=== PATIENT | female | born 1960 | race Two or more races ===

== ENCOUNTER 2022-08-14 09:48 | Outpatient (OUT) | payer MEDICARE, SELFPAY ==
--- NOTE | 2022-08-14 10:05 | CT_ITS ---
[address] [address] Patient Name: MYRIAM GARCIA MRN: [id number] date: 1960 Sex: F Assigned Patient Location: CT Current Patient Location: CT Accession/Order Number: [id number] Exam Date: 08/14/2022 10:08 Report Date: 08/14/2022 13:10 At the request of: YONY GOODE Procedure: CT lung screening low-dose EXAMINATION: CT lung screening low-dose HISTORY: COPD J44.9 COMPARISON: CT chest 02/28/2022 TECHNIQUE: Axial, Coronal, and Sagittal images were created without the administration of IV contrast material. Dose reduction techniques were achieved by using automated exposure control and/or adjustment of mA and/or kV according to patient size and/or use of iterative reconstruction technique. FINDINGS: LUNGS: Small blebs within the peripheral right lung apex. No acute infiltrates, suspicious nodules, or significant chronic interstitial changes. Clearing of previously seen small opacity within posterior lateral right costophrenic angle. Borderline mild bronchiectasis. PLEURA: No mass, effusion, or pneumothorax. VASCULATURE: No abnormality. LASHONDA: No mass or pathologic adenopathy. MEDIASTINUM: No mass or pathologic adenopathy. CARDIAC: Atherosclerotic coronary artery disease. No pericardial effusion. AORTA: No aneurysm or dissection. CHEST WALL: No mass or axillary adenopathy BONES: No bone lesion or fracture. LIMITED ABDOMEN: No suspicious findings. Limited images of the upper abdomen. OTHER: Negative. IMPRESSION: 1. Lung-RADS Category 1 Negative. No nodules and definitely benign nodules. Continue annual screening with LDCT in 12 months. Electronically authenticated by: KWAME RICARDO Date: 08/14/2022 13:10
== END 2022-08-14 09:49 ==
LOC: CT 09:56
PROVIDERS: PCP Family Medicine; Visit Provider Family Medicine
DX: J44.9 Chronic obstructive pulmonary disease, unspecified (principal)
CPT/HCPCS: 71271

== ENCOUNTER 2022-10-30 09:42 | Outpatient (OUT) | payer MEDICARE, SELFPAY ==
[2022-10-30 11:06] LABS: Basophils Absolute Auto 0.1 10^3/uL (0.0-0.1); Basophils Percent Auto 0.9 % (0.2-2.0); Eosinophils Absolute Auto 0.1 10^3/uL (0.0-0.7); Hematocrit 38.5 % (36.0-48.0); Hemoglobin 13.1 g/dL (12.0-16.0); Immature Granulocytes Abs Auto 0.03 10^3/uL (0.00-0.03); Immature Granulocytes Pct Auto 0.4 % (0.0-0.5); Lymphocytes Absolute Auto 1.3 10^3/uL (1.2-3.8); Lymphocytes Percent Auto 18.5 % (20.5-60.0); Mean Corpuscular Hemoglobin 30.8 pg (26.7-34.0); Mean Corpuscular Volume 90.6 fL (81.0-99.0); Mean Platelet Volume 12.3 fL (9.5-13.5); Monocytes Absolute Auto 0.5 10^3/uL (0.3-0.8); Monocytes Percent Auto 6.7 % (1.7-12.0); Neutrophils Absolute Auto 5.1 10^3/uL (1.4-6.5); Neutrophils Percent Auto 72.5 % (43.0-75.0); Platelet Count 175 10^3/uL (150-450); Red Blood Count 4.25 10^6/uL (4.20-5.40); Red Cell Distribution Width 15.6 % (11.0-15.0)
[2022-10-30 12:08] LABS: Estimated Average Glucose 120 mg/dL; Glycohemoglobin A1C 5.8 % (4.5-6.2)
[2022-10-30 12:51] LABS: Alanine Aminotransferase 20 U/L (14-59); Albumin Globulin Ratio 0.9; Albumin Level 3.7 g/dL (3.4-5.0); Alkaline Phosphatase 148 U/L (46-116); Aspartate Amino Transferase 15 U/L (15-37); BUN Creatinine Ratio 12.6; Bilirubin Total 0.5 mg/dL (0.2-1.0); Carbon Dioxide 25.9 mmol/L (21.0-32.0); Chloride 101 mmol/L (98-107); Chol HDL Ratio 4.6; Cholesterol 228 mg/dL (<=200); Estimated GFR (African America 51 (>=60); Estimated GFR (Non-African Ame 42 (>=60); Free T3 2.18 pg/mL (2.18-3.98); Globulin 4.2 g/dL; Glucose 140 mg/dL (74-106); HDL Cholesterol 50 mg/dL (40-60); Potassium 3.9 mmol/L (3.5-5.1); Sodium 137 mmol/L (136-145); Thyroid Stimulating Hormone 3.055 uIU/mL (0.358-3.740); Total Protein 7.9 g/dL (6.4-8.2); Triglycerides 178 mg/dL (<=150); VLDL CHOLESTEROL 35.6 mg/dL
== END 2022-10-30 09:43 | disposition home or self-care (01) ==
LOC: LAB 09:45
PROVIDERS: PCP Family Medicine; Visit Provider Family Medicine
DX: E03.9 Hypothyroidism, unspecified (principal); R53.82 Chronic fatigue, unspecified
CPT/HCPCS: 36415; 80053; 80061; 82306; 83036; 84436; 84443; 84481; 85025

== ENCOUNTER 2023-03-19 09:49 | Outpatient (OUT) | payer OTHER, SELFPAY ==
[2023-03-19 12:46] LABS: Anion Gap 12.8; BUN Creatinine Ratio 14.5; Calcium 8.9 mg/dL (8.5-10.1); Carbon Dioxide 26.3 mmol/L (21.0-32.0); Chloride 105 mmol/L (98-107); Estimated GFR (African America 36 (>=60); Estimated GFR (Non-African Ame 30 (>=60); Glucose 155 mg/dL (74-106); Potassium 4.1 mmol/L (3.5-5.1); Sodium 140 mmol/L (136-145)
== END 2023-03-19 09:50 | disposition home or self-care (01) ==
PROVIDERS: PCP Family Medicine; Visit Provider Nurse Practitioner
DX: I25.10 Atherosclerotic heart disease of native coronary artery without angina pectoris (principal); I10 Essential (primary) hypertension
CPT/HCPCS: 36415; 80048

== ENCOUNTER 2023-04-16 09:17 | Outpatient (OUT) | payer OTHER, SELFPAY ==
--- OUTSIDE RECORDS SUMMARY | 2023-04-16 09:21 | XMS_ITS | CCD ---
Author Name Unknown Address [address] [facility] [address] [place] [address] Organization [facility] Care Team Providers Care Search Engine Optimization Specialist Name Role Phone PHYSICIAN, DEFAULT Unavailable Unavailable PHYSICIAN, DEFAULT Unavailable Unavailable YONY GOODE Unavailable Unavailable PHYSICIAN, DEFAULT Unavailable Unavailable PHYSICIAN, DEFAULT Unavailable Unavailable YONY GOODE Unavailable Unavailable HOY ., DR BHAKTA Admitting Unavailable HOY ., DR BHAKTA Attending Unavailable HOY ., DR BHAKTA Primary Care Unavailable HOY ., DR BHAKTA Consulting Unavailable ZIEBER, DR ALEX Palma Consulting Unavailable ELTAHAWY, DR SULLIVAN Admitting Unavailable ELTAHAWY, DR SULLIVAN Attending Unavailable HOY ., DR BHAKTA Primary Care Unavailable ELTAHAWY, DR SULLIVAN Consulting Unavailable HOY ., DR BHAKTA Admitting Unavailable HOY ., DR BHAKTA Attending Unavailable HOY ., DR BHAKTA Primary Care Unavailable HOY ., DR BHAKTA Consulting Unavailable HOY ., DR BHAKTA Primary Care Unavailable PAY ., DR HOLLY Admitting Unavailable PAY ., DR HOLLY Attending Unavailable ZIEBSHOSHANA, DR ALEX Palma Consulting Unavailable PAY ., DR HOLLY Consulting Unavailable HOY ., DR BHAKTA Admitting Unavailable HOY ., DR BHAKTA Attending Unavailable HOY ., DR BHAKTA Primary Care Unavailable HOY ., DR BHAKTA Consulting Unavailable [place], DR MICHAEL Turcios Consulting Unavailable HOY ., DR BHAKTA Admitting Unavailable HOY ., DR BHAKTA Attending Unavailable HOY ., DR BHAKTA Primary Care Unavailable HOY ., DR BHAKTA Consulting Unavailable ZIEBER, DR ALEX Palma Consulting Unavailable BRAINSHONA Attending Unavailable BRAIN, SHONA Attending Unavailable BRAIN, SHONA Attending Unavailable Allergies Allergy Classification Reported Allergen(s) Allergy Type Date of Onset Reaction(s) Facility (1 source) acetaminophen / propoxyphene; Translations: [Darvocet] Drug Allergy 2 [facility] Repository (3 sources) Penicillins; Translations: [PENICILLINS] Drug allergy (disorder) 2 [facility] Repository (1 source) Darvocet-N 100 Drug allergy (disorder) 3 [facility] Repository (1 source) PROPOXYPHENE N-ACETAMINOPHEN; Translations: [PROPOXYPHENE N-ACETAMINOPHEN] Propensity to adverse reactions to drug (disorder) 4 [facility] Repository Problems Active Problems Problem Classification Problem Date Documented Date Episodic/Chronic Chronic obstructive pulmonary disease and bronchiectasis (1 source) Chronic obstructive pulmonary disease, unspecified; Translations: [COPD UNSPECIFIED] Onset: 03-19-2022 Chronic Coronary atherosclerosis and other heart disease (2 sources) Atherosclerotic heart disease of [place] coronary artery without angina pectoris; Translations: [Atherosclerotic heart disease of [place] coronary artery without angina pectoris] Onset: 03-20-2022 Chronic Coronary atherosclerosis and other heart disease (1 source) Presence of coronary angioplasty implant and graft; Translations: [PRESENCE COR ANGPLSTY IMPLANT AND GRAFT] Onset: 07-20-2022 Episodic Diabetes mellitus with complications (1 source) Type 2 diabetes mellitus with diabetic neuropathy, unspecified; Translations: [TYPE 2 DM W/DIABETIC NEUROPATHY UNS] Onset: 03-19-2022 Chronic Diabetes mellitus without complication (1 source) Type 2 diabetes mellitus without complications; Translations: [TYPE 2 DM WITHOUT COMPLICATIONS] Onset: 07-20-2022 Chronic Disorders of lipid metabolism (2 sources) Mixed hyperlipidemia; Translations: [Mixed hyperlipidemia] Onset: 03-20-2022 Chronic Essential hypertension (6 sources) Essential (primary) hypertension; Translations: [ESSENTIAL PRIMARY HYPERTENSION] Onset: 03-20-2022 Chronic Heart valve disorders (2 sources) Nonrheumatic mitral (valve) insufficiency; Translations: [Nonrheumatic mitral (valve) insufficiency] Onset: 03-20-2022 Chronic Malaise and fatigue (1 source) Chronic fatigue, unspecified; Translations: [CHRONIC FATIGUE UNSPECIFIED] Onset: 07-02-2022 Chronic Menopausal disorders (1 source) Hormone replacement therapy; Translations: [HORMONE REPLACEMENT THERAPY] Onset: 07-20-2022 Episodic Multiple sclerosis (5 sources) Multiple sclerosis; Translations: [MULTIPLE SCLEROSIS] Onset: 08-19-2021 Chronic Nonspecific chest pain (8 sources) Chest pain, unspecified; Translations: [Other chest pain] Onset: 03-15-2022 Episodic Other aftercare (1 source) 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; Translations: [[facility] CURRENT USE OF ASPIRIN] Onset: 07-20-2022 Episodic Other aftercare (1 source) 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 components assembler (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; Translations: [OTH FORM MAKER PLASTER CURRENT DRUG THERAPY] Onset: 07-20-2022 Episodic Other nutritional; endocrine; and metabolic disorders (1 source) Obesity, unspecified; Translations: [OBESITY UNSPECIFIED] Onset: 07-20-2022 Chronic Other nutritional; endocrine; and metabolic disorders (1 source) Body mass index (BMI) 25.0-25.9, adult; Translations: [BODY MASS INDEX BMI 25.0-25.9 ADULT] Onset: 07-20-2022 Episodic Other upper respiratory infections (1 source) Acute upper respiratory infection, unspecified; Translations: [ACUTE UP RESPIRATORY INFECTION UNS] Onset: 07-20-2022 Episodic Residual codes; unclassified (1 source) Acquired absence of other specified parts of digestive tract; Translations: [ACQ ABSENCE OTH PART DIGESTV TRACT] Onset: 07-20-2022 Episodic Residual codes; unclassified (1 source) Acquired absence of both cervix and uterus; Translations: [ACQUIRED ABSENCE BOTH CERVIX AND UTERUS] Onset: 07-20-2022 Episodic Substance-related disorders (5 sources) Nicotine dependence, cigarettes, uncomplicated; Translations: [NICOTINE DEPEND CIGARETTES UNCOMP] Onset: 02-28-2022 Chronic Thyroid disorders (5 sources) Hypothyroidism, unspecified; Translations: [HYPOTHYROIDISM UNSPECIFIED] Onset: 06-28-2022 Chronic Unclassified (2 sources) COUGH, UNSPECIFIED; Translations: [COUGH, UNSPECIFIED] Onset: 07-20-2022 Past or Other Problems Problem Classification Problem Date Documented Da te Episodic/Chronic Unclassified (1 source) COUGH, UNSPECIFIED; Translations: [COUGH, UNSPECIFIED] Onset: 07-19-2022 Results Test Name Value Interpretation Reference Range Facility 37on 04-12-2023 37 Decrease lisinopril to 10 mg daily from 20 mg because of elevated kidney function Start hydralazine 25 mg three times a day Normal [facility] Office Visiton 04-12-2023 Follow-up visit [id number] Deepthi Garcia 1960 F Date Provider Department Center 04/12/2023 SHONA SULLIVAN Family History Problem Relation Age of Onset Heart failure Mother Diabetes Mother Dementia Mother Other Father Family Status - Relation Status Age at Mother Father Level of Service:53176 [place] OFFICE/OUTPATIENT ESTABLISHED MOD MDM 30 MIN Normal [facility] Documentationon 03-20-2023 Documentation [id number] Deepthi Garcai 1960 F Date Provider Department Center 03/20/2023 SHONA SULLIVAN Family History Problem Relation Age of Onset Heart failure Mother Diabetes Mother Dementia Mother Other Father Family Status - Relation Status Age at Mother Father Normal [facility] 37on 03-14-2023 37 Increase lisinopril to 20 mg daily (you may take 2 tablets daily until this pill bottle is gone- the next bottle of lisinopril should be 20 mg tablets) Have blood drawn next week to check kidney function Take script for b/p cuff to pharmacy- monitor b/p 1-2 times a day and write down on a paper- bring paper to our next visit. Goal b/p is less than 130/80 Normal [facility] Office Visiton 03-14-2023 Follow-up visit [id number] Deepthi Garcia 1960 F Date Provider Department Center 03/14/2023 SHONA SULLIVAN Family History Problem Relation Age of Onset Heart failure Mother Diabetes Mother Dementia Mother Other Father Family Status - Relation Status Age at Mother Father Level of Service:02029 [place] OFFICE/OUTPATIENT ESTABLISHED MOD MDM 30 MIN Normal [facility] Office Visiton 10-31-2022 Follow-up visit [id number] Deepthi Garcia 1960 F Date Provider Department Center 10/31/2022 SHONA SULLIVAN Family History Problem Relation Age of Onset Heart failure Mother Diabetes Mother Dementia Mother Other Father Family Status - Relation Status Age at Mother Father Level of Service:08961 [place] OFFICE/OUTPATIENT ESTABLISHED MOD MDM 30-39 MIN Reason for Visit and Comments: Follow-up [169625] - 6 month follow up Normal [facility] GROUP A STREP CULTUREon 07-10 S. pyogenes Ag Ql (Unsp spec) Culture Observations: NEGATIVE FOR GROUP A STREPTOCOCCUS. Normal [facility] Comment on above: Performed By: #### S STEFANO GRASTCX ####[facility] [id number] [place], [place] [address]Se. Marbella Jeffery STREPT SCREENon 07-19-2022 STREP SCREEN A Negative Normal NEGATIVE [facility] Comment on above: Performed By: #### S STEFANO GRASTCX ####[facility] [id number] [place], [place] [address]Gy. Marbella Jeffery XR CHEST 2 Von 07-19-2022 XR CHEST 2 V EXAMINATION: XR CHEST 2 V HISTORY: COUGH , congestion COMPARISON: XR chest 08/05/2020 FINDINGS: LUNGS: Hyperexpanded lungs. No significant pulmonary parenchymal abnormalities. VASCULATURE: No increased pulmonary vasculature. PLEURA: No pneumothorax, effusion, or pleural thickening. CARDIAC: No cardiomegaly or cardiac silhouette abnormality. MEDIASTINUM: No visible mass or adenopathy. BONES: No fracture or visible bone lesion. OTHER: Negative. IMPRESSION: 1. No acute cardiopulmonary process. Electronically authenticated by: ALEX LEWIS Date: 2022-07-19 10:18 Normal [facility] CBC AUTO DIFFon 06-28-2022 BASO # 0.1 103/ul Normal 0.0-0.[address] [facility] Comment on above: Performed By: #### C BC #### [facility] [address] [address] [address] Marbella Jeffery Basophils/100 WBC (Bld) 0.7 % Normal 0.2-2.0 [facility] Comment on above: Performed By: #### C BC #### [facility] [address] [address] [address] Marbella Jeffery EO # 0.2 103/ul Normal 0.0-0.[address] [facility] Comment on above: Performed By: #### C BC #### [facility] [address] [address] [address] Marbella Jeffery Eosinophils/100 WBC (Bld) 1.8 % Normal 0.9-7.[address] [facility] Comment on above: Performed By: #### C BC #### [facility] [address] [place] [address] Dr. Marbella Jeffery Erythrocyte distribution width (RBC) [Ratio] 13.5 % Normal 11.0-15.[address] [facility] Comment on above: Performed By: #### C BC #### [facility] [address] [place] [address] Dr. Marbella Jeffery Hematocrit (Bld) [Volume fraction] 35.2 % Critically low 36.0-48.[address] [facility] Comment on above: Performed By: #### C BC #### [facility] [address] [place] [address] Dr. Marbella Jeffery Hemoglobin (Bld) [Mass/Vol] 11.8 g/dL Critically low 12.0-16.[address] [facility] Comment on above: Performed By: #### C BC #### [facility] [address] [place] [address] Dr. Marbella Jeffery IG # 0.02 10e3/ul Normal 0.00-0.[address] [facility] Comment on above: Performed By: #### C BC #### [facility] [address] [place] [address] Dr. Marbella Jeffery IG % 0.2 % Normal 0.0-0.[address] [facility] Comment on above: Performed By: #### C BC #### [facility] [address] [place] [address] Dr. Marbella Jeffery LYMPH # 2.2 103/ul Normal 1.2-3.[address] [facility] Comment on above: Performed By: #### C BC #### [facility] [address] [place] [address] Dr. Marbella Jeffery Lymphocytes/100 WBC (Bld) 25.2 % Normal 20.5-60.[address] [facility] Comment on above: Performed By: #### C BC #### [facility] [address] [place] [address] Dr. Marbella Jeffery MANUAL DIFF REQ NO Normal [facility] Comment on above: Performed By: #### C BC #### [facility] [address] [place] [address] Dr. Marbella Jeffery MCH (RBC) [Entitic mass] 30.3 pg Normal 26.7-34.[address] [facility] Comment on above: Performed By: #### C BC #### [facility] [address] [place] [address] Dr. Marbella Jeffery MCHC (RBC) [Mass/Vol] 33.5 g/dL Normal 29.9-35.[address] [facility] Comment on above: Performed By: #### C BC #### [facility] [address] [place] [address] Dr. Marbella Jeffery MCV (RBC) [Entitic vol] 90.3 fL Normal 81.0-99.[address] [facility] Comment on above: Performed By: #### C BC #### [facility] [address] [place] [address] Dr. Marbella Jeffery MONO # 0.8 103/ul Normal 0.3-0.[address] [facility] Comment on above: Performed By: #### C BC #### [facility] [address] [place] [address] Dr. Marbella Jeffery Monocytes/100 WBC (Bld) 9.2 % Normal 1.7-12.[address] [facility] Comment on above: Performed By: #### C BC #### [facility] [address] [place] [address] Dr. Marbella Jeffery NEUT # 5.5 103/ul Normal 1.4-6.[address] [facility] Comment on above: Performed By: #### C BC #### [facility] [address] [place] [address] Dr. Marbella Jeffery Neutrophils/100 WBC (Bld) 62.9 % Normal 43.0-75.[address] [facility] Comment on above: Performed By: #### C BC #### [facility] [address] [place] [address] Dr. Marbella Jeffery Platelet mean volume (Bld) [Entitic vol] 11.2 fL Normal 9.5-13.[address] [facility] Comment on above: Performed By: #### C BC #### [facility] [address] [address] [address] Marbella Jeffery PLT 203 103/ul Normal 150-[address] [facility] Comment on above: Performed By: #### C BC #### [facility] [address] [address] [address] Marbella Jeffery RBC 3.90 106/ul Critically low 4.20-5.40 [facility] Comment on above: Performed By: #### C BC #### [facility] [address] [address] [address] Marbella Jeffery WBC 8.7 103/ul Normal 4.0-11.[address] [facility] Comment on above: Performed By: #### C BC #### [facility] [address] [place] [address] Dr. Marbella Jeffery FREE THYROXINE INDEX T7on FTI 5.09 Critically high 1.30-4.50 [facility] Comment on above: Performed By: #### T SH, LIPID, CMP, T7 #### [facility] [address] [address] [address] Marbella Jeffery T3U 38.0 % Normal 30.0-39.[address] [facility] Comment on above: Performed By: #### T SH, LIPID, CMP, T7 #### [facility] [address] [place] [address] Dr. Marbella Jeffery T4 [Mass/Vol] 13.40 ug/dL Normal 4.80-13.90 [facility] Comment on above: Performed By: #### T SH, LIPID, CMP, T7 #### [facility] [address] [place] [address] Dr. Marbella Jeffery LIPID PROFILEon 06-28-2022 CHOL-HDL RATIO NORM SEE BELOW Normal [facility] Comment on above: Result Comment: 3.3 - 4.4 LOW RISK 4.4 - 7.1 AVERAGE RISK 7.1 - 11.0 MODERATE RISK >11.0 HIGH RISK Performed By: #### T SH, LIPID, CMP, T7 #### [facility] [address] [address] [address] Marbella Jeffery Cholesterol [Mass/Vol] 137 mg/dL Normal <=[address] [facility] Comment on above: Performed By: #### T SH, LIPID, CMP, T7 #### [facility] [address] [address] [address] Marbella Jeffery Cholesterol in HDL [Mass/Vol] 44 mg/dL Normal 40-60 [facility] Comment on above: Performed By: #### T SH, LIPID, CMP, T7 #### [facility] [address] [address] [address] Marbella Jeffery Cholesterol in LDL [Mass/Vol] 67.2 mg/dL Normal [facility] Comment on above: Performed By: #### T SH, LIPID, CMP, T7 #### [facility] [address] [address] [address] Marbella Jeffery Cholesterol.total/Ch olesterol in HDL [Mass ratio] 3.1 {ratio} Normal [facility] Comment on above: Performed By: #### T SH, LIPID, CMP, T7 #### [facility] [address] [address] [address] Marbella Jeffery HDL NORMAL > or = 60 mg/dl - LOW CARDIOVASCULAR RISK <40 mg/dl - HIGH CARDIOVASCULAR RISK Normal [facility] Comment on above: Performed By: #### T SH, LIPID, CMP, T7 #### [facility] [address] [address] [address] Marbella Jeffery LDL CALC NORMAL SEE BELOW Normal [facility] Comment on above: Result Comment: <100 mg/dl OPTIMAL 100 - 129 mg/dl NEAR OR ABOVE OPTIMAL 130 - 159 mg/dl BORDERLINE HIGH 160 - 189 mg/dl HIGH >190 mg/dl VERY HIGH Performed By: #### T SH, LIPID, CMP, T7 #### [facility] [address] [address] [address] Marbella Jeffery Triglyceride [Mass/Vol] 129 mg/dL Normal <=150 [facility] Comment on above: Performed By: #### T SH, LIPID, CMP, T7 #### [facility] [address] [address] [address] Marbella Jeffery VLDL CALC 25.8 mg/dL Normal [facility] Comment on above: Performed By: #### T SH, LIPID, CMP, T7 #### [facility] [address] [address] [address] Marbella Jeffery PROF 14(COMP METB)on 023 Albumin [Mass/Vol] 3.1 g/dL Critically low 3.4-5.0 [facility] Comment on above: Performed By: #### T SH, LIPID, CMP, T7 #### [facility] [address] [address] [address] Marbella Jeffery Albumin/Globulin [Mass ratio] 0.7 {ratio} Normal [facility] Comment on above: Performed By: #### T SH, LIPID, CMP, T7 #### [facility] [address] [address] [address] Marbella Jeffery ALP [Catalytic activity/Vol] 168 U/L Critically high 46-[address] [facility] Comment on above: Performed By: #### T SH, LIPID, CMP, T7 #### [facility] [address] [address] [address] Marbella Jeffery ALT [Catalytic activity/Vol] 14 U/L Normal 14-[address] [facility] Comment on above: Performed By: #### T SH, LIPID, CMP, T7 #### [facility] [address] [address] [address] Marbella Jeffery Anion gap [Moles/Vol] 12.8 mmol/L Normal [facility] Comment on above: Performed By: #### T SH, LIPID, CMP, T7 #### [facility] [address] [address] [address] Marbella Jeffery AST [Catalytic activity/Vol] 13 U/L Critically low 15-[address] [facility] Comment on above: Performed By: #### T SH, LIPID, CMP, T7 #### [facility] [address] [address] [address] Marbella Jeffery Bilirubin [Mass/Vol] 0.4 mg/dL Normal 0.2-1.[address] [facility] Comment on above: Performed By: #### T SH, LIPID, CMP, T7 #### [facility] [address] [address] [address] Marbella Jeffery Calcium [Mass/Vol] 9.0 mg/dL Normal 8.5-10.1 [facility] Comment on above: Performed By: #### T SH, LIPID, CMP, T7 #### [facility] [address] [address] [address] Marbella Jeffery Chloride [Moles/Vol] 105 mmol/L Normal 98-[address] [facility] Comment on above: Performed By: #### T SH, LIPID, CMP, T7 #### [facility] [address] [place] [address] Dr. Marbella Jeffery CO2 [Moles/Vol] 27.9 mmol/L Normal 21.0-32.0 [facility] Comment on above: Performed By: #### T SH, LIPID, CMP, T7 #### [facility] [address] [place] [address] Dr. Marbella Jeffery Creatinine [Mass/Vol] 1.17 mg/dL Critically high 0.55-1.[address] [facility] Comment on above: Performed By: #### T SH, LIPID, CMP, T7 #### [facility] [address] [place] [address] Dr. Marbella Jeffery EGFR-AF [place]IZ[place] 56 mL/min/1.73m2 Critically low >=60 [facility] Comment on above: Performed By: #### T SH, LIPID, CMP, T7 #### [facility] [address] [place] [address] Dr. Marbella Jeffery EGFR-NON AF CITIZEN [place] 47 mL/min/1.73m2 Critically low >=[address] [facility] Comment on above: Performed By: #### T SH, LIPID, CMP, T7 #### [facility] [address] [address] [address] Marbella Jeffery Globulin (S) [Mass/Vol] 4.5 g/dL Normal [facility] Comment on above: Performed By: #### T SH, LIPID, CMP, T7 #### [facility] [address] [address] [address] Marbella Jeffery Glucose [Mass/Vol] 105 mg/dL Normal 74-106 [facility] Comment on above: Performed By: #### T SH, LIPID, CMP, T7 #### [facility] [address] [place] [address] Dr. Marbella Jeffery Potassium [Moles/Vol] 3.7 mmol/L Normal 3.5-5.[address] [facility] Comment on above: Performed By: #### T SH, LIPID, CMP, T7 #### [facility] [address] [address] [address] Marbella Jeffery Protein [Mass/Vol] 7.6 g/dL Normal 6.4-8.2 [facility] Comment on above: Performed By: #### T SH, LIPID, CMP, T7 #### [facility] [address] [place] [address] Dr. Marbella Jeffery Sodium [Moles/Vol] 142 mmol/L Normal 136-145 [facility] Comment on above: Performed By: #### T SH, LIPID, CMP, T7 #### [facility] [address] [place] [address] Dr. Marbella Jeffery Urea nitrogen [Mass/Vol] 14.0 mg/dL Normal 7.0-18.[address] [facility] Comment on above: Performed By: #### T SH, LIPID, CMP, T7 #### [facility] [address] [place] [address] Dr. Marbella Jeffery Urea nitrogen/Creatinine [Mass ratio] 12.0 mg/mg Normal [facility] Comment on above: Performed By: #### T SH, LIPID, CMP, T7 #### [facility] [address] [place] [address] Dr. Marbella Jeffery TSHon 06-28-2022 TSH Qn m[IU]/L Critically low 0.358-3.740 [facility] Comment on above: Result Comment: TEST REPEATED FOR VERIFICATION Performed By: #### T SH, LIPID, CMP, T7 #### [facility] [address] [place], [place] [address] Dr. Marbella Jeffery PROF CHEM 8 (BAS METB)on Anion gap [Moles/Vol] 11.2 mmol/L Normal [facility] Comment on above: Performed By: #### B MP ####[facility] [id number] [address]Dr. Marbella Jeffery Calcium [Mass/Vol] 9.2 mg/dL Normal 8.5-10.1 [facility] Comment on above: Performed By: #### B MP ####[facility] [id number] [address]Dr. Marbella Jeffery Chloride [Moles/Vol] 102 mmol/L Normal 98-[address] [facility] Comment on above: Performed By: #### B MP ####[facility] [id number] [address]Dr. Marbella Jeffery CO2 [Moles/Vol] 29.3 mmol/L Normal 21.0-32.0 [facility] Comment on above: Performed By: #### B MP ####[facility] [address] [address]Dr. Marbella Jeffery Creatinine [Mass/Vol] 1.32 mg/dL Critically high 0.55-1.[address] [facility] Comment on above: Performed By: #### B MP ####[facility] [id number] [address]Dr. Marbella Jeffery EGFR-AF CITIZEN [place] 49 mL/min/1.73m2 Critically low >=60 [facility] Comment on above: Performed By: #### B MP ####[facility] [address] [address]Dr. Marbella Jeffery EGFR-NON AF CITIZEN OF [place] 41 mL/min/1.73m2 Critically low >=[address] [facility] Comment on above: Performed By: #### B MP ####[facility] [id number] [address]Dr. Marbella Jeffery Glucose [Mass/Vol] 127 mg/dL Critically high 74-106 [facility] Comment on above: Performed By: #### B MP ####[facility] [address] [place] [address] [id number]. Nalinijv Jose D Potassium [Moles/Vol] 4.5 mmol/L Normal 3.5-5.[address] [facility] Comment on above: Performed By: #### B MP ####[facility] [address] [place] [id number]. Marbella Jeffery Sodium [Moles/Vol] 138 mmol/L Normal 136-145 [facility] Comment on above: Performed By: #### B MP ####[facility] [address] [id number]. Nalinijv Jose D Urea nitrogen [Mass/Vol] 20.0 mg/dL Critically high 7.0-18.[address] [facility] Comment on above: Performed By: #### B MP ####[facility] [address] [address]Dr. Marbella Jeffery Urea nitrogen/Creatinine [Mass ratio] 15.2 mg/mg Normal [facility] Comment on above: Performed By: #### B MP ####[facility] [address] [id number]. Marbella Jose D NM STRESS/REST MULTIon 03-15 NM STRESS/REST MULTI Patient: DEEPTHI GARCIA Exam Date: 03/15/2022 : 1960 Gender:F Ordering : DR YONY GOODE . Admission #: [id number] Family : Order #: [id number] CLICK HERE TO VIEW EXAM RADIOLOGY REPORT PROCEDURE: RADIONUCLIDE IMAGING STRESS/REST MULTI COMPARISON: NM STRESS/REST MULTI, 05/28/2019. INDICATIONS: Chest pain TECHNIQUE: Exam Description: Stress/Rest two day protocol gated SPECT Rest Imagin.3 mCi Tc-99m Cardiolite IV on 03/15/2022 Stress Imaging 31.6 mCi Tc-99m Cardiolite IV on 03/15/2022 Exercise Protocol: 0.4 mg Lexiscan given IV Heart Rate (bpm): Rest: 59 Max: 79 PMHR: 50 Blood Pressure: Rest: 212/102 Max: 260/108 Symptoms: Rest and peak stress ECG findings were abnormal and the exercise portion of the study was abnormal per attending physician Dr. Dickerson due to EKG changes, inferolateral downsloping, hypertensive with Lexiscan. For more details please see separate cardiac stress test report. FINDINGS: QUALITY OF STUDY: Excellent. PERFUSION DEFECT: None. LOCATION: N/A SIZE: N/A. SEVERITY: N/A. TYPE: N/A. WALL MOTION: Normal. LV SIZE: Normal. 87 mL. TID / TCD: None; 1.0 LVEF: Normal. Calculated EF 65%. SUMMARY: Myocardial perfusion imaging study is NORMAL. CONCLUSION: 1. Normal nuclear medicine myocardial perfusion scan 2. Abnormal exercise portion of study. Please see Dr. Dickerson's report. Dictated by: Alex Lewis M.D. on 03/16/2022 at 07:20 Approved by: Alex Lewis M.D. on 03/16/2022 at 07:[address] [facility] CT LUNG CANCER SCREENINGon 1 05-02-2021 CT LUNG CANCER SCREENING EXAMINATION: CT LUNG CANCER SCREENING HISTORY: Tobacco dependence caused by cigarettes COMPARISON: No relevant comparison available. TECHNIQUE: Axial, Coronal, and Sagittal images were created without the administration of IV contrast material. Dose reduction techniques were achieved by using automated exposure control and/or adjustment of mA and/or kV according to patient size and/or use of iterative reconstruction technique. FINDINGS: LUNGS: Mild emphysematous changes within the apices and mild apical pleural scarring. 9 x 11 x 11 mm patchy opacity within posterior lateral right costophrenic angle. PLEURA: No mass, effusion, or pneumothorax. VASCULATURE: No abnormality. LASHONDA: No mass or pathologic adenopathy. MEDIASTINUM: No mass or pathologic adenopathy. CARDIAC: No enlargement, pericardial thickening, or significant calcification. AORTA: Small aneurysmal outpouching along the posterior left lateral wall of the distal descending aorta, 3.2 cm in diameter (2.8 cm in diameter just above this level). CHEST WALL: No mass or axillary adenopathy BONES: No bone lesion or fracture. LIMITED ABDOMEN: No suspicious findings. Limited images of the upper abdomen. OTHER: Negative. IMPRESSION: 1. Lung-RADS Category 3- Probably benign. Probably benign finding(s)- short term follow up suggested; includes nodules with a low likelihood of becoming a clinically active cancer. Six month LDCT. 2. Focal opacity, likely infiltrate or atelectasis within posterior lateral right costophrenic angle. Follow-up CT chest in 6 months. 3. Tiny aneurysmal dilation of the descending thoracic aorta. This can be reevaluated at time of the six-month follow-up CT chest study. Electronically authenticated by: ALEX LEWIS Date: 2022-03-01 08:03 Normal [facility] MRI BRAIN WO W CONon 022 MRI BRAIN WO W CON EXAMINATION: MRI BRAIN WO W CON HISTORY: Multiple sclerosis , acute dizziness, recurrent visual change COMPARISON: No relevant comparison available. TECHNIQUE: A variety of imaging planes and parameters were utilized for visualization of suspected pathology. Images were performed with 14 ml Dotarem contrast. FINDINGS: Motion artifact limits exam from uncontrolled patient coughing CEREBRUM: No hemorrhage, acute infarct or mass. Extensive white matter signal abnormality with increased T2 and FLAIR signal but no associated restricted diffusion or postcontrast enhancement CEREBELLUM: No edema, hemorrhage, mass, acute infarction, or inappropriate atrophy. BRAINSTEM: No edema, hemorrhage, mass, acute infarction, or inappropriate atrophy. CSF SPACES: Ventricles, cisterns, and sulci are appropriate for age. No hydrocephalus, subarachnoid hemorrhage, or mass. SKULL: No mass or other significant visible lesion. SINUSES: Limited views demonstrate no significant mucosal thickening or fluid. ORBITS: Limited views are unremarkable. OTHER: No abnormal meningeal or parenchymal enhancement. IMPRESSION: Extensive white matter signal abnormality. Findings are consistent with known multiple sclerosis. No areas of restricted diffusion or postcontrast enhancement to suggest acute demyelination Electronically authenticated by: MICHAEL ELIZONDO Date: 2021-08-20 08:33 Normal [facility] CREATININEon 08-19-2021 Creatinine [Mass/Vol] 1.35 mg/dL Critically high 0.55-1.[address] [facility] Comment on above: Performed By: #### C SHILO #### [facility] [address] [address] [address] Marbella Jeffery EGFR-AF CITIZEN [place] 48 mL/min/1.73m2 Critically low >=60 [facility] Comment on above: Performed By: #### C SHILO #### [facility] [address] [address] [address] Marbella Jeffery EGFR-NON AF CITIZEN [place] 40 mL/min/1.73m2 Critically low >=60 [facility] Comment on above: Performed By: #### C SHILO #### [facility] [address] [address] [address] Marbella Jeffery Encounters Encounter Date Encounter Type Care Provider Facility Start: 04-12-2023 End: 04-12-2023 ambulatory [facility] Start: 03-14-2023 End: 03-14-2023 ambulatory [facility] Start: 10-31-2022 End: 10-31-2022 ambulatory [facility] Start: 07-19-2022 End: 07-19-[address] YONY GOODE . Facility:[facility] Start: 06-28-2022 End: 06-29-[address] YONY GOODE . Facility:[facility] Start: 03-28-2022 End: 03-29-[address] LAURIE ROB Facility:[facility] Start: 03-15-2022 End: 03-16-[address] YONY GOODE . Facility:[facility] Start: 02-28-2022 End: 03-01-[address] YONY GOODE . Facility:[facility] Start: 08-19-2021 End: 08-20-[address] YONY GOODE . Facility: Start: 12-27-2017 End: 12-28-2017 Patient encounter DEFAULT PHYSICIAN Facility:[facility] Start: 12-03-2017 End: 12-04-2017 Patient encounter DEFAULT PHYSICIAN Facility:[facility] Payers Date Payer Category Payer Medicare [id number] 2017 Unknown [id number] 1961 Medicaid [id number] 1961 Medicare [id number] 1960 Unknown [id number] 2.16.84 [id number] 1960 Unknown [id number] 2.16.84 [id number] 1960 Unknown [id number] 2.16.84 [id number] 1960 Unknown [id number] 2.16.84 [id number] 1960 Unknown [id number] 2.16.84 [id number] 1960 Unknown [id number] 2.16.84 [id number] Unknown Clinical Notes 10-31-2022 to 04-12-2023 Note Date & Type Note Facility 04-12-2023 Note Decrease lisinopril to 10 mg daily, repeat BMP in 1 week in light she is taking Chlorthalidone, lisinopril and aldactone. Hopefully renal function improves and HTN is controlled. [facility] 04-12-2023 Note [facility] CARDIOLOGY PROGR ESS NOTE HPI: Deepthi Garcia is a 63 y.o. female here for uncontrolled HTN with increased lisinopril and renal function increased. HPI 63 yo female presents to clinic for 1 month f/U and evaluation of HTN. Patient here for 1 mo follow up atypical chest pain, CAD, and hypertension. She was started on isosorbide, and lisinopril was increased at last visit. She states chest pain is less frequent. C/o fatigue and not feeling like myself . Patient states she no longer enjoys the things she used to enjoy. Advised her to see PCP for this for possible medication adjustment. Denies SOB, palpitations, and LE edema. After BMP on 03/19, Maddy Lawson wanted her to go back down on lisinopril due to elevated s.cr and add hydralazine. This change did not happen because we were unable to contact patient. Currently b/p is much improved but unfortunately her renal function elevated with increased lisinopril dose. Will decrease lisinopril back to 10 mg, add hydralazine 25 mg tid and repeat labs in 1 week to assess renal function Review of Systems Constitutional: Positive for malaise/fatigue. Cardiovascular: Positive for chest pain (less frequent). Musculoskeletal: Positive for back pain, joint pain, muscle weakness, myalgias and neck pain. Neurological: Positive for light-headedness. Psychiatric/Behavioral: The patient is nervous/anxious. All other systems reviewed and are negative. Visit Vitals BP 148/78 (BP Location: Left arm, Patient Position: Sitting) Pulse 54 Ht 1.575 m (5' 2 ) Wt 60.8 kg (134 lb) SpO2 100% BMI 24.51 kg/m??? Smoking Status Every Day BSA 1.63 m??? Allergies Allergen Reactions Penicillins Hives Darvocet-N 100 [Propoxyphene N-Acetaminophen] Other Medications: Current Outpatient Medications on File Prior to Visit Medication Sig Dispense Refill aspirin 81 mg EC tablet Take 1 tablet every day by oral route. carvedilol (Coreg) 25 mg tablet Take one tablet BID this replaces metoprolol (Patient taking differently: Take 25 mg by mouth with breakfast and with evening meal. Take one tablet BID this replaces metoprolol) 180 tablet 3 chlorthalidone (Hygroton) 25 mg tablet Take 1 tablet (25 mg) by mouth in the morning. 90 tablet 3 citalopram (CeleXA) 20 mg tablet Take 1 tablet every day by oral route for 30 days. diclofenac (Voltaren) 75 mg EC tablet Take 75 mg by mouth in the morning and at bedtime. Do not crush, chew, or split. ezetimibe (Zetia) 10 mg tablet Take 1 tablet (10 mg) by mouth at bedtime. 90 tablet 3 isosorbide mononitrate ER (Imdur) 30 mg 24 hr tablet Take 1 tablet (30 mg) by mouth in the morning. Do not crush or chew. 90 tablet 3 levothyroxine (Synthroid, Levoxyl) 200 mcg tablet Take 200 mcg by mouth before breakfast. lisinopril 10 mg tablet Take 1 tablet (10 mg) by mouth in the morning. (Patient taking differently: Take 20 mg by mouth in the morning.) 90 tablet 3 meclizine (Antivert) 25 mg tablet Take 1 tablet (25 mg) by mouth if needed in the morning, at noon, and at bedtime for dizziness. 30 tablet 1 simvastatin (Zocor) 20 mg tablet Take 1 tablet (20 mg) by mouth at bedtime. 90 tablet 3 spironolactone (Aldactone) 25 mg tablet Take 1 tablet (25 mg) by mouth in the morning. 90 tablet 3 hydrALAZINE (Apresoline) 25 mg tablet Take 1 tablet (25 mg) by mouth in the morning, at noon, and at bedtime. (Patient not taking: Reported on 04/12/2023) 90 tablet 11 pantoprazole (ProtoNix) 40 mg EC tablet Take 40 mg by mouth in the morning. [DISCONTINUED] cetirizine 10 mg capsule Take 1 capsule every day by oral route. [DISCONTINUED] donepezil (Aricept) 10 mg tablet Take 10 mg by mouth at bedtime. No current facility-administered medications on file prior to visit. Physical Exam: Constitutional: Appearance: Normal appearance. Without apparent distress HENT: Head: Normocephalic and atraumatic. Nose: Nose normal. Mouth/Throat: Mouth: Mucous membranes are moist. Eyes: Extraocular Movements: Extraocular movements intact. Conjunctiva/sclera: Conjunctivae normal. Neck: Vascular: No JVD. Cardiovascular: Rate and Rhythm: Normal rate and regular rhythm. Pulses: Radial pulses are 3 on the right side and 3on the left side. Posterior tibial pulses are 3 on the right side and 3 on the left side. Heart sounds: Normal heart sounds, S1 normal and S2 normal. Pulmonary: Effort: Pulmonary effort is normal. Breath sounds: Normal breath sounds. Abdominal: General: Bowel sounds are normal. Palpations: Abdomen is soft. Musculoskeletal: General: Normal range of motion. Cervical back: Normal range of motion. Right lower leg: No edema. Left lower leg: No edema. Skin: General: Skin is warm and dry. Capillary Refill: Capillary refill takes less than 2 seconds. Neurological: General: No focal deficit present. Mental Status: She is alert and oriented to person, place, and time. Psychiatric: Mood and Affect: Mood normal. (more content not included)... [facility] 04-12-2023 Note Patient here for 1 m o follow up atypical chest pain, CAD, and hypertension. She was started on isosorbide, and lisinopril was increased at last visit. She states chest pain is less frequent. C/o fatigue and not feeling like myself . Patient states she no longer enjoys the things she used to enjoy. Advised her to see PCP for this for possible medication adjustment. Denies SOB, palpitations, and LE edema. After BMP on 03/19, Maddy Lawson wanted her to go back down on lisinopril due to elevated s.cr and add hydralazine. This change did not happen because we were unable to contact patient. Review of Systems Constitutional: Positive for malaise/fatigue. Cardiovascular: Positive for chest pain (less frequent). Musculoskeletal: Positive for back pain, joint pain, muscle weakness, myalgias and neck pain. Neurological: Positive for light-headedness. Psychiatric/Behavioral: The patient is nervous/anxious. All other systems reviewed and are negative. [facility] 04-12-2023 Note Hypertension is much improved- but renal function increased therefore decrease lisinopril to 10 mg daily and add hydralazine 25 mg tid. Repeat labs- BMP in 1 week to check renal function RTC 1 month [facility] 04-12-2023 Note Coronary artery dise ase is stable Continue GDMT continue risk factor modifications- heart healthy diet, regular exercise as tolerated and continue all medications. [facility] 03-20-2023 Note At last visit HTN wa s uncontrolled therefore lisinopril was increased to 20 mg daily. Repeat BMP shows increased renal function with Bun 25 and CR 1.72, K+ normal Typically CR is around 1.2-1.3 Therefore will decrease lisinopril back to 10 mg daily and add hydralazine 25 mg po tid for HTN. Note that pt was not able to afford B/p cuff at this time. Repeat BMP in 1-2 weeks and RTC for B/P evaluation in 1 month please Staff to call and update pt. Shona Lawson NP Division of Cardiology, [facility]- [phone] Pager- [phone] Email- [email or web address] 03-20-2023 Note At last visit HTN wa s uncontrolled therefore lisinopril was increased to 20 mg daily. Repeat BMP shows increased renal function with Bun 25 and CR 1.72, K+ normal Typically CR is around 1.2-1.3 Therefore will decrease lisinopril back to 10 mg daily- or 1/2 tab of 20 mg tablets she has now and sent scipt for 10 mg daily, and add hydralazine 25 mg po tid for HTN. Note that pt was not able to afford B/p cuff at this time. Repeat BMP in 1-2 weeks and RTC for B/P evaluation in 1 month please Staff to call and update pt. Shona Lawson BILINGUAL ACCOUNT MANAGER Division of Cardiology, [facility]- [phone] Pager- [phone] Email- [email or web address] 03-14-2023 Note Will send script for meclizine for S/S of vertigo- pt to f/u with PCP for further evaluation and management [facility] 03-14-2023 Note Will add imdur to me d regime, d/w pt to call office for side effects- headache, hypotension or any concerns and she voiced understanding [facility] 03-14-2023 Note Patient here for 6 m o follow up chest pain, CAD, and hypertension. Says her intermittent chest pain remains unchanged. Denies SOB, LE edema, and palpitations. Had a dizzy spell that lasted 2 days around [place]. Says she feels anxious and jumpy and she isn't sure why. Review of Systems Constitutional: Positive for malaise/fatigue and weight loss (18# since 10/31/2022). Cardiovascular: Positive for chest pain (intermittent, unchanged). Musculoskeletal: Positive for back pain, joint pain, muscle weakness, myalgias and neck pain. Neurological: Positive for light-headedness. Psychiatric/Behavioral: The patient is nervous/anxious. All other systems reviewed and are negative. [facility] 03-14-2023 Note UTP CARDIOLOGY PROGR ESS NOTE HPI: Deepthi Garcia is a 62 y.o. female here for 6 mo follow up chest pain, CAD, and hypertension. Says her intermittent chest pain remains unchanged. Denies SOB, LE edema, and palpitations. Had a dizzy spell that lasted 2 days around [place]. Says she feels anxious and jumpy and she isn't sure why. States chest pain is intermittent, with stress and emotional upset, denied CP with exertion, and states CP is sharp like a needle prick middle of chest and lasts about a couple seconds and resolves. Denied SOB, N/V or sweating with CP. Denied SOB, Orthopnea, palpitations. States she can't look up because she gets dizzy. Admits dizzy spell at [place], states that the room starts spinning and I have fallen down twice. Review of Systems Constitutional: Positive for malaise/fatigue and weight loss (18# since 10/31/2022). Cardiovascular: Positive for chest pain (intermittent, unchanged). Musculoskeletal: Positive for back pain, joint pain, muscle weakness, myalgias and neck pain. Neurological: Positive for light-headedness. Psychiatric/Behavioral: The patient is nervous/anxious. All other systems reviewed and are negative. Visit Vitals BP (!) 210/90 (BP Location: Left arm, Patient Position: Sitting) Pulse 57 Ht 1.575 m (5' 2 ) Wt 61.7 kg (136 lb) SpO2 98% BMI 24.87 kg/m??? Smoking Status Every Day BSA 1.64 m??? Allergies Allergen Reactions Penicillins Hives Darvocet-N 100 [Propoxyphene N-Acetaminophen] Other Medications: Current Outpatient Medications on File Prior to Visit Medication Sig Dispense Refill aspirin 81 mg EC tablet Take 1 tablet every day by oral route. carvedilol (Coreg) 25 mg tablet Take one tablet BID this replaces metoprolol (Patient taking differently: Take 25 mg by mouth with breakfast and with evening meal. Take one tablet BID this replaces metoprolol) 180 tablet 3 chlorthalidone (Hygroton) 25 mg tablet Take 1 tablet (25 mg) by mouth in the morning. 90 tablet 3 citalopram (CeleXA) 20 mg tablet Take 1 tablet every day by oral route for 30 days. diclofenac (Voltaren) 75 mg EC tablet Take 75 mg by mouth in the morning and at bedtime. Do not crush, chew, or split. ezetimibe (Zetia) 10 mg tablet Take 1 tablet (10 mg) by mouth at bedtime. 90 tablet 3 levothyroxine (Synthroid, Levoxyl) 200 mcg tablet Take 200 mcg by mouth before breakfast. simvastatin (Zocor) 20 mg tablet Take 1 tablet (20 mg) by mouth at bedtime. 90 tablet 3 spironolactone (Aldactone) 25 mg tablet Take 1 tablet (25 mg) by mouth in the morning. 90 tablet 3 [DISCONTINUED] lisinopril 10 mg tablet Take 1 tablet (10 mg) by mouth in the morning. 90 tablet 3 cetirizine 10 mg capsule Take 1 capsule every day by oral route. donepezil (Aricept) 10 mg tablet Take 10 mg by mouth at bedtime. pantoprazole (ProtoNix) 40 mg EC tablet Take 40 mg by mouth in the morning. [DISCONTINUED] blood pressure test kit-medium kit 1 kit in the morning. 1 kit 0 No current facility-administered medications on file prior to visit. Physical Exam: Constitutional: Appearance: Normal appearance. Without apparent distress HENT: Head: Normocephalic and atraumatic. Nose: Nose normal. Mouth/Throat: Mouth: Mucous membranes are moist. Eyes: Extraocular Movements: Extraocular movements intact. Conjunctiva/sclera: Conjunctivae normal. Neck: Vascular: No JVD. Cardiovascular: Rate and Rhythm: Normal rate and regular rhythm. Pulses: Dorsalis pedis pulses are 3 on the right side and 3on the left side. Posterior tibial pulses are 3 on the right side and 3 on the left side. Heart sounds: Normal heart sounds, S1 normal and S2 normal. Pulmonary: Effort: Pulmonary effort is normal. Breath sounds: Normal breath sounds. Abdominal: General: Bowel sounds are normal. Palpations: Abdomen is soft. Musculoskeletal: General: Normal range of motion. Cervical back: Normal range of motion. Right lower leg: No edema. Left lower leg: No edema. Skin: General: Skin is warm and dry. Capillary Refill: Capillary refill takes less than 2 seconds. Neurological: General: No focal deficit present. Mental Status: She is alert and oriented to person, place, and time. Psychiatric: Mood and Affect: Mood normal. Behavior: Behavior normal. Thought Content: Thought content normal. Judgment: Judgment normal. Labs: 10/31/22 CBC normal BUN 16, CR 1.27- elevated K+ 3.9 normal A1C 5.8 normal Liver function stable Chol 228, Trig 178, LDL 143, HDL 50 Last lab values have been reviewed CV Testin03/15/22 Lexiscan stress test- normal perfusion scan EKG portion- inferolateral lead changes and HTN response- without any symptoms voiced 09/21/2020 Cardiac cath/PCI Echo 02/28/2019 Normal LV systolic function Mild MR Mild TR with increased pulm pressures- Assessment/Plan: Mitral valve regurgitation No concerning symptoms today Monitor with echocardiogram and F/ (more content not included)... [facility] 03-14-2023 Note Coronary artery dise ase is stable Continue GDMT- ASA, coreg, zetia, simvastatin, and lisinopril continue risk factor modifications- heart healthy diet, regular exercise as tolerated and continue all medications. [facility] 03-14-2023 Note Hypertension is unco ntrolled and pt states she is taking medications daily- reports she took all meds today Increase lisinopril to 20 mg daily and add imdur 30 mg for HTN and chest pain [facility] 03-14-2023 Note Continue zocor and zetia [facility] 03-14-2023 Note No concerning sympto ms today Monitor with echocardiogram and F/u assessment of any concerning symptoms [facility] 10-31-2022 Note Stable Monitor with routine echocardiograms [facility] 10-31-2022 Note Lipid abnormalities are stable- will not change any of her meds at this time in light that I don't feel she is taking meds as prescribed r/t turmoil in her life [facility] 10-31-2022 Note Hypertension is unco ntrolled- staff called pharmacy and they report that she has not filled her medications since June and should be out of her meds at this point. Pt reports that she still has her b/p and heart medications- and admits that she occasionally forgets to take her meds Continue all meds, monitor b/p and call office for concerns. Asked pt to reach out community resources, her jainism, family and friends for assistance. IF any concerning symptoms she is to call office or 911 and she voiced understanding of red flag symptoms. [facility] 10-31-2022 Note Coronary artery dise ase is currently stable Recent normal stress test in emir Continue GDMT- ASA, coreg, simvastatin and zetia continue risk factor modifications- heart healthy diet, regular exercise as tolerated and continue all medications. [facility] 10-31-2022 Note EKG today sinus rhyt hm and essentially unchanged from previous, no acute ST or T wave changes noted Most likely r/t emotional/family stress and uncontrolled b/p. [facility] 10-31-2022 Note [facility] CARDIOLOGY PROGR ESS NOTE HPI: Deepthi Garcia is a 62 y.o. female here for Follow-up (6 month follow up ) Chest Pain This is a recurrent problem. The current episode started more than 1 month ago. The onset quality is sudden. The problem occurs rarely. The problem has been resolved. The pain is present in the substernal region. The pain is at a severity of 3/10. The pain is mild. The quality of the pain is described as dull and heavy. The pain does not radiate. Pertinent negatives include no orthopnea, PND or shortness of breath. The pain is aggravated by emotional upset. She has tried nothing for the symptoms. Risk factors include post-menopausal, sedentary lifestyle and stress. Currently pt reports she has had an extreme amount os stress over the last 1-2 months. States that she has been asked to move out of her son's home and is presently homeless. States that she is taking all her medications as prescribed but she does not remember what her meds are currently. Reports chest pain last month. Denied shortness of breath, orthopnea, vision changes, one sided weakness, difficulty with speech or swallowing. She is tearful during our visit. Review of Systems Constitutional: Negative. Respiratory: Positive for chest tightness. Negative for shortness of breath. Cardiovascular: Positive for chest pain. Negative for orthopnea and PND. Neurological: Negative. All other systems reviewed and are negative. Visit Vitals BP (!) 208/86 (BP Location: Left arm, Patient Position: Sitting, BP Cuff Size: Large adult) Pulse 66 Ht 1.575 m (5' 2 ) Wt 69.9 kg (154 lb 3.2 oz) SpO2 100% BMI 28.20 kg/m??? Smoking Status Every Day BSA 1.75 m??? Allergies Allergen Reactions Penicillins Hives Darvocet-N 100 [Propoxyphene N-Acetaminophen] Other Medications: Current Outpatient Medications on File Prior to Visit Medication Sig Dispense Refill aspirin 81 mg EC tablet Take 1 tablet every day by oral route. blood pressure test kit-medium kit 1 kit in the morning. 1 kit 0 carvedilol (Coreg) 25 mg tablet Take one tablet BID this replaces metoprolol (Patient taking differently: Take 25 mg by mouth with breakfast and with evening meal. Take one tablet BID this replaces metoprolol) 180 tablet 3 cetirizine 10 mg capsule Take 1 capsule every day by oral route. citalopram (CeleXA) 20 mg tablet Take 1 tablet every day by oral route for 30 days. donepezil (Aricept) 10 mg tablet Take 10 mg by mouth at bedtime. levothyroxine (Synthroid, Levoxyl) 200 mcg tablet Take 200 mcg by mouth before breakfast. pantoprazole (ProtoNix) 40 mg EC tablet Take 40 mg by mouth in the morning. [DISCONTINUED] chlorthalidone (Hygroton) 25 mg tablet Take 1 tablet (25 mg) by mouth in the morning. 90 tablet 3 [DISCONTINUED] ezetimibe (Zetia) 10 mg tablet Take 10 mg by mouth at bedtime. [DISCONTINUED] lisinopril 10 mg tablet Take 10 mg by mouth in the morning. [DISCONTINUED] simvastatin (Zocor) 20 mg tablet Take 1 tablet every day by oral route. [DISCONTINUED] spironolactone (Aldactone) 25 mg tablet Take 1 tablet (25 mg) by mouth in the morning. 90 tablet 3 No current facility-administered medications on file prior to visit. Physical Exam: Constitutional: Appearance: Normal appearance. Without apparent distress HENT: Head: Normocephalic and atraumatic. Nose: Nose normal. Mouth/Throat: Mouth: Mucous membranes are moist. Eyes: Extraocular Movements: Extraocular movements intact. Conjunctiva/sclera: Conjunctivae normal. Neck: Vascular: No JVD. Cardiovascular: Rate and Rhythm: Normal rate and regular rhythm. Pulses: Dorsalis pedis pulses are 3 on the right side and 3on the left side. Posterior tibial pulses are 3 on the right side and 3 on the left side. Heart sounds: Normal heart sounds, S1 normal and S2 normal. Pulmonary: Effort: Pulmonary effort is normal. Breath sounds: Normal breath sounds. Abdominal: General: Bowel sounds are normal. Palpations: Abdomen is soft. Musculoskeletal: General: Normal range of motion. Cervical back: Normal range of motion. Right lower leg: No edema. Left lower leg: No edema. Skin: General: Skin is warm and dry. Capillary Refill: Capillary refill takes less than 2 seconds. Neurological: General: No focal deficit present. Mental Status: She is alert and oriented to person, place, and time. Psychiatric: Mood and Affect: Mood normal. Behavior: Behavior normal. Thought Content: Thought content normal. Judgment: Judgment normal. Labs: 10/31/22 CBC normal BUN 16, CR 1.27- elevated K+ 3.9 normal A1C 5.8 normal Liver function stable Chol 228, Trig 178, LDL 143, HDL 50 Last lab values have been reviewed CV Testin03/15/22 Lexiscan stress test- normal perfusion scan EKG portion- inferolateral lead changes and HTN response- without any symptoms voiced 09/21/2020 Cardiac cath/PCI Echo 02/28/2019 Normal LV systolic function Mild M (more content not included)... [facility] Summary Purpose Family History No Family History Records FoundNo Family History Records FoundNo Family History Records Found Advance Directives No Advanced Directives Records FoundNo Advanced Directives Records FoundNo Advanced Directives Records Found Additional Source Comments INFORMATION SOURCE (unrecogn ized section and content) DATE CREATED AUTHOR 01/01/2018 [facility] DATE CREATED AUTHOR AUTHOR'S ORGANIZ ATION 07/22/2022 [facility] DATE CREATED AUTHOR AUTHOR'S ORGANIZ ATION 04/13/2023 [facility] FOR RECORDS PERTAINING TO PATIENTS WHO ARE OR HAVE BEEN ENROLLED IN A CHEMICAL DEPENDENCY/SUBSTANCEABUSE PROGRAM, SOME INFORMATION MAY BE OMITTED. This clinical summary was aggregated from multiple sources. Caution should be exercised in using it in the provision of clinical care. This summary normalizes information from multiple sources, and as a consequence, information in this document may materially change the coding, format and clinical context of patient data. In addition, data may be omitted in some cases. CLINICAL DECISIONS SHOULD BE BASED ON THE PRIMARY CLINICAL RECORDS. [employer] provides no warranty or guarantee of the accuracy or completeness of information in this document.
[2023-04-16 10:25] LABS: Anion Gap 15.6; BUN Creatinine Ratio 17.7; Calcium 9.4 mg/dL (8.5-10.1); Carbon Dioxide 20.3 mmol/L (21.0-32.0); Chloride 107 mmol/L (98-107); Estimated GFR (African America 26 (>=60); Estimated GFR (Non-African Ame 21 (>=60); Glucose 101 mg/dL (74-106); Potassium 5.9 mmol/L (3.5-5.1); Sodium 137 mmol/L (136-145)
== END 2023-04-16 09:18 | disposition home or self-care (01) ==
LOC: LAB 09:19
PROVIDERS: PCP Family Medicine; Visit Provider Nurse Practitioner
DX: I25.10 Atherosclerotic heart disease of native coronary artery without angina pectoris (principal); I10 Essential (primary) hypertension
CPT/HCPCS: 36415; 80048

== ENCOUNTER 2023-04-19 08:59 | Outpatient (OUT) | payer OTHER, SELFPAY ==
--- OUTSIDE RECORDS SUMMARY | 2023-04-19 09:05 | XMS_ITS | CCD ---
Author Name Unknown Address [address] [place] [address] Organization [facility] Care Team Providers Care Diesel Engine Specialist Name Role Phone PHYSICIAN, DEFAULT Unavailable [...] Unavailable HOY ., DR BHAKTA Consulting Unavailable [place], DR MICHAEL Tur[employer] Unavailable HOY ., [...] propoxyphene; Translations: [Darvocet] Drug Allergy 2 [facility] Repository (3 sources) Penicillins; Translations: [PENICILLINS] Drug allergy (disorder) 2 AOF [facility] Repository (1 source) Darvocet-N 100 Drug allergy (disorder) 3 [facility] Repository (1 source) PROPOXYPHENE N-ACETAMINOPHEN; Translations: [PROPOXYPHENE N-ACETAMINOPHEN] Propensity to adverse reactions to drug (disorder) 4 [facility] Repository Problems Active Problems Problem Classification Problem Date Documented Date Episodic/Chronic Chronic obstructive pulmonary disease and bronchiectasis (1 source) Chronic obstructive pulmonary disease, unspecified; Translations: [COPD UNSPECIFIED] Onset: 03-19-2022 Chronic Coronary atherosclerosis and other heart disease (2 sources) Atherosclerotic heart disease of [place] coronary artery without angina pectoris; Translations: [Atherosclerotic heart disease of [place] coronary artery without angina pectoris] Onset: 03-20-2022 [...] Onset: 03-15-2022 Episodic Other aftercare (1 source) long term (current) use of aspirin; Translations: [CORRECTION CURRENT USE OF ASPIRIN] Onset: 07-20-2022 Episodic Other aftercare (1 source) Other predatory animal exterminator (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; Translations: [OTH [facility] ATTENDANT CURRENT DRUG THERAPY] Onset: 07-20-2022 Episodic Other [...] 25 mg three times a day Normal [facility] Office Visiton 04-12-2023 Follow-up visit [id number] Deepthi Garcia 1960 F Date Provider Department Center 04/12/2023 SHONA SULLIVAN Family History Problem Relation Age of Onset Heart failure Mother Diabetes Mother Dementia Mother Other Father Family Status - Relation Status Age at Mother Father Level of Service:52084 ND OFFICE/OUTPATIENT ESTABLISHED MOD MDM 30 MIN Normal [facility] Documentationon 03-20-2023 Documentation [id number] Deepthi Garcia 1960 F Date Provider Department Center 03/20/2023 SHONA SULLIVAN Family History Problem Relation Age of Onset Heart failure Mother Diabetes Mother Dementia Mother Other Father Family Status - Relation Status Age at Mother Father Normal [facility] 37on 03-14-2023 37 Increase lisinopril to 20 [...] Goal b/p is less than 130/80 Normal [facility] Office Visiton 03-14-2023 Follow-up visit [id number] Deepthi Garcia 1960 F Date Provider Department Center 03/14/2023 SHONA SULLIVAN Family History Problem Relation Age of Onset Heart failure Mother Diabetes Mother Dementia Mother Other Father Family Status - Relation Status Age at Mother Father Level of Service:12267 ND OFFICE/OUTPATIENT ESTABLISHED MOD MDM 30 MIN Normal [facility] Office Visiton 10-31-2022 Follow-up visit [id number] Deepthi Garcia 1960 F Date Provider Department Center 10/31/2022 SHONA SULLIVAN Family History Problem Relation Age of Onset Heart failure Mother Diabetes Mother Dementia Mother Other Father Family Status - Relation Status Age at Mother Father Level of Service:26546 ND OFFICE/OUTPATIENT ESTABLISHED MOD MDM 30-39 MIN Reason for Visit and Comments: Follow-up [676151] - 6 month follow up Normal [facility] GROUP A STREP CULTUREon 07-10 S. pyogenes Ag Ql (Unsp spec) Culture Observations: NEGATIVE FOR GROUP A STREPTOCOCCUS. Normal [facility] Comment on above: Performed By: #### S STEFANO GRASTCX ####[facility] [address] [place], [place] [address]Iy. Marbella Jeffery STREPT SCREENon 07-19-2022 STREP SCREEN A Negative Normal NEGATIVE [facility] Comment on above: Performed By: #### S STEFANO GRASTCX ####[facility] [address] [place], [place] [address]Vd. Marbella Jeffery XR CHEST 2 Von 07-19-2022 [...] ALEX LEWIS Date: 2022-07-19 10:18 Normal [facility] CBC AUTO DIFFon 06-28-2022 BASO # 0.1 103/ul Normal 0.0-0.1 [facility] Comment on above: Performed By: #### C BC #### [facility] [address] [address] [address] Marbella Jeffery Basophils/100 WBC (Bld) 0.7 % Normal 0.2-2.0 [facility] Comment on above: Performed By: #### C BC #### [facility] [address] [address] [address] Marbella Jeffery EO # 0.2 103/ul Normal 0.0-0.7 [facility] Comment on above: Performed By: #### C BC #### [facility] [address] [address] [address] Marbella Jeffery Eosinophils/100 WBC (Bld) 1.8 % Normal 0.9-7.0 [facility] Comment on above: Performed By: #### C BC #### [facility] [address] [place] [address] Dr. Marbella Jeffery Erythrocyte distribution width (RBC) [Ratio] 13.5 % Normal 11.0-15.0 [facility] Comment on above: Performed By: #### C BC #### [facility] [address] [place] [address] Dr. Marbella Jeffery Hematocrit (Bld) [Volume fraction] 35.2 % Critically low 36.0-48.0 [facility] Comment on above: Performed By: #### C BC #### [facility] [address] [place] [address] Dr. Marbella Jeffery Hemoglobin (Bld) [Mass/Vol] 11.8 g/dL Critically low 12.0-16.0 [facility] Comment on above: Performed By: #### C BC #### [facility] [address] [place] [address] Dr. Marbella Jeffery IG # 0.02 10e3/ul Normal 0.00-0.03 [facility] Comment on above: Performed By: #### C BC #### [facility] [address] [place] [address] Dr. Marbella Jeffery IG % 0.2 % Normal 0.0-0.5 [facility] Comment on above: Performed By: #### C BC #### [facility] [address] [place] [address] Dr. Marbella Jeffery LYMPH # 2.2 103/ul Normal 1.2-3.8 [facility] Comment on above: Performed By: #### C BC #### [facility] [address] [place] [address] Dr. Marbella Jeffery Lymphocytes/100 WBC (Bld) 25.2 % Normal 20.5-60.0 [facility] Comment on above: Performed By: #### C BC #### [facility] [address] [place] [address] Dr. Marbella Jeffery MANUAL DIFF REQ NO Normal [facility] Comment on above: Performed By: #### C BC #### [facility] [address] [place] [address] Dr. Marbella Jeffery MCH (RBC) [Entitic mass] 30.3 pg Normal 26.7-34.0 [facility] Comment on above: Performed By: #### C BC #### [facility] [address] [place] [address] Dr. Marbella Jeffery MCHC (RBC) [Mass/Vol] 33.5 g/dL Normal 29.9-35.2 [facility] Comment on above: Performed By: #### C BC #### [facility] [address] [place] [address] Dr. Marbella Jeffery MCV (RBC) [Entitic vol] 90.3 fL Normal 81.0-99.0 [facility] Comment on above: Performed By: #### C BC #### [facility] [address] [place] [address] Dr. Marbella Jeffery MONO # 0.8 103/ul Normal 0.3-0.8 [facility] Comment on above: Performed By: #### C BC #### [facility] [address] [place] [address] Dr. Marbella Jeffery Monocytes/100 WBC (Bld) 9.2 % Normal 1.7-12.0 [facility] Comment on above: Performed By: #### C BC #### [facility] [address] [place] [address] Dr. Marbella Jeffery NEUT # 5.5 103/ul Normal 1.4-6.5 [facility] Comment on above: Performed By: #### C BC #### [facility] [address] [place] [address] Dr. Marbella Jeffery Neutrophils/100 WBC (Bld) 62.9 % Normal 43.0-75.0 [facility] Comment on above: Performed By: #### C BC #### [facility] [address] [place] [address] Dr. Mareblla Jeffery Platelet mean volume (Bld) [Entitic vol] 11.2 fL Normal 9.5-13.5 [facility] Comment on above: Performed By: #### C BC #### [facility] [address] [address] [address] Marbella Jeffery PLT 203 103/ul Normal 150-450 [facility] Comment on above: Performed By: #### C BC #### [facility] [address] [address] [address] Marbella Jeffery RBC 3.90 106/ul Critically low 4.20-5.40 [facility] Comment on above: Performed By: #### C BC #### [facility] [address] [address] [address] Marbella Jeffery WBC 8.7 103/ul Normal 4.0-11.0 [facility] Comment on above: Performed By: #### C BC #### [facility] [address] [place] [address] Dr. Marbella Jeffery FREE THYROXINE INDEX T7on FTI 5.09 Critically high 1.30-4.50 [facility] Comment on above: Performed By: #### T SH, LIPID, CMP, T7 #### [facility] [address] [address] [address] Marbella Jeffery T3U 38.0 % Normal 30.0-39.0 [facility] Comment on above: Performed By: #### T SH, LIPID, CMP, T7 #### [facility] [address] [place] [address] Dr. Marbella Jeffery T4 [Mass/Vol] 13.40 ug/dL Normal 4.80-13.90 [facility] Comment on above: Performed By: #### T SH, LIPID, CMP, T7 #### [facility] [address] [place] [address] Dr. Marbella Jeffery LIPID PROFILEon 06-28-2022 CHOL-HDL RATIO NORM SEE BELOW Normal [facility] Comment on above: Result Comment: 3.3 - 4.4 LOW RISK 4.4 - 7.1 AVERAGE RISK 7.1 - 11.0 MODERATE RISK >11.0 HIGH RISK Performed By: #### T SH, LIPID, CMP, T7 #### [facility] [address] [address] [address] Marblela Jeffery Cholesterol [Mass/Vol] 137 mg/dL Normal <=200 [facility] Comment on above: Performed By: #### T SH, LIPID, CMP, T7 #### [facility] [address] [address] [address] Marbella Jeffery Cholesterol in HDL [Mass/Vol] 44 mg/dL Normal 40-60 [facility] Comment on above: Performed By: #### T SH, LIPID, CMP, T7 #### [facility] [address] [address] [address] Marbella Jeffery Cholesterol in LDL [Mass/Vol] 67.2 mg/dL Normal [facility] Comment on above: Performed By: #### T SH, LIPID, CMP, T7 #### [facility] [address] [address] [address] Marbella Jeffery Cholesterol.total/Ch olesterol in HDL [Mass ratio] 3.1 {ratio} Normal [facility] Comment on above: Performed By: #### T SH, LIPID, CMP, T7 #### [facility] [address] [address] [address] Marbella Jeffery HDL NORMAL > or = 60 mg/dl - LOW CARDIOVASCULAR RISK <40 mg/dl - HIGH CARDIOVASCULAR RISK Normal [facility] Comment on above: Performed By: #### T SH, LIPID, CMP, T7 #### [facility] [address] [address] [address] Marbella Jeffery LDL CALC NORMAL SEE BELOW Normal [facility] Comment on above: Result Comment: <100 mg/dl OPTIMAL 100 - 129 mg/dl NEAR OR ABOVE OPTIMAL 130 - 159 mg/dl BORDERLINE HIGH 160 - 189 mg/dl HIGH >190 mg/dl VERY HIGH Performed By: #### T SH, LIPID, CMP, T7 #### [facility] [address] [address] [address] Marbella Jeffery Triglyceride [Mass/Vol] 129 mg/dL Normal <=150 [facility] Comment on above: Performed By: #### T SH, LIPID, CMP, T7 #### [facility] [address] [address] [address] Marbella Jeffery VLDL CALC 25.8 mg/dL Normal [facility] Comment on above: Performed By: #### T SH, LIPID, CMP, T7 #### [facility] [address] [address] [address] Marbella Jeffery PROF 14(COMP METB)on 023 Albumin [Mass/Vol] 3.1 g/dL Critically low 3.4-5.0 [facility] Comment on above: Performed By: #### T SH, LIPID, CMP, T7 #### [facility] [address] [address] [address] Marbella Jeffery Albumin/Globulin [Mass ratio] 0.7 {ratio} Normal [facility] Comment on above: Performed By: #### T SH, LIPID, CMP, T7 #### [facility] [address] [address] [address] Marbella Jeffery ALP [Catalytic activity/Vol] 168 U/L Critically high 46-116 [facility] Comment on above: Performed By: #### T SH, LIPID, CMP, T7 #### [facility] [address] [address] [address] Marbella Jeffery ALT [Catalytic activity/Vol] 14 U/L Normal 14-59 [facility] Comment on above: Performed By: #### T SH, LIPID, CMP, T7 #### [facility] [address] [address] [address] Marbella Jeffery Anion gap [Moles/Vol] 12.8 mmol/L Normal [facility] Comment on above: Performed By: #### T SH, LIPID, CMP, T7 #### [facility] [address] [address] [address] Marbella Jeffery AST [Catalytic activity/Vol] 13 U/L Critically low 15-37 [facility] Comment on above: Performed By: #### T SH, LIPID, CMP, T7 #### [facility] [address] [address] [address] Marbella Jeffery Bilirubin [Mass/Vol] 0.4 mg/dL Normal 0.2-1.0 [facility] Comment on above: Performed By: #### T SH, LIPID, CMP, T7 #### [facility] [address] [address] [address] Marbella Jeffery Calcium [Mass/Vol] 9.0 mg/dL Normal 8.5-10.1 [facility] Comment on above: Performed By: #### T SH, LIPID, CMP, T7 #### [facility] [address] [address] [address] Marbella Jeffery Chloride [Moles/Vol] 105 mmol/L Normal 98-107 [facility] Comment on above: Performed By: #### T SH, LIPID, CMP, T7 #### [facility] [address] [place] [address] Dr. Marbella Jeffery CO2 [Moles/Vol] 27.9 mmol/L Normal 21.0-32.0 [facility] Comment on above: Performed By: #### T SH, LIPID, CMP, T7 #### [facility] [address] [place] [address] Dr. Marbella Jeffery Creatinine [Mass/Vol] 1.17 mg/dL Critically high 0.55-1.02 [facility] Comment on above: Performed By: #### T SH, LIPID, CMP, T7 #### [facility] [address] [place] [address] Dr. Marbella Jeffery EGFR-AF IRISH 56 mL/min/1.73m2 Critically low >=60 [facility] Comment on above: Performed By: #### T SH, LIPID, CMP, T7 #### [facility] [address] [place] [address] Dr. Mareblla Jeffery EGFR-NON AF IRISH 47 mL/min/1.73m2 Critically low >=60 [facility] Comment on above: Performed By: #### T SH, LIPID, CMP, T7 #### [facility] [address] [address] [address] Marbella Jeffery Globulin (S) [Mass/Vol] 4.5 g/dL Normal [facility] Comment on above: Performed By: #### T SH, LIPID, CMP, T7 #### [facility] [address] [address] [address] Marbella Jeffery Glucose [Mass/Vol] 105 mg/dL Normal 74-106 [facility] Comment on above: Performed By: #### T SH, LIPID, CMP, T7 #### [facility] [address] [place] [address] Dr. Marbella Jeffery Potassium [Moles/Vol] 3.7 mmol/L Normal 3.5-5.1 [facility] Comment on above: Performed By: #### T SH, LIPID, CMP, T7 #### [facility] [address] [address] [address] Marbella Jeffery Protein [Mass/Vol] 7.6 g/dL Normal 6.4-8.2 [facility] Comment on above: Performed By: #### T SH, LIPID, CMP, T7 #### [facility] [address] [place] [address] Dr. Marbella Jeffery Sodium [Moles/Vol] 142 mmol/L Normal 136-145 [facility] Comment on above: Performed By: #### T SH, LIPID, CMP, T7 #### [facility] [address] [place] [address] Dr. Marbella Jeffery Urea nitrogen [Mass/Vol] 14.0 mg/dL Normal 7.0-18.0 [facility] Comment on above: Performed By: #### T SH, LIPID, CMP, T7 #### [facility] [address] [place] [address] Dr. Marbella Jeffery Urea nitrogen/Creatinine [Mass ratio] 12.0 mg/mg Normal [facility] Comment on above: Performed By: #### T SH, LIPID, CMP, T7 #### [facility] [address] [place] [address] Dr. Marbella Jeffery TSHon 06-28-2022 TSH Qn m[IU]/L Critically low 0.358-3.740 [facility] Comment on above: Result Comment: TEST REPEATED FOR VERIFICATION Performed By: #### T SH, LIPID, CMP, T7 #### [facility] [address] [place], [place] [address] Dr. Marbella Jeffery PROF CHEM 8 (BAS METB)on Anion gap [Moles/Vol] 11.2 mmol/L Normal [facility] Comment on above: Performed By: #### B MP ####[facility] [address] [address]Dr. Marbella Jeffery Calcium [Mass/Vol] 9.2 mg/dL Normal 8.5-10.1 [facility] Comment on above: Performed By: #### B MP ####[facility] [address] [address]Dr. Marbella Jeffery Chloride [Moles/Vol] 102 mmol/L Normal 98-107 [facility] Comment on above: Performed By: #### B MP ####[facility] [address] [address]Dr. Marbella Jeffery CO2 [Moles/Vol] 29.3 mmol/L Normal 21.0-32.0 [facility] Comment on above: Performed By: #### B MP ####[facility] [address] [place] [address]Dr. Marbella Jeffery Creatinine [Mass/Vol] 1.32 mg/dL Critically high 0.55-1.02 [facility] Comment on above: Performed By: #### B MP ####[facility] [address] [place] [address]Dr. Marbella Jeffery EGFR-AF [place]ISH 49 mL/min/1.73m2 Critically low >=60 [facility] Comment on above: Performed By: #### B MP ####[facility] [address] [address]Dr. Marblela Jeffery EGFR-NON AF [place] 41 mL/min/1.73m2 Critically low >=60 [facility] Comment on above: Performed By: #### B MP ####[facility] [address] [place] [address] [address]Dr. Marbella Jeffery Glucose [Mass/Vol] 127 mg/dL Critically high 74-106 [facility] Comment on above: Performed By: #### B MP ####[facility] [address] [place] [address]Dr. Nalinijv Jose D Potassium [Moles/Vol] 4.5 mmol/L Normal 3.5-5.1 [facility] Comment on above: Performed By: #### B MP ####[facility] [address] [place] [address]Dr. Marbella Jeffery Sodium [Moles/Vol] 138 mmol/L Normal 136-145 [facility] Comment on above: Performed By: #### B MP ####[facility] [address] [place] [address]Dr. Nalinijv Jose D Urea nitrogen [Mass/Vol] 20.0 mg/dL Critically high 7.0-18.0 [facility] Comment on above: Performed By: #### B MP ####[facility] [address] [address]Dr. Marbella Jeffery Urea nitrogen/Creatinine [Mass ratio] 15.2 mg/mg Normal [facility] Comment on above: Performed By: #### B MP ####[facility] [address] [place] [id number]. Marbella Jose D NM STRESS/REST MULTIon 03-15 NM STRESS/REST MULTI Patient: DEEPTHI GARCIA Exam Date: 03/15/2022 : 1960 Gender:F Ordering : DR YONY GOODE . Admission #: [id number] Family : Order #: [id number] CLICK HERE TO VIEW EXAM RADIOLOGY REPORT [...] Lewis M.D. on 03/16/2022 at 07:23 Normal [facility] [address] LUNG CANCER SCREENINGon 1 05-02-2021 [...] ALEX LEWIS Date: 2022-03-01 08:03 Normal [facility] MRI BRAIN WO W CONon 022 MRI [...] MICHAEL ELIZONDO Date: 2021-08-20 08:33 Normal [facility] CREATININEon 08-19-2021 Creatinine [Mass/Vol] 1.35 mg/dL Critically high 0.55-1.02 [facility] Comment on above: Performed By: #### C SHILO #### [facility] [address] [address] [address] Marbella Jeffery EGFR-AF [place] 48 mL/min/1.73m2 Critically low >=60 [facility] Comment on above: Performed By: #### C SHILO #### [facility] [address] [address] [address] Marbella Jeffery EGFR-NON AF [place] 40 mL/min/1.73m2 Critically low >=60 [facility] Comment on above: Performed By: #### C SHILO #### [facility] [address] [address] [address] Marbella Jeffery Encounters Encounter Date Encounter Type Care Provider Facility Start: 04-12-2023 End: 04-12-2023 ambulatory [facility] Start: 03-14-2023 End: 03-14-2023 ambulatory [facility] Start: 10-31-2022 End: 10-31-2022 ambulatory [facility] Start: 07-19-2022 End: 07-19-[address] YONY [...] 12-27-2017 End: 12-28-2017 Patient encounter DEFAULT PHYSICIAN Facility:[facility] Start: 12-03-2017 End: 12-04-2017 Patient encounter DEFAULT PHYSICIAN Facility:[facility] Payers Date Payer Category Payer Medicare [id number] 2017 Unknown [id number] 1961 Medicaid [id number] 1961 Medicare [id number] 1960 Unknown [id number] 2.16.84 [id number] 1960 Unknown [id number] 2.16.84 [id number] 1960 Unknown [id number] 2.16.84 [id number] 1960 Unknown [id number] 2.16.84 [id number] 1960 Unknown [id number] 2.16.84 [id number] 1960 Unknown [id number] 2.16.84 [id number] Unknown Clinical Notes 10-31-2022 to 04-12-2023 Note Date & Type Note Facility 04-12-2023 Note Decrease lisinopril to 10 mg daily, repeat BMP in 1 week in light she is taking Chlorthalidone, lisinopril and aldactone. Hopefully renal function improves and HTN is controlled. [facility] 04-12-2023 Note [facility]TP CARDIOLOGY PROGR ESS NOTE [...] Affect: Mood normal. (more content not included)... [facility] 04-12-2023 Note Patient here for 1 m [...] All other systems reviewed and are negative. [facility] 04-12-2023 Note Hypertension is much improved- but renal function increased therefore decrease lisinopril to 10 mg daily and add hydralazine 25 mg tid. Repeat labs- BMP in 1 week to check renal function RTC 1 month [facility] 04-12-2023 Note Coronary artery dise ase is stable Continue GDMT continue risk factor modifications- heart healthy diet, regular exercise as tolerated and continue all medications. [facility] 03-20-2023 Note At last visit HTN wa [...] pt. Shona Lawson NP Division of Cardiology, [facility]- [phone] Pager- [phone] Email- [email or web address] 03-20-2023 Note At last visit HTN wa [...] to call and update pt. Shona Lawson ADDING MACHINE OPERATOR Division of Cardiology, [facility]- [phone] Pager- [phone] Email- [email or web address] 03-14-2023 Note Will send script for meclizine for S/S of vertigo- pt to f/u with PCP for further evaluation and management [facility] 03-14-2023 Note Will add imdur to me d regime, d/w pt to call office for side effects- headache, hypotension or any concerns and she voiced understanding [facility] 03-14-2023 Note Patient here for 6 m o follow up chest pain, CAD, and hypertension. Says her intermittent chest pain remains unchanged. Denies SOB, LE edema, and palpitations. Had a dizzy spell that lasted 2 days around [place]. Says she feels anxious and jumpy and she isn't sure why. Review of Systems Constitutional: Positive for malaise/fatigue and weight loss (18# since 10/31/2022). Cardiovascular: Positive for chest pain (intermittent, unchanged). Musculoskeletal: Positive for back pain, joint pain, muscle weakness, myalgias and neck pain. Neurological: Positive for light-headedness. Psychiatric/Behavioral: The patient is nervous/anxious. All other systems reviewed and are negative. [facility] 03-14-2023 Note UTP CARDIOLOGY PROGR ESS NOTE [...] echocardiogram and F/ (more content not included)... [facility] 03-14-2023 Note Coronary artery dise ase is stable Continue GDMT- ASA, coreg, zetia, simvastatin, and lisinopril continue risk factor modifications- heart healthy diet, regular exercise as tolerated and continue all medications. [facility] 03-14-2023 Note Hypertension is unco ntrolled and pt states she is taking medications daily- reports she took all meds today Increase lisinopril to 20 mg daily and add imdur 30 mg for HTN and chest pain [facility] 03-14-2023 Note Continue zocor and zetia [facility] 03-14-2023 Note No concerning sympto ms today Monitor with echocardiogram and F/u assessment of any concerning symptoms [facility] 10-31-2022 Note Stable Monitor with routine echocardiograms [facility] 10-31-2022 Note Lipid abnormalities are stable- will not change any of her meds at this time in light that I don't feel she is taking meds as prescribed r/t turmoil in her life [facility] 10-31-2022 Note Hypertension is unco ntrolled- staff [...] pt to reach out community resources, her yazidism, family and friends for assistance. IF any concerning symptoms she is to call office or 911 and she voiced understanding of red flag symptoms. [facility] 10-31-2022 Note Coronary artery dise ase is currently stable Recent normal stress test in emir Continue GDMT- ASA, coreg, simvastatin and zetia continue risk factor modifications- heart healthy diet, regular exercise as tolerated and continue all medications. [facility] 10-31-2022 Note EKG today sinus rhyt hm and essentially unchanged from previous, no acute ST or T wave changes noted Most likely r/t emotional/family stress and uncontrolled b/p. [facility] 10-31-2022 Note UTP CARDIOLOGY PROGR ESS NOTE [...] function Mild M (more content not included)... [facility] Summary Purpose Family History No Family History Records FoundNo Family History Records FoundNo Family History Records Found Advance Directives No Advanced Directives Records FoundNo Advanced Directives Records FoundNo Advanced Directives Records Found Additional Source Comments INFORMATION SOURCE (unrecogn ized section and content) DATE CREATED AUTHOR 01/01/2018 [facility] DATE CREATED AUTHOR AUTHOR'S ORGANIZ ATION 07/22/2022 [facility] DATE CREATED AUTHOR AUTHOR'S ORGANIZ ATION 04/13/2023 [facility] FOR RECORDS PERTAINING TO PATIENTS WHO [...] BE BASED ON THE PRIMARY CLINICAL RECORDS. [employer] provides no warranty or guarantee of the accuracy or completeness of information in this document.
[2023-04-19 09:54] LABS: Anion Gap 11.5; BUN Creatinine Ratio 15.9; Calcium 9.1 mg/dL (8.5-10.1); Carbon Dioxide 24.7 mmol/L (21.0-32.0); Chloride 106 mmol/L (98-107); Estimated GFR (African America 34 (>=60); Estimated GFR (Non-African Ame 28 (>=60); Glucose 109 mg/dL (74-106); Potassium 5.2 mmol/L (3.5-5.1); Sodium 137 mmol/L (136-145)
== END 2023-04-19 09:00 | disposition home or self-care (01) ==
LOC: LAB 09:01
PROVIDERS: PCP Family Medicine; Visit Provider Family Medicine
DX: E87.5 Hyperkalemia (principal)
CPT/HCPCS: 36415; 80048

== ENCOUNTER 2023-05-01 09:34 | Outpatient (OUT) | payer OTHER, SELFPAY ==
--- OUTSIDE RECORDS SUMMARY | 2023-05-01 09:40 | XMS_ITS | CCD ---
Author Name Unknown Address [address] [place] [address] Organization [facility] Care Team Providers Care Client Executive Name Role Phone PHYSICIAN, DEFAULT Unavailable Unavailable [...] Unavailable PAY ., DR HOLLY Attending Unavailable ZIEBER, DR ALEX Palma Consulting Unavailable PAY ., DR HOLLY Consulting Unavailable HOY ., DR BHAKTA Admitting Unavailable HOY ., DR BHAKTA Attending Unavailable HOY ., DR BHAKTA Primary Care Unavailable HOY ., DR BHAKTA Consulting Unavailable POINT, DR MICHAEL Turcios Consulting Unavailable HOY ., [...] propoxyphene; Translations: [Darvocet] Drug Allergy 2 [facility] Repository (3 sources) Penicillins; Translations: [PENICILLINS] Drug allergy (disorder) 2 AOF [facility] Repository (1 source) Darvocet-N 100 Drug allergy (disorder) 3 [facility] Repository (1 source) PROPOXYPHENE N-ACETAMINOPHEN; Translations: [PROPOXYPHENE N-ACETAMINOPHEN] Propensity to adverse reactions to drug (disorder) 4 [facility] Repository Problems Active Problems Problem Classification Problem Date Documented Date Episodic/Chronic Chronic obstructive pulmonary disease and bronchiectasis (1 source) Chronic obstructive pulmonary disease, unspecified; Translations: [COPD UNSPECIFIED] Onset: 03-19-2022 Chronic Coronary atherosclerosis and other heart disease (2 sources) Atherosclerotic heart disease of [place] coronary artery without angina pectoris; Translations: [Atherosclerotic heart disease of [place] coronary artery without angina pectoris] Onset: 03-20-2022 [...] sclerosis; Translations: [MULTIPLE SCLEROSIS] Onset: 08-19-2021 Chronic Other aftercare (1 source) 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; Translations: [PRISON CURRENT USE OF ASPIRIN] Onset: 07-20-2022 Episodic Other aftercare (1 source) Other 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 I peaked at them. Looks like renal function is back to improving. Yea, let's try to stay in the loop about what's going on. Can even call Zahida's office Rosalie to see what they did if she's confused about things. [facility] 36 Please let her know her kidney function has further worsened along with elevated potassium. Please have her hold lisinopril - will try to resume once her kidney function returns to normal. Stop spironolactone. Increase hydralazine to 50mg TID. Follow-up BMP in 1 week. Follow-up phone call in 1 week for her BP readings. Thanks [facility] Telephoneon 04-20-2023 Telephone [phone] Deepthi Pantoja 1960 F Date Provider Department Center 04/20/2023 IVAN TRIVEDI Family History Problem Relation Age of Onset Heart failure Mother Diabetes Mother Dementia Mother Other Father Family Status - Relation Status Age at Mother Father [facility] 37on 04-12-2023 37 Decrease lisinopril to 10 mg daily from 20 mg because of elevated kidney function Start hydralazine 25 mg three times a day [facility] Office Visiton 04-12-2023 Follow-up visit [id number] Gagandeep Pantojaia 1960 F Date Provider Department Center 04/12/2023 SHONA SULLIVAN Family History Problem Relation Age of Onset Heart failure Mother Diabetes Mother Dementia Mother Other Father Family Status - Relation Status Age at Mother Father Level of Service:62836 [place] OFFICE/OUTPATIENT ESTABLISHED MOD MDM [address] [facility] Documentationon 03-20-2023 Documentation [id number] Deepthi Pantoja 1960 Date Provider Department Center 03/20/2023 SHONA SULLIVAN Family History Problem Relation Age of Onset Heart failure Mother Diabetes Mother Dementia Mother Other Father Family Status - Relation Status Age at Mother Father [facility] 37on 03-14-2023 37 Increase lisinopril to [...] Goal b/p is less than 130/80 Normal [facility] Office Visiton 03-14-2023 Follow-up visit [id number] Deepthi Pantoja 1960 F Date Provider Department Center 03/14/2023 WinsomeSHONA PORTILOL LENY [facility] Family History Problem Relation Age of Onset Heart failure Mother Diabetes Mother Dementia Mother Other Father Family Status - Relation Status Age at Mother Father Level of Service:56557 [place] OFFICE/OUTPATIENT ESTABLISHED MOD MDM 30 MIN Normal [facility] Office Visiton 10-31-2022 Follow-up visit [id number] Deepthi Pantoja 1960 F Provider Department Center 10/31/2022 Winsome-BRAINSHONA [facility] Family History Problem Relation Age of Onset Heart failure Mother Diabetes Mother Dementia Mother Other Father Family Status - Relation Status Age at Mother Father Level of Service:61199 [place] OFFICE/OUTPATIENT ESTABLISHED MOD MDM 30-39 MIN Reason for Visit and Comments: Follow-up [533823] - 6 month follow up Normal [facility] GROUP A STREP CULTUREon 07-10 S. pyogenes Ag Ql (Unsp spec) Culture Observations: NEGATIVE FOR GROUP A STREPTOCOCCUS. Normal [facility] Comment on above: Performed By: #### S STEFANO GRASTCX ####[facility] [address] [id number]. Marbella Jeffery STREPT SCREENon 07-19-2022 STREP SCREEN A Negative Normal NEGATIVE [facility] Comment on above: Performed By: #### S SCRN, GRASTCX ####[facility] [address] [place], [place] [address]Ck. Marbella Jeffery XR CHEST 2 Von 07-19-2022 [...] ALEX LEWIS Date: 2022-07-19 10:18 Normal [facility] CBC AUTO DIFFon 06-28-2022 BASO # 0.1 103/ul Normal 0.0-0.1 [facility] Comment on above: Performed By: #### C BC #### [facility] [address] [place] [address] Dr. Marbella Jeffery Basophils/100 WBC (Bld) 0.7 % Normal 0.2-2.0 [facility] Comment on above: Performed By: #### C BC #### [facility] [address] [place] [address] Dr. Marbella Jeffery EO # 0.2 103/ul Normal 0.0-0.7 [facility] Comment on above: Performed By: #### C BC #### [facility] [address] [place] [address] Dr. Marbella Jeffery Eosinophils/100 WBC (Bld) 1.8 % Normal 0.9-7.0 [facility] Comment on above: Performed By: #### C BC #### [facility] [address] [place] [address] Dr. Marbella Jeffery Erythrocyte distribution width (RBC) [Ratio] 13.5 % Normal 11.0-15.0 [facility] Comment on above: Performed By: #### C BC #### [facility] [address] [place] [address] Dr. Marbella Jeffery Hematocrit (Bld) [Volume fraction] 35.2 % Critically low 36.0-48.0 [facility] Comment on above: Performed By: #### C BC #### [facility] [address] [place] [address] Dr. Marbella Jeffery Hemoglobin (Bld) [Mass/Vol] 11.8 g/dL Critically low 12.0-16.0 [facility] Comment on above: Performed By: #### C BC #### [facility] [address] [place] [address] Dr. Marbella Jeffery IG # 0.02 10e3/ul Normal 0.00-0.03 [facility] Comment on above: Performed By: #### C BC #### [facility] [address] [place] [address] Dr. Marbella Jeffery IG % 0.2 % Normal 0.0-0.5 [facility] Comment on above: Performed By: #### C BC #### [facility] [address] [place] [address] Dr. Marbella Jeffery LYMPH # 2.2 103/ul Normal 1.2-3.8 [facility] Comment on above: Performed By: #### C BC #### [facility] [address] [place] [address] Dr. Marbella Jeffery Lymphocytes/100 WBC (Bld) 25.2 % Normal 20.5-60.0 [facility] Comment on above: Performed By: #### C BC #### [facility] [address] [place] [address] Dr. Marbella Jeffery MANUAL DIFF REQ NO Normal [facility] Comment on above: Performed By: #### C BC #### [facility] [address] [place] [address] Dr. Marbella Jeffery MCH (RBC) [Entitic mass] 30.3 pg Normal 26.7-34.0 [facility] Comment on above: Performed By: #### C BC #### [facility] [address] [place] [address] Dr. Marbella Jeffery MCHC (RBC) [Mass/Vol] 33.5 g/dL Normal 29.9-35.2 [facility] Comment on above: Performed By: #### C BC #### [facility] [address] [place] [address] Dr. Marbella Jeffery MCV (RBC) [Entitic vol] 90.3 fL Normal 81.0-99.0 [facility] Comment on above: Performed By: #### C BC #### [facility] [address] [place] [address] Dr. Marbella Jeffery MONO # 0.8 103/ul Normal 0.3-0.8 [facility] Comment on above: Performed By: #### C BC #### [facility] [address] [address] [address] Marbella Jeffery Monocytes/100 WBC (Bld) 9.2 % Normal 1.7-12.0 [facility] Comment on above: Performed By: #### C BC #### [facility] [address] [address] [address] Marbella Jeffery NEUT # 5.5 103/ul Normal 1.4-6.5 [facility] Comment on above: Performed By: #### C BC #### [facility] [address] [address] [address] Marbella Jeffery Neutrophils/100 WBC (Bld) 62.9 % Normal 43.0-75.0 [facility] Comment on above: Performed By: #### C BC #### [facility] [address] [place] [address] Dr. Marbella Jeffery Platelet mean volume (Bld) [Entitic vol] 11.2 fL Normal 9.5-13.5 [facility] Comment on above: Performed By: #### C BC #### [facility] [address] [place] [address] Dr. Marbella Jeffery PLT 203 103/ul Normal 150-450 [facility] Comment on above: Performed By: #### C BC #### [facility] [address] [place] [address] Dr. Marbella Jeffery RBC 3.90 106/ul Critically low 4.20-5.40 [facility] Comment on above: Performed By: #### C BC #### [facility] [address] [place] [address] Dr. Marbella Jeffery WBC 8.7 103/ul Normal 4.0-11.0 [facility] Comment on above: Performed By: #### C BC #### [facility] [address] [place] [address] Dr. Marbella Jeffery FREE THYROXINE INDEX T7on FTI 5.09 Critically high 1.30-4.50 [facility] Comment on above: Performed By: #### T SH, LIPID, CMP, T7 #### [facility] [address] [address] [address] Marbella Jeffery T3U 38.0 % Normal 30.0-39.0 [facility] Comment on above: Performed By: #### T SH, LIPID, CMP, T7 #### [facility] [address] [address] [address] Marbella Jeffery T4 [Mass/Vol] 13.40 ug/dL Normal 4.80-13.90 [facility] Comment on above: Performed By: #### T SH, LIPID, CMP, T7 #### [facility] [address] [address] [address] Marbella Jeffery LIPID PROFILEon 06-28-2022 CHOL-HDL RATIO NORM SEE BELOW Normal [facility] Comment on above: Result Comment: 3.3 - 4.4 LOW RISK 4.4 - 7.1 AVERAGE RISK 7.1 - 11.0 MODERATE RISK >11.0 HIGH RISK Performed By: #### T SH, LIPID, CMP, T7 #### [facility] [address] [address] [address] Marbella Jeffery Cholesterol [Mass/Vol] 137 mg/dL Normal <=200 [facility] Comment on above: Performed By: #### T SH, LIPID, CMP, T7 #### [facility] [address] [address] [address] Marbella Jeffery Cholesterol in HDL [Mass/Vol] 44 mg/dL Normal 40-60 [facility] Comment on above: Performed By: #### T SH, LIPID, CMP, T7 #### [facility] [address] [address] [address] Marbella Jeffery Cholesterol in LDL [Mass/Vol] 67.2 mg/dL Normal [facility] Comment on above: Performed By: #### T SH, LIPID, CMP, T7 #### [facility] [address] [address] [address] Marbella Jeffery Cholesterol.total/Ch olesterol in HDL [Mass ratio] 3.1 {ratio} Normal [facility] Comment on above: Performed By: #### T SH, LIPID, CMP, T7 #### [facility] [address] [address] [address] Marbella Jeffery HDL NORMAL > or = 60 mg/dl - LOW CARDIOVASCULAR RISK <40 mg/dl - HIGH CARDIOVASCULAR RISK Normal [facility] Comment on above: Performed By: #### T SH, LIPID, CMP, T7 #### [facility] [address] [address] [address] Marbella Jeffery LDL CALC NORMAL SEE BELOW Normal [facility] Comment on above: Result Comment: <100 mg/dl OPTIMAL 100 - 129 mg/dl NEAR OR ABOVE OPTIMAL 130 - 159 mg/dl BORDERLINE HIGH 160 - 189 mg/dl HIGH >190 mg/dl VERY HIGH Performed By: #### T SH, LIPID, CMP, T7 #### [facility] [address] [address] [address] Marbella Jeffery Triglyceride [Mass/Vol] 129 mg/dL Normal <=150 [facility] Comment on above: Performed By: #### T SH, LIPID, CMP, T7 #### [facility] [address] [address] [address] Marbella Jeffery VLDL CALC 25.8 mg/dL Normal [facility] Comment on above: Performed By: #### T SH, LIPID, CMP, T7 #### [facility] [address] [address] [address] Marbella Jeffery PROF 14(COMP METB)on 023 Albumin [Mass/Vol] 3.1 g/dL Critically low 3.4-5.0 [facility] Comment on above: Performed By: #### T SH, LIPID, CMP, T7 #### [facility] [address] [address] [address] Marbella Jeffery Albumin/Globulin [Mass ratio] 0.7 {ratio} Normal [facility] Comment on above: Performed By: #### T SH, LIPID, CMP, T7 #### [facility] [address] [address] [address] Marbella Jeffery ALP [Catalytic activity/Vol] 168 U/L Critically high 46-116 [facility] Comment on above: Performed By: #### T SH, LIPID, CMP, T7 #### [facility] [address] [address] [address] Marbella Jeffery ALT [Catalytic activity/Vol] 14 U/L Normal 14-59 [facility] Comment on above: Performed By: #### T SH, LIPID, CMP, T7 #### [facility] [address] [address] [address] Marbella Jeffery Anion gap [Moles/Vol] 12.8 mmol/L Normal [facility] Comment on above: Performed By: #### T SH, LIPID, CMP, T7 #### [facility] [address] [address] [address] Marbella Jeffery AST [Catalytic activity/Vol] 13 U/L Critically low 15-37 [facility] Comment on above: Performed By: #### T SH, LIPID, CMP, T7 #### [facility] [address] [place] [address] Dr. Marbella Jeffery Bilirubin [Mass/Vol] 0.4 mg/dL Normal 0.2-1.0 [facility] Comment on above: Performed By: #### T SH, LIPID, CMP, T7 #### [facility] [address] [place] [address] Dr. Marbella Jeffery Calcium [Mass/Vol] 9.0 mg/dL Normal 8.5-10.1 [facility] Comment on above: Performed By: #### T SH, LIPID, CMP, T7 #### [facility] [address] [address] [address] Marbella Jeffery Chloride [Moles/Vol] 105 mmol/L Normal 98-107 [facility] Comment on above: Performed By: #### T SH, LIPID, CMP, T7 #### [facility] [address] [place] [address] Dr. Marbella Jeffery CO2 [Moles/Vol] 27.9 mmol/L Normal 21.0-32.0 [facility] Comment on above: Performed By: #### T SH, LIPID, CMP, T7 #### [facility] [address] [address] [address] Marbella Jeffery Creatinine [Mass/Vol] 1.17 mg/dL Critically high 0.55-1.02 [facility] Comment on above: Performed By: #### T SH, LIPID, CMP, T7 #### [facility] [address] [address] [address] Marbella Jeffery EGFR-AF COMORAN 56 mL/min/1.73m2 Critically low >=60 [facility] Comment on above: Performed By: #### T SH, LIPID, CMP, T7 #### [facility] [address] [address] [address] Marbella Jeffery EGFR-NON AF COMORAN 47 mL/min/1.73m2 Critically low >=60 [facility] Comment on above: Performed By: #### T SH, LIPID, CMP, T7 #### [facility] [address] [place] [address] Dr. Marbella Jeffery Globulin (S) [Mass/Vol] 4.5 g/dL Normal [facility] Comment on above: Performed By: #### T SH, LIPID, CMP, T7 #### [facility] [address] [address] [address] Marbella Jeffery Glucose [Mass/Vol] 105 mg/dL Normal 74-106 [facility] Comment on above: Performed By: #### T SH, LIPID, CMP, T7 #### [facility] [address] [address] [address] Marbella Jeffery Potassium [Moles/Vol] 3.7 mmol/L Normal 3.5-5.1 [facility] Comment on above: Performed By: #### T SH, LIPID, CMP, T7 #### [facility] [address] [address] [address] Marbella Jeffery Protein [Mass/Vol] 7.6 g/dL Normal 6.4-8.2 [facility] Comment on above: Performed By: #### T SH, LIPID, CMP, T7 #### [facility] [address] [address] [address] Marbella Jeffery Sodium [Moles/Vol] 142 mmol/L Normal 136-145 [facility] Comment on above: Performed By: #### T SH, LIPID, CMP, T7 #### [facility] [address] [address] [address] Marbella Jeffery Urea nitrogen [Mass/Vol] 14.0 mg/dL Normal 7.0-18.0 [facility] Comment on above: Performed By: #### T SH, LIPID, CMP, T7 #### [facility] [address] [address] [address] Marbella Jeffery Urea nitrogen/Creatinine [Mass ratio] 12.0 mg/mg Normal [facility] Comment on above: Performed By: #### T SH, LIPID, CMP, T7 #### [facility] [address] [address] [address] Marbella Jeffery TSHon 06-28-2022 TSH Qn m[IU]/L Critically low 0.358-3.740 [facility] Comment on above: Result Comment: TEST REPEATED FOR VERIFICATION Performed By: #### T SH, LIPID, CMP, T7 #### [facility] [address] [address] [address] Marbella Jeffery PROF CHEM 8 (BAS METB)on Anion gap [Moles/Vol] 11.2 mmol/L Normal [facility] Comment on above: Performed By: #### B MP ####[facility] [address] [address]DrNaomi Jeffery Calcium [Mass/Vol] 9.2 mg/dL Normal 8.5-10.1 [facility] Comment on above: Performed By: #### B MP ####[facility] [address] [address]DrNaomi Jeffery Chloride [Moles/Vol] 102 mmol/L Normal 98-107 [facility] Comment on above: Performed By: #### B MP ####[facility] [address] [address]DrNaomi Jeffery CO2 [Moles/Vol] 29.3 mmol/L Normal 21.0-32.0 [facility] Comment on above: Performed By: #### B MP ####[facility] [address] [address]Dr. Marbella Jeffery Creatinine [Mass/Vol] 1.32 mg/dL Critically high 0.55-1.02 [facility] Comment on above: Performed By: #### B MP ####[facility] [address] [address]Dr. Marbella Jeffery EGFR-AF COMORAN 49 mL/min/1.73m2 Critically low >=60 [facility] Comment on above: Performed By: #### B MP ####[facility] [address] [place], [place] [address]Dr. Marbella Jeffery EGFR-NON AF COMORAN 41 mL/min/1.73m2 Critically low >=60 [facility] Comment on above: Performed By: #### B MP ####[facility] [address] [place], [place] [address]Dr. Marbella Jeffery Glucose [Mass/Vol] 127 mg/dL Critically high 74-106 [facility] Comment on above: Performed By: #### B MP ####[facility] [address] [place], [place] [address]Dr. Marbella Jeffery Potassium [Moles/Vol] 4.5 mmol/L Normal 3.5-5.1 [facility] Comment on above: Performed By: #### B MP ####[facility] [address] [place], [place] [address]Dr. Marbella Jeffery Sodium [Moles/Vol] 138 mmol/L Normal 136-145 [facility] Comment on above: Performed By: #### B MP ####[facility] [address] [place], [place] [address]Dr. Marbella Jeffery Urea nitrogen [Mass/Vol] 20.0 mg/dL Critically high 7.0-18.0 [facility] Comment on above: Performed By: #### B MP ####[facility] [address] [place], [place] [address]Dr. Marbella Jeffery Urea nitrogen/Creatinine [Mass ratio] 15.2 mg/mg Normal [facility] Comment on above: Performed By: #### B ####[facility] [address] [place], [place] [address]Ts. Marbella Jeffery NM STRESS/REST MULTIon 03-15 NM STRESS/REST MULTI Patient: DEEPTHI PANTOJA Exam Date: 03/15/2022 : 1960 Gender:F Ordering : DR YONY GOODE . Admission #: [id number] Family : Order #: [id number] CLICK HERE TO VIEW EXAM RADIOLOGY REPORT [...] M.D. on 03/16/2022 at 07:23 Normal [facility] CT LUNG CANCER SCREENINGon 1 [...] mass, effusion, or pneumothorax. VASCULATURE: No abnormality. LASHODNA: No mass or pathologic adenopathy. MEDIASTINUM: No [...] by: ALEX LEWIS Date: 2022-03-01 08:03 Normal [facility] MRI BRAIN WO W CONon 08-20- 022 MRI BRAIN WO W CON EXAMINATION: [...] by: MICHAEL ELIZONDO Date: 2021-08-20 08:33 Normal [facility] CREATININEon 08-19-2021 Creatinine [Mass/Vol] 1.35 mg/dL Critically high 0.55-1.02 [facility] Comment on above: Performed By: #### C SHILO #### [facility] [address] [place] [address] Dr. Marbella Jeffery EGFR-AF COMORAN 48 mL/min/1.73m2 Critically low >=60 [facility] Comment on above: Performed By: #### C SHILO #### [facility] [address] [place] [address] Dr. Marbella Jeffery EGFR-NON AF COMORAN 40 mL/min/1.73m2 Critically low >=60 [facility] Comment on above: Performed By: #### C SHILO #### [facility] [address] [place] [address] Dr. Marbella Jeffery Encounters Encounter Date Encounter Type Care Provider Facility Start: 04-12-2023 End: 04-12-2023 ambulatory [facility] Start: 03-14-2023 End: 03-14-2023 ambulatory [facility] Start: 10-31-2022 End: 10-31-2022 ambulatory [facility] Start: 07-19-2022 End: 07-19-[address] YONY GOODE . Facility:[facility] Start: 06-28-2022 End: 06-29-[address] YONY GOODE . Facility:[facility] Start: 03-28-2022 End: 03-29-[address] LAURIE ROB Facility:[facility] Start: 03-15-2022 End: 03-16-[address] YONY GOODE . Facility:[facility] Start: 02-28-2022 End: 03-01-[address] YONY GOODE . Facility: Start: 08-19-2021 End: 08-20-[address] YONY GOODE . Facility: Start: 12-27-2017 End: 12-28-2017 Patient encounter DEFAULT PHYSICIAN Facility:[facility] Start: 12-03-2017 End: 12-04-2017 Patient encounter DEFAULT PHYSICIAN Facility:[facility] Payers Date Payer Category Payer Medicare [id number] 2017 Unknown [id number] 1961 Medicaid [id number] 1961 Medicare [id number] 1960 Unknown [id number] 2.16.84 [id number] 1960 Unknown [id number] 2.16.84 [id number] 1960 Unknown [id number] 2.16.84 [id number] 1960 Unknown [id number] 2.16.84 [id number] 1960 Unknown [id number] 2.16.84 [id number] 1960 Unknown [id number] Unknown Clinical Notes 10-31-2022 to 04-12-2023 Note Date & Type Note Facility 04-12-2023 Note Decrease lisinopril to 10 mg daily, repeat BMP in 1 week in light she is taking Chlorthalidone, lisinopril and aldactone. Hopefully renal function improves and HTN is controlled. [facility] 04-12-2023 Note Patient here for 1 m [...] All other systems reviewed and are negative. [facility] 04-12-2023 Note [facility] CARDIOLOGY PROGR ESS NOTE HPI: Deepthi Pantoja is a 63 y.o. female here for [...] Affect: Mood normal. (more content not included)... [facility] 04-12-2023 Note Hypertension is much improved- but renal function increased therefore decrease lisinopril to 10 mg daily and add hydralazine 25 mg tid. Repeat labs- BMP in 1 week to check renal function RTC 1 month [facility] 04-12-2023 Note Coronary artery dise ase is stable Continue GDMT continue risk factor modifications- heart healthy diet, regular exercise as tolerated and continue all medications. [facility] 03-20-2023 Note At last visit [...] to call and update pt. Shona Lawson ADOPTION SPECIALIST Division of Cardiology, [facility] [phone] Pager- [phone] Email- [email or web address] 03-20-2023 Note At last visit HTN wa [...] to call and update pt. Shona Lawson ADOPTION SPECIALIST Division of Cardiology, [facility] [phone] Pager- [phone] Email- [email or web address] 03-14-2023 Note Will send script for meclizine for S/S of vertigo- pt to f/u with PCP for further evaluation and management [facility] 03-14-2023 Note Will add imdur to me d regime, d/w pt to call office for side effects- headache, hypotension or any concerns and she voiced understanding [facility] 03-14-2023 Note Patient here for 6 m [...] All other systems reviewed and are negative. [facility] 03-14-2023 Note [facility]TP CARDIOLOGY PROGR ESS NOTE HPI: Deepthi Pantoja is a 62 y.o. female here for 6 mo follow up chest pain, CAD, and hypertension. Says her intermittent chest pain remains unchanged. Denies SOB, LE edema, and palpitations. Had a dizzy spell that lasted 2 days around [place]. Says she feels anxious and jumpy and [...] she gets dizzy. Admits dizzy spell at [place], states that the room starts spinning and [...] echocardiogram and F/ (more content not included)... [facility] 03-14-2023 Note Coronary artery dise ase is stable Continue GDMT- ASA, coreg, zetia, simvastatin, and lisinopril continue risk factor modifications- heart healthy diet, regular exercise as tolerated and continue all medications. [facility] 03-14-2023 Note Hypertension is unco ntrolled and pt states she is taking medications daily- reports she took all meds today Increase lisinopril to 20 mg daily and add imdur 30 mg for HTN and chest pain [facility] 03-14-2023 Note [facility] No concerning sympto ms today Monitor with echocardiogram and F/u assessment of any concerning symptoms [facility] 10-31-2022 Note Stable Monitor with routine echocardiograms [facility] 10-31-2022 Note Lipid abnormalities are stable- will not change any of her meds at this time in light that I don't feel she is taking meds as prescribed r/t turmoil in her life [facility] 10-31-2022 Note Hypertension is unco ntrolled- staff [...] pt to reach out community resources, her tenriism, family and friends for assistance. IF any concerning symptoms she is to call office or 911 and she voiced understanding of red flag symptoms. [facility] 10-31-2022 Note Coronary artery dise ase is currently stable Recent normal stress test in [place] Continue GDMT- ASA, coreg, simvastatin and zetia continue risk factor modifications- heart healthy diet, regular exercise as tolerated and continue all medications. [facility] 10-31-2022 Note EKG today sinus rhyt hm and essentially unchanged from previous, no acute ST or T wave changes noted Most likely r/t emotional/family stress and uncontrolled b/p. [facility] 10-31-2022 Note [facility] CARDIOLOGY PROGR ESS NOTE HPI: Deepthi Pantoja is a 62 y.o. female here for [...] function Mild M (more content not included)... [facility] Summary Purpose Family History No Family History Records FoundNo Family History Records FoundNo Family History Records Found Advance Directives No Advanced Directives Records FoundNo Advanced Directives Records FoundNo Advanced Directives Records Found Additional Source Comments INFORMATION SOURCE (unrecogn ized section and content) DATE CREATED AUTHOR 01/01/2018 [facility] DATE CREATED AUTHOR AUTHOR'S ORGANIZ ATION 07/22/2022 [facility] DATE CREATED AUTHOR AUTHOR'S ORGANIZ ATION 04/22/2023 [facility] FOR RECORDS PERTAINING TO PATIENTS WHO [...] BE BASED ON THE PRIMARY CLINICAL RECORDS. [facility] [facility]. provides no warranty or guarantee of the accuracy or completeness of information in this document.
[2023-05-01 10:33] LABS: Anion Gap 15.1; BUN Creatinine Ratio 12.2; Calcium 8.9 mg/dL (8.5-10.1); Carbon Dioxide 25.9 mmol/L (21.0-32.0); Chloride 104 mmol/L (98-107); Estimated GFR (African America 31 (>=60); Estimated GFR (Non-African Ame 26 (>=60); Glucose 114 mg/dL (74-106); Sodium 141 mmol/L (136-145)
== END 2023-05-01 09:35 | disposition home or self-care (01) ==
LOC: LAB 09:35
PROVIDERS: PCP Family Medicine; Visit Provider Family Medicine
DX: I25.9 Chronic ischemic heart disease, unspecified (principal)
CPT/HCPCS: 36415; 80048

== ENCOUNTER 2023-05-08 09:54 | Outpatient (OUT) | payer OTHER, SELFPAY ==
--- OUTSIDE RECORDS SUMMARY | 2023-05-08 09:58 | XMS_ITS | CCD ---
Author Name Unknown Address [address] [facility] [address] [place] [address] Organization [facility] Care Team Providers Care Windows System Admin Name Role Phone PHYSICIAN, DEFAULT Unavailable Unavailable [...] Unavailable HOY ., DR BHAKTA Consulting Unavailable SALMON, DR MICHAEL Turcios Consulting Unavailable HOY ., DR BHAKTA Admitting Unavailable HOY ., DR BHAKTA Attending Unavailable HOY ., DR BHAKTA Primary Care Unavailable HOY ., DR BHAKTA Consulting Unavailable ZIEBER, DR ALEX Palma Consulting Unavailable BRAINSHONA Hoang Attending Unavailable BRAIN, SHONA Attending Unavailable BRAIN, SHONA Attending Unavailable Allergies Allergy Classification Reported Allergen(s) Allergy Type Date of Onset Reaction(s) Facility (1 source) acetaminophen / propoxyphene; Translations: [Darvocet] Drug Allergy 2 [facility] (3 sources) Penicillins; Translations: [PENICILLINS] Drug allergy (disorder) 2 [facility]OF [facility] (1 source) Darvocet-N 100 Drug allergy (disorder) 3 [facility] (1 source) PROPOXYPHENE N-ACETAMINOPHEN; Translations: [PROPOXYPHENE N-ACETAMINOPHEN] Propensity to adverse reactions to drug (disorder) 4 [facility] Problems Active Problems Problem Classification Problem Date Documented Date Episodic/Chronic Chronic obstructive pulmonary disease and bronchiectasis (1 source) Chronic obstructive pulmonary disease, unspecified; Translations: [COPD UNSPECIFIED] Onset: 03-19-2022 Chronic Coronary atherosclerosis and other heart disease (2 sources) Atherosclerotic heart disease of [place] coronary artery without angina pectoris; Translations: [Atherosclerotic heart disease of [place] coronary artery without angina pectoris] Onset: 03-20-2022 [...] Onset: 08-19-2021 Chronic Other aftercare (1 source) terminal carman (current) use of aspirin; Translations: [FPC CURRENT USE OF ASPIRIN] Onset: 07-20-2022 Episodic Other aftercare (1 source) Other salvage determiner (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; Translations: [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 [facility] 36 Please let her know her kidney function has further worsened along with elevated potassium. Please have her hold lisinopril - will try to resume once her kidney function returns to normal. Stop spironolactone. Increase hydralazine to 50mg TID. Follow-up BMP in 1 week. Follow-up phone call in 1 week for her BP readings. Thanks [facility] Telephoneon 04-20-2023 Telephone [phone] Deepthi Pantoja 1960 F Date Provider Department Center 04/20/2023 IVAN TRIVEDI Family History Problem Relation Age of Onset Heart failure Mother Diabetes Mother Dementia Mother Other Father Family Status - Relation Status Age at Mother Father [facility] 37on 04-12-2023 37 Decrease lisinopril to 10 mg daily from 20 mg because of elevated kidney function Start hydralazine 25 mg three times a day [facility] Office Visiton 04-12-2023 Follow-up visit [id number] Gagandeep Pantojaia 1960 F Date Provider Department Center 04/12/2023 SHONA SULLIVAN Family History Problem Relation Age of Onset Heart failure Mother Diabetes Mother Dementia Mother Other Father Family Status - Relation Status Age at Mother Father Level of Service:06426 [place] OFFICE/OUTPATIENT ESTABLISHED MOD MDM 30 MIN [facility] Documentationon 03-20-2023 Documentation [id number] Deepthi Pantoja 1960 Date Provider Department Center 03/20/2023 SHONA SULLIVAN Family History Problem Relation Age of Onset Heart failure Mother Diabetes Mother Dementia Mother Other Father Family Status - Relation Status Age at Mother Father [facility] 37on 03-14-2023 37 Increase lisinopril to 20 [...] Goal b/p is less than 130/80 Normal [facility] Office Visiton 03-14-2023 Follow-up visit [id number] Deepthi Pantoja 1960 F Date Provider Department Center 03/14/2023 WinsomeSHONA PORTILLO [facility] Family History Problem Relation Age of Onset Heart failure Mother Diabetes Mother Dementia Mother Other Father Family Status - Relation Status Age at Mother Father Level of Service:09902 [place] OFFICE/OUTPATIENT ESTABLISHED MOD MDM 30 MIN Normal [facility] Office Visiton 10-31-2022 Follow-up visit [id number] Deepthi Pantoja 1960 F Provider Department Center 10/31/2022 Winsome-BRAINSHONA [facility] Family History Problem Relation Age of Onset Heart failure Mother Diabetes Mother Dementia Mother Other Father Family Status - Relation Status Age at Mother Father Level of Service:38832 [place] OFFICE/OUTPATIENT ESTABLISHED MOD MDM 30-39 MIN Reason for Visit and Comments: Follow-up [649768] - 6 month follow up Normal [facility] GROUP A STREP CULTUREon 07-10 S. pyogenes Ag Ql (Unsp spec) Culture Observations: NEGATIVE FOR GROUP A STREPTOCOCCUS. Normal [facility] Comment on above: Performed By: #### S STEFANO GRASTCX ####[facility] [address] [id number]. Marbella Jeffery STREPT SCREENon 07-19-2022 STREP SCREEN A Negative Normal NEGATIVE [facility] Comment on above: Performed By: #### S SCRN, GRASTCX ####[facility] [address] [place], [place] [address]Mb. Marbella Jeffery XR CHEST 2 Von 07-19-2022 [...] ALEX LEWIS Date: 2022-07-19 10:18 Normal [facility] CBC AUTO DIFFon 06-28-2022 BASO # 0.1 103/ul Normal 0.0-0.1 [facility] Comment on above: Performed By: #### C BC #### [facility] [address] [place] [address] Dr. Marbella Jeffery Basophils/100 WBC (Bld) 0.7 % Normal 0.2-2.0 [facility] Comment on above: Performed By: #### C BC #### [facility] [address] [place] [address] Dr. Marbella Jeffery EO # 0.2 103/ul Normal 0.0-0.7 [facility] Comment on above: Performed By: #### C BC #### [facility] [address] [place] [address] Dr. Marbella Jeffery Eosinophils/100 WBC (Bld) 1.8 % Normal 0.9-7.0 [facility] Comment on above: Performed By: #### C BC #### [facility] [address] [place] [address] Dr. Marbella Jeffery Erythrocyte distribution width (RBC) [Ratio] 13.5 % Normal 11.0-15.0 [facility] Comment on above: Performed By: #### C BC #### [facility] [address] [place] [address] Dr. Marbella Jeffery Hematocrit (Bld) [Volume fraction] 35.2 % Critically low 36.0-48.0 [facility] Comment on above: Performed By: #### C BC #### [facility] [address] [place] [address] Dr. Marbella Jeffery Hemoglobin (Bld) [Mass/Vol] 11.8 g/dL Critically low 12.0-16.0 [facility] Comment on above: Performed By: #### C BC #### [facility] [address] [place] [address] Dr. Marbella Jeffery IG # 0.02 10e3/ul Normal 0.00-0.03 [facility] Comment on above: Performed By: #### C BC #### [facility] [address] [place] [address] Dr. Marbella Jeffery IG % 0.2 % Normal 0.0-0.5 [facility] Comment on above: Performed By: #### C BC #### [facility] [address] [place] [address] Dr. Marbella Jeffery LYMPH # 2.2 103/ul Normal 1.2-3.8 [facility] Comment on above: Performed By: #### C BC #### [facility] [address] [place] [address] Dr. Marbella Jeffery Lymphocytes/100 WBC (Bld) 25.2 % Normal 20.5-60.0 [facility] Comment on above: Performed By: #### C BC #### [facility] [address] [place] [address] Dr. Marbella Jeffery MANUAL DIFF REQ NO Normal [facility] Comment on above: Performed By: #### C BC #### [facility] [address] [place] [address] Dr. Marbella Jeffery MCH (RBC) [Entitic mass] 30.3 pg Normal 26.7-34.0 [facility] Comment on above: Performed By: #### C BC #### [facility] [address] [place] [address] Dr. Marbella Jeffery MCHC (RBC) [Mass/Vol] 33.5 g/dL Normal 29.9-35.2 [facility] Comment on above: Performed By: #### C BC #### [facility] [address] [place] [address] Dr. Marbella Jeffery MCV (RBC) [Entitic vol] 90.3 fL Normal 81.0-99.0 [facility] Comment on above: Performed By: #### C BC #### [facility] [address] [place] [address] Dr. Marbella Jeffery MONO # 0.8 103/ul Normal 0.3-0.8 [facility] Comment on above: Performed By: #### C BC #### [facility] [address] [address] [address] Marbella Jeffery Monocytes/100 WBC (Bld) 9.2 % Normal 1.7-12.0 [facility] Comment on above: Performed By: #### C BC #### [facility] [address] [address] [address] Marbella Jeffery NEUT # 5.5 103/ul Normal 1.4-6.5 [facility] Comment on above: Performed By: #### C BC #### [facility] [address] [address] [address] Marbella Jeffery Neutrophils/100 WBC (Bld) 62.9 % Normal 43.0-75.0 [facility] Comment on above: Performed By: #### C BC #### [facility] [address] [place] [address] Dr. Marbella Jeffery Platelet mean volume (Bld) [Entitic vol] 11.2 fL Normal 9.5-13.5 [facility] Comment on above: Performed By: #### C BC #### [facility] [address] [place] [address] Dr. Marbella Jeffery PLT 203 103/ul Normal 150-450 [facility] Comment on above: Performed By: #### C BC #### [facility] [address] [place] [address] Dr. Marbella Jeffery RBC 3.90 106/ul Critically low 4.20-5.40 [facility] Comment on above: Performed By: #### C BC #### [facility] [address] [place] [address] Dr. Marbella Jeffery WBC 8.7 103/ul Normal 4.0-11.0 [facility] Comment on above: Performed By: #### C BC #### [facility] [address] [place] [address] Dr. Marbella Jeffery FREE THYROXINE INDEX T7on FTI 5.09 Critically high 1.30-4.50 [facility] Comment on above: Performed By: #### T SH, LIPID, CMP, T7 #### [facility] [address] [address] [address] Marbella Jeffery T3U 38.0 % Normal 30.0-39.0 [facility] Comment on above: Performed By: #### T SH, LIPID, CMP, T7 #### [facility] [address] [address] [address] Marbella Jeffery T4 [Mass/Vol] 13.40 ug/dL Normal 4.80-13.90 [facility] Comment on above: Performed By: #### T SH, LIPID, CMP, T7 #### [facility] [address] [address] [address] Marbella Jeffery LIPID PROFILEon 06-28-2022 CHOL-HDL RATIO NORM SEE BELOW Normal [facility] Comment on above: Result Comment: 3.3 - 4.4 LOW RISK 4.4 - 7.1 AVERAGE RISK 7.1 - 11.0 MODERATE RISK >11.0 HIGH RISK Performed By: #### T SH, LIPID, CMP, T7 #### [facility] [address] [address] [address] Marbella Jeffery Cholesterol [Mass/Vol] 137 mg/dL Normal <=200 [facility] Comment on above: Performed By: #### T SH, LIPID, CMP, T7 #### [facility] [address] [address] [address] Marbella Jeffery Cholesterol in HDL [Mass/Vol] 44 mg/dL Normal 40-60 [facility] Comment on above: Performed By: #### T SH, LIPID, CMP, T7 #### [facility] [address] [address] [address] Marbella Jeffery Cholesterol in LDL [Mass/Vol] 67.2 mg/dL Normal [facility] Comment on above: Performed By: #### T SH, LIPID, CMP, T7 #### [facility] [address] [address] [address] Marbella Jeffery Cholesterol.total/Ch olesterol in HDL [Mass ratio] 3.1 {ratio} Normal [facility] Comment on above: Performed By: #### T SH, LIPID, CMP, T7 #### [facility] [address] [address] [address] Marbella Jeffery HDL NORMAL > or = 60 mg/dl - LOW CARDIOVASCULAR RISK <40 mg/dl - HIGH CARDIOVASCULAR RISK Normal [facility] Comment on above: Performed By: #### T SH, LIPID, CMP, T7 #### [facility] [address] [address] [address] Marbella Jfefery LDL CALC NORMAL SEE BELOW Normal [facility] Comment on above: Result Comment: <100 mg/dl OPTIMAL 100 - 129 mg/dl NEAR OR ABOVE OPTIMAL 130 - 159 mg/dl BORDERLINE HIGH 160 - 189 mg/dl HIGH >190 mg/dl VERY HIGH Performed By: #### T SH, LIPID, CMP, T7 #### [facility] [address] [address] [address] Marbella Jeffery Triglyceride [Mass/Vol] 129 mg/dL Normal <=150 [facility] Comment on above: Performed By: #### T SH, LIPID, CMP, T7 #### [facility] [address] [address] [address] Marbella Jeffery VLDL CALC 25.8 mg/dL Normal [facility] Comment on above: Performed By: #### T SH, LIPID, CMP, T7 #### [facility] [address] [address] [address] Marbella Jeffery PROF 14(COMP METB)on 023 Albumin [Mass/Vol] 3.1 g/dL Critically low 3.4-5.0 [facility] Comment on above: Performed By: #### T SH, LIPID, CMP, T7 #### [facility] [address] [address] [address] Marbella Jeffery Albumin/Globulin [Mass ratio] 0.7 {ratio} Normal [facility] Comment on above: Performed By: #### T SH, LIPID, CMP, T7 #### [facility] [address] [address] [address] Marbella Jeffery ALP [Catalytic activity/Vol] 168 U/L Critically high 46-116 [facility] Comment on above: Performed By: #### T SH, LIPID, CMP, T7 #### [facility] [address] [address] [address] Marbella Jeffery ALT [Catalytic activity/Vol] 14 U/L Normal 14-59 [facility] Comment on above: Performed By: #### T SH, LIPID, CMP, T7 #### [facility] [address] [address] [address] Marbella Jeffery Anion gap [Moles/Vol] 12.8 mmol/L Normal [facility] Comment on above: Performed By: #### T SH, LIPID, CMP, T7 #### [facility] [address] [address] [address] Marbella Jeffery AST [Catalytic activity/Vol] 13 U/L Critically low 15-37 [facility] Comment on above: Performed By: #### T SH, LIPID, CMP, T7 #### [facility] [address] [place] [address] Dr. Marbella Jeffery Bilirubin [Mass/Vol] 0.4 mg/dL Normal 0.2-1.0 [facility] Comment on above: Performed By: #### T SH, LIPID, CMP, T7 #### [facility] [address] [place] [address] Dr. Marbella Jeffery Calcium [Mass/Vol] 9.0 mg/dL Normal 8.5-10.1 [facility] Comment on above: Performed By: #### T SH, LIPID, CMP, T7 #### [facility] [address] [address] [address] Marbella Jeffery Chloride [Moles/Vol] 105 mmol/L Normal 98-107 [facility] Comment on above: Performed By: #### T SH, LIPID, CMP, T7 #### [facility] [address] [place] [address] Dr. Marbella Jeffery CO2 [Moles/Vol] 27.9 mmol/L Normal 21.0-32.0 [facility] Comment on above: Performed By: #### T SH, LIPID, CMP, T7 #### [facility] [address] [address] [address] Marbella Jeffery Creatinine [Mass/Vol] 1.17 mg/dL Critically high 0.55-1.02 [facility] Comment on above: Performed By: #### T SH, LIPID, CMP, T7 #### [facility] [address] [address] [address] Marbella Jeffery EGFR-AF [facility] 56 mL/min/1.73m2 Critically low >=60 [facility] Comment on above: Performed By: #### T SH, LIPID, CMP, T7 #### [facility] [address] [address] [address] Marbella Jeffery EGFR-NON AF [facility] 47 mL/min/1.73m2 Critically low >=60 [facility] Comment on above: Performed By: #### T SH, LIPID, CMP, T7 #### [facility] [address] [place] [address] Dr. Marbella Jeffery Globulin (S) [Mass/Vol] 4.5 g/dL Normal [facility] Comment on above: Performed By: #### T SH, LIPID, CMP, T7 #### [facility] [address] [address] [address] Marbella Jeffery Glucose [Mass/Vol] 105 mg/dL Normal 74-106 [facility] Comment on above: Performed By: #### T SH, LIPID, CMP, T7 #### [facility] [address] [address] [address] Marbella Jeffery Potassium [Moles/Vol] 3.7 mmol/L Normal 3.5-5.1 [facility] Comment on above: Performed By: #### T SH, LIPID, CMP, T7 #### [facility] [address] [address] [address] Marbella Jeffery Protein [Mass/Vol] 7.6 g/dL Normal 6.4-8.2 [facility] Comment on above: Performed By: #### T SH, LIPID, CMP, T7 #### [facility] [address] [address] [address] Marbella Jeffery Sodium [Moles/Vol] 142 mmol/L Normal 136-145 [facility] Comment on above: Performed By: #### T SH, LIPID, CMP, T7 #### [facility] [address] [address] [address] Marbella Jeffery Urea nitrogen [Mass/Vol] 14.0 mg/dL Normal 7.0-18.0 [facility] Comment on above: Performed By: #### T SH, LIPID, CMP, T7 #### [facility] [address] [address] [address] Marbella Jeffery Urea nitrogen/Creatinine [Mass ratio] 12.0 mg/mg Normal [facility] Comment on above: Performed By: #### T SH, LIPID, CMP, T7 #### [facility] [address] [address] [address] Marbella Jeffery TSHon 06-28-2022 TSH Qn m[IU]/L Critically low 0.358-3.740 [facility] Comment on above: Result Comment: TEST REPEATED FOR VERIFICATION Performed By: #### T SH, LIPID, CMP, T7 #### [facility] [address] [address] [address] Marbella Jeffery PROF CHEM 8 (BAS METB)on Anion gap [Moles/Vol] 11.2 mmol/L Normal [facility] Comment on above: Performed By: #### B MP ####[facility] [address] [address]DrNaomi Jeffery Calcium [Mass/Vol] 9.2 mg/dL Normal 8.5-10.1 [facility] Comment on above: Performed By: #### B MP ####[facility] [address] [address]DrNaomi Jeffery Chloride [Moles/Vol] 102 mmol/L Normal 98-107 [facility] Comment on above: Performed By: #### B MP ####[facility] [address] [place] [address]DrNaomi Jeffery CO2 [Moles/Vol] 29.3 mmol/L Normal 21.0-32.0 [facility] Comment on above: Performed By: #### B MP ####[facility] [address] [address]Dr. Marbella Jeffery Creatinine [Mass/Vol] 1.32 mg/dL Critically high 0.55-1.02 [facility] Comment on above: Performed By: #### B MP ####[facility] [address] [address]Dr. Marbella Jeffery EGFR-AF [facility] 49 mL/min/1.73m2 Critically low >=60 [facility] Comment on above: Performed By: #### B MP ####[facility] [address] [place], [place] [address]Dr. Marbella Jeffery EGFR-NON AF [facility] 41 mL/min/1.73m2 Critically low >=60 [facility] Comment on above: Performed By: #### B MP ####[facility] [address] [place], [place] [address]Dr. Marbella Jeffery Glucose [Mass/Vol] 127 mg/dL Critically high 74-106 [facility] Comment on above: Performed By: #### B MP ####[facility] [address] [place], [place] [address]Dr. Marbella Jeffery Potassium [Moles/Vol] 4.5 mmol/L Normal 3.5-5.1 [facility] Comment on above: Performed By: #### B MP ####[facility] [address] [place], [place] [address]Dr. Marbella Jeffery Sodium [Moles/Vol] 138 mmol/L Normal 136-145 [facility] Comment on above: Performed By: #### B MP ####[facility] [address] [place], [place] [address]Dr. Marbella Jeffery Urea nitrogen [Mass/Vol] 20.0 mg/dL Critically high 7.0-18.0 [facility] Comment on above: Performed By: #### B MP ####[facility] [address] [place], [place] [address]Dr. Marbella Jeffery Urea nitrogen/Creatinine [Mass ratio] 15.2 mg/mg Normal [facility] Comment on above: Performed By: #### B ####[facility] [address] [place], [place] [address]Vc. Marbella Jeffery NM STRESS/REST MULTIon 03-15 NM STRESS/REST MULTI Patient: DEEPTHI PANTOJA Exam Date: 03/15/2022 : 1960 Gender:F Ordering : DR YONY GOODE . Admission #: [id number] Family : Order #: [id number] CLICK HERE TO VIEW EXAM RADIOLOGY REPORT [...] Lewis M.D. on 03/16/2022 at 07:23 Normal [facility] CT LUNG CANCER SCREENINGon 1 05-02-2021 CT [...] by: ALEX LEWIS Date: 2022-03-01 08:03 Normal [facility] MRI BRAIN WO W CONon 08-20- 022 [...] by: MICHAEL ELIZONDO Date: 2021-08-20 08:33 Normal [facility] CREATININEon 08-19-2021 Creatinine [Mass/Vol] 1.35 mg/dL Critically high 0.55-1.02 [facility] Comment on above: Performed By: #### C SHILO #### [facility] [address] [place] [address] Dr. Marbella Jeffery EGFR-AF [facility] 48 mL/min/1.73m2 Critically low >=60 [facility] Comment on above: Performed By: #### C SHILO #### [facility] [address] [place] [address] Dr. Marbella Jeffery EGFR-NON AF [facility] 40 mL/min/1.73m2 Critically low >=60 [facility] Comment on above: Performed By: #### C SHILO #### [facility] [address] [place] [address] Dr. Marbella Jeffery Encounters Encounter Date Encounter Type Care Provider Facility Start: 04-12-2023 End: 04-12-2023 ambulatory [facility] Start: 03-14-2023 End: 03-14-2023 ambulatory [facility] Start: 10-31-2022 End: 10-31-2022 ambulatory [facility] Start: 07-19-2022 End: 07-19-[address] [...] HOSPITAL Payers Date Payer Category Payer Medicare [id number] 2017 Unknown [id number] 1961 Medicaid [id number] 1961 Medicare [id number] 1960 Unknown [id number] 2.16.84 [id number] 1960 Unknown [id number] 2.16.84 [id number] 1960 Unknown [id number] 2.16.84 [id number] 1960 Unknown [id number] 2.16.84 [id number] 1960 Unknown [id number] 2.16.84 [id number] 1960 Unknown [id number] 2.16.84 [id number] Unknown Clinical Notes 10-31-2022 to 04-12-2023 Note Date & Type Note Facility 04-12-2023 Note Decrease lisinopril to 10 mg daily, repeat BMP in 1 week in light she is taking Chlorthalidone, lisinopril and aldactone. Hopefully renal function improves and HTN is controlled. [facility] 04-12-2023 Note Patient here for 1 m [...] All other systems reviewed and are negative. [facility] 04-12-2023 Note [facility]TP CARDIOLOGY PROGR ESS NOTE [...] Affect: Mood normal. (more content not included)... [facility] 04-12-2023 Note Hypertension is much improved- but renal function increased therefore decrease lisinopril to 10 mg daily and add hydralazine 25 mg tid. Repeat labs- BMP in 1 week to check renal function RTC 1 month [facility] 04-12-2023 Note Coronary artery dise ase is stable Continue GDMT continue risk factor modifications- heart healthy diet, regular exercise as tolerated and continue all medications. [facility] 03-20-2023 Note At last visit HTN wa [...] to call and update pt. Shona Lawson [employer] Division of Cardiology, [facility] [phone] Pager- [phone] Email- [email or web address] 03-20-2023 Note At last visit HTN [...] to call and update pt. Shona Lawson [employer] Division of Cardiology, [facility] [phone] Pager- [phone] Email- [email or web address] 03-14-2023 Note Will send script for meclizine for S/S of vertigo- pt to f/u with PCP for further evaluation and management [facility] 03-14-2023 Note Will add imdur to me d regime, d/w pt to call office for side effects- headache, hypotension or any concerns and she voiced understanding [facility] 03-14-2023 Note Patient here for 6 m [...] All other systems reviewed and are negative. [facility] 03-14-2023 Note [facility] CARDIOLOGY PROGR ESS NOTE HPI: Deepthi Pantoja is a 62 y.o. female here for 6 mo follow up chest pain, CAD, and hypertension. Says her intermittent chest pain remains unchanged. Denies SOB, LE edema, and palpitations. Had a dizzy spell that lasted 2 days around [place]. Says she feels anxious and jumpy and [...] she gets dizzy. Admits dizzy spell at [place], states that the room starts spinning and [...] echocardiogram and F/ (more content not included)... [facility] 03-14-2023 Note Coronary artery dise ase is stable Continue GDMT- ASA, coreg, zetia, simvastatin, and lisinopril continue risk factor modifications- heart healthy diet, regular exercise as tolerated and continue all medications. [facility] 03-14-2023 Note Hypertension is unco ntrolled and pt states she is taking medications daily- reports she took all meds today Increase lisinopril to 20 mg daily and add imdur 30 mg for HTN and chest pain [facility] 03-14-2023 Note [facility] No concerning sympto ms today Monitor with echocardiogram and F/u assessment of any concerning symptoms [facility] 10-31-2022 Note Stable Monitor with routine echocardiograms [facility] 10-31-2022 Note Lipid abnormalities are stable- will not change any of her meds at this time in light that I don't feel she is taking meds as prescribed r/t turmoil in her life [facility] 10-31-2022 Note Hypertension is unco ntrolled- staff [...] pt to reach out community resources, her voodoo, family and friends for assistance. IF any concerning symptoms she is to call office or 911 and she voiced understanding of red flag symptoms. [facility] 10-31-2022 Note Coronary artery dise ase is currently stable Recent normal stress test in [place] Continue GDMT- ASA, coreg, simvastatin and zetia continue risk factor modifications- heart healthy diet, regular exercise as tolerated and continue all medications. [facility] 10-31-2022 Note EKG today sinus rhyt hm and essentially unchanged from previous, no acute ST or T wave changes noted Most likely r/t emotional/family stress and uncontrolled b/p. [facility] 10-31-2022 Note [facility]TP CARDIOLOGY PROGR ESS NOTE [...] function Mild M (more content not included)... [facility] Summary Purpose Family History No Family History Records FoundNo Family History Records FoundNo Family History Records Found Advance Directives No Advanced Directives Records FoundNo Advanced Directives Records FoundNo Advanced Directives Records Found Additional Source Comments INFORMATION SOURCE (unrecogn ized section and content) DATE CREATED AUTHOR 01/01/[address] [facility] DATE CREATED AUTHOR AUTHOR'S ORGANIZ ATION 07/22/2022 [facility] DATE CREATED AUTHOR AUTHOR'S ORGANIZ ATION 04/22/2023 [facility] FOR RECORDS PERTAINING TO PATIENTS WHO ARE [...] BE BASED ON THE PRIMARY CLINICAL RECORDS. [facility]. provides no warranty or guarantee of the accuracy or completeness of information in this document.
--- NOTE | 2023-05-08 10:19 | US_ITS ---
[address] [address] Patient Name: MYRIAM GARCIA MRN: [id number] date: 1960 Sex: F Assigned Patient Location: Current Patient Location: Accession/Order Number: [id number] Exam Date: 05/08/2023 10:20 Report Date: 05/08/2023 11:13 At the request of: YONY GOODE Procedure: US renal BI EXAMINATION: US renal BI HISTORY: acute kidney failure N17.9 COMPARISON: No relevant comparison available. TECHNIQUE: Ultrasound examination was performed of the bladder. FINDINGS: Right Kidney: Normal in contour. The cortex is thinned measuring 0.8 cm. No solid cortical mass, hydronephrosis or obstructing nephrolithiasis. Diffuse increase in cortical echotexture. Height: 4.6 cm Length: 9.1 cm Width: 4.3 cm Left Kidney: Normal in contour. The cortex is thinned measuring 0.9 cm. No solid cortical mass, hydronephrosis or obstructing nephrolithiasis. Diffuse increase in cortical echotexture Height: 4.3 cm Length: 8.2 cm Width: 3.7 cm The urinary bladder is normal in appearance. Prevoid volume 297 mL. Post void volume 7 mL Ureteral jets visualized bilaterally US/US renal BI IMPRESSION: Bilateral renal cortical atrophy with increased echotexture suggesting medical renal disease Electronically authenticated by: MICHAEL ELIZONDO Date: 05/08/2023 11:13
[2023-05-08 10:48] LABS: Alanine Aminotransferase 18 U/L (14-59); Albumin Globulin Ratio 0.8; Albumin Level 3.3 g/dL (3.4-5.0); Alkaline Phosphatase 130 U/L (46-116); Anion Gap 12.4; Aspartate Amino Transferase 17 U/L (15-37); BUN Creatinine Ratio 9.2; Bilirubin Total 0.3 mg/dL (0.2-1.0); Calcium 8.7 mg/dL (8.5-10.1); Carbon Dioxide 28.3 mmol/L (21.0-32.0); Chloride 102 mmol/L (98-107); Estimated GFR (African America 36 (>=60); Estimated GFR (Non-African Ame 30 (>=60); Globulin 4.1 g/dL; Glucose 89 mg/dL (74-106); Potassium 4.7 mmol/L (3.5-5.1); Sodium 138 mmol/L (136-145); Total Protein 7.4 g/dL (6.4-8.2)
== END 2023-05-08 09:55 | disposition home or self-care (01) ==
LOC: US 09:54
PROVIDERS: PCP Family Medicine; Visit Provider Family Medicine
DX: N17.9 Acute kidney failure, unspecified (principal)
CPT/HCPCS: 36415; 76775; 80053

== ENCOUNTER 2023-05-18 08:15 | Outpatient (OUT) | payer OTHER, SELFPAY ==
--- OUTSIDE RECORDS SUMMARY | 2023-05-18 08:18 | XMS_ITS | CCD ---
Author Name Unknown Address [address] [place] [address] Organization [facility] [place] Care Team Providers Care Insurance Agents Supervisor Name Role Phone PHYSICIAN, DEFAULT Unavailable Unavailable PHYSICIAN, DEFAULT Unavailable Unavailable YONY TEAGUE Unavailable Unavailable PHYSICIAN, DEFAULT Unavailable Unavailable PHYSICIAN, DEFAULT Unavailable Unavailable LUCIAYYONY Unavailable Unavailable HOY ., DR BHAKTA Admitting [...] ., DR HOLLY Attending Unavailable ZIEBER, DR AELX Pal[employer] Unavailable PAY ., DR HOLLY Consulting Unavailable HOY ., DR BHAKTA Admitting Unavailable HOY ., DR BHAKTA Attending Unavailable HOY ., DR BHAKTA Primary Care Unavailable HOY ., DR BHAKTA Consulting Unavailable TODD, DR MICHAEL Turcios Consulting Unavailable HOY ., DR BHAKTA Admitting Unavailable HOY ., DR BHAKTA Attending Unavailable HOY ., DR BHAKTA Primary Care Unavailable HOY ., DR BHAKTA Consulting Unavailable ZIEBER, DR ALEX Pal[employer] Unavailable BRAIN, SHONA Attending Unavailable BRAIN, SHONA Attending Unavailable BRAIN, SHONA Attending Unavailable BRAIN, SHONA Attending Unavailable Allergies Allergy Classification Reported Allergen(s) Allergy Type Date of Onset Reaction(s) Facility (1 source) acetaminophen / propoxyphene; Translations: [Darvocet] Drug Allergy 2 The [facility] Repository (3 sources) Penicillins; Translations: [PENICILLINS] Drug allergy (disorder) 2 [facility]OF [facility] Repository (1 source) Darvocet-N 100 Drug allergy (disorder) 3 [facility] Repository (1 source) PROPOXYPHENE N-ACETAMINOPHEN; Translations: [PROPOXYPHENE N-ACETAMINOPHEN] Propensity to adverse reactions to drug (disorder) 4 [facility] Repository Problems Active Problems Problem Classification Problem Date Documented Date Episodic/Chronic Acute and unspecified renal failure (2 sources) Acute kidney failure, unspecified; Translations: [Acute kidney failure, unspecified] Onset: 05-11-2023 Episodic Chronic kidney disease (2 sources) Chronic kidney disease, unspecified; Translations: [Chronic kidney disease, unspecified] Onset: 05-11-2023 Chronic Chronic obstructive pulmonary disease and bronchiectasis (1 source) Chronic obstructive pulmonary disease, unspecified; Translations: [COPD UNSPECIFIED] Onset: 03-19-2022 Chronic Coronary atherosclerosis and other heart disease (2 sources) 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; Translations: [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] Onset: 03-20-2022 [...] Onset: 03-15-2022 Episodic Other aftercare (1 source) assisted (current) use of aspirin; 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] Onset: 07-20-2022 Episodic Other aftercare (1 source) 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; Translations: [[facility] CURRENT DRUG THERAPY] Onset: 07-20-2022 Episodic Other [...] Name Value Interpretation Reference Range Facility 37on 05-11-2023 37 Referring you to a kidney doctor to help manage your reduced kidney function and uncontrolled HTN F/U with Dr Teague as scheduled- have labs drawn as he requested Call cardiology for any concerns [facility] Office Visiton 05-11-2023 Follow-up visit [id number] Deepthi Pantoja 1960 F Date Provider Department Center 05/11/2023 SHONA SULLIVAN LENY [facility] Family History Problem Relation Age of Onset Heart failure Mother Diabetes Mother Dementia Mother Other Father Family Status - Relation Status Age at Mother Father Level of Service:47724 [place] OFFICE/OUTPATIENT ESTABLISHED MOD MDM 30 MIN [facility] 36on 04-20-2023 36 Okay... I peaked at them. Looks like renal function is back to improving. Yea, let's try to stay in the loop about what's going on. Can even call Zahida's office Rosalie to see what they did if she's confused about things. [facility] 36 Please let her know her kidney function has further worsened along with elevated potassium. Please have her hold lisinopril - will try to resume once her kidney function returns to normal. Stop spironolactone. Increase hydralazine to 50mg TID. Follow-up BMP in 1 week. Follow-up phone call in 1 week for her BP readings. Thanks [facility] Telephoneon 04-20-2023 Telephone [id number] Deepthi Pantoja 1960 Date Provider Department Center 04/20/2023 IVAN TRIVEDI Family History Problem Relation Age of Onset Heart failure Mother Diabetes Mother Dementia Mother Other Father Family Status - Relation Status Age at Mother Father [facility] 37on 04-12-2023 37 Decrease lisinopril to 10 mg daily from 20 mg because of elevated kidney function Start hydralazine 25 mg three times a day [facility] Office Visiton 04-12-2023 Follow-up visit [id number] Deepthi Pantoja 1960 F Date Provider Department Center 04/12/2023 SHONA SULLIVAN Family History Problem Relation Age of Onset Heart failure Mother Diabetes Mother Dementia Mother Other Father Family Status - Relation Status Age at Mother Father Level of Service:55996 [place] OFFICE/OUTPATIENT ESTABLISHED MOD MDM 30 MIN Normal [facility] Documentationon 03-20-2023 Documentation [id number] Deepthi Pantoja 1960 F Date Provider Department Center 03/20/2023 SHONA SULLIVAN LENY [facility] Family History Problem Relation Age of Onset Heart failure Mother Diabetes Mother Dementia Mother Other Father Family Status - Relation Status Age at Mother Father Normal [facility] 37on 03-14-2023 37 Increase lisinopril to 20 [...] Goal b/p is less than 130/80 Normal [facility] Office Visiton 03-14-2023 Follow-up visit [id number] Deepthi Pantoja 1960 F Date Provider Department Center 03/14/2023 SHONA SULLIVAN Family History Problem Relation Age of Onset Heart failure Mother Diabetes Mother Dementia Mother Other Father Family Status - Relation Status Age at Mother Father Level of Service:07443 [place] OFFICE/OUTPATIENT ESTABLISHED MOD MDM 30 MIN Normal [facility] Office Visiton 10-31-2022 Follow-up visit [id number] Deepthi Pantoja 1960 F Date Provider Department Center 10/31/2022 SHONA SULLIVAN Family History Problem Relation Age of Onset Heart failure Mother Diabetes Mother Dementia Mother Other Father Family Status - Relation Status Age at Mother Father Level of Service:30123 [place] OFFICE/OUTPATIENT ESTABLISHED MOD MDM 30-39 MIN Reason for Visit and Comments: Follow-up [819618] - 6 month follow up Normal [facility] GROUP A STREP CULTUREon 05-3 S. pyogenes Ag Ql (Unsp spec) Culture Observations: NEGATIVE FOR GROUP A STREPTOCOCCUS. Normal [facility] Comment on above: Performed By: #### S SUSAN AGARWALTCX ####[facility] [id number] [place] [id number]. Marbella Jeffery STREPT SCREENon 07-19-2022 STREP SCREEN A Negative Normal NEGATIVE [facility] Comment on above: Performed By: #### S STEFANO GRASTCX ####[facility] [address] [place], [place] [address]Nd. Nalinijv Jeffery XR CHEST 2 Von 07-19-2022 XR [...] ALEX LEWIS Date: 2022-07-19 10:18 Normal [facility] CBC AUTO DIFFon 06-28-2022 BASO # 0.1 103/ul Normal 0.0-0.1 [facility] Comment on above: Performed By: #### C BC #### [facility] [address] [address] [address] Marbella Jeffery Basophils/100 WBC (Bld) 0.7 % Normal 0.2-2.0 [facility] Comment on above: Performed By: #### C BC #### [facility] [address] [address] [address] Marbella Jeffery EO # 0.2 103/ul Normal 0.0-0.7 [facility] Comment on above: Performed By: #### C BC #### [facility] [address] [address] [address] Marbella Jeffery Eosinophils/100 WBC (Bld) 1.8 % Normal 0.9-7.0 [facility] Comment on above: Performed By: #### C BC #### [facility] [address] [place] [address] Dr. Marbella Jeffery Erythrocyte distribution width (RBC) [Ratio] 13.5 % Normal 11.0-15.0 [facility] Comment on above: Performed By: #### C BC #### [facility] [address] [place] [address] Dr. Marbella Jeffery Hematocrit (Bld) [Volume fraction] 35.2 % Critically low 36.0-48.0 [facility] Comment on above: Performed By: #### C BC #### [facility] [address] [place] [address] Dr. Marbella Jeffery Hemoglobin (Bld) [Mass/Vol] 11.8 g/dL Critically low 12.0-16.0 [facility] Comment on above: Performed By: #### C BC #### [facility] [address] [place] [address] Dr. Marbella Jeffery IG # 0.02 10e3/ul Normal 0.00-0.03 [facility] Comment on above: Performed By: #### C BC #### [facility] [address] [place] [address] Dr. Marbella Jeffery IG % 0.2 % Normal 0.0-0.5 [facility] Comment on above: Performed By: #### C BC #### [facility] [address] [place] [address] Dr. Marbella Jeffery LYMPH # 2.2 103/ul Normal 1.2-3.8 [facility] Comment on above: Performed By: #### C BC #### [facility] [address] [place] [address] Dr. Marbella Jeffery Lymphocytes/100 WBC (Bld) 25.2 % Normal 20.5-60.0 [facility] Comment on above: Performed By: #### C BC #### [facility] [address] [place] [address] Dr. Marbella Jeffery MANUAL DIFF REQ NO Normal [facility] Comment on above: Performed By: #### C BC #### [facility] [address] [place] [address] Dr. Marbella Jeffery MCH (RBC) [Entitic mass] 30.3 pg Normal 26.7-34.0 [facility] Comment on above: Performed By: #### C BC #### [facility] [address] [place] [address] Dr. Marbella Jeffery MCHC (RBC) [Mass/Vol] 33.5 g/dL Normal 29.9-35.2 [facility] Comment on above: Performed By: #### C BC #### [facility] [address] [place] [address] Dr. Marbella Jeffery MCV (RBC) [Entitic vol] 90.3 fL Normal 81.0-99.0 [facility] Comment on above: Performed By: #### C BC #### [facility] [address] [place] [address] Dr. Marbella Jeffery MONO # 0.8 103/ul Normal 0.3-0.8 [facility] Comment on above: Performed By: #### C BC #### [facility] [address] [place] [address] Dr. Marbella Jeffery Monocytes/100 WBC (Bld) 9.2 % Normal 1.7-12.0 [facility] Comment on above: Performed By: #### C BC #### [facility] [address] [place] [address] Dr. Marbella Jeffery NEUT # 5.5 103/ul Normal 1.4-6.5 [facility] Comment on above: Performed By: #### C BC #### [facility] [address] [place] [address] Dr. Marbella Jeffery Neutrophils/100 WBC (Bld) 62.9 % Normal 43.0-75.0 [facility] Comment on above: Performed By: #### C BC #### [facility] [address] [place] [address] Dr. Marbella Jeffery Platelet mean volume (Bld) [Entitic vol] 11.2 fL Normal 9.5-13.5 [facility] Comment on above: Performed By: #### C BC #### [facility] [address] [address] [address] Marbella Jeffery PLT 203 103/ul Normal 150-450 [facility] Comment on above: Performed By: #### C BC #### [facility] [address] [address] [address] Marbella Jeffery RBC 3.90 106/ul Critically low 4.20-5.40 [facility] Comment on above: Performed By: #### C BC #### [facility] [address] [address] [address] Marbella Jeffery WBC 8.7 103/ul Normal 4.0-11.0 [facility] Comment on above: Performed By: #### C BC #### [facility] [address] [place] [address] Dr. Marbella Jeffery FREE THYROXINE INDEX T7on FTI 5.09 Critically high 1.30-4.50 [facility] Comment on above: Performed By: #### T SH, LIPID, CMP, T7 #### [facility] [address] [place] [address] Dr. Marbella Jeffery T3U 38.0 % Normal 30.0-39.0 [facility] Comment on above: Performed By: #### T SH, LIPID, CMP, T7 #### [facility] [address] [place] [address] Dr. Marbella Jeffery T4 [Mass/Vol] 13.40 ug/dL Normal 4.80-13.90 [facility] Comment on above: Performed By: #### T SH, LIPID, CMP, T7 #### [facility] [address] [place] [address] Dr. Marbella Jeffery LIPID PROFILEon 06-28-2022 CHOL-HDL RATIO NORM SEE BELOW Normal [facility] Comment on above: Result Comment: 3.3 - 4.4 LOW RISK 4.4 - 7.1 AVERAGE RISK 7.1 - 11.0 MODERATE RISK >11.0 HIGH RISK Performed By: #### T SH, LIPID, CMP, T7 #### [facility] [address] [address] [address] Marbella Jeffery Cholesterol [Mass/Vol] 137 mg/dL Normal <=200 [facility] Comment on above: Performed By: #### T SH, LIPID, CMP, T7 #### [facility] [address] [address] [address] Marbella Jeffery Cholesterol in HDL [Mass/Vol] 44 mg/dL Normal 40-60 [facility] Comment on above: Performed By: #### T SH, LIPID, CMP, T7 #### [facility] [address] [address] [address] Marbella Jeffery Cholesterol in LDL [Mass/Vol] 67.2 mg/dL Normal [facility] Comment on above: Performed By: #### T SH, LIPID, CMP, T7 #### [facility] [address] [address] [address] Marbella Jeffery Cholesterol.total/Ch olesterol in HDL [Mass ratio] 3.1 {ratio} Normal [facility] Comment on above: Performed By: #### T SH, LIPID, CMP, T7 #### [facility] [address] [address] [address] Marbella Jeffery HDL NORMAL > or = 60 mg/dl - LOW CARDIOVASCULAR RISK <40 mg/dl - HIGH CARDIOVASCULAR RISK Normal [facility] Comment on above: Performed By: #### T SH, LIPID, CMP, T7 #### [facility] [address] [address] [address] Marbella Jeffery LDL CALC NORMAL SEE BELOW Normal [facility] Comment on above: Result Comment: <100 mg/dl OPTIMAL 100 - 129 mg/dl NEAR OR ABOVE OPTIMAL 130 - 159 mg/dl BORDERLINE HIGH 160 - 189 mg/dl HIGH >190 mg/dl VERY HIGH Performed By: #### T SH, LIPID, CMP, T7 #### [facility] [address] [address] [address] Marbella Jeffery Triglyceride [Mass/Vol] 129 mg/dL Normal <=150 [facility] Comment on above: Performed By: #### T SH, LIPID, CMP, T7 #### [facility] [address] [address] [address] Marbella Jeffery VLDL CALC 25.8 mg/dL Normal [facility] Comment on above: Performed By: #### T SH, LIPID, CMP, T7 #### [facility] [address] [address] [address] Marbella Jeffery PROF 14(COMP METB)on 023 Albumin [Mass/Vol] 3.1 g/dL Critically low 3.4-5.0 [facility] Comment on above: Performed By: #### T SH, LIPID, CMP, T7 #### [facility] [address] [address] [address] Marbella Jeffery Albumin/Globulin [Mass ratio] 0.7 {ratio} Normal [facility] Comment on above: Performed By: #### T SH, LIPID, CMP, T7 #### [facility] [address] [place] [address] Dr. Marbella Jeffery ALP [Catalytic activity/Vol] 168 U/L Critically high 46-116 [facility] Comment on above: Performed By: #### T SH, LIPID, CMP, T7 #### [facility] [address] [address] [address] Marbella Jeffery ALT [Catalytic activity/Vol] 14 U/L Normal 14-59 [facility] Comment on above: Performed By: #### T SH, LIPID, CMP, T7 #### [facility] [address] [address] [address] Marbella Jeffery Anion gap [Moles/Vol] 12.8 mmol/L Normal [facility] Comment on above: Performed By: #### T SH, LIPID, CMP, T7 #### [facility] [address] [address] [address] Marbella Jeffery AST [Catalytic activity/Vol] 13 U/L Critically low 15-37 [facility] Comment on above: Performed By: #### T SH, LIPID, CMP, T7 #### [facility] [address] [address] [address] Marbella Jeffery Bilirubin [Mass/Vol] 0.4 mg/dL Normal 0.2-1.0 [facility] Comment on above: Performed By: #### T SH, LIPID, CMP, T7 #### [facility] [address] [address] [address] Marbella Jeffery Calcium [Mass/Vol] 9.0 mg/dL Normal 8.5-10.1 [facility] Comment on above: Performed By: #### T SH, LIPID, CMP, T7 #### [facility] [address] [address] [address] Marbella Jeffery Chloride [Moles/Vol] 105 mmol/L Normal 98-107 [facility] Comment on above: Performed By: #### T SH, LIPID, CMP, T7 #### [facility] [address] [address] [address] Marbella Jeffery CO2 [Moles/Vol] 27.9 mmol/L Normal 21.0-32.0 [facility] Comment on above: Performed By: #### T SH, LIPID, CMP, T7 #### [facility] [address] [address] [address] Marbella Jeffery Creatinine [Mass/Vol] 1.17 mg/dL Critically high 0.55-1.02 [facility] Comment on above: Performed By: #### T SH, LIPID, CMP, T7 #### [facility] [address] [place] [address] Dr. Marbella Jeffery EGFR-AF BAHAMIAN 56 mL/min/1.73m2 Critically low >=60 [facility] Comment on above: Performed By: #### T SH, LIPID, CMP, T7 #### [facility] [address] [place] [address] Dr. Marbella Jeffery EGFR-NON AF BAHAMIAN 47 mL/min/1.73m2 Critically low >=60 [facility] Comment on above: Performed By: #### T SH, LIPID, CMP, T7 #### [facility] [address] [place] [address] Dr. Marbella Jeffery Globulin (S) [Mass/Vol] 4.5 g/dL Normal [facility] Comment on above: Performed By: #### T SH, LIPID, CMP, T7 #### [facility] [address] [address] [address] Marbella Jeffery Glucose [Mass/Vol] 105 mg/dL Normal 74-106 [facility] Comment on above: Performed By: #### T SH, LIPID, CMP, T7 #### [facility] [address] [address] [address] Marbella Jeffery Potassium [Moles/Vol] 3.7 mmol/L Normal 3.5-5.1 [facility] Comment on above: Performed By: #### T SH, LIPID, CMP, T7 #### [facility] [address] [address] [address] Marbella Jeffery Protein [Mass/Vol] 7.6 g/dL Normal 6.4-8.2 [facility] Comment on above: Performed By: #### T SH, LIPID, CMP, T7 #### [facility] [address] [address] [address] Marbella Jeffery Sodium [Moles/Vol] 142 mmol/L Normal 136-145 [facility] Comment on above: Performed By: #### T SH, LIPID, CMP, T7 #### [facility] [address] [address] [address] Marbella Jeffery Urea nitrogen [Mass/Vol] 14.0 mg/dL Normal 7.0-18.0 [facility] Comment on above: Performed By: #### T SH, LIPID, CMP, T7 #### [facility] [address] [address] [address] Marbella Jeffery Urea nitrogen/Creatinine [Mass ratio] 12.0 mg/mg Normal [facility] Comment on above: Performed By: #### T SH, LIPID, CMP, T7 #### [facility] [address] [address] [address] Marbella Jeffery TSHon 06-28-2022 TSH Qn m[IU]/L Critically low 0.358-3.740 [facility] Comment on above: Result Comment: TEST REPEATED FOR VERIFICATION Performed By: #### T SH, LIPID, CMP, T7 #### [facility] [address] [address] [address] Marbella Jeffery PROF CHEM 8 (BAS METB)on Anion gap [Moles/Vol] 11.2 mmol/L Normal [facility] Comment on above: Performed By: #### B MP ####[facility] [address] [place] [address]Dr. Marbella Jeffery Calcium [Mass/Vol] 9.2 mg/dL Normal 8.5-10.1 [facility] Comment on above: Performed By: #### B MP ####[facility] [address] [place] [address]Dr. Marbella Jeffery Chloride [Moles/Vol] 102 mmol/L Normal 98-107 [facility] Comment on above: Performed By: #### B MP ####[facility] [address] [place], [place] [address]Dr. Marbella Jeffery CO2 [Moles/Vol] 29.3 mmol/L Normal 21.0-32.0 [facility] Comment on above: Performed By: #### B MP ####[facility] [address] [place], [place] [address]Dr. Marbella Jeffery Creatinine [Mass/Vol] 1.32 mg/dL Critically high 0.55-1.02 [facility] Comment on above: Performed By: #### B MP ####[facility] [address] [place], [place] [address]Dr. Marbella Jeffery EGFR-AF BAHAMIAN 49 mL/min/1.73m2 Critically low >=60 [facility] Comment on above: Performed By: #### B MP ####[facility] [address] [address]Dr. Marbella Jeffery EGFR-NON AF BAHAMIAN 41 mL/min/1.73m2 Critically low >=60 [facility] Comment on above: Performed By: #### B MP ####[facility] [address] [place], [place] [address]Dr. Marbella Jeffery Glucose [Mass/Vol] 127 mg/dL Critically high 74-106 [facility] Comment on above: Performed By: #### B MP ####[facility] [address] [place] [id number]. Marbella Jeffery Potassium [Moles/Vol] 4.5 mmol/L Normal 3.5-5.1 [facility] Comment on above: Performed By: #### B MP ####[facility] [address] [place] [id number]. Marbella Jeffery Sodium [Moles/Vol] 138 mmol/L Normal 136-145 [facility] Comment on above: Performed By: #### B MP ####[facility] [address] [place] [id number]. Marbella Jeffery Urea nitrogen [Mass/Vol] 20.0 mg/dL Critically high 7.0-18.0 [facility] Comment on above: Performed By: #### B MP ####[facility] [address] [place] [id number]. Marbella Jeffery Urea nitrogen/Creatinine [Mass ratio] 15.2 mg/mg Normal [facility] Comment on above: Performed By: #### B MP ####[facility] [address] [place] [id number]. Marbella Jeffery NM STRESS/REST MULTIon 03-15 NM STRESS/REST MULTI Patient: DEEPTHI PANTOJA Exam Date: 03/15/2022 : 1960 Gender:F Ordering : DR YONY TEAGUE . Admission #: [id number] Family : Order #: [id number] CLICK HERE TO VIEW EXAM RADIOLOGY REPORT [...] Lewis M.D. on 03/16/2022 at 07:23 Normal [facility] [address] LUNG CANCER SCREENINGon 1 05-02-2021 [...] ALEX LEWIS Date: 2022-03-01 08:03 Normal [facility] MRI BRAIN WO W CONon 022 MRI [...] MICHAEL ELIZONDO Date: 2021-08-20 08:33 Normal [facility] CREATININEon 08-19-2021 Creatinine [Mass/Vol] 1.35 mg/dL Critically high 0.55-1.02 [facility] Comment on above: Performed By: #### C SHILO #### [facility] [address] [address] [address] Marbella Jeffery EGFR-AF BAHAMIAN 48 mL/min/1.73m2 Critically low >=60 [facility] Comment on above: Performed By: #### C SHILO #### [facility] [address] [address] [address] Marbella Jeffery EGFR-NON AF BAHAMIAN 40 mL/min/1.73m2 Critically low >=60 [facility] Comment on above: Performed By: #### C SHILO #### [facility] [address] [address] [address] Marbella Jeffery Encounters Encounter Date Encounter Type Care Provider Facility Start: 05-11-2023 End: 05-11-2023 ambulatory [facility] [place] Start: 04-12-2023 End: 04-12-2023 ambulatory [facility] [place] Start: 03-14-2023 End: 03-14-2023 ambulatory [facility] [place] Start: 10-31-2022 End: 10-31-2022 ambulatory [facility] [place] Start: 07-19-2022 End: 07-19-[address]ONY TEAGUE . Facility:[facility] Start: 06-28-2022 End: 06-29-[address] YONY TEAGUE . Facility:[facility] Start: 03-28-2022 End: 03-29-[address] LAURIE ROB Facility:[facility] Start: 03-15-2022 End: 03-16-[address] YONY TEAGUE . Facility:[facility] Start: 02-28-2022 End: 03-01-[address] YONY TEAGUE . Facility:[facility] Start: 08-19-2021 End: 08-20-[address] YONY TEAGUE . Facility: Start: 12-27-2017 End: 12-28-2017 Patient encounter DEFAULT PHYSICIAN Facility:[facility] Start: 12-03-2017 End: 12-04-2017 Patient encounter DEFAULT PHYSICIAN Facility:[facility] Payers Date Payer Category Payer Medicare [id number] 2017 Unknown [id number] 1961 Medicaid [id number] 1961 Medicare [id number] 1960 Unknown [id number] 2.16.84 [id number] 1960 Unknown [id number] 2.16.84 [id number] 1960 Unknown [id number] 2.16.84 [id number] 1960 Unknown [id number] 2.16.84 [id number] 1958 Unknown [id number] 2.16.84 [id number] 1960 Unknown [id number] 2.16.84 [id number] Unknown Clinical Notes 10-31-2022 to 05-11-2023 Note Date & Type Note Facility 05-11-2023 Note Pt has stopped takin g simvastatin- asked pt to resume taking simvastatin [facility] 05-11-2023 Note Currently is not nicole ing multiple antihypertensive meds- Dr Teague's office states that asked pt to hold lisinopril and has repeat labs next Sunday. I asked pt to resume taking hydralazine, imdur, aldactone. Referral to nephrology sent [facility] 05-11-2023 Note In light of noted AK I on CKD will refer pt to nephrology for further evaluation and management of renal disease and assistance with HTN managemend [facility] 05-11-2023 Note [facility] CARDIOLOGY PROGR ESS NOTE HPI: Deepthi Pantoja is a 63 y.o. female here for HTN fU Patient here for 1 mo follow up hypertension. She had labs and renal duplex on Sunday. She states chest pain has resolved. She denies SOB, palpitations, and lightheadedness/syncope. Patient brought her medication bottles with her to the office today as I requested. She is not taking her thyroid medicine, or simvastatin. She thinks Dr. Teague stopped spironolactone. She states he also told her to stop lisinopril until she has repeats labs next Sunday. Review of Systems Constitutional: Positive for malaise/fatigue. Musculoskeletal: Positive for back pain, joint pain, muscle weakness, myalgias and neck pain. Neurological: Positive for light-headedness. Psychiatric/Behavioral: The patient is nervous/anxious. All other systems reviewed and are negative. Visit Vitals BP 166/72 (BP Location: Left arm, Patient Position: Sitting) Pulse 53 Ht 1.575 m (5' 2 ) Wt 62.6 kg (138 lb) SpO2 99% BMI 25.24 kg/m??? Smoking Status Every Day BSA 1.65 m??? Allergies Allergen Reactions Penicillins Hives Darvocet-N 100 [Propoxyphene N-Acetaminophen] Other Medications: Current Outpatient Medications on File Prior to Visit Medication Sig Dispense Refill aspirin 81 mg EC tablet Take 1 tablet every day by oral route. carvedilol (Coreg) 25 mg tablet Take one tablet BID this replaces metoprolol (Patient taking differently: Take 25 mg by mouth with breakfast and with evening meal.) 180 tablet 3 chlorthalidone (Hygroton) 25 mg [...] by mouth at bedtime. 90 tablet 3 hydrALAZINE (Apresoline) 25 mg tablet Take 1 tablet (25 mg) by mouth in the morning, at noon, and at bedtime. 90 tablet 11 isosorbide mononitrate ER (Imdur) 30 mg 24 hr tablet Take 1 tablet (30 mg) by mouth in the morning. Do not crush or chew. 90 tablet 3 levothyroxine (Synthroid, Levoxyl) 200 mcg tablet Take 200 mcg by mouth before breakfast. pantoprazole (ProtoNix) 40 mg EC tablet Take 40 mg by mouth in the morning. spironolactone (Aldactone) 25 mg tablet Take 1 tablet (25 mg) by mouth in the morning. 90 tablet 3 meclizine (Antivert) 25 mg tablet Take 1 tablet (25 mg) by mouth if needed in the morning, at noon, and at bedtime for dizziness. (Patient not taking: Reported on 05/11/2023) 30 tablet 1 [DISCONTINUED] lisinopril 10 mg tablet Take 1 tablet (10 mg) by mouth in the morning. (Patient not taking: Reported on 05/11/2023) 90 tablet 3 [DISCONTINUED] simvastatin (Zocor) 20 mg tablet Take 1 tablet (20 mg) by mouth at bedtime. (Patient not taking: Reported on 05/11/2023) 90 tablet 3 No current facility-administered medications [...] Thought content normal. Judgment: Judgment normal. Labs: 05/08/23 NA 138, K+ 4.7- Normal BUN 16, CR 1.73 GFR- 30 reduced renal function Liver function normal Last lab values have been reviewed 03/19/23 Increased CR with increasing lisinopril dose. K+ normal 10/31/22 CBC normal BUN 16, CR 1.27- elevated K+ 3.9 normal A1C 5.8 normal Liver function stable Chol 228, Trig 178, LDL 143, HDL 50 Last lab values have been reviewed [facility] Testin03/15/22 Lexiscan stress test- normal perfusion scan EKG portion- inferolateral lead changes and HTN response- without any symptoms voiced 09/21/2020 Cardiac cath/PCI Echo 02/28/2019 Normal LV systolic function (more content not included)... [facility] 05-11-2023 Note Patient here for 1 m o follow up hypertension. She had labs and renal duplex on Sunday. She states chest pain has resolved. She denies SOB, palpitations, and lightheadedness/syncope. Patient brought her medication bottles with her to the office today as I requested. She is not taking her thyroid medicine, or simvastatin. She thinks Dr. Teague stopped spironolactone. She states he also told her to stop lisinopril until she has repeats labs next Sunday. Review of Systems Constitutional: Positive for malaise/fatigue. Musculoskeletal: Positive for back pain, joint pain, muscle weakness, myalgias and neck pain. Neurological: Positive for light-headedness. Psychiatric/Behavioral: The patient is nervous/anxious. All other systems reviewed and are negative. [facility] 04-12-2023 Note Decrease lisinopril to 10 mg daily, repeat BMP in 1 week in light she is taking Chlorthalidone, lisinopril and aldactone. Hopefully renal function improves and HTN is controlled. [facility] 04-12-2023 Note [facility] CARDIOLOGY PROGR ESS NOTE [...] Affect: Mood normal. (more content not included)... [facility] 04-12-2023 Note Patient here for 1 m [...] All other systems reviewed and are negative. [facility] 04-12-2023 Note Hypertension is much improved- but renal function increased therefore decrease lisinopril to 10 mg daily and add hydralazine 25 mg tid. Repeat labs- BMP in 1 week to check renal function RTC 1 month [facility] 04-12-2023 Note Coronary artery dise ase is stable Continue GDMT continue risk factor modifications- heart healthy diet, regular exercise as tolerated and continue all medications. [facility] 03-20-2023 Note At last visit HTN wa [...] to call and update pt. Shona Lawson PRIMARY SUBSTANCE ABUSE COUNSELOR Division of Cardiology, [facility] Ph- [phone] Pager- [phone] Email- [email or web address] 03-20-2023 Note At last visit HTN wa [...] to call and update pt. Shona Lawson PRIMARY SUBSTANCE ABUSE COUNSELOR Division of Cardiology, [facility]- [phone] Pager- [phone] Email- [email or web address] 03-14-2023 Note Will send script for meclizine for S/S of vertigo- pt to f/u with PCP for further evaluation and management [facility] 03-14-2023 Note Will add imdur to me d regime, d/w pt to call office for side effects- headache, hypotension or any concerns and she voiced understanding [facility] 03-14-2023 Note Patient here for 6 m [...] All other systems reviewed and are negative. [facility] 03-14-2023 Note [facility]TP CARDIOLOGY PROGR ESS NOTE [...] echocardiogram and F/ (more content not included)... [facility] 03-14-2023 Note Coronary artery dise ase is stable Continue GDMT- ASA, coreg, zetia, simvastatin, and lisinopril continue risk factor modifications- heart healthy diet, regular exercise as tolerated and continue all medications. [facility] 03-14-2023 Note Hypertension is unco ntrolled and pt states she is taking medications daily- reports she took all meds today Increase lisinopril to 20 mg daily and add imdur 30 mg for HTN and chest pain [facility] 03-14-2023 Note [facility] Note No concerning sympto ms today Monitor with echocardiogram and F/u assessment of any concerning symptoms [facility] 10-31-2022 Note Stable Monitor with routine echocardiograms [facility] 10-31-2022 Note Lipid abnormalities are stable- will not change any of her meds at this time in light that I don't feel she is taking meds as prescribed r/t turmoil in her life [facility] 10-31-2022 Note Hypertension is unco ntrolled- staff [...] pt to reach out community resources, her advent, family and friends for assistance. IF any concerning symptoms she is to call office or 911 and she voiced understanding of red flag symptoms. [facility] 10-31-2022 Note Coronary artery dise ase is currently stable Recent normal stress test in emir Continue GDMT- ASA, coreg, simvastatin and zetia continue risk factor modifications- heart healthy diet, regular exercise as tolerated and continue all medications. [facility] 10-31-2022 Note EKG today sinus rhyt hm and essentially unchanged from previous, no acute ST or T wave changes noted Most likely r/t emotional/family stress and uncontrolled b/p. [facility] 10-31-2022 Note [facility] CARDIOLOGY PROGR ESS NOTE [...] function Mild M (more content not included)... [facility] Summary Purpose Family History No Family History Records FoundNo Family History Records FoundNo Family History Records Found Advance Directives No Advanced Directives Records FoundNo Advanced Directives Records FoundNo Advanced Directives Records Found Additional Source Comments INFORMATION SOURCE (unrecogn ized section and content) DATE CREATED AUTHOR 01/01/2018 [facility] DATE CREATED AUTHOR AUTHOR'S ORGANIZ ATION 07/22/2022 [facility] DATE CREATED AUTHOR AUTHOR'S ORGANIZ ATION 05/13/2023 [facility] FOR RECORDS PERTAINING [...] BE BASED ON THE PRIMARY CLINICAL RECORDS. [employer] [facility]. provides no warranty or guarantee of the accuracy or completeness of information in this document.
[2023-05-18 08:58] LABS: Anion Gap 13.5; BUN Creatinine Ratio 8.5; Calcium 8.5 mg/dL (8.5-10.1); Carbon Dioxide 26.7 mmol/L (21.0-32.0); Chloride 101 mmol/L (98-107); Estimated GFR (African America 25 (>=60); Estimated GFR (Non-African Ame 21 (>=60); Glucose 109 mg/dL (74-106); Potassium 4.2 mmol/L (3.5-5.1); Sodium 137 mmol/L (136-145)
== END 2023-05-18 08:16 | disposition home or self-care (01) ==
LOC: LAB 08:16
PROVIDERS: PCP Family Medicine; Visit Provider Family Medicine
DX: N28.9 Disorder of kidney and ureter, unspecified (principal)
CPT/HCPCS: 36415; 80048

== ENCOUNTER 2023-05-31 09:14 | Outpatient (OUT) | payer OTHER, SELFPAY ==
--- NOTE | 2023-05-31 09:29 | US_ITS ---
The [address] [address] Patient Name: MYRIAM GARCIA MRN: [id number] date: 1960 Sex: F Assigned Patient Location: [place] Current Patient Location: [place] Accession/Order Number: [id number] Exam Date: 05/31/2023 09:30 Report Date: 05/31/2023 10:07 At the request of: YONY GOODE Procedure: US renal bladder US renal bladder, 05/31/2023 9:30 AM EDT INDICATION: Disorder Of Kidney And Ureter N28.9 COMPARISON: Renal ultrasound dated 05/08/2023 FINDINGS: The kidneys measure 8.5 x 3.4 x 3.6 cm on the right and 7.6 x 3.6 x 2.6 cm on the left side. No hydronephrosis is noted. Normal vascularity of kidneys. There is bilateral cortical hyperechogenicity suggesting of medical renal disease The visualized portion of the urinary bladder is unremarkable. Nonspecific ureteral jet is noted. The post void residual measures 8 mL. US/US renal bladder IMPRESSION: Bilateral cortical hyperechogenicity of kidneys suggesting of medical renal disease in appropriate clinical setting. Electronically authenticated by: DENZEL LOFTON Date: 05/31/2023 10:07
[2023-05-31 13:20] LABS: Anion Gap 15.9; BUN Creatinine Ratio 13.3; Calcium 8.8 mg/dL (8.5-10.1); Carbon Dioxide 24.9 mmol/L (21.0-32.0); Chloride 101 mmol/L (98-107); Estimated GFR (African America 33 (>=60); Estimated GFR (Non-African Ame 27 (>=60); Glucose 95 mg/dL (74-106); Potassium 4.8 mmol/L (3.5-5.1); Sodium 137 mmol/L (136-145)
== END 2023-05-31 09:15 | disposition home or self-care (01) ==
LOC: US 09:15
PROVIDERS: PCP Family Medicine; Visit Provider Family Medicine
DX: N28.9 Disorder of kidney and ureter, unspecified (principal)
CPT/HCPCS: 36415; 76770; 80048

== ENCOUNTER 2023-09-25 10:14 | Outpatient (OUT) | payer OTHER, SELFPAY ==
[2023-09-25 11:07] LABS: Hematocrit 38.8 % (36.0-48.0); Hemoglobin 13.1 g/dL (12.0-16.0); Mean Corpuscular HGB Conc 33.8 g/dL (29.9-35.2); Mean Corpuscular Hemoglobin 30.8 pg (26.7-34.0); Mean Corpuscular Volume 91.1 fL (81.0-99.0); Mean Platelet Volume 11.9 fL (9.5-13.5); Platelet Count 215 10^3/uL (150-450); Red Blood Count 4.26 10^6/uL (4.20-5.40); Red Cell Distribution Width 13.7 % (11.0-15.0); White Blood Count 7.7 10^3/uL (4.0-11.0)
[2023-09-25 11:14] LABS: Bilirubin Urine NEGATIVE (NEGATIVE); Blood Urine NEGATIVE (NEGATIVE); Clarity Urine CLEAR (CLEAR); Color Urine LT. YELLOW (YELLOW); Glucose Urine UA NEGATIVE (NEGATIVE); Ketones Urine NEGATIVE (NEGATIVE); Leukocyte Esterase Urine NEGATIVE (NEGATIVE); Nitrite Urine NEGATIVE (NEGATIVE); Protein Urine 30 mg/dL (NEG/TRACE); Specific Gravity Urine 1.025 (1.005-1.025)
[2023-09-25 11:28] LABS: Creatinine Urine Random 138.59 mg/dL (20.00-300.00); Protein Creatinine Ratio Urine 0.39; Total Protein Urine Random 54.6 mg/dL (<=11.9)
[2023-09-25 11:32] LABS: Albumin Level 3.6 g/dL (3.4-5.0); Anion Gap 14.3; BUN Creatinine Ratio 12.5; Calcium 9.2 mg/dL (8.5-10.1); Carbon Dioxide 27.2 mmol/L (21.0-32.0); Chloride 101 mmol/L (98-107); Estimated GFR (African America 37 (>=60); Estimated GFR (Non-African Ame 31 (>=60); Glucose 125 mg/dL (74-106); Magnesium 1.6 mg/dL (1.8-2.4); Phosphorus 3.9 mg/dL (2.6-4.7); Potassium 4.5 mmol/L (3.5-5.1); Sodium 138 mmol/L (136-145); Uric Acid 6.5 mg/dL (2.6-6.0)
[2023-09-25 11:48] LABS: WBC Urine 0-2 #/HPF (NONE SEEN)
[2023-09-25 11:49] LABS: Bacteria Urine TRACE #/HPF (NONE SEEN); Cast Seen? NONE SEEN #/LPF (NONE SEEN); Crystals Seen? None Seen #/HPF (None Seen); Mucus Urine TRACE (NONE SEEN); RBC Urine 0-2 #/HPF (0-2); Squamous Epithelial Cell Urine FEW #/LPF (NONE/RARE); Transitional Epi Cells Urine RARE #/LPF (NONE SEEN); Urine Culture Indicated NO
[2023-09-26 12:19] LABS: PTH, Intact 98 pg/mL (15-65)
[2023-09-26 13:08] LABS: Antinuclear Antibodies, IFA Positive (.)
[2023-09-26 15:12] LABS: Albumin 3.8 g/dL (2.9-4.4); Alpha-1-Globulin 0.3 g/dL (0.0-0.4); Free Kappa Lt Chains,S 54.2 mg/L (3.3-19.4); Free Lambda Lt Chains,S 54.3 mg/L (5.7-26.3); Gamma Globulin 1.4 g/dL (0.4-1.8); Immunoglobulin A, Qn, Serum 332 mg/dL (87-352); Immunoglobulin G, Qn, Serum 1291 mg/dL (586-1602); Immunoglobulin M, Qn, Serum 206 mg/dL (26-217); Protein, Total 7.6 g/dL (6.0-8.5)
[2023-09-26 22:11] LABS: Anti-MPO Antibodies <0.2 units (0.0-0.9); Anti-PR3 Antibodies <0.2 units (0.0-0.9); Cytoplasmic (C-ANCA) <1:20 titer (Neg:<1:20); Perinuclear (P-ANCA) <1:20 titer (Neg:<1:20)
[2023-09-27 14:11] LABS: Immunofixation, Urine Comment: (.)
== END 2023-09-25 10:15 | disposition home or self-care (01) ==
LOC: LAB 10:16
PROVIDERS: PCP Family Medicine; Visit Provider Internal Medicine
DX: I12.9 Hypertensive chronic kidney disease with stage 1 through stage 4 chronic kidney disease, or unspecified chronic kidney disease (principal); N18.30 Chronic kidney disease, stage 3 unspecified; I25.10 Atherosclerotic heart disease of native coronary artery without angina pectoris; N25.81 Secondary hyperparathyroidism of renal origin; E78.5 Hyperlipidemia, unspecified
CPT/HCPCS: 36415; 80069; 81001; 82306; 82570; 82784; 83516; 83521; 83735; 83970; 84155; 84156; 84165; 84166; 84550; 85027; 86037; 86038; 86335

== ENCOUNTER 2023-10-18 07:59 | Outpatient (RCR) | payer OTHER, SELFPAY ==
[2023-10-18 11:51] LABS: Erythrocyte Sedimentation Rate 95 mm/hr (<=30)
[2023-10-18 12:51] LABS: C Reactive Protein 0.71 mg/dL (<=0.50)
[2023-10-19 04:08] LABS: Rheumatoid Factor (RF) 10.3 IU/mL (<14.0)
[2023-10-19 13:08] LABS: Anti-CCP Ab, IgG/IgA 5 units (0-19)
[2023-10-19 15:12] LABS: Albumin 3.9 g/dL (2.9-4.4); Alpha-1-Globulin 0.2 g/dL (0.0-0.4); Free Kappa Lt Chains,S 59.3 mg/L (3.3-19.4); Free Lambda Lt Chains,S 58.1 mg/L (5.7-26.3); Gamma Globulin 1.4 g/dL (0.4-1.8); Immunofixation Result, Serum Comment: (.); Immunoglobulin A, Qn, Serum 340 mg/dL (87-352); Immunoglobulin G, Qn, Serum 1318 mg/dL (586-1602); Immunoglobulin M, Qn, Serum 191 mg/dL (26-217); Kappa/Lambda Ratio,S 1.02 (0.26-1.65); Protein, Total 7.7 g/dL (6.0-8.5)
[2023-10-29 15:08] LABS: HLA B 27 Disease Association Negative (.)
== END 2023-11-10 23:59 | disposition home or self-care (01) ==
LOC: HEMC 07:59
PROVIDERS: PCP Family Medicine; Visit Provider Internal Medicine Hematology & Oncology
DX: E79.0 Hyperuricemia without signs of inflammatory arthritis and tophaceous disease (principal); D47.2 Monoclonal gammopathy; E11.22 Type 2 diabetes mellitus with diabetic chronic kidney disease; I12.9 Hypertensive chronic kidney disease with stage 1 through stage 4 chronic kidney disease, or unspecified chronic kidney disease; N18.30 Chronic kidney disease, stage 3 unspecified; M54.50 Low back pain, unspecified; G62.9 Polyneuropathy, unspecified
CPT/HCPCS: 36415; 81374; 82784; 83521; 84155; 84165; 85652; 86140; 86200; 86431; G0463

== ENCOUNTER 2023-11-09 13:44 | Outpatient (OUT) | payer OTHER, SELFPAY ==
--- NOTE | 2023-11-09 13:48 | XR_ITS ---
[address] [address] Patient Name: MYRIAM GARCIA MRN: [id number] date: 1960 Sex: F Assigned Patient Location: [facility] Current Patient Location: [facility] Accession/Order Number: [id number] Exam Date: 11/09/2023 14:10 Report Date: 11/13/2023 08:10 At the request of: KAILASH NUNEZ Procedure: XR bone survey EXAMINATION: XR bone survey HISTORY: Monoclonal Gammopathy D47.2 COMPARISON: No relevant comparison available. TECHNIQUE: Two lateral projections of the skull. A lateral projection of the C-spine, T-spine and L-spine. Single view of the chest and pelvis. Single view of each humerus, forearm, femur, and tibia-fibula. FINDINGS: SKULL: No well-defined lytic lesion, periosteal reaction/thickening, fracture, or dislocation. C-SPINE: No lytic lesion, periosteal reaction/thickening, fracture, or dislocation. T-SPINE: No lytic lesion, periosteal reaction/thickening, fracture, or dislocation. L-SPINE: No lytic lesion, periosteal reaction/thickening, fracture, or dislocation. L5-S1 disc spacer. CHEST: No expansile lesion, lytic lesion, or fracture. PELVIS: No lytic lesion, periosteal reaction/thickening, fracture, or dislocation. R HUMERUS: No lytic lesion, periosteal reaction/thickening, fracture, or dislocation. R FOREARM: No lytic lesion, periosteal reaction/thickening, fracture, or dislocation. L HUMERUS: No lytic lesion, periosteal reaction/thickening, fracture, or dislocation. L FOREARM: No lytic lesion, periosteal reaction/thickening, fracture, or dislocation. R FEMUR: No lytic lesion, periosteal reaction/thickening, fracture, or dislocation. R TIB/FIB: No lytic lesion, periosteal reaction/thickening, fracture, or dislocation. L FEMUR: No lytic lesion, periosteal reaction/thickening, fracture, or dislocation. L TIB/FIB: No lytic lesion, periosteal reaction/thickening, fracture, or dislocation. SOFT TISSUES: No swelling, nodules, visible mass, or radiopaque foreign body. XR/XR bone survey IMPRESSION: 1. A few small lucencies within the calvarium, but no classic punched-out lesion. 2. No suspicious lesions within the remainder of the visualized skeletal structures. Electronically authenticated by: KWAME RICARDO Date: 11/13/2023 08:10
--- OUTSIDE RECORDS SUMMARY | 2023-11-09 13:56 | XMS_ITS | CCD ---
Author Organization [facility] Care Team Providers Care Senior Cyber Security Analyst Name Role Phone PHYSICIAN, DEFAULT Unavailable Unavailable PHYSICIAN, DEFAULT Unavailable Unavailable YONY TEAGUE Unavailable Unavailable PHYSICIAN, DEFAULT Unavailable Unavailable PHYSICIAN, DEFAULT Unavailable Unavailable YONY TEAGUE Unavailable Unavailable HOY ., DR BHAKTA Admitting [...] Unavailable HOY ., DR BHAKTA Consulting Unavailable [place], DR MICHAEL Turcios Consult[employer] Unavailable HOY ., [...] Allergy Type Date of Onset Reaction(s) Facility Acetaminophen (1 source) Acetaminophen Drug Allergy 4 [facility] Opioid Agonists (1 source) Propoxyphene Drug Allergy 4 [facility] Penicillins (antibiotic) (1 source) Penicillins Drug Allergy 4 [facility] (1 source) acetaminophen / propoxyphene; Translations: [Darvocet] Drug Allergy 2 [facility] (4 sources) Penicillins; Translations: [PENICILLINS] Drug allergy (disorder) 2 AOF, Hives [facility] (1 source) Darvocet-N 100 Drug allergy (disorder) 3 [facility] (1 source) PROPOXYPHENE N-ACETAMINOPHEN; Translations: [PROPOXYPHENE N-ACETAMINOPHEN] Propensity to adverse reactions to drug (disorder) 4 [facility] (1 source) Acetaminophen Drug Allergy 4 [facility] (1 source) Propoxyphene Drug Allergy 4 [facility] Medications Current Medications Medication Drug Class(es) Dates Sig (Normalized) Sig (Original) aspirin 81 mg delayed release oral tablet (2 sources) Platelet Aggregation Inhibitor, Nonsteroidal Anti-inflammatory Drug Start: 08-30-2023 take 81 mg by mouth once daily Aspirin Active 81 MG PO Daily August 30, 2023 12:00am carvedilol 25 mg oral tablet (2 sources) alpha-Adrenergic Carla, beta-Adrenergic Carla Start: 08-30-2023 take 25 mg by mouth twice daily Carvedilol Active 25 MG PO Twice daily August 30, 2023 12:00am chlorthalidone 25 mg oral tablet (2 sources) Thiazide-like Diuretic Start: 08-30-2023 take 25 mg by mouth once daily Chlorthalidone Active 25 MG PO Daily August 30, 2023 12:00am citalopram 20 mg oral tablet (2 sources) Serotonin Reuptake Inhibitor Start: 08-30-2023 take 20 mg by mouth once daily Citalopram Active 20 MG PO Daily August 30, 2023 12:00am ergocalciferol 1.25 mg oral capsule (1 source) Provitamin D2 Compound Start: 10-04-2023 take 1250 ug by mouth every week Ergocalciferol (Vitamin D2) Active 1250 MCG PO every week October 04, 2023 12:00am ezetimibe 10 mg oral tablet (2 sources) Dietary Cholesterol Absorption Inhibitor Start: 08-30-2023 take 10 mg by mouth once daily Ezetimibe Active 10 MG PO Daily August 30, 2023 12:00am 24 hr isosorbide mononitrate 30 mg extended release oral tablet (2 sources) Nitrate Vasodilator Start: 08-30-2023 take 30 mg by mouth once daily Isosorbide Mononitrate Active 30 MG PO Daily August 30, 2023 12:00am levothyroxine sodium 0.175 mg oral tablet (2 sources) l-Thyroxine Start: 08-30-2023 take 175 ug by mouth once daily Levothyroxine Active 175 MCG PO Daily August 30, 2023 12:00am magnesium oxide 400 mg oral tablet (1 source) Start: 10-04-2023 take 400 mg by mouth once daily Magnesium Oxide Active 400 MG PO Daily 90 October 04, 2023 12:00am simvastatin 40 mg oral tablet (2 sources) HMG-CoA Reductase Inhibitor Start: 08-30-2023 take 40 mg by mouth once daily Simvastatin Active 40 MG PO Daily August 30, 2023 12:00am spironolactone 25 mg oral tablet (2 sources) Aldosterone Antagonist Start: 08-30-2023 take 25 mg by mouth once daily Spironolactone Active 25 MG PO Daily August 30, 2023 12:00am Completed/Discontinued Medications Medication Drug Class(es) Dates Sig (Normalized) Sig (Original) diclofenac sodium 75 mg delayed release oral tablet (2 sources) Nonsteroidal Anti-inflammatory Drug Start: 08-30-2023 End: 10-04-2023 take 75 mg by mouth twice daily Diclofenac Sodium Discontinued 75 MG PO Twice daily August 30, 2023 12:00am October 04, 2023 11:12am lisinopril 20 mg oral tablet (2 sources) Angiotensin Converting Enzyme Inhibitor Start: 08-30-2023 End: 08-30-2023 take 20 mg by mouth once daily Lisinopril Discontinued 20 MG PO Daily August 30, 2023 12:00am August 30, 2023 3:59pm Problems Active Problems Problem Classification Problem Date Documented Date Episodic/Chronic Acute and unspecified renal failure (2 sources) Acute kidney failure, unspecified; Translations: [Acute kidney failure, unspecified] Onset: Episodic Chronic kidney disease (7 sources) Chronic kidney disease, unspecified; Translations: [Chronic kidney disease stage 3] Onset: 4 Chronic Chronic obstructive pulmonary disease and bronchiectasis (1 source) Chronic obstructive pulmonary disease, unspecified; Translations: [COPD UNSPECIFIED] Onset: 3 Chronic Coronary atherosclerosis and other heart disease (7 sources) 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; Translations: [Coronary arteriosclerosis] Onset: 3 Chronic Coronary atherosclerosis and other heart disease (1 source) Presence of coronary angioplasty implant and graft; Translations: [PRESENCE COR ANGPLSTY IMPLANT AND GRAFT] Onset: 3 Episodic Diabetes mellitus with complications (1 source) Type 2 diabetes mellitus with diabetic neuropathy, unspecified; Translations: [TYPE 2 DM W/DIABETIC NEUROPATHY UNS] Onset: 3 Chronic Diabetes mellitus without complication (1 source) Type 2 diabetes mellitus without complications; Translations: [TYPE 2 DM WITHOUT COMPLICATIONS] Onset: 3 Chronic Disorders of lipid metabolism (7 sources) Mixed hyperlipidemia; Translations: [Hyperlipidemia] Onset: 3 Chronic Essential hypertension (6 sources) Essential (primary) hypertension; Translations: [ESSENTIAL PRIMARY HYPERTENSION] Onset: 3 Chronic Heart valve disorders (2 sources) Nonrheumatic mitral (valve) insufficiency; Translations: [Nonrheumatic mitral (valve) insufficiency] Onset: 3 Chronic Hypertension with complications and secondary hypertension (5 sources) Chronic kidney disease due to hypertension; Translations: [Hypertensive chronic kidney disease with stage 1 through stage 4 chronic kidney disease, or unspecified chronic kidney disease] 08-30-2023 Chronic Malaise and fatigue (1 source) Chronic fatigue, unspecified; Translations: [CHRONIC FATIGUE UNSPECIFIED] Onset: 3 Chronic Menopausal disorders (1 source) Hormone replacement therapy; Translations: [HORMONE REPLACEMENT THERAPY] Onset: 3 Episodic Multiple sclerosis (5 sources) Multiple sclerosis; Translations: [MULTIPLE SCLEROSIS] Onset: 2 Chronic Neoplasms of unspecified nature or uncertain behavior (2 sources) Monoclonal gammopathy of uncertain significance; Translations: [Monoclonal 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 Nonspecific chest pain (8 sources) Chest pain, unspecified; Translations: [Other chest pain] Onset: 3 Episodic Other aftercare (1 source) retirement (current) use of aspirin; Translations: [FPC CURRENT USE OF ASPIRIN] Onset: 3 Episodic Other aftercare (1 source) 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; Translations: [OTH ANTHROPOMETRIST CURRENT DRUG THERAPY] Onset: 3 Episodic Other diseases of kidney and ureters (2 sources) Secondary hyperparathyroidism; Translations: [Secondary hyperparathyroidism of renal origin] 08-30-2023 Chronic Other diseases of kidney and ureters (3 sources) Secondary hyperparathyroidism of renal origin; Translations: [Secondary hyperparathyroidism (of renal origin)] 08-30-2023 Chronic Other nutritional; endocrine; and metabolic disorders (1 source) Obesity, unspecified; Translations: [OBESITY UNSPECIFIED] Onset: 3 Chronic Other nutritional; endocrine; and metabolic disorders (1 source) Hypomagnesemia; Translations: [Hypomagnesemia] 10-04-2023 Chronic Other nutritional; endocrine; and metabolic disorders (1 source) Hypomagnesemia; Translations: [Disorders of magnesium metabolism] 10-04-2023 Chronic Other nutritional; endocrine; and metabolic disorders (1 source) Body mass index (BMI) 25.0-25.9, adult; Translations: [BODY MASS INDEX BMI 25.0-25.9 ADULT] Onset: 3 Episodic Other nutritional; endocrine; and metabolic disorders (1 source) Hyperuricemia; Translations: [Hyperuricemia without signs of inflammatory arthritis and tophaceous disease] 10-04-2023 Episodic Other nutritional; endocrine; and metabolic disorders (1 source) Hyperuricemia without signs of inflammatory arthritis and tophaceous disease; Translations: [Other abnormal blood chemistry] 10-04-2023 Episodic Other upper respiratory infections (1 source) Acute upper respiratory infection, unspecified; Translations: [ACUTE UP RESPIRATORY INFECTION UNS] Onset: 3 Episodic Residual codes; unclassified (1 source) Acquired absence of other specified parts of digestive tract; Translations: [ACQ ABSENCE OTH PART DIGESTV TRACT] Onset: 3 Episodic Residual codes; unclassified (1 source) Acquired absence of both cervix and uterus; Translations: [ACQUIRED ABSENCE BOTH CERVIX AND UTERUS] Onset: 3 Episodic Substance-related disorders (5 sources) Nicotine dependence, cigarettes, uncomplicated; Translations: [NICOTINE DEPEND CIGARETTES UNCOMP] Onset: 2 Chronic Thyroid disorders (5 sources) Hypothyroidism, unspecified; Translations: [HYPOTHYROIDISM UNSPECIFIED] Onset: 3 Chronic Unclassified (2 sources) COUGH, UNSPECIFIED; Translations: [COUGH, UNSPECIFIED] Onset: 3 Past or Other Problems Problem Classification Problem Date Documented Da te Episodic/Chronic Unclassified (1 source) COUGH, UNSPECIFIED; Translations: [COUGH, UNSPECIFIED] Onset: 07-19-2022 Results Test Name Value Interpretation Reference Range Facility Albumin [Mass/volume] in Ser um or Plasmaon 09-25-2023 Albumin [Mass/Vol] 3.8 g/dL 2.9-4.[address] [facility] Centriole Ab IF (S) [Titer]o n 09-25-2023 Anti-Nuclear Ab Centriole Pattern TNP . [facility] Centromere Ab IF (S) [Titer] on 09-25-2023 Anti-Nuclear Ab Centromere Pattern TNP . [facility] Erythrocyte distribution wid th Auto (RBC) [Ratio]on 09-25-2023 Erythrocyte distribution width (RBC) [Ratio] 13.7 % 11.0-15.0 [facility] Estimated glomerular filtrat ion rate (GFR) non- Americanon 09-25-2023 GFR/1.73 sq M.predicted among non-blacks MDRD (S/P/Bld) [Vol rate/Area] 31 mL/min/{1.73_m2} Low >=60 [facility] Hematocrit Auto (Bld) [Volum e fraction]on 09-25-2023 Hematocrit (Bld) [Volume fraction] 38.8 % 36.0-48.0 [facility] Hemoglobin [Mass/volume] in Bloodon 09-25-2023 Hemoglobin (Bld) [Mass/Vol] 13.1 g/dL 12.0-16.0 [facility] Homogenous nuclear Ab patter n (S) [Titer]on 09-25-2023 Anti-Nuclear Ab Homogeneous Pattern TNP . [facility] IgA [Mass/volume] in Serum o r Plasmaon 09-25-2023 IgA [Mass/Vol] 332 mg/dL 87-352 [facility] IgG [Mass/volume] in Serum o r Plasmaon 09-25-2023 IgG [Mass/Vol] 1291 mg/dL 586-1602 [facility] IgM [Mass/volume] in Serum o r Plasmaon 09-25-2023 IgM [Mass/Vol] 206 mg/dL 26-217 [facility] Immunofixation for Urineon 0 09-25-2023 Interpretation Immunofixation (U) [Interp] Comment: . [facility] Comment on above: Presence of monoclon al protein is unclear at this time. Suggestrepeat in 3 to 6 months if clinically indicated.Performed at: [facility] [address] [id number] Director: Lex Munguia PhD, Phone: [phone] Immunoglobulin light chains. kappa.free [Mass/volume] in Serumon 09-25-2023 Immunoglobulin light chains.kappa.free (S) [Mass/Vol] 54.2 mg/L Abnormal 3.3-19.4 [facility] Immunoglobulin light chains. kappa.free/Immunoglobulin light chains.lambda.free [Rayray 09-25-2023 Immunoglobulin light chains.kappa.free/Immuno globulin light chains.lambda.free (S) [Mass ratio] 1.00 0.26-1.65 [facility] Comment on above: Performed at: [facility] [address] [id number] Director: Lex Munguia PhD, Phone: [phone] Immunoglobulin light chains. lambda.free [Mass/volume] in Serum or Plasmaon 09-25-2023 Immunoglobulin light chains.lambda.free [Mass/Vol] 54.3 mg/L Abnormal 5.7-26.3 [facility] Laboratory - Chemistry and C hemistry - challengeon 09-25-2023 Albumin [Mass/Vol] 3.6 g/dL 3.4-5.[address] [facility] Calcium [Mass/Vol] 9.2 mg/dL 8.5-10.[address] [facility] Chloride [Moles/Vol] 101 mmol/L 98-107 [facility] CO2 [Moles/Vol] 27.2 mmol/L 21.0-32.0 [facility] Creatinine [Mass/Vol] 1.68 mg/dL High 0.55-1.02 [facility] GFR/1.73 sq M.predicted MDRD (S/P/Bld) [Vol rate/Area] 37 mL/min/{1.73_m2} Low >=60 [facility] Glucose [Mass/Vol] 125 mg/dL High 74-[address] [facility] Magnesium [Mass/Vol] 1.6 mg/dL Low 1.8-2.4 [facility] Potassium [Moles/Vol] 4.5 mmol/L 3.5-5.1 [facility] Protein [Mass/Vol] 0.3 g/dL Abnormal Not Observed [facility] Sodium [Moles/Vol] 138 mmol/L 136-[address] [facility] Urate [Mass/Vol] 6.5 mg/dL High 2.6-6.0 [facility] Urea nitrogen [Mass/Vol] 21.0 mg/dL High 7.0-18.0 [facility] Urea nitrogen/Creatinine [Mass ratio] 12.5 mg/mg [facility] Bilirubin Ql (U) Negative NEGATIVE [facility] Glucose (U) [Mass/Vol] Negative NEGATIVE [facility] Ketones Ql (U) Negative NEGATIVE [facility] pH (U) 6.0 [pH] 5.0-9.0 [facility] Specific gravity (U) [Rel density] 1.025 1.005-1.025 [facility] Urobilinogen Qn (U) 1.0 {Samira'U}/dL 0.2-1.0 [facility] Laboratory - Specimen inform ationon 09-25-2023 Appearance (U) CLEAR CLEAR [facility] Color (U) LT. YELLOW YELLOW [facility] Laboratory - Urinalysison Leukocyte esterase Test strip Ql (U) Negative NEGATIVE [facility] Mucus Ql (Urine sed) TRACE Abnormal NONE SEEN [facility] Nitrite Ql (U) Negative NEGATIVE [facility] Protein (U) [Mass/Vol] 54.6 mg/dL High <=11.9 [facility] Protein Ql (U) 30 mg/dL Abnormal NEG/TRACE [facility] Leukocytes [#/volume] correc renato for nucleated erythrocytes in Blood by Automated counon 09-25-2023 WBC corrected for nucl RBC Auto (Bld) [#/Vol] 7.7 10 3/uL 4.0-11.0 [facility] MCH Auto (RBC) [Entitic mass ]on 09-25-2023 MCH (RBC) [Entitic mass] 30.8 pg 26.7-34.0 [facility] MCHC Auto (RBC) [Mass/Vol]on 09-25-2023 MCHC (RBC) [Mass/Vol] 33.8 g/dL 29.9-35.2 [facility] MCV Auto (RBC) [Entitic vol] on 09-25-2023 MCV (RBC) [Entitic vol] 91.1 fL 81.0-99.0 F [facility] Midbody Ab IF (S) [Titer]on 09-25-2023 Anti-Nuclear Ab Midbody Pattern TNP . [facility] Mitotic spindle apparatus Ab IF [Titer]on 09-25-2023 DE Spindle Apparatus Pattern TNP . [facility] Myeloperoxidase Ab [Units/vo lume] in Serum by Immunoassayon 09-25-2023 Myeloperoxidase Ab IA Qn (S) <0.2 units 0.0-0.9 [facility] No Panel Informationon 09-24 25-Hydroxy Vitamin D Total 21.8 ng/mL [facility] Comment on above: <20 ng/mL Vit D defi cient20-<30 ng/mL Vit D [id number] ng/mL Vit D sufficient>100 ng/mL Potential Toxicity Anti-Nuclear Antibody Comment 2 Comment . [facility] Comment on above: Pattern Potential Di sease Association Homogeneous Systemic Lupus Erythematosus, Drug Induced Systemic Lupus Erythematosus, Chronic Autoimmune hepatitis, Juvenile Idiopathic Arthritis Speckled Sjogren Syndrome, Systemic Lupus Erythematosus, Subacute Cutaneous Lupus, Lupus, Congenital Heart Block, Mixed Connective Tissue Disease, Scleroderma-diffuse, Scleroderma-Autoimmune Myositis Overlap Syndrome, Systemic Lupus Tnhinhzuisfmd-Albmrndoqtv-Upqfmzdwmc Myositis Overlap Syndrome, Systemic Autoimmune Rheumatic Disease, Undifferentiated Connective Tissue Disease Nucleolar Systemic Sclerosis, Scleroderma-Autoimmune Myositis Overlap Syndrome, Sjogren Syndrome, Raynaud phenomenon, Pulmonary Arterial Hypertension, Systemic Autoimmune Rheumatic Disease, Cancer Centromere Scleroderma-CREST, Limited Cutaneous SSc, Raynaud's Phenomenon, Primary Biliary Cholangitis Nuclear Dot Primary Biliary Cholangitis Nuclear Primary Biliary Cholangitis, AutoimmuneMembrane Hepatitis/Liver disease, Systemic Autoimmune Rheumatic Disease, Autoimmune Cytopenias, Linear Scleroderma, Antiphospholipid Syndrome Performed at: - [facility] [id number] [place], [place] [id number] Director: Lex Munguia PhD, Phone: [phone] Glenn Kam vitomartir Association Homogeneous Systemic Lupus Erythematosus, Drug Induced Systemic Lupus Erythematosus, Chronic Autoimmune hepatitis, Juvenile Idiopathic Arthritis Speckled Sjogren Syndrome, Systemic Lupus Erythematosus, Subacute Cutaneous Lupus, Lupus, Congenital Heart Block, Mixed Connective Tissue Disease, Scleroderma-diffuse, Scleroderma-Autoimmune Myositis Overlap Syndrome, Systemic Lupus Stgcndvbudqqh-Oorrnqrkrru-Vxwiuwfudj Myositis Overlap Syndrome, Systemic Autoimmune Rheumatic Disease, Undifferentiated Connective Tissue Disease Nucleolar Systemic Sclerosis, Scleroderma-Autoimmune Myositis Overlap Syndrome, Sjogren Syndrome, Raynaud phenomenon, Pulmonary Arterial Hypertension, Systemic Autoimmune Rheumatic Disease, Cancer Centromere Scleroderma-CREST, Limited Cutaneous SSc, Raynaud's Phenomenon, Primary Biliary Cholangitis Nuclear Dot Primary Biliary Cholangitis Nuclear Primary Biliary Cholangitis, AutoimmuneMembrane Hepatitis/Liver disease, Systemic Autoimmune Rheumatic Disease, Autoimmune Cytopenias, Linear Scleroderma, Antiphospholipid Syndrome Performed at: [facility] [address] [id number] Director: Lex Munguia PhD, Phone: [phone] Atypical p-ANCA <1:20 titer Neg:<1:20 [facility] Comment on above: The atypical pANCA p attern has been observed in asignificant percentage of patients with ulcerative colitis,primary sclerosing cholangitis and autoimmune hepatitis.Performed at: [facility] [address] [id number] Director: Sam Tolbert MD, Phone: [phone] at: [facility] [address] [id number] Director: Lex Munguia PhD, Phone: [phone] Parathyroid Hormone (Intact) 98 pg/mL Abnormal 15-65 [facility] Comment on above: Performed at: [facility] [address] [id number] Director: Lex Munguia PhD, Phone: [phone] Perinuclear ANCA (p-ANCA) Antibody <1:20 titer Neg:<1:20 [facility] Comment on above: The presence of posi tive fluorescence exhibiting P-ANCA orC-ANCA patterns alone is not specific for the diagnosis ofWegener's Granulomatosis (WG) or microscopic polyangiitis.Decisions about treatment should not be based solely onANCA IFA results. The International ANCA Group Consensusrecommends follow up testing of positive sera with both VA-3 and MPO-ANCA enzyme immunoassays. As many as 5% serumsamples are positive only by EIA. Ref. AM J Clin [id number];111:507-513. Phosphorus Level 3.9 mg/dL 2.6-4.7 [facility] Protein Electrophoresis Note Comment . [facility] Comment on above: Protein electrophore sis scan will follow via computer,mail, or microphone operator delivery. Urine Bacteria TRACE #/HPF Abnormal NONE SEEN [facility] Urine Culture Reflexed NO [facility] Urine Occult Blood Negative NEGATIVE [facility] Urine Other Casts NONE SEEN #/LPF NONE SEEN [facility] Urine Other Crystals None Seen #/HPF None Seen [facility] Urine Random Creatinine 138.59 mg/dL 20.0 0-300.0 0 [facility] Urine RBC 0-2 #/HPF 0-2 [facility] Urine Squamous Epithelial Cells FEW #/LPF Abnormal NONE/RARE [facility] Urine Transitional Epithelial Cells RARE #/LPF Abnormal NONE SEEN [facility] Urine WBC 0-2 #/HPF Abnormal NONE SEEN [facility] Nuclear Ab (S) [Titer]on Anti-Nuclear Antibody Screen Positive Abnormal . [facility] Comment on above: Negative <1:80 Borde rline 1:80 Positive >1:80 Negative <1:80 Borde rline 1:80 Positive >1:80 Nuclear dots nuclear Ab maggi colette IF (S) [Titer]on 09-25-2023 Anti-Nuclear Ab Nuclear Dot Pattern TNP . [facility] Nuclear membrane pores nucle ar Ab pattern IF (S) [Titer]on 09-25-2023 DE Nuclear Membrane Pattern TNP . [facility] Nucleolar nuclear Ab pattern (S) [Titer]on 09-25-2023 Anti-Nuclear Ab Nucleolar Pattern 1:160 Abnormal . [facility] Comment on above: ICAP nomenclature: A C-8,9,10 ICAP nomenclature: A C-8,9,10 PCNA extractable nuclear Ab IF (S) [Titer]on 09-25-2023 Anti-Nuclear Ab PCNA Pattern TNP . [facility] Platelet mean volume Auto (B ld) [Entitic vol]on 09-25-2023 Platelet mean volume (Bld) [Entitic vol] 11.9 fL 9.5-13.5 [facility] Platelets Auto (Bld) [#/Vol] on 09-25-2023 Platelets (Bld) [#/Vol] 215 10 3/uL 150-450 [facility] Protein [Mass/volume] in Ser um or Plasmaon 09-25-2023 Protein [Mass/Vol] 7.6 g/dL 6.0-8.5 [facility] Proteinase 3 Ab [Units/volum e] in Serum by Immunoassayon 09-25-2023 Proteinase 3 Ab IA Qn (S) <0.2 units 0.0-0.9 [facility] RBC Auto (Bld) [#/Vol]on RBC (Bld) [#/Vol] 4.26 10 6/uL 4.20-5.40 [facility] Serum classic neutrophil cyt oplasmic antibody titer by immunofluorescenceon 09-25-2023 Neutrophil cytoplasmic Ab.classic IF (S) [Titer] <1:20 titer Neg:<1:20 [facility] Serum globulin measurement ( mass/volume)on 09-25-2023 Globulin (S) [Mass/Vol] 3.8 g/dL 2.2-3.9 F [facility] Serum or plasma albumin/glob ulin mass ratioon 09-25-2023 Albumin/Globulin [Mass ratio] 1.1 {ratio} 0.7-1.7 [facility] Serum or plasma alpha 1 glob ulin measurement by electrophoresis (mass/volume)on 09-25-2023 Alpha 1 globulin Elph [Mass/Vol] 0.3 g/dL 0.0-0.4 [facility] Serum or plasma alpha 2 glob ulin measurement by electrophoresis (mass/volume)on 09-25-2023 Alpha 2 globulin Elph [Mass/Vol] 1.0 g/dL 0.4-1.0 [facility] Serum or plasma anion gap de terminationon 09-25-2023 Anion gap [Moles/Vol] 14.3 mmol/L [facility] Serum or plasma beta globuli n measurement by electrophoresis (mass/volume)on 09-25-2023 Beta globulin Elph [Mass/Vol] 1.2 g/dL 0.7-1.3 [facility] Serum or plasma gamma globul in measurement by electrophoresis (mass/volume)on 09-25-2023 Gamma globulin Elph [Mass/Vol] 1.4 g/dL 0.4-1.8 [facility] Serum or plasma immunoelectr ophoresis interpretationon 09-25-2023 Interpretation IEP [Interp] Comment Abnormal . [facility] Comment on above: Immunofixation shows IgG monoclonal protein with lambdalight chain specificity. Speckled nuclear Ab pattern (S) [Titer]on 09-25-2023 Anti-Nuclear Ab Speckled Pattern 1:320 Abnormal . [facility] Comment on above: ICAP nomenclature: A C-2,4,5,29 ICAP nomenclature: A C-2,4,5,29 Urine protein/creatinine rat ioon 09-25-2023 Protein/Creatinine (U) [Ratio] 0.39 [facility] 37on 05-11-2023 37 Referring you to a kidney doctor to help manage your reduced kidney function and uncontrolled HTN F/U with Dr Teague as scheduled- have labs drawn as he requested Call cardiology for any concerns Normal [facility] Office Visiton 05-11-2023 Follow-up visit [id number] Gagandeep Pantoja 1960 F Date Provider Department Center 05/11/2023 SHONA SULLIVAN Family History Problem Relation Age of Onset Heart failure Mother Diabetes Mother Dementia Mother Other Father Family Status - Relation Status Age at Mother Father Level of Service:00087 [place] OFFICE/[place]PATIENT ESTABLISHED MOD MDM 30 MIN [facility] 36on 04-20-2023 36 Okay... I peaked at them. Looks like renal function is back to improving. Yea, let's try to stay in the loop about what's going on. Can even call Zahida's office Sunday to see what they did if she's confused about things. Normal [facility] 36 Please let her know her kidney function has further worsened along with elevated potassium. Please have her hold lisinopril - will try to resume once her kidney function returns to normal. Stop spironolactone. Increase hydralazine to 50mg TID. Follow-up BMP in 1 week. Follow-up phone call in 1 week for her BP readings. Thanks Normal [facility] Telephoneon 04-20-2023 Telephone [id number] [facility] 1960 F Date Provider Department Center 04/20/2023 IVAN TRIVEDI Family History Problem Relation Age of Onset Heart failure Mother Diabetes Mother Dementia Mother Other Father Family Status - Relation Status Age at Mother Father Normal [facility] 37on 04-12-2023 37 Decrease lisinopril to 10 mg daily from 20 mg because of elevated kidney function Start hydralazine 25 mg three times a day Normal [facility] Office Visiton 04-12-2023 Follow-up visit [id number] [facility] 1960 Provider Department Center 04/12/2023 SHONA SULLIVAN Family History Problem Relation Age of Onset Heart failure Mother Diabetes Mother Dementia Mother Other Father Family Status - Relation Status Age at Mother Father Level of Service:85382 [place] OFFICE/OUTPATIENT ESTABLISHED MOD MDM 30 MIN [facility] Documentationon 03-20-2023 Documentation [id number] [facility] 1960 F Provider Department Center 03/20/2023 SHONA SULLIVAN Family History Problem Relation Age of Onset Heart failure Mother Diabetes Mother Dementia Mother Other Father Family Status - Relation Status Age at Mother Father Normal [facility] 37on 03-14-2023 37 Increase lisinopril to [...] Goal b/p is less than 130/80 Normal [facility] Office Visiton 03-14-2023 Follow-up visit [id number] [facility] 1960 F Date Provider Department Center 03/14/2023 SHONA SULLIVAN Family History Problem Relation Age of Onset Heart failure Mother Diabetes Mother Dementia Mother Other Father Family Status - Relation Status Age at Mother Father Level of Service:24423 [place] OFFICE/OUTPATIENT ESTABLISHED MOD MDM 30 MIN Normal [facility] Office Visiton 10-31-2022 Follow-up visit [id number] Gagandeep Pantoja ia 1960 F Date Provider Department Center 10/31/2022 SHONA SULLIVAN CARD [facility] Family History Problem Relation Age of Onset Heart failure Mother Diabetes Mother Dementia Mother Other Father Family Status - Relation Status Age at Mother Father Level of Service:18048 [place] OFFICE/OUTPATIENT ESTABLISHED MOD MDM 30-39 MIN Reason for Visit and Comments: Follow-up [714376] - 6 month follow up Normal [facility] GROUP A STREP CULTUREon 07-10 S. pyogenes Ag Ql (Unsp spec) Culture Observations: NEGATIVE FOR GROUP A STREPTOCOCCUS. Normal [facility] Comment on above: Performed By: #### S SCRFredi GRASTCX ####[facility] [id number] [place] [address]Dr. jv [facility] STREPT SCREENon 07-19-2022 STREP SCREEN A Negative Normal NEGATIVE [facility] Comment on above: Performed By: #### S SCRN GRASTCX ####[facility] [id number] [place] [id number]. Marbella [facility] XR CHEST 2 Von 07-19-2022 XR CHEST 2 V EXAMINATION: XR CHES T 2 V HISTORY: COUGH , congestion COMPARISON: [...] by: ALEX LEWIS Date: 2022-07-19 10:18 Normal [facility] CBC AUTO DIFFon 06-28-2022 BASO # 0.1 103/ul Normal 0.0-0.1 [facility] Comment on above: Performed By: #### C BC #### [facility] [address] [place] [address] Dr. Marbella Jeffery Basophils/100 WBC (Bld) 0.7 % Normal 0.2-2.0 [facility] Comment on above: Performed By: #### C BC #### [facility] [address] [place] [address] Dr. Marbella Jeffery EO # 0.2 103/ul Normal 0.0-0.7 [facility] Comment on above: Performed By: #### C BC #### [facility] [address] [place] [address] Dr. Marbella Jeffery Eosinophils/100 WBC (Bld) 1.8 % Normal 0.9-7.0 [facility] Comment on above: Performed By: #### C BC #### [facility] [address] [place] [address] Dr. Marbella Jeffery Erythrocyte distribution width (RBC) [Ratio] 13.5 % Normal 11.0-15.0 [facility] Comment on above: Performed By: #### C BC #### [facility] [address] [place] [address] Dr. Marbella Jeffery Hematocrit (Bld) [Volume fraction] 35.2 % Critically low 36.0-48.0 [facility] Comment on above: Performed By: #### C BC #### [facility] [address] [place] [address] Dr. Marbella Jeffery Hemoglobin (Bld) [Mass/Vol] 11.8 g/dL Critically low 12.0-16.0 [facility] Comment on above: Performed By: #### C BC #### [facility] [address] [place] [address] Dr. Marbella Jeffery IG # 0.02 10e3/ul Normal 0.00-0.03 [facility] Comment on above: Performed By: #### C BC #### [facility] [address] [place] [address] Dr. Marbella Jeffery IG % 0.2 % Normal 0.0-0.5 [facility] Comment on above: Performed By: #### C BC #### [facility] [address] [address] [address] Marbella Jeffery LYMPH # 2.2 103/ul Normal 1.2-3.8 [facility] Comment on above: Performed By: #### C BC #### [facility] [address] [place] [address] Dr. Marbella Jeffery Lymphocytes/100 WBC (Bld) 25.2 % Normal 20.5-60.0 [facility] Comment on above: Performed By: #### C BC #### [facility] [address] [place] [address] Dr. Marbella Jeffery MANUAL DIFF REQ NO Normal [facility] Comment on above: Performed By: #### C BC #### [facility] [address] [place] [address] Dr. Marbella Jeffery MCH (RBC) [Entitic mass] 30.3 pg Normal 26.7-34.0 [facility] Comment on above: Performed By: #### C BC #### [facility] [address] [place] [address] Dr. Marbella Jeffery MCHC (RBC) [Mass/Vol] 33.5 g/dL Normal 29.9-35.2 [facility] Comment on above: Performed By: #### C BC #### [facility] [address] [place] [address] Dr. Mabrella Jeffery MCV (RBC) [Entitic vol] 90.3 fL Normal 81.0-99.0 [facility] Comment on above: Performed By: #### C BC #### [facility] [address] [place] [address] Dr. Marbella Jeffery MONO # 0.8 103/ul Normal 0.3-0.8 [facility] Comment on above: Performed By: #### C BC #### [facility] [address] [place] [address] Dr. Marbella Jeffery Monocytes/100 WBC (Bld) 9.2 % Normal 1.7-12.0 [facility] Comment on above: Performed By: #### C BC #### [facility] [address] [address] [address] Marbella Jeffery NEUT # 5.5 103/ul Normal 1.4-6.5 [facility] Comment on above: Performed By: #### C BC #### [facility] [address] [address] [address] Marbella Jeffery Neutrophils/100 WBC (Bld) 62.9 % Normal 43.0-75.0 [facility] Comment on above: Performed By: #### C BC #### [facility] [address] [address] [address] Marbella Jeffery Platelet mean volume (Bld) [Entitic vol] 11.2 fL Normal 9.5-13.5 [facility] Comment on above: Performed By: #### C BC #### [facility] [address] [place] [address] Dr. Marbella Jeffery PLT 203 103/ul Normal 150-450 [facility] Comment on above: Performed By: #### C BC #### [facility] [address] [place] [address] Dr. Marbella Jeffery RBC 3.90 106/ul Critically low 4.20-5.40 [facility] Comment on above: Performed By: #### C BC #### [facility] [address] [address] [address] Marbella Jeffery WBC 8.7 103/ul Normal 4.0-11.0 [facility] Comment on above: Performed By: #### C BC #### [facility] [address] [place] [address] Dr. Marbella Jeffery FREE THYROXINE INDEX T7on FTI 5.09 Critically high 1.30-4.50 [facility] Comment on above: Performed By: #### T SH, LIPID, CMP, T7 #### [facility] [address] [place] [address] Dr. Marbella Jeffery T3U 38.0 % Normal 30.0-39.0 [facility] Comment on above: Performed By: #### T SH, LIPID, CMP, T7 #### [facility] [address] [address] [address] Marbella Jeffery T4 [Mass/Vol] 13.40 ug/dL Normal 4.80-13.90 [facility] Comment on above: Performed By: #### T SH, LIPID, CMP, T7 #### [facility] [address] [address] [address] Marbella Jeffery LIPID PROFILEon 06-28-2022 CHOL-HDL RATIO NORM SEE BELOW Normal [facility] Comment on above: Result Comment: 3.3 - 4.4 LOW RISK 4.4 - 7.1 AVERAGE RISK 7.1 - 11.0 MODERATE RISK >11.0 HIGH RISK Performed By: #### T SH, LIPID, CMP, T7 #### [facility] [address] [place] [address] Dr. Marbella Jeffery Cholesterol [Mass/Vol] 137 mg/dL Normal <=200 Th [facility] Comment on above: Performed By: #### T SH, LIPID, CMP, T7 #### [facility] [address] [address] [address] Marbella Jeffery Cholesterol in HDL [Mass/Vol] 44 mg/dL Normal 40-60 [facility] Comment on above: Performed By: #### T SH, LIPID, CMP, T7 #### [facility] [address] [address] [address] Marbella Jeffery Cholesterol in LDL [Mass/Vol] 67.2 mg/dL Normal [facility] Comment on above: Performed By: #### T SH, LIPID, CMP, T7 #### [facility] [address] [address] [address] Marbella Jeffery Cholesterol.total/Choles terol in HDL [Mass ratio] 3.1 {ratio} Normal [facility] Comment on above: Performed By: #### T SH, LIPID, CMP, T7 #### [facility] [address] [address] [address] Marbella Jeffery HDL NORMAL > or = 60 mg/dl - LO W CARDIOVASCULAR RISK <40 mg/dl - HIGH CARDIOVASCULAR RISK Normal [facility] Comment on above: Performed By: #### T SH, LIPID, CMP, T7 #### [facility] [address] [address] [address] Marbella Jeffery LDL CALC NORMAL SEE BELOW Normal [facility] Comment on above: Result Comment: <100 mg/dl OPTIMAL 100 - 129 mg/dl NEAR OR ABOVE OPTIMAL 130 - 159 mg/dl BORDERLINE HIGH 160 - 189 mg/dl HIGH >190 mg/dl VERY HIGH Performed By: #### T SH, LIPID, CMP, T7 #### [facility] [address] [address] [address] Marbella Jeffery Triglyceride [Mass/Vol] 129 mg/dL Normal <=150 [facility] Comment on above: Performed By: #### T SH, LIPID, CMP, T7 #### [facility] [address] [address] [address] Marbella Jeffery VLDL CALC 25.8 mg/dL Normal [facility] Comment on above: Performed By: #### T SH, LIPID, CMP, T7 #### [facility] [address] [place] [address] Dr. Marbella Jeffery PROF 14(COMP METB)on 023 Albumin [Mass/Vol] 3.1 g/dL Critically low 3.4-5.0 Th [facility] Comment on above: Performed By: #### T SH, LIPID, CMP, T7 #### [facility] [address] [place] [address] Dr. Marbella Jeffery Albumin/Globulin [Mass ratio] 0.7 {ratio} Normal [facility] Comment on above: Performed By: #### T SH, LIPID, CMP, T7 #### [facility] [address] [place] [address] Dr. Marbella Jeffery ALP [Catalytic activity/Vol] 168 U/L Critically high 46-116 [facility] Comment on above: Performed By: #### T SH, LIPID, CMP, T7 #### [facility] [address] [place] [address] Dr. Marbella Jeffery ALT [Catalytic activity/Vol] 14 U/L Normal 14-59 [facility] Comment on above: Performed By: #### T SH, LIPID, CMP, T7 #### [facility] [address] [address] [address] Marbella Jeffery Anion gap [Moles/Vol] 12.8 mmol/L Normal Th e [facility] Comment on above: Performed By: #### T SH, LIPID, CMP, T7 #### [facility] [address] [address] [address] Marbella Jeffery AST [Catalytic activity/Vol] 13 U/L Critically low 15-37 [facility] Comment on above: Performed By: #### T SH, LIPID, CMP, T7 #### [facility] [address] [address] [address] Marbella Jeffery Bilirubin [Mass/Vol] 0.4 mg/dL Normal 0.2-1.0 [facility] Comment on above: Performed By: #### T SH, LIPID, CMP, T7 #### [facility] [address] [address] [address] Marbella Jeffery Calcium [Mass/Vol] 9.0 mg/dL Normal 8.5-10.1 [facility] Comment on above: Performed By: #### T SH, LIPID, CMP, T7 #### [facility] [address] [address] [address] Marbella Jeffery Chloride [Moles/Vol] 105 mmol/L Normal 98-107 [facility] Comment on above: Performed By: #### T SH, LIPID, CMP, T7 #### [facility] [address] [address] [address] Marbella Jeffery CO2 [Moles/Vol] 27.9 mmol/L Normal 21.0-32.0 [facility] Comment on above: Performed By: #### T SH, LIPID, CMP, T7 #### [facility] [address] [address] [address] Marbella Jeffery Creatinine [Mass/Vol] 1.17 mg/dL Critically high 0.55-1.02 [facility] Comment on above: Performed By: #### T SH, LIPID, CMP, T7 #### [facility] [address] [address] [address] Marbella Jeffery EGFR-AF [facility] 56 mL/min/1.73m2 Critically low >=60 [facility] Comment on above: Performed By: #### T SH, LIPID, CMP, T7 #### [facility] [address] [place] [address] Dr. Marbella Jeffery EGFR-NON AF [facility] 47 mL/min/1.73m2 Critically low >=60 [facility] Comment on above: Performed By: #### T SH, LIPID, CMP, T7 #### [facility] [address] [place] [address] Dr. Marbella Jeffery Globulin (S) [Mass/Vol] 4.5 g/dL Normal T [facility] Comment on above: Performed By: #### T SH, LIPID, CMP, T7 #### [facility] [address] [place] [address] Dr. Marbella Jeffery Glucose [Mass/Vol] 105 mg/dL Normal 74-106 [facility] Comment on above: Performed By: #### T SH, LIPID, CMP, T7 #### [facility] [address] [place] [address] Dr. Marbella Jeffery Potassium [Moles/Vol] 3.7 mmol/L Normal 3.5-5.1 [facility] Comment on above: Performed By: #### T SH, LIPID, CMP, T7 #### [facility] [address] [place] [address] Dr. Marbella Jeffery Protein [Mass/Vol] 7.6 g/dL Normal 6.4-8.2 [facility] Comment on above: Performed By: #### T SH, LIPID, CMP, T7 #### [facility] [address] [place] [address] Dr. Marbella Jeffery Sodium [Moles/Vol] 142 mmol/L Normal 136-145 [facility] Comment on above: Performed By: #### T SH, LIPID, CMP, T7 #### [facility] [address] [place] [address] Dr. Marbella Jeffery Urea nitrogen [Mass/Vol] 14.0 mg/dL Normal 7.0-18.0 [facility] Comment on above: Performed By: #### T SH, LIPID, CMP, T7 #### [facility] [address] [address] [address] Marbella Jeffery Urea nitrogen/Creatinine [Mass ratio] 12.0 mg/mg Normal [facility] Comment on above: Performed By: #### T SH, LIPID, CMP, T7 #### [facility] [address] [address] [address] Marbella Jeffery TSHon 06-28-2022 TSH Qn m[IU]/L Critically low 0.358-3.740 [facility] Comment on above: Result Comment: TEST REPEATED FOR VERIFICATION Performed By: #### T SH, LIPID, CMP, T7 #### [facility] [address] [address] [address] Marbella Jeffery PROF CHEM 8 (BAS METB)on Anion gap [Moles/Vol] 11.2 mmol/L Normal [facility] Comment on above: Performed By: #### B MP ####[facility] [address] [place] [address]DrNaomi Jeffery Calcium [Mass/Vol] 9.2 mg/dL Normal 8.5-10.1 [facility] Comment on above: Performed By: #### B MP ####[facility] [address] [place] [address]DrNaomi Jeffery Chloride [Moles/Vol] 102 mmol/L Normal 98-107 [facility] Comment on above: Performed By: #### B MP ####[facility] [address] [place] [address]DrNaomi Jeffery CO2 [Moles/Vol] 29.3 mmol/L Normal 21.0-32.0 [facility] Comment on above: Performed By: #### B MP ####[facility] [address] [place] [address]DrNaomi Jeffery Creatinine [Mass/Vol] 1.32 mg/dL Critically high 0.55-1.02 [facility] Comment on above: Performed By: #### B MP ####[facility] [address] [place] [address]DrNaomi Tyson Jose D EGFR-AF [facility] 49 mL/min/1.73m2 Critically low >=60 [facility] Comment on above: Performed By: #### B MP ####[facility] [address] [place] [address]Dr. Marbella Jeffery EGFR-NON AF [facility] 41 mL/min/1.73m2 Critically low >=60 [facility] Comment on above: Performed By: #### B MP ####[facility] [address] [place] [address]Dr. Marbella Jeffery Glucose [Mass/Vol] 127 mg/dL Critically high 74-106 [facility] Comment on above: Performed By: #### B MP ####[facility] [address] [place], [place] [address]Dr. Marbella Jeffery Potassium [Moles/Vol] 4.5 mmol/L Normal 3.5-5.1 [facility] Comment on above: Performed By: #### B MP ####[facility] [address] [place], [place] [address]Dr. Marbella Jeffery Sodium [Moles/Vol] 138 mmol/L Normal 136-145 [facility] Comment on above: Performed By: #### B MP ####[facility] [address] [place], [place] [address]Dr. Marbella Jeffery Urea nitrogen [Mass/Vol] 20.0 mg/dL Critically high 7.0-18 .0 [facility] Comment on above: Performed By: #### B MP ####[facility] [address] [place] [address]Dr. Marbella Jeffery Urea nitrogen/Creatinine [Mass ratio] 15.2 mg/mg Normal [facility] Comment on above: Performed By: #### B MP ####[facility] [address] [place], [place] [address]Dr. Marbella Jeffery NM STRESS/REST MULTIon 03-15 NM STRESS/REST MULTI Patient: DEEPTHI PANTOJA Exam Date: 03/15/2022 : 1960 Gender:F Ordering : DR YONY TEAGUE . Admission #: [id number] Family : Order #: [id number] CLICK HERE TO VIEW EXAM RADIOLOGY REPORT [...] Lewis M.D. on 03/16/2022 at 07:[address] [facility] [address] LUNG CANCER SCREENINGon 1 05-02-2021 [...] by: ALEX LEWIS Date: 2022-03-01 08:03 Normal [facility] MRI BRAIN WO W CONon 022 MRI BRAIN WO W CON EXAMINATION: MRI BRA IN WO W CON HISTORY: Multiple sclerosis , [...] MICHAEL ELIZONDO Date: 2021-08-20 08:33 Normal [facility] CREATININEon 08-19-2021 Creatinine [Mass/Vol] 1.35 mg/dL Critically high 0.55-1.02 [facility] Comment on above: Performed By: #### C SHILO #### [facility] [address] [address] [address] Marbella Jeffery EGFR-AF [facility] 48 mL/min/1.73m2 Critically low >=60 [facility] Comment on above: Performed By: #### C SHILO #### [facility] [address] [address] [address] Marbella Jeffery EGFR-NON AF [facility] 40 mL/min/1.73m2 Critically low >=60 [facility] Comment on above: Performed By: #### C SHILO #### [facility] [address] [address] [address] Marbella Jeffery Vital Signs Date Time Vital Sign Value Performing Clinician Faci lity 10-04-2023 10:43-0400 Body height 157.48 cm [facility] 10-04-2023 10:43-0400 Body mass index (BMI) [Ratio] 26.5 kg/m2 [facility] 10-04-2023 10:43-0400 Body temperature 97.5 [degF] [facility] 10-04-2023 10:43-0400 Body weight 65.82 kg [facility] 10-04-2023 10:43-0400 Diastolic blood pressure 80 mm[Hg] [facility] 10-04-2023 10:43-0400 Heart rate 60 /min [facility] 10-04-2023 10:43-0400 Respiratory rate 16 /min [facility] 10-04-2023 10:43-0400 SaO2% (BldA) [Mass fraction] 97 % [facility] 10-04-2023 10:43-0400 Systolic blood pressure 140 mm[Hg] [facility] 08-30-2023 15:45-0400 Body height 157.48 cm [facility] 08-30-2023 15:45-0400 Body mass index (BMI) [Ratio] 26.2 kg/m2 [facility] 08-30-2023 15:45-0400 Body temperature 97.4 [degF] [facility] 08-30-2023 15:45-0400 Body weight 64.86 kg [facility] 08-30-2023 15:45-0400 Diastolic blood pressure 90 mm[Hg] [facility] 08-30-2023 15:45-0400 Heart rate 73 /min [facility] 08-30-2023 15:45-0400 Respiratory rate 16 /min [facility] 08-30-2023 15:45-0400 SaO2% (BldA) [Mass fraction] 97 % [facility] 08-30-2023 15:45-0400 Systolic blood pressure 204 mm[Hg] [facility] [facility] Encounters Encounter Date Encounter Type Care Provider Facility Start: 10-04-2023 End: 10-04-2023 ambulatory [facility] Work Phone: Start: 10-04-2023 End: 10-04-2023 Patient encounter procedure [facility] Physician [facility] Work Phone: Start: 09-25-2023 Non-patient / [facility]-visit [facility] Work Phone: Start: 08-30-2023 End: 08-30-2023 ambulatory [facility] Work Phone: Start: 08-30-2023 End: 08-30-2023 Patient encounter procedure [facility] Physician [facility] Work Phone: Start: 05-11-2023 End: 05-11-2023 ambulatory [facility] Start: 04-12-2023 End: 04-12-2023 ambulatory [facility] Start: 03-14-2023 End: 03-14-2023 ambulatory [facility] Start: 10-31-2022 End: 10-31-2022 ambulatory SHONA BRAIN [facility] Start: 07-19-2022 End: 07-19-[address] [...] 12-27-2017 End: 12-28-2017 Patient encounter DEFAULT PHYSICIAN Facility:[facility] Start: 12-03-2017 End: 12-04-2017 Patient encounter DEFAULT PHYSICIAN Facility:[facility] Plan of Treatment Date Care Activity Detail Author Immunofixation for Urine F[facility] Renal function 1999 panel - Serum or Plasma [facility] enter Renal function 1999 panel - Serum or Plasma [facility] enter [facility] Payers Date Payer Category Payer Medicare [id number] 2017 Unknown [id number] 1961 Medicaid [id number] 1961 Medicare [id number] 1960 Unknown [id number] 2.16.84 [id number] 1960 Unknown [id number] 2.16.84 [id number] 1960 Unknown [id number] 2.16.84 [id number] 1960 Unknown [id number] 2.16.84 [id number] 1960 Unknown [id number] 2.16.84 [id number] 1960 Unknown [id number] 2.16.84 [id number] Medicare Medicare [id number] Unknown Social History Date Type Detail Facility Start: 08-30-2023 Tobacco smoking stat us NHIS Smoker (finding) [facility] Start: 1960 Sex Assigned At Female F [facility] Clinical Notes 10-31-2022 to 05-11-2023 Note Date & Type Note Facility 05-11-2023 Note Pt has stopped takin g simvastatin- asked pt to resume taking simvastatin [facility] 05-11-2023 Note Currently is not nicole ing multiple antihypertensive meds- Dr Teague's office states that asked pt to hold lisinopril and has repeat labs next Sunday. I asked pt to resume taking hydralazine, imdur, aldactone. Referral to nephrology sent [facility] 05-11-2023 Note In light of noted AK I on CKD will refer pt to nephrology for further evaluation and management of renal disease and assistance with HTN managemend [facility] 05-11-2023 Note UTP CARDIOLOGY PROGR ESS NOTE [...] LV systolic function (more content not included)... [facility] 05-11-2023 Note Patient here for 1 m [...] All other systems reviewed and are negative. [facility] 04-12-2023 Note Decrease lisinopril to 10 mg daily, repeat BMP in 1 week in light she is taking Chlorthalidone, lisinopril and aldactone. Hopefully renal function improves and HTN is controlled. [facility] 04-12-2023 Note UTP CARDIOLOGY PROGR ESS [...] Affect: Mood normal. (more content not included)... [facility] 04-12-2023 Note Patient here for 1 [...] All other systems reviewed and are negative. [facility] 04-12-2023 Note Hypertension is much improved- but renal function increased therefore decrease lisinopril to 10 mg daily and add hydralazine 25 mg tid. Repeat labs- BMP in 1 week to check renal function RTC 1 month [facility] 04-12-2023 Note Coronary artery dise ase is stable Continue GDMT continue risk factor modifications- heart healthy diet, regular exercise as tolerated and continue all medications. [facility] 03-20-2023 Note At last visit HTN [...] to call and update pt. Shona Lawson [employer] Division of Cardiology, [facility]- [phone] Pager- [phone] Email- [email or web address] 03-20-2023 Note At last visit HTN [...] to call and update pt. Shona Lawson [employer] Division of Cardiology, [facility]- [phone] Pager- [phone] Email- [email or web address] 03-14-2023 Note Will send script for meclizine for S/S of vertigo- pt to f/u with PCP for further evaluation and management [facility] 03-14-2023 Note Will add imdur to me d regime, d/w pt to call office for side effects- headache, hypotension or any concerns and she voiced understanding [facility] 03-14-2023 Note Patient here for 6 m o follow up chest pain, CAD, and hypertension. Says her intermittent chest pain remains unchanged. Denies SOB, LE edema, and palpitations. Had a dizzy spell that lasted 2 days around [place]. Says she feels anxious and jumpy and she isn't sure why. Review of Systems Constitutional: Positive for malaise/fatigue and weight loss (18# since 10/31/2022). Cardiovascular: Positive for chest pain (intermittent, unchanged). Musculoskeletal: Positive for back pain, joint pain, muscle weakness, myalgias and neck pain. Neurological: Positive for light-headedness. Psychiatric/Behavioral: The patient is nervous/anxious. All other systems reviewed and are negative. [facility] 03-14-2023 Note UTP CARDIOLOGY PROGR ESS [...] echocardiogram and F/ (more content not included)... [facility] 03-14-2023 Note Coronary artery dise ase is stable Continue GDMT- ASA, coreg, zetia, simvastatin, and lisinopril continue risk factor modifications- heart healthy diet, regular exercise as tolerated and continue all medications. [facility] 03-14-2023 Note Hypertension is unco ntrolled and pt states she is taking medications daily- reports she took all meds today Increase lisinopril to 20 mg daily and add imdur 30 mg for HTN and chest pain [facility] 03-14-2023 Note [facility] Note No concerning sympto ms today Monitor with echocardiogram and F/u assessment of any concerning symptoms [facility] 10-31-2022 Note Stable Monitor with routine echocardiograms [facility] 10-31-2022 Note Lipid abnormalities are stable- will not change any of her meds at this time in light that I don't feel she is taking meds as prescribed r/t turmoil in her life [facility] 10-31-2022 Note Hypertension is unco ntrolled- [...] pt to reach out community resources, her anabaptist, family and friends for assistance. IF any concerning symptoms she is to call office or 911 and she voiced understanding of red flag symptoms. [facility] 10-31-2022 Note Coronary artery dise ase is currently stable Recent normal stress test in emir Continue GDMT- ASA, coreg, simvastatin and zetia continue risk factor modifications- heart healthy diet, regular exercise as tolerated and continue all medications. [facility] 10-31-2022 Note EKG today sinus rhyt hm and essentially unchanged from previous, no acute ST or T wave changes noted Most likely r/t emotional/family stress and uncontrolled b/p. [facility] 10-31-2022 Note UTP CARDIOLOGY PROGR ESS [...] function Mild M (more content not included)... [facility] Evaluation note Diagnosis Onset Date CAD (coronary artery disease) acute CKD (chronic kidney disease) stage 3, GFR 30-59 ml/min acute Hyperlipidemia acute [id number] acute Secondary hyperparathyroidism acute [facility] Work Phone: Evaluation note* Diagnosis Onset Date Resolution Status CAD (coronary artery disease) acute CKD (chronic kidney disease) stage 3, GFR 30-59 ml/min acute Hyperlipidemia acute [id number] acute Secondary hyperparathyroidism acute CAD (coronary artery disease) acute CKD (chronic kidney disease) stage 3, GFR 30-59 ml/min acute Hyperlipidemia acute [id number] acute Hyperuricemia acute Hypomagnesemia acute MGUS (monoclonal gammopathy of unknown significance) acute Secondary hyperparathyroidism acute [facility] Work Phone: Summary Purpose Family History No Family History Records FoundNo Family History Records FoundNo Family History Records Found Advance Directives Advance Directive Response Recorded Date/ Time Advance Directives No July 04, 024 9:29am Chief Complaint and Reason for Visit Chief Complaint RENAL CKD / RENAL FA ILURE Reason for Visit CAD (coronary artery disease) CKD (chronic kidney disease) stage 3, GFR 30-59 ml/min Hyperlipidemia [id number] Secondary hyperparathyroidism Chief Complaint RENAL CKD / RENAL FA ILURE 6 week follow up Reason for Visit CAD (coronary artery disease) CKD (chronic kidney disease) stage 3, GFR 30-59 ml/min Hyperlipidemia [id number] Secondary hyperparathyroidism CAD (coronary artery disease) CKD (chronic kidney disease) stage 3, GFR 30-59 ml/min Hyperlipidemia [id number] Hyperuricemia Hypomagnesemia MGUS (monoclonal gammopathy of unknown significance) Secondary hyperparathyroidism Additional Source Comments INFORMATION SOURCE (unrecogn ized section and content) DATE CREATED AUTHOR 01/01/2018 [facility] DATE CREATED AUTHOR AUTHOR'S ORGANIZ ATION 07/22/2022 [facility] DATE CREATED AUTHOR AUTHOR'S ORGANIZ ATION 05/13/2023 [facility] Care Teams (unrecognized sec tion and content) Team Status: Active Member Role Status Dates Yony Teague MD Primary Care Provider Active Team Status: Inactive Member Role Status Dates Kerwin Andrade MD Attending Provider Active Start : August 30, 2023 End: August 30, 2023 Yony Teague MD Primary Care Provider Active Start: August 30, 2023 End: August 30, 2023 Team Status: Active Member Role Status Dates Yony Teague MD Primary Care Provider Active Start: September 25, 2023 Kerwin Andrade MD Attending Provider Active Start : September 25, 2023 Team Status: Inactive Member Role Status Dates Yony Teague MD Primary Care Provider Active Start: October 04, 2023 End: October 04, 2023 Kerwin Andrade MD Attending Provider Active Start : October 04, 2023 End: October 04, 2023 Goals (unrecognized section and content) Goals may be documented in a n alternate sectionGoals may be documented in an alternate section FOR RECORDS PERTAINING TO PATIENTS WHO ARE [...] BE BASED ON THE PRIMARY CLINICAL RECORDS. [facility]. provides no warranty or guarantee of the accuracy or completeness of information in this document.
== END 2023-11-09 13:45 | disposition home or self-care (01) ==
LOC: RAD 13:45
PROVIDERS: PCP Family Medicine; Visit Provider Internal Medicine Hematology & Oncology
DX: E79.0 Hyperuricemia without signs of inflammatory arthritis and tophaceous disease (principal); D47.2 Monoclonal gammopathy
CPT/HCPCS: 77075

== ENCOUNTER 2023-11-13 07:16 | Outpatient (RCR) | payer OTHER, SELFPAY | END 2023-12-10 23:59 | disposition home or self-care (01) | LOC: HEMC 07:16 | PROVIDERS: PCP Family Medicine; Visit Provider Internal Medicine Hematology & Oncology | DX: E79.0 Hyperuricemia without signs of inflammatory arthritis and tophaceous disease (principal); D47.2 Monoclonal gammopathy; F17.210 Nicotine dependence, cigarettes, uncomplicated; I12.9 Hypertensive chronic kidney disease with stage 1 through stage 4 chronic kidney disease, or unspecified chronic kidney disease; N18.30 Chronic kidney disease, stage 3 unspecified; M54.50 Low back pain, unspecified | CPT/HCPCS: G0463 ==

== ENCOUNTER 2023-12-13 09:05 | Outpatient (OUT) | payer OTHER, SELFPAY ==
--- NOTE | 2023-12-13 09:08 | CA_ITS ---
Patient Name: MYRIAM GARCIA MR#: [id number] : 1960 Exam Date: 12/13/2023 Ordering Doctor: DR LAURIE ROB M.D. ECHOCARDIOGRAM REPORT PROCEDURE: CA ECHO DOPPLER COMPLETE INDICATIONS: Mitral valve regurgitation COMPARISON: None. DESCRIPTION: COMPLETE ECHOCARDIOGRAM Real-time transthoracic echocardiography with 2D, M-mode, spectral and color flow Doppler performed. QUALITY: Technical quality was good. LEFT VENTRICLE: Normal chamber size. Moderate concentric left ventricular hypertrophy. Global left ventricular systolic function is normal. LV EF: Visual estimation of left ventricular ejection fraction is 65-70% DIASTOLIC: Grade I diastolic dysfunction. ATRIAL SEPTUM: LEFT ATRIUM: Normal chamber size. RIGHT ATRIUM: Normal chamber size. RIGHT VENTRICLE: Normal chamber size. Normal right ventricular systolic function. TRICUSPID VALVE: Normal mobility and thickness. No stenosis with trivial regurgitation. No evidence of pulmonary hypertension. RVSP 31 mmHg MITRAL VALVE: Normal mobility and thickness. No evidence of mitral valve stenosis. There is no mitral annular calcification. Trivial mitral regurgitation. AORTIC VALVE: Normal trileaflet appearance. No visible sclerosis. Normal leaflet mobility. No evidence of aortic valve stenosis. No aortic regurgitation. AORTIC ROOT: Normal diameter and appearance. PULMONIC VALVE: Normal thickness and mobility. No stenosis. Trivial regurgitation. PERICARDIUM: No evidence of pericardial effusion. IVC: Collapses with inspirations. Normal size. PLEURA: CONCLUSION: 1. Moderate concentric left ventricular hypertrophy with normal systolic function. LVEF is estimated at 65 to 70%. 2. Normal right ventricular size and systolic function. 3. Mild diastolic dysfunction. 4. Normal left atrial size. 5. No significant valvular dysfunction. 6. Normal right-sided pressures. Adult Echocardiography Procedure Report Left Ventricle LVEDD (3.7 - 5.6 cm): 3.76 cm LVESD (2.2 - 4.0 cm): 2.48 cm LVIVS thickness (0.6 - 1.2 cm): 1.49 cm LVPW thickness (0.5 - 1.0 cm): 1.23 cm e': 0.04 m/s E - e': 12.89 LVOT Max Gradient: 2.18 mm[Hg] LVOT Area (cm2): 0.74 m/s Peak Velocity (LVOT): 0.74 m/s Mean Velocity (LVOT): 0.50 m/s LVOT Diameter 1.64 cm Left Ventricular Ejection Fraction: 65-70 % Left Atrium LA Volume Index (2D A2C): 33.40 ml/m2 Left Atrium Systolic Dimension: 3.67 cm Mitral Valve MV E to A Ratio: 0.70, 0.63 Mitral Valve A-Wave Peak Velocity: 0.72 m/s Mitral Valve E-Wave Peak Velocity: 0.47 m/s Right Ventricle RV Internal Diastolic Dimension: 2.54 cm Aorta AO Root Diam: 2.58 cm Ascending Ao Diam: 2.75 cm Aortic Valve AoV Area (Peak Ajay): 1.21 cm2, 1.21 cm2 AoV Area (VTI): 1.33 cm2, 1.33 cm2 Peak Velocity(Antegrade Flow): 1.28 m/s Peak Gradient(Antegrade Flow): 6.56 mm[Hg] Mean Velocity(Antegrade Flow): 0.82 m/s Mean Gradient(Antegrade Flow): 3.13 mm[Hg] Velocity Time Integral: 28.56 cm Tricuspid Valve Peak Velocity (Regurgitant Flow): 2.53 m/s, 2.08 m/s, 2.67 m/s Pulmonic Valve Mean Gradient: 1.97 mm[Hg], 2.31 mm[Hg] Mean Velocity: 0.65 m/s, 0.71 m/s Peak Velocity: 0.98 m/s Peak Gradient: 3.50 mm[Hg], 4.20 mm[Hg] Right Atrium Right Atrium Systolic Pressure: 23.51 ml, 23.51 ml Dictated by: Graeme Storey M.D. on 12/13/2023 at 17:55 Approved by: Graeme Storey M.D. on 12/13/2023 at 18:01
--- OUTSIDE RECORDS SUMMARY | 2023-12-13 09:27 | XMS_ITS | CCD ---
Author Organization [facility] CliniSyri Care Team Providers Care Dissolver Operator Name Role Phone PHYSICIAN, DEFAULT Unavailable Unavailable [...] Unavailable HOY ., DR BHAKTA Consulting Unavailable CALVIN, DR MICHAEL Turcios Consulting Unavailable HOY ., DR BHAKTA Admitting Unavailable HOY ., DR BHAKTA Attending Unavailable HOY ., DR BHAKTA Primary Care Unavailable HOY ., DR BHAKTA Consulting Unavailable ZIEBER, DR ALEX Palma Consulting Unavailable BRAINSOHNA Hoang Attending Unavailable BRAINSHONA Attending Unavailable BRAINSHONA Hoang Attending Unavailable ELTAHAWY, LAURIE Attending Unavailable Allergies Allergy Classification Reported Allergen(s) Allergy Type Date of Onset Reaction(s) Facility Acetaminophen (1 source) Acetaminophen Drug Allergy 4 [facility] Opioid Agonists (1 source) Propoxyphene Drug Allergy 4 [facility] Penicillins (antibiotic) (1 source) Penicillins Drug Allergy 4 Hives [facility] (1 source) acetaminophen / propoxyphene; Translations: [Darvocet] Drug Allergy 2 [facility] Repository (4 sources) Penicillins; Translations: [PENICILLINS] Drug allergy (disorder) 2 [facility], Hives [facility] Rep[facility] (1 source) Darvocet-N 100 Drug allergy (disorder) 3 [facility] Repository (1 source) Acetaminophen Drug Allergy 4 [facility] (1 source) Propoxyphene Drug Allergy 4 [facility] (1 source) PROPOXYPHENE N-ACETAMINOPHEN; Translations: [PROPOXYPHENE N-ACETAMINOPHEN] Propensity to adverse reactions to drug (disorder) 4 [facility] Repository Medications Current Medications Medication Drug Class(es) Dates [...] Classification Problem Date Documented Date Episodic/Chronic Chronic kidney disease (7 sources) Chronic kidney disease stage 3; Translations: [Stage 3 chronic kidney disease] Onset: 08-30-2023 Chronic Chronic obstructive pulmonary disease and bronchiectasis (1 source) Chronic obstructive pulmonary disease, unspecified; Translations: [COPD UNSPECIFIED] Onset: 3 Chronic Coronary atherosclerosis and other heart disease (7 sources) Coronary arteriosclerosis; Translations: [Atherosclerotic heart disease of crow coronary artery without angina pectoris] Onset: 3 08-30-2023 Chronic Coronary atherosclerosis and other heart disease [...] Chronic Disorders of lipid metabolism (7 sources) Hyperlipidemia; Translations: [Hyperlipidemia, unspecified] Onset: 3 08-30-2023 Chronic Essential hypertension (6 sources) Essential (primary) [...] uncertain significance; Translations: [Monoclonal 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 Other aftercare (1 source) 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; 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] Onset: 3 Episodic Other aftercare (1 source) Other prison (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; Translations: [OTH HALF-WAY CURRENT DRUG THERAPY] Onset: 3 Episodic Other [...] Classification Problem Date Documented Da te Episodic/Chronic Acute and unspecified renal failure (2 sources) Acute kidney failure, unspecified; Translations: [Acute kidney failure, unspecified] Onset: 05-11-2023 Episodic Nonspecific chest pain (6 sources) Chest pain, unspecified; Translations: [Other chest pain] Onset: 03-15-2022 Episodic Unclassified (1 source) COUGH, UNSPECIFIED; Translations: [COUGH, UNSPECIFIED] Onset: 07-19-2022 Results Test Name Value Interpretation Reference Range Facility Office Visiton 12-03-2023 Follow-up visit [id number] Gagandeep Pantoja 1960 F Date Provider Department Center 12/03/2023 Don-LAURIE ROB [facility] Family History Problem Relation Age of Onset Heart failure Mother Diabetes Mother Dementia Mother Other Father Family Status - Relation Status Age at Mother Father Level of Service:77655 MT OFFICE/OUTPATIENT ESTABLISHED MOD MDM 30 MIN Normal [facility] Albumin [Mass/volume] in Ser um or Plasmaon 09-25-2023 Albumin [Mass/Vol] 3.8 g/dL 2.9-4.4 [facility] Centriole Ab IF (S) [Titer]o n 09-25-2023 Anti-Nuclear Ab Centriole Pattern TN . [facility] Centromere Ab IF (S) [Titer] on 09-25-2023 Anti-Nuclear Ab Centromere Pattern TN . [facility] Erythrocyte distribution wid th Auto (RBC) [Ratio]on 09-25-2023 Erythrocyte distribution width (RBC) [Ratio] 13.7 % 11.0-15.0 [facility] Estimated glomerular filtrat ion rate (GFR) non- Americanon 09-25-2023 GFR/1.73 sq M.predicted among non-blacks MDRD (S/P/Bld) [Vol rate/Area] 31 mL/min/{1.73_m2} Low >=60 [facility] Hematocrit Auto (Bld) [Volum e fraction]on 09-25-2023 Hematocrit (Bld) [Volume fraction] 38.8 % 36.0-48.0 [facility] Hemoglobin [Mass/volume] in Bloodon 09-25-2023 Hemoglobin (Bld) [Mass/Vol] 13.1 g/dL 12.0-16.0 [facility] Homogenous nuclear Ab patter n (S) [Titer]on 09-25-2023 Anti-Nuclear Ab Homogeneous Pattern TNP . [facility] IgA [Mass/volume] in Serum o r Plasmaon 09-25-2023 IgA [Mass/Vol] 332 mg/dL 87-352 [facility] IgG [Mass/volume] in Serum o r Plasmaon 09-25-2023 IgG [Mass/Vol] 1291 mg/dL [phone] [facility] IgM [Mass/volume] in Serum o r Plasmaon 09-25-2023 IgM [Mass/Vol] 206 mg/dL 26-217 [facility] Immunofixation for Urineon 0 09-25-2023 Interpretation Immunofixation (U) [Interp] Comment: . [facility] Comment on above: Presence of monoclon al protein is unclear at this time. Suggestrepeat in 3 to 6 months if clinically indicated.Performed at: [facility] [address] [id number] Director: Lex Munguia PhD, Phone: [phone] Immunoglobulin light chains. kappa.free [Mass/volume] in Serumon 09-25-2023 Immunoglobulin light chains.kappa.free (S) [Mass/Vol] 54.2 mg/L Abnormal 3.3-19.4 [facility] Immunoglobulin light chains. kappa.free/Immunoglobulin light chains.lambda.free [Rayray 09-25-2023 Immunoglobulin light chains.kappa.free/Immuno globulin light chains.lambda.free (S) [Mass ratio] 1.00 0.26-1.65 [facility] Comment on above: Performed at: [facility] [address] [id number] Director: Lex Munguia PhD, Phone: [phone] Immunoglobulin light chains. lambda.free [Mass/volume] in Serum or Plasmaon 09-25-2023 Immunoglobulin light chains.lambda.free [Mass/Vol] 54.3 mg/L Abnormal 5.7-26.3 [facility] Laboratory - Chemistry and C hemistry - challengeon 09-25-2023 Albumin [Mass/Vol] 3.6 g/dL 3.4-5.0 [facility] Calcium [Mass/Vol] 9.2 mg/dL 8.5-10.1 [facility] Chloride [Moles/Vol] 101 mmol/L 98-107 [facility] CO2 [Moles/Vol] 27.2 mmol/L 21.0-32.0 [facility] Creatinine [Mass/Vol] 1.68 mg/dL High 0.55-1.02 [facility] GFR/1.73 sq M.predicted MDRD (S/P/Bld) [Vol rate/Area] 37 mL/min/{1.73_m2} Low >=60 [facility] Glucose [Mass/Vol] 125 mg/dL High 74-106 [facility] Magnesium [Mass/Vol] 1.6 mg/dL Low 1.8-2.4 [facility] Potassium [Moles/Vol] 4.5 mmol/L 3.5-5.1 [facility] Protein [Mass/Vol] 0.3 g/dL Abnormal Not Observed [facility] Sodium [Moles/Vol] 138 mmol/L 136-145 [facility] Urate [Mass/Vol] 6.5 mg/dL High 2.6-6.0 [facility] Urea nitrogen [Mass/Vol] 21.0 mg/dL High 7.0-18.0 [facility] Urea nitrogen/Creatinine [Mass ratio] 12.5 mg/mg [facility] Bilirubin Ql (U) Negative NEGATIVE [facility] Glucose (U) [Mass/Vol] Negative NEGATIVE [facility] Ketones Ql (U) Negative NEGATIVE [facility] pH (U) 6.0 [pH] 5.0-9.0 [facility] Specific gravity (U) [Rel density] 1.025 1.005-1.025 [facility] Urobilinogen Qn (U) 1.0 {Samira'U}/dL 0.2-1.0 [facility] Laboratory - Specimen inform ationon 09-25-2023 Appearance (U) CLEAR CLEAR [facility] Color (U) LT. YELLOW YELLOW [facility] Laboratory - Urinalysison Leukocyte esterase Test strip Ql (U) Negative NEGATIVE [facility] Mucus Ql (Urine sed) TRACE Abnormal NONE SEEN [facility] Nitrite Ql (U) Negative NEGATIVE [facility] Protein (U) [Mass/Vol] 54.6 mg/dL High <=11.9 Fi [facility] Protein Ql (U) 30 mg/dL Abnormal NEG/TRACE [facility] Leukocytes [#/volume] correc renato for nucleated erythrocytes in Blood by Automated counon 09-25-2023 WBC corrected for nucl RBC Auto (Bld) [#/Vol] 7.7 10 3/uL 4.0-11.0 [facility] MCH Auto (RBC) [Entitic mass ]on 09-25-2023 MCH (RBC) [Entitic mass] 30.8 pg 26.7-34.0 [facility] MCHC Auto (RBC) [Mass/Vol]on 09-25-2023 MCHC (RBC) [Mass/Vol] 33.8 g/dL 29.9-35.2 [facility] MCV Auto (RBC) [Entitic vol] on 09-25-2023 MCV (RBC) [Entitic vol] 91.1 fL 81.0-99.0 F [facility] Midbody Ab IF (S) [Titer]on 09-25-2023 Anti-Nuclear Ab Midbody Pattern TNP . [facility] Mitotic spindle apparatus Ab IF [Titer]on 09-25-2023 DE Spindle Apparatus Pattern TNP . [facility] Myeloperoxidase Ab [Units/vo lume] in Serum by Immunoassayon 09-25-2023 Myeloperoxidase Ab IA Qn (S) <0.2 units 0.0-0.9 [facility] No Panel Informationon 09-24 25-Hydroxy Vitamin D Total 21.8 ng/mL [facility] Comment on above: <20 ng/mL Vit D defi cient20-<30 ng/mL Vit D [id number] ng/mL Vit D sufficient>100 ng/mL Potential Toxicity Anti-Nuclear Antibody Comment 2 Comment . [facility] Comment on above: Pattern Potential Di vitoe Association Homogeneous Systemic Lupus Erythematosus, Drug Induced Systemic Lupus Erythematosus, Chronic Autoimmune hepatitis, Juvenile Idiopathic Arthritis Speckled Sjogren Syndrome, Systemic Lupus Erythematosus, Subacute Cutaneous Lupus, Lupus, Congenital Heart Block, Mixed Connective Tissue Disease, Scleroderma-diffuse, Scleroderma-Autoimmune Myositis Overlap Syndrome, Systemic Lupus Pudcoonnpxrvy-Izwrmmojctv-Xwcmzdjxqt Myositis Overlap Syndrome, Systemic Autoimmune Rheumatic Disease, [...] Linear Scleroderma, Antiphospholipid Syndrome Performed at: - [facility] [id number] Director: Lex Munguia PhD, Phone: [phone] Pattern Potential Di sease Association Homogeneous Systemic Lupus Erythematosus, Drug Induced Systemic Lupus Erythematosus, Chronic Autoimmune hepatitis, Juvenile Idiopathic Arthritis Speckled Sjogren Syndrome, Systemic Lupus Erythematosus, Subacute Cutaneous Lupus, Lupus, Congenital Heart Block, Mixed Connective Tissue Disease, Scleroderma-diffuse, Scleroderma-Autoimmune Myositis Overlap Syndrome, Systemic Lupus Dffleolbhjrol-Jhphrtwxhph-Ffitpqdkix Myositis Overlap Syndrome, Systemic Autoimmune Rheumatic Disease, [...] Cytopenias, Linear Scleroderma, Antiphospholipid Syndrome Performed at: [facility] [address] [id number] Director: Lex Munguia PhD, Phone: [phone] Atypical p-ANCA <1:20 titer Neg:<1:20 [facility] Comment on above: The atypical pANCA p attern has been observed in asignificant percentage of patients with ulcerative colitis,primary sclerosing cholangitis and autoimmune hepatitis.Performed at: [email or web address] [id number] Director: Sam Tolbert MD, Phone: [phone] at: [facility] [address] [id number] Director: Lex Munguia PhD, Phone: [phone] Parathyroid Hormone (Intact) 98 pg/mL Abnormal 15-65 [facility] Comment on above: Performed at: [employer] [facility] [address] [id number] Director: Lex Munguia PhD, Phone: [phone] Perinuclear ANCA (p-ANCA) Antibody <1:20 titer Neg:<1:20 [facility] Comment on above: The presence of posi tive fluorescence exhibiting P-ANCA orC-ANCA patterns alone is not specific for the diagnosis ofWegener's Granulomatosis (WG) or microscopic polyangiitis.Decisions about treatment should not be based solely onANCA IFA results. The International ANCA Group Consensusrecommends follow up testing of positive sera with both MT-3 and MPO-ANCA enzyme immunoassays. As many as 5% serumsamples are positive only by EIA. Ref. AM J Clin [id number];111:507-513. Phosphorus Level 3.9 mg/dL 2.6-4.7 [facility] Protein Electrophoresis Note Comment . [facility] Comment on above: Protein electrophore sis scan will follow via computer,mail, or advice line rn delivery. Urine Bacteria TRACE #/HPF Abnormal NONE SEEN [facility] Urine Culture Reflexed NO [facility] Urine Occult Blood Negative NEGATIVE [facility] Urine Other Casts NONE SEEN #/LPF NONE SEEN [facility] Urine Other Crystals None Seen #/HPF None Seen [facility] Urine Random Creatinine 138.59 mg/dL 20.0 0-300.0 0 [facility] Urine RBC 0-2 #/HPF 0-2 [facility] Urine Squamous Epithelial Cells FEW #/LPF Abnormal NONE/RARE [facility] Urine Transitional Epithelial Cells RARE #/LPF Abnormal NONE SEEN [facility] Urine WBC 0-2 #/HPF Abnormal NONE SEEN [facility] Nuclear Ab (S) [Titer]on Anti-Nuclear Antibody Screen Positive Abnormal . [facility] Comment on above: Negative <1:80 Borde rline 1:80 Positive >1:80 Negative <1:80 Borde rline 1:80 Positive >1:80 Nuclear dots nuclear Ab maggi colette IF (S) [Titer]on 09-25-2023 Anti-Nuclear Ab Nuclear Dot Pattern TNP . [facility] Nuclear membrane pores nucle ar Ab pattern IF (S) [Titer]on 09-25-2023 DE Nuclear Membrane Pattern TNP . [facility] Nucleolar nuclear Ab pattern (S) [Titer]on 09-25-2023 Anti-Nuclear Ab Nucleolar Pattern 1:160 Abnormal . [facility] Comment on above: ICAP nomenclature: A C-8,9,10 ICAP nomenclature: A C-8,9,10 PCNA extractable nuclear Ab IF (S) [Titer]on 09-25-2023 Anti-Nuclear Ab PCNA Pattern TNP . [facility] Platelet mean volume Auto (B ld) [Entitic vol]on 09-25-2023 Platelet mean volume (Bld) [Entitic vol] 11.9 fL 9.5-13.5 [facility] Platelets Auto (Bld) [#/Vol] on 09-25-2023 Platelets (Bld) [#/Vol] 215 10 3/uL 150-450 [facility] Protein [Mass/volume] in Ser um or Plasmaon 09-25-2023 Protein [Mass/Vol] 7.6 g/dL 6.0-8.5 [facility] Proteinase 3 Ab [Units/volum e] in Serum by Immunoassayon 09-25-2023 Proteinase 3 Ab IA Qn (S) <0.2 units 0.0-0.9 [facility] RBC Auto (Bld) [#/Vol]on RBC (Bld) [#/Vol] 4.26 10 6/uL 4.20-5.40 [facility] Serum classic neutrophil cyt oplasmic antibody titer by immunofluorescenceon 09-25-2023 Neutrophil cytoplasmic Ab.classic IF (S) [Titer] <1:20 titer Neg:<1:20 [facility] Serum globulin measurement ( mass/volume)on 09-25-2023 Globulin (S) [Mass/Vol] 3.8 g/dL 2.2-3.9 F [facility] Serum or plasma albumin/glob ulin mass ratioon 09-25-2023 Albumin/Globulin [Mass ratio] 1.1 {ratio} 0.7-1.7 [facility] Serum or plasma alpha 1 glob ulin measurement by electrophoresis (mass/volume)on 09-25-2023 Alpha 1 globulin Elph [Mass/Vol] 0.3 g/dL 0.0-0.4 [facility] Serum or plasma alpha 2 glob ulin measurement by electrophoresis (mass/volume)on 09-25-2023 Alpha 2 globulin Elph [Mass/Vol] 1.0 g/dL 0.4-1.0 [facility] Serum or plasma anion gap de terminationon 09-25-2023 Anion gap [Moles/Vol] 14.3 mmol/L [facility] Serum or plasma beta globuli n measurement by electrophoresis (mass/volume)on 09-25-2023 Beta globulin Elph [Mass/Vol] 1.2 g/dL 0.7-1.3 [facility] Serum or plasma gamma globul in measurement by electrophoresis (mass/volume)on 09-25-2023 Gamma globulin Elph [Mass/Vol] 1.4 g/dL 0.4-1.8 [facility] Serum or plasma immunoelectr ophoresis interpretationon 09-25-2023 Interpretation IEP [Interp] Comment Abnormal . [facility] Comment on above: Immunofixation shows IgG monoclonal protein with lambdalight chain specificity. Speckled nuclear Ab pattern (S) [Titer]on 09-25-2023 Anti-Nuclear Ab Speckled Pattern 1:320 Abnormal . [facility] Comment on above: ICAP nomenclature: A C-2,4,5,29 ICAP nomenclature: A C-2,4,5,29 Urine protein/creatinine rat ioon 09-25-2023 Protein/Creatinine (U) [Ratio] 0.39 [facility] 37on 05-11-2023 37 Referring you to a kidney doctor to help manage your reduced kidney function and uncontrolled HTN F/U with Dr Teague as scheduled- have labs drawn as he requested Call cardiology for any concerns Normal [facility] Office Visiton 05-11-2023 Follow-up visit [id number] Gagandeep Pantoja 1960 F Date Provider Department Center 05/11/2023 Winsome-SHONA DE LA PAZ Family History Problem Relation Age of Onset Heart failure Mother Diabetes Mother Dementia Mother Other Father Family Status - Relation Status Age at Mother Father Level of Service:26274 MT OFFICE/OUTPATIENT ESTABLISHED MOD MDM 30 MIN Normal [facility] 36on 04-20-2023 36 Okay... I peaked at them. Looks like renal function is back to improving. Yea, let's try to stay in the loop about what's going on. Can even call Zahida's office Sunday to see what they did if she's confused about things. Normal [facility] 36 Please let her know her kidney function has further worsened along with elevated potassium. Please have her hold lisinopril - will try to resume once her kidney function returns to normal. Stop spironolactone. Increase hydralazine to 50mg TID. Follow-up BMP in 1 week. Follow-up phone call in 1 week for her BP readings. Thanks [facility] Telephoneon 04-20-2023 Telephone [id number] Pantoja,Oral ia 1960 F Date Provider Department Center 04/20/2023 IVAN TRIVEDI Family History Problem Relation Age of Onset Heart failure Mother Diabetes Mother Dementia Mother Other Father Family Status - Relation Status Age at Mother Father [facility] 37on 04-12-2023 37 Decrease lisinopril to 10 mg daily from 20 mg because of elevated kidney function Start hydralazine 25 mg three times a day [facility] Office Visiton 04-12-2023 Follow-up visit [id number] Pantoja,Oral ia 1960 Provider Department Center 04/12/2023 SHONA SULLIVAN Family History Problem Relation Age of Onset Heart failure Mother Diabetes Mother Dementia Mother Other Father Family Status - Relation Status Age at Mother Father Level of Service:29078 MT OFFICE/OUTPATIENT ESTABLISHED MOD MDM 30 MIN [facility] Documentationon 03-20-2023 Documentation [id number] Pantoja,Oral ia 1960 F Provider Department Center 03/20/2023 SHONA SULLIVAN Family History Problem Relation Age of Onset Heart failure Mother Diabetes Mother Dementia Mother Other Father Family Status - Relation Status Age at Mother Father [facility] 37on 03-14-2023 37 Increase lisinopril to [...] Goal b/p is less than 130/80 Normal [facility] Office Visiton 03-14-2023 Follow-up visit [id number] Gagandeep Pantoja 1960 F Date Provider Department Center 03/14/2023 SHONA SULLIVAN [facility] Family History Problem Relation Age of Onset Heart failure Mother Diabetes Mother Dementia Mother Other Father Family Status - Relation Status Age at Mother Father Level of Service:15448 MT OFFICE/OUTPATIENT ESTABLISHED MOD MDM 30 MIN Normal [facility] GROUP A STREP CULTUREon 07-10 S. pyogenes Ag Ql (Unsp spec) Culture Observations: NEGATIVE FOR GROUP A STREPTOCOCCUS. Normal [facility] Comment on above: Performed By: #### S STEFANO GRASTCX ####[facility] [id number] [address]Dr. Marbella Jeffery STREPT SCREENon 07-19-2022 STREP SCREEN A Negative Normal NEGATIVE [facility] Comment on above: Performed By: #### S STEFANO GRASTCX ####[facility] [id number] [address]Dr. Marbella Jeffery XR CHEST 2 Von 07-19-2022 [...] by: ALEX LEWIS Date: 2022-07-19 10:18 Normal [facility] CBC AUTO DIFFon 06-28-2022 BASO # 0.1 103/ul Normal 0.0-0.1 [facility] Comment on above: Performed By: #### C BC #### [facility] [address] [address] [address] Marbella Jeffery Basophils/100 WBC (Bld) 0.7 % Normal 0.2-2.0 [facility] Comment on above: Performed By: #### C BC #### [facility] [address] [address] [address] Marbella Jeffery EO # 0.2 103/ul Normal 0.0-0.7 [facility] Comment on above: Performed By: #### C BC #### [facility] [address] [address] [address] Marbella Jeffery Eosinophils/100 WBC (Bld) 1.8 % Normal 0.9-7.0 [facility] Comment on above: Performed By: #### C BC #### [facility] [address] [place] [address] Dr. Marbella Jeffery Erythrocyte distribution width (RBC) [Ratio] 13.5 % Normal 11.0-15.0 [facility] Comment on above: Performed By: #### C BC #### [facility] [address] [place] [address] Dr. Marbella Jeffery Hematocrit (Bld) [Volume fraction] 35.2 % Critically low 36.0-48.0 [facility] Comment on above: Performed By: #### C BC #### [facility] [address] [place] [address] Dr. Marbella Jeffery Hemoglobin (Bld) [Mass/Vol] 11.8 g/dL Critically low 12.0-16.0 [facility] Comment on above: Performed By: #### C BC #### [facility] [address] [place] [address] Dr. Marbella Jeffery IG # 0.02 10e3/ul Normal 0.00-0.03 [facility] Comment on above: Performed By: #### C BC #### [facility] [address] [address] [address] Marbella Jeffery IG % 0.2 % Normal 0.0-0.5 [facility] Comment on above: Performed By: #### C BC #### [facility] [address] [place] [address] Dr. Marbella Jeffery LYMPH # 2.2 103/ul Normal 1.2-3.8 [facility] Comment on above: Performed By: #### C BC #### [facility] [address] [place] [address] Dr. Marbella Jeffery Lymphocytes/100 WBC (Bld) 25.2 % Normal 20.5-60.0 [facility] Comment on above: Performed By: #### C BC #### [facility] [address] [place] [address] Dr. Marbella Jeffery MANUAL DIFF REQ NO Normal [facility] Comment on above: Performed By: #### C BC #### [facility] [address] [place] [address] Dr. Marbella Jeffery MCH (RBC) [Entitic mass] 30.3 pg Normal 26.7-34.0 [facility] Comment on above: Performed By: #### C BC #### [facility] [address] [place] [address] Dr. Marbella Jeffery MCHC (RBC) [Mass/Vol] 33.5 g/dL Normal 29.9-35.2 [facility] Comment on above: Performed By: #### C BC #### [facility] [address] [place] [address] Dr. Marbella Jeffery MCV (RBC) [Entitic vol] 90.3 fL Normal 81.0-99.0 [facility] Comment on above: Performed By: #### C BC #### [facility] [address] [place] [address] Dr. Marbella Jeffery MONO # 0.8 103/ul Normal 0.3-0.8 [facility] Comment on above: Performed By: #### C BC #### [facility] [address] [place] [address] Dr. Marbella Jeffery Monocytes/100 WBC (Bld) 9.2 % Normal 1.7-12.0 [facility] Comment on above: Performed By: #### C BC #### [facility] [address] [place] [address] Dr. Marbella Jeffery NEUT # 5.5 103/ul Normal 1.4-6.5 [facility] Comment on above: Performed By: #### C BC #### [facility] [address] [address] [address] Marbella Jeffery Neutrophils/100 WBC (Bld) 62.9 % Normal 43.0-75.0 [facility] Comment on above: Performed By: #### C BC #### [facility] [address] [place] [address] Dr. Marbella Jeffery Platelet mean volume (Bld) [Entitic vol] 11.2 fL Normal 9.5-13.5 [facility] Comment on above: Performed By: #### C BC #### [facility] [address] [place] [address] Dr. Marbella Jeffery PLT 203 103/ul Normal 150-450 [facility] Comment on above: Performed By: #### C BC #### [facility] [address] [place] [address] Dr. Marbella Jeffery RBC 3.90 106/ul Critically low 4.20-5.40 [facility] Comment on above: Performed By: #### C BC #### [facility] [facility] [address] [place] [address] Dr. Marbella Jeffery WBC 8.7 103/ul Normal 4.0-11.0 [facility] Comment on above: Performed By: #### C BC #### [facility] [address] [place] [address] Dr. Marbella Jeffery FREE THYROXINE INDEX T7on FTI 5.09 Critically high 1.30-4.50 [facility] Comment on above: Performed By: #### T SH, LIPID, CMP, T7 #### [facility] [address] [place] [address] Dr. Marbella Jeffery T3U 38.0 % Normal 30.0-39.0 [facility] Comment on above: Performed By: #### T SH, LIPID, CMP, T7 #### [facility] [address] [address] [address] Marbella Jeffery T4 [Mass/Vol] 13.40 ug/dL Normal 4.80-13.90 [facility] Comment on above: Performed By: #### T SH, LIPID, CMP, T7 #### [facility] [address] [address] [address] Marbella Jeffery LIPID PROFILEon 06-28-2022 CHOL-HDL RATIO NORM SEE BELOW Normal [facility] Comment on above: Result Comment: 3.3 - 4.4 LOW RISK 4.4 - 7.1 AVERAGE RISK 7.1 - 11.0 MODERATE RISK >11.0 HIGH RISK Performed By: #### T SH, LIPID, CMP, T7 #### [facility] [address] [place] [address] Dr. Marbella Jeffery Cholesterol [Mass/Vol] 137 mg/dL Normal <=200 [facility] Comment on above: Performed By: #### T SH, LIPID, CMP, T7 #### [facility] [address] [address] [address] Marbella Jeffery Cholesterol in HDL [Mass/Vol] 44 mg/dL Normal 40-60 [facility] Comment on above: Performed By: #### T SH, LIPID, CMP, T7 #### [facility] [address] [address] [address] Marbella Jeffery Cholesterol in LDL [Mass/Vol] 67.2 mg/dL Normal [facility] Comment on above: Performed By: #### T SH, LIPID, CMP, T7 #### [facility] [address] [address] [address] Marbella Jeffery Cholesterol.total/Choles terol in HDL [Mass ratio] 3.1 {ratio} Normal [facility] Comment on above: Performed By: #### T SH, LIPID, CMP, T7 #### [facility] [address] [place] [address] Dr. Marbella Jeffery HDL NORMAL > or = 60 mg/dl - LO W CARDIOVASCULAR RISK <40 mg/dl - HIGH CARDIOVASCULAR RISK Normal [facility] Comment on above: Performed By: #### T SH, LIPID, CMP, T7 #### [facility] [address] [address] [address] Marbella Jeffery LDL CALC NORMAL SEE BELOW Normal [facility] Comment on above: Result Comment: <100 mg/dl OPTIMAL 100 - 129 mg/dl NEAR OR ABOVE OPTIMAL 130 - 159 mg/dl BORDERLINE HIGH 160 - 189 mg/dl HIGH >190 mg/dl VERY HIGH Performed By: #### T SH, LIPID, CMP, T7 #### [facility] [address] [address] [address] Marbella Jeffery Triglyceride [Mass/Vol] 129 mg/dL Normal <=150 [facility] Comment on above: Performed By: #### T SH, LIPID, CMP, T7 #### [facility] [address] [address] [address] Marbella Jeffery VLDL CALC 25.8 mg/dL Normal [facility] Comment on above: Performed By: #### T SH, LIPID, CMP, T7 #### [facility] [address] [address] [address] Marbella Jeffery PROF 14(COMP METB)on 023 Albumin [Mass/Vol] 3.1 g/dL Critically low 3.4-5.0 [facility] Comment on above: Performed By: #### T SH, LIPID, CMP, T7 #### [facility] [address] [place] [address] Dr. Marbella Jeffery Albumin/Globulin [Mass ratio] 0.7 {ratio} Normal [facility] Comment on above: Performed By: #### T SH, LIPID, CMP, T7 #### [facility] [address] [address] [address] Marbella Jeffery ALP [Catalytic activity/Vol] 168 U/L Critically high 46-116 [facility] Comment on above: Performed By: #### T SH, LIPID, CMP, T7 #### [facility] [address] [address] [address] Marbella Jeffery ALT [Catalytic activity/Vol] 14 U/L Normal 14-59 [facility] Comment on above: Performed By: #### T SH, LIPID, CMP, T7 #### [facility] [address] [address] [address] Marbella Jeffery Anion gap [Moles/Vol] 12.8 mmol/L Normal [facility] Comment on above: Performed By: #### T SH, LIPID, CMP, T7 #### [facility] [address] [place] [address] Dr. Marbella Jeffery AST [Catalytic activity/Vol] 13 U/L Critically low 15-37 [facility] Comment on above: Performed By: #### T SH, LIPID, CMP, T7 #### [facility] [address] [address] [address] Marbella Jeffery Bilirubin [Mass/Vol] 0.4 mg/dL Normal 0.2-1.0 [facility] Comment on above: Performed By: #### T SH, LIPID, CMP, T7 #### [facility] [address] [place] [address] Dr. Marbella Jeffery Calcium [Mass/Vol] 9.0 mg/dL Normal 8.5-10.1 [facility] Comment on above: Performed By: #### T SH, LIPID, CMP, T7 #### [facility] [address] [place] [address] Dr. Marbella Jeffery Chloride [Moles/Vol] 105 mmol/L Normal 98-107 [facility] Comment on above: Performed By: #### T SH, LIPID, CMP, T7 #### [facility] [address] [place] [address] Dr. Marbella Jeffery CO2 [Moles/Vol] 27.9 mmol/L Normal 21.0-32.0 [facility] Comment on above: Performed By: #### T SH, LIPID, CMP, T7 #### [facility] [address] [place] [address] Dr. Marbella Jeffery Creatinine [Mass/Vol] 1.17 mg/dL Critically high 0.55-1.02 [facility] Comment on above: Performed By: #### T SH, LIPID, CMP, T7 #### [facility] [address] [place] [address] Dr. Marbella Jeffery EGFR-AF LEBANESE 56 mL/min/1.73m2 Critically low >=60 [facility] Comment on above: Performed By: #### T SH, LIPID, CMP, T7 #### [facility] [address] [address] [address] Marbella Jeffery EGFR-NON AF LEBANESE 47 mL/min/1.73m2 Critically low >=60 [facility] Comment on above: Performed By: #### T SH, LIPID, CMP, T7 #### [facility] [address] [address] [address] Marbella Jeffery Globulin (S) [Mass/Vol] 4.5 g/dL Normal T [facility] Comment on above: Performed By: #### T SH, LIPID, CMP, T7 #### [facility] [address] [place] [address] Dr. Marbella Jeffery Glucose [Mass/Vol] 105 mg/dL Normal 74-106 [facility] Comment on above: Performed By: #### T SH, LIPID, CMP, T7 #### [facility] [address] [address] [address] Marbella Jeffery Potassium [Moles/Vol] 3.7 mmol/L Normal 3.5-5.1 [facility] Comment on above: Performed By: #### T SH, LIPID, CMP, T7 #### [facility] [address] [place] [address] Dr. Marbella Jeffery Protein [Mass/Vol] 7.6 g/dL Normal 6.4-8.2 [facility] Comment on above: Performed By: #### T SH, LIPID, CMP, T7 #### [facility] [address] [address] [address] Marbella Jeffery Sodium [Moles/Vol] 142 mmol/L Normal 136-145 [facility] Comment on above: Performed By: #### T SH, LIPID, CMP, T7 #### [facility] [address] [place] [address] Dr. Marbella Jeffery Urea nitrogen [Mass/Vol] 14.0 mg/dL Normal 7.0-18.0 [facility] Comment on above: Performed By: #### T SH, LIPID, CMP, T7 #### [facility] [address] [address] [address] Marbella Jeffery Urea nitrogen/Creatinine [Mass ratio] 12.0 mg/mg Normal [facility] Comment on above: Performed By: #### T SH, LIPID, CMP, T7 #### [facility] [address] [address] [address] Marbella Jeffery TSHon 06-28-2022 TSH Qn m[IU]/L Critically low 0.358-3.740 [facility] Comment on above: Result Comment: TEST REPEATED FOR VERIFICATION Performed By: #### T SH, LIPID, CMP, T7 #### [facility] [address] [address] [address] Marbella Jeffery PROF CHEM 8 (BAS METB)on Anion gap [Moles/Vol] 11.2 mmol/L Normal [facility] Comment on above: Performed By: #### B MP ####[facility] [address] [address]Dr. Marbella Jeffery Calcium [Mass/Vol] 9.2 mg/dL Normal 8.5-10.1 [facility] Comment on above: Performed By: #### B MP ####[facility] [address] [address]Dr. Marbella Jeffery Chloride [Moles/Vol] 102 mmol/L Normal 98-107 [facility] Comment on above: Performed By: #### B MP ####[facility] [address] [address]DrNaomi Jeffery CO2 [Moles/Vol] 29.3 mmol/L Normal 21.0-32.0 [facility] Comment on above: Performed By: #### B MP ####[facility] [address] [address]DrNaomi Jeffery Creatinine [Mass/Vol] 1.32 mg/dL Critically high 0.55-1.02 [facility] Comment on above: Performed By: #### B MP ####[facility] [address] [address] Marbella Jose D EGFR-AF LEBANESE 49 mL/min/1.73m2 Critically low >=60 [facility] Comment on above: Performed By: #### B MP ####[facility] [address] [address] Marbella Jose D EGFR-NON AF LEBANESE 41 mL/min/1.73m2 Critically low >=60 [facility] Comment on above: Performed By: #### B MP ####[facility] [address] [address]. Marbella Jeffery Glucose [Mass/Vol] 127 mg/dL Critically high 74-106 [facility] Comment on above: Performed By: #### B MP ####[facility] [address] [address]Dr. Marbella Jeffery Potassium [Moles/Vol] 4.5 mmol/L Normal 3.5-5.1 [facility] Comment on above: Performed By: #### B MP ####[facility] [address] [address]Dr. Marbella Jeffery Sodium [Moles/Vol] 138 mmol/L Normal 136-145 [facility] Comment on above: Performed By: #### B MP ####[facility] [address] [address]Dr. Marbella Jeffery Urea nitrogen [Mass/Vol] 20.0 mg/dL Critically high 7.0-18 .0 [facility] Comment on above: Performed By: #### B MP ####[facility] [address] [address]Dr. Marbella Jeffery Urea nitrogen/Creatinine [Mass ratio] 15.2 mg/mg Normal [facility] Comment on above: Performed By: #### B MP ####[facility] [address] [address]Dr. Marbella Jeffery NM STRESS/REST MULTIon 03-15 NM STRESS/REST MULTI Patient: DEEPTHI PANTOJA Exam Date: 03/15/2022 : 1960 Gender:F Ordering : DR YONY TEAGUE . Admission #: [id number] Family : Order #: [id number] CLICK HERE TO VIEW EXAM RADIOLOGY REPORT [...] Lewis M.D. on 03/16/2022 at 07:23 Normal [facility] CT LUNG CANCER SCREENINGon 1 05-02-2021 [...] by: ALEX LEWIS Date: 2022-03-01 08:03 Normal [facility] MRI BRAIN WO W CONon 08-20- [...] MICHAEL ELIZONDO Date: 2021-08-20 08:33 Normal [facility] CREATININEon 08-19-2021 Creatinine [Mass/Vol] 1.35 mg/dL Critically high 0.55-1.02 [facility] Comment on above: Performed By: #### C SHILO #### [facility] [address] [address] [address] Marbella Jeffery EGFR-AF LEBANESE 48 mL/min/1.73m2 Critically low >=60 [facility] Comment on above: Performed By: #### C SHILO #### [facility] [address] [address] [address] Marbella Jeffery EGFR-NON AF LEBANESE 40 mL/min/1.73m2 Critically low >=60 [facility] Comment on above: Performed By: #### C SHILO #### [facility] [address] [address] [address] Marbella Jeffery Vital Signs Date Time Vital Sign Value Performing Clinician Faci lity 10-04-2023 10:43-0400 Body height 157.48 cm [facility] 10-04-2023 10:43-0400 Body mass index (BMI) [Ratio] 26.5 kg/m2 [facility] 10-04-2023 10:43-0400 Body temperature 97.5 [degF] [facility] 10-04-2023 10:43-0400 Body weight 65.82 kg [facility] 10-04-2023 10:43-0400 Diastolic blood pressure 80 mm[Hg] [facility] 10-04-2023 10:43-0400 Heart rate 60 /min [facility] 10-04-2023 10:43-0400 Respiratory rate 16 /min [facility] 10-04-2023 10:43-0400 SaO2% (BldA) [Mass fraction] 97 % [facility] 10-04-2023 10:43-0400 Systolic blood pressure 140 mm[Hg] [facility] 08-30-2023 15:45-0400 Body height 157.48 cm [facility] 08-30-2023 15:45-0400 Body mass index (BMI) [Ratio] 26.2 kg/m2 [facility] 08-30-2023 15:45-0400 Body temperature 97.4 [degF] [facility] 08-30-2023 15:45-0400 Body weight 64.86 kg [facility] 08-30-2023 15:45-0400 Diastolic blood pressure 90 mm[Hg] [facility] 08-30-2023 15:45-0400 Heart rate 73 /min [facility] 08-30-2023 15:45-0400 Respiratory rate 16 /min [facility] 08-30-2023 15:45-0400 SaO2% (BldA) [Mass fraction] 97 % [facility] 08-30-2023 15:45-0400 Systolic blood pressure 204 mm[Hg] [facility] Encounters Encounter Date Encounter Type Care Provider Facility Start: 12-03-2023 End: 12-03-2023 ambulatory [facility] Start: 10-04-2023 End: 10-04-2023 ambulatory [facility] Work Phone: Start: 10-04-2023 End: 10-04-2023 Patient encounter procedure [facility] Work Phone: Start: 09-25-2023 Non-patient / Non-visit [facility] Work Phone: Start: 08-30-2023 End: 08-30-2023 ambulatory [facility] Work Phone: Start: 08-30-2023 End: 08-30-2023 Patient encounter procedure [facility] Work Phone: Start: 05-11-2023 End: 05-11-2023 ambulatory [facility] Start: 04-12-2023 End: 04-12-2023 ambulatory [facility] Start: 03-14-2023 End: 03-14-2023 ambulatory SHONAMICHA MILLERS [facility] Start: 07-19-2022 End: 07-19-2022 ambulatory [...] 12-27-2017 End: 12-28-2017 Patient encounter DEFAULT PHYSICIAN Facility:[facility] Start: 12-03-2017 End: 12-04-2017 Patient encounter DEFAULT PHYSICIAN Facility:[facility] Plan of Treatment Date Care Activity Detail Author Immunofixation for Urine [facility] Renal function 1999 panel - Serum or [facility] Ren[facility] function 1999 panel - Serum or [facility] Payers Date Payer Category Payer Medicare [id number] 2017 Unknown [id number] 1961 Medicaid [id number] 1961 Medicare [id number] 1960 Unknown [id number] 2.16.84 [id number] 1960 Unknown [id number] 1960 Unknown [id number] 2.16.84 [id number] 1960 Unknown [id number] 2.16.84 [id number] 1960 Unknown [id number] 2.16.84 [id number] 1960 Unknown [id number] 2.16.84 [id number] Medicare Medicare [id number] Unknown Social History Date Type Detail Facility Start: 08-30-2023 [facility] Start: 1960 Sex Assigned At Female F [facility] Clinical Notes 03-14-2023 to 12-03-2023 Note Date & Type Note Facility 12-03-2023 Note [facility] Note Chief Complaint: Patient here for 6 mo follow up hypertension and hyperlipidemia. She is not taking spironolactone, hydralazine, or Zetia and isn't sure why. Denies chest pain, SOB, and LE edema. She saw nephrology in August, and will see them again in Jan 2024. HPI: Deepthi Pantoja is a 63 y.o. female woman with a known history of coronary artery disease, prior stent placement, hypertension, dyslipidemia and hypothyroidism. She had complained of sharp, pinpoint chest discomfort over the left lower chest that comes on with rest and exertion. It last for a few seconds and resolves. No specific relationship to activity. No associated worsening shortness of breath. She has intermittent palpitations once every 2 or 3 weeks. She denies significant lightheadedness or dizziness and she has no syncope. No orthopnea, no paroxysmal external dyspnea, no significant lower extremity edema. She states her blood pressure has been elevated recently as high as 180-190 systolic. UPDATE 12/03/2023 Cardiology ROS: Review of Systems Constitutional: Positive for malaise/fatigue. Musculoskeletal: Positive for back pain, joint pain, muscle weakness, myalgias and neck pain. Neurological: Positive for light-headedness. All other systems reviewed and are negative. Past Medical History She has a past medical history of Coronary artery disease, Diabetes mellitus (CMS/HCC), Heart valve disease, Hyperlipidemia, Hypertension, and Multiple sclerosis (CMS/HCC). Surgical History She has a past surgical history that includes Appendectomy; Coronary stent placement; Cardiac catheterization; Back surgery; section, classic; Hysterectomy; Knee surgery; and Cholecystectomy. Social History She reports that she has been smoking cigarettes. She has been smoking an average of .5 packs per day. She has never used smokeless tobacco. She reports that she does not currently use alcohol. No history on file for drug use. Family History Family History Problem Relation Name Age of Onset Heart failure Mother Diabetes Mother Dementia Mother Other (lung cancer) Father Allergies Penicillins and Darvocet-n 100 [propoxyphene n-acetaminophen] Medications Current Outpatient Medications: aspirin 81 mg EC tablet, Take 1 tablet every day by oral route., Disp: , Rfl: carvedilol (Coreg) 25 mg tablet, Take one tablet BID this replaces metoprolol (Patient taking differently: Take 25 mg by mouth with breakfast and with evening meal.), Disp: 180 tablet, Rfl: 3 chlorthalidone (Hygroton) 25 mg tablet, Take 1 tablet (25 mg) by mouth in the morning., Disp: 90 tablet, Rfl: 3 citalopram (CeleXA) 20 mg tablet, Take 1 tablet every day by oral route for 30 days., Disp: , Rfl: diclofenac (Voltaren) 75 mg EC tablet, Take 75 mg by mouth in the morning and at bedtime. Do not crush, chew, or split., Disp: , Rfl: ezetimibe (Zetia) 10 mg tablet, Take 1 tablet (10 mg) by mouth at bedtime., Disp: 90 tablet, Rfl: 3 hydrALAZINE (Apresoline) 25 mg tablet, Take 1 tablet (25 mg) by mouth in the morning, at noon, and at bedtime., Disp: 90 tablet, Rfl: 11 isosorbide mononitrate ER (Imdur) 30 mg 24 hr tablet, Take 1 tablet (30 mg) by mouth in the morning. Do not crush or chew., Disp: 90 tablet, Rfl: 3 levothyroxine (Synthroid, Levoxyl) 200 mcg tablet, Take 200 mcg by mouth before breakfast., Disp: , Rfl: pantoprazole (ProtoNix) 40 mg EC tablet, Take 40 mg by mouth in the morning., Disp: , Rfl: simvastatin (Zocor) 20 mg tablet, Take 1 tablet (20 mg) by mouth at bedtime., Disp: 90 tablet, Rfl: 3 spironolactone (Aldactone) 25 mg tablet, Take 1 tablet (25 mg) by mouth in the morning., Disp: 90 tablet, Rfl: 3 Last Recorded Vitals BP 162/72 (BP Location: Right arm, Patient Position: Sitting) Pulse 62 Ht 1.575 m (5' 2 ) Wt 67.6 kg (149 lb) SpO2 98% BMI 27.25 kg/m??? Physical Examination: GENERAL: alert and oriented x3, well developed, in no acute distress. HEAD: atraumatic, normocephalic. EYES: JACINTO, EOMI. NECK: trachea midline, no JVD present, no carotid bruits present. CARDIAC: S1, S2 present. RRR. No murmur, rubs, or gallops. RESPIRATORY: CTAB, no increased effort of breathing, no rales, rhonchi, or wheezing. ABDOMEN: soft, nontender, nondistended. EXTREMITIES: no lower extremity edema, peripheral pulses are 2+ bilaterally. No rash/skin discoloration present. NEURO: strength/sensation equal and symmetric in bilateral upper and lower extremities. PSYCH: appropriate mood, affect, and judgement. Investigations: Echocardiogram 02/2019: Normal left and right ventricular systolic function. Mild mitral regurgitation. Mild tricuspid regurgitation with mildly increased pulmonary pressures. Stress test 05/28/2019 Lexiscan stress test: Indication: Chest pain, history of systolic congestive heart failure Per the reports, there are downsloping in leads II, III, and aVF. After (more content not included)... [facility] 05-11-2023 Note Pt has stopped takin g simvastatin- asked pt to resume taking simvastatin [facility] 05-11-2023 Note Currently is not nicole ing multiple antihypertensive meds- Dr Teague's office states that asked pt to hold lisinopril and has repeat labs next Sunday. I asked pt to resume taking hydralazine, imdur, aldactone. Referral to nephrology sent [facility] 05-11-2023 Note In light of noted AK I on CKD will refer pt to nephrology for further evaluation and management of renal disease and assistance with HTN managemend [facility] 05-11-2023 Note [facility] CARDIOLOGY PROGR ESS NOTE [...] LV systolic function (more content not included)... [facility] 05-11-2023 Note Patient here for 1 m [...] All other systems reviewed and are negative. [facility] 04-12-2023 Note Decrease lisinopril to 10 mg daily, repeat BMP in 1 week in light she is taking Chlorthalidone, lisinopril and aldactone. Hopefully renal function improves and HTN is controlled. [facility] 04-12-2023 Note [facility]TP CARDIOLOGY PROGR [...] LE edema. After BMP on 03/19, Maddy De La Paz wanted her to go back down on [...] Affect: Mood normal. (more content not included)... [facility] 04-12-2023 Note Patient here for [...] LE edema. After BMP on 03/19, Maddy De La Paz wanted her to go back down on [...] All other systems reviewed and are negative. [facility] 04-12-2023 Note Hypertension is much improved- but renal function increased therefore decrease lisinopril to 10 mg daily and add hydralazine 25 mg tid. Repeat labs- BMP in 1 week to check renal function RTC 1 month [facility] 04-12-2023 Note Coronary artery dise ase is stable Continue GDMT continue risk factor modifications- heart healthy diet, regular exercise as tolerated and continue all medications. [facility] 03-20-2023 Note At last visit [...] Staff to call and update pt. Shona De La Paz NP Division of Cardiology, [facility] [phone] Pager- [phone] Email- [email or web address] 03-20-2023 Note At last visit [...] Staff to call and update pt. Shona De La Paz NP Division of Cardiology, [facility] [phone] Pager- [phone] Email- [email or web address] 03-14-2023 Note Will send script for meclizine for S/S of vertigo- pt to f/u with PCP for further evaluation and management [facility] 03-14-2023 Note Will add imdur to me d regime, d/w pt to call office for side effects- headache, hypotension or any concerns and she voiced understanding [facility] 03-14-2023 Note Patient here for 6 m o follow up chest pain, CAD, and hypertension. Says her intermittent chest pain remains unchanged. Denies SOB, LE edema, and palpitations. Had a dizzy spell that lasted 2 days around [place]. Says she feels anxious and jumpy and she isn't sure why. Review of Systems Constitutional: Positive for malaise/fatigue and weight loss (18# since 10/31/2022). Cardiovascular: Positive for chest pain (intermittent, unchanged). Musculoskeletal: Positive for back pain, joint pain, muscle weakness, myalgias and neck pain. Neurological: Positive for light-headedness. Psychiatric/Behavioral: The patient is nervous/anxious. All other systems reviewed and are negative. [facility] 03-14-2023 Note [facility] CARDIOLOGY PROGR ESS NOTE HPI: Deepthi Pantoja is a 62 y.o. female here for 6 mo follow up chest pain, CAD, and hypertension. Says her intermittent chest pain remains unchanged. Denies SOB, LE edema, and palpitations. Had a dizzy spell that lasted 2 days around [place]. Says she feels anxious and jumpy and [...] she gets dizzy. Admits dizzy spell at [place], states that the room starts spinning and [...] echocardiogram and F/ (more content not included)... [facility] 03-14-2023 Note Coronary artery dise ase is stable Continue GDMT- ASA, coreg, zetia, simvastatin, and lisinopril continue risk factor modifications- heart healthy diet, regular exercise as tolerated and continue all medications. [facility] 03-14-2023 Note Hypertension is unco ntrolled and pt states she is taking medications daily- reports she took all meds today Increase lisinopril to 20 mg daily and add imdur 30 mg for HTN and chest pain [facility] 03-14-2023 Note Continue zocor and zetia [facility] 03-14-2023 Note No concerning sympto ms today Monitor with echocardiogram and F/u assessment of any concerning symptoms [facility] Evaluation note Diagnosis Onset Date CAD (coronary artery disease) acute CKD (chronic kidney disease) stage 3, GFR 30-59 ml/min acute Hyperlipidemia acute [id number] acute Secondary hyperparathyroidism acute [facility] Work Phone: Evaluation note* Diagnosis Onset Date Resolution Status CAD (coronary artery disease) acute CKD (chronic kidney disease) stage 3, GFR 30-59 ml/min acute Hyperlipidemia acute [id number] acute Secondary hyperparathyroidism acute CAD (coronary artery disease) acute CKD (chronic kidney disease) stage 3, GFR 30-59 ml/min acute Hyperlipidemia acute [id number] acute Hyperuricemia acute Hypomagnesemia acute MGUS (monoclonal gammopathy of unknown significance) acute Secondary hyperparathyroidism acute [facility] Work Phone: Summary Purpose Family History No Family History Records FoundNo Family History Records FoundNo Family History Records Found Advance Directives No Advanced Directives Records Found Advance Directive Response Recorded Date/ Time Advance Directives No July 04 9:29am Chief Complaint and Reason for Visit Chief Complaint RENAL CKD / RENAL FA ILURE Reason for Visit CAD (coronary artery disease) CKD (chronic kidney disease) stage 3, GFR 30-59 ml/min Hyperlipidemia [id number] Secondary hyperparathyroidism Chief Complaint RENAL CKD / RENAL FA ILURE 6 week follow up Reason for Visit CAD (coronary artery disease) CKD (chronic kidney disease) stage 3, GFR 30-59 ml/min Hyperlipidemia [id number] Secondary hyperparathyroidism CAD (coronary artery disease) CKD (chronic kidney disease) stage 3, GFR 30-59 ml/min Hyperlipidemia [id number] Hyperuricemia Hypomagnesemia MGUS (monoclonal gammopathy of unknown significance) Secondary hyperparathyroidism Additional Source Comments INFORMATION SOURCE (unrecogn ized section and content) DATE CREATED AUTHOR 01/01/2018 [facility] DATE CREATED AUTHOR AUTHOR'S ORGANIZ ATION 07/22/2022 [facility] DATE CREATED AUTHOR AUTHOR'S ORGANIZ ATION 12/04/2023 [facility] Care Teams (unrecognized sec tion [...] BE BASED ON THE PRIMARY CLINICAL RECORDS. [facility] [employer] [facility]. provides no warranty or guarantee of the accuracy or completeness of information in this document.
== END 2023-12-13 09:06 | disposition home or self-care (01) ==
LOC: CARD 09:06
PROVIDERS: PCP Family Medicine; Visit Provider Internal Medicine Interventional Cardiology
DX: I34.0 Nonrheumatic mitral (valve) insufficiency (principal)
CPT/HCPCS: 93306; 93356

== ENCOUNTER 2024-02-04 09:42 | Outpatient (OUT) | payer OTHER, SELFPAY ==
[2024-02-04 10:47] LABS: Hematocrit 35.7 % (36.0-48.0); Hemoglobin 12.1 g/dL (12.0-16.0); Mean Corpuscular HGB Conc 33.9 g/dL (29.9-35.2); Mean Corpuscular Hemoglobin 31.1 pg (26.7-34.0); Mean Corpuscular Volume 91.8 fL (81.0-99.0); Mean Platelet Volume 11.8 fL (9.5-13.5); Platelet Count 202 10^3/uL (150-450); Red Blood Count 3.89 10^6/uL (4.20-5.40); Red Cell Distribution Width 12.8 % (11.0-15.0); White Blood Count 7.4 10^3/uL (4.0-11.0)
[2024-02-04 10:54] LABS: Bilirubin Urine NEGATIVE (NEGATIVE); Blood Urine NEGATIVE (NEGATIVE); Clarity Urine CLEAR (CLEAR); Color Urine LT. YELLOW (YELLOW); Glucose Urine UA NEGATIVE (NEGATIVE); Ketones Urine NEGATIVE (NEGATIVE); Leukocyte Esterase Urine NEGATIVE (NEGATIVE); Nitrite Urine NEGATIVE (NEGATIVE); Protein Urine TRACE mg/dL (NEG/TRACE); Specific Gravity Urine 1.025 (1.005-1.025); Urobilinogen Urine 0.2 EU/dL (0.2-1.0)
[2024-02-04 10:58] LABS: Creatinine Urine Random 137.32 mg/dL (20.00-300.00); Protein Creatinine Ratio Urine 0.27; Total Protein Urine Random 36.9 mg/dL (<=11.9)
[2024-02-04 11:20] LABS: Anion Gap 17.1; BUN Creatinine Ratio 14.3; Calcium 9.3 mg/dL (8.5-10.1); Chloride 104 mmol/L (98-107); Estimated GFR (African America 35 (>=60 mL/min/1.73m^2); Estimated GFR (Non-African Ame 29 (>=60 mL/min/1.73m^2); Glucose 202 mg/dL (74-106); Magnesium 1.7 mg/dL (1.8-2.4); Phosphorus 3.8 mg/dL (2.6-4.7); Potassium 4.1 mmol/L (3.5-5.1); Sodium 140 mmol/L (136-145); Uric Acid 6.9 mg/dL (2.6-6.0)
[2024-02-04 12:55] LABS: Bacteria Urine TRACE #/HPF (NONE SEEN); Mucus Urine NONE SEEN (NONE SEEN); RBC Urine 0-2 #/HPF (0-2); Squamous Epithelial Cell Urine RARE #/LPF (NONE/RARE); WBC Urine 0-2 #/HPF (NONE SEEN)
[2024-02-04 12:56] LABS: Cast Seen? NONE SEEN #/LPF (NONE SEEN); Crystals Seen? None Seen #/HPF (None Seen)
[2024-02-05 12:10] LABS: PTH, Intact 59 pg/mL (15-65)
== END 2024-02-04 09:43 | disposition home or self-care (01) ==
LOC: LAB 09:44
PROVIDERS: PCP Family Medicine; Visit Provider Internal Medicine
DX: D47.2 Monoclonal gammopathy (principal); E83.42 Hypomagnesemia; E79.0 Hyperuricemia without signs of inflammatory arthritis and tophaceous disease; E78.5 Hyperlipidemia, unspecified; N25.81 Secondary hyperparathyroidism of renal origin; I25.10 Atherosclerotic heart disease of native coronary artery without angina pectoris
CPT/HCPCS: 36415; 80069; 81001; 82306; 82570; 83735; 83970; 84156; 84550; 85027

== ENCOUNTER 2024-03-20 10:09 | Outpatient (OUT) | payer OTHER, SELFPAY ==
[2024-03-20 10:50] LABS: Basophils Absolute Auto 0.1 10^3/uL (0.0-0.1); Basophils Percent Auto 0.7 % (0.2-2.0); Eosinophils Absolute Auto 0.1 10^3/uL (0.0-0.7); Eosinophils Percent Auto 1.3 % (0.9-7.0); Hematocrit 37.8 % (36.0-48.0); Hemoglobin 12.3 g/dL (12.0-16.0); Immature Granulocytes Abs Auto 0.02 10^3/uL (0.00-0.03); Immature Granulocytes Pct Auto 0.2 % (0.0-0.5); Lymphocytes Absolute Auto 1.7 10^3/uL (1.2-3.8); Lymphocytes Percent Auto 20.4 % (20.5-60.0); Mean Corpuscular HGB Conc 32.5 g/dL (29.9-35.2); Mean Corpuscular Hemoglobin 29.8 pg (26.7-34.0); Mean Corpuscular Volume 91.5 fL (81.0-99.0); Mean Platelet Volume 11.3 fL (9.5-13.5); Monocytes Absolute Auto 0.5 10^3/uL (0.3-0.8); Monocytes Percent Auto 6.3 % (1.7-12.0); Neutrophils Percent Auto 71.1 % (43.0-75.0); Platelet Count 234 10^3/uL (150-450); Red Blood Count 4.13 10^6/uL (4.20-5.40); Red Cell Distribution Width 13.1 % (11.0-15.0); White Blood Count 8.4 10^3/uL (4.0-11.0)
[2024-03-20 11:23] LABS: Alanine Aminotransferase 13 U/L (14-59); Albumin Globulin Ratio 0.7; Albumin Level 3.2 g/dL (3.4-5.0); Alkaline Phosphatase 148 U/L (46-116); Anion Gap 12.8; Aspartate Amino Transferase 13 U/L (15-37); BUN Creatinine Ratio 7.9; Bilirubin Total 0.3 mg/dL (0.2-1.0); Calcium 8.9 mg/dL (8.5-10.1); Carbon Dioxide 28.8 mmol/L (21.0-32.0); Chloride 105 mmol/L (98-107); Estimated GFR (African America 42 (>=60 mL/min/1.73m^2); Estimated GFR (Non-African Ame 34 (>=60 mL/min/1.73m^2); Globulin 4.3 g/dL; Glucose 136 mg/dL (74-106); Potassium 3.6 mmol/L (3.5-5.1); Sodium 143 mmol/L (136-145); Total Protein 7.5 g/dL (6.4-8.2)
[2024-03-24 16:11] LABS: Albumin 3.5 g/dL (2.9-4.4); Alpha-1-Globulin 0.3 g/dL (0.0-0.4); Alpha-2-Globulin 0.9 g/dL (0.4-1.0); Free Kappa Lt Chains,S 61.6 mg/L (3.3-19.4); Free Lambda Lt Chains,S 52.5 mg/L (5.7-26.3); Gamma Globulin 1.2 g/dL (0.4-1.8); Immunoglobulin A, Qn, Serum 346 mg/dL (87-352); Immunoglobulin G, Qn, Serum 1231 mg/dL (586-1602); Immunoglobulin M, Qn, Serum 142 mg/dL (26-217); Kappa/Lambda Ratio,S 1.17 (0.26-1.65)
== END 2024-03-20 10:10 | disposition home or self-care (01) ==
LOC: LAB 10:14
PROVIDERS: PCP Family Medicine; Visit Provider Internal Medicine Hematology & Oncology
DX: E79.0 Hyperuricemia without signs of inflammatory arthritis and tophaceous disease (principal); D47.2 Monoclonal gammopathy
CPT/HCPCS: 36415; 80053; 82784; 83521; 84155; 84165; 85025

== ENCOUNTER 2024-03-25 07:41 | Outpatient (RCR) | payer MEDICARE, SELFPAY | END 2024-03-26 08:50 | disposition home or self-care (01) | LOC: HEMC 07:41 | PROVIDERS: PCP Family Medicine; Visit Provider Internal Medicine Hematology & Oncology | DX: D47.2 Monoclonal gammopathy (principal); E79.0 Hyperuricemia without signs of inflammatory arthritis and tophaceous disease; N18.30 Chronic kidney disease, stage 3 unspecified; F17.210 Nicotine dependence, cigarettes, uncomplicated; Z95.5 Presence of coronary angioplasty implant and graft; Z90.49 Acquired absence of other specified parts of digestive tract; Z98.51 Tubal ligation status; I12.9 Hypertensive chronic kidney disease with stage 1 through stage 4 chronic kidney disease, or unspecified chronic kidney disease; E11.22 Type 2 diabetes mellitus with diabetic chronic kidney disease | CPT/HCPCS: G0463 ==

== ENCOUNTER 2024-06-27 08:10 | Outpatient (OUT) | payer MEDICARE, SELFPAY ==
--- OUTSIDE RECORDS SUMMARY | 2024-06-27 08:18 | XMS_ITS | CCD ---
Author Organization [facility] CliniSyut Care Team Providers Care Registered Physical Therapist Name Role Phone PHYSICIAN, DEFAULT Unavailable Unavailable [...] Unavailable HOY ., DR BHAKTA Consulting Unavailable COTULLA, DR MICHAEL Turcios Consulting Unavailable HOY ., DR BHAKTA Admitting Unavailable HOY ., DR BHAKTA Attending Unavailable HOY ., DR BHAKTA Primary Care Unavailable HOY ., DR BHAKTA Consulting Unavailable ZIEBER, DR ALEX Palma Consulting Unavailable BRAINSHONA Hoang Attending Unavailable BRAINSHONA Attending Unavailable BRAINSHONA Hoang Attending Unavailable ELTAHAWY, LAURIE Attending Unavailable Allergies Allergy Classification Reported Allergen(s) Allergy Type Date of Onset Reaction(s) Facility Acetaminophen (1 source) Acetaminophen Drug Allergy 4 [facility] Opioid Agonists (1 source) Propoxyphene Drug Allergy 4 [facility] Penicillins (antibiotic) (1 source) Penicillins Drug Allergy 4 Hives [facility] (1 source) acetaminophen / propoxyphene; Translations: [Darvocet] Drug Allergy [address] [facility] Repository (4 sources) Penicillins; Translations: [PENICILLINS] Drug allergy (disorder) 2 [facility], Hives [facility] (1 source) Darvocet-N 100 Drug allergy (disorder) 3 [facility] Repository (1 source) Acetaminophen Drug Allergy 4 [facility] (1 source) Propoxyphene Drug Allergy 4 [facility] (1 source) PROPOXYPHENE N-ACETAMINOPHEN; Translations: [PROPOXYPHENE N-ACETAMINOPHEN] Propensity to adverse reactions to drug (disorder) 4 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 Albumin [Mass/volume] in Ser um or Plasmaon 09-25-2023 Albumin [Mass/Vol] 3.8 g/dL 2.9-4.4 [facility] Centriole Ab IF (S) [Titer]o n 09-25-2023 Anti-Nuclear Ab Centriole Pattern [place] . [facility] Centromere Ab IF (S) [Titer] on 09-25-2023 Anti-Nuclear Ab Centromere Pattern [place] . [facility] Erythrocyte distribution wid th Auto (RBC) [Ratio]on 09-25-2023 Erythrocyte distribution width (RBC) [Ratio] 13.7 % 11.0-15.0 [facility] Estimated glomerular filtrat ion rate (GFR) non- Americanon 09-25-2023 GFR/1.73 sq M.predicted among non-blacks MDRD (S/P/Bld) [Vol rate/Area] 31 mL/min/{1.73_m2} Low >=60 [facility] Hematocrit Auto (Bld) [Volum e fraction]on 09-25-2023 Hematocrit (Bld) [Volume fraction] 38.8 % 36.0-48.0 [facility] Hemoglobin [Mass/volume] in Bloodon 09-25-2023 Hemoglobin (Bld) [Mass/Vol] 13.1 g/dL 12.0-16.0 [facility] Homogenous nuclear Ab patter n (S) [Titer]on 09-25-2023 Anti-Nuclear Ab Homogeneous Pattern TNP . [facility] IgA [Mass/volume] in Serum o r Plasmaon 09-25-2023 IgA [Mass/Vol] 332 mg/dL 87-352 [facility] IgG [Mass/volume] in Serum o r Plasmaon 09-25-2023 IgG [Mass/Vol] 1291 mg/dL 586-1602 [facility] IgM [Mass/volume] in Serum o r Plasmaon 09-25-2023 IgM [Mass/Vol] 206 mg/dL 26-217 [facility] Immunofixation for Urineon 0 09-25-2023 Interpretation Immunofixation (U) [Interp] Comment: . [facility] Comment on above: Presence of monoclon al protein is unclear at this time. Suggestrepeat in 3 to 6 months if clinically indicated.Performed at: [facility] [address] [id number] Director: Lex Munguia PhD, Phone: [phone] Immunoglobulin light chains. kappa.free [Mass/volume] in Serumon 09-25-2023 Immunoglobulin light chains.kappa.free (S) [Mass/Vol] 54.2 mg/L Abnormal 3.3-19.4 [facility] Immunoglobulin light chains. kappa.free/Immunoglobulin light chains.lambda.free [Rayray 09-25-2023 Immunoglobulin light chains.kappa.free/Immuno globulin light chains.lambda.free (S) [Mass ratio] 1.00 0.26-1.65 [facility] Comment on above: Performed at: [facility] [address] [id number] Director: Lex Munguia PhD, Phone: [phone] Immunoglobulin light chains. lambda.free [Mass/volume] in Serum or Plasmaon 09-25-2023 Immunoglobulin light chains.lambda.free [Mass/Vol] 54.3 mg/L Abnormal 5.7-26.3 [facility] Laboratory - Chemistry and C hemistry - challengeon 09-25-2023 Albumin [Mass/Vol] 3.6 g/dL 3.4-5.0 [facility] Calcium [Mass/Vol] 9.2 mg/dL 8.5-10.1 [facility] Chloride [Moles/Vol] 101 mmol/L 98-107 [facility] CO2 [Moles/Vol] 27.2 mmol/L 21.0-32.0 [facility] Creatinine [Mass/Vol] 1.68 mg/dL High 0.55-1.02 [facility] GFR/1.73 sq M.predicted MDRD (S/P/Bld) [Vol rate/Area] 37 mL/min/{1.73_m2} Low >=60 [facility] Glucose [Mass/Vol] 125 mg/dL High 74-106 [facility] Magnesium [Mass/Vol] 1.6 mg/dL Low 1.8-2.4 [facility] Potassium [Moles/Vol] 4.5 mmol/L 3.5-5.1 [facility] Protein [Mass/Vol] 0.3 g/dL Abnormal Not Observed [facility] Sodium [Moles/Vol] 138 mmol/L 136-145 [facility] Urate [Mass/Vol] 6.5 mg/dL High 2.6-6.0 [facility] Urea nitrogen [Mass/Vol] 21.0 mg/dL High 7.0-18.0 [facility] Urea nitrogen/Creatinine [Mass ratio] 12.5 mg/mg [facility] Bilirubin Ql (U) Negative NEGATIVE [facility] Glucose (U) [Mass/Vol] Negative NEGATIVE [facility] Ketones Ql (U) Negative NEGATIVE [facility] pH (U) 6.0 [pH] 5.0-9.0 [facility] Specific gravity (U) [Rel density] 1.025 1.005-1.025 [facility] Urobilinogen Qn (U) 1.0 {Samira'U}/dL 0.2-1.0 [facility] Laboratory - Specimen inform ationon 09-25-2023 Appearance (U) CLEAR CLEAR [facility] Color (U) LT. YELLOW YELLOW [facility] Laboratory - Urinalysison Leukocyte esterase Test strip Ql (U) Negative NEGATIVE [facility] Mucus Ql (Urine sed) TRACE Abnormal NONE SEEN [facility] Nitrite Ql (U) Negative NEGATIVE [facility] Protein (U) [Mass/Vol] 54.6 mg/dL High <=11.9 Fi [facility] Protein Ql (U) 30 mg/dL Abnormal NEG/TRACE [facility] Leukocytes [#/volume] correc renato for nucleated erythrocytes in Blood by Automated counon 09-25-2023 WBC corrected for nucl RBC Auto (Bld) [#/Vol] 7.7 10 3/uL 4.0-11.0 [facility] MCH Auto (RBC) [Entitic mass ]on 09-25-2023 MCH (RBC) [Entitic mass] 30.8 pg 26.7-34.0 [facility] MCHC Auto (RBC) [Mass/Vol]on 09-25-2023 MCHC (RBC) [Mass/Vol] 33.8 g/dL 29.9-35.2 [facility] MCV Auto (RBC) [Entitic vol] on 09-25-2023 MCV (RBC) [Entitic vol] 91.1 fL 81.0-99.0 [facility] Midbody Ab IF (S) [Titer]on 09-25-2023 Anti-Nuclear Ab Midbody Pattern TNP . [facility] Mitotic spindle apparatus Ab IF [Titer]on 09-25-2023 DE Spindle Apparatus Pattern TNP . [facility] Myeloperoxidase Ab [Units/vo lume] in Serum by Immunoassayon 09-25-2023 Myeloperoxidase Ab IA Qn (S) <0.2 units 0.0-0.9 [facility] No Panel Informationon 09-24 25-Hydroxy Vitamin D Total 21.8 ng/mL [facility] Comment on above: <20 ng/mL Vit D defi cient20-<30 ng/mL Vit D [id number] ng/mL Vit D sufficient>100 ng/mL Potential Toxicity Anti-Nuclear Antibody Comment 2 Comment . [facility] Comment on above: Pattern Potential Di vitoe Association Homogeneous Systemic Lupus Erythematosus, Drug Induced Systemic Lupus Erythematosus, Chronic Autoimmune hepatitis, Juvenile Idiopathic Arthritis Speckled Sjogren Syndrome, Systemic Lupus Erythematosus, Subacute Cutaneous Lupus, Lupus, Congenital Heart Block, Mixed Connective Tissue Disease, Scleroderma-diffuse, Scleroderma-Autoimmune Myositis Overlap Syndrome, Systemic Lupus Ftwxraxnynzxc-Dpcpoowhoox-Fzdckcfnop Myositis Overlap Syndrome, Systemic Autoimmune Rheumatic Disease, [...] Linear Scleroderma, Antiphospholipid Syndrome Performed at: - [facility] [id number] Director: Lex Munguia PhD, Phone: [phone] Pattern Potential Di sease Association Homogeneous Systemic Lupus Erythematosus, Drug Induced Systemic Lupus Erythematosus, Chronic Autoimmune hepatitis, Juvenile Idiopathic Arthritis Speckled Sjogren Syndrome, Systemic Lupus Erythematosus, Subacute Cutaneous Lupus, Lupus, Congenital Heart Block, Mixed Connective Tissue Disease, Scleroderma-diffuse, Scleroderma-Autoimmune Myositis Overlap Syndrome, Systemic Lupus Ecbthbuwgypdx-Egjvvyqonow-Dkfffikxyo Myositis Overlap Syndrome, Systemic Autoimmune Rheumatic Disease, [...] Cytopenias, Linear Scleroderma, Antiphospholipid Syndrome Performed at: [facility] [address] [id number] Director: Lex Munguia PhD, Phone: [phone] Atypical p-ANCA <1:20 titer Neg:<1:20 [facility] Comment on above: The atypical pANCA p attern has been observed in asignificant percentage of patients with ulcerative colitis,primary sclerosing cholangitis and autoimmune hepatitis.Performed at: [facility] [id number] Director: Sam Tolbert MD, Phone: [phone] at: [facility] [address] [id number] Director: Lex Munguia PhD, Phone: [phone] Parathyroid Hormone (Intact) 98 pg/mL Abnormal 15-65 [facility] Comment on above: Performed at: [facility] [address] [id number] Director: Lex Munguia PhD, Phone: [phone] Perinuclear ANCA (p-ANCA) Antibody <1:20 titer Neg:<1:20 [facility] Comment on above: The presence of posi tive fluorescence exhibiting P-ANCA orC-ANCA patterns alone is not specific for the diagnosis ofWegener's Granulomatosis (WG) or microscopic polyangiitis.Decisions about treatment should not be based solely onANCA IFA results. The International ANCA Group Consensusrecommends follow up testing of positive sera with both IN-3 and MPO-ANCA enzyme immunoassays. As many as 5% serumsamples are positive only by EIA. Ref. AM J Clin [id number];111:507-513. Phosphorus Level 3.9 mg/dL 2.6-4.7 [facility] Protein Electrophoresis Note Comment . [facility] Comment on above: Protein electrophore sis scan will follow via computer,mail, or credit charge authorizer delivery. Urine Bacteria TRACE #/HPF Abnormal NONE SEEN [facility] Urine Culture Reflexed NO [facility] Urine Occult Blood Negative NEGATIVE [facility] Urine Other Casts NONE SEEN #/LPF NONE SEEN [facility] Urine Other Crystals None Seen #/HPF None Seen [facility] Urine Random Creatinine 138.59 mg/dL 20.0 0-300.0 0 [facility] Urine RBC 0-2 #/HPF 0-2 [facility] Urine Squamous Epithelial Cells FEW #/LPF Abnormal NONE/RARE [facility] Urine Transitional Epithelial Cells RARE #/LPF Abnormal NONE SEEN [facility] Urine WBC 0-2 #/HPF Abnormal NONE SEEN [facility] Nuclear Ab (S) [Titer]on Anti-Nuclear Antibody Screen Positive Abnormal . [facility] Comment on above: Negative <1:80 Borde rline 1:80 Positive >1:80 Negative <1:80 Borde rline 1:80 Positive >1:80 Nuclear dots nuclear Ab maggi colette IF (S) [Titer]on 09-25-2023 Anti-Nuclear Ab Nuclear Dot Pattern TNP . [facility] Nuclear membrane pores nucle ar Ab pattern IF (S) [Titer]on 09-25-2023 DE Nuclear Membrane Pattern TNP . [facility] Nucleolar nuclear Ab pattern (S) [Titer]on 09-25-2023 Anti-Nuclear Ab Nucleolar Pattern 1:160 Abnormal . [facility] Comment on above: ICAP nomenclature: A C-8,9,10 ICAP nomenclature: A C-8,9,10 PCNA extractable nuclear Ab IF (S) [Titer]on 09-25-2023 Anti-Nuclear Ab PCNA Pattern TNP . [facility] Platelet mean volume Auto (B ld) [Entitic vol]on 09-25-2023 Platelet mean volume (Bld) [Entitic vol] 11.9 fL 9.5-13.5 [facility] Platelets Auto (Bld) [#/Vol] on 09-25-2023 Platelets (Bld) [#/Vol] 215 10 3/uL 150-450 [facility] Protein [Mass/volume] in Ser um or Plasmaon 09-25-2023 Protein [Mass/Vol] 7.6 g/dL 6.0-8.5 [facility] Proteinase 3 Ab [Units/volum e] in Serum by Immunoassayon 09-25-2023 Proteinase 3 Ab IA Qn (S) <0.2 units 0.0-0.9 [facility] RBC Auto (Bld) [#/Vol]on RBC (Bld) [#/Vol] 4.26 10 6/uL 4.20-5.40 [facility] Serum classic neutrophil cyt oplasmic antibody titer by immunofluorescenceon 09-25-2023 Neutrophil cytoplasmic Ab.classic IF (S) [Titer] <1:20 titer Neg:<1:20 [facility] Serum globulin measurement ( mass/volume)on 09-25-2023 Globulin (S) [Mass/Vol] 3.8 g/dL 2.2-3.9 [facility] Serum or plasma albumin/glob ulin mass ratioon 09-25-2023 Albumin/Globulin [Mass ratio] 1.1 {ratio} 0.7-1.7 [facility] Serum or plasma alpha 1 glob ulin measurement by electrophoresis (mass/volume)on 09-25-2023 Alpha 1 globulin Elph [Mass/Vol] 0.3 g/dL 0.0-0.4 [facility] Serum or plasma alpha 2 glob ulin measurement by electrophoresis (mass/volume)on 09-25-2023 Alpha 2 globulin Elph [Mass/Vol] 1.0 g/dL 0.4-1.0 [facility] Serum or plasma anion gap de terminationon 09-25-2023 Anion gap [Moles/Vol] 14.3 mmol/L [facility] Serum or plasma beta globuli n measurement by electrophoresis (mass/volume)on 09-25-2023 Beta globulin Elph [Mass/Vol] 1.2 g/dL 0.7-1.3 [facility] Serum or plasma gamma globul in measurement by electrophoresis (mass/volume)on 09-25-2023 Gamma globulin Elph [Mass/Vol] 1.4 g/dL 0.4-1.8 [facility] Serum or plasma immunoelectr ophoresis interpretationon 09-25-2023 Interpretation IEP [Interp] Comment Abnormal . [facility] Comment on above: Immunofixation shows IgG monoclonal protein with lambdalight chain specificity. Speckled nuclear Ab pattern (S) [Titer]on 09-25-2023 Anti-Nuclear Ab Speckled Pattern 1:320 Abnormal . [facility] Comment on above: ICAP nomenclature: A C-2,4,5,29 ICAP nomenclature: A C-2,4,5,29 Urine protein/creatinine rat ioon 09-25-2023 Protein/Creatinine (U) [Ratio] 0.39 [facility] 37on 05-11-2023 37 Referring you to a kidney doctor to help manage your reduced kidney function and uncontrolled HTN F/U with Dr Teague as scheduled- have labs drawn as he requested Call cardiology for any concerns Normal [facility] Office Visiton 05-11-2023 Follow-up visit [id number] Gagandeep Pantoja 1960 F Date Provider Department Center 05/11/2023 Winsome-SHONA DE LA PAZ Family History Problem Relation Age of Onset Heart failure Mother Diabetes Mother Dementia Mother Other Father Family Status - Relation Status Age at Mother Father Level of Service:15699 IN OFFICE/OUTPATIENT ESTABLISHED MOD MDM [address] [facility] 36on 04-20-2023 36 Okay... I peaked at them. Looks like renal function is back to improving. Yea, let's try to stay in the loop about what's going on. Can even call Zahida's office Sunday to see what they did if she's confused about things. Normal [facility] 36 Please let her know her kidney function has further worsened along with elevated potassium. Please have her hold lisinopril - will try to resume once her kidney function returns to normal. Stop spironolactone. Increase hydralazine to 50mg TID. Follow-up BMP in 1 week. Follow-up phone call in 1 week for her BP readings. Thanks [facility] Telephoneon 04-20-2023 Telephone [id number] Pantoja,Oral ia 1960 F Date Provider Department Center 04/20/2023 IVAN TRIVEDI Family History Problem Relation Age of Onset Heart failure Mother Diabetes Mother Dementia Mother Other Father Family Status - Relation Status Age at Mother Father [facility] 37on 04-12-2023 37 Decrease lisinopril to 10 mg daily from 20 mg because of elevated kidney function Start hydralazine 25 mg three times a day [facility] Office Visiton 04-12-2023 Follow-up visit [id number] Pantoja,Oral ia 1960 Provider Department Center 04/12/2023 SHONA SULLIVAN Family History Problem Relation Age of Onset Heart failure Mother Diabetes Mother Dementia Mother Other Father Family Status - Relation Status Age at Mother Father Level of Service:77984 IN OFFICE/OUTPATIENT ESTABLISHED MOD MDM 30 MIN [facility] Documentationon 03-20-2023 Documentation [id number] Pantoja,Oral ia 1960 F Provider Department Center 03/20/2023 SHONA SULLIVAN Family History Problem Relation Age of Onset Heart failure Mother Diabetes Mother Dementia Mother Other Father Family Status - Relation Status Age at Mother Father [facility] 37on 03-14-2023 37 Increase lisinopril to [...] Goal b/p is less than 130/[address] [facility] Office Visiton 03-14-2023 Follow-up visit [id number] Gagandeep Pantoja 1960 F Date Provider Department Center 03/14/2023 SHONA SULLIVAN [facility] Family History Problem Relation Age of Onset Heart failure Mother Diabetes Mother Dementia Mother Other Father Family Status - Relation Status Age at Mother Father Level of Service:06639 IN OFFICE/OUTPATIENT ESTABLISHED MOD MDM [address] [facility] GROUP A STREP CULTUREon 07-10 S. pyogenes Ag Ql (Unsp spec) Culture Observations: NEGATIVE FOR GROUP A STREPTOCOCCUS. Normal [facility] Comment on above: Performed By: #### S STEFANO GRASTCX ####[facility] [id number] [address]Dr. Marbella Jeffery STREPT SCREENon 07-19-2022 STREP SCREEN A Negative Normal NEGATIVE [facility] Comment on above: Performed By: #### S STEFANO GRASTCX ####[facility] [id number] [address]Dr. Marbella Jeffery XR CHEST 2 Von 07-19-2022 [...] by: ALEX LEWIS Date: 2022-07-19 10:18 Normal [facility] CBC AUTO DIFFon 06-28-2022 BASO # 0.1 103/ul Normal 0.0-0.1 [facility] Comment on above: Performed By: #### C BC #### [facility] [address] [address] [address] Marbella Jeffery Basophils/100 WBC (Bld) 0.7 % Normal 0.2-2.0 [facility] [place] Comment on above: Performed By: #### C BC #### [facility] [address] [address] [address] Marbella Jeffery EO # 0.2 103/ul Normal 0.0-0.7 [facility] Comment on above: Performed By: #### C BC #### [facility] [address] [address] [address] Marbella Jeffery Eosinophils/100 WBC (Bld) 1.8 % Normal 0.9-7.0 [facility] Comment on above: Performed By: #### C BC #### [facility] [address] [place] [address] Dr. Marbella Jeffery Erythrocyte distribution width (RBC) [Ratio] 13.5 % Normal 11.0-15.0 [facility] Comment on above: Performed By: #### C BC #### [facility] [address] [place] [address] Dr. Marbella Jeffery Hematocrit (Bld) [Volume fraction] 35.2 % Critically low 36.0-48.0 [facility] Comment on above: Performed By: #### C BC #### [facility] [address] [place] [address] Dr. Marbella Jeffery Hemoglobin (Bld) [Mass/Vol] 11.8 g/dL Critically low 12.0-16.0 [facility] Comment on above: Performed By: #### C BC #### [facility] [address] [place] [address] Dr. Marbella Jeffery IG # 0.02 10e3/ul Normal 0.00-0.03 [facility] Comment on above: Performed By: #### C BC #### [facility] [address] [address] [address] Marbella Jeffery IG % 0.2 % Normal 0.0-0.5 [facility] Comment on above: Performed By: #### C BC #### [facility] [address] [place] [address] Dr. Marbella Jeffery LYMPH # 2.2 103/ul Normal 1.2-3.8 [facility] Comment on above: Performed By: #### C BC #### [facility] [address] [place] [address] Dr. Marbella Jeffery Lymphocytes/100 WBC (Bld) 25.2 % Normal 20.5-60.0 [facility] Comment on above: Performed By: #### C BC #### [facility] [address] [place] [address] Dr. Marbella Jeffery MANUAL DIFF REQ NO Normal [facility] Comment on above: Performed By: #### C BC #### [facility] [address] [place] [address] Dr. Marbella Jeffery MCH (RBC) [Entitic mass] 30.3 pg Normal 26.7-34.0 [facility] Comment on above: Performed By: #### C BC #### [facility] [address] [place] [address] Dr. Marbella Jeffery MCHC (RBC) [Mass/Vol] 33.5 g/dL Normal 29.9-35.2 [facility] Comment on above: Performed By: #### C BC #### [facility] [address] [place] [address] Dr. Marbella Jeffery MCV (RBC) [Entitic vol] 90.3 fL Normal 81.0-99.0 [facility] [place] Comment on above: Performed By: #### C BC #### [facility] [address] [place] [address] Dr. Marbella Jeffery MONO # 0.8 103/ul Normal 0.3-0.8 [facility] Comment on above: Performed By: #### C BC #### [facility] [address] [place] [address] Dr. Marbella Jeffery Monocytes/100 WBC (Bld) 9.2 % Normal 1.7-12.0 [facility] [place] Comment on above: Performed By: #### C BC #### [facility] [address] [place] [address] Dr. Marbella Jeffery NEUT # 5.5 103/ul Normal 1.4-6.5 [facility] Comment on above: Performed By: #### C BC #### [facility] [address] [address] [address] Marbella Jeffery Neutrophils/100 WBC (Bld) 62.9 % Normal 43.0-75.0 [facility] Comment on above: Performed By: #### C BC #### [facility] [address] [place] [address] Dr. Marbella Jeffery Platelet mean volume (Bld) [Entitic vol] 11.2 fL Normal 9.5-13.5 [facility] Comment on above: Performed By: #### C BC #### [facility] [address] [place] [address] Dr. Marbella Jeffery PLT 203 103/ul Normal 150-450 [facility] Comment on above: Performed By: #### C BC #### [facility] [address] [place] [address] Dr. Marbella Jeffery RBC 3.90 106/ul Critically low 4.20-5.40 [facility] Comment on above: Performed By: #### C BC #### [facility] [address] [place] [address] Dr. Marbella Jeffery WBC 8.7 103/ul Normal 4.0-11.0 [facility] Comment on above: Performed By: #### C BC #### [facility] [address] [place] [address] Dr. Marbella Jeffery FREE THYROXINE INDEX T7on FTI 5.09 Critically high 1.30-4.50 [facility] Comment on above: Performed By: #### T SH, LIPID, CMP, T7 #### [facility] [address] [place] [address] Dr. Marbella Jeffery T3U 38.0 % Normal 30.0-39.0 [facility] Comment on above: Performed By: #### T SH, LIPID, CMP, T7 #### [facility] [address] [address] [address] Marbella Jeffery T4 [Mass/Vol] 13.40 ug/dL Normal 4.80-13.90 [facility] Comment on above: Performed By: #### T SH, LIPID, CMP, T7 #### [facility] [address] [address] [address] Marbella Jeffery LIPID PROFILEon 06-28-2022 CHOL-HDL RATIO NORM SEE BELOW Normal [facility] Comment on above: Result Comment: 3.3 - 4.4 LOW RISK 4.4 - 7.1 AVERAGE RISK 7.1 - 11.0 MODERATE RISK >11.0 HIGH RISK Performed By: #### T SH, LIPID, CMP, T7 #### [facility] [address] [place] [address] Dr. Marbella Jeffery Cholesterol [Mass/Vol] 137 mg/dL Normal <=200 Th [facility] Comment on above: Performed By: #### T SH, LIPID, CMP, T7 #### [facility] [address] [address] [address] Marbella Jeffery Cholesterol in HDL [Mass/Vol] 44 mg/dL Normal 40-60 [facility] Comment on above: Performed By: #### T SH, LIPID, CMP, T7 #### [facility] [address] [address] [address] Marbella Jeffery Cholesterol in LDL [Mass/Vol] 67.2 mg/dL Normal [facility] Comment on above: Performed By: #### T SH, LIPID, CMP, T7 #### [facility] [address] [address] [address] Marbella Jeffery Cholesterol.total/Choles terol in HDL [Mass ratio] 3.1 {ratio} Normal [facility] Comment on above: Performed By: #### T SH, LIPID, CMP, T7 #### [facility] [address] [place] [address] Dr. Marbella Jeffery HDL NORMAL > or = 60 mg/dl - LO W CARDIOVASCULAR RISK <40 mg/dl - HIGH CARDIOVASCULAR RISK Normal [facility] Comment on above: Performed By: #### T SH, LIPID, CMP, T7 #### [facility] [address] [address] [address] Marbella Jeffery LDL CALC NORMAL SEE BELOW Normal [facility] Comment on above: Result Comment: <100 mg/dl OPTIMAL 100 - 129 mg/dl NEAR OR ABOVE OPTIMAL 130 - 159 mg/dl BORDERLINE HIGH 160 - 189 mg/dl HIGH >190 mg/dl VERY HIGH Performed By: #### T SH, LIPID, CMP, T7 #### [facility] [address] [address] [address] Marbella Jeffery Triglyceride [Mass/Vol] 129 mg/dL Normal <=150 [facility] [place] Comment on above: Performed By: #### T SH, LIPID, CMP, T7 #### [facility] [address] [address] [address] Marbella Jeffery VLDL CALC 25.8 mg/dL Normal [facility] Comment on above: Performed By: #### T SH, LIPID, CMP, T7 #### [facility] [address] [address] [address] Marbella Jeffery PROF 14(COMP METB)on 023 Albumin [Mass/Vol] 3.1 g/dL Critically low 3.4-5.0 Th [facility] Comment on above: Performed By: #### T SH, LIPID, CMP, T7 #### [facility] [address] [place] [address] Dr. Marbella Jeffery Albumin/Globulin [Mass ratio] 0.7 {ratio} Normal [facility] Comment on above: Performed By: #### T SH, LIPID, CMP, T7 #### [facility] [address] [address] [address] Marbella Jeffery ALP [Catalytic activity/Vol] 168 U/L Critically high 46-116 [facility] Comment on above: Performed By: #### T SH, LIPID, CMP, T7 #### [facility] [address] [address] [address] Marbella Jeffery ALT [Catalytic activity/Vol] 14 U/L Normal 14-59 [facility] Comment on above: Performed By: #### T SH, LIPID, CMP, T7 #### [facility] [address] [address] [address] Marbella Jeffery Anion gap [Moles/Vol] 12.8 mmol/L Normal Th e [facility] Comment on above: Performed By: #### T SH, LIPID, CMP, T7 #### [facility] [address] [place] [address] Dr. Marbella Jeffery AST [Catalytic activity/Vol] 13 U/L Critically low 15-37 [facility] Comment on above: Performed By: #### T SH, LIPID, CMP, T7 #### [facility] [address] [address] [address] Marbella Jeffery Bilirubin [Mass/Vol] 0.4 mg/dL Normal 0.2-1.0 [facility] Comment on above: Performed By: #### T SH, LIPID, CMP, T7 #### [facility] [address] [place] [address] Dr. Marbella Jeffery Calcium [Mass/Vol] 9.0 mg/dL Normal 8.5-10.1 [facility] Comment on above: Performed By: #### T SH, LIPID, CMP, T7 #### [facility] [address] [place] [address] Dr. Marbella Jeffery Chloride [Moles/Vol] 105 mmol/L Normal 98-107 [facility] Comment on above: Performed By: #### T SH, LIPID, CMP, T7 #### [facility] [address] [place] [address] Dr. Marbella Jeffery CO2 [Moles/Vol] 27.9 mmol/L Normal 21.0-32.0 [facility] Comment on above: Performed By: #### T SH, LIPID, CMP, T7 #### [facility] [address] [place] [address] Dr. Marbella Jeffery Creatinine [Mass/Vol] 1.17 mg/dL Critically high 0.55-1.02 [facility] Comment on above: Performed By: #### T SH, LIPID, CMP, T7 #### [facility] [address] [place] [address] Dr. Marbella Jeffery EGFR-AF KUWAITI 56 mL/min/1.73m2 Critically low >=60 [facility] Comment on above: Performed By: #### T SH, LIPID, CMP, T7 #### [facility] [address] [address] [address] Marbella Jeffery EGFR-NON AF [place]I 47 mL/min/1.73m2 Critically low >=60 [facility] Comment on above: Performed By: #### T SH, LIPID, CMP, T7 #### [facility] [address] [address] [address] Marbella Jeffery Globulin (S) [Mass/Vol] 4.5 g/dL Normal T [facility] Comment on above: Performed By: #### T SH, LIPID, CMP, T7 #### [facility] [address] [place] [address] Dr. Marbella Jeffery Glucose [Mass/Vol] 105 mg/dL Normal 74-[address] [facility] Comment on above: Performed By: #### T SH, LIPID, CMP, T7 #### [facility] [address] [address] [address] Marbella Jeffery Potassium [Moles/Vol] 3.7 mmol/L Normal 3.5-5.1 [facility] Comment on above: Performed By: #### T SH, LIPID, CMP, T7 #### [facility] [address] [place] [address] Dr. Marbella Jeffery Protein [Mass/Vol] 7.6 g/dL Normal 6.4-8.[address] [facility] Comment on above: Performed By: #### T SH, LIPID, CMP, T7 #### [facility] [address] [address] [address] Marbella Jeffery Sodium [Moles/Vol] 142 mmol/L Normal 136-[address] [facility] Comment on above: Performed By: #### T SH, LIPID, CMP, T7 #### [facility] [address] [place] [address] Dr. Marbella Jeffery Urea nitrogen [Mass/Vol] 14.0 mg/dL Normal 7.0-18.0 [facility] Comment on above: Performed By: #### T SH, LIPID, CMP, T7 #### [facility] [address] [address] [address] Marbella Jeffery Urea nitrogen/Creatinine [Mass ratio] 12.0 mg/mg Normal [facility] Comment on above: Performed By: #### T SH, LIPID, CMP, T7 #### [facility] [address] [address] [address] Marbella Jeffery TSHon 06-28-2022 TSH Qn m[IU]/L Critically low 0.358-3.740 [facility] Comment on above: Result Comment: TEST REPEATED FOR VERIFICATION Performed By: #### T SH, LIPID, CMP, T7 #### [facility] [address] [address] [address] Marbella Jeffery PROF CHEM 8 (BAS METB)on Anion gap [Moles/Vol] 11.2 mmol/L Normal [facility] Comment on above: Performed By: #### B MP ####[facility] [address] [address]Dr. Marbella Jeffery Calcium [Mass/Vol] 9.2 mg/dL Normal 8.5-10.1 [facility] Comment on above: Performed By: #### B MP ####[facility] [address] [address]Dr. Marbella Jeffery Chloride [Moles/Vol] 102 mmol/L Normal 98-107 [facility] Comment on above: Performed By: #### B MP ####[facility] [address] [address]DrNaomi Jeffery CO2 [Moles/Vol] 29.3 mmol/L Normal 21.0-32.0 [facility] Comment on above: Performed By: #### B MP ####[facility] [address] [address]DrNaomi Jeffery Creatinine [Mass/Vol] 1.32 mg/dL Critically high 0.55-1.02 [facility] Comment on above: Performed By: #### B MP ####[facility] [address] [address] Marbella Jose D EGFR-AF [place]I 49 mL/min/1.73m2 Critically low >=60 [facility] Comment on above: Performed By: #### B MP ####[facility] [address] [address]. Marbella Jose D EGFR-NON AF [place]I 41 mL/min/1.73m2 Critically low >=60 [facility] Comment on above: Performed By: #### B MP ####[facility] [address] [address]. Marbella Jeffery Glucose [Mass/Vol] 127 mg/dL Critically high 74-106 [facility] [place] Comment on above: Performed By: #### B MP ####[facility] [address] [address]Dr. Marbella Jeffery Potassium [Moles/Vol] 4.5 mmol/L Normal 3.5-5.1 [facility] Comment on above: Performed By: #### B MP ####[facility] [address] [address]Dr. Marbella Jeffery Sodium [Moles/Vol] 138 mmol/L Normal 136-145 [facility] Comment on above: Performed By: #### B MP ####[facility] [address] [address]Dr. Marbella Jeffery Urea nitrogen [Mass/Vol] 20.0 mg/dL Critically high 7.0-18 .0 [facility] Comment on above: Performed By: #### B MP ####[facility] [address] [address]Dr. Marbella Jeffery Urea nitrogen/Creatinine [Mass ratio] 15.2 mg/mg Normal [facility] Comment on above: Performed By: #### B MP ####[facility] [address] [address]Dr. Marbella Jeffery NM STRESS/REST MULTIon 03-15 NM STRESS/REST MULTI Patient: DEEPTHI PANTOJA Exam Date: 03/15/2022 : 1960 Gender:F Ordering : DR YONY TEAGUE . Admission #: [id number] Family : Order #: [id number] CLICK HERE TO VIEW EXAM RADIOLOGY REPORT [...] Lewis M.D. on 03/16/2022 at 07:23 Normal [facility] CT LUNG CANCER SCREENINGon 1 [...] by: ALEX LEWIS Date: 2022-03-01 08:03 Normal [facility] MRI BRAIN WO W CONon [...] MICHAEL ELIZONDO Date: 2021-08-20 08:33 Normal [facility] CREATININEon 08-19-2021 Creatinine [Mass/Vol] 1.35 mg/dL Critically high 0.55-1.02 [facility] Comment on above: Performed By: #### C SHILO #### [facility] [address] [address] [address] Marbella Jeffery EGFR-AF [place]I 48 mL/min/1.73m2 Critically low >=60 [facility] Comment on above: Performed By: #### C SHILO #### [facility] [address] [address] [address] Marbella Jeffery EGFR-NON AF [place] 40 mL/min/1.73m2 Critically low >=60 [facility] Comment on above: Performed By: #### C SIHLO #### [facility] [address] [address] [address] Marbella Jeffery Vital Signs Date Time Vital Sign Value Performing Clinician Faci lity 10-04-2023 10:43-0400 Body height 157.48 cm [facility] 10-04-2023 10:43-0400 Body mass index (BMI) [Ratio] 26.5 kg/m2 [facility] 10-04-2023 10:43-0400 Body temperature 97.5 [degF] [facility] 10-04-2023 10:43-0400 Body weight 65.82 kg [facility] 10-04-2023 10:43-0400 Diastolic blood pressure 80 mm[Hg] [facility] 10-04-2023 10:43-0400 Heart rate 60 /min [facility] 10-04-2023 10:43-0400 Respiratory rate 16 /min [facility] 10-04-2023 10:43-0400 SaO2% (BldA) [Mass fraction] 97 % [facility] 10-04-2023 10:43-0400 Systolic blood pressure 140 mm[Hg] [facility] 08-30-2023 15:45-0400 Body height 157.48 cm [facility] 08-30-2023 15:45-0400 Body mass index (BMI) [Ratio] 26.2 kg/m2 [facility] 08-30-2023 15:45-0400 Body temperature 97.4 [degF] [facility] 08-30-2023 15:45-0400 Body weight 64.86 kg [facility] 08-30-2023 15:45-0400 Diastolic blood pressure 90 mm[Hg] [facility] 08-30-2023 15:45-0400 Heart rate 73 /min [facility] 08-30-2023 15:45-0400 Respiratory rate 16 /min [facility] 08-30-2023 15:45-0400 SaO2% (BldA) [Mass fraction] 97 % [facility] 08-30-2023 15:45-0400 Systolic blood pressure 204 mm[Hg] [facility] Encounters Encounter Date Encounter Type Care Provider Facility Start: 12-03-2023 End: 12-03-2023 ambulatory [facility] Start: 10-04-2023 End: 10-04-2023 ambulatory [facility] Work Phone: Start: 10-04-2023 End: 10-04-2023 Patient encounter procedure [facility] Dm Work Phone: Start: 09-25-2023 Non-patient / [facility]visit [facility] Work Phone: Start: 08-30-2023 End: 08-30-2023 ambulatory [facility] Work Phone: Start: 08-30-2023 End: 08-30-2023 Patient encounter procedure [facility] Dm Work Phone: Start: 05-11-2023 End: 05-11-[address] [facility] Start: 04-12-2023 End: 04-12-[address] [facility] Start: 03-14-2023 End: 03-14-[address] [facility] Start: 07-19-2022 End: 07-19-[address] [...] 12-27-2017 End: 12-28-2017 Patient encounter DEFAULT PHYSICIAN Facility:[facility] Start: 12-03-2017 End: 12-04-2017 Patient encounter DEFAULT PHYSICIAN Facility:[facility] Plan of Treatment Date Care Activity Detail Author Immunofixation for Urine Fir [facility] Renal function 1999 panel - Serum or Plasma [facility] enter Renal function 1999 panel - Serum or Plasma [facility] enter [facility] Payers Date Payer Category Payer Medicare [id number] 2017 Unknown [id number] 1961 Medicaid [id number] 1961 Medicare [id number] 1960 Unknown [id number] 2.16.84 [id number] 1960 Unknown [id number] 1960 Unknown [id number] 2.16.84 [id number] 1960 Unknown [id number] 2.16.84 [id number] 1960 Unknown [id number] 2.16.84 [id number] 1960 Unknown [id number] 2.16.84 [id number] Medicare Medicare [id number] Unknown Social History Date Type Detail Facility Start: [facility]-30-2023 [facility] Start: 1960 Sex Assigned At Female F [facility] Clinical Notes 03-14-2023 to 12-03-2023 Note Date & Type Note Facility 12-03-2023 Note [facility] Note Chief Complaint: Patient [...] and aVF. After (more content not included)... [facility] 05-11-2023 Note Pt has stopped takin g simvastatin- asked pt to resume taking simvastatin [facility] 05-11-2023 Note Currently is not nicole ing multiple antihypertensive meds- Dr Teague's office states that asked pt to hold lisinopril and has repeat labs next Sunday. I asked pt to resume taking hydralazine, imdur, aldactone. Referral to nephrology sent [facility] 05-11-2023 Note In light of noted AK I on CKD will refer pt to nephrology for further evaluation and management of renal disease and assistance with HTN managemend [facility] 05-11-2023 Note [facility]TP CARDIOLOGY PROGR ESS [...] LV systolic function (more content not included)... [facility] 05-11-2023 Note Patient here for 1 [...] All other systems reviewed and are negative. [facility] 04-12-2023 Note Decrease lisinopril to 10 mg daily, repeat BMP in 1 week in light she is taking Chlorthalidone, lisinopril and aldactone. Hopefully renal function improves and HTN is controlled. [facility] 04-12-2023 Note [facility]TP CARDIOLOGY PROGR ESS [...] Affect: Mood normal. (more content not included)... [facility] 04-12-2023 Note Patient here for 1 [...] All other systems reviewed and are negative. [facility] 04-12-2023 Note Hypertension is much improved- but renal function increased therefore decrease lisinopril to 10 mg daily and add hydralazine 25 mg tid. Repeat labs- BMP in 1 week to check renal function RTC [address] [facility] 04-12-2023 Note Coronary artery dise ase is stable Continue GDMT continue risk factor modifications- heart healthy diet, regular exercise as tolerated and continue all medications. [facility] 03-20-2023 Note At last visit HTN [...] De La Paz NP Division of Cardiology, [facility] [phone] Pager- [phone] Email- [email or web address] 03-20-2023 Note At last visit HTN [...] De La Paz NP Division of Cardiology, [facility] [phone] Pager- [phone] Email- [email or web address] 03-14-2023 Note Will send script for meclizine for S/S of vertigo- pt to f/u with PCP for further evaluation and management [facility] 03-14-2023 Note Will add imdur to me d regime, d/w pt to call office for side effects- headache, hypotension or any concerns and she voiced understanding [facility] 03-14-2023 Note Patient here for 6 [...] All other systems reviewed and are negative. [facility] 03-14-2023 Note UTP CARDIOLOGY PROGR ESS [...] echocardiogram and F/ (more content not included)... [facility] 03-14-2023 Note Coronary artery dise ase is stable Continue GDMT- ASA, coreg, zetia, simvastatin, and lisinopril continue risk factor modifications- heart healthy diet, regular exercise as tolerated and continue all medications. [facility] 03-14-2023 Note Hypertension is unco ntrolled and pt states she is taking medications daily- reports she took all meds today Increase lisinopril to 20 mg daily and add imdur 30 mg for HTN and chest pain [facility] 03-14-2023 Note Continue zocor and zetia [facility] 03-14-2023 Note No concerning sympto ms today Monitor with echocardiogram and F/u assessment of any concerning symptoms [facility] Evaluation note Diagnosis Onset Date CAD (coronary artery disease) acute CKD (chronic kidney disease) stage 3, GFR 30-59 ml/min acute Hyperlipidemia acute [id number] acute Secondary hyperparathyroidism acute [facility] Work Phone: Evaluation note* Diagnosis Onset Date Resolution Status CAD (coronary artery disease) acute CKD (chronic kidney disease) stage 3, GFR 30-59 ml/min acute Hyperlipidemia acute [id number] acute Secondary hyperparathyroidism acute CAD (coronary artery disease) acute CKD (chronic kidney disease) stage 3, GFR 30-59 ml/min acute Hyperlipidemia acute [id number] acute Hyperuricemia acute Hypomagnesemia acute MGUS (monoclonal gammopathy of unknown significance) acute Secondary hyperparathyroidism acute [facility] Work Phone: Summary Purpose Family History No [...] disease) stage 3, GFR 30-59 ml/min Hyperlipidemia [id number] Secondary hyperparathyroidism Chief Complaint RENAL CKD / RENAL FA ILURE 6 week follow up Reason for Visit CAD (coronary artery disease) CKD (chronic kidney disease) stage 3, GFR 30-59 ml/min Hyperlipidemia [id number] Secondary hyperparathyroidism CAD (coronary artery disease) CKD (chronic kidney disease) stage 3, GFR 30-59 ml/min Hyperlipidemia [id number] Hyperuricemia Hypomagnesemia MGUS (monoclonal gammopathy of unknown significance) Secondary hyperparathyroidism Additional Source Comments INFORMATION SOURCE (unrecogn ized section and content) DATE CREATED AUTHOR 01/01/2018 [facility] DATE CREATED AUTHOR AUTHOR'S ORGANIZ ATION 07/22/2022 [facility] DATE CREATED AUTHOR AUTHOR'S ORGANIZ ATION 12/04/2023 [facility] Care Teams (unrecognized sec tion [...] BE BASED ON THE PRIMARY CLINICAL RECORDS. [facility] [facility]. provides no warranty or guarantee of the accuracy or completeness of information in this document.
[2024-06-27 08:40] LABS: Basophils Percent Auto 0.2 % (0.2-2.0); Eosinophils Absolute Auto 0.2 10^3/uL (0.0-0.7); Eosinophils Percent Auto 1.2 % (0.9-7.0); Hematocrit 35.8 % (36.0-48.0); Hemoglobin 11.8 g/dL (12.0-16.0); Immature Granulocytes Abs Auto 0.05 10^3/uL (0.00-0.03); Immature Granulocytes Pct Auto 0.4 % (0.0-0.5); Lymphocytes Percent Auto 16.1 % (20.5-60.0); Mean Corpuscular Hemoglobin 29.3 pg (26.7-34.0); Mean Corpuscular Volume 88.8 fL (81.0-99.0); Monocytes Absolute Auto 1.2 10^3/uL (0.3-0.8); Monocytes Percent Auto 9.3 % (1.7-12.0); Neutrophils Absolute Auto 9.2 10^3/uL (1.4-6.5); Neutrophils Percent Auto 72.8 % (43.0-75.0); Platelet Count 191 10^3/uL (150-450); Red Blood Count 4.03 10^6/uL (4.20-5.40); Red Cell Distribution Width 12.8 % (11.0-15.0); White Blood Count 12.7 10^3/uL (4.0-11.0)
[2024-06-27 09:37] LABS: Estimated Average Glucose 126 mg/dL
[2024-06-27 09:58] LABS: Alanine Aminotransferase 12 U/L (14-59); Albumin Globulin Ratio 0.7; Albumin Level 2.7 g/dL (3.4-5.0); Alkaline Phosphatase 126 U/L (46-116); Anion Gap 12.2; Aspartate Amino Transferase 10 U/L (15-37); BUN Creatinine Ratio 13.3; Bilirubin Total 0.6 mg/dL (0.2-1.0); Calcium 8.5 mg/dL (8.5-10.1); Carbon Dioxide 27.3 mmol/L (21.0-32.0); Chloride 104 mmol/L (98-107); Chol HDL Ratio 2.1; Cholesterol 122 mg/dL (<=200); Estimated GFR (African America 24 (>=60 mL/min/1.73m^2); Estimated GFR (Non-African Ame 20 (>=60 mL/min/1.73m^2); Free T3 1.64 pg/mL (2.18-3.98); Glucose 164 mg/dL (74-106); HDL Cholesterol 57 mg/dL (40-60); LDL Cholesterol Calculated 48.8 mg/dL; Potassium 4.5 mmol/L (3.5-5.1); Sodium 139 mmol/L (136-145); Thyroid Stimulating Hormone 0.008 uIU/mL (0.358-3.740); Total Protein 6.7 g/dL (6.4-8.2); Triglycerides 81 mg/dL (<=150); VLDL CHOLESTEROL 16.2 mg/dL
== END 2024-06-27 08:11 | disposition home or self-care (01) ==
PROVIDERS: PCP Family Medicine; Visit Provider Family Medicine
DX: D64.9 Anemia, unspecified (principal); J44.9 Chronic obstructive pulmonary disease, unspecified; J20.9 Acute bronchitis, unspecified; E78.5 Hyperlipidemia, unspecified; E11.9 Type 2 diabetes mellitus without complications; E03.9 Hypothyroidism, unspecified
CPT/HCPCS: 36415; 80053; 80061; 83036; 83540; 84436; 84443; 84481; 85025

== ENCOUNTER 2024-07-04 08:59 | Outpatient (OUT) | payer MEDICARE, SELFPAY ==
--- NOTE | 2024-07-04 09:01 | US_ITS ---
[place] [id number] Patient Name: MYRIAM GARCIA MRN: [id number] date: 1960 Sex: F Assigned Patient Location: [place] Current Patient Location: [place] Accession/Order Number: [id number] Exam Date: 07/04/2024 10:27 Report Date: 07/04/2024 10:28 At the request of: YONY GOODE MD Procedure: US renal BI BILATERAL RENAL AND BLADDER ULTRASOUND CLINICAL HISTORY: Acute Kidney Failure COMPARISON: None FINDINGS: Estimation of renal size is approximately 8.3 cm on the right and 7.8 cm on the left. No contour deforming mass, shadowing stone or hydronephrosis. The urinary bladder is partially distended with a volume of 26 ml. No shadowing stone or focal lesion. US/US renal BI IMPRESSION: No acute findings. Impression dictated by: Olu Lam Jr., DNaomiONaomi 07/04/2024 10:28 AM Dictation Location: [place] [address] Electronically authenticated by: [id number] Date: 07/04/2024 10:28
== END 2024-07-04 09:00 | disposition home or self-care (01) ==
LOC: US 08:59
PROVIDERS: PCP Family Medicine; Visit Provider Family Medicine
DX: N17.9 Acute kidney failure, unspecified (principal)
CPT/HCPCS: 76775

== ENCOUNTER 2024-09-03 10:36 | Outpatient (RCR) | payer MEDICARE, MEDICAID, SELFPAY ==
[2024-08-19 12:46] LABS: Basophils Absolute Auto 0.1 10^3/uL (0.0-0.1); Basophils Percent Auto 0.6 % (0.2-2.0); Eosinophils Absolute Auto 0.2 10^3/uL (0.0-0.7); Eosinophils Percent Auto 2.6 % (0.9-7.0); Hematocrit 35.3 % (36.0-48.0); Hemoglobin 11.9 g/dL (12.0-16.0); Immature Granulocytes Abs Auto 0.04 10^3/uL (0.00-0.03); Immature Granulocytes Pct Auto 0.4 % (0.0-0.5); Lymphocytes Percent Auto 21.4 % (20.5-60.0); Mean Corpuscular HGB Conc 33.7 g/dL (29.9-35.2); Mean Corpuscular Hemoglobin 29.2 pg (26.7-34.0); Mean Corpuscular Volume 86.7 fL (81.0-99.0); Monocytes Absolute Auto 0.7 10^3/uL (0.3-0.8); Monocytes Percent Auto 7.8 % (1.7-12.0); Neutrophils Absolute Auto 6.2 10^3/uL (1.4-6.5); Neutrophils Percent Auto 67.2 % (43.0-75.0); Platelet Count 226 10^3/uL (150-450); Red Blood Count 4.07 10^6/uL (4.20-5.40); White Blood Count 9.3 10^3/uL (4.0-11.0)
[2024-08-19 13:41] LABS: Percent Iron Saturation 24.2 %
[2024-08-19 13:43] LABS: Alanine Aminotransferase 12 U/L (14-59); Albumin Globulin Ratio 0.7; Alkaline Phosphatase 171 U/L (46-116); Aspartate Amino Transferase 10 U/L (15-37); BUN Creatinine Ratio 13.4; Bilirubin Total 0.4 mg/dL (0.2-1.0); C Reactive Protein 1.89 mg/dL (<=0.50); Calcium 9.6 mg/dL (8.5-10.1); Carbon Dioxide 28.9 mmol/L (21.0-32.0); Chloride 103 mmol/L (98-107); Estimated GFR (African America 40 (>=60 mL/min/1.73m^2); Estimated GFR (Non-African Ame 33 (>=60 mL/min/1.73m^2); Globulin 4.4 g/dL; Glucose 71 mg/dL (74-106); Potassium 3.9 mmol/L (3.5-5.1); Sodium 139 mmol/L (136-145); Total Protein 7.4 g/dL (6.4-8.2)
[2024-08-19 14:23] LABS: Erythrocyte Sedimentation Rate 71 mm/hr (<=30)
[2024-08-21 15:08] LABS: Albumin 3.3 g/dL (2.9-4.4); Alpha-1-Globulin 0.3 g/dL (0.0-0.4); Free Kappa Lt Chains,S 53.4 mg/L (3.3-19.4); Free Lambda Lt Chains,S 56.4 mg/L (5.7-26.3); Gamma Globulin 1.1 g/dL (0.4-1.8); Immunoglobulin A, Qn, Serum 318 mg/dL (87-352); Immunoglobulin G, Qn, Serum 1169 mg/dL (586-1602); Immunoglobulin M, Qn, Serum 151 mg/dL (26-217); Kappa/Lambda Ratio,S 0.95 (0.26-1.65); Protein, Total 6.9 g/dL (6.0-8.5)
[2024-08-24 07:07] LABS: Immunoglobulin E, Total 87 IU/mL (6-495)
[2024-08-27 13:53] VITALS: BP 174/68; PULSE 55; TEMP 36.4; O2SAT 95
[2024-08-27] MEDS: FERUMOXYTOL 510 MG in 0.9 % SODIUM CHLORIDE 100 ML 234 MG IV (14:06)
[2024-09-03 13:20] VITALS: BP 184/65; PULSE 62; TEMP 36.6; O2SAT 96
[2024-09-03] MEDS: FERUMOXYTOL 510 MG in 0.9 % SODIUM CHLORIDE 100 ML 234 MG IV (13:32)
== END 2024-09-08 23:59 | disposition home or self-care (01) ==
LOC: HEMC 10:36
PROVIDERS: PCP Family Medicine; Visit Provider Internal Medicine Hematology & Oncology
DX: E79.0 Hyperuricemia without signs of inflammatory arthritis and tophaceous disease (principal); D47.2 Monoclonal gammopathy; D50.9 Iron deficiency anemia, unspecified; K90.9 Intestinal malabsorption, unspecified; G35 Multiple sclerosis; E11.22 Type 2 diabetes mellitus with diabetic chronic kidney disease; I12.9 Hypertensive chronic kidney disease with stage 1 through stage 4 chronic kidney disease, or unspecified chronic kidney disease; N18.30 Chronic kidney disease, stage 3 unspecified; I25.10 Atherosclerotic heart disease of native coronary artery without angina pectoris; F17.210 Nicotine dependence, cigarettes, uncomplicated; M54.50 Low back pain, unspecified; E11.40 Type 2 diabetes mellitus with diabetic neuropathy, unspecified
CPT/HCPCS: 36415; 80053; 82728; 82784; 82785; 83521; 83540; 83550; 84155; 84165; 85025; 85652; 86140; 86334; 96365; G0463; Q0138

== ENCOUNTER 2024-09-11 11:17 | Outpatient (OUT) | payer MEDICARE, MEDICAID, SELFPAY ==
--- OUTSIDE RECORDS SUMMARY | 2024-08-19 07:30 | XMS_ITS ---
Author Organization The [facility] in [place] Address [address] [place] [address] Care Team Providers Care Go Go Dancer Name Role Phone Zaire Teague Primary Care Provider Romi Armijo Unavailable [phone] REASON FOR VISIT MD Encounters Encounter Location Date Provider Diagnosis [facility] [address] [place] [address] 08/19/2024 Romi Armijo Plan Of Treatment Next Appt Details Provider Name:Romi Armijo , 11/18/2024 11:30:00 AM, [address] [place], [address], Progress Notes * Deepthi PANTOJADOB:1960 (64 yo F)Acc No.[id number]:08/19/2024 UNLOCKED PROGRESS NOTE Progress Notes Patient: Mich IBANEZ Deepthi Provider: Rivka Armijo M.D. :1960 A ge:64 Y S ex:Female Date:08/19/2024 Address:[address] [place] [address], [place] Pcp:Zaire Teague Subjective: * Chief Complaints: * 1 . MD. * Medical History: Objective: * Vitals: Assessment: Plan: * Treatment: * * Electronic signature of Dinh Armijo MD, [id number] on 09/11/2024 at 11:06 AM EDT Sign off status: Pending Visit Status: Tam SPARROW (Voice) * Provider: Rivka Armijo M.D. Date: 0 08/19/2024 Generated for Roosevelt hatch/Hao/Jaime on: 0 09/11/2024 11:06 AM EDT
--- OUTSIDE RECORDS SUMMARY | 2024-08-27 10:00 | XMS_ITS ---
Author Organization The [facility] in [place] Address [address] [place] [address] Care Team Providers Care Hydro Plant Operator Name Role Phone Zaire Teague Primary Care Provider [phone] Romi Armijo Unavailable [phone] REASON FOR VISIT CL1 Encounters Encounter Location Date Provider Diagnosis [facility] On[facility] [address] [place] [address] 08/27/2024 Romi Armijo Plan Of Treatment Next Appt Details Provider Name:Romi Armijo , 11/18/2024 11:30:00 AM, [address] [place] [address], [address], Progress Notes * Deepthi PANTOJADOB:1960 (64 yo F)Acc No.[id number]:08/27/2024 UNLOCKED PROGRESS NOTE Progress Note Patient: Mich IBANEZDeepthi Provider: Rivka Armijo M.D. :1960 A ge:64 Y S ex:Female Date:08/27/2024 Address:[address] [place] [address], [place] Pcp:Zaire Teague Subjective: * Chief Complaints: * 1 . CL1. * Medical History: Objective: * Vitals: Assessment: Plan: * Treatment: * * Electronic signature of Dinh Armijo MD, [id number] on 09/11/2024 at 11:07 AM EDT Sign off status: Pending Visit Status: P EN (Pending) * Provider: Rivka Armijo M.D. Date: 0 08/27/2024 Generated for Roosevelt hatch/Hao/Jaime on: 0 09/11/2024 11:07 AM EDT
--- OUTSIDE RECORDS SUMMARY | 2024-09-03 10:00 | XMS_ITS ---
Author Organization The [facility] in [place] Address [address] [place] [address] Care Team Providers Care Turret Lathe Operator Name Role Phone Zaire Teague Primary Care Provider [phone] Romi Armijo Unavailable [phone] REASON FOR VISIT CL1 Encounters Encounter Location Date Provider Diagnosis [facility] [address] [place] [address] 09/03/2024 Romi Armijo Plan Of Treatment Next Appt Details Provider Name:Romi Armijo , 11/18/2024 11:30:00 AM, [address] [place] [address], [address], Progress Notes * Deepthi PANTOJADOB:1960 (64 yo F)Acc No.[id number]:09/03/2024 UNLOCKED PROGRESS NOTE Progress Note Patient: Mich IBANEZDeepthi Provider: Rivka Armijo M.D. :1960 A ge:64 Y S ex:Female Date:09/03/2024 Address:[address] [place] [address], [place] Pcp:Zaire Teague Subjective: * Chief Complaints: * 1 . CL1. * Medical History: Objective: * Vitals: Assessment: Plan: * Treatment: * * Electronic signature of Dinh Armijo MD, [id number] on 09/11/2024 at 11:07 AM EDT Sign off status: Pending Visit Status: P EN (Pending) * Provider: iRvka Armijo M.D. Date: 0 09/03/2024 Generated for Roosevelt hatch/Hao/Jaime on: 0 09/11/2024 11:07 AM EDT
--- OUTSIDE RECORDS SUMMARY | 2024-09-11 11:21 | XMS_ITS | Patient Health Record ---
Author Organization [facility] in [place] Address [address] [place] [address] Care Team Providers Care Trim Technician Name Role Phone Zahida Zaire Primary Care Provider Kailash Armijo Unavailable [phone] YONY TEAGUE Unavailable [phone] Allergies Allergen (clinical drug ingredient) Drug/Non Drug Allergy documented on EMR Reaction Allergy Type Onset Date Status rosuvastatin Crestor muscle aches Drug Allergy A ctive Penicillin hives Drug Allergy Active Results Component Value Reference Range Notes DE by IFA Reviewed date:09/27/2023 08:11:32 PM Interpretation: Performing Lab: Notes/Report: [facility] , Antinuclear Antibodies, IFA Positive . Negative <1:80 Borderline 1:80 Positive >1:80 Homogeneous Pattern TNP . Nucleolar Pattern 1:160 . ICAP nomen clature: AC-8,9,10 Speckled Pattern 1:320 . ICAP nomenc lature: AC-2,4,5,29 Centromere Pattern TNP . Spindle Apparatus Pattern TNP . Nuclear Membrane Pattern TNP . Midbody Pattern TNP . Nuclear Dot Pattern TNP . PCNA Pattern TNP . Centriole Pattern TNP . Note: Comment . Pattern Potential Disease Association Homogeneous Systemic Lupus Erythematosus, Drug Induced Systemic Lupus Erythematosus, Chronic Autoimmune hepatitis, Juvenile Idiopathic Arthritis Speckled Sjogren Syndrome, Systemic Lupus Erythematosus, Subacute Cutaneous Lupus, Lupus, Congenital Heart Block, Mixed Connective Tissue Disease, Scleroderma-diffuse, Scleroderma-Autoimmune Myositis Overlap Syndrome, Systemic Lupus Erythematosus-Scleroder ma-Autoimmune Myositis Overlap Syndrome, Systemic Autoimmune Rheumatic Disease, Undifferentiated Connective Tissue Disease Nucleolar Systemic Sclerosis, Scleroderma-Autoimmune Myositis Overlap Syndrome, Sjogren Syndrome, Raynaud phenomenon, Pulmonary Arterial Hypertension, Systemic Autoimmune Rheumatic Disease, Cancer Centromere Scleroderma-CREST, Limited Cutaneous SSc, Raynaud's Phenomenon, Primary Biliary Cholangitis Nuclear Dot Primary Biliary Cholangitis Nuclear Primary Biliary Cholangitis, Autoimmune Membrane Hepatitis/Liver disease, Systemic Autoimmune Rheumatic Disease, Autoimmune Cytopenias, Linear Scleroderma, Antiphospholipid Syndrome Performed at: [address] [id number] Proposal Consultant: Lex Munguia PhD, Phone: [phone] Performing Lab: see note [facility] VITAMIN D 25 [place] Reviewed date:09/25/2023 08:35:25 PM Interpretation: Performing Lab: Notes/Report: [facility] , Vitamin D 21.8 <20 ng/mL Vit D deficient 20-<30 ng/mL Vit D insufficient 30-100 ng/mL Vit D sufficient >100 ng/mL Potential Toxicity Performing Lab: see note [facility] CBC no Diff (Hemogram) Reviewed date:09/25/2023 08:35:25 PM Interpretation: Performing Lab: Notes/Report: [facility] , White Blood Count 7.7 4.0-11.0 10 3/uL Red Blood Count 4.26 4.20-5.40 10 6/uL Hemoglobin 13.1 12.0-16.0 g/dL Hematocrit 38.8 36.0-48.0 % Mean Corpuscular Volume 91.1 81.0-99.0 fL Mean Corpuscular Hemoglobin 30.8 26.7-34.0 pg Mean Corpuscular HGB Conc 33.8 29.9-35.2 g/dL Red Cell Distribution Width 13.7 11.0-15.0 % Platelet Count 215 150-450 10 3/uL Mean Platelet Volume 11.9 9.5-13.5 fL Performing Lab: see note [facility] PTH, Intact Reviewed date:09/26/2023 06:58:20 PM Interpretation: Performing Lab: Notes/Report: [facility] , PTH, Intact 98 15-65 pg/mL Performed at: [address] [id number] Proposal Consultant: Lex Munguia PhD, Phone: [phone] Performing Lab: see note [facility] LB ANCA Profile Reviewed date:09/27/2023 08:11:32 PM Interpretation: Performing Lab: Notes/Report: [facility] , Anti-MPO Antibodies <0.2 0.0-0.9 units Anti-PR3 Antibodies <0.2 0.0-0.9 units Cytoplasmic (C-ANCA) <1:20 Neg:<1:20 titer Perinuclear (P-ANCA) <1:20 Neg:<1:20 titer The presence of positive fluorescence exhibiting P-ANCA or C-ANCA patterns alone is not specific for the diagnosis of Marnie's Granulomatosis (WG) or microscopic polyangiitis. Decisions about treatment should not be based solely on ANCA IFA results. The International ANCA Group Consensus recommends follow up testing of positive sera with both TX- 3 and MPO-ANCA enzyme immunoassays. As many as 5% serum samples are positive only by EIA. Ref. AM J Clin Pathol 1999;111:507-513. Atypical pANCA <1:20 Neg:<1:20 titer The atypical pANCA pattern has been observed in a significant percentage of patients with ulcerative colitis, primary sclerosing cholangitis and autoimmune hepatitis. Performed at: [address] [id number] Proposal Consultant: Sam Tolbert MD, Phone: [phone] Performed at: [address] [id number] Proposal Consultant: Lex Munguia PhD, Phone: [phone] Performing Lab: see note [facility] LB CRP Reviewed date:02/04/2024 02:16:43 PM Interpretation: Performing Lab: Notes/Report: [facility] , C Reactive Protein 0.71 <=0.50 mg/dL Performing Lab: see note [facility] LB Anti-CCP Ab, IgG/IgA Reviewed date:02/04/2024 02:16:43 PM Interpretation: Performing Lab: Notes/Report: [facility] , Anti-CCP Ab, IgG/IgA 5 0-19 units Negative <20 Weak positive 20 - 39 Moderate positive 40 - 59 Strong positive >59 Performed at: [address] [id number] Proposal Consultant: Lex Munguia PhD, Phone: [phone] Performing Lab: see note [facility] LB HLA B 27 Disease Association Reviewed date:02/04/2024 02:16:43 PM Interpretation: Performing Lab: Notes/Report: [facility] , HLA B 27 Disease Association Negative . HLA-B*27 Negative B27 allele interpretation for all loci based on IMGT/HLA database version 3.51.0 This test was developed and its performance characteristics determined by [employer]. It has not been cleared or approved by the Food and Drug Administration. HLA Lab CLIA ID Number [id number] This test was performed using Polymerase Chain Reaction (PCR) and Sequence Specific Oligonucleotide Probes (SSOP) technique. Sequence Based Typing (SBT) may be used as a supplemental method when necessary. If you have questions, please call [facility] customer service at or email at [email or web address]. Performed at: [address] [id number] Proposal Consultant: Leighann Mendez PhD, Phone: [phone] Performing Lab: see note - [facility] LB CA echo doppler complete Reviewed date:12/13/2023 08:35:32 PM Interpretation: Performing Lab: Notes/Report: Source Facility: [place] [address] Cardiology Report Signed Patient: DEEPTHI PANTOJA MR#: [id number] : 1960 Acct:[id number] Age/Sex: 63 / F ADM Date: 12/13/23 Loc: CARD Attending Dr: Prema Rob M.D. Ordering Physician: Prema Rob M.D. Date of Service: 12/13/23 Procedure(s): CA echo doppler complete Accession Number(s): [id number] cc: Prema Rob M.D.; Yony Teague M.D. Patient Name: DEEPTHI PANTOJA MR#: [id number] : 1960 Exam Date: 12/13/2023 Ordering Doctor: DR PREMA ROB M.D. ECHOCARDIOGRAM REPORT PROCEDURE: CA ECHO DOPPLER COMPLETE INDICATIONS: Mitral valve regurgitation COMPARISON: None. DESCRIPTION: COMPLETE ECHOCARDIOGRAM Real-time transthoracic echocardiography with 2D, M-mode, spectral and color flow Doppler performed. QUALITY: Technical quality was good. LEFT VENTRICLE: Normal chamber size. Moderate concentric left ventricular hypertrophy. Global left ventricular systolic function is normal. LV EF: Visual estimation of left ventricular ejection fraction is 65-70% DIASTOLIC: Grade I diastolic dysfunction. ATRIAL SEPTUM: LEFT ATRIUM: Normal chamber size. RIGHT ATRIUM: Normal chamber size. RIGHT VENTRICLE: Normal chamber size. Normal right ventricular systolic function. TRICUSPID VALVE: Normal mobility and thickness. No stenosis with trivial regurgitation. No evidence of pulmonary hypertension. RVSP 31 mmHg MITRAL VALVE: Normal mobility and thickness. No evidence of mitral valve stenosis. There is no mitral annular calcification. Trivial mitral regurgitation. AORTIC VALVE: Normal trileaflet appearance. No visible sclerosis. Normal leaflet mobility. No evidence of aortic valve stenosis. No aortic regurgitation. AORTIC ROOT: Normal diameter and appearance. PULMONIC VALVE: Normal thickness and mobility. No stenosis. Trivial regurgitation. PERICARDIUM: No evidence of pericardial effusion. IVC: Collapses with inspirations. Normal size. PLEURA: CONCLUSION: 1. Moderate concentric left ventricular hypertrophy with normal systolic function. LVEF is estimated at 65 to 70%. 2. Normal right ventricular size and systolic function. 3. Mild diastolic dysfunction. 4. Normal left atrial size. 5. No significant valvular dysfunction. 6. Normal right-sided pressures. Adult Echocardiography Procedure Report Left Ventricle LVEDD (3.7 - 5.6 cm): 3.76 cm LVESD (2.2 - 4.0 cm): 2.48 cm LVIVS thickness (0.6 - 1.2 cm): 1.49 cm LVPW thickness (0.5 - 1.0 cm): 1.23 cm e': 0.04 m/s E - e': 12.89 LVOT Max Gradient: 2.18 mm[Hg] LVOT Area (cm2): 0.74 m/s Peak Velocity (LVOT): 0.74 m/s Mean Velocity (LVOT): 0.50 m/s LVOT Diameter 1.64 cm Left Ventricular Ejection Fraction: 65-70 % Left Atrium LA Volume Index (2D A2C): 33.40 ml/m2 Left Atrium Systolic Dimension: 3.67 cm Mitral Valve MV E to A Ratio: 0.70, 0.63 Mitral Valve A-Wave Peak Velocity: 0.72 m/s Mitral Valve E-Wave Peak Velocity: 0.47 m/s Right Ventricle RV Internal Diastolic Dimension: 2.54 cm Aorta AO Root Diam: 2.58 cm Ascending Ao Diam: 2.75 cm Aortic Valve AoV Area (Peak Ajay): 1.21 cm2, 1.21 cm2 AoV Area (VTI): 1.33 cm2, 1.33 cm2 Peak Velocity(Antegrade Flow): 1.28 m/s Peak Gradient(Antegrade Flow): 6.56 mm[Hg] Mean Velocity(Antegrade Flow): 0.82 m/s Mean Gradient(Antegrade Flow): 3.13 mm[Hg] Velocity Time Integral: 28.56 cm Tricuspid Valve Peak Velocity (Regurgitant Flow): 2.53 m/s, 2.08 m/s, 2.67 m/s Pulmonic Valve Mean Gradient: 1.97 mm[Hg], 2.31 mm[Hg] Mean Velocity: 0.65 m/s, 0.71 m/s Peak Velocity: 0.98 m/s Peak Gradient: 3.50 mm[Hg], 4.20 mm[Hg] Right Atrium Right Atrium Systolic Pressure: 23.51 ml, 23.51 ml Dictated by: Luis Mancilla M.D. on 12/13/2023 at 17:55 Approved by: Luis Mancilla M.D. on 12/13/2023 at 18:01 Dictated By: LUIS MANCILLA Signed By: 12/13/231802 DD/ 01 TD/TT: Junior Recruiter: [place] [address] Cardiology Report Signed Patient: LORETTA PANTOJA MR#: [id number] : 1960 Acct:[id number] Age/Sex: 63 / F ADM Date: 12/13/23 Loc: CARD Attending Dr: Prema Rob M.D. Ordering Physician: Prema Rob M.D. Date of Service: 12/13/23 Procedure(s): CA ech o doppler complete Accession Number(s): [id number] cc: Prema Rob; Yony Teague M.D. Patient Name: DEEPTHI PANTOJA MR#: [id number] : 1960 Exam Date: 12/13/2023 Ordering Doctor: DR PREMA ROB M.D. ECHOCARDIOGRAM REPORT PROCEDURE: CA ECHO DOPPLER COMPLETE INDICATIONS: Mitral valve regurgitation COMPARISON: None. DESCRIPTION: COMPLET E ECHOCARDIOGRAM Real-time transthoracic echocardiography wit h 2D, M-mode, spectral and color flow Doppler performed. QUALITY: Technical quality was good. LEFT VENTRICLE: Norm al chamber size. Moderate concentric left ventricular hypertrophy. Global left ventricular systolic function is normal. LV EF: Visual estimation of left ventricular ejection fraction is 65-70% DIASTOLIC: Grade I diastolic dysfunction. ATRIAL SEPTUM: LEFT ATRIUM: Normal chamber size. RIGHT ATRIUM: Normal chamber size. RIGHT VENTRICLE: Nor mal chamber size. Normal right ventricular systolic function. TRICUSPID VALVE: [place] mal mobility and thickness. No stenosis with trivial regurgitation. No evidence of pulmonary hypertension. RVSP 31 mmHg MITRAL VALVE: Normal mobility and thickness. No evidence of mitral valve stenosis. There is n o mitral annular calcification. Trivial mitral regurgitation. AORTIC VALVE: Normal trileaflet appearance. No visible sclerosis. Normal leaflet mobility. No evidence of aortic valve stenosis. No aortic regurgitation. AORTIC ROOT: Normal diameter and appearance. PULMONIC VALVE: Norm al thickness and mobility. No stenosis. Trivial regurgitation. PERICARDIUM: No evidence of pericardial effusion. IVC: Collapses with inspirations. Normal size. PLEURA: CONCLUSION: 1. Moderate concentr ic left ventricular hypertrophy with normal systolic function. LVEF is estimated at 65 to 70%. 2. Normal right ventricular size and systolic function. 3. Mild diastolic dysfunction. 4. Normal left atria l size. 5. No significant valvular dysfunction. 6. Normal right-side d pressures. Adult Echocardiograp hy Procedure Report Left Ventricle LVEDD (3.7 - 5.6 cm) : 3.76 cm LVESD (2.2 - 4.0 cm) : 2.48 cm LVIVS thickness (0.6 - 1.2 cm): 1.49 cm LVPW thickness (0.5 - 1.0 cm): 1.23 cm e': 0.04 m/s E - e': 12.89 LVOT Max Gradient: 2 .18 mm[Hg] LVOT Area (cm2): 0.7 4 m/s Peak Velocity (LVOT) : 0.74 m/s Mean Velocity (LVOT) : 0.50 m/s LVOT Diameter 1.64 cm Left Ventricular Ejection Fraction: 65-70 % Left Atrium LA Volume Index (2D A2C): 33.40 ml/m2 Left Atrium Systolic Dimension: 3.67 cm Mitral Valve MV E to A Ratio: 0.7 0, 0.63 Mitral Valve A-Wave Peak Velocity: 0.72 m/s Mitral Valve E-Wave Peak Velocity: 0.47 m/s Right Ventricle RV Internal Diastoli c Dimension: 2.54 cm Aorta AO Root Diam: 2.58 cm Ascending Ao Diam: 2 .75 cm Aortic Valve AoV Area (Peak Ajay): 1.21 cm2, 1.21 cm2 AoV Area (VTI): 1.33 cm2, 1.33 cm2 Peak Velocity(Antegr aubrey Flow): 1.28 m/s Peak Gradient(Antegr aubrey Flow): 6.56 mm[Hg] Mean Velocity(Antegr aubrey Flow): 0.82 m/s Mean Gradient(Antegr aubrey Flow): 3.13 mm[Hg] Velocity Time Integr al: 28.56 cm Tricuspid Valve Peak Velocity (Regurgitant Flow): 2.53 m/s, 2.08 m/s, 2.67 m/s Pulmonic Valve Mean Gradient: 1.97 mm[Hg], 2.31 mm[Hg] Mean Velocity: 0.65 m/s, 0.71 m/s Peak Velocity: 0.98 m/s Peak Gradient: 3.50 mm[Hg], 4.20 mm[Hg] Right Atrium Right Atrium Systoli c Pressure: 23.51 ml, 23.51 ml Dictated by: Luis Mancilla M.D. on 12/13/2023 at 17:55 Approved by: Luis Mancilla M.D. on 12/13/2023 at 18:01 Dictated By: LUIS MANCILLA Signed By: 12/13/231802 DD/ 01 TD/TT: Junior Recruiter: EDITH RITCHIE W or MICROSCOPIC Reviewed date:02/04/2024 02:16:42 PM Interpretation: Performing Lab: Notes/Report: [facility] , Color Urine LT. YELLOW YELLOW Clarity Urine CLEAR CLEAR Specific [place] Urine 1.025 1.005-1.025 pH Urine 6.0 5.0-9.0 Protein Urine TRACE NEG/TRACE mg/dL Glucose Urine UA NEGATIVE NEGATIVE mg/dL Bilirubin Urine NEGATIVE NEGATIVE Ketones Urine NEGATIVE NEGATIVE mg/dL Blood Urine NEGATIVE NEGATIVE Nitrite Urine NEGATIVE NEGATIVE Urobilinogen Urine 0.2 0.2-1.0 EU/dL Leukocyte Esterase Urine NEGATIVE NEGATIVE WBC Urine 0-2 NONE SEEN #/HPF RBC Urine 0-2 0-2 #/HPF Bacteria Urine TRACE NONE SEEN #/HPF Mucus Urine NONE SEEN NONE SEEN Squamous Epithelial Cell Urine RARE NONE/RARE #/LPF Crystals Seen? None Seen None Seen #/HPF Cast Seen? NONE SEEN NONE SEEN #/LPF Performing Lab: see note ML - [facility] LB URIC ACID SERUM Reviewed date:02/04/2024 02:16:42 PM Interpretation: Performing Lab: Notes/Report: [facility] , Uric Acid 6.9 2.6-6.0 mg/dL Performing Lab: see note - [facility] LB URINE T PROTEIN CREAT RATIO Reviewed date:02/04/2024 02:16:42 PM Interpretation: Performing Lab: Notes/Report: [facility] , Total Protein Urine Random 36.9 <=11.9 mg/dL Creatinine Urine Random 137.32 20.00-30 0.00 mg/dL Protein Creatinine Ratio Urine 0.27 Performing Lab: see note ML - [facility] LB VITAMIN D 25 [place] Reviewed date:02/04/2024 02:16:42 PM Interpretation: Performing Lab: Notes/Report: [facility] , Vitamin D 41.1 <20 ng/mL Vit D deficient 20-<30 ng/mL Vit D insufficient 30-100 ng/mL Vit D sufficient >100 ng/mL Potential Toxicity Performing Lab: see note - [facility] LB CBC AUTO DIFF Reviewed date:06/28/2024 11:53:33 AM Interpretation: Performing Lab: Notes/Report: [facility] , White Blood Count 8.4 4.0-11.0 10 3/uL Red Blood Count 4.13 4.20-5.40 10 6/uL Hemoglobin 12.3 12.0-16.0 g/dL Hematocrit 37.8 36.0-48.0 % Mean Corpuscular Volume 91.5 81.0-99.0 fL Mean Corpuscular Hemoglobin 29.8 26.7-34.0 pg Mean Corpuscular HGB Conc 32.5 29.9-35.2 g/dL Red Cell Distribution Width 13.1 11.0-15.0 % Platelet Count 234 150-450 10 3/uL Mean Platelet Volume 11.3 9.5-13.5 fL Neutrophils Percent Auto 71.1 43.0-75.0 % Lymphocytes Percent Auto 20.4 20.5-60.0 % Monocytes Percent Auto 6.3 1.7-12.0 % Eosinophils Percent Auto 1.3 0.9-7.0 % Basophils Percent Auto 0.7 0.2-2.0 % Immature Granulocytes Pct Auto 0.2 0.0-0.5 % Neutrophils Absolute Auto 6.0 1.4-6.5 10 3/uL Lymphocytes Absolute Auto 1.7 1.2-3.8 10 3/uL Monocytes Absolute Auto 0.5 0.3-0.8 10 3/uL Eosinophils Absolute Auto 0.1 0.0-0.7 10 3/uL Basophils Absolute Auto 0.1 0.0-0.1 10 3/uL Immature Granulocytes Abs Auto 0.02 0.00-0.03 10 3/uL Performing Lab: see note ML - [facility] LB SINGH, PE and FLC, Serum Reviewed date:06/28/2024 11:53:33 AM Interpretation: Performing Lab: Notes/Report: [facility] , Immunoglobulin G, Qn, Serum 0956 137-3576 mg/dL Immunoglobulin A, Qn, Serum 346 87-352 mg/dL Immunoglobulin M, Qn, Serum 142 26-217 mg/dL Protein, Total 7.0 6.0-8.5 g/dL Albumin 3.5 2.9-4.4 g/dL Igasd-3-Wimjrvcj 0.3 0.0-0.4 g/dL Kwtpr-6-Xwxswzgr 0.9 0.4-1.0 g/dL Beta Globulin 1.1 0.7-1.3 g/dL Gamma Globulin 1.2 0.4-1.8 g/dL M-Chuck Comment: Not Observed g/dL Due to the small quantity of monoclonal protein, unable to quantitate the M-spike. Globulin, Total 3.5 2.2-3.9 g/dL A/G Ratio 1.1 0.7-1.7 Immunofixation Result, Serum Comment . Immunofixation shows IgG monoclonal protein with lambda light chain specificity. Please note: Comment . Protein electrophoresis scan will follow via computer, mail, or aromatherapist delivery. Free Scribner Lt Chains,S 61.6 3.3-19.4 mg/L Free Lambda Lt Chains,S 52.5 5.7-26.3 mg/L Scribner/Lambda Ratio,S 1.17 0.26-1.65 Performed at: [address] [id number] Proposal Consultant: Lex Munguia PhD, Phone: [phone] Performing Lab: see note [facility] LB FREE T3 Reviewed date:06/28/2024 11:53:33 AM Interpretation: Performing Lab: Notes/Report: [facility] , Free T3 1.64 2.18-3.98 pg/mL Performing Lab: see note ML - [facility] LB GLYCOHEMOGLOBIN A1C Reviewed date:06/28/2024 11:53:33 AM Interpretation: Performing Lab: Notes/Report: [facility] , Glycohemoglobin A1C 6.0 4.5-6.2 % ADA RECOMMENDED LIMIT 4.0 - 6.0 ADA THERAPEUTIC TARGET < 7.0 ACTION SUGGESTED > 7.0 Estimated Average Glucose 126 Performing Lab: see note ML - [facility] LB IRON Reviewed date:06/28/2024 11:53:33 AM Interpretation: Performing Lab: Notes/Report: [facility] , Iron 19.0 50.0-170.0 ug/dL Performing Lab: see note - [facility] LB LIPID PROFILE Reviewed date:06/28/2024 11:53:33 AM Interpretation: Performing Lab: Notes/Report: [facility] , Triglycerides 81 <=150 mg/dL Cholesterol 122 <=200 mg/dL HDL Cholesterol 57 40-60 mg/dL > or =60 mg/dl - LOW CARDIOVASCULAR RISK <40 mg/dl - HIGH CARDIOVASCULAR RISK LDL Cholesterol Calculated 48.8 <100 mg/dl OPTIMAL 100-129 mg/dl NEAR OR ABOVE OPTIMAL 130-159 mg/dl BORDERLINE HIGH 160-189 mg/dl HIGH >190 mg/dl VERY HIGH VLDL CHOLESTEROL 16.2 Chol HDL Ratio 2.1 3.3 - 4.4 LOW RISK 4.4 - 7.1 AVERAGE RISK 7.1 - 11.0 MODERATE RISK >11.0 HIGH RISK Performing Lab: see note ML - [facility] LB T4 Reviewed date:06/28/2024 11:53:33 AM Interpretation: Performing Lab: Notes/Report: [facility] , T4 Thyroxine 7.90 4.80-13.90 ug/dL Performing Lab: see note ML - [facility] LB TSH Reviewed date:06/28/2024 11:53:33 AM Interpretation: Performing Lab: Notes/Report: [facility] , Thyroid Stimulating Hormone 0.008 0.358-3.740 uIU/mL Performing Lab: see note ML - [facility] LB FERRITIN (Not yet reviewed b y provider) Interpretation: Performing Lab: Notes/Report: [facility] , Ferritin 99.0 8.0-252.0 ng/mL Performing Lab: see note ML - [facility] LB IRON AND TIBC (Not yet revie wed by provider) Interpretation: Performing Lab: Notes/Report: [facility] , Iron 70.0 50.0-170.0 ug/dL Total Iron Binding Capacity 289.0 250.0-450.0 ug/dL Percent Iron Saturation 24.2 Performing Lab: see note ML - [facility] LB SINGH, PE and FLC, Serum (Not yet reviewed by provider) Interpretation: Performing Lab: Notes/Report: [facility] , Immunoglobulin G, Qn, Serum 4258 211-1441 mg/dL Immunoglobulin A, Qn, Serum 318 87-352 mg/dL Immunoglobulin M, Qn, Serum 151 26-217 mg/dL Protein, Total 6.9 6.0-8.5 g/dL Albumin 3.3 2.9-4.4 g/dL Bdtyd-2-Clutzwaf 0.3 0.0-0.4 g/dL Qvupa-5-Bqlqqsss 1.0 0.4-1.0 g/dL Beta Globulin 1.2 0.7-1.3 g/dL Gamma Globulin 1.1 0.4-1.8 g/dL M-Chuck 0.3 Not Observed g/dL Globulin, Total 3.6 2.2-3.9 g/dL A/G Ratio 1.0 0.7-1.7 Immunofixation Result, Serum Comment . Immunofixation shows IgG monoclonal protein with lambda light chain specificity. Please note: Comment . Protein electrophoresis scan will follow via computer, mail, or aromatherapist delivery. Free Scribner Lt Chains,S 53.4 3.3-19.4 mg/L Free Lambda Lt Chains,S 56.4 5.7-26.3 mg/L Scribner/Lambda Ratio,S 0.95 0.26-1.65 Performed at: - [facility] [id number] Proposal Consultant: Lex Munguia PhD, Phone: [phone] Performing Lab: see note - [facility] LB Erythrocyte Sedimentation Ra te (Not yet reviewed by provider) Interpretation: Performing Lab: Notes/Report: [facility] , Erythrocyte Sedimentation Rate 71 <=30 mm/hr Performing Lab: see note ML - [facility] LB PROF 14(COMP METB) (Not yet reviewed by provider) Interpretation: Performing Lab: Notes/Report: [facility] , Sodium 139 136-145 mmol/L Potassium 3.9 3.5-5.1 mmol/L Chloride 103 98-107 mmol/L Carbon Dioxide 28.9 21.0-32.0 mmol/L Anion Gap 11.0 Glucose 71 74-106 mg/dL Blood Urea Nitrogen 21.0 7.0-18.0 mg/dL Creatinine 1.57 0.55-1.02 mg/dL Estimated GFR ( Sun 40 >=60 mL/min/1.73m 2 Estimated GFR (Non- Raquel 33 >=60 mL/min/1.73m 2 BUN Creatinine Ratio 13.4 Calcium 9.6 8.5-10.1 mg/dL Bilirubin Total 0.4 0.2-1.0 mg/dL Aspartate Amino Transferase 10 15-37 U/L Alanine Aminotransferase 12 14-59 U/L Alkaline Phosphatase 171 46-116 U/L Total Protein 7.4 6.4-8.2 g/dL Albumin Level 3.0 3.4-5.0 g/dL Globulin 4.4 Albumin Globulin Ratio 0.7 Performing Lab: see note ML - [facility] LB CRP (Not yet reviewed by pro vider) Interpretation: Performing Lab: Notes/Report: [facility] , C Reactive Protein 1.89 <=0.50 mg/dL Performing Lab: see note ML - [facility] LB CBC AUTO DIFF (Not yet revie wed by provider) Interpretation: Performing Lab: Notes/Report: [facility] , White Blood Count 9.3 4.0-11.0 10 3/uL Red Blood Count 4.07 4.20-5.40 10 6/uL Hemoglobin 11.9 12.0-16.0 g/dL Hematocrit 35.3 36.0-48.0 % Mean Corpuscular Volume 86.7 81.0-99.0 fL Mean Corpuscular Hemoglobin 29.2 26.7-34.0 pg Mean Corpuscular HGB Conc 33.7 29.9-35.2 g/dL Red Cell Distribution Width 14.0 11.0-15.0 % Platelet Count 226 150-450 10 3/uL Mean Platelet Volume 11.0 9.5-13.5 fL Neutrophils Percent Auto 67.2 43.0-75.0 % Lymphocytes Percent Auto 21.4 20.5-60.0 % Monocytes Percent Auto 7.8 1.7-12.0 % Eosinophils Percent Auto 2.6 0.9-7.0 % Basophils Percent Auto 0.6 0.2-2.0 % Immature Granulocytes Pct Auto 0.4 0.0-0.5 % Neutrophils Absolute Auto 6.2 1.4-6.5 10 3/uL Lymphocytes Absolute Auto 2.0 1.2-3.8 10 3/uL Monocytes Absolute Auto 0.7 0.3-0.8 10 3/uL Eosinophils Absolute Auto 0.2 0.0-0.7 10 3/uL Basophils Absolute Auto 0.1 0.0-0.1 10 3/uL Immature Granulocytes Abs Auto 0.04 0.00-0.03 10 3/uL Performing Lab: see note ML - [facility] US renal BI Reviewed date:07/04/2024 12:23:49 PM Interpretation: Performing Lab: Notes/Report: Source Facility: [facility]-[address] [place] [address] [place] [address] Ultrasound Report Signed Patient: DEEPTHI PANTOJA MR#: [id number] : 1960 Acct:[id number] Age/Sex: 64 / F ADM Date: 07/04/24 Loc: US Attending Dr: Yony Teague M.D. Ordering Physician: Yony Teague M.D. Date of Service: 07/04/24 Procedure(s): US renal BI Accession Number(s): [id number] cc: Yony Teague M.D. [address] [address] Patient Name: DEEPTHI PANTOJA MRN: [id number] date: 1960 Sex: F Assigned Patient Location: US Current Patient Location: US Accession/Order Number: [id number] Exam Date: 07/04/2024 10:27 Report Date: 07/04/2024 10:28 At the request of: YONY TEAGUE MD Procedure: US renal BI BILATERAL RENAL AND BLADDER ULTRASOUND CLINICAL HISTORY: Acute Kidney Failure COMPARISON: None FINDINGS: Estimation of renal size is approximately 8.3 cm on the right and 7.8 cm on the left. No contour deforming mass, shadowing stone or hydronephrosis. The urinary bladder is partially distended with a volume of 26 ml. No shadowing stone or focal lesion. US/US renal BI IMPRESSION: No acute findings. Impression dictated by: Olu Lam Jr., D.O. 07/04/2024 10:28 AM Dictation Location: [place] [address] Electronically authenticated by: [id number] Y Date: 07/04/2024 10:28 Dictated By: Olu Lam M.D. Signed By: 07/04/24 1030 DD/ 1028 TD/TT: Junior Recruiter: [place] [address] Ultrasound Report Signed Patient: LORETTA PANTOJA MR#: [id number] : 1960 Acct:[id number] Age/Sex: 64 / F ADM Date: 07/04/24 Loc: US Attending Dr: Sydni Teague M.D. Ordering Physician: Yony Teague M.D. Date of Service: 07/04/24 Procedure(s): US miracle al BI Accession Number(s): [id number] cc: Yony Teague M.D. [address] [address] Patient Name: DEEPTHI PANTOJA MRN: [id number] date: 1960 Sex: F Assigned Patient Location: Current Patient Location: US Accession/Order Numb er: [id number] Exam Date: 07/04/2024 10:27 Report Date: 07/04/2024 10:28 At the request of: YONY TEAGUE MD Procedure: US renal BI BILATERAL RENAL AND BLADDER ULTRASOUND CLINICAL HISTORY: Ac maykel Kidney Failure COMPARISON: None FINDINGS: Estimation of renal size is approximately 8.3 cm on the right and 7.8 cm on the left. No contour deforming mass, shadowing stone or hydronephrosis. The urinary bladder is partially distended with a volume of 26 ml. No shadowing stone or focal lesion. US/US renal BI IMPRESSION: No acute findings. Impression dictated by: Olu Lam Jr., D.ONaomi 07/04/2024 10:28 AM Dictation Location: [place] [address] Electronically authenticated by: [id number] Y Date: 07/04/2024 10:28 Dictated By: Olu Lam M.D. Signed By: 07/04/24 1030 DD/ 1028 TD/TT: Junior Recruiter: PROF Frederick(COMP METB) Reviewed date:06/28/2024 11:53:33 AM Interpretation: Performing Lab: Notes/Report: [facility] , Sodium 139 136-145 mmol/L Potassium 4.5 3.5-5.1 mmol/L Chloride 104 98-107 mmol/L Carbon Dioxide 27.3 21.0-32.0 mmol/L Anion Gap 12.2 Glucose 164 74-106 mg/dL Blood Urea Nitrogen 32.0 7.0-18.0 mg/dL Creatinine 2.41 0.55-1.02 mg/dL Estimated GFR ( Sun 24 >=60 mL/min/1.73m 2 Estimated GFR (Non- Raquel 20 >=60 mL/min/1.73m 2 BUN Creatinine Ratio 13.3 Calcium 8.5 8.5-10.1 mg/dL Bilirubin Total 0.6 0.2-1.0 mg/dL Aspartate Amino Transferase 10 15-37 U/L Alanine Aminotransferase 12 14-59 U/L Alkaline Phosphatase 126 46-116 U/L Total Protein 6.7 6.4-8.2 g/dL Albumin Level 2.7 3.4-5.0 g/dL Globulin 4.0 Albumin Globulin Ratio 0.7 Performing Lab: see note ML - [facility] LB CBC AUTO DIFF Reviewed date:06/28/2024 11:53:33 AM Interpretation: Performing Lab: Notes/Report: [facility] , White Blood Count 12.7 4.0-11.0 10 3/uL Red Blood Count 4.03 4.20-5.40 10 6/uL Hemoglobin 11.8 12.0-16.0 g/dL Hematocrit 35.8 36.0-48.0 % Mean Corpuscular Volume 88.8 81.0-99.0 fL Mean Corpuscular Hemoglobin 29.3 26.7-34.0 pg Mean Corpuscular HGB Conc 33.0 29.9-35.2 g/dL Red Cell Distribution Width 12.8 11.0-15.0 % Platelet Count 191 150-450 10 3/uL Mean Platelet Volume 11.0 9.5-13.5 fL Neutrophils Percent Auto 72.8 43.0-75.0 % Lymphocytes Percent Auto 16.1 20.5-60.0 % Monocytes Percent Auto 9.3 1.7-12.0 % Eosinophils Percent Auto 1.2 0.9-7.0 % Basophils Percent Auto 0.2 0.2-2.0 % Immature Granulocytes Pct Auto 0.4 0.0-0.5 % Neutrophils Absolute Auto 9.2 1.4-6.5 10 3/uL Lymphocytes Absolute Auto 2.0 1.2-3.8 10 3/uL Monocytes Absolute Auto 1.2 0.3-0.8 10 3/uL Eosinophils Absolute Auto 0.2 0.0-0.7 10 3/uL Basophils Absolute Auto 0.0 0.0-0.1 10 3/uL Immature Granulocytes Abs Auto 0.05 0.00-0.03 10 3/uL Performing Lab: see note ML - [facility] LB PROF 14(COMP METB) Reviewed date:06/28/2024 11:53:34 AM Interpretation: Performing Lab: Notes/Report: [facility] , Sodium 143 136-145 mmol/L Potassium 3.6 3.5-5.1 mmol/L Chloride 105 98-107 mmol/L Carbon Dioxide 28.8 21.0-32.0 mmol/L Anion Gap 12.8 Glucose 136 74-106 mg/dL Blood Urea Nitrogen 12.0 7.0-18.0 mg/dL Creatinine 1.52 0.55-1.02 mg/dL Estimated GFR ( Sun 42 >=60 mL/min/1.73m 2 Estimated GFR (Non- Raquel 34 >=60 mL/min/1.73m 2 BUN Creatinine Ratio 7.9 Calcium 8.9 8.5-10.1 mg/dL Bilirubin Total 0.3 0.2-1.0 mg/dL Aspartate Amino Transferase 13 15-37 U/L Alanine Aminotransferase 13 14-59 U/L Alkaline Phosphatase 148 46-116 U/L Total Protein 7.5 6.4-8.2 g/dL Albumin Level 3.2 3.4-5.0 g/dL Globulin 4.3 Albumin Globulin Ratio 0.7 Performing Lab: see note ML - [facility] LB PTH, Intact Reviewed date:02/05/2024 02:37:20 PM Interpretation: Performing Lab: Notes/Report: [facility] , PTH, Intact 59 15-65 pg/mL Performed at: - [facility] [place] [address] Proposal Consultant: Lex Munguia PhD, Phone: [phone] Performing Lab: see note - [facility] LB CBC no Diff (Hemogram) Reviewed date:02/04/2024 02:16:42 PM Interpretation: Performing Lab: Notes/Report: [facility] , White Blood Count 7.4 4.0-11.0 10 3/uL Red Blood Count 3.89 4.20-5.40 10 6/uL Hemoglobin 12.1 12.0-16.0 g/dL Hematocrit 35.7 36.0-48.0 % Mean Corpuscular Volume 91.8 81.0-99.0 fL Mean Corpuscular Hemoglobin 31.1 26.7-34.0 pg Mean Corpuscular HGB Conc 33.9 29.9-35.2 g/dL Red Cell Distribution Width 12.8 11.0-15.0 % Platelet Count 202 150-450 10 3/uL Mean Platelet Volume 11.8 9.5-13.5 fL Performing Lab: see note ML - [facility] LB RENAL FUNCTION PANEL Reviewed date:02/04/2024 02:16:42 PM Interpretation: Performing Lab: Notes/Report: [facility] , Sodium 140 136-145 mmol/L Potassium 4.1 3.5-5.1 mmol/L Chloride 104 98-107 mmol/L Carbon Dioxide 23.0 21.0-32.0 mmol/L Anion Gap 17.1 Glucose 202 74-106 mg/dL Blood Urea Nitrogen 25.0 7.0-18.0 mg/dL Creatinine 1.75 0.55-1.02 mg/dL Estimated GFR ( Sun 35 >=60 mL/min/1.73m 2 Estimated GFR (Non- Raquel 29 >=60 mL/min/1.73m 2 BUN Creatinine Ratio 14.3 Calcium 9.3 8.5-10.1 mg/dL Phosphorus 3.8 2.6-4.7 mg/dL Albumin Level 3.0 3.4-5.0 g/dL Performing Lab: see note ML - [facility] LB MAGNESIUM Reviewed date:02/04/2024 02:16:42 PM Interpretation: Performing Lab: Notes/Report: [facility] , Magnesium 1.7 1.8-2.4 mg/dL Performing Lab: see note - [facility] LB XR bone survey Reviewed date:02/04/2024 02:16:42 PM Interpretation: Performing Lab: Notes/Report: Source Facility: [facility]-[address] [place] [address] [place] [address] XRay Report Signed Patient: DEEPTHI PANTOJA MR#: [id number] : 1960 Acct:[id number] Age/Sex: 63 / F ADM Date: 11/09/23 Loc: RAD Attending Dr: Kailash Armijo M.D. Ordering Physician: Kailash Armijo M.D. Date of Service: 11/09/23 Procedure(s): XR bone survey Accession Number(s): [id number] cc: Kailash Armijo M.D.; Yony Teague M.D. [place] [address] Patient Name: DEEPTHI PANTOJA MRN: [id number] date: 1960 Sex: F Assigned Patient Location: [facility] Current Patient Location: [facility] Accession/Order Number: [id number] Exam Date: 11/09/2023 14:10 Report Date: 11/13/2023 08:10 At the request of: KAILASH ARMIJO Procedure: XR bone survey EXAMINATION: XR bone survey HISTORY: Monoclonal Gammopathy D47.2 COMPARISON: No relevant comparison available. TECHNIQUE: Two lateral projections of the skull. A lateral projection of the C-spine, T-spine and L-spine. Single view of the chest and pelvis. Single view of each humerus, forearm, femur, and tibia-fibula. FINDINGS: SKULL: No well-defined lytic lesion, periosteal reaction/thickening, fracture, or dislocation. C-SPINE: No lytic lesion, periosteal reaction/thickening, fracture, or dislocation. T-SPINE: No lytic lesion, periosteal reaction/thickening, fracture, or dislocation. L-SPINE: No lytic lesion, periosteal reaction/thickening, fracture, or dislocation. L5-S1 disc spacer. CHEST: No expansile lesion, lytic lesion, or fracture. PELVIS: No lytic lesion, periosteal reaction/thickening, fracture, or dislocation. R HUMERUS: No lytic lesion, periosteal reaction/thickening, fracture, or dislocation. R FOREARM: No lytic lesion, periosteal reaction/thickening, fracture, or dislocation. L HUMERUS: No lytic lesion, periosteal reaction/thickening, fracture, or dislocation. L FOREARM: No lytic lesion, periosteal reaction/thickening, fracture, or dislocation. R FEMUR: No lytic lesion, periosteal reaction/thickening, fracture, or dislocation. R TIB/FIB: No lytic lesion, periosteal reaction/thickening, fracture, or dislocation. L FEMUR: No lytic lesion, periosteal reaction/thickening, fracture, or dislocation. L TIB/FIB: No lytic lesion, periosteal reaction/thickening, fracture, or dislocation. SOFT TISSUES: No swelling, nodules, visible mass, or radiopaque foreign body. XR/XR bone survey IMPRESSION: 1. A few small lucencies within the calvarium, but no classic punched-out lesion. 2. No suspicious lesions within the remainder of the visualized skeletal structures. Electronically authenticated by: ALEX LEWIS Date: 11/13/2023 08:10 Dictated By: Alex Lewis M.D. Signed By: 11/13/23812 DD/ 9 TD/TT: Junior Recruiter: [place] [address] XRay Report Signed Patient: LORETTA PANTOJA MR#: [id number] : 1960 Acct:[id number] Age/Sex: 63 / F ADM Date: 11/09/23 Loc: RAD Attending Dr: Catarino Armijo M.D. Ordering Physician: Kailash Armijo M.D. Date of Service: 11/09/23 Procedure(s): XR bon e survey Accession Number(s): [id number] cc: Kailash Armijo M.D.; Yony Teague M.D. [place] [address] Patient Name: DEEPTHI PANTOJA MRN: [id number] date: 1960 Sex: F Assigned Patient Location: [facility] Current Patient Location: [facility] Accession/Order Numb er: [id number] Exam Date: 11/09/2023 14:10 Report Date: 11/13/2023 08:10 At the request of: KAILASH ARMIJO Procedure: XR bone survey EXAMINATION: XR bone survey HISTORY: Monoclonal Gammopathy D47.2 COMPARISON: No relev ant comparison available. TECHNIQUE: Two later al projections of the skull. A lateral projection of the C-spine, T-spine and L-spine. Single view of the chest and pelvis. Single view of each humerus, forearm, femur, and tibia-fibula. FINDINGS: SKULL: No well-defin ed lytic lesion, periosteal reaction/thickening, fracture, or dislocation. C-SPINE: No lytic lesion, periosteal reaction/thickening, fracture, or dislocation. T-SPINE: No lytic lesion, periosteal reaction/thickening, fracture, or dislocation. L-SPINE: No lytic lesion, periosteal reaction/thickening, fracture, or dislocation. L5-S1 d isc spacer. CHEST: No expansile lesion, lytic lesion, or fracture. PELVIS: No lytic lesion, periosteal reaction/thickening, fracture, or dislocation. R HUMERUS: No lytic lesion, periosteal reaction/thickening, fracture, or dislocation. R FOREARM: No lytic lesion, periosteal reaction/thickening, fracture, or dislocation. L HUMERUS: No lytic lesion, periosteal reaction/thickening, fracture, or dislocation. L FOREARM: No lytic lesion, periosteal reaction/thickening, fracture, or dislocation. R FEMUR: No lytic lesion, periosteal reaction/thickening, fracture, or dislocation. R TIB/FIB: No lytic lesion, periosteal reaction/thickening, fracture, or dislocation. L FEMUR: No lytic lesion, periosteal reaction/thickening, fracture, or dislocation. L TIB/FIB: No lytic lesion, periosteal reaction/thickening, fracture, or dislocation. SOFT TISSUES: No swelling, nodules, visible mass, or radiopaque foreign body. XR/XR bone survey IMPRESSION: 1. A few small lucencies within the calvarium, but no classic punched-out lesion. 2. No suspicious lesions within the remainder of the visualized skeletal structures. Electronically authenticated by: ALEX LEWIS Date: 11/13/2023 08:10 Dictated By: Alex Lewis M.D. Signed By: 11/13/2313 DD/ TD/TT: Junior Recruiter: KETURAH WINTERS and [facility], Serum Reviewed date:02/04/2024 02:16:43 PM Interpretation: Performing Lab: Notes/Report: [facility] , Immunoglobulin G, Qn, Serum 5496 981-6287 mg/dL Immunoglobulin A, Qn, Serum 340 87-352 mg/dL Immunoglobulin M, Qn, Serum 191 26-217 mg/dL Protein, Total 7.7 6.0-8.5 g/dL Albumin 3.9 2.9-4.4 g/dL Wqhiq-6-Iaxybqvn 0.2 0.0-0.4 g/dL Siego-5-Zvrflygg 1.0 0.4-1.0 g/dL Beta Globulin 1.1 0.7-1.3 g/dL Gamma Globulin 1.4 0.4-1.8 g/dL M-Chuck Comment: Not Observed g/dL SPE shows an asymmetrical gamma. Globulin, Total 3.8 2.2-3.9 g/dL A/G Ratio 1.1 0.7-1.7 Immunofixation Result, Serum Comment: . Presence of monoclonal protein is unclear at this time. Suggest repeat in 3 to 6 months if clinically indicated. Please note: Comment . Protein electrophoresis scan will follow via computer, mail, or aromatherapist delivery. Free Scribner Lt Chains,S 59.3 3.3-19.4 mg/L Free Lambda Lt Chains,S 58.1 5.7-26.3 mg/L Scribner/Lambda Ratio,S 1.02 0.26-1.65 Performed at: [address] [id number] Proposal Consultant: Lex Munguia PhD, Phone: [phone] Performing Lab: see note - [facility] LB Erythrocyte Sedimentation Ra te Reviewed date:02/04/2024 02:16:43 PM Interpretation: Performing Lab: Notes/Report: [facility] , Erythrocyte Sedimentation Rate 95 <=30 mm/hr Performing Lab: see note - [facility] LB RHEUMATOID FACTOR Reviewed date:02/04/2024 02:16:43 PM Interpretation: Performing Lab: Notes/Report: [facility] , Rheumatoid Factor (RF) 10.3 <14.0 IU/mL Performed at: [address] [id number] Proposal Consultant: Lex Munguia PhD, Phone: [phone] Performing Lab: see note - [facility] LB SINGH, PE and FLC, Serum Reviewed date:09/26/2023 06:58:20 PM Interpretation: Performing Lab: Notes/Report: [facility] , Immunoglobulin G, Qn, Serum 5552 763-6866 mg/dL Immunoglobulin A, Qn, Serum 332 87-352 mg/dL Immunoglobulin M, Qn, Serum 206 26-217 mg/dL Protein, Total 7.6 6.0-8.5 g/dL Albumin 3.8 2.9-4.4 g/dL Twklw-8-Ozhcsbcw 0.3 0.0-0.4 g/dL Koxta-3-Kcgrytdb 1.0 0.4-1.0 g/dL Beta Globulin 1.2 0.7-1.3 g/dL Gamma Globulin 1.4 0.4-1.8 g/dL M-Chuck 0.3 Not Observed g/dL Globulin, Total 3.8 2.2-3.9 g/dL A/G Ratio 1.1 0.7-1.7 Immunofixation Result, Serum Comment . Immunofixation shows IgG monoclonal protein with lambda light chain specificity. Please note: Comment . Protein electrophoresis scan will follow via computer, mail, or aromatherapist delivery. Free Scribner Lt Chains,S 54.2 3.3-19.4 mg/L Free Lambda Lt Chains,S 54.3 5.7-26.3 mg/L Scribner/Lambda Ratio,S 1.00 0.26-1.65 Performed at: [employer] [facility] [id number] Proposal Consultant: Lex Munguia PhD, Phone: [phone] Performing Lab: see note LC - [facility] LB Immunofixation, Urine Reviewed date:09/27/2023 08:11:32 PM Interpretation: Performing Lab: Notes/Report: [facility] , Immunofixation, Urine Comment: . Presence of monoclonal protein is unclear at this time. Suggest repeat in 3 to 6 months if clinically indicated. Performed at: [facility] [id number] Proposal Consultant: Lex Munguia PhD, Phone: [phone] Performing Lab: see note LC - [facility] LB URINE T PROTEIN CREAT RATIO Reviewed date:09/25/2023 08:35:25 PM Interpretation: Performing Lab: Notes/Report: [facility] , Total Protein Urine Random 54.6 <=11.9 mg/dL Creatinine Urine Random 138.59 20.00-30 0.00 mg/dL Protein Creatinine Ratio Urine 0.39 Performing Lab: see note ML - [facility] LB URIC ACID SERUM Reviewed date:09/25/2023 08:35:25 PM Interpretation: Performing Lab: Notes/Report: [facility] , Uric Acid 6.5 2.6-6.0 mg/dL Performing Lab: see note ML - [facility] LB UA RANDOM W or MICROSCOPIC Reviewed date:09/25/2023 08:35:25 PM Interpretation: Performing Lab: Notes/Report: [facility] , Color Urine LT. YELLOW YELLOW Clarity Urine CLEAR CLEAR Specific [place] Urine 1.025 1.005-1.025 pH Urine 6.0 5.0-9.0 Protein Urine 30 NEG/TRACE mg/dL Glucose Urine UA NEGATIVE NEGATIVE mg/dL Bilirubin Urine NEGATIVE NEGATIVE Ketones Urine NEGATIVE NEGATIVE mg/dL Blood Urine NEGATIVE NEGATIVE Nitrite Urine NEGATIVE NEGATIVE Urobilinogen Urine 1.0 0.2-1.0 EU/dL Leukocyte Esterase Urine NEGATIVE NEGATIVE WBC Urine 0-2 NONE SEEN #/HPF RBC Urine 0-2 0-2 #/HPF Bacteria Urine TRACE NONE SEEN #/HPF Mucus Urine TRACE NONE SEEN Squamous Epithelial Cell Urine FEW NONE/RARE #/LPF Transitional Epi Cells Urine RARE NONE SEEN #/LPF Crystals Seen? None Seen None Seen #/HPF Cast Seen? NONE SEEN NONE SEEN #/LPF Urine Culture Indicated NO Performing Lab: see note ML - [facility] RENAL FUNCTION PANEL Reviewed date:09/25/2023 08:35:25 PM Interpretation: Performing Lab: Notes/Report: [facility] , Sodium 138 136-145 mmol/L Potassium 4.5 3.5-5.1 mmol/L Chloride 101 98-107 mmol/L Carbon Dioxide 27.2 21.0-32.0 mmol/L Anion Gap 14.3 Glucose 125 74-106 mg/dL Blood Urea Nitrogen 21.0 7.0-18.0 mg/dL Creatinine 1.68 0.55-1.02 mg/dL Estimated GFR ( Sun 37 >=60 Estimated GFR (Non- Raquel 31 >=60 BUN Creatinine Ratio 12.5 Calcium 9.2 8.5-10.1 mg/dL Phosphorus 3.9 2.6-4.7 mg/dL Albumin Level 3.6 3.4-5.0 g/dL Performing Lab: see note ML - [facility] LB MAGNESIUM Reviewed date:09/25/2023 08:35:25 PM Interpretation: Performing Lab: Notes/Report: [facility] , Magnesium 1.6 1.8-2.4 mg/dL Performing Lab: see note - [facility] LB IMMUNOGLOBULIN E, TOTAL (Not yet reviewed by provider) Interpretation: Performing Lab: Notes/Report: [facility] , Immunoglobulin E, Total 87 6-495 IU/mL Performed at: [facility] [id number] Proposal Consultant: Sam Tolbert MD, Phone: [phone] Performing Lab: see note LC - [facility] LB Reason For Referral No Information Medications Medication SIG (Take, Route, Frequency, Duration) Notes Start Date End Date Status Synthroid 175 MCG 1 tablet in the morning on an empty stomach Orally Once a day for 30 days Active Benzonatate 200 MG 1 capsule Orally Three times a day for 7 days 08/14/2024 Active levoFLOXacin 750 MG 1 tablet Orally Once a day for 10 day(s) 08/14/2024 Active Aspirin 81 81 MG 1 tablet Orally Once a day Active Vitamin D (Ergocalciferol) 1.25 MG (31511 UT) 1 capsule Orally once weekly Active Pantoprazole Sodium 40 mg TAKE 1 TABLET BY MOUTH ONCE DAILY for 90 Active Lisinopril 20 MG 1 tablet Orally Once a day for 30 days 08/14/2024 Active Coreg 25 MG 1 tablet with food Orally Twice a day for 30 days Active Citalopram Hydrobromide 40 MG 1 tablet Orally Once a day for 30 days 07/14/2022 Active Trelegy Ellipta 200 mcg 200 mcg/62.5 mcg/ 25 mcg 1 puff Inhalation Once a day for 30 days 1 inhaler/ box 08/14/2024 Active predniSONE 20 MG 2 tablets Orally Once a day for 5 days 06/20/2024 Active Immunizations Vaccine Route Administration Date Status Comme nts Flu, (71441) -historic- Whole Unknown 02/11/2015 Administered Flu, Flucelvax (7077-7293) (82039) 6 mos and older, single-dose syringe IM Intramuscular 02/15/2023 Administered Flu, Flucelvax (04585) 2 yrs+, single-dose syringe (7435-5007) Unknown 01/13/2020 Administered Flu, Flucelvax (94227) 2 yrs+, single-dose syringe (5517-1381) Unknown 12/29/2020 Administered SARS-COV-2 (COVID 19 Moderna - Booster 0.25mL) Unknown 05/22/2020 Administered SARS-COV-2 (COVID 19 Moderna - Booster 0.25mL) Unknown 06/19/2020 Administered SARS-COV-2 (COVID 19 Moderna - Booster 0.25mL) Unknown 03/07/2021 Administered Social History Tobacco Use: Social History Observation Description Date Details (start date - stop date) Former Smoker 03/12/1974 - 07/14/2022 Tobacco Use/Smoking Question Answer Notes Patient is a former smoker When did you start smoking? 03/12/1974 When did you stop smoking? 07/14/2022 How long has it been since you last smoked? < 1 month Alcohol Screen (Audit-C) Question Answer Notes Did you have a drink containing alcohol in the p ast year? No Points 0 Interpretation Negative AUDIT-C (Standard) Question Answer Notes Did you have a drink containing alcohol in the p ast year? No Points 0 Interpretation Negative Problems Problem Type SNOMED Code ICD Code Onset Dates Problem Status W/U Status Risk Notes Problem 57349531 Atherosclerotic heart disease of [place] coronary artery without angina pectoris (I25.10) Active confirmed Problem Chronic ischemic heart disease (638437230) Chronic ischemic heart disease, unspecified (I25.9) Active confirmed Problem Acute frontal sinusitis (77594487) Acute recurrent frontal sinusitis (J01.11) Active confirmed Problem Lumbosacral spondylosis without myelopathy (88953150) Other spondylosis, lumbar region (M47.896) Active confirmed Problem Fibromyalgia (452292118) Fibromyalgia (M79.7) Active confirmed Problem 74136487 Acute kidney failure, unspecified (N17.9) Active confirmed Problem Acute cystitis (97595085) Acute cystitis with hematuria (N30.01) Active confirmed Problem Chest pain (05415607) Chest pain (R07.9) Active confirmed Problem Hyperlipidemia (09979675) Hyperlipidemia (E78.5) Active confirmed Problem Chronic obstructive pulmonary disease (42282653) Chronic obstructive pulmonary disease (J44.9) Active confirmed Problem Hypertension (77089435) Hypertension (I10) Active confirmed Problem Osteoarthritis (304447561) Osteoarthritis (M19.90) Active confirmed Problem Angina pectoris (898240178) Angina pectoris (I20.9) Active confirmed Problem Cigarette smoker (60647447) Cigarette smoker (F17.210) Active confirmed Problem Asthma (997858093) Asthma (J45.909) Active confirmed Problem Mitral valve disorder (93741706) Moderate mitral regurgitation (I34.0) Active confirmed Problem Hypothyroidism (39264713) Hypothyroidism (E03.9) Active confirmed Problem Neck pain (04336908) Neck pain (M54.2) Active confirmed Problem Osteopenia (998004413) Osteopenia (M85.80) Active confirmed Problem Insomnia (486815094) Insomnia (G47.00) Active confirmed Problem Eczema (82566291) Eczema (L30.9) Active confirm ed Problem 62703117 Chronic fatigue (R53.82) Active confirmed Problem Lumbar radiculopathy (793247517) Lumbar radiculopathy (M54.16) Active confirmed Problem Acute sinusitis (25720234) Acute sinusitis (J01.90) Active confirmed Problem Displacement of lumbar intervertebral disc without myelopathy (73494834) Lumbar herniated disc (M51.26) Active confirmed Problem Well adult (127060671) Well adult (Z00.00) Active confirmed Problem 266927269 Acquired hypothyroidism (E03.9) Active confirmed Problem Irritable bowel syndrome (35347289) Irritable bowel syndrome (K58.9) Active confirmed Problem Degenerative disc disease (87911954) DDD (degenerative disc disease), lumbar (M51.36) Active confirmed Problem Multiple sclerosis (32865053) Multiple sclerosis (G35) Active confirmed Problem Impingement syndrome of shoulder region (463875807) Shoulder impingement (M75.40) Active confirmed Problem Acute systolic heart failure (018786757) Acute systolic heart failure (I50.21) Active confirmed Problem Overweight (495790657) Over weight (E66.3) Active confirmed Problem Seasonal allergic rhinitis (832284584) Allergic rhinitis, seasonal (J30.2) Active confirmed Problem Thoracic outlet syndrome (480942758) Thoracic outlet syndrome (G54.0) Active confirmed Problem Left lower quadrant pain (261486780) Abdominal pain, LLQ (R10.32) Active confirmed Problem Diverticular disease of colon (759616102) Colon, diverticulosis (K57.30) Active confirmed Problem Fibrocystic breast changes (26793852) Fibrocystic breast disease (N60.19) Active confirmed Problem Trigger finger of right hand (4109104791107247 1) Trigger finger of right hand (M65.30) Active confirmed Problem Recurrent major depression (15450041) Depression, major, recurrent, in remission (F33.40) Active confirmed Problem Diabetic peripheral neuropathy associated with type 2 diabetes mellitus (8059674535816) Type 2 diabetes, controlled, 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) Active confirmed Problem Raynaud's disease (499323465) Raynaud's disease (I73.00) Active confirmed Problem Peripheral vertigo (66619189) Vertigo, peripheral (H81.399) Active confirmed Problem Bruising (784784387) Bruising (T14.8XXA) Active confirmed Problem Cough (finding) (38650835) Other cough (R05.8) Active confirmed Vital Signs Temperature 97.8 degrees Fahrenheit 06/20/2024 Oximetry 98 % 06/20/2024 Blood pressure diastolic 100 mm Hg 08/14/2024 Height 62 in 08/14/2024 Blood pressure systolic 234 mm Hg 08/14/2024 Weight 146.4 lbs 08/14/2024 BMI 26.77 kg/m2 08/14/2024 Encounters Encounter Location Date Provider Diagnosis [address] [address] 06/28/2024 Zaire Myersy Acute kidney failure , unspecified N17.[address] [address] 07/04/2024 Zaire Hoy [address] [address] 07/07/2024 Zaire Hoy [address] [address] 08/15/2024 Zaire Hoy Acute bronchitis, unspecified organism J20.[address] [address] 09/14/2023 YONY MYERSY Hypertension I10 [facility] [address] [place] [address] 12/11/2023 Zaire Teague Encounter for Medica re annual wellness exam Z00.[address] [address] 02/13/2024 Zaire Hoy Acute non-recurrent sinusitis, unspecified location J01.90 and Nasal congestion R09.[address] [address] 08/14/2024 Zaire Hoy Acute bronchitis, unspecified organism J20.9 [facility] [address] [facility] [place] [address] 07/07/2024 Zaire Hoy Hypertension I10 [facility] [address] [facility] [place] [address] 06/20/2024 Zaire Hoy Chronic obstructive pulmonary disease J44.9 and Acute bronchitis, unspecified organism J20.9 [facility] [address] [place] [address] 10/18/2023 Kailash [facility] [address] [place] [address] 11/[facility] [address] [place] [address] 03/[facility] [address] [place] [address] 08/27/20[facility] [address] [place] [address] 09/03/20[facility] [address] [place] [address] 08/19/2024 Kailash [facility] Assessments Encounter Date Diagnosis (ICD Code) Assessment Notes Treatment Notes Treatment Clinical Notes Section Notes 09/14/2023 Hypertension (ICD-10 - I10) 06/28/2024 Acute kidney failure, unspecified (ICD-10 - N17.9) 08/15/2024 Acute bronchitis, unspecified organism (ICD-10 - J20.9) 07/07/2024 Hypertension (ICD-10 - I10) 08/14/2024 Acute bronchitis, unspecified organism (ICD-10 - J20.9) Rest and drink more liquids, especially water. You may use a humidifier or vaporizer to help keep the drainage moist. Qvtu-cnt-sotcpvc Nasal Saline may help the stuffy and runny nose. Use Ibuprofen and or Tylenol as needed for fever, chills, body aches or pain. Children 5 years old should not be given blxt-kzx-hcgdquh cough and cold medications such as guaifenesin and dextromethorphan. If you're over age 5, you may try nvhh-dmr-jwcgrnm cold medications such as guaifenesin and dextromethorphan, or multi-symptom cold reliever such as Dayquil to help reduce the symptoms. Antibiotics have been prescribed. You should take these until completed and follow the directions. Antibiotics can sometimes cause upset stomach, and in rare cases, serious allergic reactions or serious gastrointestinal problems. If you start having severe abdominal pain, severe vomiting, or bloody diarrhea, you should be reevaluated by your physician or urgent care immediately. Follow up with your Primary Care Provider or return to clinic if symptoms do not improve within 3-5 days. If you develop severe symptoms such as shortness of breath, repeated vomiting, coughing up blood, or chest pain you should go to the emergency room or call 911 12/11/2023 Encounter for Medicare annual wellness exam (ICD-10 - Z00.00) 02/13/2024 Acute non-recurrent sinusitis, unspecified location (ICD-10 - J01.90) Rest and drink more liquids, especially water. You may use a humidifier or vaporizer to help keep the drainage moist. Mszs-not-gkiviyu Nasal Saline may help the stuffy and runny nose. Use Ibuprofen and or Tylenol as needed for fever, chills, body aches or pain. Children 5 years old should not be given kfxu-bdl-xoryotg cough and cold medications such as guaifenesin and dextromethorphan. If you're over age 5, you may try ntgk-gcu-ecmaefx cold medications such as guaifenesin and dextromethorphan, or multi-symptom cold reliever such as Dayquil to help reduce the symptoms. Antibiotics have been prescribed. You should take these until completed and follow the directions. Antibiotics can sometimes cause upset stomach, and in rare cases, serious allergic reactions or serious gastrointestinal problems. If you start having severe abdominal pain, severe vomiting, or bloody diarrhea, you should be reevaluated by your physician or urgent care immediately. Follow up with your Primary Care Provider or return to clinic if symptoms do not improve within 3-5 days 06/20/2024 Chronic obstructive pulmonary disease (ICD-10 - J44.9) 06/20/2024 Acute bronchitis, unspecified organism (ICD-10 - J20.9) Rest and drink more liquids, especially water. You may use a humidifier or vaporizer to help keep the drainage moist. Ymjk-atk-prbhdmn Nasal Saline may help the stuffy and runny nose. Use Ibuprofen and or Tylenol as needed for fever, chills, body aches or pain. Children 5 years old should not be given facb-dml-wqcmnqm cough and cold medications such as guaifenesin and dextromethorphan. If you're over age 5, you may try gsof-yvp-aovxsjy cold medications such as guaifenesin and dextromethorphan, or multi-symptom cold reliever such as Dayquil to help reduce the symptoms. Antibiotics have been prescribed. You should take these until completed and follow the directions. Antibiotics can sometimes cause upset stomach, and in rare cases, serious allergic reactions or serious gastrointestinal problems. If you start having severe abdominal pain, severe vomiting, or bloody diarrhea, you should be reevaluated by your physician or urgent care immediately. Follow up with your Primary Care Provider or return to clinic if symptoms do not improve within 3-5 days. If you develop severe symptoms such as shortness of breath, repeated vomiting, coughing up blood, or chest pain you should go to the emergency room or call 911 02/13/2024 Nasal congestion (ICD-10 - R09.81) Plan Of Treatment Pending Test Test Name Order Date Exercise Stress Nuclear Test 08/03/2022 HEMOGLOBIN A1C (GLYCO) 06/20/2024 IRON, TOTAL 06/20/2024 LIPID PANEL (CHOL/TRIG/HDL/LDL) 06/21/19 25 US Renal 05/01/2023 COMPREHENSIVE METABOLIC PROFILE WITH GFR 05/01/2023 CT Chest Low Dose for Screening* 023 STOOL OCCULT BLOOD 06/20/2024 CBC AUTO DIFF 08/19/2024 CRP 08/19/2024 FERRITIN 08/19/2024 GLYCOHEMOGLOBIN A1C 06/27/2022 IMMUNOGLOBULIN E, TOTAL 08/19/2024 IRON AND TIBC 08/19/2024 PROF 14(COMP METB) 08/19/2024 PROF CHEM 8 (BAS METB) 05/08/2023 PROF CHEM 8 (BAS METB) 05/19/2023 PROF CHEM 8 (BAS METB) 04/23/2023 VITAMIN D 25 OH 06/27/2022 US KIDNEYS 06/28/2024 US KIDNEYS BLADDER 05/19/2023 THYROID PANEL (T4/TSH/FREE T3) 3 THYROID PANEL (T4/TSH/FREE T3) 5 Erythrocyte Sedimentation Rate 5 SINGH, PE and FLC, Serum 08/19/2024 CMP (COMP MET ZHAO) w/eGFR CKD-EPI 2024 CBC WITH DIFF 06/20/2024 Next Appt Details Provider Name:Kailash Armijo , 11/18/2024 11:30:00 AM, [address] [place], [address], Insurance Providers Payer Name Payer Address Payer Phone Subscriber Number Group Number Insured Name Patient Relationship to Insured Coverage Start Date Coverage End Date [employer] [address] [address] [place], [place] [id number] Deepthi Pantoja Self - patient is the insured 5 Medical (General) History Medical History History ICD Code Over weight E66.3 Acute sinusitis J01.90 Other cough R05.8 Osteoarthritis M19.90 Chest pain R07.9 Acute systolic heart failure I50.21 Vertigo, peripheral H81.399 Acute recurrent frontal sinusitis J01.11 Abdominal pain, LLQ R10.32 Acute cystitis with hematuria N30.01 Osteopenia M85.80 Well adult Z00.00 Moderate mitral regurgitation I34.0 Colon, diverticulosis K57.30 DDD (degenerative disc disease), lumbar M51.36 Other spondylosis, lumbar region M47.896 Lumbar radiculopathy M54.16 Hyperlipidemia E78.5 Type 2 diabetes, controlled, with periph eral neuropathy E11.40 Chronic ischemic heart disease, unspecif ied I25.9 Angina pectoris I20.9 Multiple sclerosis G35 Trigger finger of right hand M65.30 Hypertension I10 Raynaud's disease I73.00 Eczema L30.9 Hypothyroidism E03.9 Allergic rhinitis, seasonal J30.2 Lumbar herniated disc M51.26 Thoracic outlet syndrome G54.0 Depression, major, recurrent, in remissi on F33.40 Fibromyalgia M79.7 Fibrocystic breast disease N60.19 Chronic obstructive pulmonary disease J4 4.9 Asthma J45.909 Neck pain M54.2 Bruising T14.8XXA Cigarette smoker F17.210 Irritable bowel syndrome K58.9 Surgical History Surgery Date(Month/Year) outlet procedure appendix gallbladder back surgeyr left knee surgery full hysterectomy Hospitalization History Reason Date(Month/Year) see above
--- OUTSIDE RECORDS SUMMARY | 2024-09-11 11:21 | XMS_ITS | Clinical Summary ---
Author Organization [facility] Address [address] [place] [address] Care Team Providers Care Ticket Taker Ferryboat Name Role Phone Jonatan Teague MD Primary Care Provider [phone] Allergies Active Allergy Reactions Criticality Noted Date Comments Propoxyphene N-Acetaminophen Other 014 Penicillins Hives Medium 02/27/2014 Medications levothyroxine (Synthroid, Levoxyl) 200 mcg tablet Take 175 mcg by mouth before breakfast. Active citalopram (CeleXA) 20 mg tablet Take 40 mg by mouth in the morning. Active aspirin 81 mg EC tablet Take 1 tablet every day by oral route. Active pantoprazole (ProtoNix) 40 mg EC tablet Take 40 mg by mouth in the morning. 02/19/20 Active carvedilol (Coreg) 25 mg tabletIndications:Es sential hypertension Take one tablet BID this replaces metoprolol 180 tablet 3 03/20/19 Active Additional Information Patient taking differently: 25 mg oral 2 times daily with meals, (No instructions reported), Reported on 05/11/2023 chlorthalidone (Hygroton) 25 mg tabletIndications:Es sential hypertension Take 1 tablet (25 mg) by mouth in the morning. 90 tablet 3 11/01/19 Active ezetimibe (Zetia) 10 mg tabletIndications:Co ronary arteriosclerosis in [place] artery,Mixed hyperlipidemia Take 1 tablet (10 mg) by mouth at bedtime. 90 tablet 3 11/01/19 Active Additional Information Patient not taking.Reported on 12/03/2023 spironolactone (Aldactone) 25 mg tabletIndications:Es sential hypertension Take 1 tablet (25 mg) by mouth in the morning. 90 tablet 3 11/01/19 Active diclofenac (Voltaren) 75 mg EC tablet Take 75 mg by mouth in the morning and at bedtime. Do not crush, chew, or split. Active isosorbide mononitrate ER (Imdur) 30 mg 24 hr tabletIndications:Co ronary arteriosclerosis in [place] artery,Atypical chest pain Take 1 tablet (30 mg) by mouth in the morning. Do not crush or chew. 90 tablet 3 03/14/19 24 Active hydrALAZINE (Apresoline) 25 mg tabletIndications:Es sential hypertension Take 1 tablet (25 mg) by mouth in the morning, at noon, and at bedtime. 90 tablet 11 03/20/19 24 Active Additional Information Patient not taking.Reported on 12/03/2023 simvastatin (Zocor) 20 mg tabletIndications:Co ronary arteriosclerosis in [place] artery,Mixed hyperlipidemia Take 1 tablet (20 mg) by mouth at bedtime. 90 tablet 3 05/11/19 24 Active ergocalciferol (Vitamin D-2) 1.25 MG (09322 Units) capsule Take 1 capsule by mouth 1 (one) time per week. Active Active Problems Problem Noted Date Diagnosed Date CKD (chronic kidney disease) stage 3, GFR 30-59 ml/min 12/03/2023 Hyperuricemia 12/03/2023 Hypomagnesemia 12/03/2023 MGUS (monoclonal gammopathy of unknown significa nce) 12/03/2023 Secondary hyperparathyroidism 12/03/2023 Acute kidney injury superimposed on CKD 04/12/19 Assessment & Plan (05/11/2023 10:42 AM EST): In light of noted BENNIE on CKD will refer pt to nephrology for further evaluation and management of renal disease and assistance with HTN managemend Assessment & Plan (04/12/2023 12:08 PM EST): Decrease lisinopril to 10 mg daily, repeat BMP in 1 week in light she is taking Chlorthalidone, lisinopril and aldactone. Hopefully renal function improves and HTN is controlled. Impingement syndrome of shoulder region 03/14/19 24 03/14/2023 Mitral valve regurgitation 03/20/2022 Assessment & Plan (03/14/2023 4:23 PM EST): No concerning symptoms today Monitor with echocardiogram and F/u assessment of any concerning symptoms Assessment & Plan (10/31/2022 12:07 PM EDT): Stable Monitor with routine echocardiograms Essential hypertension 06/20/2013 Assessment & Plan (05/11/2023 10:43 AM EST): Currently is not taking multiple antihypertensive meds- Dr Teague's office states that asked pt to hold lisinopril and has repeat labs next Sunday. I asked pt to resume taking hydralazine, imdur, aldactone. Referral to nephrology sent Assessment & Plan (04/12/2023 12:07 PM EST): Hypertension is much improved- but renal function increased therefore decrease lisinopril to 10 mg daily and add hydralazine 25 mg tid. Repeat labs- BMP in 1 week to check renal function RTC 1 month Assessment & Plan (03/20/2023 1:05 PM EST): At last visit HTN was uncontrolled therefore lisinopril was increased to 20 [...] please Staff to call and update pt. Delfina Lawson NP Division of Cardiology, [facility] Ph- [phone] Pager- [phone] Email- [email or web address] Assessment & Plan (03/14/2023 4:24 PM EST): Hypertension is uncontrolled and pt states she is taking medications daily- reports she took all meds today Increase lisinopril to 20 mg daily and add imdur 30 mg for HTN and chest pain Assessment & Plan (10/31/2022 12:06 PM EDT): Hypertension is uncontrolled- staff called pharmacy and they report that [...] pt to reach out community resources, her evangelical, family and friends for assistance. IF any concerning symptoms she is to call office or 911 and she voiced understanding of red flag symptoms. Vertigo 12/23/2012 Assessment & Plan (03/14/2023 4:26 PM EST): Will send script for meclizine for S/S of vertigo- pt to f/u with PCP for further evaluation and management Palpitations 12/20/2012 Acquired hypothyroidism 09/11/2012 Abnormal liver function tests 02/05/2012 Multiple sclerosis 01/01/2012 Coronary arteriosclerosis in [place] artery 10/22 Assessment & Plan (04/12/2023 12:07 PM EST): Coronary artery disease is stable Continue GDMT continue risk factor modifications- heart healthy diet, regular exercise as tolerated and continue all medications. Assessment & Plan (03/14/2023 4:24 PM EST): Coronary artery disease is stable Continue GDMT- ASA, coreg, zetia, simvastatin, and lisinopril continue risk factor modifications- heart healthy diet, regular exercise as tolerated and continue all medications. Assessment & Plan (10/31/2022 12:03 PM EDT): Coronary artery disease is currently stable Recent normal stress test in emir Continue GDMT- ASA, coreg, simvastatin and zetia continue risk factor modifications- heart healthy diet, regular exercise as tolerated and continue all medications. Atypical chest pain 10/18/2011 Assessment & Plan (03/14/2023 4:25 PM EST): Will add imdur to med regime, d/w pt to call office for side effects- headache, hypotension or any concerns and she voiced understanding Assessment & Plan (10/31/2022 12:02 PM EDT): EKG today sinus rhythm and essentially unchanged from previous, no acute ST or T wave changes noted Most likely r/t emotional/family stress and uncontrolled b/p. Hyperlipidemia 10/18/2011 Assessment & Plan (05/11/2023 10:44 AM EST): Pt has stopped taking simvastatin- asked pt to resume taking simvastatin Assessment & Plan (03/14/2023 8:34 AM EST): Continue zocor and zetia Assessment & Plan (10/31/2022 12:07 PM EDT): Lipid abnormalities are stable- will not change any of her meds at this time in light that I don't feel she is taking meds as prescribed r/t turmoil in her life Type 1 diabetes mellitus 10/18/2011 Immunizations Immunization Administration Dates Next Due Influenza, Unspecified 01/23/2017 Influenza, injectable, MDCK, preservative free, quadrivalent 12/29/2020,01/13/2020 Influenza, seasonal, injecta ble, preservative free, 6 moonths & older 02/11/2015 Moderna SARS-CoV-2 Vaccination 03/07/2021,2020,05/22/2020 Family History Medical History Relation Name Comments lung cancer Father Dementia Mother Diabetes Mother Heart failure Mother Relation Name Status Comments Father Mother Social History Tobacco Use Types Packs/Day Years Used Date Smoking Tobacco: Every Day Cigarettes Smokeless Tobacco: Never Tobacco Cessation:Ready to Q uit: Not Asked; Counseling Given: Not Answered Alcohol Use Standard Drinks/Week Comments Not Currently 0 (1 standard drink = 0.6 oz pur e alcohol) [place] Safety & Environment Answer Date Rec orded Fear of Current or Ex-Partner Not on file Emotionally Abused Not on file 05/03/2023 Physically Abused Not on file 05/03/2023 Sexually Abused Not on file 05/03/2023 Physically or Sexually Abused Not on file Comments Unknown Sex and Gender Information Value Date Recorded Sex Assigned at Not on file Legal Sex Female 9:14 PM EDT Gender Identity Not on file Sexual Orientation Not on file Last Filed Vital Signs Vital Sign Reading Time Taken Comments Blood Pressure 162/72 12/03/2023 10:19 AM EDT Pulse 62 12/03/2023 10:19 AM EDT Temperature - - Respiratory Rate - - Oxygen Saturation 98% 12/03/2023 10:19 AM EDT Inhaled Oxygen Concentration - - Weight 67.6 kg (149 lb) 12/03/2023 10:19 AM EDT Height 157.5 cm (5' 2 ) 12/03/2023 10:19 AM EDT Body Mass Index 27.25 12/03/2023 10:19 AM EDT Plan of Treatment Health Maintenance Due Date Last Done Comments CT Colonography 1958 Colonoscopy 1958 Colorectal Cancer Screening 1958 Diabetes: Hemoglobin A1C 1958 FIT-DNA 1958 FIT 1958 FOBT 1960 Medicare Annual Wellness (AWV) 1958 Sigmoidoscopy 1958 Diabetes: Retinopathy Screening 1968 Depression Screening 1970 Diabetes: Urine Protein Screening 1977 Pneumococcal Vaccine: 50+ Years (1 of 2 - PCV) 1977 Adult Tetanus 1980 Mammogram 1998 Zoster Vaccines (1 of 2) 2008 Fall Risk Screening 2023 COVID-19 Vaccine ( season) 2023 03/07/2021, 03/07/2021, 06/19/2020, Additional history exists Influenza Vaccine (#1) 2024 , 01/13/2020, 01/23/2017, Additional history exists HIB Vaccines Aged Out No longer eligi ble based on patient's age to complete this topic HPV Vaccines Aged Out No longer eligi ble based on patient's age to complete this topic IPV Vaccines Aged Out No longer eligi ble based on patient's age to complete this topic Meningococcal B Vaccine Aged Out No l onger eligible based on patient's age to complete this topic Meningococcal Vaccine Aged Out No ruben robert eligible based on patient's age to complete this topic Rotavirus Vaccines Aged Out No longer eligible based on patient's age to complete this topic Insurance [employer] MEDICARE Care Teams Ticket Taker [employer]erryboat Relationship Specialty Start Date End Date Jonatan Teague MD [address] [facility] [address] [address] PCP - General 03/20/22
--- OUTSIDE RECORDS SUMMARY | 2024-09-11 11:21 | XMS_ITS | Clinical Summary ---
Author Organization [employer] Address [id number] [address] [place] [address] Care Team Providers Care Vegetable Cutter Name Role Phone Jonatan Teague MD Primary Care Provider [phone] Allergies Active Allergy Reactions Criticality Noted Date Comments Penicillin G Hives 06/04/2018 Medications citalopram (CeleXA) 20 mg tablet Take 20 mg by mouth daily. Active lisinopril (PRINIVIL,ZESTRI L) 10 mg tablet Take 10 mg by mouth daily. Active levothyroxine (SYNTHROID, LEVOTHROID) 100 MCG tablet Take 100 mcg by mouth daily. Active aspirin 81 mg Take 81 mg by mouth daily. Active simvastatin (ZOCOR) 20 mg tablet Take 20 mg by mouth nightly. Active carvedilol (COREG) 12.5 mg tablet Take 12.5 mg by mouth 2 (two) times a day with meals. Active albuterol (PROAIR HFA) 90 mcg/actuation inhaler Inhale 1 puff as needed. Active Active Problems No known active problems Family History Medical History Relation Name Comments Cancer Father Stroke Father Diabetes Mother Heart disease Mother Hypertension Mother Relation Name Status Comments Father Mother Social History Tobacco Use Types Packs/Day Years Used Date Smoking Tobacco: Every Day Cigarettes Smokeless Tobacco: Never Alcohol Use Standard Drinks/Week Comments No 0 (1 standard drink = 0.6 oz pur e alcohol) AUDIT-C Answer Date Recorded Frequency of Alcohol Consumption Never 06/04/2018 Average Number of Drinks Not on file 019 Frequency of Binge Drinking Not on file 05/11 Childcare Answer Date Recorded Childcare Unknown 08/21/2018 Employment Answer Date Recorded Employment Unknown 08/21/2018 Purpose - Life Answer Date Recorded Purpose and direction in life Unknown Comments No Sex and Gender Information Value Date Recorded Sex Assigned at Not on file Legal Sex Female 11:32 AM EDT Gender Identity Not on file Sexual Orientation Not on file Last Filed Vital Signs Vital Sign Reading Time Taken Comments Blood Pressure 97/46 02/20/2019 3:14 AM EST Pulse 58 02/20/2019 3:29 AM EST Temperature 36.3 C (97.4 F) 02/19/2019 10:30 PM EST Respiratory Rate 16 02/20/2019 3:29 AM EST Oxygen Saturation 96% 02/20/2019 3:29 AM EST Inhaled Oxygen Concentration - - Weight 68 kg (150 lb) 02/19/2019 10:30 PM EST Height 157.5 cm (5' 2 ) 02/19/2019 10:30 PM EST Body Mass Index 27.44 02/19/2019 10:30 PM EST Plan of Treatment Health Maintenance Due Date Last Done Comments Depression Screening 1970 Tobacco Screening 1970 Adult BMI Screening 1976 DTaP,Tdap and Td Vaccines (1 - Tdap) 1977 Zoster (Shingles) Vaccine (1 of 2) 2008 Fall Risk Screening 2023 Influenza Vaccine 11/10/2024 Medical Devices Implanted Type Area Directory Carrier Device Identifier Shelf Expiration Date Model / Serial / Lot Lens Iol Ultrasert 20.5d - [id number] - [id number] Implanted:Qty: 1 on 06/06/2018 by Gaby Munoz MD at [facility] Lens Right: Eye [employer] 09/08/2020 [id number] 20.5 / [id number] / N/A Lens Iol Ultrasert 20.5d - [id number] 20.5 - [id number] Implanted:Qty: 1 on 06/20/2018 by Gaby Munoz MD at [facility] Lens Left: Eye [employer] 01/09/2021 [id number] 20.5 / [id number] 20.5 / [id number] Insurance MEDICARE Care Teams Vegetable Cutter Relationship Specialty Start Date End Date Jonatan Teague MD PCP - General Family Medicine 06/04/18
--- OUTSIDE RECORDS SUMMARY | 2024-09-11 11:22 | XMS_ITS | Clinical Summary ---
Author Organization [facility] Address [address] [place] [address] Care Team Providers Care Business Account Leader Name Role Phone Unavailable Primary Care Provider Unavailabl e Social History Tobacco Use Types Packs/Day Years Used Date Smoking Tobacco: Never Assessed Comments Unknown Sex and Gender Information Value Date Recorded Sex Assigned at Not on file Legal Sex Female 7:08 PM EDT Gender Identity Not on file Sexual Orientation Not on file Plan of Treatment Not on file Insurance MEDICARE
--- OUTSIDE RECORDS SUMMARY | 2024-09-11 11:46 | XMS_ITS | CCD ---
Author Organization [facility] Care Team Providers Care Nursing Unit Clerk Name Role Phone PHYSICIAN, DEFAULT Unavailable Unavailable [...] ., DR HOLLY Attending Unavailable ZIEBER, DR LAEX Palma Consulting Unavailable PAY ., DR HOLLY Consulting Unavailable HOY ., DR BHAKTA Admitting Unavailable HOY ., DR BHAKTA Attending Unavailable HOY ., DR BHAKTA Primary Care Unavailable HOY ., DR BHAKTA Consulting Unavailable WASHINGTON, DR MICHAEL Turcios Consulting Unavailable HOY ., DR BHAKTA Admitting Unavailable HOY ., DR BHAKTA Attending Unavailable HOY ., DR BHAKTA Primary Care Unavailable HOY ., DR BHAKTA Consulting Unavailable ZIEBER, DR ALEX Palma Consulting Unavailable BRAINSHONA Hoang Attending Unavailable BRAINSHONA Hoang Attending Unavailable BRAINSHONA Hoang Attending Unavailable ELTAJM, FRANSISCOAB Attending Unavailable Yony Teague MD Primary Care Provider [phone] Kerwin Andrade MD Attending Provider Allergies Allergy Classification Reported Allergen(s) Allergy Type Date of Onset Reaction(s) Facility Acetaminophen (1 source) Acetaminophen Drug Allergy 4 [facility] Opioid Agonists (1 source) Propoxyphene Drug Allergy 4 [facility] Penicillins (antibiotic) (1 source) Penicillins Drug Allergy 4 [facility] (1 source) acetaminophen / propoxyphene; Translations: [Darvocet] Drug Allergy 2 [facility] Repository (5 sources) Penicillins; Translations: [PENICILLINS] Drug allergy (disorder) 2 [facility], Hives [facility] Repository (1 source) Darvocet-N 100 Drug allergy (disorder) 3 [facility] Repository (2 sources) Acetaminophen Drug Allergy 4 [facility] (2 sources) Propoxyphene Drug Allergy 4 [facility] (1 source) PROPOXYPHENE N-ACETAMINOPHEN; Translations: [PROPOXYPHENE N-ACETAMINOPHEN] Propensity to adverse reactions to drug (disorder) 4 [facility] Repository Medications Current Medications Medication Drug Class(es) Dates Sig (Normalized) Sig (Original) aspirin 81 mg delayed release oral tablet (3 sources) Platelet Aggregation Inhibitor, Nonsteroidal Anti-inflammatory Drug Start: 08-30-2023 take 1 tablet by mouth once daily Aspirin 81 mg tablet,delayed release (DR/EC) Active 81 MG PO Daily August 30, 2023 12:00am Complies with drug therapy carvedilol 25 mg oral tablet (3 sources) alpha-Adrenergic Carla, beta-Adrenergic Carla Start: 08-30-2023 take 1 tablet by mouth twice daily Carvedilol 25 mg tablet Active 25 MG PO Twice daily August 30, 2023 12:00am Complies with drug therapy chlorthalidone 25 mg oral tablet (3 sources) Thiazide-like Diuretic Start: 08-30-2023 take 1 tablet by mouth once daily Chlorthalidone 25 mg tablet Active 25 MG PO Daily August 30, 2023 12:00am Complies with drug therapy citalopram 40 mg oral tablet (4 sources) Serotonin Reuptake Inhibitor Start: 02-14-2024 Citalopram 40 mg tablet Active 40 MG PO February 14, 2024 1:00am Complies with drug therapy Start: 08-30-2023 End: 02-14-2024 take 1 tablet by mouth once daily Citalopram 20 mg tablet Discontinued 20 MG PO Daily August 30, 2023 12:00am February 14, 2024 1:05pm ergocalciferol 1.25 mg oral capsule (3 sources) Provitamin D2 Compound Start: 02-12-2024 take 1 capsule by mouth every week Ergocalciferol (Vitamin D2) 1,250 mcg (50,000 unit) capsule Active 0 .ROUTE .COMPLEX February 12, 2024 3:39pm TAKE 1 CAPSULE BY MOUTH EVERY WEEK Complies with drug therapy Start: 10-04-2023 End: 02-12-2024 take 1 capsule by mouth every week Ergocalciferol (Vitamin D2) 1,250 mcg (50,000 unit) capsule Discontinued 1250 MCG PO every week October 04, 2023 12:00am February 12, 2024 3:39pm ezetimibe 10 mg oral tablet (3 sources) Dietary Cholesterol Absorption Inhibitor Start: 08-30-2023 take 1 tablet by mouth once daily Ezetimibe 10 mg tablet Active 10 MG PO Daily August 30, 2023 12:00am Complies with drug therapy 24 hr isosorbide mononitrate 30 mg extended release oral tablet (3 sources) Nitrate Vasodilator Start: 08-30-2023 take 1 tablet by mouth once daily, then take 1 tablet by mouth every twenty-four hours Isosorbide Mononitrate 30 mg tablet extended release 24 hr Active 30 MG PO Daily August 30, 2023 12:00am Complies with drug therapy levothyroxine sodium 0.175 mg oral tablet (3 sources) l-Thyroxine Start: 08-30-2023 take 1 tablet by mouth once daily Levothyroxine 175 mcg tablet Active 175 MCG PO Daily August 30, 2023 12:00am Complies with drug therapy pantoprazole 40 mg delayed release oral tablet (2 sources) Proton Pump Inhibitor Start: 09-11-2024 take 1 tablet by mouth once Pantoprazole 40 mg tablet,delayed release (DR/EC) Active 40 MG PO Once September 11, 2024 10:31am Complies with drug therapy Start: 02-14-2024 End: 09-11-2024 Pantoprazole 40 mg tablet,de layed release (DR/EC) Discontinued MG PO February 14, 2024 1:00am September 11, 2024 10:32am simvastatin 20 mg oral tablet (4 sources) HMG-CoA Reductase Inhibitor Start: 02-14-2024 take 1 tablet by mouth once daily Simvastatin 20 mg tablet Active 20 MG PO Daily February 14, 2024 1:00am Complies with drug therapy Start: 08-30-2023 End: 02-14-2024 take 1 tablet by mouth once daily Simvastatin 40 mg tablet Discontinued 40 MG PO Daily August 30, 2023 12:00am February 14, 2024 1:06pm spironolactone 25 mg oral tablet (3 sources) Aldosterone Antagonist Start: 08-30-2023 take 1 tablet by mouth once daily Spironolactone 25 mg tablet Active 25 MG PO Daily August 30, 2023 12:00am Complies with drug therapy Completed/Discontinued Medications Medication Drug Class(es) Dates Sig (Normalized) Sig (Original) cefdinir 300 mg oral capsule (1 source) Cephalosporin Antibacterial Start: 02-14-2024 End: 09-11-2024 take 2 capsules by mouth once daily Cefdinir 300 mg capsule Discontinued 600 MG PO Daily February 14, 2024 1:00am September 11, 2024 10:30am diclofenac sodium 75 mg delayed release oral tablet (3 sources) Nonsteroidal Anti-inflammatory Drug Start: 08-30-2023 End: 10-04-2023 take 1 tablet by mouth twice daily Diclofenac Sodium 75 mg tablet,delayed release (DR/EC) Discontinued 75 MG PO Twice daily August 30, 2023 12:00am October 04, 2023 11:12am lisinopril 20 mg oral tablet (3 sources) Angiotensin Converting Enzyme Inhibitor Start: 08-30-2023 End: 08-30-2023 take 1 tablet by mouth once daily Lisinopril 20 mg tablet Discontinued 20 MG PO Daily August 30, 2023 12:00am August 30, 2023 3:59pm magnesium oxide 400 mg oral tablet (3 sources) Start: 10-04-2023 End: 09-11-2024 take 1 tablet by mouth once daily Magnesium Oxide 400 mg (241.3 mg magnesium) tablet Discontinued 400 MG PO Daily 90 February 14, 2024 1:00am September 11, 2024 10:31am Problems Active Problems Problem Classification Problem Date Documented Date Episodic/Chronic Chronic kidney disease (9 sources) Chronic kidney disease stage 3; Translations: [Stage 3 chronic kidney disease] Onset: 4 08-30-2023 Chronic Chronic obstructive pulmonary disease and bronchiectasis (1 source) Chronic obstructive pulmonary disease, unspecified; Translations: [COPD UNSPECIFIED] Onset: 3 Chronic Coronary atherosclerosis and other heart disease (9 sources) Coronary arteriosclerosis; Translations: [Atherosclerotic heart disease of [place] coronary artery without angina pectoris] Onset: 3 [...] Onset: 3 Chronic Disorders of lipid metabolism (9 sources) Hyperlipidemia; Translations: [Hyperlipidemia, unspecified] Onset: 3 08-30-2023 Chronic Essential hypertension (6 sources) Essential (primary) hypertension; Translations: [ESSENTIAL PRIMARY HYPERTENSION] Onset: 3 Chronic Heart valve disorders (2 sources) Nonrheumatic mitral (valve) insufficiency; Translations: [Nonrheumatic mitral (valve) insufficiency] Onset: 3 Chronic Hypertension with complications and secondary hypertension (7 sources) Chronic kidney disease due to hypertension; [...] Neoplasms of unspecified nature or uncertain behavior (4 sources) Monoclonal gammopathy of uncertain significance; Translations: [Monoclonal 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 Other aftercare (1 source) jail (current) use of aspirin; Translations: [RETIREMENT CURRENT USE OF ASPIRIN] Onset: 3 Episodic Other aftercare (1 source) Other exterminator termite (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; Translations: [OTH RETIREMENT CURRENT DRUG THERAPY] Onset: 3 Episodic Other diseases of kidney and ureters (4 sources) Secondary hyperparathyroidism; Translations: [Secondary hyperparathyroidism of renal origin] 08-30-2023 Chronic Other diseases of kidney and ureters (3 sources) Secondary hyperparathyroidism of renal origin; Translations: [Secondary hyperparathyroidism (of renal origin)] 08-30-2023 Chronic Other nutritional; endocrine; and metabolic disorders (1 source) Obesity, unspecified; Translations: [OBESITY UNSPECIFIED] Onset: 3 Chronic Other nutritional; endocrine; and metabolic disorders (3 sources) Hypomagnesemia; Translations: [Hypomagnesemia] 10-04-2023 Chronic Other nutritional; endocrine; and metabolic disorders (1 source) Hypomagnesemia; Translations: [Disorders of magnesium metabolism] 10-04-2023 Chronic Other nutritional; endocrine; and metabolic disorders (1 source) Body mass index (BMI) 25.0-25.9, adult; Translations: [BODY MASS INDEX BMI 25.0-25.9 ADULT] Onset: 3 Episodic Other nutritional; endocrine; and metabolic disorders (3 sources) Hyperuricemia; Translations: [Hyperuricemia without signs of inflammatory [...] Range Facility Office Visiton 12-03-2023 Follow-up visit [id number] Gagandeep Pantoja 1960 F Date Provider Department Center 12/03/2023 LAURIE ALAN CARD [facility] Family History Problem Relation Age of Onset Heart failure Mother Diabetes Mother Dementia Mother Other Father Family Status - Relation Status Age at Mother Father Level of Service:08873 HI OFFICE/OUTPATIENT ESTABLISHED MOD MDM 30 MIN Normal [facility] Albumin [Mass/volume] in Ser um or Plasmaon 09-25-2023 Albumin [Mass/Vol] 3.8 g/dL 2.9-4.4 [facility] Centriole Ab IF (S) [Titer]o n 09-25-2023 Anti-Nuclear Ab Centriole Pattern TNP . [facility] Centromere Ab IF (S) [Titer] on 09-25-2023 Anti-Nuclear Ab Centromere Pattern TNP . [facility] Erythrocyte distribution wid th Auto (RBC) [Ratio]on 09-25-2023 Erythrocyte distribution width (RBC) [Ratio] 13.7 % 11.0-15.0 [facility] Estimated glomerular filtrat ion rate (GFR) non- Americanon 09-25-2023 GFR/1.73 sq M.predicted among non-blacks MDRD (S/P/Bld) [Vol rate/Area] 31 mL/min/{1.73_m2} Low >=60 [facility] Hematocrit Auto (Bld) [Volum e fraction]on 09-25-2023 Hematocrit (Bld) [Volume fraction] 38.8 % 36.0-48.0 [facility] Hemoglobin [Mass/volume] in Bloodon 09-25-2023 Hemoglobin (Bld) [Mass/Vol] 13.1 g/dL 12.0-16.0 [facility] Homogenous nuclear Ab patter n (S) [Titer]on 09-25-2023 Anti-Nuclear Ab Homogeneous Pattern TNP . [facility] IgA [Mass/volume] in Serum o r Plasmaon 09-25-2023 IgA [Mass/Vol] 332 mg/dL 87-352 [facility] IgG [Mass/volume] in Serum o r Plasmaon 09-25-2023 IgG [Mass/Vol] 1291 mg/dL 586-1602 [facility] IgM [Mass/volume] in Serum o r Plasmaon 09-25-2023 IgM [Mass/Vol] 206 mg/dL 26-217 [facility] Immunofixation for Urineon 0 09-25-2023 Interpretation Immunofixation (U) [Interp] Comment: . [facility] Comment on above: Presence of monoclon al protein is unclear at this time. Suggestrepeat in 3 to 6 months if clinically indicated.Performed at: [facility] [address] [id number] Director: eLx Munguia PhD, Phone: [phone] Immunoglobulin light chains. kappa.free [Mass/volume] in Serumon 09-25-2023 Immunoglobulin light chains.kappa.free (S) [Mass/Vol] 54.2 mg/L Abnormal 3.3-19.4 [facility] Immunoglobulin light chains. kappa.free/Immunoglobulin light chains.lambda.free [Rayray 09-25-2023 Immunoglobulin light chains.kappa.free/Immuno globulin light chains.lambda.free (S) [Mass ratio] 1.00 0.26-1.65 [facility] Comment on above: Performed at: [facility] [id number] [place], [place] [id number] Director: Lex Munguia PhD, Phone: [phone] Immunoglobulin light chains. lambda.free [Mass/volume] in Serum or Plasmaon 09-25-2023 Immunoglobulin light chains.lambda.free [Mass/Vol] 54.3 mg/L Abnormal 5.7-26.3 [facility] Laboratory - Chemistry and C hemistry - challengeon 09-25-2023 Albumin [Mass/Vol] 3.6 g/dL 3.4-5.0 [facility] Calcium [Mass/Vol] 9.2 mg/dL 8.5-10.1 [facility] Chloride [Moles/Vol] 101 mmol/L 98-107 [facility] CO2 [Moles/Vol] 27.2 mmol/L 21.0-32.0 [facility] Creatinine [Mass/Vol] 1.68 mg/dL High 0.55-1.02 [facility] GFR/1.73 sq M.predicted MDRD (S/P/Bld) [Vol rate/Area] 37 mL/min/{1.73_m2} Low >=60 [facility] Glucose [Mass/Vol] 125 mg/dL High 74-106 [facility] Magnesium [Mass/Vol] 1.6 mg/dL Low 1.8-2.4 [facility] Potassium [Moles/Vol] 4.5 mmol/L 3.5-5.1 [facility] Protein [Mass/Vol] 0.3 g/dL Abnormal Not Observed [facility] Sodium [Moles/Vol] 138 mmol/L 136-145 [facility] Urate [Mass/Vol] 6.5 mg/dL High 2.6-6.0 [facility] Urea nitrogen [Mass/Vol] 21.0 mg/dL High 7.0-18.0 [facility] Urea nitrogen/Creatinine [Mass ratio] 12.5 mg/mg [facility] Bilirubin Ql (U) Negative NEGATIVE [facility] Glucose (U) [Mass/Vol] Negative NEGATIVE Fi [facility] Ketones Ql (U) Negative NEGATIVE [facility] pH (U) 6.0 [pH] 5.0-9.0 [facility] Specific gravity (U) [Rel density] 1.025 1.005-1.025 [facility] Urobilinogen Qn (U) 1.0 {Samira'U}/dL 0.2-1.0 [facility] Laboratory - Specimen inform ationon 09-25-2023 Appearance (U) CLEAR CLEAR [facility] Color (U) LT. YELLOW YELLOW [facility] Laboratory - Urinalysison Leukocyte esterase Test strip Ql (U) Negative NEGATIVE [facility] Mucus Ql (Urine sed) TRACE Abnormal NONE SEEN [facility] Nitrite Ql (U) Negative NEGATIVE [facility] Protein (U) [Mass/Vol] 54.6 mg/dL High <=11.9 Fi [facility] Protein Ql (U) 30 mg/dL Abnormal NEG/TRACE [facility] Leukocytes [#/volume] correc renato for nucleated erythrocytes in Blood by Automated counon 09-25-2023 WBC corrected for nucl RBC Auto (Bld) [#/Vol] 7.7 10 3/uL 4.0-11.0 [facility] MCH Auto (RBC) [Entitic mass ]on 09-25-2023 MCH (RBC) [Entitic mass] 30.8 pg 26.7-34.0 [facility] MCHC Auto (RBC) [Mass/Vol]on 09-25-2023 MCHC (RBC) [Mass/Vol] 33.8 g/dL 29.9-35.2 Fir [facility] MCV Auto (RBC) [Entitic vol] on 09-25-2023 MCV (RBC) [Entitic vol] 91.1 fL 81.0-99.0 F [facility] Midbody Ab IF (S) [Titer]on 09-25-2023 Anti-Nuclear Ab Midbody Pattern TNP . [facility] Mitotic spindle apparatus Ab IF [Titer]on 09-25-2023 DE Spindle Apparatus Pattern TNP . [facility] Myeloperoxidase Ab [Units/vo lume] in Serum by Immunoassayon 09-25-2023 Myeloperoxidase Ab IA Qn (S) <0.2 units 0.0-0.9 [facility] No Panel Informationon 09-24 25-Hydroxy Vitamin D Total 21.8 ng/mL [facility] Comment on above: <20 ng/mL Vit D defi cient20-<30 ng/mL Vit D dcpkfkmcaefy64-253 ng/mL Vit D sufficient>100 ng/mL Potential Toxicity Anti-Nuclear Antibody Comment 2 Comment . [facility] Comment on above: Pattern Potential Di sease Association Homogeneous Systemic Lupus Erythematosus, Drug Induced Systemic Lupus Erythematosus, Chronic Autoimmune hepatitis, Juvenile Idiopathic Arthritis Speckled Sjogren Syndrome, Systemic Lupus Erythematosus, Subacute Cutaneous Lupus, Lupus, Congenital Heart Block, Mixed Connective Tissue Disease, Scleroderma-diffuse, Scleroderma-Autoimmune Myositis Overlap Syndrome, Systemic Lupus Bmpbcogfguqla-Zuwqhmzrjgq-Zjbchzpjeh Myositis Overlap Syndrome, Systemic Autoimmune Rheumatic Disease, [...] Cytopenias, Linear Scleroderma, Antiphospholipid Syndrome Performed at: [address] [id number] Director: Lex Munguia PhD, Phone: [phone] Pattern Potential Di sease Association Homogeneous Systemic Lupus Erythematosus, Drug Induced Systemic Lupus Erythematosus, Chronic Autoimmune hepatitis, Juvenile Idiopathic Arthritis Speckled Sjogren Syndrome, Systemic Lupus Erythematosus, Subacute Cutaneous Lupus, Lupus, Congenital Heart Block, Mixed Connective Tissue Disease, Scleroderma-diffuse, Scleroderma-Autoimmune Myositis Overlap Syndrome, Systemic Lupus Ruxmsudjmizue-Vhvfjjykkfv-Laixdannxx Myositis Overlap Syndrome, Systemic Autoimmune Rheumatic Disease, [...] Cytopenias, Linear Scleroderma, Antiphospholipid Syndrome Performed at: [facility] [address] [id number] Director: Lex Munguia PhD, Phone: [phone] Atypical p-ANCA <1:20 titer Neg:<1:20 [facility] Comment on above: The atypical pANCA p attern has been observed in asignificant percentage of patients with ulcerative colitis,primary sclerosing cholangitis and autoimmune hepatitis.Performed at: [facility] [id number] Director: Sam Tolbert MD, Phone: [phone] at: [facility] [id number] Director: Lex Munguia PhD, Phone: [phone] Parathyroid Hormone (Intact) 98 pg/mL Abnormal 15-65 [facility] Comment on above: Performed at: [facility] [id number] [place], [place] [id number] Director: Lex Munguia PhD, Phone: [phone] Perinuclear ANCA (p-ANCA) Antibody <1:20 titer Neg:<1:20 [facility] Comment on above: The presence of posi tive fluorescence exhibiting P-ANCA orC-ANCA patterns alone is not specific for the diagnosis ofWegener's Granulomatosis (WG) or microscopic polyangiitis.Decisions about treatment should not be based solely onANCA IFA results. The International ANCA Group Consensusrecommends follow up testing of positive sera with both HI-3 and MPO-ANCA enzyme immunoassays. As many as 5% serumsamples are positive only by EIA. Ref. AM J Clin [id number];111:507-513. Phosphorus Level 3.9 mg/dL 2.6-4.7 [facility] Protein Electrophoresis Note Comment . [facility] Comment on above: Protein electrophore sis scan will follow via computer,mail, or telesales professional delivery. Urine Bacteria TRACE #/HPF Abnormal NONE SEEN [facility] Urine Culture Reflexed NO [facility] Urine Occult Blood Negative NEGATIVE [facility] Urine Other Casts NONE SEEN #/LPF NONE SEEN [facility] Urine Other Crystals None Seen #/HPF None Seen [facility] Urine Random Creatinine 138.59 mg/dL 20.0 0-300.0 0 [facility] Urine RBC 0-2 #/HPF 0-2 [facility] Urine Squamous Epithelial Cells FEW #/LPF Abnormal NONE/RARE [facility] Urine Transitional Epithelial Cells RARE #/LPF Abnormal NONE SEEN [facility] Urine WBC 0-2 #/HPF Abnormal NONE SEEN [facility] Nuclear Ab (S) [Titer]on Anti-Nuclear Antibody Screen Positive Abnormal . [facility] Comment on above: Negative <1:80 Borde rline 1:80 Positive >1:80 Negative <1:80 Borde rline 1:80 Positive >1:80 Nuclear dots nuclear Ab maggi colette IF (S) [Titer]on 09-25-2023 Anti-Nuclear Ab Nuclear Dot Pattern TNP . [facility] Nuclear membrane pores nucle ar Ab pattern IF (S) [Titer]on 09-25-2023 DE Nuclear Membrane Pattern TNP . [facility] Nucleolar nuclear Ab pattern (S) [Titer]on 09-25-2023 Anti-Nuclear Ab Nucleolar Pattern 1:160 Abnormal . [facility] Comment on above: ICAP nomenclature: A C-8,9,10 ICAP nomenclature: A C-8,9,10 PCNA extractable nuclear Ab IF (S) [Titer]on 09-25-2023 Anti-Nuclear Ab PCNA Pattern TNP . [facility] Platelet mean volume Auto (B ld) [Entitic vol]on 09-25-2023 Platelet mean volume (Bld) [Entitic vol] 11.9 fL 9.5-13.5 [facility] Platelets Auto (Bld) [#/Vol] on 09-25-2023 Platelets (Bld) [#/Vol] 215 10 3/uL 150-450 [facility] Protein [Mass/volume] in Ser um or Plasmaon 09-25-2023 Protein [Mass/Vol] 7.6 g/dL 6.0-8.5 [facility] Proteinase 3 Ab [Units/volum e] in Serum by Immunoassayon 09-25-2023 Proteinase 3 Ab IA Qn (S) <0.2 units 0.0-0.9 [facility] RBC Auto (Bld) [#/Vol]on RBC (Bld) [#/Vol] 4.26 10 6/uL 4.20-5.40 [facility] Serum classic neutrophil cyt oplasmic antibody titer by immunofluorescenceon 09-25-2023 Neutrophil cytoplasmic Ab.classic IF (S) [Titer] <1:20 titer Neg:<1:20 [facility] Serum globulin measurement ( mass/volume)on 09-25-2023 Globulin (S) [Mass/Vol] 3.8 g/dL 2.2-3.9 [facility] Serum or plasma albumin/glob ulin mass ratioon 09-25-2023 Albumin/Globulin [Mass ratio] 1.1 {ratio} 0.7-1.7 [facility] Serum or plasma alpha 1 glob ulin measurement by electrophoresis (mass/volume)on 09-25-2023 Alpha 1 globulin Elph [Mass/Vol] 0.3 g/dL 0.0-0.4 [facility] Serum or plasma alpha 2 glob ulin measurement by electrophoresis (mass/volume)on 09-25-2023 Alpha 2 globulin Elph [Mass/Vol] 1.0 g/dL 0.4-1.0 [facility] Serum or plasma anion gap de terminationon 09-25-2023 Anion gap [Moles/Vol] 14.3 mmol/L [facility] Serum or plasma beta globuli n measurement by electrophoresis (mass/volume)on 09-25-2023 Beta globulin Elph [Mass/Vol] 1.2 g/dL 0.7-1.3 [facility] Serum or plasma gamma globul in measurement by electrophoresis (mass/volume)on 09-25-2023 Gamma globulin Elph [Mass/Vol] 1.4 g/dL 0.4-1.8 [facility] Serum or plasma immunoelectr ophoresis interpretationon 09-25-2023 Interpretation IEP [Interp] Comment Abnormal . [facility] Comment on above: Immunofixation shows IgG monoclonal protein with lambdalight chain specificity. Speckled nuclear Ab pattern (S) [Titer]on 09-25-2023 Anti-Nuclear Ab Speckled Pattern 1:320 Abnormal . [facility] Comment on above: ICAP nomenclature: A C-2,4,5,29 ICAP nomenclature: A C-2,4,5,29 Urine protein/creatinine rat ioon 09-25-2023 Protein/Creatinine (U) [Ratio] 0.39 [facility] 37on 05-11-2023 37 Referring you to a kidney doctor to help manage your reduced kidney function and uncontrolled HTN F/U with Dr Teague as scheduled- have labs drawn as he requested Call cardiology for any concerns Normal [facility] Office Visiton 05-11-2023 Follow-up visit [id number] Gagandeep Pantoja 1960 F Date Provider Department Center 05/11/2023 SHONA SULLIVAN CARD [facility] Family History Problem Relation Age of Onset Heart failure Mother Diabetes Mother Dementia Mother Other Father Family Status - Relation Status Age at Mother Father Level of Service:[id number] HI OFFICE/OUTPATIENT ESTABLISHED MOD MDM 30 MIN [facility] 36on 04-20-2023 36 Okay... I peaked at them. Looks like renal function is back to improving. Yea, let's try to stay in the loop about what's going on. Can even call Zahida's office Sunday to see what they did if she's confused about things. Normal [facility] 36 Please let her know her kidney function has further worsened along with elevated potassium. Please have her hold lisinopril - will try to resume once her kidney function returns to normal. Stop spironolactone. Increase hydralazine to 50mg TID. Follow-up BMP in 1 week. Follow-up phone call in 1 week for her BP readings. Thanks [facility] Telephoneon 04-20-2023 Telephone [id number] [facility] 1960 F Date Provider Department Center 04/20/2023 IVAN TRIVEDI Family History Problem Relation Age of Onset Heart failure Mother Diabetes Mother Dementia Mother Other Father Family Status - Relation Status Age at Mother Father [facility] 37on 04-12-2023 37 Decrease lisinopril to 10 mg daily from 20 mg because of elevated kidney function Start hydralazine 25 mg three times a day [facility] Office Visiton 04-12-2023 Follow-up visit [id number] [facility] 1960 F Date Provider Department Center 04/12/2023 SHONA SULLIVAN Family History Problem Relation Age of Onset Heart failure Mother Diabetes Mother Dementia Mother Other Father Family Status - Relation Status Age at Mother Father Level of Service:24726 HI OFFICE/OUTPATIENT ESTABLISHED MOD MDM 30 MIN [facility] Documentationon 03-20-2023 Documentation [id number] [employer] [facility] 1960 F Date Provider Department Center 03/20/2023 SHONA SULLIVAN Family History Problem Relation Age of Onset Heart failure Mother Diabetes Mother Dementia Mother Other Father Family Status - Relation Status Age at Mother Father Normal [facility] 37on 03-14-2023 35 Increase lisinopril [...] Goal b/p is less than 130/80 Normal [facility] Office Visiton 03-14-2023 Follow-up visit [id number] Gagandeep Pantoja ia 1960 F Date Provider Department Center 03/14/2023 Winsome-SHONA DE LA PAZ [facility] Family History Problem Relation Age of Onset Heart failure Mother Diabetes Mother Dementia Mother Other Father Family Status - Relation Status Age at Mother Father Level of Service:92854 HI OFFICE/OUTPATIENT ESTABLISHED MOD MDM 30 MIN Normal [facility] GROUP A STREP CULTUREon 07-10 S. pyogenes Ag Ql (Unsp spec) Culture Observations: NEGATIVE FOR GROUP A STREPTOCOCCUS. Normal [facility] Comment on above: Performed By: #### S SCRN, GRASTCX ####[facility] [address] [place], [place] [address]Nb. Marbella Jeffery STREPT SCREENon 07-19-2022 STREP SCREEN A Negative Normal NEGATIVE [place] Comment on above: Performed By: #### S SCRN, GRASTCX ####[facility] [address] [place], [place] [address]Go. Marbella Jeffery XR CHEST 2 Von 07-19-2022 [...] by: ALEX LEWIS Date: 2022-07-19 10:18 Normal [facility] CBC AUTO DIFFon 06-28-2022 BASO # 0.1 103/ul Normal 0.0-0.1 [facility] Comment on above: Performed By: #### C BC #### [facility] [address] [address] [address] Marbella Jeffery Basophils/100 WBC (Bld) 0.7 % Normal 0.2-2.0 [facility] Comment on above: Performed By: #### C BC #### [facility] [address] [address] [address] Marbella Jeffery EO # 0.2 103/ul Normal 0.0-0.7 [facility] Comment on above: Performed By: #### C BC #### [facility] [address] [place] [address] Dr. Marbella Jeffery Eosinophils/100 WBC (Bld) 1.8 % Normal 0.9-7.0 [facility] Comment on above: Performed By: #### C BC #### [facility] [address] [place] [address] Dr. Marbella Jeffery Erythrocyte distribution width (RBC) [Ratio] 13.5 % Normal 11.0-15.0 [facility] Comment on above: Performed By: #### C BC #### [facility] [address] [place] [address] Dr. Marbella Jeffery Hematocrit (Bld) [Volume fraction] 35.2 % Critically low 36.0-48.0 [facility] Comment on above: Performed By: #### C BC #### [facility] [address] [place] [address] Dr. Marbella Jeffery Hemoglobin (Bld) [Mass/Vol] 11.8 g/dL Critically low 12.0-16.0 [facility] Comment on above: Performed By: #### C BC #### [facility] [address] [place] [address] Dr. Marbella Jeffery IG # 0.02 10e3/ul Normal 0.00-0.03 [facility] Comment on above: Performed By: #### C BC #### [facility] [address] [place] [address] Dr. Marbella Jeffery IG % 0.2 % Normal 0.0-0.5 [facility] Comment on above: Performed By: #### C BC #### [facility] [address] [place] [address] Dr. Marbella Jeffery LYMPH # 2.2 103/ul Normal 1.2-3.8 [facility] Comment on above: Performed By: #### C BC #### [facility] [address] [place] [address] Dr. Marbella Jeffery Lymphocytes/100 WBC (Bld) 25.2 % Normal 20.5-60.0 [facility] Comment on above: Performed By: #### C BC #### [facility] [address] [place] [address] Dr. Marbella Jeffery MANUAL DIFF REQ NO Normal [facility] Comment on above: Performed By: #### C BC #### [facility] [address] [place] [address] Dr. Marbella Jeffery MCH (RBC) [Entitic mass] 30.3 pg Normal 26.7-34.0 [facility] Comment on above: Performed By: #### C BC #### [facility] [address] [place] [address] Dr. Marbella Jeffery MCHC (RBC) [Mass/Vol] 33.5 g/dL Normal 29.9-35.2 [facility] Comment on above: Performed By: #### C BC #### [facility] [address] [place] [address] Dr. Marbella Jeffery MCV (RBC) [Entitic vol] 90.3 fL Normal 81.0-99.0 [facility] Comment on above: Performed By: #### C BC #### [facility] [address] [place] [address] Dr. Marbella Jeffery MONO # 0.8 103/ul Normal 0.3-0.8 [facility] Comment on above: Performed By: #### C BC #### [facility] [address] [place] [address] Dr. Marbella Jeffery Monocytes/100 WBC (Bld) 9.2 % Normal 1.7-12.0 [facility] Comment on above: Performed By: #### C BC #### [facility] [address] [place] [address] Dr. Marbella Jeffery NEUT # 5.5 103/ul Normal 1.4-6.5 [facility] Comment on above: Performed By: #### C BC #### [facility] [address] [place] [address] Dr. Marbella Jeffery Neutrophils/100 WBC (Bld) 62.9 % Normal 43.0-75.0 [facility] Comment on above: Performed By: #### C BC #### [facility] [address] [place] [address] Dr. Marbella Jeffery Platelet mean volume (Bld) [Entitic vol] 11.2 fL Normal 9.5-13.5 [facility] Comment on above: Performed By: #### C BC #### [facility] [address] [place] [address] Dr. Marbella Jeffery PLT 203 103/ul Normal 150-450 [facility] Comment on above: Performed By: #### C BC #### [facility] [address] [place] [address] Dr. Marbella Jeffery RBC 3.90 106/ul Critically low 4.20-5.40 [facility] Comment on above: Performed By: #### C BC #### [facility] [address] [place] [address] Dr. Marbella Jeffery WBC 8.7 103/ul Normal 4.0-11.0 [facility] Comment on above: Performed By: #### C BC #### [facility] [address] [place] [address] Dr. Marbella Jeffery FREE THYROXINE INDEX T7on FTI 5.09 Critically high 1.30-4.50 [facility] Comment on above: Performed By: #### T SH, LIPID, CMP, T7 #### [facility] [address] [place] [address] Dr. Marbella Jeffery T3U 38.0 % Normal 30.0-39.0 [facility] Comment on above: Performed By: #### T SH, LIPID, CMP, T7 #### [facility] [address] [address] [address] Marbella Jeffery T4 [Mass/Vol] 13.40 ug/dL Normal 4.80-13.90 [place] Comment on above: Performed By: #### T SH, LIPID, CMP, T7 #### [facility] [address] [address] [address] Marbella Jeffery LIPID PROFILEon 06-28-2022 CHOL-HDL RATIO NORM SEE BELOW Normal [facility] Comment on above: Result Comment: 3.3 - 4.4 LOW RISK 4.4 - 7.1 AVERAGE RISK 7.1 - 11.0 MODERATE RISK >11.0 HIGH RISK Performed By: #### T SH, LIPID, CMP, T7 #### [facility] [address] [address] [address] Marbella Jeffery Cholesterol [Mass/Vol] 137 mg/dL Normal <=200 Th [facility] Comment on above: Performed By: #### T SH, LIPID, CMP, T7 #### [facility] [address] [address] [address] Marbella Jeffery Cholesterol in HDL [Mass/Vol] 44 mg/dL Normal 40-60 [facility] Comment on above: Performed By: #### T SH, LIPID, CMP, T7 #### [facility] [address] [address] [address] Marbella Jeffery Cholesterol in LDL [Mass/Vol] 67.2 mg/dL Normal [facility] Comment on above: Performed By: #### T SH, LIPID, CMP, T7 #### [facility] [address] [address] [address] Marbella Jeffery Cholesterol.total/Choles terol in HDL [Mass ratio] 3.1 {ratio} Normal [facility] Comment on above: Performed By: #### T SH, LIPID, CMP, T7 #### [facility] [address] [address] [address] Marbella Jeffery HDL NORMAL > or = 60 mg/dl - LO W CARDIOVASCULAR RISK <40 mg/dl - HIGH CARDIOVASCULAR RISK Normal [facility] Comment on above: Performed By: #### T SH, LIPID, CMP, T7 #### [facility] [address] [address] [address] Marbella Jeffery LDL CALC NORMAL SEE BELOW Normal [facility] Comment on above: Result Comment: <100 mg/dl OPTIMAL 100 - 129 mg/dl NEAR OR ABOVE OPTIMAL 130 - 159 mg/dl BORDERLINE HIGH 160 - 189 mg/dl HIGH >190 mg/dl VERY HIGH Performed By: #### T SH, LIPID, CMP, T7 #### [facility] [address] [address] [address] Marbella Jeffery Triglyceride [Mass/Vol] 129 mg/dL Normal <=150 T [facility] Comment on above: Performed By: #### T SH, LIPID, CMP, T7 #### [facility] [address] [address] [address] Marbella Jeffery VLDL CALC 25.8 mg/dL Normal [facility] Comment on above: Performed By: #### T SH, LIPID, CMP, T7 #### [facility] [address] [place] [address] Dr. Marbella Jeffery PROF 14(COMP METB)on 023 Albumin [Mass/Vol] 3.1 g/dL Critically low 3.4-5.0 Th [facility] Comment on above: Performed By: #### T SH, LIPID, CMP, T7 #### [facility] [address] [address] [address] Marbella Jeffery Albumin/Globulin [Mass ratio] 0.7 {ratio} Normal [facility] Comment on above: Performed By: #### T SH, LIPID, CMP, T7 #### [facility] [address] [address] [address] Marbella Jefefry ALP [Catalytic activity/Vol] 168 U/L Critically high 46-116 [facility] Comment on above: Performed By: #### T SH, LIPID, CMP, T7 #### [facility] [address] [address] [address] Marbella Jeffery ALT [Catalytic activity/Vol] 14 U/L Normal 14-59 [facility] Comment on above: Performed By: #### T SH, LIPID, CMP, T7 #### [facility] [address] [address] [address] Marbella Jeffery Anion gap [Moles/Vol] 12.8 mmol/L Normal Th e [facility] Comment on above: Performed By: #### T SH, LIPID, CMP, T7 #### [facility] [address] [address] [address] Marbella Jeffery AST [Catalytic activity/Vol] 13 U/L Critically low 15-37 [facility] Comment on above: Performed By: #### T SH, LIPID, CMP, T7 #### [facility] [address] [address] [address] Marbella Jeffery Bilirubin [Mass/Vol] 0.4 mg/dL Normal 0.2-1.0 [facility] Comment on above: Performed By: #### T SH, LIPID, CMP, T7 #### [facility] [address] [place] [address] Dr. Marbella Jeffery Calcium [Mass/Vol] 9.0 mg/dL Normal 8.5-10.1 [facility] Comment on above: Performed By: #### T SH, LIPID, CMP, T7 #### [facility] [address] [place] [address] Dr. Marbella Jeffery Chloride [Moles/Vol] 105 mmol/L Normal 98-107 [facility] Comment on above: Performed By: #### T SH, LIPID, CMP, T7 #### [facility] [address] [place] [address] Dr. Marbella Jeffery CO2 [Moles/Vol] 27.9 mmol/L Normal 21.0-32.0 [facility] Comment on above: Performed By: #### T SH, LIPID, CMP, T7 #### [facility] [address] [place] [address] Dr. Marbella Jeffery Creatinine [Mass/Vol] 1.17 mg/dL Critically high 0.55-1.02 [facility] Comment on above: Performed By: #### T SH, LIPID, CMP, T7 #### [facility] [address] [place] [address] Dr. Marbella Jeffery EGFR-AF LITHUANIAN 56 mL/min/1.73m2 Critically low >=60 [facility] Comment on above: Performed By: #### T SH, LIPID, CMP, T7 #### [facility] [address] [place] [address] Dr. Marbella Jeffery EGFR-NON AF LITHUANIAN 47 mL/min/1.73m2 Critically low >=60 [facility] Comment on above: Performed By: #### T SH, LIPID, CMP, T7 #### [facility] [address] [place] [address] Dr. Marbella Jeffery Globulin (S) [Mass/Vol] 4.5 g/dL Normal [facility] Comment on above: Performed By: #### T SH, LIPID, CMP, T7 #### [facility] [address] [place] [address] Dr. Marbella Jeffery Glucose [Mass/Vol] 105 mg/dL Normal 74-106 [facility] Comment on above: Performed By: #### T SH, LIPID, CMP, T7 #### [facility] [address] [place] [address] Dr. Marbella Jeffery Potassium [Moles/Vol] 3.7 mmol/L Normal 3.5-5.1 [facility] Comment on above: Performed By: #### T SH, LIPID, CMP, T7 #### [facility] [address] [place] [address] Dr. Marbella Jeffery Protein [Mass/Vol] 7.6 g/dL Normal 6.4-8.2 [facility] Comment on above: Performed By: #### T SH, LIPID, CMP, T7 #### [facility] [address] [place] [address] Dr. Marbella Jeffery Sodium [Moles/Vol] 142 mmol/L Normal 136-145 [facility] Comment on above: Performed By: #### T SH, LIPID, CMP, T7 #### [facility] [address] [place] [address] Dr. Marbella Jeffery Urea nitrogen [Mass/Vol] 14.0 mg/dL Normal 7.0-18.0 [facility] Comment on above: Performed By: #### T SH, LIPID, CMP, T7 #### [facility] [address] [place], [place] [address] Dr. Marbella Jeffery Urea nitrogen/Creatinine [Mass ratio] 12.0 mg/mg Normal [facility] Comment on above: Performed By: #### T CARITO, LIPID, CMP, T7 #### [facility] [address] [address] [address] Marbella Jeffery TSHon 06-28-2022 TSH Qn m[IU]/L Critically low 0.358-3.740 [facility] Comment on above: Result Comment: TEST REPEATED FOR VERIFICATION Performed By: #### T CARITO, LIPID, CMP, T7 #### [facility] [address] [address] [address] Marbella Jeffery PROF CHEM 8 (BAS METB)on Anion gap [Moles/Vol] 11.2 mmol/L Normal [facility] Comment on above: Performed By: #### B MP ####[facility] [address] [id number] Jeffery Calcium [Mass/Vol] 9.2 mg/dL Normal 8.5-10.1 [facility] Comment on above: Performed By: #### B MP ####[facility] [address] [id number] Jeffery Chloride [Moles/Vol] 102 mmol/L Normal 98-107 [facility] Comment on above: Performed By: #### B MP ####[facility] [address] [place], [place] [address]BxNaomi Jeffery CO2 [Moles/Vol] 29.3 mmol/L Normal 21.0-32.0 [facility] Comment on above: Performed By: #### B MP ####[facility] [address] [place], [place] [address]XhNaomi Jeffery Creatinine [Mass/Vol] 1.32 mg/dL Critically high 0.55-1.02 [facility] Comment on above: Performed By: #### B MP ####[facility] [address] [id number]. Nalinijv Jose D EGFR-AF LITHUANIAN 49 mL/min/1.73m2 Critically low >=60 [facility] Comment on above: Performed By: #### B MP ####[facility] [address] [id number]. Nalinijv Jose D EGFR-NON AF LITHUANIAN 41 mL/min/1.73m2 Critically low >=60 [facility] Comment on above: Performed By: #### B MP ####[facility] [address] [id number][address] Marbella Jeffery Glucose [Mass/Vol] 127 mg/dL Critically high 74-106 [facility] Comment on above: Performed By: #### B MP ####[facility] [address] [address]Dr. Marbella Jeffery Potassium [Moles/Vol] 4.5 mmol/L Normal 3.5-5.1 [facility] Comment on above: Performed By: #### B MP ####[facility] [address] [id number]. Marbella Jeffery Sodium [Moles/Vol] 138 mmol/L Normal 136-145 [facility] Comment on above: Performed By: #### B MP ####[facility] [address] [id number]. Marbella Jeffery Urea nitrogen [Mass/Vol] 20.0 mg/dL Critically high 7.0-18 .0 [facility] Comment on above: Performed By: #### B MP ####[facility] [address] [id number]. Marbella Jeffery Urea nitrogen/Creatinine [Mass ratio] 15.2 mg/mg Normal [facility] Comment on above: Performed By: #### B MP ####[facility] [address] [id number]. Marbella Jeffery NM STRESS/REST MULTIon 01-04 -2023 NM STRESS/REST MULTI Patient: DEEPTHI PANTOJA Exam Date: 03/15/2022 : 1960 Gender:F Ordering : DR YONY TEAGUE . Admission #: [id number] Family : Order #: [id number] CLICK HERE TO VIEW EXAM RADIOLOGY REPORT [...] Lewis M.D. on 03/16/2022 at 07:23 Normal [facility] CT LUNG CANCER SCREENINGon 1 05-02-2021 [...] by: ALEX LEWIS Date: 2022-03-01 08:03 Normal [facility] MRI BRAIN WO W CONon 022 [...] by: MICHAEL ELIZONDO Date: 2021-08-20 08:33 Normal [facility] CREATININEon 08-19-2021 Creatinine [Mass/Vol] 1.35 mg/dL Critically high 0.55-1.02 [facility] Comment on above: Performed By: #### C SHILO #### [facility] [address] [place] [address] Dr. Marbella Jeffery EGFR-AF LITHUANIAN 48 mL/min/1.73m2 Critically low >=60 [facility] Comment on above: Performed By: #### C SHILO #### [facility] [address] [place] [address] Dr. Marbella Jeffery EGFR-NON AF LITHUANIAN 40 mL/min/1.73m2 Critically low >=60 [facility] Comment on above: Performed By: #### C SHILO #### [facility] [address] [place] [address] Dr. Marbella Jeffery Vital Signs Date Time Vital Sign Value Performing Clinician Faci lity 09-11-2024 10:35-0400 Diastolic blood pressure 75 mm[Hg] Yony Teague MD Work Phone: [facility] 09-11-2024 10:35-0400 Systolic blood pressure 183 mm[Hg] Yony Teague MD Work Phone: [facility] 09-11-2024 10:28-0400 Body height 157.48 cm Yony Teague MD Work Phone: [facility] 09-11-2024 10:[id number] Body mass index (BMI) [Ratio] 26.6 kg/m2 Yony Teague MD Work Phone: [facility] 09-11-2024 10:[id number] Body temperature 96.7 [degF] Yony Teague MD Work Phone: [facility] 09-11-2024 10:[id number] Body weight 66.22 kg Yony Teague MD Work Phone: [facility] 09-11-2024 10:28-0400 Heart rate 61 /min Yony Teague MD Work Phone: [facility] 09-11-2024 10:28-0400 Respiratory rate 18 /min Yony Teague MD Work Phone: [facility] 09-11-2024 10:28-0400 SaO2% (BldA) [Mass fraction] 98 % Yony Teague MD Work Phone: [facility] 10-04-2023 10:43-0400 Body height 157.48 cm [facility] 10-04-2023 10:43-0400 Body mass index (BMI) [Ratio] 26.5 kg/m2 [facility] 10-04-2023 10:43-0400 Body temperature 97.5 [degF] [facility] 10-04-2023 10:43-0400 Body weight 65.82 kg [facility] 10-04-2023 10:43-0400 Diastolic blood pressure 80 mm[Hg] [facility] 10-04-2023 10:43-0400 Heart rate 60 /min [facility] 10-04-2023 10:43-0400 Respiratory rate 16 /min [facility] 10-04-2023 10:43-0400 SaO2% (BldA) [Mass fraction] 97 % [facility] 10-04-2023 10:43-0400 Systolic blood pressure 140 mm[Hg] [facility] 08-30-2023 15:45-0400 Body height 157.48 cm [facility] 08-30-2023 15:45-0400 Body mass index (BMI) [Ratio] 26.2 kg/m2 [facility] 08-30-2023 15:45-0400 Body temperature 97.4 [degF] [facility] 08-30-2023 15:45-0400 Body weight 64.86 kg [facility] 08-30-2023 15:45-0400 Diastolic blood pressure 90 mm[Hg] [facility] 08-30-2023 15:45-0400 Heart rate 73 /min [facility] 08-30-2023 15:45-0400 Respiratory rate 16 /min [facility] 08-30-2023 15:45-0400 SaO2% (BldA) [Mass fraction] 97 % [facility] 08-30-2023 15:45-0400 Systolic blood pressure 204 mm[Hg] [facility] Encounters Encounter Date Encounter Type Care Provider Facility Start: 09-11-2024 End: 09-11-2024 ambulatory Yony Teague MD Work Phone: [facility] Work Phone: Start: 09-11-2024 End: 09-11-2024 Patient encounter procedure Kerwin Andrade MD [facility] Work Phone: Start: 12-03-2023 End: 12-03-2023 ambulatory [facility] Start: 10-04-2023 End: 10-04-2023 ambulatory [facility] Work Phone: Start: 10-04-2023 End: 10-04-2023 Patient encounter procedure [facility] Work Phone: Start: 09-25-2023 Non-patient / Non-visit [facility] Work Phone: Start: 08-30-2023 End: 08-30-2023 ambulatory [facility] Work Phone: Start: 08-30-2023 End: 08-30-2023 Patient encounter procedure [facility] Work Phone: Start: 05-11-2023 End: 05-11-2023 ambulatory [facility] Start: 04-12-2023 End: 04-12-2023 ambulatory [facility] Start: 03-14-2023 End: 03-14-2023 ambulatory SHONA BRAIN [facility] Start: 07-19-2022 [...] 12-27-2017 End: 12-28-2017 Patient encounter DEFAULT PHYSICIAN Facility:[facility] Start: 12-03-2017 End: 12-04-2017 Patient encounter DEFAULT PHYSICIAN Facility:[facility] Plan of Treatment Date Care Activity Detail Author Immunofixation for Urine [facility] Renal function 1999 panel - Serum or Plasma [facility] enter Renal function 1999 panel - Serum or Plasma [facility] enter Renal function 1999 panel - Serum or Plasma [facility] enter [facility] Payers Date Payer Category Payer Medicare [id number] 2017 Unknown [id number] 1961 Medicaid [id number] 1961 Medicare [id number] 1960 Unknown [id number] 2.16.84 [id number] 1960 Unknown [id number] 2.16.84 [id number] 1960 Unknown [id number] 2.16.84 [id number] 1960 Unknown [id number] 2.16.84 [id number] 1960 Unknown [id number] 2.16.84 [id number] 1960 Unknown [id number] 2.16.84 [id number] Medicare Medicare [id number] Unknown Social History Date Type Detail Facility Start: 08-30-2023 Tobacco smoking stat [facility] Smoker (finding) [facility] Start: 1960 Sex Assigned At Female F [facility] Start: 09-11-2024 Tobacco smoking stat [facility] Smokes tobacco daily (finding) [facility] Sex Female (finding) [facility] Clinical Notes 03-14-2023 to 12-03-2023 Note Date & Type Note Facility 12-03-2023 Note [facility] Note Chief Complaint: Patient [...] and aVF. After (more content not included)... [facility] 05-11-2023 Note Pt has stopped takin g simvastatin- asked pt to resume taking simvastatin [facility] 05-11-2023 Note Currently is not nicole ing multiple antihypertensive meds- Dr Teague's office states that asked pt to hold lisinopril and has repeat labs next Sunday. I asked pt to resume taking hydralazine, imdur, aldactone. Referral to nephrology sent [facility] 05-11-2023 Note In light of noted AK I on CKD will refer pt to nephrology for further evaluation and management of renal disease and assistance with HTN managemend [facility] 05-11-2023 Note [facility]TP CARDIOLOGY PROGR [...] LV systolic function (more content not included)... [facility] 05-11-2023 Note Patient here for [...] All other systems reviewed and are negative. [facility] 04-12-2023 Note Decrease lisinopril to 10 mg daily, repeat BMP in 1 week in light she is taking Chlorthalidone, lisinopril and aldactone. Hopefully renal function improves and HTN is controlled. [facility] 04-12-2023 Note [facility]TP CARDIOLOGY PROGR [...] Affect: Mood normal. (more content not included)... [facility] 04-12-2023 Note Patient here for [...] All other systems reviewed and are negative. [facility] 04-12-2023 Note Hypertension is much improved- but renal function increased therefore decrease lisinopril to 10 mg daily and add hydralazine 25 mg tid. Repeat labs- BMP in 1 week to check renal function RTC 1 month [facility] 04-12-2023 Note Coronary artery dise ase is stable Continue GDMT continue risk factor modifications- heart healthy diet, regular exercise as tolerated and continue all medications. [facility] 03-20-2023 Note At last visit [...] De La Paz NP Division of Cardiology, [facility]- [phone] Pager- [phone] Email- [email or web address] 03-20-2023 Note At last visit [...] De La Paz NP Division of Cardiology, [facility]- [phone] Pager- [phone] Email- [email or web address] 03-14-2023 Note Will send script for meclizine for S/S of vertigo- pt to f/u with PCP for further evaluation and management [facility] 03-14-2023 Note Will add imdur to me d regime, d/w pt to call office for side effects- headache, hypotension or any concerns and she voiced understanding [facility] 03-14-2023 Note Patient here for [...] All other systems reviewed and are negative. [facility] 03-14-2023 Note [facility]TP CARDIOLOGY PROGR ESS NOTE HPI: Deepthi Pantoja is a 62 y.o. female here for 6 mo follow up chest pain, CAD, and hypertension. Says her intermittent chest pain remains unchanged. Denies SOB, LE edema, and palpitations. Had a dizzy spell that lasted 2 days around [place]. Says she feels anxious and jumpy and [...] she gets dizzy. Admits dizzy spell at [place], states that the room starts spinning and [...] echocardiogram and F/ (more content not included)... [facility] 03-14-2023 Note Coronary artery dise ase is stable Continue GDMT- ASA, coreg, zetia, simvastatin, and lisinopril continue risk factor modifications- heart healthy diet, regular exercise as tolerated and continue all medications. [facility] 03-14-2023 Note Hypertension is unco ntrolled and pt states she is taking medications daily- reports she took all meds today Increase lisinopril to 20 mg daily and add imdur 30 mg for HTN and chest pain [facility] 03-14-2023 Note [facility] No concerning sympto ms today Monitor with echocardiogram and F/u assessment of any concerning symptoms [facility] Evaluation note Diagnosis Onset Date CAD (coronary artery disease) acute CKD (chronic kidney disease) stage 3, GFR 30-59 ml/min acute Hyperlipidemia acute [id number] acute Secondary hyperparathyroidism acute [facility] Work Phone: Evaluation note* Diagnosis Onset Date Resolution Status CAD (coronary artery disease) acute CKD (chronic kidney disease) stage 3, GFR 30-59 ml/min acute Hyperlipidemia acute [id number] acute Secondary hyperparathyroidism acute CAD (coronary artery disease) acute CKD (chronic kidney disease) stage 3, GFR 30-59 ml/min acute Hyperlipidemia acute [id number] acute Hyperuricemia acute Hypomagnesemia acute MGUS (monoclonal gammopathy of unknown significance) acute Secondary hyperparathyroidism acute [facility] Work Phone: Evaluation note* Diagnosis Onset Date Resolution Status Admit Date CAD (coronary artery disease) acute September 11, 2024 10:24am CKD (chronic kidney disease) stage 3, GFR 30-59 ml/min acute September 11, 25 10:24am Hyperlipidemia acute September 11, 2024 10:24am Hypertensive chronic kidney disease with stage 1 through stage 4 chronic ki acute September 11, 2024 10:24am Hyperuricemia acute September 11, 2 025 10:24am Hypomagnesemia acute September 11, 2024 10:24am MGUS (monoclonal gammopathy of unknown significance) acute September 11, 2024 10:24am Secondary hyperparathyroidism acute September 11, 2024 10:24am [facility] Work Phone: Reason for referral (narrative)No reason for referral [facility]: Summary Purpose Family History No Family History Records FoundNo Family History Records FoundNo Family History Records Found Advance Directives Advance Directive Response Recorded Date/ Time Advance Directives No July 04 024 9:29am Chief Complaint and Reason for Visit Chief Complaint RENAL CKD / RENAL FA ILURE Reason for Visit CAD (coronary artery disease) CKD (chronic kidney disease) stage 3, GFR 30-59 ml/min Hyperlipidemia [id number] Secondary hyperparathyroidism Chief Complaint RENAL CKD / RENAL FA ILURE 6 week follow up Reason for Visit CAD (coronary artery disease) CKD (chronic kidney disease) stage 3, GFR 30-59 ml/min Hyperlipidemia [id number] Secondary hyperparathyroidism CAD (coronary artery disease) CKD (chronic kidney disease) stage 3, GFR 30-59 ml/min Hyperlipidemia [id number] Hyperuricemia Hypomagnesemia MGUS (monoclonal gammopathy of unknown significance) Secondary hyperparathyroidism Chief Complaint Admit Date RENAL 6 MONTH F/U September 11, 2024 10:24 am Reason for Visit Admit Date CAD (coronary artery disease) September 11, 2024 10:24am CKD (chronic kidney disease) stage 3, GF R 30-59 ml/min September 11, 2024 10:24am Hyperlipidemia September 11, 2024 10:24 am Hypertensive chronic kidney disease with stage 1 through stage 4 chronic ki September 11, 2024 10:24am Hyperuricemia September 11, 2024 10:24 am Hypomagnesemia September 11, 2024 10:24 am MGUS (monoclonal gammopathy of unknown s ignificance) September 11, 2024 10:24am Secondary hyperparathyroidism September 11, 2024 10:24am Additional Source Comments INFORMATION SOURCE (unrecogn ized section and content) DATE CREATED AUTHOR 01/01/2018 [facility] DATE CREATED AUTHOR AUTHOR'S ORGANIZ ATION 07/22/2022 [facility] DATE CREATED AUTHOR AUTHOR'S ORGANIZ ATION 12/04/2023 [facility] Care Teams (unrecognized sec tion and content) [...] October 04, 2023 End: October 04, 2023 Team Status: Inactive Member Role Status Dates Yony Teague MD Primary Care Provider Active Start: September 11, 2024 End: September 11, 2024 Kerwin Andrade MD Attending Provider Active Start : September 11, 2024 End: September 11, 2024 Goals (unrecognized section and content) Goals may be documented in a n alternate sectionGoals may be documented in an alternate sectionGoals may be documented in an [...] BE BASED ON THE PRIMARY CLINICAL RECORDS. [employer] provides no warranty or guarantee of the accuracy or completeness of information in this document.
[2024-09-11 12:10] LABS: Protein Creatinine Ratio Urine 0.56; Total Protein Urine Random 59.4 mg/dL (<=11.9)
[2024-09-11 12:16] LABS: Albumin Level 3.1 g/dL (3.4-5.0); Anion Gap 15.0; Blood Urea Nitrogen 22.0 mg/dL (7.0-18.0); Calcium 9.1 mg/dL (8.5-10.1); Carbon Dioxide 24.9 mmol/L (21.0-32.0); Chloride 105 mmol/L (98-107); Estimated GFR (African America 41 (>=60 mL/min/1.73m^2); Estimated GFR (Non-African Ame 33 (>=60 mL/min/1.73m^2); Glucose 98 mg/dL (74-106); Magnesium 1.8 mg/dL (1.8-2.4); Potassium 3.9 mmol/L (3.5-5.1); Sodium 141 mmol/L (136-145); Uric Acid 7.2 mg/dL (2.6-6.0)
[2024-09-11 12:19] LABS: Glucose Urine UA NEGATIVE (NEGATIVE)
[2024-09-11 12:40] LABS: Hematocrit 36.9 % (36.0-48.0); Hemoglobin 12.8 g/dL (12.0-16.0); Mean Corpuscular HGB Conc 34.7 g/dL (29.9-35.2); Mean Corpuscular Hemoglobin 30.5 pg (26.7-34.0); Mean Corpuscular Volume 87.9 fL (81.0-99.0); Platelet Count 192 10^3/uL (150-450); Red Blood Count 4.20 10^6/uL (4.20-5.40); White Blood Count 7.8 10^3/uL (4.0-11.0)
[2024-09-11 12:40] LABS: Cast Seen? SEEN #/LPF (NONE SEEN); Crystals Seen? None Seen #/HPF (None Seen)
== END 2024-09-11 11:18 | disposition home or self-care (01) ==
LOC: LAB 11:20
PROVIDERS: PCP Family Medicine; Visit Provider Internal Medicine
DX: D47.2 Monoclonal gammopathy (principal); E83.42 Hypomagnesemia; E79.0 Hyperuricemia without signs of inflammatory arthritis and tophaceous disease; E78.5 Hyperlipidemia, unspecified; N25.81 Secondary hyperparathyroidism of renal origin; I25.10 Atherosclerotic heart disease of native coronary artery without angina pectoris
CPT/HCPCS: 36415; 80069; 81001; 82306; 82570; 83735; 83970; 84156; 84550; 85027

== ENCOUNTER 2024-09-27 11:37 | Outpatient (OUT) | payer MEDICARE, SELFPAY ==
--- OUTSIDE RECORDS SUMMARY | 2024-09-27 11:42 | XMS_ITS | CCD ---
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 Name Role Phone PHYSICIAN, DEFAULT Unavailable Unavailable PHYSICIAN, DEFAULT Unavailable Unavailable YOYN TEAGUE Unavailable Unavailable PHYSICIAN, DEFAULT Unavailable Unavailable [...] Unavailable HOY ., DR BHAKTA Consulting Unavailable STRABANE, DR MICHAEL Turcios Consulting Unavailable HOY ., DR BHAKTA Admitting Unavailable HOY ., DR BHAKTA Attending Unavailable HOY ., DR BHAKTA Primary Care Unavailable HOY ., DR BHAKTA Consulting Unavailable ZIEBER, DR ALEX Palma Consulting Unavailable BRAINSHONA Hoang Attending Unavailable BRAINSHONA Hoang Attending Unavailable BRAINSHONA Hoang Attending Unavailable ELTAJM, FRANSISCOAB Attending Unavailable Yony Teague MD Primary Care Provider [phone] Kerwin Andrade MD Attending Provider Allergies Allergy Classification Reported Allergen(s) Allergy Type Date of Onset Reaction(s) Facility Acetaminophen (1 source) Acetaminophen Drug Allergy 4 [facility] Opioid Agonists (1 source) Propoxyphene Drug Allergy 4 [facility] Penicillins (antibiotic) (1 source) Penicillins Drug Allergy 4 [facility] (1 source) acetaminophen / propoxyphene; Translations: [Darvocet] Drug Allergy 2 [facility] Repository (5 sources) Penicillins; Translations: [PENICILLINS] Drug allergy (disorder) 2 AOF, Hives [facility] Repository (1 source) Darvocet-N 100 Drug allergy (disorder) 3 [facility] Repository (2 sources) Acetaminophen Drug Allergy 4 [facility] (2 sources) Propoxyphene Drug Allergy 4 [facility] (1 source) PROPOXYPHENE N-ACETAMINOPHEN; Translations: [PROPOXYPHENE N-ACETAMINOPHEN] Propensity to adverse reactions to drug (disorder) 4 [facility] Repository Medications Current Medications Medication Drug Class(es) [...] Coronary arteriosclerosis; Translations: [Atherosclerotic heart disease of [place] coronary artery without angina pectoris] Onset: 3 [...] 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 Other aftercare (1 source) halfway (current) use of aspirin; Translations: [RISK CONTROL OFFICER CURRENT USE OF ASPIRIN] Onset: 3 Episodic Other aftercare (1 source) Other moth exterminator (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; Translations: [OTH SKILLED NURSING CURRENT DRUG THERAPY] Onset: 3 Episodic Other [...] Range Facility Office Visiton 12-03-2023 Follow-up visit [id number] Gagandeep Pantoja 1960 F Date Provider Department Center 12/03/2023 LAURIE ALAN CARD [facility] Family History Problem Relation Age of Onset Heart failure Mother Diabetes Mother Dementia Mother Other Father Family Status - Relation Status Age at Mother Father Level of Service:16397 NM OFFICE/OUTPATIENT ESTABLISHED MOD MDM 30 MIN Normal [facility] Albumin [Mass/volume] in Ser um or Plasmaon 09-25-2023 Albumin [Mass/Vol] 3.8 g/dL 2.9-4.4 [facility] Centriole Ab IF (S) [Titer]o n 09-25-2023 Anti-Nuclear Ab Centriole Pattern TNP . [facility] Centromere Ab IF (S) [Titer] on 09-25-2023 Anti-Nuclear Ab Centromere Pattern TNP . [facility] Erythrocyte distribution wid th Auto (RBC) [Ratio]on 09-25-2023 Erythrocyte distribution width (RBC) [Ratio] 13.7 % 11.0-15.[address] [facility] Estimated glomerular filtrat ion rate (GFR) non- Americanon 09-25-2023 GFR/1.73 sq M.predicted among non-blacks MDRD (S/P/Bld) [Vol rate/Area] 31 mL/min/{1.73_m2} Low >=[address] [facility] Hematocrit Auto (Bld) [Volum e fraction]on 09-25-2023 Hematocrit (Bld) [Volume fraction] 38.8 % 36.0-48.[address] [facility] Hemoglobin [Mass/volume] in Bloodon 09-25-2023 Hemoglobin (Bld) [Mass/Vol] 13.1 g/dL 12.0-16.[address] [facility] Homogenous nuclear Ab patter n (S) [Titer]on 09-25-2023 Anti-Nuclear Ab Homogeneous Pattern TNP . [facility] IgA [Mass/volume] in Serum o r Plasmaon 09-25-2023 IgA [Mass/Vol] 332 mg/dL 87-[address] [facility] IgG [Mass/volume] in Serum o r Plasmaon 09-25-2023 IgG [Mass/Vol] 1291 mg/dL 586-[address] [facility] IgM [Mass/volume] in Serum o r Plasmaon 09-25-2023 IgM [Mass/Vol] 206 mg/dL 26-[address] [facility] Immunofixation for Urineon 0 09-25-2023 Interpretation Immunofixation (U) [Interp] Comment: . [facility] Comment on above: Presence of monoclon al protein is unclear at this time. Suggestrepeat in 3 to 6 months if clinically indicated.Performed at: [facility] [address] [id number] Director: Lex Munguia PhD, Phone: [phone] Immunoglobulin light chains. kappa.free [Mass/volume] in Serumon 09-25-2023 Immunoglobulin light chains.kappa.free (S) [Mass/Vol] 54.2 mg/L Abnormal 3.3-19.[address] [facility] Immunoglobulin light chains. kappa.free/Immunoglobulin light chains.lambda.free [Rayray 09-25-2023 Immunoglobulin light chains.kappa.free/Immuno globulin light chains.lambda.free (S) [Mass ratio] 1.00 0.26-1.[address] [facility] Comment on above: Performed at: [facility] [id number] [place], [place] [id number] Director: Lex Munguia PhD, Phone: [phone] Immunoglobulin light chains. lambda.free [Mass/volume] in Serum or Plasmaon 09-25-2023 Immunoglobulin light chains.lambda.free [Mass/Vol] 54.3 mg/L Abnormal 5.7-26.[address] [facility] Laboratory - Chemistry and C hemistry - challengeon 09-25-2023 Albumin [Mass/Vol] 3.6 g/dL 3.4-5.0 [facility] Calcium [Mass/Vol] 9.2 mg/dL 8.5-10.1 [facility] Chloride [Moles/Vol] 101 mmol/L 98-107 [facility] CO2 [Moles/Vol] 27.2 mmol/L 21.0-32.0 [facility] Creatinine [Mass/Vol] 1.68 mg/dL High 0.55-1.02 [facility] GFR/1.73 sq M.predicted MDRD (S/P/Bld) [Vol rate/Area] 37 mL/min/{1.73_m2} Low >=[address] [facility] Glucose [Mass/Vol] 125 mg/dL High 74-106 [facility] Magnesium [Mass/Vol] 1.6 mg/dL Low 1.8-2.4 [facility] Potassium [Moles/Vol] 4.5 mmol/L 3.5-5.1 [facility] Protein [Mass/Vol] 0.3 g/dL Abnormal Not Observed [facility] Sodium [Moles/Vol] 138 mmol/L 136-145 [facility] Urate [Mass/Vol] 6.5 mg/dL High 2.6-6.0 [facility] Urea nitrogen [Mass/Vol] 21.0 mg/dL High 7.0-18.[address] [facility] Urea nitrogen/Creatinine [Mass ratio] 12.5 mg/mg [facility] Bilirubin Ql (U) Negative NEGATIVE [facility] Glucose (U) [Mass/Vol] Negative NEGATIVE [facility] Ketones Ql (U) Negative NEGATIVE [facility] pH (U) 6.0 [pH] 5.0-9.[address] [facility] Specific gravity (U) [Rel density] 1.025 1.005-1.[address] [facility] Urobilinogen Qn (U) 1.0 {Samira'U}/dL 0.2-1.[address] [facility] Laboratory - Specimen inform ationon 09-25-2023 Appearance (U) CLEAR CLEAR [facility] Color (U) LT. YELLOW YELLOW [facility] Laboratory - Urinalysison Leukocyte esterase Test strip Ql (U) Negative NEGATIVE [facility] Mucus Ql (Urine sed) TRACE Abnormal NONE SEEN [facility] Nitrite Ql (U) Negative NEGATIVE [facility] Protein (U) [Mass/Vol] 54.6 mg/dL High <=11.9 [facility] Protein Ql (U) 30 mg/dL Abnormal NEG/TRACE [facility] Leukocytes [#/volume] correc renato for nucleated erythrocytes in Blood by Automated counon 09-25-2023 WBC corrected for nucl RBC Auto (Bld) [#/Vol] 7.7 10 3/uL 4.0-11.[address] [facility] MCH Auto (RBC) [Entitic mass ]on 09-25-2023 MCH (RBC) [Entitic mass] 30.8 pg 26.7-34.[address] [facility] MCHC Auto (RBC) [Mass/Vol]on 09-25-2023 MCHC (RBC) [Mass/Vol] 33.8 g/dL 29.9-35.2 [facility] MCV Auto (RBC) [Entitic vol] on 09-25-2023 MCV (RBC) [Entitic vol] 91.1 fL 81.0-99.0 [facility] Midbody Ab IF (S) [Titer]on 09-25-2023 Anti-Nuclear Ab Midbody Pattern TNP . [facility] Mitotic spindle apparatus Ab IF [Titer]on 09-25-2023 DE Spindle Apparatus Pattern TNP . [facility] Myeloperoxidase Ab [Units/vo lume] in Serum by Immunoassayon 09-25-2023 Myeloperoxidase Ab IA Qn (S) <0.2 units 0.0-0.[address] [facility] No Panel Informationon 09-24 25-Hydroxy Vitamin D Total 21.8 ng/mL [facility] Comment on above: <20 ng/mL Vit D defi cient20-<30 ng/mL Vit D [id number] ng/mL Vit D sufficient>100 ng/mL Potential Toxicity Anti-Nuclear Antibody Comment [address] [facility] Comment on above: Pattern Potential Di sease Association Homogeneous Systemic Lupus Erythematosus, Drug Induced Systemic Lupus Erythematosus, Chronic Autoimmune hepatitis, Juvenile Idiopathic Arthritis Speckled Sjogren Syndrome, Systemic Lupus Erythematosus, Subacute Cutaneous Lupus, Lupus, Congenital Heart Block, Mixed Connective Tissue Disease, Scleroderma-diffuse, Scleroderma-Autoimmune Myositis Overlap Syndrome, Systemic Lupus Bhjozoqxvvvfx-Jtyoasfsvmt-Gldhllwlgg Myositis Overlap Syndrome, Systemic Autoimmune Rheumatic Disease, [...] Cytopenias, Linear Scleroderma, Antiphospholipid Syndrome Performed at: [address] [id number] Director: Lex Munguia PhD, Phone: [phone] Pattern Potential Di sease Association Homogeneous Systemic Lupus Erythematosus, Drug Induced Systemic Lupus Erythematosus, Chronic Autoimmune hepatitis, Juvenile Idiopathic Arthritis Speckled Sjogren Syndrome, Systemic Lupus Erythematosus, Subacute Cutaneous Lupus, Lupus, Congenital Heart Block, Mixed Connective Tissue Disease, Scleroderma-diffuse, Scleroderma-Autoimmune Myositis Overlap Syndrome, Systemic Lupus Uiwygbbtsamlj-Cosxegltdrq-Sosaepovlz Myositis Overlap Syndrome, Systemic Autoimmune Rheumatic Disease, [...] Cytopenias, Linear Scleroderma, Antiphospholipid Syndrome Performed at: [facility] [address] [id number] Director: Lex Munguia PhD, Phone: [phone] Atypical p-ANCA <1:20 titer Neg:<1:20 [facility] Comment on above: The atypical pANCA p attern has been observed in asignificant percentage of patients with ulcerative colitis,primary sclerosing cholangitis and autoimmune hepatitis.Performed at: [facility] [id number] Director: Sam Tolbert MD, Phone: [phone] at: [facility] [id number] Director: Lex Munguia PhD, Phone: [phone] Parathyroid Hormone (Intact) 98 pg/mL Abnormal 15-[address] [facility] Comment on above: Performed at: [facility] [id number] [place], [place] [id number] Director: Lex Munguia PhD, Phone: [phone] Perinuclear ANCA (p-ANCA) Antibody <1:20 titer Neg:<1:[address] [facility] Comment on above: The presence of posi tive fluorescence exhibiting P-ANCA orC-ANCA patterns alone is not specific for the diagnosis ofWegener's Granulomatosis (WG) or microscopic polyangiitis.Decisions about treatment should not be based solely onANCA IFA results. The International ANCA Group Consensusrecommends follow up testing of positive sera with both NM-3 and MPO-ANCA enzyme immunoassays. As many as 5% serumsamples are positive only by EIA. Ref. AM J Clin [id number];111:507-513. Phosphorus Level 3.9 mg/dL 2.6-4.7 [facility] Protein Electrophoresis Note Comment . [facility] Comment on above: Protein electrophore sis scan will follow via computer,mail, or qa manager delivery. Urine Bacteria TRACE #/HPF Abnormal NONE SEEN [facility] Urine Culture Reflexed NO [facility] Urine Occult Blood Negative NEGATIVE [facility] Urine Other Casts NONE SEEN #/LPF NONE SEEN [facility] Urine Other Crystals None Seen #/HPF None Seen [facility] Urine Random Creatinine 138.59 mg/dL 20.0 0-300.[address] [facility] Urine RBC 0-2 #/HPF 0-[address] [facility] Urine Squamous Epithelial Cells FEW #/LPF Abnormal NONE/RARE [facility] Urine Transitional Epithelial Cells RARE #/LPF Abnormal NONE SEEN [facility] Urine WBC 0-2 #/HPF Abnormal NONE SEEN [facility] Nuclear Ab (S) [Titer]on Anti-Nuclear Antibody Screen Positive Abnormal . [facility] Comment on above: Negative <1:80 Borde rline 1:80 Positive >1:80 Negative <1:80 Borde rline 1:80 Positive >1:80 Nuclear dots nuclear Ab maggi colette IF (S) [Titer]on 09-25-2023 Anti-Nuclear Ab Nuclear Dot Pattern TNP . [facility] Nuclear membrane pores nucle ar Ab pattern IF (S) [Titer]on 09-25-2023 DE Nuclear Membrane Pattern TNP . [facility] Nucleolar nuclear Ab pattern (S) [Titer]on 09-25-2023 Anti-Nuclear Ab Nucleolar Pattern 1:160 Abnormal . [facility] Comment on above: ICAP nomenclature: A C-8,9,10 ICAP nomenclature: A C-8,9,10 PCNA extractable nuclear Ab IF (S) [Titer]on 09-25-2023 Anti-Nuclear Ab PCNA Pattern TNP . [facility] Platelet mean volume Auto (B ld) [Entitic vol]on 09-25-2023 Platelet mean volume (Bld) [Entitic vol] 11.9 fL 9.5-13.[address] [facility] Platelets Auto (Bld) [#/Vol] on 09-25-2023 Platelets (Bld) [#/Vol] 215 10 3/uL 150-[address] [facility] Protein [Mass/volume] in Ser um or Plasmaon 09-25-2023 Protein [Mass/Vol] 7.6 g/dL 6.0-8.5 [facility] Proteinase 3 Ab [Units/volum e] in Serum by Immunoassayon 09-25-2023 Proteinase 3 Ab IA Qn (S) <0.2 units 0.0-0.[address] [facility] RBC Auto (Bld) [#/Vol]on RBC (Bld) [#/Vol] 4.26 10 6/uL 4.20-5.40 [facility] Serum classic neutrophil cyt oplasmic antibody titer by immunofluorescenceon 09-25-2023 Neutrophil cytoplasmic Ab.classic IF (S) [Titer] <1:20 titer Neg:<1:[address] [facility] Serum globulin measurement ( mass/volume)on 09-25-2023 Globulin (S) [Mass/Vol] 3.8 g/dL 2.2-3.9 [facility] Serum or plasma albumin/glob ulin mass ratioon 09-25-2023 Albumin/Globulin [Mass ratio] 1.1 {ratio} 0.7-1.[address] [facility] Serum or plasma alpha 1 glob ulin measurement by electrophoresis (mass/volume)on 09-25-2023 Alpha 1 globulin Elph [Mass/Vol] 0.3 g/dL 0.0-0.[address] [facility] Serum or plasma alpha 2 glob ulin measurement by electrophoresis (mass/volume)on 09-25-2023 Alpha 2 globulin Elph [Mass/Vol] 1.0 g/dL 0.4-1.[address] [facility] Serum or plasma anion gap de terminationon 09-25-2023 Anion gap [Moles/Vol] 14.3 mmol/L [facility] Serum or plasma beta globuli n measurement by electrophoresis (mass/volume)on 09-25-2023 Beta globulin Elph [Mass/Vol] 1.2 g/dL 0.7-1.[address] [facility] Serum or plasma gamma globul in measurement by electrophoresis (mass/volume)on 09-25-2023 Gamma globulin Elph [Mass/Vol] 1.4 g/dL 0.4-1.[address] [facility] Serum or plasma immunoelectr ophoresis interpretationon 09-25-2023 Interpretation IEP [Interp] Comment Abnormal . [facility] Comment on above: Immunofixation shows IgG monoclonal protein with lambdalight chain specificity. Speckled nuclear Ab pattern (S) [Titer]on 09-25-2023 Anti-Nuclear Ab Speckled Pattern 1:320 Abnormal . [facility] Comment on above: ICAP nomenclature: A C-2,4,5,29 ICAP nomenclature: A C-2,4,5,29 Urine protein/creatinine rat ioon 09-25-2023 Protein/Creatinine (U) [Ratio] 0.[address] [facility] 37on 05-11-2023 37 Referring you to a kidney doctor to help manage your reduced kidney function and uncontrolled HTN F/U with Dr Teague as scheduled- have labs drawn as he requested Call cardiology for any concerns Normal [facility] Office Visiton 05-11-2023 Follow-up visit [id number] Gagandeep Pantoja 1960 F Date Provider Department Center 05/11/2023 SHONA SULLIVAN CARD [facility] Family History Problem Relation Age of Onset Heart failure Mother Diabetes Mother Dementia Mother Other Father Family Status - Relation Status Age at Mother Father Level of Service:08269 NM OFFICE/OUTPATIENT ESTABLISHED MOD MDM 30 MIN [facility] 36on 04-20-2023 36 Okay... I peaked at them. Looks like renal function is back to improving. Yea, let's try to stay in the loop about what's going on. Can even call Zahida's office Sunday to see what they did if she's confused about things. Normal [facility] 36 Please let her know her kidney function has further worsened along with elevated potassium. Please have her hold lisinopril - will try to resume once her kidney function returns to normal. Stop spironolactone. Increase hydralazine to 50mg TID. Follow-up BMP in 1 week. Follow-up phone call in 1 week for her BP readings. Thanks [facility] Telephoneon 04-20-2023 Telephone [id number] [facility] 1960 F Date Provider Department Center 04/20/2023 IVAN TRIVEDI Family History Problem Relation Age of Onset Heart failure Mother Diabetes Mother Dementia Mother Other Father Family Status - Relation Status Age at Mother Father [facility] 37on 04-12-2023 37 Decrease lisinopril to 10 mg daily from 20 mg because of elevated kidney function Start hydralazine 25 mg three times a day [facility] Office Visiton 04-12-2023 Follow-up visit [id number] [facility] 1960 F Date Provider Department Center 04/12/2023 SHONA SULLIVAN Family History Problem Relation Age of Onset Heart failure Mother Diabetes Mother Dementia Mother Other Father Family Status - Relation Status Age at Mother Father Level of Service:79236 NM OFFICE/OUTPATIENT ESTABLISHED MOD MDM 30 MIN [facility] Documentationon 03-20-2023 Documentation [id number] [facility] 1960 F Date Provider Department Center 03/20/2023 SHONA SULLIVAN Family History Problem Relation Age of Onset Heart failure Mother Diabetes Mother Dementia Mother Other Father Family Status - Relation Status Age at Mother Father Normal [facility] 37on 03-14-2023 37 Increase lisinopril to 20 [...] is less than 130/80 Normal [facility] Office Visiton 03-14-2023 Follow-up visit [id number] Gagandeep Pantoja ia 1960 F Date Provider Department Center 03/14/2023 Winsome-SHONA DE LA PAZ CARD [facility] Family History Problem Relation Age of Onset Heart failure Mother Diabetes Mother Dementia Mother Other Father Family Status - Relation Status Age at Mother Father Level of Service:81881 NM OFFICE/OUTPATIENT ESTABLISHED MOD MDM 30 MIN Normal [facility] GROUP A STREP CULTUREon 07-10 S. pyogenes Ag Ql (Unsp spec) Culture Observations: NEGATIVE FOR GROUP A STREPTOCOCCUS. Normal [facility] Comment on above: Performed By: #### S SCRN, GRASTCX ####[facility] [id number] [place], [place] [address]Pb. Marbella Jeffery STREPT SCREENon 07-19-2022 STREP SCREEN A Negative Normal NEGATIVE [facility] Comment on above: Performed By: #### S SCRN, GRASTCX ####[facility] [id number] [place], [place] [address]Nm. Marbella Jeffery XR CHEST 2 Von 07-19-2022 [...] by: ALEX LEWIS Date: 2022-07-19 10:18 Normal [facility] CBC AUTO DIFFon 06-28-2022 BASO # 0.1 103/ul Normal 0.0-0.1 [facility] Comment on above: Performed By: #### C BC #### [facility] [address] [address] [address] Marbella Jeffery Basophils/100 WBC (Bld) 0.7 % Normal 0.2-2.0 [facility] Comment on above: Performed By: #### C BC #### [facility] [address] [address] [address] Marbella Jeffery EO # 0.2 103/ul Normal 0.0-0.7 [facility] Comment on above: Performed By: #### C BC #### [facility] [address] [place] [address] Dr. Marbella Jeffery Eosinophils/100 WBC (Bld) 1.8 % Normal 0.9-7.0 [facility] Comment on above: Performed By: #### C BC #### [facility] [address] [place] [address] Dr. Marbella Jeffery Erythrocyte distribution width (RBC) [Ratio] 13.5 % Normal 11.0-15.0 [facility] Comment on above: Performed By: #### C BC #### [facility] [address] [place] [address] Dr. Marbella Jeffery Hematocrit (Bld) [Volume fraction] 35.2 % Critically low 36.0-48.0 [facility] Comment on above: Performed By: #### C BC #### [facility] [address] [place] [address] Dr. Marbella Jeffery Hemoglobin (Bld) [Mass/Vol] 11.8 g/dL Critically low 12.0-16.0 [facility] Comment on above: Performed By: #### C BC #### [facility] [address] [place] [address] Dr. Marbella Jeffery IG # 0.02 10e3/ul Normal 0.00-0.03 [facility] Comment on above: Performed By: #### C BC #### [facility] [address] [place] [address] Dr. Marbella Jeffery IG % 0.2 % Normal 0.0-0.5 [facility] Comment on above: Performed By: #### C BC #### [facility] [address] [place] [address] Dr. Marbella Jeffery LYMPH # 2.2 103/ul Normal 1.2-3.8 [facility] Comment on above: Performed By: #### C BC #### [facility] [address] [place] [address] Dr. Marbella Jeffery Lymphocytes/100 WBC (Bld) 25.2 % Normal 20.5-60.0 [facility] Comment on above: Performed By: #### C BC #### [facility] [address] [place] [address] Dr. Marbella Jeffery MANUAL DIFF REQ NO Normal [facility] Comment on above: Performed By: #### C BC #### [facility] [address] [place] [address] Dr. Marbella Jeffery MCH (RBC) [Entitic mass] 30.3 pg Normal 26.7-34.0 [facility] Comment on above: Performed By: #### C BC #### [facility] [address] [place] [address] Dr. Marbella Jeffery MCHC (RBC) [Mass/Vol] 33.5 g/dL Normal 29.9-35.2 [facility] Comment on above: Performed By: #### C BC #### [facility] [address] [place] [address] Dr. Marbella Jeffery MCV (RBC) [Entitic vol] 90.3 fL Normal 81.0-99.0 [facility] Comment on above: Performed By: #### C BC #### [facility] [address] [place] [address] Dr. Marbella Jeffery MONO # 0.8 103/ul Normal 0.3-0.8 [facility] Comment on above: Performed By: #### C BC #### [facility] [address] [place] [address] Dr. Marbella Jeffery Monocytes/100 WBC (Bld) 9.2 % Normal 1.7-12.0 [facility] Comment on above: Performed By: #### C BC #### [facility] [address] [place] [address] Dr. Marbella Jeffery NEUT # 5.5 103/ul Normal 1.4-6.5 [facility] Comment on above: Performed By: #### C BC #### [facility] [address] [place] [address] Dr. Marbella Jeffery Neutrophils/100 WBC (Bld) 62.9 % Normal 43.0-75.0 [facility] Comment on above: Performed By: #### C BC #### [facility] [address] [place] [address] Dr. Marbella Jeffery Platelet mean volume (Bld) [Entitic vol] 11.2 fL Normal 9.5-13.5 [facility] Comment on above: Performed By: #### C BC #### [facility] [address] [place] [address] Dr. Marbella Jeffery PLT 203 103/ul Normal 150-450 [facility] Comment on above: Performed By: #### C BC #### [facility] [address] [place] [address] Dr. Marbella Jeffery RBC 3.90 106/ul Critically low 4.20-5.40 [facility] Comment on above: Performed By: #### C BC #### [facility] [address] [place] [address] Dr. Marbella Jeffery WBC 8.7 103/ul Normal 4.0-11.0 [facility] Comment on above: Performed By: #### C BC #### [facility] [address] [place] [address] Dr. Marbella Jeffery FREE THYROXINE INDEX T7on FTI 5.09 Critically high 1.30-4.50 [facility] Comment on above: Performed By: #### T SH, LIPID, CMP, T7 #### [facility] [address] [place] [address] Dr. Marbella Jeffery T3U 38.0 % Normal 30.0-39.0 [facility] Comment on above: Performed By: #### T SH, LIPID, CMP, T7 #### [facility] [address] [address] [address] Marbella Jeffery T4 [Mass/Vol] 13.40 ug/dL Normal 4.80-13.90 [facility] Comment on above: Performed By: #### T SH, LIPID, CMP, T7 #### [facility] [address] [address] [address] Marbella Jeffery LIPID PROFILEon 06-28-2022 CHOL-HDL RATIO NORM SEE BELOW Normal [facility] Comment on above: Result Comment: 3.3 - 4.4 LOW RISK 4.4 - 7.1 AVERAGE RISK 7.1 - 11.0 MODERATE RISK >11.0 HIGH RISK Performed By: #### T SH, LIPID, CMP, T7 #### [facility] [address] [address] [address] Marbella Jeffery Cholesterol [Mass/Vol] 137 mg/dL Normal <=200 [facility] Comment on above: Performed By: #### T SH, LIPID, CMP, T7 #### [facility] [address] [address] [address] Marbella Jeffery Cholesterol in HDL [Mass/Vol] 44 mg/dL Normal 40-60 [facility] Comment on above: Performed By: #### T SH, LIPID, CMP, T7 #### [facility] [address] [address] [address] Marbella Jeffery Cholesterol in LDL [Mass/Vol] 67.2 mg/dL Normal [facility] Comment on above: Performed By: #### T SH, LIPID, CMP, T7 #### [facility] [address] [address] [address] Marbella Jeffery Cholesterol.total/Choles terol in HDL [Mass ratio] 3.1 {ratio} Normal [facility] Comment on above: Performed By: #### T SH, LIPID, CMP, T7 #### [facility] [address] [address] [address] Marbella Jeffery HDL NORMAL > or = 60 mg/dl - LO W CARDIOVASCULAR RISK <40 mg/dl - HIGH CARDIOVASCULAR RISK Normal [facility] Comment on above: Performed By: #### T SH, LIPID, CMP, T7 #### [facility] [address] [address] [address] Marbella Jeffery LDL CALC NORMAL SEE BELOW Normal [facility] Comment on above: Result Comment: <100 mg/dl OPTIMAL 100 - 129 mg/dl NEAR OR ABOVE OPTIMAL 130 - 159 mg/dl BORDERLINE HIGH 160 - 189 mg/dl HIGH >190 mg/dl VERY HIGH Performed By: #### T SH, LIPID, CMP, T7 #### [facility] [address] [address] [address] Marbella Jeffery Triglyceride [Mass/Vol] 129 mg/dL Normal <=150 T [facility] Comment on above: Performed By: #### T SH, LIPID, CMP, T7 #### [facility] [address] [address] [address] Marbella Jeffery VLDL CALC 25.8 mg/dL Normal [facility] Comment on above: Performed By: #### T SH, LIPID, CMP, T7 #### [facility] [address] [place] [address] Dr. Marbella Jeffery PROF 14(COMP METB)on 023 Albumin [Mass/Vol] 3.1 g/dL Critically low 3.4-5.0 [facility] Comment on above: Performed By: #### T SH, LIPID, CMP, T7 #### [facility] [address] [address] [address] Marbella Jeffery Albumin/Globulin [Mass ratio] 0.7 {ratio} Normal [facility] Comment on above: Performed By: #### T SH, LIPID, CMP, T7 #### [facility] [address] [address] [address] Marbella Jeffery ALP [Catalytic activity/Vol] 168 U/L Critically high 46-116 [facility] Comment on above: Performed By: #### T SH, LIPID, CMP, T7 #### [facility] [address] [address] [address] Marbella Jeffery ALT [Catalytic activity/Vol] 14 U/L Normal 14-59 [facility] Comment on above: Performed By: #### T SH, LIPID, CMP, T7 #### [facility] [address] [address] [address] Marbella Jeffery Anion gap [Moles/Vol] 12.8 mmol/L Normal Th e [facility] Comment on above: Performed By: #### T SH, LIPID, CMP, T7 #### [facility] [address] [address] [address] Marbella Jeffery AST [Catalytic activity/Vol] 13 U/L Critically low 15-37 [facility] Comment on above: Performed By: #### T SH, LIPID, CMP, T7 #### [facility] [address] [address] [address] Marbella Jeffery Bilirubin [Mass/Vol] 0.4 mg/dL Normal 0.2-1.0 [facility] Comment on above: Performed By: #### T SH, LIPID, CMP, T7 #### [facility] [address] [place] [address] Dr. Marbella Jeffery Calcium [Mass/Vol] 9.0 mg/dL Normal 8.5-10.1 [facility] Comment on above: Performed By: #### T SH, LIPID, CMP, T7 #### [facility] [address] [place] [address] Dr. Marbella Jeffery Chloride [Moles/Vol] 105 mmol/L Normal 98-107 [facility] Comment on above: Performed By: #### T SH, LIPID, CMP, T7 #### [facility] [address] [place] [address] Dr. Marbella Jeffery CO2 [Moles/Vol] 27.9 mmol/L Normal 21.0-32.[address] [facility] Comment on above: Performed By: #### T SH, LIPID, CMP, T7 #### [facility] [address] [place] [address] Dr. Marbella Jeffery Creatinine [Mass/Vol] 1.17 mg/dL Critically high 0.55-1.02 [facility] Comment on above: Performed By: #### T SH, LIPID, CMP, T7 #### [facility] [address] [place] [address] Dr. Marbella Jeffery EGFR-AF ALGERIAN 56 mL/min/1.73m2 Critically low >=60 [facility] Comment on above: Performed By: #### T SH, LIPID, CMP, T7 #### [facility] [address] [place] [address] Dr. Marbella Jeffery EGFR-NON AF ALGERIAN 47 mL/min/1.73m2 Critically low >=60 [facility] Comment on above: Performed By: #### T SH, LIPID, CMP, T7 #### [facility] [address] [place] [address] Dr. Marbella Jeffery Globulin (S) [Mass/Vol] 4.5 g/dL Normal [facility] Comment on above: Performed By: #### T SH, LIPID, CMP, T7 #### [facility] [address] [place] [address] Dr. Marbella Jeffery Glucose [Mass/Vol] 105 mg/dL Normal 74-106 [facility] Comment on above: Performed By: #### T SH, LIPID, CMP, T7 #### [facility] [address] [place] [address] Dr. Marbella Jeffery Potassium [Moles/Vol] 3.7 mmol/L Normal 3.5-5.1 [facility] Comment on above: Performed By: #### T SH, LIPID, CMP, T7 #### [facility] [address] [place] [address] Dr. Marbella Jeffery Protein [Mass/Vol] 7.6 g/dL Normal 6.4-8.2 [facility] Comment on above: Performed By: #### T SH, LIPID, CMP, T7 #### [facility] [address] [place] [address] Dr. Marbella Jeffery Sodium [Moles/Vol] 142 mmol/L Normal 136-145 [facility] Comment on above: Performed By: #### T SH, LIPID, CMP, T7 #### [facility] [address] [place] [address] Dr. Marbella Jeffery Urea nitrogen [Mass/Vol] 14.0 mg/dL Normal 7.0-18.0 [facility] Comment on above: Performed By: #### T SH, LIPID, CMP, T7 #### [facility] [address] [place], [place] [address] Dr. Marbella Jeffery Urea nitrogen/Creatinine [Mass ratio] 12.0 mg/mg Normal [facility] Comment on above: Performed By: #### T CARITO, LIPID, CMP, T7 #### [facility] [address] [address] [address] Marbella Jeffery TSHon 06-28-2022 TSH Qn m[IU]/L Critically low 0.358-3.740 [facility] Comment on above: Result Comment: TEST REPEATED FOR VERIFICATION Performed By: #### T CARITO, LIPID, CMP, T7 #### [facility] [address] [address] [address] Marbella Jeffery PROF CHEM 8 (BAS METB)on Anion gap [Moles/Vol] 11.2 mmol/L Normal [facility] Comment on above: Performed By: #### B MP ####[facility] [address] [address]DrNaomi Jeffery Calcium [Mass/Vol] 9.2 mg/dL Normal 8.5-10.1 [facility] Comment on above: Performed By: #### B MP ####[facility] [address] [address]DrNaomi Jeffery Chloride [Moles/Vol] 102 mmol/L Normal 98-107 [facility] Comment on above: Performed By: #### B MP ####[facility] [address] [place], [place] [address]EmNaomi Jeffery CO2 [Moles/Vol] 29.3 mmol/L Normal 21.0-32.[address] [facility] Comment on above: Performed By: #### B MP ####[facility] [address] [place], [place] [address]QkNaomi Jeffery Creatinine [Mass/Vol] 1.32 mg/dL Critically high 0.55-1.02 [facility] Comment on above: Performed By: #### B MP ####[facility] [address] [address]Dr. Nalinijv Jose D EGFR-AF ALGERIAN 49 mL/min/1.73m2 Critically low >=60 [facility] Comment on above: Performed By: #### B MP ####[facility] [address] [address]Dr. Nalinijv Jose D EGFR-NON AF ALGERIAN 41 mL/min/1.73m2 Critically low >=60 [facility] Comment on above: Performed By: #### B MP ####[facility] [address] [address]Dr. Marbella Jeffery Glucose [Mass/Vol] 127 mg/dL Critically high 74-106 [facility] Comment on above: Performed By: #### B MP ####[facility] [address] [address]Dr. Marbella Jeffery Potassium [Moles/Vol] 4.5 mmol/L Normal 3.5-5.1 [facility] Comment on above: Performed By: #### B MP ####[facility] [address] [address]Dr. Marbella Jeffery Sodium [Moles/Vol] 138 mmol/L Normal 136-145 [facility] Comment on above: Performed By: #### B MP ####[facility] [address] [address]Dr. Marbella Jeffery Urea nitrogen [Mass/Vol] 20.0 mg/dL Critically high 7.0-18 .0 [facility] Comment on above: Performed By: #### B MP ####[facility] [address] [address]Dr. Marbella Jeffery Urea nitrogen/Creatinine [Mass ratio] 15.2 mg/mg Normal [facility] Comment on above: Performed By: #### B MP ####[facility] [address] [address]Dr. Marbella Jeffery NM STRESS/REST MULTIon 01-04 -2023 NM STRESS/REST MULTI Patient: DEEPTHI PANTOJA Exam Date: 03/15/2022 : 1960 Gender:F Ordering : DR YONY TEAGUE . Admission #: [id number] Family : Order #: [id number] CLICK HERE TO VIEW EXAM RADIOLOGY REPORT [...] Lewis M.D. on 03/16/2022 at 07:23 Normal [facility] CT LUNG CANCER SCREENINGon 1 05-02-2021 CT [...] by: ALEX LEWIS Date: 2022-03-01 08:03 Normal [facility] MRI BRAIN WO W CONon 022 MRI [...] by: MICHAEL ELIZONDO Date: 2021-08-20 08:33 Normal [facility] CREATININEon 08-19-2021 Creatinine [Mass/Vol] 1.35 mg/dL Critically high 0.55-1.02 [facility] Comment on above: Performed By: #### C SHILO #### [facility] [address] [place] [address] Dr. Marbella Jeffery EGFR-AF ALGERIAN 48 mL/min/1.73m2 Critically low >=60 [facility] Comment on above: Performed By: #### C SHILO #### [facility] [address] [place] [address] Dr. Marbella Jeffery EGFR-NON AF ALGERIAN 40 mL/min/1.73m2 Critically low >=60 [facility] Comment on above: Performed By: #### C SHILO #### [facility] [address] [place] [address] Dr. Marbella Jeffery Vital Signs Date Time Vital Sign Value Performing Clinician Faci lity 09-11-2024 10:35-0400 Diastolic blood pressure 75 mm[Hg] Yony Teague MD Work Phone: [facility] 09-11-2024 10:35-0400 Systolic blood pressure 183 mm[Hg] Yony Teague MD Work Phone: [facility] 09-11-2024 10:28-0400 Body height 157.48 cm Yony Teague MD Work Phone: [facility] 09-11-2024 10:[id number] Body mass index (BMI) [Ratio] 26.6 kg/m2 Yony Teague MD Work Phone: [facility] 09-11-2024 10:28040 Body temperature 96.7 [degF] Yony Teague MD Work Phone: [facility] 09-11-2024 10:28040 Body weight 66.22 kg Yony Teague MD Work Phone: [facility] 09-11-2024 10:28-0400 Heart rate 61 /min Yony Teague MD Work Phone: [facility] 09-11-2024 10:28-0400 Respiratory rate 18 /min Yony Teague MD Work Phone: [facility] 09-11-2024 10:28-0400 SaO2% (BldA) [Mass fraction] 98 % Yony Teague MD Work Phone: [facility] 10-04-2023 10:43-0400 Body height 157.48 cm [facility] 10-04-2023 10:43-0400 Body mass index (BMI) [Ratio] 26.5 kg/m2 [facility] 10-04-2023 10:43-0400 Body temperature 97.5 [degF] [facility] 10-04-2023 10:43-0400 Body weight 65.82 kg [facility] 10-04-2023 10:43-0400 Diastolic blood pressure 80 mm[Hg] [facility] 10-04-2023 10:43-0400 Heart rate 60 /min [facility] 10-04-2023 10:43-0400 Respiratory rate 16 /min [facility] 10-04-2023 10:43-0400 SaO2% (BldA) [Mass fraction] 97 % [facility] 10-04-2023 10:43-0400 Systolic blood pressure 140 mm[Hg] [facility] 08-30-2023 15:45-0400 Body height 157.48 cm [facility] 08-30-2023 15:45-0400 Body mass index (BMI) [Ratio] 26.2 kg/m2 [facility] 08-30-2023 15:45-0400 Body temperature 97.4 [degF] [facility] 08-30-2023 15:45-0400 Body weight 64.86 kg [facility] 08-30-2023 15:45-0400 Diastolic blood pressure 90 mm[Hg] [facility] 08-30-2023 15:45-0400 Heart rate 73 /min [facility] 08-30-2023 15:45-0400 Respiratory rate 16 /min [facility] 08-30-2023 15:45-0400 SaO2% (BldA) [Mass fraction] 97 % [facility] 08-30-2023 15:45-0400 Systolic blood pressure 204 mm[Hg] [facility] Encounters Encounter Date Encounter Type Care Provider Facility Start: 09-11-2024 End: 09-11-2024 ambulatory Yony Teague MD Work Phone: [facility] Work Phone: Start: 09-11-2024 End: 09-11-2024 Patient encounter procedure Kerwin Andrade MD -[facility] Work Phone: Start: 12-03-2023 End: 12-03-2023 ambulatory [facility] Start: 10-04-2023 End: 10-04-2023 ambulatory [facility] Work Phone: Start: 10-04-2023 End: 10-04-2023 Patient encounter procedure [facility] Work Phone: Start: 09-25-2023 Non-patient / Non-visit [facility] Work Phone: Start: 08-30-2023 End: 08-30-2023 ambulatory [facility] Work Phone: Start: 08-30-2023 End: 08-30-2023 Patient encounter procedure [facility] Work Phone: Start: 05-11-2023 End: 05-11-2023 ambulatory [facility] Start: 04-12-2023 End: 04-12-2023 ambulatory [facility] Start: 03-14-2023 End: 03-14-2023 ambulatory SHONA BRAIN [facility] Start: 07-19-2022 End: 07-19-[address] YONY TEAGUE . Facility:[facility] Start: 06-28-2022 End: 06-29-[address] YONY TEAGUE . Facility:[facility] Start: 03-28-2022 End: 03-29-[address] LAURIE ROB Facility:[facility] Start: 03-15-2022 End: 03-16-[address] YONY TAEGUE . Facility:[facility] Start: 02-28-2022 End: 03-01-[address] YONY TEAGUE . Facility:[facility] Start: 08-19-2021 End: 08-20-[address] YONY TEAGUE . Facility: Start: 12-27-2017 End: 12-28-2017 Patient encounter DEFAULT PHYSICIAN Facility:[facility] Start: 12-03-2017 End: 12-04-2017 Patient encounter DEFAULT PHYSICIAN Facility:[facility] Plan of Treatment Date Care Activity Detail Author Immunofixation for Urine [facility] Renal function 1999 panel - Serum or Plasma [facility] enter Renal function 1999 panel - Serum or Plasma [facility] enter Renal function 1999 panel - Serum or Plasma [facility] enter [facility] Payers Date Payer Category Payer Medicare [id number] 2017 Unknown [id number] 1961 Medicaid [id number] 1961 Medicare [id number] 1960 Unknown [id number] 2.16.84 [id number] 1960 Unknown [id number] 2.16.84 [id number] 1960 Unknown [id number] 2.16.84 [id number] 1960 Unknown [id number] 2.16.84 [id number] 1960 Unknown [id number] 2.16.84 [id number] 1960 Unknown [id number] 2.16.84 [id number] Medicare Medicare [id number] Unknown Social History Date Type Detail Facility Start: 08-30-2023 Tobacco smoking stat [facility] Smoker (finding) [facility] Start: 1960 Sex Assigned At Female [facility] Start: 09-11-2024 Tobacco smoking stat [facility] Smokes tobacco daily (finding) [facility] Sex Female (finding) [facility] Clinical Notes 03-14-2023 to 12-03-2023 [...] After (more content not included)... [facility] 05-11-2023 Note Pt has stopped takin g simvastatin- asked pt to resume taking simvastatin [facility] 05-11-2023 Note Currently is not nicole ing multiple antihypertensive meds- Dr Teague's office states that asked pt to hold lisinopril and has repeat labs next Sunday. I asked pt to resume taking hydralazine, imdur, aldactone. Referral to nephrology sent [facility] 05-11-2023 Note In light of noted AK I on CKD will refer pt to nephrology for further evaluation and management of renal disease and assistance with HTN managemend [facility] 05-11-2023 Note [facility] CARDIOLOGY PROGR ESS NOTE [...] function (more content not included)... [facility] 05-11-2023 Note Patient here for 1 m [...] systems reviewed and are negative. [facility] 04-12-2023 Note Decrease lisinopril to 10 mg daily, repeat BMP in 1 week in light she is taking Chlorthalidone, lisinopril and aldactone. Hopefully renal function improves and HTN is controlled. [facility] 04-12-2023 Note [facility]TP CARDIOLOGY PROGR ESS NOTE [...] normal. (more content not included)... [facility] 04-12-2023 Note Patient here for 1 m [...] systems reviewed and are negative. [facility] 04-12-2023 Note Hypertension is much improved- but renal function increased therefore decrease lisinopril to 10 mg daily and add hydralazine 25 mg tid. Repeat labs- BMP in 1 week to check renal function RTC 1 month [facility] 04-12-2023 Note Coronary artery dise ase is stable Continue GDMT continue risk factor modifications- heart healthy diet, regular exercise as tolerated and continue all medications. [facility] 03-20-2023 Note At last visit HTN wa [...] De La Paz NP Division of Cardiology, [facility]- [phone] Pager- [phone] Email- [email or web address] 03-20-2023 Note At last [...] De La Paz NP Division of Cardiology, [facility]- [phone] Pager- [phone] Email- [email or web address] 03-14-2023 Note Will send script for meclizine for S/S of vertigo- pt to f/u with PCP for further evaluation and management [facility] 03-14-2023 Note Will add imdur to me d regime, d/w pt to call office for side effects- headache, hypotension or any concerns and she voiced understanding [facility] 03-14-2023 Note Patient here for 6 m [...] systems reviewed and are negative. [facility] 03-14-2023 Note UTP CARDIOLOGY PROGR ESS NOTE HPI: Deepthi Pantoja is a 62 y.o. female here for 6 mo follow up chest pain, CAD, and hypertension. Says her intermittent chest pain remains unchanged. Denies SOB, LE edema, and palpitations. Had a dizzy spell that lasted 2 days around [place]. Says she feels anxious and jumpy and [...] she gets dizzy. Admits dizzy spell at [place], states that the room starts spinning and [...] F/ (more content not included)... [facility] 03-14-2023 Note Coronary artery dise ase is stable Continue GDMT- ASA, coreg, zetia, simvastatin, and lisinopril continue risk factor modifications- heart healthy diet, regular exercise as tolerated and continue all medications. [facility] 03-14-2023 Note Hypertension is unco ntrolled and pt states she is taking medications daily- reports she took all meds today Increase lisinopril to 20 mg daily and add imdur 30 mg for HTN and chest pain [facility] 03-14-2023 Note [facility] No concerning sympto ms today Monitor with echocardiogram and F/u assessment of any concerning symptoms [facility] Evaluation note Diagnosis Onset Date CAD (coronary artery disease) acute CKD (chronic kidney disease) stage 3, GFR 30-59 ml/min acute Hyperlipidemia acute [id number] acute Secondary hyperparathyroidism acute [facility] Work Phone: Evaluation note* Diagnosis Onset Date Resolution Status CAD (coronary artery disease) acute CKD (chronic kidney disease) stage 3, GFR 30-59 ml/min acute Hyperlipidemia acute [id number] acute Secondary hyperparathyroidism acute CAD (coronary artery disease) acute CKD (chronic kidney disease) stage 3, GFR 30-59 ml/min acute Hyperlipidemia acute [id number] acute Hyperuricemia acute Hypomagnesemia acute MGUS (monoclonal gammopathy of unknown significance) acute Secondary hyperparathyroidism acute [facility] Work Phone: Evaluation note* Diagnosis Onset Date [...] Secondary hyperparathyroidism acute September 11, 2024 10:24am [facility] Work Phone: Reason for referral (narrative)No reason for referral information availableLake[facility] Work Phone: Summary Purpose Family History No [...] disease) stage 3, GFR 30-59 ml/min Hyperlipidemia [id number] Secondary hyperparathyroidism Chief Complaint RENAL CKD / RENAL FA ILURE 6 week follow up Reason for Visit CAD (coronary artery disease) CKD (chronic kidney disease) stage 3, GFR 30-59 ml/min Hyperlipidemia [id number] Secondary hyperparathyroidism CAD (coronary artery disease) CKD (chronic kidney disease) stage 3, GFR 30-59 ml/min Hyperlipidemia [id number] Hyperuricemia Hypomagnesemia MGUS (monoclonal gammopathy of unknown [...] and content) DATE CREATED AUTHOR 01/01/2018 [facility] DATE CREATED AUTHOR AUTHOR'S ORGANIZ ATION 07/22/2022 [facility] DATE CREATED AUTHOR AUTHOR'S ORGANIZ ATION 12/04/2023 [facility] Care Teams (unrecognized sec tion and content) [...] BE BASED ON THE PRIMARY CLINICAL RECORDS. [employer] provides no warranty or guarantee of the accuracy or completeness of information in this document.
[2024-09-27 11:59] LABS: Hematocrit 38.7 % (36.0-48.0); Hemoglobin 13.3 g/dL (12.0-16.0); Immature Granulocytes Abs Auto 0.02 10^3/uL (0.00-0.03); Immature Granulocytes Pct Auto 0.2 % (0.0-0.5); Lymphocytes Absolute Auto 2.1 10^3/uL (1.2-3.8); Mean Corpuscular HGB Conc 34.4 g/dL (29.9-35.2); Mean Corpuscular Hemoglobin 30.9 pg (26.7-34.0); Mean Corpuscular Volume 89.8 fL (81.0-99.0); Platelet Count 208 10^3/uL (150-450); Red Blood Count 4.31 10^6/uL (4.20-5.40); White Blood Count 10.7 10^3/uL (4.0-11.0)
[2024-09-27 12:28] LABS: Iron 79.0 ug/dL (50.0-170.0); Percent Iron Saturation 32.9 %; Total Iron Binding Capacity 240.0 ug/dL (250.0-450.0)
== END 2024-09-27 11:38 | disposition home or self-care (01) ==
PROVIDERS: PCP Family Medicine; Visit Provider Internal Medicine Hematology & Oncology
DX: E79.0 Hyperuricemia without signs of inflammatory arthritis and tophaceous disease (principal); D47.2 Monoclonal gammopathy; D50.9 Iron deficiency anemia, unspecified; K90.9 Intestinal malabsorption, unspecified
CPT/HCPCS: 36415; 83540; 83550; 85025

== ENCOUNTER 2024-11-18 10:50 | Outpatient (RCR) | payer MEDICARE, SELFPAY ==
[2024-11-11 10:52] LABS: Hematocrit 38.6 % (36.0-48.0); Hemoglobin 13.3 g/dL (12.0-16.0); Immature Granulocytes Abs Auto 0.02 10^3/uL (0.00-0.03); Immature Granulocytes Pct Auto 0.2 % (0.0-0.5); Lymphocytes Absolute Auto 1.8 10^3/uL (1.2-3.8); Mean Corpuscular HGB Conc 34.5 g/dL (29.9-35.2); Mean Corpuscular Hemoglobin 31.0 pg (26.7-34.0); Mean Corpuscular Volume 90.0 fL (81.0-99.0); Platelet Count 163 10^3/uL (150-450); Red Blood Count 4.29 10^6/uL (4.20-5.40); White Blood Count 8.4 10^3/uL (4.0-11.0)
[2024-11-11 11:23] LABS: Anion Gap 14.8; Blood Urea Nitrogen 16.0 mg/dL (7.0-18.0); Calcium 8.9 mg/dL (8.5-10.1); Carbon Dioxide 25.1 mmol/L (21.0-32.0); Chloride 104 mmol/L (98-107); Estimated GFR (African America 41 (>=60 mL/min/1.73m^2); Estimated GFR (Non-African Ame 34 (>=60 mL/min/1.73m^2); Glucose 119 mg/dL (74-106); Potassium 3.9 mmol/L (3.5-5.1); Sodium 140 mmol/L (136-145)
[2024-11-11 11:40] LABS: Iron 91.0 ug/dL (50.0-170.0); Percent Iron Saturation 34.3 %; Total Iron Binding Capacity 265.0 ug/dL (250.0-450.0)
[2024-11-11 11:54] LABS: Ferritin 511.0 ng/mL (8.0-252.0)
[2024-11-12 09:08] LABS: Vitamin B12 347 pg/mL (232-1245)
[2024-11-13 11:09] LABS: Albumin 3.4 g/dL (2.9-4.4); Alpha-1-Globulin 0.3 g/dL (0.0-0.4); Alpha-2-Globulin 0.9 g/dL (0.4-1.0); Free Kappa Lt Chains,S 49.1 mg/L (3.3-19.4); Free Lambda Lt Chains,S 48.7 mg/L (5.7-26.3); Gamma Globulin 1.2 g/dL (0.4-1.8); Immunoglobulin A, Qn, Serum 338 mg/dL (87-352); Kappa/Lambda Ratio,S 1.01 (0.26-1.65)
== END 2024-12-09 23:59 | disposition home or self-care (01) ==
LOC: HEMC 10:50
PROVIDERS: PCP Family Medicine; Visit Provider Internal Medicine Hematology & Oncology
DX: E79.0 Hyperuricemia without signs of inflammatory arthritis and tophaceous disease (principal); D47.2 Monoclonal gammopathy; D50.9 Iron deficiency anemia, unspecified; K90.9 Intestinal malabsorption, unspecified; I25.10 Atherosclerotic heart disease of native coronary artery without angina pectoris; N18.30 Chronic kidney disease, stage 3 unspecified; E11.22 Type 2 diabetes mellitus with diabetic chronic kidney disease; I12.9 Hypertensive chronic kidney disease with stage 1 through stage 4 chronic kidney disease, or unspecified chronic kidney disease; Z95.5 Presence of coronary angioplasty implant and graft; Z90.710 Acquired absence of both cervix and uterus; Z90.49 Acquired absence of other specified parts of digestive tract; M54.50 Low back pain, unspecified; E11.40 Type 2 diabetes mellitus with diabetic neuropathy, unspecified; G35 Multiple sclerosis
CPT/HCPCS: 36415; 80048; 82607; 82728; 82784; 83521; 83540; 83550; 84155; 84165; 85025; 85652; 86140; 86334; G0463

== ENCOUNTER 2024-11-19 09:30 | Outpatient (OUT) | payer MEDICARE, SELFPAY ==
--- OUTSIDE RECORDS SUMMARY | 2024-08-19 07:30 | XMS_ITS ---
Author Organization The [facility] in [place] Address [address] [place] [address] Care Team Providers Care Tool Setter Apprentice Name Role Phone Zaire Teague Primary Care Provider Romi Armijo Unavailable [phone] REASON FOR VISIT MD Encounters Encounter Location Date Provider Diagnosis [facility] On[facility] [address] [place] [address] 08/19/2024 Romi Armijo Plan Of Treatment Next Appt Details Provider Name:Romi Armijo , 02/17/2025 10:30:00 AM, [address] [place], [address], Progress Notes * Deepthi PANTOJADOB:1960 (64 yo F)Acc No.[id number]:08/19/2024 UNLOCKED PROGRESS NOTE Progress Notes Patient: Mich IBANEZ Deepthi Provider: Rivka Armijo M.D. :1960 A ge:64 Y S ex:Female Date:08/19/2024 Address:[address] [place] [address], [place] Pcp:Zaire Teague Subjective: * Chief Complaints: * 1 . MD. * Medical History: Objective: * Vitals: Assessment: Plan: * Treatment: * * Electronic signature of Dinh Armijo MD, [id number] on 11/19/2024 at 09:34 AM EDT Sign off status: Pending Visit Status: Tam SPARROW (Voice) * Provider: Rivka Armijo M.D. Date: 0 08/19/2024 Generated for Roosevelt hatch/Hao/Jaime on: 0 11/19/2024 09:34 AM EDT
--- OUTSIDE RECORDS SUMMARY | 2024-08-27 10:00 | XMS_ITS ---
Author Organization The [facility] in [place] Address [address] [place] [address] Care Team Providers Care Supervisor Paste Plant Name Role Phone Zaire Teague Primary Care Provider Romi Armijo Unavailable [phone] REASON FOR VISIT CL1 Encounters Encounter Location Date Provider Diagnosis [facility] On[facility] [address] [place] [address] 08/27/2024 Romi Armijo Plan Of Treatment Next Appt Details Provider Name:Romi Armijo , 02/17/2025 10:30:00 AM, [address] [place], [address], Progress Notes * Deepthi PANTOJADOB:1960 (64 yo F)Acc No.[id number]:08/27/2024 UNLOCKED PROGRESS NOTE Progress Note Patient: Mich IBANEZDeepthi Provider: Rivka Armijo M.D. :1960 A ge:64 Y S ex:Female Date:08/27/2024 Address:[address] [place] [address], [place] Pcp:Zaire Teague Subjective: * Chief Complaints: * 1 . CL1. * Medical History: Objective: * Vitals: Assessment: Plan: * Treatment: * * Electronic signature of Dinh Armijo MD, [id number] on 11/19/2024 at 09:34 AM EDT Sign off status: Pending Visit Status: P EN (Pending) * Provider: Rivka Armijo M.D. Date: 0 08/27/2024 Generated for Roosevelt hatch/Hao/Jaime on: 0 11/19/2024 09:34 AM EDT
--- OUTSIDE RECORDS SUMMARY | 2024-09-03 10:00 | XMS_ITS ---
Author Organization The [facility] in [place] Address [address] [place] [address] Care Team Providers Care Supervisor Home Economics Name Role Phone Zaire Teague Primary Care Provider Romi Armijo Unavailable [phone] REASON FOR VISIT CL1 Encounters Encounter Location Date Provider Diagnosis [facility] On[facility] [address] [place] [address] 09/03/2024 Romi Armijo Plan Of Treatment Next Appt Details Provider Name:Romi Armijo , 02/17/2025 10:30:00 AM, [address] [place], [address], Progress Notes * Deepthi PANTOJADOB:1960 (64 yo F)Acc No.[id number]:09/03/2024 UNLOCKED PROGRESS NOTE Progress Note Patient: Mich IBANEZDeepthi Provider: Rivka Armijo M.D. :1960 A ge:64 Y S ex:Female Date:09/03/2024 Address:[address] [place] [address], [place] Pcp:Zaire Teague Subjective: * Chief Complaints: * 1 . CL1. * Medical History: Objective: * Vitals: Assessment: Plan: * Treatment: * * Electronic signature of Dinh Armijo MD, [id number] on 11/19/2024 at 09:35 AM EDT Sign off status: Pending Visit Status: P EN (Pending) * Provider: Rivka Armijo M.D. Date: 0 09/03/2024 Generated for Roosevelt hatch/Hao/Jaime on: 0 11/19/2024 09:35 AM EDT
--- OUTSIDE RECORDS SUMMARY | 2024-11-13 10:20 | XMS_ITS | Encounter Summary ---
Author Organization [facility] Address [address] [place] [address] Care Team Providers Care Journal Clerk Name Role Phone Jonatan Teague MD Primary Care Provider [phone] Reason for Visit * Reason Comments Coronary Artery Disease Denies chest maricarmen n but says she gets a poke every once in awhile. Hyperlipidemia Lipid panel drawn in June 2024. Hasn't been taking simvastatin and she doesn't know why. Hypertension Renal US in June 29, and routine labs drawn [address] Teague started her on lisinopril a few months ago. Valve Disorder Had echo in Dec 2023 after last apt. Feels palpitations sometimes, doesn't last long . Shortness of Breath With exerion Encounter Details Date Type Department Care Team (Late st Contact Info) Description 11/13/2024 10:20 AM EDT Office Visit [facility] [address] [place] [address] Sophia Domingo, ASSEMBLER [employer] [address] [place] [address] Uncontrolled hypertension (Primary Dx); Coronary arteriosclerosis in sioux artery; Mixed hyperlipidemia; Essential hypertension; Stage 3b chronic kidney disease (CMS/HCC) Social History Tobacco Use Types Packs/Day Years Used Date Smoking Tobacco: Every Day Cigarettes Smokeless Tobacco: Never Alcohol Use Standard Drinks/Week Comments Not Currently [...] Information Value Date Recorded Sex Assigned at Female 11/12/2024 11:20 AM EDT Legal Sex Female 9:14 PM EDT Gender Identity Female 11/12/2024 11:20 AM EDT Sexual Orientation Heterosexual or Straight 05/2024 11:20 AM EDT documented as of this encounter Last Filed Vital Signs Vital Sign Reading Time Taken Comments Blood Pressure 170/82 11/13/2024 11:03 AM EDT Pulse 55 11/13/2024 10:35 AM EDT Temperature - - Respiratory Rate - - Oxygen Saturation 98% 11/13/2024 10:35 AM EDT Inhaled Oxygen Concentration - - Weight 67.1 kg (148 lb) 11/13/2024 10:35 AM EDT Height 157.5 cm (5' 2 ) 11/13/2024 10:35 AM EDT Body Mass Index 27.07 11/13/2024 10:35 AM EDT documented in this encounter Progress Notes * Sophia Domingo, ERIK - 11/13/2024 10:20 AM EDT Images from the original note were not included. Cardiovascular Medicine [facility] SUBJECTIVE Chief Complaint Patient presents with Coronary Artery Disease Denies chest pain but says she gets a poke every once in awhile. Hyperlipidemia Lipid panel drawn in June 2024. Hasn't been taking simvastatin and she doesn't know why. Hypertension Renal US in June 2024, and routine labs drawn [address] Teague started her on lisinopril a few months ago. Valve Disorder Had echo in Dec 2023 after last apt. Feels palpitations sometimes, doesn't last long . Shortness of Breath With exerion Deepthi Pantoja is a 64 y.o. female here for follow-up. PMHx: coronary artery disease, prior stent placement, hypertension, dyslipidemia and hypothyroidism HPI 11/13/2024 She denies any changes since last seen. Her BP is high today, she is unsure if she took her meds this AM. She also doesn't know why she is not taking simvastatin, zetia, hydralazine, chlorthalidone, aldactone, imdur. Her MUKHERJEE is stable, unchanged. She notes she gets an occasional poke on the left side of her chest - can occur if she is doing house work, or eating too fast. Lasts seconds then resolves, no accompanied sx. Denies orthopnea, PND, LE edema, palpitations, synocpe. Problem List[1] Medical History[2] Family History[3] Social History[4] Allergies[5] OBJECTIVE Visit Vitals BP 170/82 (BP Location: Left arm, Patient Position: Sitting) Pulse 55 Ht 1.575 m (5' 2 ) Wt 67.1 kg (148 lb) SpO2 98% BMI 27.07 kg/m?? Smoking Status Every Day BSA 1.71 m?? Medications: Current Medications[6] Physical Exam Vitals reviewed. Constitutional: Appearance: Normal appearance. She is normal weight. HENT: Head: Normocephalic and atraumatic. Right Ear: External ear normal. Left Ear: External ear normal. Eyes: Extraocular Movements: Extraocular movements intact. Conjunctiva/sclera: Conjunctivae normal. Pupils: Pupils are equal, round, and reactive to light. Neck: Vascular: No carotid bruit. Cardiovascular: Rate and Rhythm: Normal rate and regular rhythm. Pulses: Normal pulses. Heart sounds: Normal heart sounds. Pulmonary: Effort: Pulmonary effort is normal. Breath sounds: Normal breath sounds. Abdominal: General: Bowel sounds are normal. Palpations: Abdomen is soft. Musculoskeletal: Cervical back: Neck supple. Right lower leg: No edema. Left lower leg: No edema. Skin: General: Skin is warm and dry. Neurological: General: No focal deficit present. Mental Status: She is alert and oriented to person, place, and time. Psychiatric: Mood and Affect: Mood normal. Behavior: Behavior normal. Thought Content: Thought content normal. Judgment: Judgment normal. Labs: No results found for: EXTCMP , BMPR1A , CBCDIF , BNP , LASAP , RED No visits with results within 6 Month(s) from this visit. Latest known visit with results is: No results found for any previous visit. 11/11/2024 Hgb 13.3, plt 163, WBC 8.4 ESR 36 Cr 1.53, BUN 16, K 3.9, Na 140, eGFR 34 VitB12 347 06/27/2024 Hgb 11.8, plt 191, WBC 12.7 Cr 2.41, BUN 32, K 4.5, Na 139, eGFR 20, AST 10, ALT 12 Chol 122, trig 81, LDL 48, HDL 57 TSH 0.008, Free T3 1.64 Testing/Procedures: ECHO 12/13/2023 Lexiscan stress test 03/2022: Abnormal Lexiscan stress test based on inferolateral leads changes as well as hypertension. No reproducible symptoms. Normal nuclear medicine myocardial perfusion scan. Ejection fraction 65%. No transient ischemic dilation. Stress test 05/28/2019 Lexiscan stress test: Indication: Chest pain, history of systolic congestive heart failure Per the reports, there are downsloping in leads II, III, and aVF. After 5 minutes, orientation wastrending towards baseline . No mention of the amplitude of the changes is made. The patient had nochest pain or other symptoms. Normal nuclear medicine myocardial perfusion scan. Echocardiogram 02/2019: Normal left and right ventricular systolic function. Mild mitral regurgitation. Mild tricuspid regurgitation with mildly increased pulmonary pressures. Service Date: 08/27/2013 Cardiovascular Laboratory Report FINAL IMPRESSION: 50% left anterior descending coronary artery stenosis. PROCEDURE: Coronary arteriography. METHOD: Written informed consent was obtained. A normal left Luis test was confirmed. Modified Seldinger technique was used to place a slender sheath into the left radial artery. A 6 JR 4 was introduced for right coronary arteriography. A 6 JL 4 and JL 3.5, were used unsuccessfully to cannulate the left main. An AL 1 was introduced into this vessel and angiography performed. The sheath was withdrawn. Adequate hemostasis was achieved. There were no complications. PRESSURE DATA: Aorta 137/60. ANGIOGRAPHY/CORONARY ARTERIOGRAPHY: Left main coronary artery: This segment had no significant abnormalities. Left anterior descending coronary artery: This vessel had 50% stenosis just distal to the first septal lead pressman, and another mid vessel 50% stenosis. These stenoses were similar to those detected on prior catheterization. Circumflex coronary artery: There was plaque disease but no significant stenosis. Right coronary artery: This vessel was dominant. A previously placed stent was widely patent with no restenosis. COMMENT: Deepthi Demarco is a 53-year-old female who presented with recurrent chest pain. A previous evaluation had detected moderate left anterior descending coronary artery stenosis with an FFR of 0.89. Progression was suspected, and angiography recommended. Given findings on the current procedure, she will be managed medically. Electronically Signed by: Ruslan Ballard M.D. 08/29/2013 10:44 A Cardiac cath 2011 ASSESSMENT/PLAN: Diagnoses and all orders for this visit: Uncontrolled hypertension - Blood pressure monitor Coronary arteriosclerosis in sioux artery - ezetimibe (Zetia) 10 mg tablet; Take 1 tablet (10 mg) by mouth at bedtime. - simvastatin (Zocor) 20 mg tablet; Take 1 tablet (20 mg) by mouth at bedtime. - Blood pressure monitor Mixed hyperlipidemia - ezetimibe (Zetia) 10 mg tablet; Take 1 tablet (10 mg) by mouth at bedtime. - simvastatin (Zocor) 20 mg tablet; Take 1 tablet (20 mg) by mouth at bedtime. Essential hypertension - hydrALAZINE (Apresoline) 25 mg tablet; Take 1 tablet (25 mg) by mouth three times daily. Stage 3b chronic kidney disease (CMS/HCC) - Blood pressure monitor #CAD -Hx PCI with NEO 2011 to the RCA -Cath 2013: stable dz with LAD 50% stenosed -Continue ASA, BB. Resuming simvastatin and zetia #HTN -BP elevated today but she is unsure if she took her AM medications -Will have her resume hydralazine. Continue coreg, lisinopril. -Advised she also check her BP at home, 2 hours after medications. #HLD -Controlled lipids per 06/2024 labs. She thinks she was taking simvastatin/zetia during this time. Will resume these today as she thinks she ran out of refills and didn't call to get additional refills. #Valvular heart disease -Hx MR/TR -TTE 12/2023 showed no significant valve changes -Continue to monitor Follow up in about 3 months (around 02/12/2025). Sophia Domingo CNP [facility] Cardiovascular Medicine [1] Patient Active Problem List Diagnosis Atypical chest pain Acquired hypothyroidism Abnormal liver function tests Coronary arteriosclerosis in sioux artery Multiple sclerosis (CMS/HCC) Mitral valve regurgitation Essential hypertension Hyperlipidemia Vertigo Palpitations Type 1 diabetes mellitus (CMS/HCC) Impingement syndrome of shoulder region Acute kidney injury superimposed on CKD CKD (chronic kidney disease) stage 3, GFR 30-59 ml/min (CMS/HCC) Hyperuricemia Hypomagnesemia MGUS (monoclonal gammopathy of unknown significance) Secondary hyperparathyroidism [2] Past Medical History: Diagnosis Date Chronic kidney disease Coronary artery disease Diabetes mellitus (CMS/HCC) Heart valve disease Hyperlipidemia Hypertension Multiple sclerosis (CMS/HCC) [3] Family History Problem Relation Name Age of Onset Heart failure Mother Diabetes Mother Dementia Mother Other (lung cancer) Father [4] Social History Tobacco Use Smoking status: Every Day Current packs/day: 0.50 Types: Cigarettes Smokeless tobacco: Never Substance Use Topics Alcohol use: Not Currently [5] Allergies Allergen Reactions Penicillins Hives Darvocet-N 100 [Propoxyphene N-Acetaminophen] Other [6] Current Outpatient Medications: aspirin 81 mg EC tablet, Take 1 tablet every day by oral route., Disp: , Rfl: carvedilol (Coreg) 25 mg tablet, Take one tablet BID this replaces metoprolol, Disp: 180 tablet, Rfl: 3 citalopram (CeleXA) 20 mg tablet, Take 40 mg by mouth in the morning., Disp: , Rfl: ergocalciferol (Vitamin D-2) 1.25 MG (48950 Units) capsule, Take 1 capsule by mouth 1 (one) time per week., Disp: , Rfl: levothyroxine (Synthroid, Levoxyl) 200 mcg tablet, Take 175 mcg by mouth before breakfast., Disp: ,Rfl: lisinopril 20 mg tablet, Take 20 mg by mouth in the morning., Disp: , Rfl: pantoprazole (ProtoNix) 40 mg EC tablet, Take 40 mg by mouth in the morning., Disp: , Rfl: Trelegy Ellipta 200-62.5-25 mcg blister with device, , Disp: , Rfl: chlorthalidone (Hygroton) 25 mg tablet, Take 1 tablet (25 mg) by mouth in the morning. (Patient nottaking: Reported on 11/13/2024), Disp: 90 tablet, Rfl: 3 diclofenac (Voltaren) 75 mg EC tablet, Take 75 mg by mouth in the morning and at bedtime. Do not crush, chew, or split. (Patient not taking: Reported on 11/13/2024), Disp: , Rfl: ezetimibe (Zetia) 10 mg tablet, Take 1 tablet (10 mg) by mouth at bedtime., Disp: 90 tablet, Rfl: 3 hydrALAZINE (Apresoline) 25 mg tablet, Take 1 tablet (25 mg) by mouth three times daily., Disp: 270tablet, Rfl: 3 isosorbide mononitrate ER (Imdur) 30 mg 24 hr tablet, Take 1 tablet (30 mg) by mouth in the morning. Do not crush or chew. (Patient not taking: Reported on 11/13/2024), Disp: 90 tablet, Rfl: 3 simvastatin (Zocor) 20 mg tablet, Take 1 tablet (20 mg) by mouth at bedtime., Disp: 90 tablet, Rfl:3 spironolactone (Aldactone) 25 mg tablet, Take 1 tablet (25 mg) by mouth in the morning. (Patient not taking: Reported on 11/13/2024), Disp: 90 tablet, Rfl: 3 documented in this encounter Plan of Treatment Upcoming Encounters Date Type Department Care Team (Late st Contact Info) Description 02/17/2025 10:20 AM EST Office Visit [facility] [address] [place] [address] Sophia Domingo CNP [address] [place] [address] documented as of this encounter Visit Diagnoses Diagnosis Uncontrolled hypertension- Primary Coronary arteriosclerosis in sioux artery Mixed hyperlipidemia Essential hypertension Unspecified essential hypertension Stage 3b chronic kidney disease (CMS/HCC) documented in this encounter Care Teams Journal Clerk Relationship Specialty Start Date End Date Jonatan Teague MD [address] [facility] [address] [address] PCP - General 03/20/22 documented as of this encounter
--- OUTSIDE RECORDS SUMMARY | 2024-11-18 07:30 | XMS_ITS ---
Author Organization [facility] in [place] Address [address] [place] [address] Care Team Providers Care Acute Care Certified Nursing Assistant Name Role Phone Zaire Teague Primary Care Provider [phone] Romi Armijo Unavailable [phone] REASON FOR VISIT MD Encounters Encounter Location Date Provider Diagnosis [facility] [address] [place] [phone] 11/18/2024 Romi Armijo Plan Of Treatment Next Appt Details Provider Name:Romi Armijo , 02/17/2025 10:30:00 AM, [address] [place], [address], Progress Notes * Deepthi PANTOJADOB:1960 (64 yo F)Acc No.[id number]:11/18/2024 UNLOCKED PROGRESS NOTE Progress Notes Patient: Mich IBANEZ Deepthi Provider: Rivka Armijo M.D. :1960 A ge:64 Y S ex:Female Date:11/18/2024 Address:[address] [place] [address], [place], [place] Pcp:Zaire Teague Subjective: * Chief Complaints: * 1 . MD. * Medical History: Objective: * Vitals: Assessment: Plan: * Treatment: * * Electronic signature of Dinh Armijo MD, [id number] on 11/19/2024 at 09:35 AM EDT Sign off status: Pending Visit Status: Maurice ANTON (Voice) * Provider: Rivka Armijo M.D. Date: 0 11/18/2024 Generated for Roosevelt hatch/Hao/Jaime on: 0 11/19/2024 09:35 AM EDT
--- OUTSIDE RECORDS SUMMARY | 2024-11-18 07:42 | XMS_ITS ---
Author Organization The [facility] in [place] Address [address] [place] [address] Care Team Providers Care Health Advocate Name Role Phone Zaire Teague Primary Care Provider REASON FOR VISIT TSH Encounters Encounter Location Date Provider Diagnosis [facility] [address] [place] [address] 11/18/2024 Zaire Teague Hypothyroidism E03.9 Assessments Encounter Date Diagnosis (ICD Code) Assessment Notes Treatment Notes Treatment Clinical Notes Section Notes 11/18/2024 Hypothyroidism (ICD-10 - E03.9) Plan Of Treatment Pending Test Test Name Order Date THYROID PANEL (T4/TSH/FREE T3) Next Appt Details Provider Name:Romi Armijo , 02/17/2025 10:30:00 AM, [address] [place], [address], Progress Notes * Deepthi PANTOJADOB:1960 (64 yo F)Acc No.[id number]:11/18/2024 Patient: Mich IBANEZDeepthi :1960 A ge:64 Y S ex:Female Address:[address] [place] [address], [place] [address] Subjective: * Chief Complaints: * T SH * Medical History: * Surgical History: * Hospitalization/Major Diagno stic Procedure: * Medications: Objective: * Vitals: * Physical Examination: Assessment: * Assessment: 1. H ypothyroidism - E03.9 (Primary) Plan: * Treatment: * Procedure Codes: * true * Date: Generated for Roosevelt hatch/Hao/Jaime on: 0 11/19/2024 09:34 AM EDT
--- OUTSIDE RECORDS SUMMARY | 2024-11-19 09:34 | XMS_ITS | Clinical Summary ---
Author Organization [facility] Address [address] [place] [address] Care Team Providers Care Planned Giving Officer Name Role Phone Jonatan Teague MD Primary Care Provider [phone] Allergies Active Allergy Reactions Criticality Noted Date [...] mg by mouth in the morning. 02/19/20 22 Active carvedilol (Coreg) 25 mg tabletIndications:E ssential hypertension Take one tablet BID this replaces metoprolol 180 tablet 3 03/20/19 23 Active chlorthalidone (Hygroton) 25 mg tabletIndications:E ssential hypertension Take 1 tablet (25 mg) by mouth in the morning. 90 tablet 3 11/01/19 23 Active Additional Information Patient not taking.Reported on 11/13/2024 spironolactone (Aldactone) 25 mg tabletIndications:E ssential hypertension Take 1 tablet (25 mg) by mouth in the morning. 90 tablet 3 11/01/19 23 Active Additional Information Patient not taking.Reported on 11/13/2024 diclofenac (Voltaren) 75 mg EC tablet Take 75 mg by mouth in the morning and at bedtime. Do not crush, chew, or split. Active isosorbide mononitrate ER (Imdur) 30 mg 24 hr tabletIndications:C oronary arteriosclerosis in [place] artery,Atypical chest pain Take 1 tablet (30 mg) by mouth in the morning. Do not crush or chew. 90 tablet 3 03/14/19 24 Active Additional Information Patient not taking.Reported on 11/13/2024 ergocalciferol (Vitamin D-2) 1.25 MG (67420 Units) capsule Take 1 capsule by mouth 1 (one) time per week. Active lisinopril 20 mg tablet Take 20 mg by mouth in the morning. 11/13/19 25 Active Trelegy Ellipta 200-62.5-25 mcg blister with device 11/13/19 25 Active ezetimibe (Zetia) 10 mg tabletIndications:C oronary arteriosclerosis in [place] artery,Mixed hyperlipidemia Take 1 tablet (10 mg) by mouth at bedtime. 90 tablet 3 11/14/19 25 Active simvastatin (Zocor) 20 mg tabletIndications:C oronary arteriosclerosis in [place] artery,Mixed hyperlipidemia Take 1 tablet (20 mg) by mouth at bedtime. 90 tablet 3 11/14/19 25 Active hydrALAZINE (Apresoline) 25 mg tabletIndications:E ssential hypertension Take 1 tablet (25 mg) by mouth three times daily. 270 tablet 3 11/14/19 25 026 Active ezetimibe (Zetia) 10 mg tabletIndications:C oronary arteriosclerosis in [place] artery,Mixed hyperlipidemia Take 1 tablet (10 mg) by mouth at bedtime. 90 tablet 3 11/01/19 23 025 Discontin ued(Reord er) hydrALAZINE (Apresoline) 25 mg tabletIndications:E ssential hypertension Take 1 tablet (25 mg) by mouth in the morning, at noon, and at bedtime. 90 tablet 11 03/20/19 24 025 Discontin ued(Reord er) simvastatin (Zocor) 20 mg tabletIndications:C oronary arteriosclerosis in [place] artery,Mixed hyperlipidemia Take 1 tablet (20 mg) by mouth at bedtime. 90 tablet 3 05/11/19 24 025 Discontin ued(Reord er) Active Problems Problem Noted Date Diagnosed Date [...] to call and update pt. Delfina Lawson MANAGER BUSINESS [employer]ESS Division of Cardiology, [facility]- [phone] Pager- [phone] Email- [email or web address] Assessment & Plan (03/14/2023 4:24 PM EST): [...] 02/05/2012 Multiple sclerosis 01/01/2012 Coronary arteriosclerosis in [place] artery 10/22 Assessment & Plan (04/12/2023 12:07 [...] her life Type 1 diabetes mellitus 10/18/2011 Encounters Date Type Department Care Team Description 11/13/2024 10:20 AM EDT Office Visit [facility] [address] [place] [address] Sophia Domingo CNP Uncontrolled hypertension (Primary Dx); Coronary arteriosclerosis in [place] artery; Mixed hyperlipidemia; Essential hypertension; Stage 3b chronic kidney disease (CMS/HCC) from Last 3 Months Immunizations Immunization Administration Dates Next Due Influenza, [...] Heterosexual or Straight 05/2024 11:20 AM EDT Last Filed Vital Signs Vital Sign Reading [...] Mass Index 27.07 11/13/2024 10:35 AM EDT Plan of Treatment Upcoming Encounters Date Type Department Care Team (Late st Contact Info) Description 02/17/2025 10:20 AM EST Office Visit [facility] [address] [place] [address] Sophia Domingo, [employer] MA[employer]GER [address] [place] [address] Health Maintenance Due Date Last Done Comments [...] Risk Screening 2023 COVID-19 Vaccine ( season) 2024 03/07/2021, 03/07/2021, 06/19/2020, Additional history exists Influenza [...] patient's age to complete this topic Insurance [employer] MEDICARE Care Teams Planned Giving Officer Relationship Specialty Start Date End Date Jonatan Teague MD [address] [facility] [place] [address] PCP - General 03/20/22
--- OUTSIDE RECORDS SUMMARY | 2024-11-19 09:34 | XMS_ITS | Patient Health Record ---
Author Organization [facility] in [place] Address [address] [place] [address] Care Team Providers Care Industrial Hygiene Manager Name Role Phone Zaire Goode Primary Care Provider [phone] Romi Armijo Unavailable [phone] Allergies Allergen (clinical drug ingredient) Drug/Non Drug Allergy documented on EMR Reaction Allergy Type Onset Date Status rosuvastatin Crestor muscle aches Drug Allergy A ctive Penicillin hives Drug Allergy Active Results Component Value Reference Range Notes PTH, Intact Reviewed date:02/05/2024 02:37:20 PM Interpretation: Performing Lab: Notes/Report: [facility] , PTH, Intact 59 15-65 pg/mL Performed at: [facility] [address] [id number] [place]: Lex Munguia PhD, Phone: [phone] Performing Lab: see note - [facility] LB CBC AUTO DIFF Reviewed date:06/28/2024 11:53:33 AM Interpretation: Performing Lab: Notes/Report: [facility] , White Blood Count 8.4 4.0-11.0 10 [...] Performing Lab: see note ML - [facility] LB CBC AUTO DIFF Reviewed date:09/11/2024 08:51:08 PM Interpretation: Performing Lab: Notes/Report: [facility] , White Blood Count 9.3 4.0-11.0 10 [...] 3/uL Performing Lab: see note ML - [facility] LB MAGNESIUM Reviewed date:09/11/2024 08:51:08 PM Interpretation: Performing Lab: Notes/Report: [facility] , Magnesium 1.8 1.8-2.4 mg/dL Performing Lab: see note ML - [facility] RENAL FUNCTION PANEL Reviewed date:09/11/2024 08:51:08 PM Interpretation: Performing Lab: Notes/Report: [facility] , Sodium 141 136-145 mmol/L Potassium 3.9 3.5-5.1 mmol/L Chloride 105 98-107 mmol/L Carbon Dioxide 24.9 21.0-32.0 mmol/L Anion Gap 15.0 Glucose 98 74-106 mg/dL Blood Urea Nitrogen 22.0 7.0-18.0 mg/dL Creatinine 1.55 0.55-1.02 mg/dL Estimated GFR ( Sun 41 >=60 mL/min/1.73m 2 Estimated GFR (Non- Raquel 33 >=60 mL/min/1.73m 2 BUN Creatinine Ratio 14.2 Calcium 9.1 8.5-10.1 mg/dL Phosphorus 4.1 2.6-4.7 mg/dL Albumin Level 3.1 3.4-5.0 g/dL Performing Lab: see note ML - [facility] LB URIC ACID SERUM Reviewed date:09/11/2024 08:51:08 PM Interpretation: Performing Lab: Notes/Report: [facility] , Uric Acid 7.2 2.6-6.0 mg/dL Performing Lab: see note ML - [facility] CBC AUTO DIFF (Not yet revie wed by provider) Interpretation: Performing Lab: Notes/Report: [facility] , White Blood Count 8.4 4.0-11.0 10 3/uL Red Blood Count 4.29 4.20-5.40 10 6/uL Hemoglobin 13.3 12.0-16.0 g/dL Hematocrit 38.6 36.0-48.0 % Mean Corpuscular Volume 90.0 81.0-99.0 fL Mean Corpuscular Hemoglobin 31.0 26.7-34.0 pg Mean Corpuscular HGB Conc 34.5 29.9-35.2 g/dL Red Cell Distribution Width 13.1 11.0-15.0 % Platelet Count 163 150-450 10 3/uL Mean Platelet Volume 11.6 9.5-13.5 fL Neutrophils Percent Auto 69.3 43.0-75.0 % Lymphocytes Percent Auto 21.4 20.5-60.0 % Monocytes Percent Auto 6.5 1.7-12.0 % Eosinophils Percent Auto 1.9 0.9-7.0 % Basophils Percent Auto 0.7 0.2-2.0 % Immature Granulocytes Pct Auto 0.2 0.0-0.5 % Neutrophils Absolute Auto 5.8 1.4-6.5 10 3/uL Lymphocytes Absolute Auto 1.8 1.2-3.8 10 3/uL Monocytes Absolute Auto 0.6 0.3-0.8 10 3/uL Eosinophils Absolute Auto 0.2 0.0-0.7 10 3/uL Basophils Absolute Auto 0.1 0.0-0.1 10 3/uL Immature Granulocytes Abs Auto 0.02 0.00-0.03 10 3/uL Performing Lab: see note ML - [facility] LB CRP (Not yet reviewed by pro vider) Interpretation: Performing Lab: Notes/Report: [facility] , C Reactive Protein 1.44 <=0.50 mg/dL Performing Lab: see note ML - [facility] LB FERRITIN (Not yet reviewed b y provider) Interpretation: Performing Lab: Notes/Report: [facility] , Ferritin 511.0 8.0-252.0 ng/mL Performing Lab: see note - [facility] LB IRON AND TIBC (Not yet revie wed by provider) Interpretation: Performing Lab: Notes/Report: [facility] , Iron 91.0 50.0-170.0 ug/dL Total Iron Binding Capacity 265.0 250.0-450.0 ug/dL Percent Iron Saturation 34.3 Performing Lab: see note ML - [facility] LB PROF CHEM 8 (BAS METB) (Not yet reviewed by provider) Interpretation: Performing Lab: Notes/Report: [facility] , Sodium 140 136-145 mmol/L Potassium 3.9 3.5-5.1 mmol/L Chloride 104 98-107 mmol/L Carbon Dioxide 25.1 21.0-32.0 mmol/L Anion Gap 14.8 Glucose 119 74-106 mg/dL Blood Urea Nitrogen 16.0 7.0-18.0 mg/dL Creatinine 1.53 0.55-1.02 mg/dL Estimated GFR ( Sun 41 >=60 mL/min/1.73m 2 Estimated GFR (Non- Raquel 34 >=60 mL/min/1.73m 2 BUN Creatinine Ratio 10.5 Calcium 8.9 8.5-10.1 mg/dL Performing Lab: see note ML - [facility] LB Erythrocyte Sedimentation Ra te (Not yet reviewed by provider) Interpretation: Performing Lab: Notes/Report: [facility] , Erythrocyte Sedimentation Rate 36 <=30 mm/hr Performing Lab: see note ML - [facility] LB SINGH, PE and FLC, Serum (Not yet reviewed by provider) Interpretation: Performing Lab: Notes/Report: [facility] , Immunoglobulin G, Qn, Serum 3384 325-1828 mg/dL Immunoglobulin A, Qn, Serum 338 87-352 mg/dL Immunoglobulin M, Qn, Serum 150 26-217 mg/dL Protein, Total 6.9 6.0-8.5 g/dL Albumin 3.4 2.9-4.4 g/dL Odejq-9-Qnbxtzhe 0.3 0.0-0.4 g/dL Mgkua-2-Fepdxgbj 0.9 0.4-1.0 g/dL Beta Globulin 1.1 0.7-1.3 g/dL Gamma Globulin 1.2 0.4-1.8 g/dL M-Chuck Comment: Not Observed g/dL Monoclonal IgG lambda #1 = 0.3 g/dl Monoclonal IgG lambda #2 = 0.2 g/dl Globulin, Total 3.5 2.2-3.9 g/dL A/G Ratio 1.0 0.7-1.7 Immunofixation Result, Serum Comment . Immunofixation shows a biclonal IgG protein with lambda specificity. Please note: Comment . Protein electrophoresis scan will follow via computer, mail, or coiled tubing operator delivery. Free Tull Lt Chains,S 49.1 3.3-19.4 mg/L Free Lambda Lt Chains,S 48.7 5.7-26.3 mg/L Tull/Lambda Ratio,S 1.01 0.26-1.65 Performed at: [address] [id number] [place]: Lex Munguia PhD, Phone: [phone] Performing Lab: see note [facility] LB Vitamin B12 (Not yet reviewe d by provider) Interpretation: Performing Lab: Notes/Report: [facility] Vitamin B12 662 477-1464 pg/mL Performed at: [address] [id number] [place]: Lex Munguia PhD, Phone: [phone] Performing Lab: see note [facility] LB IRON AND TIBC (Not yet revie wed by provider) Interpretation: Performing Lab: Notes/Report: [facility] , Iron 79.0 50.0-170.0 ug/dL Total Iron Binding Capacity 240.0 250.0-450.0 ug/dL Percent Iron Saturation 32.9 Performing Lab: see note [facility] LB CBC AUTO DIFF (Not yet revie wed by provider) Interpretation: Performing Lab: Notes/Report: [facility] , White Blood Count 10.7 4.0-11.0 10 3/uL Red Blood Count 4.31 4.20-5.40 10 6/uL Hemoglobin 13.3 12.0-16.0 g/dL Hematocrit 38.7 36.0-48.0 % Mean Corpuscular Volume 89.8 81.0-99.0 fL Mean Corpuscular Hemoglobin 30.9 26.7-34.0 pg Mean Corpuscular HGB Conc 34.4 29.9-35.2 g/dL Red Cell Distribution Width 13.9 11.0-15.0 % Platelet Count 208 150-450 10 3/uL Mean Platelet Volume 11.3 9.5-13.5 fL Neutrophils Percent Auto 72.3 43.0-75.0 % Lymphocytes Percent Auto 19.2 20.5-60.0 % Monocytes Percent Auto 6.2 1.7-12.0 % Eosinophils Percent Auto 1.4 0.9-7.0 % Basophils Percent Auto 0.7 0.2-2.0 % Immature Granulocytes Pct Auto 0.2 0.0-0.5 % Neutrophils Absolute Auto 7.8 1.4-6.5 10 3/uL Lymphocytes Absolute Auto 2.1 1.2-3.8 10 3/uL Monocytes Absolute Auto 0.7 0.3-0.8 10 3/uL Eosinophils Absolute Auto 0.2 0.0-0.7 10 3/uL Basophils Absolute Auto 0.1 0.0-0.1 10 3/uL Immature Granulocytes Abs Auto 0.02 0.00-0.03 10 3/uL Performing Lab: see note - [facility] LB PTH, Intact Reviewed date:09/14/2024 01:41:33 PM Interpretation: Performing Lab: Notes/Report: [facility] , PTH, Intact 66 15-65 pg/mL Performed at: [facility] [address] [id number] [place]: Lex Munguia PhD, Phone: [phone] Performing Lab: see note - [facility] LB CBC no Diff (Hemogram) Reviewed date:09/11/2024 08:51:08 PM Interpretation: Performing Lab: Notes/Report: [facility] , White Blood Count 7.8 4.0-11.0 10 3/uL Red Blood Count 4.20 4.20-5.40 10 6/uL Hemoglobin 12.8 12.0-16.0 g/dL Hematocrit 36.9 36.0-48.0 % Mean Corpuscular Volume 87.9 81.0-99.0 fL Mean Corpuscular Hemoglobin 30.5 26.7-34.0 pg Mean Corpuscular HGB Conc 34.7 29.9-35.2 g/dL Red Cell Distribution Width 14.5 11.0-15.0 % Platelet Count 192 150-450 10 3/uL Mean Platelet Volume 11.8 9.5-13.5 fL Performing Lab: see note [facility] LB VITAMIN D 25 [place] Reviewed date:09/11/2024 08:51:08 PM Interpretation: Performing Lab: Notes/Report: [facility] , Vitamin D 45.6 <20 ng/mL Vit D deficient 20-<30 ng/mL Vit D insufficient 30-100 ng/mL Vit D sufficient >100 ng/mL Potential Toxicity Performing Lab: see note - [facility] LB URINE T PROTEIN CREAT RATIO Reviewed date:09/11/2024 08:51:08 PM Interpretation: Performing Lab: Notes/Report: [facility] , Total Protein Urine Random 59.4 <=11.9 mg/dL Creatinine Urine Random 105.42 20.00-30 0.00 mg/dL Protein Creatinine Ratio Urine 0.56 Performing Lab: see note [facility] LB UA RANDOM W or MICROSCOPIC Reviewed date:09/11/2024 08:51:08 PM Interpretation: Performing Lab: Notes/Report: [facility] , Color Urine LT. YELLOW YELLOW Clarity Urine CLEAR CLEAR Specific [place] Urine 1.020 1.005-1.025 pH Urine 6.0 5.0-9.0 Protein Urine [...] TRACE NONE SEEN Squamous Epithelial Cell Urine RARE NONE/RARE #/LPF Crystals Seen? None Seen None Seen #/HPF Cast Seen? SEEN NONE SEEN #/LPF Hyaline Casts Urine RARE Performing Lab: see note - [facility] LB SINGH, PE and FLC, Serum Reviewed date:09/11/2024 08:51:08 PM Interpretation: Performing Lab: Notes/Report: [facility] , Immunoglobulin G, Qn, Serum 7064 044-2442 mg/dL Immunoglobulin A, Qn, Serum 318 87-352 mg/dL Immunoglobulin M, Qn, Serum 151 26-217 mg/dL Protein, Total 6.9 6.0-8.5 g/dL Albumin 3.3 2.9-4.4 g/dL Qzbdc-0-Hcckljcc 0.3 0.0-0.4 g/dL Icvoh-7-Jsbjohbp 1.0 0.4-1.0 g/dL Beta Globulin 1.2 0.7-1.3 g/dL Gamma Globulin 1.1 0.4-1.8 g/dL M-Chuck 0.3 Not Observed g/dL Globulin, Total 3.6 2.2-3.9 g/dL A/G Ratio 1.0 0.7-1.7 Immunofixation Result, Serum Comment . Immunofixation shows IgG monoclonal protein with lambda light chain specificity. Please note: Comment . Protein electrophoresis scan will follow via computer, mail, or coiled tubing operator delivery. Free Tull Lt Chains,S 53.4 3.3-19.4 mg/L Free Lambda Lt Chains,S 56.4 5.7-26.3 mg/L Tull/Lambda Ratio,S 0.95 0.26-1.65 Performed at: - [facility] [id number] [place]: Lex Munguia PhD, Phone: [phone] Performing Lab: see note - [facility] LB Erythrocyte Sedimentation Ra te Reviewed date:09/11/2024 08:51:08 PM Interpretation: Performing Lab: Notes/Report: [facility] , Erythrocyte Sedimentation Rate 71 <=30 mm/hr Performing Lab: see note - [facility] LB PROF 14(COMP METB) Reviewed date:09/11/2024 08:51:08 PM Interpretation: Performing Lab: Notes/Report: [facility] , Sodium 139 136-145 mmol/L Potassium [...] Globulin Ratio 0.7 Performing Lab: see note - [facility] IRON AND TIBC Reviewed date:09/11/2024 08:51:08 PM Interpretation: Performing Lab: Notes/Report: [facility] , Iron 70.0 50.0-170.0 ug/dL Total Iron Binding Capacity 289.0 250.0-450.0 ug/dL Percent Iron Saturation 24.2 Performing Lab: see note - [facility] IMMUNOGLOBULIN E, TOTAL Reviewed date:09/11/2024 08:51:08 PM Interpretation: Performing Lab: Notes/Report: [facility] , Immunoglobulin E, Total 87 6-495 IU/mL Performed at: - [facility] [address] [id number] [place]: Sam Tolbert MD, Phone: [phone] Performing Lab: see note - [facility] LB FERRITIN Reviewed date:09/11/2024 08:51:08 PM Interpretation: Performing Lab: Notes/Report: [facility] , Ferritin 99.0 8.0-252.0 ng/mL Performing Lab: see note - [facility] LB CRP Reviewed date:09/11/2024 08:51:08 PM Interpretation: Performing Lab: Notes/Report: [facility] , C Reactive Protein 1.89 <=0.50 mg/dL Performing Lab: see note - [facility] US renal BI Reviewed date:07/04/2024 12:23:49 PM Interpretation: Performing Lab: Notes/Report: Source Facility: [facility]-[address] [place] [address] [place] [address] Ultrasound Report Signed Patient: DEEPTHI PANTOJA MR#: [id number] : 1960 Acct:[id number] Age/Sex: 64 / F ADM Date: 07/04/24 Loc: US Attending Dr: Yony Goode M.D. Ordering Physician: Yony Goode M.D. Date of Service: 07/04/24 Procedure(s): US renal BI Accession Number(s): [id number] cc: Yony Goode M.D. [address] [id number] Patient Name: DEEPTHI PANTOJA MRN: [id number] date: 1960 Sex: F Assigned Patient Location: US Current Patient Location: US Accession/Order Number: [id number] Exam Date: 07/04/2024 10:27 Report Date: 07/04/2024 10:28 At the request of: YONY GOODE MD Procedure: US renal BI BILATERAL RENAL [...] IMPRESSION: No acute findings. Impression dictated by: Stephenie Steve Jr.ONaomi 07/04/2024 10:28 AM Dictation Location: [place] [address] Electronically authenticated by: [id number] Y Date: 07/04/2024 10:28 Dictated By: Olu Lam M.D. Signed By: 07/04/24 1030 DD/ 1028 TD/TT: Gullet Slitter: [place] [address] Ultrasound Report Signed Patient: LORETTA PANTOJA MR#: [id number] : 1960 Acct:[id number] Age/Sex: 64 / F ADM Date: 07/04/24 Loc: US Attending Dr: Sydni Goode M.D. Ordering Physician: Yony Goode M.D. Date of Service: 07/04/24 Procedure(s): US miracle al BI Accession Number(s): [id number] cc: Yony Goode M.D. [address] [address] Patient Name: DEEPTHI PANTOJA MRN: [id number] date: 1960 Sex: F Assigned Patient Location: US Current Patient Location: US Accession/Order Numb er: [id number] Exam Date: 07/04/2024 10:27 Report Date: 07/04/2024 10:28 At the request of: YONY GOODE MD Procedure: US renal BI BILATERAL RENAL [...] Jr., D.O. 07/04/2024 10:28 AM Dictation Location: [place] [address] Electronically authenticated by: [id number] Y Date: 07/04/2024 10:28 Dictated By: Olu Lam M.D. Signed By: 07/04/24 1030 DD/ 1028 TD/TT: Gullet Slitter: TSH Reviewed date:06/28/2024 11:53:33 AM Interpretation: Performing Lab: Notes/Report: [facility] , Thyroid Stimulating Hormone 0.008 0.358-3.740 uIU/mL Performing Lab: see note ML - [facility] LB T4 Reviewed date:06/28/2024 11:53:33 AM Interpretation: Performing Lab: Notes/Report: [facility] , T4 Thyroxine 7.90 4.80-13.90 ug/dL Performing Lab: see note - [facility] LB PROF 14(COMP METB) Reviewed date:06/28/2024 11:53:33 AM Interpretation: Performing Lab: Notes/Report: [facility] , Sodium 139 136-145 mmol/L Potassium [...] 0.7 Performing Lab: see note ML - [facility] LIPID PROFILE Reviewed date:06/28/2024 11:53:33 AM Interpretation: Performing Lab: Notes/Report: [facility] , Triglycerides 81 <=150 mg/dL Cholesterol [...] RISK Performing Lab: see note ML - [facility] LB IRON Reviewed date:06/28/2024 11:53:33 AM Interpretation: Performing Lab: Notes/Report: [facility] , Iron 19.0 50.0-170.0 ug/dL Performing Lab: see note - [facility] GLYCOHEMOGLOBIN A1C Reviewed date:06/28/2024 11:53:33 AM Interpretation: Performing Lab: Notes/Report: [facility] , Glycohemoglobin A1C 6.0 4.5-6.2 % ADA RECOMMENDED LIMIT 4.0 - 6.0 ADA THERAPEUTIC TARGET < 7.0 ACTION SUGGESTED > 7.0 Estimated Average Glucose 126 Performing Lab: see note ML - [facility] LB FREE T3 Reviewed date:06/28/2024 11:53:33 AM Interpretation: Performing Lab: Notes/Report: [facility] , Free T3 1.64 2.18-3.98 pg/mL Performing Lab: see note ML - [facility] LB CBC AUTO DIFF Reviewed date:06/28/2024 11:53:33 AM Interpretation: Performing Lab: Notes/Report: [facility] , White Blood Count 12.7 4.0-11.0 [...] 3/uL Performing Lab: see note ML - [facility] LB SINGH, PE and FLC, Serum Reviewed date:06/28/2024 11:53:33 AM Interpretation: Performing Lab: Notes/Report: [facility] , Immunoglobulin G, Qn, Serum 9951 522-0155 mg/dL Immunoglobulin A, Qn, Serum 346 87-352 mg/dL Immunoglobulin M, Qn, Serum 142 26-217 mg/dL Protein, Total 7.0 6.0-8.5 g/dL Albumin 3.5 2.9-4.4 g/dL Exeph-5-Luqokwdy 0.3 0.0-0.4 g/dL Dgvrb-5-Lvbwxkwe 0.9 0.4-1.0 g/dL Beta Globulin 1.1 0.7-1.3 [...] scan will follow via computer, mail, or coiled tubing operator delivery. Free Tull Lt Chains,S 61.6 3.3-19.4 mg/L Free Lambda Lt Chains,S 52.5 5.7-26.3 mg/L Tull/Lambda Ratio,S 1.17 0.26-1.65 Performed at: [address] [id number] [place]: Lex Munguia PhD, Phone: [phone] Performing Lab: see note [facility] LB PROF 14(COMP METB) Reviewed date:06/28/2024 11:53:34 AM Interpretation: Performing Lab: Notes/Report: [facility] , Sodium 143 136-145 mmol/L Potassium [...] 0.7 Performing Lab: see note ML - [facility] LB CBC no Diff (Hemogram) Reviewed date:02/04/2024 02:16:42 PM Interpretation: Performing Lab: Notes/Report: [facility] , White Blood Count 7.4 4.0-11.0 [...] 11.8 9.5-13.5 fL Performing Lab: see note [facility] VITAMIN D 25 [place] Reviewed date:02/04/2024 02:16:42 PM Interpretation: Performing Lab: Notes/Report: [facility] , Vitamin D 41.1 <20 ng/mL Vit D deficient 20-<30 ng/mL Vit D insufficient 30-100 ng/mL Vit D sufficient >100 ng/mL Potential Toxicity Performing Lab: see note - [facility] LB URINE T PROTEIN CREAT RATIO Reviewed date:02/04/2024 02:16:42 PM Interpretation: Performing Lab: Notes/Report: [facility] , Total Protein Urine Random 36.9 <=11.9 mg/dL Creatinine Urine Random 137.32 20.00-30 0.00 mg/dL Protein Creatinine Ratio Urine 0.27 Performing Lab: see note ML - [facility] LB URIC ACID SERUM Reviewed date:02/04/2024 02:16:42 PM Interpretation: Performing Lab: Notes/Report: [facility] , Uric Acid 6.9 2.6-6.0 mg/dL Performing Lab: see note ML - [facility] UA RANDOM W or MICROSCOPIC Reviewed date:02/04/2024 02:16:42 PM Interpretation: Performing Lab: Notes/Report: [facility] , Color Urine LT. YELLOW YELLOW Clarity Urine CLEAR CLEAR Specific [place] Urine 1.025 1.005-1.025 pH Urine 6.0 5.0-9.0 [...] #/LPF Performing Lab: see note ML - [facility] LB RENAL FUNCTION PANEL Reviewed date:02/04/2024 02:16:42 PM Interpretation: Performing Lab: Notes/Report: [facility] , Sodium 140 136-145 mmol/L Potassium [...] g/dL Performing Lab: see note ML - [facility] LB MAGNESIUM Reviewed date:02/04/2024 02:16:42 PM Interpretation: Performing Lab: Notes/Report: [facility] , Magnesium 1.7 1.8-2.4 mg/dL Performing Lab: see note ML - [facility] LB CA echo doppler complete Reviewed date:12/13/2023 08:35:32 PM Interpretation: Performing Lab: Notes/Report: Source Facility: [place] [address] Cardiology Report Signed Patient: DEEPTHI PANTOJA MR#: [id number] : 1960 Acct:[id number] Age/Sex: 63 / F ADM Date: 12/13/23 Loc: CARD Attending Dr: Prema Rob M.D. Ordering Physician: Prema Rob M.D. Date of Service: 12/13/23 Procedure(s): CA echo doppler complete Accession Number(s): [id number] cc: Prema Rob M.D.; Yony Goode M.D. Patient Name: DEEPHTI PANTOJA MR#: [id number] : 1960 Exam Date: 12/13/2023 Ordering Doctor: [...] 23.51 ml, 23.51 ml Dictated by: Luis Storey M.D. on 12/13/2023 at 17:55 Approved by: Luis Storey M.D. on 12/13/2023 at 18:01 Dictated By: LUIS STOREY Signed By: 12/13/231802 DD/ 01 TD/TT: Gullet Slitter: [place] [address] Cardiology Report Signed Patient: LORTETA PANTOJA MR#: [id number] : 1960 Acct:[id number] Age/Sex: 63 / F ADM Date: 12/13/23 Loc: CARD Attending Dr: Prema Rob M.D. Ordering Physician: Prema Rob M.D. Date of Service: 12/13/23 Procedure(s): CA ech o doppler complete Accession Number(s): [id number] cc: Prema Rob; Yony Goode M.D. Patient Name: DEEPTHI PANTOJA MR#: [id number] : 1960 Exam Date: 12/13/2023 Ordering Doctor: [...] 23.51 ml, 23.51 ml Dictated by: Luis Storey M.D. on 12/13/2023 at 17:55 Approved by: Luis Storey M.D. on 12/13/2023 at 18:01 Dictated By: LUIS STOREY Signed By: 12/13/231802 DD/ 01 TD/TT: [place] Slitter: Reason For Referral No Information Medications Medication [...] 1 tablet Orally Once a day Active Citalopram Hydrobromide 40 mg TAKE 1 TABLET BY MOUTH ONCE DAILY for 30 Active Vitamin D (Ergocalciferol) 1.25 MG (71038 UT) 1 capsule Orally once weekly Active Pantoprazole Sodium 40 mg TAKE 1 TABLET BY MOUTH ONCE DAILY for 90 Active Lisinopril 20 MG 1 tablet Orally Once a day for 30 days 08/14/2024 Active Coreg 25 MG 1 tablet with food Orally Twice a day for 30 days Active Trelegy Ellipta 200 mcg 200 mcg/62.5 mcg/ 25 mcg 1 puff Inhalation Once a day for 30 days 1 inhaler/ box 08/14/2024 Active predniSONE 20 MG 2 tablets Orally Once a day for 5 days 06/20/2024 Active Immunizations Vaccine Route Administration Date Status Iban cox Flu, (24465) -historic- Whole Unknown 02/11/2015 Administered Flu, Flucelvax (6578-4422) (24546) 6 mos and older, single-dose syringe IM Intramuscular 02/15/2023 Administered Flu, Flucelvax (42499) 2 yrs+, single-dose syringe (4396-8695) Unknown 01/13/2020 Administered Flu, Flucelvax (04429) 2 yrs+, single-dose syringe (2424-5710) Unknown 12/29/2020 Administered SARS-COV-2 (COVID 19 Moderna [...] Problem Status W/U Status Risk Notes Problem 62921528 Atherosclerotic heart disease of [place] coronary artery without angina pectoris (I25.10) Active confirmed Problem Chronic ischemic heart disease (363446025) Chronic ischemic heart disease, unspecified (I25.9) Active confirmed Problem Acute frontal sinusitis (12717059) Acute recurrent frontal sinusitis (J01.11) Active confirmed Problem Lumbosacral spondylosis without myelopathy (67973294) Other spondylosis, lumbar region (M47.896) Active confirmed Problem Fibromyalgia (791977520) Fibromyalgia (M79.7) Active confirmed Problem 41007534 Acute kidney failure, unspecified (N17.9) Active confirmed Problem Acute cystitis (78473800) Acute cystitis with hematuria (N30.01) Active confirmed Problem Chest pain (18622799) Chest pain (R07.9) Active confirmed Problem Hyperlipidemia (48057477) Hyperlipidemia (E78.5) Active confirmed Problem Chronic obstructive pulmonary disease (43156456) Chronic obstructive pulmonary disease (J44.9) Active confirmed Problem Hypertension (90559975) Hypertension (I10) Active confirmed Problem Osteoarthritis (425238432) Osteoarthritis (M19.90) Active confirmed Problem Angina pectoris (546362546) Angina pectoris (I20.9) Active confirmed Problem Cigarette smoker (22366888) Cigarette smoker (F17.210) Active confirmed Problem Asthma (108767296) Asthma (J45.909) Active confirmed Problem Mitral valve disorder (12533993) Moderate mitral regurgitation (I34.0) Active confirmed Problem Hypothyroidism (16362596) Hypothyroidism (E03.9) Active confirmed Problem Neck pain (99894915) Neck pain (M54.2) Active confirmed Problem Osteopenia (819398228) Osteopenia (M85.80) Active confirmed Problem Insomnia (321298301) Insomnia (G47.00) Active confirmed Problem Eczema (54059982) Eczema (L30.9) Active confirm ed Problem 46843540 Chronic fatigue (R53.82) Active confirmed Problem Lumbar radiculopathy (372753778) Lumbar radiculopathy (M54.16) Active confirmed Problem Acute sinusitis (04283061) Acute sinusitis (J01.90) Active confirmed Problem Displacement of lumbar intervertebral disc without myelopathy (53990587) Lumbar herniated disc (M51.26) Active confirmed Problem Well adult (909305187) Well adult (Z00.00) Active confirmed Problem 040402547 Acquired hypothyroidism (E03.9) Active confirmed Problem Irritable bowel syndrome (32792060) Irritable bowel syndrome (K58.9) Active confirmed Problem Degenerative disc disease (95785526) DDD (degenerative disc disease), lumbar (M51.36) Active confirmed Problem Multiple sclerosis (04317696) Multiple sclerosis (G35) Active confirmed Problem Impingement syndrome of shoulder region (582029897) Shoulder impingement (M75.40) Active confirmed Problem Acute systolic heart failure (328184398) Acute systolic heart failure (I50.21) Active confirmed Problem Overweight (874347768) Over weight (E66.3) Active confirmed Problem Seasonal allergic rhinitis (781967046) Allergic rhinitis, seasonal (J30.2) Active confirmed Problem Thoracic outlet syndrome (752013271) Thoracic outlet syndrome (G54.0) Active confirmed Problem Left lower quadrant pain (974921019) Abdominal pain, LLQ (R10.32) Active confirmed Problem Diverticular disease of colon (122636415) Colon, diverticulosis (K57.30) Active confirmed Problem Fibrocystic breast changes (19275455) Fibrocystic breast disease (N60.19) Active confirmed Problem Trigger finger of right hand (8999337248946244 1) Trigger finger of right hand (M65.30) Active confirmed Problem Recurrent major depression (44327265) Depression, major, recurrent, in remission (F33.40) Active confirmed Problem Diabetic peripheral neuropathy associated with type 2 diabetes mellitus (5108004007103) Type 2 diabetes, controlled, 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) Active confirmed Problem Raynaud's disease (225298161) Raynaud's disease (I73.00) Active confirmed Problem Peripheral vertigo (54733544) Vertigo, peripheral (H81.399) Active confirmed Problem Bruising (217862765) Bruising (T14.8XXA) Active confirmed Problem Cough (finding) (58968594) Other cough (R05.8) Active confirmed Vital Signs Temperature 97.8 degrees Fahrenheit 06/20/2024 Oximetry 98 % 06/20/2024 Blood pressure diastolic 100 mm Hg 08/14/2024 Height 62 in 08/14/2024 Blood pressure systolic 234 mm Hg 08/14/2024 Weight 146.4 lbs 08/14/2024 BMI 26.77 kg/m2 08/14/2024 Encounters Encounter Location Date Provider Diagnosis [facility] [address] [place] [address] 06/28/2024 Zaire Goode Acute kidney failure , unspecified N17.9 [facility] [address] [place] [address] 07/04/2024 Zaire Herediay [facility] [address] [place] [facility] [place] [address] 07/07/2024 Zaire Hoy [facility] [address] [place] [facility] [place] [address] 08/15/2024 Zaire Hoy Acute bronchitis, unspecified organism J20.9 [facility] [address] [place] [facility] [place] [address] 11/18/2024 Zaire Hoy Hypothyroidism E03.9 [facility] [address] [place] [address] 12/11/2023 Zaire Herediay Encounter for Medica re annual wellness exam Z00.00 [facility] [address] [place] [facility] [place] [address] 02/13/2024 Zaire Hoy Acute non-recurrent sinusitis, unspecified location J01.90 and Nasal congestion R09.81 [facility] [address] [place] [facility] [place] [address] 08/14/2024 Zaire Hoy Acute bronchitis, unspecified organism J20.9 [facility] [address] [place] [place] [address] 07/07/2024 Zaire Hoy Hypertension I10 [facility] [address] [place] [place] [address] 06/20/2024 Zaire Hoy Chronic obstructive pulmonary disease J44.9 and Acute bronchitis, unspecified organism J20.9 [facility] [address] [place] [address] 11/18/2024 Romi Aleksander [facility] [address] [place] [address] 03/25/2024 Romi Aleksander [facility] [address] [place] [address] 08/27/2024 Romi Aleksander [facility] [address] [place] [address] 09/03/2024 Romi Aleksander [facility] [address] [place] [address] 08/19/2024 Romi Armijo Assessments Encounter Date Diagnosis (ICD Code) Assessment Notes Treatment Notes Treatment Clinical Notes Section Notes 06/28/2024 Acute kidney failure, unspecified (ICD-10 - N17.9) 08/15/2024 Acute bronchitis, unspecified organism (ICD-10 - J20.9) 11/18/2024 Hypothyroidism (ICD-10 - E03.9) 07/07/2024 Hypertension (ICD-10 - I10) 08/14/2024 Acute bronchitis, unspecified organism (ICD-10 - J20.9) Rest and drink more liquids, especially water. You may use a humidifier or vaporizer to help keep the drainage moist. Rchc-vza-jugxezf Nasal Saline may help the stuffy and runny nose. Use Ibuprofen and or Tylenol as needed for fever, chills, body aches or pain. Children 5 years old should not be given jzah-ges-ddswlni cough and cold medications such as guaifenesin and dextromethorphan. If you're over age 5, you may try vchz-dzg-rpxjfgi cold medications such as guaifenesin and dextromethorphan, [...] vaporizer to help keep the drainage moist. Rbsz-ooe-pufcqjz Nasal Saline may help the stuffy and runny nose. Use Ibuprofen and or Tylenol as needed for fever, chills, body aches or pain. Children 5 years old should not be given kznr-cxg-urgqjja cough and cold medications such as guaifenesin and dextromethorphan. If you're over age 5, you may try rjsh-btf-yigzume cold medications such as guaifenesin and dextromethorphan, [...] vaporizer to help keep the drainage moist. Itvu-afc-bhpdqvm Nasal Saline may help the stuffy and runny nose. Use Ibuprofen and or Tylenol as needed for fever, chills, body aches or pain. Children 5 years old should not be given rxef-bff-mimrkkd cough and cold medications such as guaifenesin and dextromethorphan. If you're over age 5, you may try eeqg-wam-yudxrsz cold medications such as guaifenesin and dextromethorphan, [...] IRON, TOTAL 06/20/2024 LIPID PANEL (CHOL/TRIG/HDL/LDL) 06/21/19 US Renal 05/01/2023 COMPREHENSIVE METABOLIC PROFILE WITH GFR 05/01/2023 CT Chest Low Dose for Screening* 023 STOOL OCCULT BLOOD 06/20/2024 CBC AUTO DIFF 09/27/2024 CBC AUTO DIFF 11/11/2024 CRP 11/11/2024 FERRITIN 11/11/2024 GLYCOHEMOGLOBIN A1C 06/27/2022 IRON AND TIBC 11/11/2024 IRON AND TIBC 09/27/2024 PROF CHEM 8 (BAS METB) 11/11/2024 PROF CHEM 8 (BAS METB) 05/08/2023 PROF CHEM 8 (BAS METB) 05/19/2023 PROF CHEM 8 (BAS METB) 04/23/2023 VITAMIN D 25 OH 06/27/2022 US KIDNEYS 06/28/2024 US KIDNEYS BLADDER 05/19/2023 THYROID PANEL (T4/TSH/FREE T3) 3 THYROID PANEL (T4/TSH/FREE T3) 5 THYROID PANEL (T4/TSH/FREE T3) 5 Erythrocyte Sedimentation Rate 5 SINGH, PE and FLC, Serum 11/11/2024 Vitamin B12 11/11/2024 CMP (COMP MET ZHAO) w/eGFR CKD-EPI 2024 CBC WITH DIFF 06/20/2024 Next Appt Details Provider Name:Romi Zuñigawla , 02/17/2025 10:30:00 AM, [address] [place], [address], Insurance Providers Payer Name Payer Address Payer Phone Subscriber Number Group Number Insured Name Patient Relationship to Insured Coverage Start Date Coverage End Date [employer] MEDICARE [address] [address] [place], [place] [id number] [phone] [id number] Deepthi Pantoja Self - patient is the [...] 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
--- OUTSIDE RECORDS SUMMARY | 2024-11-19 09:34 | XMS_ITS | Clinical Summary ---
Author Organization [facility] Address [id number] [address] [place] [address] Care Team Providers Care Labor Relations Consultant Name Role Phone Jonatan Teague MD Primary [...] Vaccine 11/10/2024 Medical Devices Implanted Type Area [employer]er Device Identifier Shelf Expiration Date Model / Serial / Lot Lens Iol Ultrasert 20.5d - [id number] - [id number] Implanted:Qty: 1 on 06/06/2018 by Gaby Munoz MD at [facility] Lens Right: Eye [employer] 09/08/2020 [id number] 20.5 / [id number] / N/A Lens Iol Ultrasert 20.5d - [id number] 20.5 - [id number] Implanted:Qty: 1 on 06/20/2018 by Gaby Munoz MD at [facility] Lens Left: Eye [employer] 01/09/2021 [id number] 20.5 / [id number] 20.5 / [id number] Insurance MEDICARE Care Teams Labor Relations Consultant Relationship Specialty Start Date End Date Jonatan Teague MD PCP - General Family Medicine 06/04/18
--- OUTSIDE RECORDS SUMMARY | 2024-11-19 09:36 | XMS_ITS | Clinical Summary ---
Author Organization [facility] Address [address] [place] [address] Care Team Providers Care Selling Specialist Name Role Phone Unavailable Primary Care Provider [...]
--- OUTSIDE RECORDS SUMMARY | 2024-11-19 09:37 | XMS_ITS | CCD ---
Author Organization [facility] CliniSywa Care Team Providers Care Hedis Coordinator Name Role Phone PHYSICIAN, DEFAULT Unavailable Unavailable PHYSICIAN, DEFAULT Unavailable Unavailable YONY TEAGUE Unavailable Unavailable PHYSICIAN, DEFAULT Unavailable Unavailable PHYSICIAN, DEFAULT Unavailable Unavailable YONY TEAGUE Unavailable Unavailable LUCIAY ., DR BHAKTA Admitting Unavailable HOY ., [...] Unavailable HOY ., DR BHAKTA Consulting Unavailable [place], DR MICHAEL Turcios Consulting Unavailable HOY ., DR BHAKTA Admitting Unavailable HOY ., DR BHAKTA Attending Unavailable HOY ., DR BHAKTA Primary Care Unavailable HOY ., DR BHAKTA Consulting Unavailable ZIEBER, DR ALEX Palma Consulting Unavailable Yony Teague MD Primary Care Provider [phone] Kerwin Andrade MD Attending Provider IVAN MATA Attending Unavailable ELTAHAWY, LAURIE Attending Unavailable Allergies Allergy Classification Reported Allergen(s) Allergy Type Date of Onset Reaction(s) Facility Acetaminophen (1 source) Acetaminophen Drug Allergy 4 [facility] Opioid Agonists (1 source) Propoxyphene Drug Allergy 4 [facility] Penicillins (antibiotic) (1 source) Penicillins Drug Allergy 4 [facility] (1 source) acetaminophen / propoxyphene; Translations: [Darvocet] Drug Allergy 2 [facility] (5 sources) Penicillins; Translations: [PENICILLINS] Drug allergy (disorder) 2 [facility]OF, Hives [facility] Repository (1 source) Darvocet-N 100 Drug allergy (disorder) 3 [facility] Repository (2 sources) Acetaminophen Drug Allergy 4 [facility] (2 sources) Propoxyphene Drug Allergy 4 [facility] (1 source) PROPOXYPHENE N-ACETAMINOPHEN; Translations: [PROPOXYPHENE N-ACETAMINOPHEN] Propensity to adverse reactions to drug (disorder) 4 [facility] Repository Medications Current Medications Medication Drug Class(es) [...] 3; Translations: [Stage 3 chronic kidney disease] 08-30-2023 Chronic Chronic kidney disease (2 sources) Chronic kidney disease; Translations: [Chronic kidney disease, stage 3b] Onset: 4 Chronic obstructive pulmonary disease and bronchiectasis (1 source) Chronic obstructive pulmonary disease, unspecified; Translations: [COPD UNSPECIFIED] Onset: 3 Chronic Coronary atherosclerosis and other heart disease (9 sources) Coronary arteriosclerosis; Translations: [Atherosclerotic heart disease of [place] coronary artery without angina pectoris] Onset: 3 [...] 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 Other aftercare (1 source) 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; Translations: [ASSISTED CURRENT USE OF ASPIRIN] Onset: 3 Episodic Other aftercare (1 source) Other longterm (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; Translations: [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] Onset: 3 Episodic Other [...] Documented Da te Episodic/Chronic Nonspecific chest pain (4 sources) Chest pain, unspecified; Translations: [CHEST PAIN UNSPECIFIED] Onset: 03-15-2022 Episodic Unclassified (1 source) COUGH, UNSPECIFIED; Translations: [COUGH, UNSPECIFIED] Onset: 07-19-2022 Results Test Name Value Interpretation Reference Range Facility Office Visiton 11-13-2024 Follow-up visit [id number] Gagandeep Pantoja 1960 F Date Provider Department Center 11/13/2024 166-IVAN MATA LENY Le Family History Problem Relation Age of Onset Heart failure Mother Diabetes Mother Dementia Mother Other Father Family Status - Relation Status Age at Mother Father Level of Service:23371 ME OFFICE/OUTPATIENT ESTABLISHED MOD MDM 30 MIN Reason for Visit and Comments: Coronary Artery Disease [187] - Denies chest pain but says she gets a poke every once in awhile. Hyperlipidemia [182] - Lipid panel drawn in June 2024. Hasn't been taking simvastatin and she doesn't know why. Hypertension [349095] - Renal US in June 2024, and routine labs drawn [address] Teague started her on lisinopril a few months ago. Valve Disorder [3372] - Had echo in Dec 2023 after last apt. Feels palpitations sometimes, doesn't last long . Shortness of Breath [489801] - With exerion Normal [facility] Office Visiton 12-03-2023 Follow-up visit [id number] Gagandeep Pantoja ia 1960 F Date Provider Department Center 12/03/2023 271-LAURIE ROB LENY Le Family History Problem Relation Age of Onset Heart failure Mother Diabetes Mother Dementia Mother Other Father Family Status - Relation Status Age at Mother Father Level of Service:52446 ME OFFICE/OUTPATIENT ESTABLISHED MOD MDM 30 MIN Normal [facility] Albumin [Mass/volume] in Ser um or Plasmaon 09-25-2023 Albumin [Mass/Vol] 3.8 g/dL 2.9-4.4 [facility] Centriole Ab IF (S) [Titer]o n 09-25-2023 Anti-Nuclear Ab Centriole Pattern TNP . [facility] Centromere Ab IF (S) [Titer] on 09-25-2023 Anti-Nuclear Ab Centromere Pattern TNP . [facility] Erythrocyte distribution wid th Auto (RBC) [Ratio]on 09-25-2023 Erythrocyte distribution width (RBC) [Ratio] 13.7 % 11.0-15.0 [facility] Estimated glomerular filtrat ion rate (GFR) non- Americanon 09-25-2023 GFR/1.73 sq M.predicted among non-blacks MDRD (S/P/Bld) [Vol rate/Area] 31 mL/min/{1.73_m2} Low >=60 [facility] Hematocrit Auto (Bld) [Volum e fraction]on 09-25-2023 Hematocrit (Bld) [Volume fraction] 38.8 % 36.0-48.0 [facility] Hemoglobin [Mass/volume] in Bloodon 09-25-2023 Hemoglobin (Bld) [Mass/Vol] 13.1 g/dL 12.0-16.0 [facility] Homogenous nuclear Ab patter n (S) [Titer]on 09-25-2023 Anti-Nuclear Ab Homogeneous Pattern TNP . [facility] IgA [Mass/volume] in Serum o r Plasmaon 09-25-2023 IgA [Mass/Vol] 332 mg/dL 87-352 [facility] IgG [Mass/volume] in Serum o r Plasmaon 09-25-2023 IgG [Mass/Vol] 1291 mg/dL [phone] [facility] IgM [Mass/volume] in Serum o r Plasmaon 09-25-2023 IgM [Mass/Vol] 206 mg/dL 26-217 [facility] Immunofixation for Urineon 0 09-25-2023 Interpretation Immunofixation (U) [Interp] Comment: . [facility] Comment on above: Presence of monoclon al protein is unclear at this time. Suggestrepeat in 3 to 6 months if clinically indicated.Performed at: [employer] [facility] - [facility] [address] [id number] Director: Lex Munguia PhD, Phone: [phone] Immunoglobulin light chains. kappa.free [Mass/volume] in Serumon 09-25-2023 Immunoglobulin light chains.kappa.free (S) [Mass/Vol] 54.2 mg/L Abnormal 3.3-19.4 [facility] Immunoglobulin light chains. kappa.free/Immunoglobulin light chains.lambda.free [Rayray 09-25-2023 Immunoglobulin light chains.kappa.free/Immuno globulin light chains.lambda.free (S) [Mass ratio] 1.00 0.26-1.65 [facility] Comment on above: Performed at: [employer] [facility] - [facility] [address] [id number] Director: Lex Munguia PhD, Phone: [phone] Immunoglobulin light chains. lambda.free [Mass/volume] in Serum or Plasmaon 09-25-2023 Immunoglobulin light chains.lambda.free [Mass/Vol] 54.3 mg/L Abnormal 5.7-26.3 [facility] Laboratory - Chemistry and C hemistry - challengeon 09-25-2023 Albumin [Mass/Vol] 3.6 g/dL 3.4-5.0 [facility] Calcium [Mass/Vol] 9.2 mg/dL 8.5-10.1 [facility] Chloride [Moles/Vol] 101 mmol/L 98-107 [facility] CO2 [Moles/Vol] 27.2 mmol/L 21.0-32.0 [facility] Creatinine [Mass/Vol] 1.68 mg/dL High 0.55-1.02 [facility] GFR/1.73 sq M.predicted MDRD (S/P/Bld) [Vol rate/Area] 37 mL/min/{1.73_m2} Low >=60 [facility] Glucose [Mass/Vol] 125 mg/dL High 74-106 [facility] Magnesium [Mass/Vol] 1.6 mg/dL Low 1.8-2.4 [facility] Potassium [Moles/Vol] 4.5 mmol/L 3.5-5.1 [facility] Protein [Mass/Vol] 0.3 g/dL Abnormal Not Observed [facility] Sodium [Moles/Vol] 138 mmol/L 136-145 [facility] Urate [Mass/Vol] 6.5 mg/dL High 2.6-6.0 [facility] Urea nitrogen [Mass/Vol] 21.0 mg/dL High 7.0-18.0 [facility] Urea nitrogen/Creatinine [Mass ratio] 12.5 mg/mg [facility] Bilirubin Ql (U) Negative NEGATIVE [facility] Glucose (U) [Mass/Vol] Negative NEGATIVE [facility] Ketones Ql (U) Negative NEGATIVE [facility] pH (U) 6.0 [pH] 5.0-9.0 [facility] Specific gravity (U) [Rel density] 1.025 1.005-1.025 [facility] Urobilinogen Qn (U) 1.0 {Samira'U}/dL 0.2-1.0 [facility] Laboratory - Specimen inform ationon 09-25-2023 Appearance (U) CLEAR CLEAR [facility] Color (U) LT. YELLOW YELLOW [facility] Laboratory - Urinalysison Leukocyte esterase Test strip Ql (U) Negative NEGATIVE [facility] Mucus Ql (Urine sed) TRACE Abnormal NONE SEEN [facility] Nitrite Ql (U) Negative NEGATIVE [facility] Protein (U) [Mass/Vol] 54.6 mg/dL High <=11.9 [facility] Protein Ql (U) 30 mg/dL Abnormal NEG/TRACE [facility] Leukocytes [#/volume] correc renato for nucleated erythrocytes in Blood by Automated counon 09-25-2023 WBC corrected for nucl RBC Auto (Bld) [#/Vol] 7.7 10 3/uL 4.0-11.0 [facility] MCH Auto (RBC) [Entitic mass ]on 09-25-2023 MCH (RBC) [Entitic mass] 30.8 pg 26.7-34.0 [facility] MCHC Auto (RBC) [Mass/Vol]on 09-25-2023 MCHC (RBC) [Mass/Vol] 33.8 g/dL 29.9-35.2 [facility] MCV Auto (RBC) [Entitic vol] on 09-25-2023 MCV (RBC) [Entitic vol] 91.1 fL 81.0-99.0 F [facility] Midbody Ab IF (S) [Titer]on 09-25-2023 Anti-Nuclear Ab Midbody Pattern TNP . [facility] Mitotic spindle apparatus Ab IF [Titer]on 09-25-2023 DE Spindle Apparatus Pattern TNP . [facility] Myeloperoxidase Ab [Units/vo lume] in Serum by Immunoassayon 09-25-2023 Myeloperoxidase Ab IA Qn (S) <0.2 units 0.0-0.9 [facility] No Panel Informationon 09-24 25-Hydroxy Vitamin D Total 21.8 ng/mL [facility] Comment on above: <20 ng/mL Vit D defi cient20-<30 ng/mL Vit D gtmnqtoojcie08-555 ng/mL Vit D sufficient>100 ng/mL Potential Toxicity Anti-Nuclear Antibody Comment 2 Comment . [facility] Comment on above: Pattern Potential Di sease Association Homogeneous Systemic Lupus Erythematosus, Drug Induced Systemic Lupus Erythematosus, Chronic Autoimmune hepatitis, Juvenile Idiopathic Arthritis Speckled Sjogren Syndrome, Systemic Lupus Erythematosus, Subacute Cutaneous Lupus, Lupus, Congenital Heart Block, Mixed Connective Tissue Disease, Scleroderma-diffuse, Scleroderma-Autoimmune Myositis Overlap Syndrome, Systemic Lupus Rmpbxszuynglz-Dbtddhuiqnz-Lpfltljvli Myositis Overlap Syndrome, Systemic Autoimmune Rheumatic Disease, [...] Cytopenias, Linear Scleroderma, Antiphospholipid Syndrome Performed at: [facility] [address] [id number] Director: Lex Munguia PhD, Phone: [phone] Glenn Potential Negin cronin Association Homogeneous Systemic Lupus Erythematosus, Drug Induced Systemic Lupus Erythematosus, Chronic Autoimmune hepatitis, Juvenile Idiopathic Arthritis Speckled Sjogren Syndrome, Systemic Lupus Erythematosus, Subacute Cutaneous Lupus, Lupus, Congenital Heart Block, Mixed Connective Tissue Disease, Scleroderma-diffuse, Scleroderma-Autoimmune Myositis Overlap Syndrome, Systemic Lupus Fbvjbudvrliwc-Nnxcyjbalvi-Ruwqtktwxq Myositis Overlap Syndrome, Systemic Autoimmune Rheumatic Disease, [...] Cytopenias, Linear Scleroderma, Antiphospholipid Syndrome Performed at: [facility] [address] [id number] Director: Lex Munguia PhD, Phone: [phone] Atypical p-ANCA <1:20 titer Neg:<1:20 [facility] Comment on above: The atypical pANCA p attern has been observed in asignificant percentage of patients with ulcerative colitis,primary sclerosing cholangitis and autoimmune hepatitis.Performed at: [employer] [facility] [id number] Director: Sam Tolbert MD, Phone: [phone] at: [facility] [address] [id number] Director: Lex Munguia PhD, Phone: [phone] Parathyroid Hormone (Intact) 98 pg/mL Abnormal 15-65 [facility] Comment on above: Performed at: [facility] [address] [id number] Director: Lex Munguia PhD, Phone: [phone] Perinuclear ANCA (p-ANCA) Antibody <1:20 titer Neg:<1:20 [facility] Comment on above: The presence of posi tive fluorescence exhibiting P-ANCA orC-ANCA patterns alone is not specific for the diagnosis ofWegener's Granulomatosis (WG) or microscopic polyangiitis.Decisions about treatment should not be based solely onANCA IFA results. The [employer] ANCA Group Consensusrecommends follow up testing of positive sera with both ME-3 and MPO-ANCA enzyme immunoassays. As many as 5% serumsamples are positive only by EIA. Ref. AM J Clin [id number];111:507-513. Phosphorus Level 3.9 mg/dL 2.6-4.7 [facility] Protein Electrophoresis Note Comment . [facility] Comment on above: Protein electrophore sis scan will follow via computer,mail, or skip pitman delivery. Urine Bacteria TRACE #/HPF Abnormal NONE SEEN [facility] Urine Culture Reflexed NO Fi [facility] Urine Occult Blood Negative NEGATIVE [facility] Urine Other Casts NONE SEEN #/LPF NONE SEEN [facility] Other Crystals None Seen #/HPF None Seen [facility] Urine Random Creatinine 138.59 mg/dL 20.0 0-300.0 0 [facility] Urine RBC 0-2 #/HPF 0-2 [facility] Urine Squamous Epithelial Cells FEW #/LPF Abnormal NONE/RARE [facility] Urine Transitional Epithelial Cells RARE #/LPF Abnormal NONE SEEN [facility] Urine WBC 0-2 #/HPF Abnormal NONE SEEN [facility] Nuclear Ab (S) [Titer]on Anti-Nuclear Antibody Screen Positive Abnormal . [facility] Comment on above: Negative <1:80 Borde rline 1:80 Positive >1:80 Negative <1:80 [facility] Positive >1:80 Nuclear dots nuclear Ab maggi colette IF (S) [Titer]on 09-25-2023 Anti-Nuclear Ab Nuclear Dot Pattern TNP . [facility] Nuclear membrane pores nucle ar Ab pattern IF (S) [Titer]on 09-25-2023 DE Nuclear Membrane Pattern TNP . [facility] Nucleolar nuclear Ab pattern (S) [Titer]on 09-25-2023 Anti-Nuclear Ab Nucleolar Pattern 1:160 Abnormal . [facility] Comment on above: ICAP nomenclature: A C-8,9,10 ICAP nomenclature: A C-8,9,10 PCNA extractable nuclear Ab IF (S) [Titer]on 09-25-2023 Anti-Nuclear Ab PCNA Pattern TNP . [facility] Platelet mean volume Auto (B ld) [Entitic vol]on 09-25-2023 Platelet mean volume (Bld) [Entitic vol] 11.9 fL 9.5-13.5 [facility] Platelets Auto (Bld) [#/Vol] on 09-25-2023 Platelets (Bld) [#/Vol] 215 10 3/uL 150-450 [facility] Protein [Mass/volume] in Ser um or Plasmaon 09-25-2023 Protein [Mass/Vol] 7.6 g/dL 6.0-8.5 [facility] Proteinase 3 Ab [Units/volum e] in Serum by Immunoassayon 09-25-2023 Proteinase 3 Ab IA Qn (S) <0.2 units 0.0-0.9 [facility] RBC Auto (Bld) [#/Vol]on RBC (Bld) [#/Vol] 4.26 10 6/uL 4.20-5.40 [facility] Serum classic neutrophil cyt oplasmic antibody titer by immunofluorescenceon 09-25-2023 Neutrophil cytoplasmic Ab.classic IF (S) [Titer] <1:20 titer Neg:<1:20 [facility] Serum globulin measurement ( mass/volume)on 09-25-2023 Globulin (S) [Mass/Vol] 3.8 g/dL 2.2-3.9 F [facility] Serum or plasma albumin/glob ulin mass ratioon 09-25-2023 Albumin/Globulin [Mass ratio] 1.1 {ratio} 0.7-1.7 [facility] Serum or plasma alpha 1 glob ulin measurement by electrophoresis (mass/volume)on 09-25-2023 Alpha 1 globulin Elph [Mass/Vol] 0.3 g/dL 0.0-0.4 [facility] Serum or plasma alpha 2 glob ulin measurement by electrophoresis (mass/volume)on 09-25-2023 Alpha 2 globulin Elph [Mass/Vol] 1.0 g/dL 0.4-1.0 [facility] Serum or plasma anion gap de terminationon 09-25-2023 Anion gap [Moles/Vol] 14.3 mmol/L Fi [facility] Serum or plasma beta globuli n measurement by electrophoresis (mass/volume)on 09-25-2023 Beta globulin Elph [Mass/Vol] 1.2 g/dL 0.7-1.3 [facility] Serum or plasma gamma globul in measurement by electrophoresis (mass/volume)on 09-25-2023 Gamma globulin Elph [Mass/Vol] 1.4 g/dL 0.4-1.8 [facility] Serum or plasma immunoelectr ophoresis interpretationon 09-25-2023 Interpretation IEP [Interp] Comment Abnormal . [facility] Comment on above: Immunofixation shows IgG monoclonal protein with lambdalight chain specificity. Speckled nuclear Ab pattern (S) [Titer]on 09-25-2023 Anti-Nuclear Ab Speckled Pattern 1:320 Abnormal . [facility] Comment on above: ICAP nomenclature: A C-2,4,5,29 ICAP nomenclature: A C-2,4,5,29 Urine protein/creatinine rat ioon 09-25-2023 Protein/Creatinine (U) [Ratio] 0.39 [facility] GROUP A STREP CULTUREon 07-10 S. pyogenes Ag Ql (Unsp spec) Culture Observations: NEGATIVE FOR GROUP A STREPTOCOCCUS. Normal [facility] Comment on above: Performed By: #### S SCRN GRASTCX ####[facility] [id number] [address]Dr. Marbella Jeffery STREPT SCREENon 07-19-2022 STREP SCREEN A Negative Normal NEGATIVE [facility] Comment on above: Performed By: #### S SCRN, GRASTCX ####[facility] [address] [address]Dr. Marbella Jeffery XR CHEST 2 Von 07-19-2022 [...] by: ALEX LEWIS Date: 2022-07-19 10:18 Normal [facility] CBC AUTO DIFFon 06-28-2022 BASO # 0.1 103/ul Normal 0.0-0.1 [facility] Comment on above: Performed By: #### C BC #### [facility] [address] [address] [address] Marbella Jeffery Basophils/100 WBC (Bld) 0.7 % Normal 0.2-2.0 [facility] Comment on above: Performed By: #### C BC #### [facility] [address] [place] [address] Dr. Marbella Jeffery EO # 0.2 103/ul Normal 0.0-0.7 [facility] Comment on above: Performed By: #### C BC #### [facility] [address] [place] [address] Dr. Marbella Jeffery Eosinophils/100 WBC (Bld) 1.8 % Normal 0.9-7.0 [facility] Comment on above: Performed By: #### C BC #### [facility] [address] [place] [address] Dr. Marbella Jeffery Erythrocyte distribution width (RBC) [Ratio] 13.5 % Normal 11.0-15.0 [facility] Comment on above: Performed By: #### C BC #### [facility] [address] [place] [address] Dr. Marbella Jeffery Hematocrit (Bld) [Volume fraction] 35.2 % Critically low 36.0-48.0 [facility] Comment on above: Performed By: #### C BC #### [facility] [address] [place] [address] Dr. Marbella Jeffery Hemoglobin (Bld) [Mass/Vol] 11.8 g/dL Critically low 12.0-16.0 [facility] Comment on above: Performed By: #### C BC #### [facility] [address] [place] [address] Dr. Marbella Jeffery IG # 0.02 10e3/ul Normal 0.00-0.03 [facility] Comment on above: Performed By: #### C BC #### [facility] [address] [place] [address] Dr. Marbella Jeffery IG % 0.2 % Normal 0.0-0.5 [facility] Comment on above: Performed By: #### C BC #### [facility] [address] [place] [address] Dr. Marbella Jeffery LYMPH # 2.2 103/ul Normal 1.2-3.8 [facility] Comment on above: Performed By: #### C BC #### [facility] [address] [place] [address] Dr. Marbella Jeffery Lymphocytes/100 WBC (Bld) 25.2 % Normal 20.5-60.0 [facility] Comment on above: Performed By: #### C BC #### [facility] [address] [place] [address] Dr. Marbella Jeffery MANUAL DIFF REQ NO Normal [facility] Comment on above: Performed By: #### C BC #### [facility] [address] [place] [address] Dr. Marbella Jeffery MCH (RBC) [Entitic mass] 30.3 pg Normal 26.7-34.0 [facility] Comment on above: Performed By: #### C BC #### [facility] [address] [place] [address] Dr. Marbella Jeffery MCHC (RBC) [Mass/Vol] 33.5 g/dL Normal 29.9-35.2 [facility] Comment on above: Performed By: #### C BC #### [facility] [address] [place] [address] Dr. Marbella Jeffery MCV (RBC) [Entitic vol] 90.3 fL Normal 81.0-99.0 [facility] Comment on above: Performed By: #### C BC #### [facility] [address] [place] [address] Dr. Marbella Jeffery MONO # 0.8 103/ul Normal 0.3-0.8 [facility] Comment on above: Performed By: #### C BC #### [facility] [address] [place] [address] Dr. Marbella Jeffery Monocytes/100 WBC (Bld) 9.2 % Normal 1.7-12.0 [facility] Comment on above: Performed By: #### C BC #### [facility] [address] [place] [address] Dr. Marbella Jeffery NEUT # 5.5 103/ul Normal 1.4-6.5 [facility] Comment on above: Performed By: #### C BC #### [facility] [address] [place] [address] Dr. Marbella Jeffery Neutrophils/100 WBC (Bld) 62.9 % Normal 43.0-75.0 [facility] Comment on above: Performed By: #### C BC #### [facility] [address] [address] [address] Marbella Jeffery Platelet mean volume (Bld) [Entitic vol] 11.2 fL Normal 9.5-13.5 [facility] Comment on above: Performed By: #### C BC #### [facility] [address] [place] [address] Dr. Marbella Jeffery PLT 203 103/ul Normal 150-450 [facility] Comment on above: Performed By: #### C BC #### [facility] [address] [place] [address] Dr. Marbella Jeffery RBC 3.90 106/ul Critically low 4.20-5.40 [facility] Comment on above: Performed By: #### C BC #### [facility] [address] [place] [address] Dr. Mareblla Jeffery WBC 8.7 103/ul Normal 4.0-11.0 [facility] Comment on above: Performed By: #### C BC #### [facility] [address] [place] [address] Dr. Marbella Jeffery FREE THYROXINE INDEX T7on FTI 5.09 Critically high 1.30-4.50 [facility] Comment on above: Performed By: #### T SH, LIPID, CMP, T7 #### [facility] [address] [place] [address] Dr. Marbella Jeffery T3U 38.0 % Normal 30.0-39.0 [facility] Comment on above: Performed By: #### T SH, LIPID, CMP, T7 #### [facility] [address] [place] [address] Dr. Marbella Jeffery T4 [Mass/Vol] 13.40 ug/dL Normal 4.80-13.90 [facility] Comment on above: Performed By: #### T SH, LIPID, CMP, T7 #### [facility] [address] [address] [address] Marbella Jeffery LIPID PROFILEon 06-28-2022 CHOL-HDL RATIO NORM SEE BELOW Normal [facility] Comment on above: Result Comment: 3.3 - 4.4 LOW RISK 4.4 - 7.1 AVERAGE RISK 7.1 - 11.0 MODERATE RISK >11.0 HIGH RISK Performed By: #### T SH, LIPID, CMP, T7 #### [facility] [address] [address] [address] Marbella Jeffery Cholesterol [Mass/Vol] 137 mg/dL Normal <=200 Th [facility] Comment on above: Performed By: #### T SH, LIPID, CMP, T7 #### [facility] [address] [address] [address] Marbella Jeffery Cholesterol in HDL [Mass/Vol] 44 mg/dL Normal 40-60 [facility] Comment on above: Performed By: #### T SH, LIPID, CMP, T7 #### [facility] [address] [address] [address] Marbella Jeffery Cholesterol in LDL [Mass/Vol] 67.2 mg/dL Normal [facility] Comment on above: Performed By: #### T SH, LIPID, CMP, T7 #### [facility] [address] [address] [address] Marbella Jeffery Cholesterol.total/Choles terol in HDL [Mass ratio] 3.1 {ratio} Normal [facility] Comment on above: Performed By: #### T SH, LIPID, CMP, T7 #### [facility] [address] [address] [address] Marbella Jeffery HDL NORMAL > or = 60 mg/dl - LO W CARDIOVASCULAR RISK <40 mg/dl - HIGH CARDIOVASCULAR RISK Normal [facility] Comment on above: Performed By: #### T SH, LIPID, CMP, T7 #### [facility] [address] [place] [address] Dr. Marbella Jeffery LDL CALC NORMAL SEE BELOW Normal [facility] Comment on above: Result Comment: <100 mg/dl OPTIMAL 100 - 129 mg/dl NEAR OR ABOVE OPTIMAL 130 - 159 mg/dl BORDERLINE HIGH 160 - 189 mg/dl HIGH >190 mg/dl VERY HIGH Performed By: #### T SH, LIPID, CMP, T7 #### [facility] [address] [address] [address] Marbella Jeffery Triglyceride [Mass/Vol] 129 mg/dL Normal <=150 [facility] Comment on above: Performed By: #### T SH, LIPID, CMP, T7 #### [facility] [address] [address] [address] Marbella Jeffery VLDL CALC 25.8 mg/dL Normal [facility] Comment on above: Performed By: #### T SH, LIPID, CMP, T7 #### [facility] [address] [address] [address] Marbella Jeffery PROF 14(COMP METB)on 023 Albumin [Mass/Vol] 3.1 g/dL Critically low 3.4-5.0 [facility] Comment on above: Performed By: #### T SH, LIPID, CMP, T7 #### [facility] [address] [place] [address] Dr. Marbella Jeffery Albumin/Globulin [Mass ratio] 0.7 {ratio} Normal [facility] Comment on above: Performed By: #### T SH, LIPID, CMP, T7 #### [facility] [address] [place] [address] Dr. Marbella Jeffery ALP [Catalytic activity/Vol] 168 U/L Critically high 46-116 [facility] Comment on above: Performed By: #### T SH, LIPID, CMP, T7 #### [facility] [address] [address] [address] Marbella eJffery ALT [Catalytic activity/Vol] 14 U/L Normal 14-59 [facility] Comment on above: Performed By: #### T SH, LIPID, CMP, T7 #### [facility] [address] [address] [address] Marbella Jeffery Anion gap [Moles/Vol] 12.8 mmol/L Normal [facility] Comment on above: Performed By: #### T SH, LIPID, CMP, T7 #### [facility] [address] [address] [address] Marbella Jeffery AST [Catalytic activity/Vol] 13 U/L Critically low 15-37 [facility] Comment on above: Performed By: #### T SH, LIPID, CMP, T7 #### [facility] [address] [address] [address] Marbella Jeffery Bilirubin [Mass/Vol] 0.4 mg/dL Normal 0.2-1.0 [facility] Comment on above: Performed By: #### T SH, LIPID, CMP, T7 #### [facility] [address] [address] [address] Marbella Jeffery Calcium [Mass/Vol] 9.0 mg/dL Normal 8.5-10.1 [facility] Comment on above: Performed By: #### T SH, LIPID, CMP, T7 #### [facility] [address] [place] [address] Dr. Marbella Jeffery Chloride [Moles/Vol] 105 mmol/L Normal 98-107 [facility] Comment on above: Performed By: #### T SH, LIPID, CMP, T7 #### [facility] [address] [place] [address] Dr. Marbella Jeffery CO2 [Moles/Vol] 27.9 mmol/L Normal 21.0-32.0 [facility] Comment on above: Performed By: #### T SH, LIPID, CMP, T7 #### [facility] [address] [address] [address] Marbella Jeffery Creatinine [Mass/Vol] 1.17 mg/dL Critically high 0.55-1.02 [facility] Comment on above: Performed By: #### T SH, LIPID, CMP, T7 #### [facility] [address] [address] [address] Marbella Jeffery EGFR-AF JORDANIAN 56 mL/min/1.73m2 Critically low >=60 [facility] Comment on above: Performed By: #### T SH, LIPID, CMP, T7 #### [facility] [address] [address] [address] Marbella Jeffery EGFR-NON AF JORDANIAN 47 mL/min/1.73m2 Critically low >=60 [facility] Comment on above: Performed By: #### T SH, LIPID, CMP, T7 #### [facility] [address] [address] [address] Marbella Jeffery Globulin (S) [Mass/Vol] 4.5 g/dL Normal [facility] [place] Comment on above: Performed By: #### T SH, LIPID, CMP, T7 #### [facility] [address] [address] [address] Marbella Jeffery Glucose [Mass/Vol] 105 mg/dL Normal 74-106 [facility] Comment on above: Performed By: #### T SH, LIPID, CMP, T7 #### [facility] [address] [place] [address] Dr. Marbella Jeffery Potassium [Moles/Vol] 3.7 mmol/L Normal 3.5-5.1 [facility] Comment on above: Performed By: #### T SH, LIPID, CMP, T7 #### [facility] [address] [place] [address] Dr. Marbella Jeffery Protein [Mass/Vol] 7.6 g/dL Normal 6.4-8.2 [facility] Comment on above: Performed By: #### T SH, LIPID, CMP, T7 #### [facility] [address] [place] [address] Dr. Marbella Jeffery Sodium [Moles/Vol] 142 mmol/L Normal 136-145 [facility] Comment on above: Performed By: #### T SH, LIPID, CMP, T7 #### [facility] [address] [place] [address] Dr. Marbella Jeffery Urea nitrogen [Mass/Vol] 14.0 mg/dL Normal 7.0-18.0 [facility] Comment on above: Performed By: #### T SH, LIPID, CMP, T7 #### [facility] [address] [place] [address] Dr. Marbella Jeffery Urea nitrogen/Creatinine [Mass ratio] 12.0 mg/mg Normal [facility] Comment on above: Performed By: #### T SH, LIPID, CMP, T7 #### [facility] [address] [address] [address] Marbella Jeffery TSHon 06-28-2022 TSH Qn m[IU]/L Critically low 0.358-3.740 [facility] Comment on above: Result Comment: TEST REPEATED FOR VERIFICATION Performed By: #### T SH, LIPID, CMP, T7 #### [facility] [address] [address] [address] Marbella Jeffery PROF CHEM 8 (BAS METB)on Anion gap [Moles/Vol] 11.2 mmol/L Normal [facility] Comment on above: Performed By: #### B MP ####[facility] [address] [address]DrNaomi Jeffery Calcium [Mass/Vol] 9.2 mg/dL Normal 8.5-10.1 [facility] Comment on above: Performed By: #### B MP ####[facility] [address] [address]DrNaomi Jeffery Chloride [Moles/Vol] 102 mmol/L Normal 98-107 [facility] Comment on above: Performed By: #### B MP ####[facility] [address] [address]Dr[address] Marbella Jeffery CO2 [Moles/Vol] 29.3 mmol/L Normal 21.0-32.0 [facility] Comment on above: Performed By: #### B MP ####[facility] [address] [address]DrNaomi Jeffery Creatinine [Mass/Vol] 1.32 mg/dL Critically high 0.55-1.02 [facility] Comment on above: Performed By: #### B MP ####[facility] [address] [address]DrNaomi Jeffery EGFR-AF JORDANIAN 49 mL/min/1.73m2 Critically low >=60 [facility] Comment on above: Performed By: #### B MP ####[facility] [address] [address]DrNaomi Jeffery EGFR-NON AF JORDANIAN 41 mL/min/1.73m2 Critically low >=60 [facility] Comment on above: Performed By: #### B MP ####[facility] [address] [id number]. Nalinijv Jose D Glucose [Mass/Vol] 127 mg/dL Critically high 74-106 [facility] [place] Comment on above: Performed By: #### B MP ####[facility] [address] [id number] Marbella Jeffery Potassium [Moles/Vol] 4.5 mmol/L Normal 3.5-5.1 [facility] Comment on above: Performed By: #### B MP ####[facility] [address] [address]Dr. Marbella Jeffery Sodium [Moles/Vol] 138 mmol/L Normal 136-145 [facility] Comment on above: Performed By: #### B MP ####[facility] [address] [id number]. Marbella Jose D Urea nitrogen [Mass/Vol] 20.0 mg/dL Critically high 7.0-18 .0 [facility] Comment on above: Performed By: #### B MP ####[facility] [address] [id number]. Marbella Jeffery Urea nitrogen/Creatinine [Mass ratio] 15.2 mg/mg Normal [facility] Comment on above: Performed By: #### B MP ####[facility] [address] [id number]. Nalinijv Jose D NM STRESS/REST MULTIon 03-15 NM STRESS/REST MULTI Patient: DEEPTHI PANTOJA Exam Date: 03/15/2022 : 1960 Gender:F Ordering : DR YONY TEAGUE . Admission #: [id number] Family : Order #: [id number] CLICK HERE TO VIEW EXAM RADIOLOGY REPORT [...] on 03/16/2022 at 07:23 Normal [facility] CT LUNG CANCER SCREENINGon 1 05-02-2021 [...] ALEX LEWIS Date: 2022-03-01 08:03 Normal [facility] MRI BRAIN WO W CONon 022 [...] MICHAEL ELIZONDO Date: 2021-08-20 08:33 Normal [facility] CREATININEon 08-19-2021 Creatinine [Mass/Vol] 1.35 mg/dL Critically high 0.55-1.02 [facility] Comment on above: Performed By: #### C SHILO #### [facility] [address] [place], [place] [address] Dr. Marbella Jeffery EGFR-AF JORDANIAN 48 mL/min/1.73m2 Critically low >=60 [facility] Comment on above: Performed By: #### C SHILO #### [facility] [address] [place], [place] [address] Dr. Marbella Jeffery EGFR-NON AF JORDANIAN 40 mL/min/1.73m2 Critically low >=60 [facility] Comment on above: Performed By: #### C SHILO #### [facility] [address] [place], [place] [address] Dr. Marbella Jeffery Vital Signs Date Time Vital Sign Value Performing Clinician Faci lity 09-11-2024 10:35-0400 Diastolic blood pressure 75 mm[Hg] Yony Teague MD Work Phone: [facility] 09-11-2024 10:35-0400 Systolic blood pressure 183 mm[Hg] Yony Teague MD Work Phone: [facility] 09-11-2024 10:28-0400 Body height 157.48 cm Yony Teague MD Work Phone: [facility] 09-11-2024 10:28-0400 Body mass index (BMI) [Ratio] 26.6 kg/m2 Yony Teague MD Work Phone: [facility] 09-11-2024 10:28-0400 Body temperature 96.7 [degF] Yony Teague MD Work Phone: [facility] 09-11-2024 10:28-0400 Body weight 66.22 kg Yony Teague MD Work Phone: [facility] 09-11-2024 10:28-0400 Heart rate 61 /min Yony Teague MD Work Phone: [facility] 09-11-2024 10:28-0400 Respiratory rate 18 /min Yony Teague MD Work Phone: [facility] 09-11-2024 10:28-0400 SaO2% (BldA) [Mass fraction] 98 % Yony Teague MD Work Phone: [facility] 10-04-2023 10:43-0400 Body height 157.48 cm [facility] 10-04-2023 10:43-0400 Body mass index (BMI) [Ratio] 26.5 kg/m2 [facility] 10-04-2023 10:43-0400 Body temperature 97.5 [degF] [facility] 10-04-2023 10:43-0400 Body weight 65.82 kg [facility] 10-04-2023 10:43-0400 Diastolic blood pressure 80 mm[Hg] [facility] 10-04-2023 10:43-0400 Heart rate 60 /min [facility] 10-04-2023 10:43-0400 Respiratory rate 16 /min [facility] 10-04-2023 10:43-0400 SaO2% (BldA) [Mass fraction] 97 % [facility] 10-04-2023 10:43-0400 Systolic blood pressure 140 mm[Hg] [facility] 08-30-2023 15:45-0400 Body height 157.48 cm [facility] 08-30-2023 15:45-0400 Body mass index (BMI) [Ratio] 26.2 kg/m2 [facility] 08-30-2023 15:45-0400 Body temperature 97.4 [degF] [facility] 08-30-2023 15:45-0400 Body weight 64.86 kg [facility] 08-30-2023 15:45-0400 Diastolic blood pressure 90 mm[Hg] [facility] 08-30-2023 15:45-0400 Heart rate 73 /min [facility] 08-30-2023 15:45-0400 Respiratory rate 16 /min [facility] 08-30-2023 15:45-0400 SaO2% (BldA) [Mass fraction] 97 % [facility] 08-30-2023 15:45-0400 Systolic blood pressure 204 mm[Hg] [facility] Encounters Encounter Date Encounter Type Care Provider Facility Start: 11-13-2024 End: 11-13-2024 ambulatory IVAN [facility] Start: 09-11-2024 End: 09-11-2024 ambulatory Yony Teague MD Work Phone: [facility] Work Phone: Start: 09-11-2024 End: 09-11-2024 Patient encounter procedure Kerwin Andrade MD [facility] Work Phone: Start: 12-03-2023 End: 12-03-2023 ambulatory [facility] Start: 10-04-2023 End: 10-04-2023 ambulatory [facility] Work Phone: Start: 10-04-2023 End: 10-04-2023 Patient encounter procedure [facility] Phys[facility] Work Phone: Start: 09-25-2023 Non-patient / Non-visit [facility] Physician [facility] Work Phone: Start: 08-30-2023 End: 08-30-2023 ambulatory [facility] Work Phone: Start: 08-30-2023 End: 08-30-2023 Patient encounter procedure [facility] Physician [facility] Work Phone: Start: 07-19-2022 End: 07-19-[address] YONY TEAGUE . Facility:[facility] Start: 06-28-2022 End: 06-29-[address] YONY TEAGUE . Facility:[facility] Start: 03-28-2022 End: 03-29-[address] LAURIE ROB Facility:[facility] Start: 03-15-2022 End: 03-16-[address] YONY TEAGUE . Facility:[facility] Start: 02-28-2022 End: 03-01-[address] YONY TEAGUE . Facility:[facility] Start: 08-19-2021 End: 08-20-[address] YONY TEAGUE . Facility:[facility] Start: 12-27-2017 End: 12-28-2017 Patient encounter DEFAULT PHYSICIAN Facility:[facility] Start: 12-03-2017 End: 12-04-2017 Patient encounter DEFAULT PHYSICIAN Facility:[facility] Plan of Treatment Date Care Activity Detail Author Immunofixation for Urine Fir [facility] Renal function 1999 panel - Serum or Plasma [facility] C enter Renal function 1999 panel - Serum or Plasma [facility] C enter Renal function 1999 panel - Serum or Plasma [facility] enter [facility] Payers Date Payer Category Payer Medicare [id number] 2017 Unknown [id number] 1961 Medicaid [id number] 1961 Medicare [id number] 1960 Unknown [id number] 2.16.84 [id number] 1960 Unknown [id number] 2.16.84 [id number] 1960 Unknown [id number] 2.16.84 [id number] 1960 Unknown [id number] 2.16.84 [id number] 1960 Unknown [id number] 2.16.84 [id number] 1960 Unknown [id number] 2.16.84 [id number] Medicare Medicare [id number] Unknown Social History Date Type Detail Facility Start: 08-30-2023 Tobacco smoking stat [facility] Smoker (finding) [facility] Start: 1960 Sex Assigned At Female F [facility] Start: 09-11-2024 [facility] Sex Female (finding) [facility] Progress note 11-13-2024 Note Date & Type Note Facility 11-13-2024 Note Cardiovascular Medic [facility] SUBJECTIVE Chief Complaint Patient presents with [...] kg (148 lb) SpO2 98% BMI 27.07 kg/m??? Smoking Status Every Day BSA 1.71 m??? Medications: Current Medications[6] Physical Exam Vitals reviewed. [...] III, and aVF. After 5 minutes, orientation was trending towards baseline . No mention of the amplitude of the changes is made. The patient had no chest pain or other symptoms. Normal nuclear medicine [...] Left anterior descending coronary artery: This vessel garcia (more content not included)... [facility] Progress note 12-03-2023 Note Date & Type Note Facility 12-03-2023 Note [facility] Cardiology Clinic Note Chief Complaint: Patient here [...] and aVF. After (more content not included)... [facility] Evaluation note Note Date & Type Note Facility Evaluation note Diagnosis Onset Date CAD (coronary artery disease) acute CKD (chronic kidney disease) stage 3, GFR 30-59 ml/min acute Hyperlipidemia acute [id number] acute Secondary hyperparathyroidism acute [facility] Work Phone: Evaluation note Note Date & Type Note Facility Evaluation note Diagnosis Onset Date CAD (coronary artery disease) acute CKD (chronic kidney disease) stage 3, GFR 30-59 ml/min acute Hyperlipidemia acute [id number] acute Secondary hyperparathyroidism acute CAD (coronary artery disease) acute CKD (chronic kidney disease) stage 3, GFR 30-59 ml/min acute Hyperlipidemia acute [id number] acute Hyperuricemia acute Hypomagnesemia acute MGUS (monoclonal gammopathy of unknown significance) acute Secondary hyperparathyroidism acute [facility] Work Phone: Evaluation note Note Date & Type Note Facility Evaluation note Diagnosis Onset Date Resolution CAD (coronary artery disease) acute September 11, 2024 10:24am CKD (chronic kidney disease) stage 3, GFR 30-59 ml/min acute September 11, 2024 10:24am Hyperlipidemia acute September 11, 2024 10:24am Hypertensive chronic kidney disease with stage 1 through stage 4 chronic ki acute September 11, 2024 10:24am Hyperuricemia acute September 11, 025 10:24am Hypomagnesemia acute September 11, 2024 10:24am MGUS (monoclonal gammopathy of unknown significance) acute September 10:24am Secondary hyperparathyroidism acute September 11 10:24am [facility] Work Phone: Reason for referral (narrative) Note Date & Type Note Facility Reason for referral (narrative) No reason for referral information available [facility] Work Phone: Summary Purpose Family History [...] disease) stage 3, GFR 30-59 ml/min Hyperlipidemia [id number] Secondary hyperparathyroidism Chief Complaint RENAL CKD / RENAL FA ILURE 6 week follow up Reason for Visit CAD (coronary artery disease) CKD (chronic kidney disease) stage 3, GFR 30-59 ml/min Hyperlipidemia [id number] Secondary hyperparathyroidism CAD (coronary artery disease) CKD (chronic kidney disease) stage 3, GFR 30-59 ml/min Hyperlipidemia [id number] Hyperuricemia Hypomagnesemia MGUS (monoclonal gammopathy of unknown [...] and content) DATE CREATED AUTHOR 01/01/2018 [facility] DATE CREATED AUTHOR AUTHOR'S ORGANIZ ATION 07/22/2022 [facility] DATE CREATED AUTHOR AUTHOR'S ORGANIZ ATION 11/15/2024 [facility] Care Teams (unrecognized sec tion and [...] BE BASED ON THE PRIMARY CLINICAL RECORDS. [facility] [employer] [facility]. provides no warranty or guarantee of the accuracy or completeness of information in this document.
[2024-11-19 11:27] LABS: Free T3 1.98 pg/mL (2.18-3.98); Thyroid Stimulating Hormone 0.012 uIU/mL (0.358-3.740)
== END 2024-11-19 09:31 | disposition home or self-care (01) ==
LOC: LAB 09:32
PROVIDERS: PCP Family Medicine; Visit Provider Family Medicine
DX: E03.9 Hypothyroidism, unspecified (principal)
CPT/HCPCS: 36415; 84436; 84443; 84481

== ENCOUNTER 2024-12-16 09:58 | Outpatient (OUT) | payer MEDICARE, SELFPAY ==
--- OUTSIDE RECORDS SUMMARY | 2024-12-16 10:08 | XMS_ITS | CCD ---
Author Organization [facility] CliniSyaz Care Team Providers Care Bottle Tester Name Role Phone PHYSICIAN, DEFAULT Unavailable Unavailable [...] Unavailable HOY ., DR BHAKTA Consulting Unavailable TRANSYLVANIA, DR MICHAEL Turcios Consulting Unavailable HOY ., DR BHAKTA Admitting Unavailable HOY ., DR BHAKTA Attending Unavailable HOY ., DR BHAKTA Primary Care Unavailable HOY ., DR BHAKTA Consulting Unavailable ZIEBER, DR ALEX Palma Consulting Unavailable Yony Teague MD Primary Care Provider [phone] Kerwin Andrade MD Attending Provider [phone] 3 IVAN MATA Attending Unavailable ELTAHAWY, LAURIE Attending Unavailable Allergies Allergy Classification Reported Allergen(s) Allergy Type Date of Onset Reaction(s) Facility Acetaminophen (1 source) Acetaminophen Drug Allergy 4 [facility] Opioid Agonists (1 source) Propoxyphene Drug Allergy 4 [facility] Penicillins (antibiotic) (1 source) Penicillins Drug Allergy 4 [facility] (1 source) acetaminophen / propoxyphene; Translations: [Darvocet] Drug Allergy 2 [facility] (5 sources) Penicillins; Translations: [PENICILLINS] Drug allergy (disorder) 2 [facility], Hives [facility] (1 source) Darvocet-N 100 Drug allergy (disorder) 3 [facility] (2 sources) Acetaminophen Drug Allergy 4 [facility] (2 sources) Propoxyphene Drug Allergy 4 [facility] (1 source) PROPOXYPHENE N-ACETAMINOPHEN; Translations: [PROPOXYPHENE N-ACETAMINOPHEN] Propensity to adverse reactions to drug (disorder) 4 [facility] Medications Current Medications Medication Drug Class(es) [...] Coronary arteriosclerosis; Translations: [Atherosclerotic heart disease of [place] cross coronary artery without angina pectoris] Onset: 3 [...] 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 Other aftercare (1 source) 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; Translations: [BODY AND FRAME MAN CURRENT USE OF ASPIRIN] Onset: 3 Episodic Other aftercare (1 source) Other jail (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; Translations: [OTH INTERMEDIATE CURRENT DRUG THERAPY] Onset: 3 Episodic Other [...] Range Facility Office Visiton 11-13-2024 Follow-up visit [id number] Gagandeep Pantoja 1960 F Date Provider Department Center 11/13/2024 166-IVAN MATA LENY Le Family History Problem Relation Age of Onset Heart failure Mother Diabetes Mother Dementia Mother Other Father Family Status - Relation Status Age at Mother Father Level of Service:78604 OR OFFICE/OUTPATIENT ESTABLISHED MOD MDM 30 MIN Reason for Visit and Comments: Coronary Artery Disease [187] - Denies chest pain but says she gets a poke every once in awhile. Hyperlipidemia [182] - Lipid panel drawn in June 2024. Hasn't been taking simvastatin and she doesn't know why. Hypertension [248899] - Renal US in June 2024, and routine labs drawn [address] Teague started her on lisinopril a few months ago. Valve Disorder [3372] - Had echo in Dec 2023 after last apt. Feels palpitations sometimes, doesn't last long . Shortness of Breath [901740] - With exerion Normal [facility] Office Visiton 12-03-2023 Follow-up visit [id number] Gagandeep Pantoja ia 1960 F Date Provider Department Center 12/03/2023 271-LAURIE ROB LENY Le Family History Problem Relation Age of Onset Heart failure Mother Diabetes Mother Dementia Mother Other Father Family Status - Relation Status Age at Mother Father Level of Service:31099 OR OFFICE/OUTPATIENT ESTABLISHED MOD MDM 30 MIN Normal [facility] Albumin [Mass/volume] in Ser um or Plasmaon 09-25-2023 Albumin [Mass/Vol] 3.8 g/dL 2.9-4.4 [facility] Centriole Ab IF (S) [Titer]o n 09-25-2023 Anti-Nuclear Ab Centriole Pattern TNP . [facility] Centromere Ab IF (S) [Titer] on 09-25-2023 Anti-Nuclear Ab Centromere Pattern TNP . [facility] Erythrocyte distribution wid th Auto (RBC) [Ratio]on 09-25-2023 Erythrocyte distribution width (RBC) [Ratio] 13.7 % 11.0-15.0 [facility] Estimated glomerular filtrat ion rate (GFR) non- Americanon 09-25-2023 GFR/1.73 sq M.predicted among non-blacks MDRD (S/P/Bld) [Vol rate/Area] 31 mL/min/{1.73_m2} Low >=60 [facility] Hematocrit Auto (Bld) [Volum e fraction]on 09-25-2023 Hematocrit (Bld) [Volume fraction] 38.8 % 36.0-48.0 [facility] Hemoglobin [Mass/volume] in Bloodon 09-25-2023 Hemoglobin (Bld) [Mass/Vol] 13.1 g/dL 12.0-16.0 [facility] Homogenous nuclear Ab patter n (S) [Titer]on 09-25-2023 Anti-Nuclear Ab Homogeneous Pattern TNP . [facility] IgA [Mass/volume] in Serum o r Plasmaon 09-25-2023 IgA [Mass/Vol] 332 mg/dL 87-352 [facility] IgG [Mass/volume] in Serum o r Plasmaon 09-25-2023 IgG [Mass/Vol] 1291 mg/dL 586-1602 [facility] IgM [Mass/volume] in Serum o r Plasmaon 09-25-2023 IgM [Mass/Vol] 206 mg/dL 26-217 [facility] Immunofixation for Urineon 0 09-25-2023 Interpretation Immunofixation (U) [Interp] Comment: . [facility] Comment on above: Presence of monoclon al protein is unclear at this time. Suggestrepeat in 3 to 6 months if clinically indicated.Performed at: [employer] [facility] [address] [id number] Director: Lex Munguia PhD, Phone: [phone] Immunoglobulin light chains. kappa.free [Mass/volume] in Serumon 09-25-2023 Immunoglobulin light chains.kappa.free (S) [Mass/Vol] 54.2 mg/L Abnormal 3.3-19.4 [facility] Immunoglobulin light chains. kappa.free/Immunoglobulin light chains.lambda.free [Rayray 09-25-2023 Immunoglobulin light chains.kappa.free/Immuno globulin light chains.lambda.free (S) [Mass ratio] 1.00 0.26-1.65 [facility] Comment on above: Performed at: [employer] [facility] [address] [id number] Director: Lex Munguia PhD, Phone: [phone] Immunoglobulin light chains. lambda.free [Mass/volume] in Serum or Plasmaon 09-25-2023 Immunoglobulin light chains.lambda.free [Mass/Vol] 54.3 mg/L Abnormal 5.7-26.3 [facility] Laboratory - Chemistry and C hemistry - challengeon 09-25-2023 Albumin [Mass/Vol] 3.6 g/dL 3.4-5.0 [facility] Calcium [Mass/Vol] 9.2 mg/dL 8.5-10.1 [facility] Chloride [Moles/Vol] 101 mmol/L 98-107 [facility] CO2 [Moles/Vol] 27.2 mmol/L 21.0-32.0 [facility] Creatinine [Mass/Vol] 1.68 mg/dL High 0.55-1.02 [facility] GFR/1.73 sq M.predicted MDRD (S/P/Bld) [Vol rate/Area] 37 mL/min/{1.73_m2} Low >=60 [facility] Glucose [Mass/Vol] 125 mg/dL High 74-106 [facility] Magnesium [Mass/Vol] 1.6 mg/dL Low 1.8-2.4 [facility] Potassium [Moles/Vol] 4.5 mmol/L 3.5-5.1 [facility] Protein [Mass/Vol] 0.3 g/dL Abnormal Not Observed [facility] Sodium [Moles/Vol] 138 mmol/L 136-145 [facility] Urate [Mass/Vol] 6.5 mg/dL High 2.6-6.0 [facility] Urea nitrogen [Mass/Vol] 21.0 mg/dL High 7.0-18.0 [facility] Urea nitrogen/Creatinine [Mass ratio] 12.5 mg/mg [facility] Bilirubin Ql (U) Negative NEGATIVE [facility] Glucose (U) [Mass/Vol] Negative NEGATIVE [facility] Ketones Ql (U) Negative NEGATIVE [facility] pH (U) 6.0 [pH] 5.0-9.0 [facility] Specific gravity (U) [Rel density] 1.025 1.005-1.025 [facility] Urobilinogen Qn (U) 1.0 {Samira'U}/dL 0.2-1.0 [facility] Laboratory - Specimen inform ationon 09-25-2023 Appearance (U) CLEAR CLEAR [facility] Color (U) LT. YELLOW YELLOW [facility] Laboratory - Urinalysison Leukocyte esterase Test strip Ql (U) Negative NEGATIVE [facility] Mucus Ql (Urine sed) TRACE Abnormal NONE SEEN [facility] Nitrite Ql (U) Negative NEGATIVE [facility] Protein (U) [Mass/Vol] 54.6 mg/dL High <=11.9 [facility] Protein Ql (U) 30 mg/dL Abnormal NEG/TRACE [facility] Leukocytes [#/volume] correc renato for nucleated erythrocytes in Blood by Automated counon 09-25-2023 WBC corrected for nucl RBC Auto (Bld) [#/Vol] 7.7 10 3/uL 4.0-11.0 [facility] MCH Auto (RBC) [Entitic mass ]on 09-25-2023 MCH (RBC) [Entitic mass] 30.8 pg 26.7-34.0 [facility] MCHC Auto (RBC) [Mass/Vol]on 09-25-2023 MCHC (RBC) [Mass/Vol] 33.8 g/dL 29.9-35.2 [facility] MCV Auto (RBC) [Entitic vol] on 09-25-2023 MCV (RBC) [Entitic vol] 91.1 fL 81.0-99.0 F [facility] Midbody Ab IF (S) [Titer]on 09-25-2023 Anti-Nuclear Ab Midbody Pattern TNP . [facility] Mitotic spindle apparatus Ab IF [Titer]on 09-25-2023 DE Spindle Apparatus Pattern TNP . [facility] Myeloperoxidase Ab [Units/vo lume] in Serum by Immunoassayon 09-25-2023 Myeloperoxidase Ab IA Qn (S) <0.2 units 0.0-0.9 [facility] No Panel Informationon 09-24 25-Hydroxy Vitamin D Total 21.8 ng/mL [facility] Comment on above: <20 ng/mL Vit D defi cient20-<30 ng/mL Vit D otxynxmdzvnu04-187 ng/mL Vit D sufficient>100 ng/mL Potential Toxicity Anti-Nuclear Antibody Comment [address] [facility] Comment on above: Pattern Potential Di sease Association Homogeneous Systemic Lupus Erythematosus, Drug Induced Systemic Lupus Erythematosus, Chronic Autoimmune hepatitis, Juvenile Idiopathic Arthritis Speckled Sjogren Syndrome, Systemic Lupus Erythematosus, Subacute Cutaneous Lupus, Lupus, Congenital Heart Block, Mixed Connective Tissue Disease, Scleroderma-diffuse, Scleroderma-Autoimmune Myositis Overlap Syndrome, Systemic Lupus Qjkryrrmptbah-Rcvohhzimdc-Qnqdmisomc Myositis Overlap Syndrome, Systemic Autoimmune Rheumatic Disease, [...] Cytopenias, Linear Scleroderma, Antiphospholipid Syndrome Performed at: [facility] [address] [id number] Director: Lex Munguia PhD, Phone: [phone] Glenn Potential Negin cronin Association Homogeneous Systemic Lupus Erythematosus, Drug Induced Systemic Lupus Erythematosus, Chronic Autoimmune hepatitis, Juvenile Idiopathic Arthritis Speckled Sjogren Syndrome, Systemic Lupus Erythematosus, Subacute Cutaneous Lupus, Lupus, Congenital Heart Block, Mixed Connective Tissue Disease, Scleroderma-diffuse, Scleroderma-Autoimmune Myositis Overlap Syndrome, Systemic Lupus Wdophbbwrkjvu-Vixhfvmkcnr-Hjpsfcssot Myositis Overlap Syndrome, Systemic Autoimmune Rheumatic Disease, [...] Cytopenias, Linear Scleroderma, Antiphospholipid Syndrome Performed at: [employer] [address] [id number] Director: Lex Munguia PhD, Phone: [phone] Atypical p-ANCA <1:20 titer Neg:<1:20 [facility] Comment on above: The atypical pANCA p attern has been observed in asignificant percentage of patients with ulcerative colitis,primary sclerosing cholangitis and autoimmune hepatitis.Performed at: [employer] [id number] Director: Sam Tolbert MD, Phone: [phone] at: [employer] [address] [id number] Director: Lex Munguia PhD, Phone: [phone] Parathyroid Hormone (Intact) 98 pg/mL Abnormal 15-65 [facility] Comment on above: Performed at: [employer] [address] [id number] Director: Lex Munguia PhD, Phone: [phone] Perinuclear ANCA (p-ANCA) Antibody <1:20 titer Neg:<1:20 [facility] Comment on above: The presence of posi tive fluorescence exhibiting P-ANCA orC-ANCA patterns alone is not specific for the diagnosis ofWegener's Granulomatosis (WG) or microscopic polyangiitis.Decisions about treatment should not be based solely onANCA IFA results. The International ANCA Group Consensusrecommends follow up testing of positive sera with both OR-3 and MPO-ANCA enzyme immunoassays. As many as 5% serumsamples are positive only by EIA. Ref. AM J Clin Svyhye0623;111:507-513. Phosphorus Level 3.9 mg/dL 2.6-4.7 [facility] Protein Electrophoresis Note Comment . [facility] Comment on above: Protein electrophore sis scan will follow via computer,mail, or data conversion developer delivery. Urine Bacteria TRACE #/HPF Abnormal NONE SEEN [facility] Urine Culture Reflexed NO Fi [facility] Urine Occult Blood Negative NEGATIVE [facility] Urine Other Casts NONE SEEN #/LPF NONE SEEN [facility] Urine Other Crystals None Seen #/HPF None Seen [facility] Urine Random Creatinine 138.59 mg/dL 20.0 0-300.[address] [facility] Urine RBC 0-2 #/HPF 0-2 [facility] Urine Squamous Epithelial Cells FEW #/LPF Abnormal NONE/RARE [facility] Urine Transitional Epithelial Cells RARE #/LPF Abnormal NONE SEEN [facility] Urine WBC 0-2 #/HPF Abnormal NONE SEEN [facility] Nuclear Ab (S) [Titer]on Anti-Nuclear Antibody Screen Positive Abnormal . [facility] Comment on above: Negative <1:80 Borde rline 1:80 Positive >1:80 Negative <1:80 [facility] Positive >1:80 Nuclear dots nuclear Ab maggi colette IF (S) [Titer]on 09-25-2023 Anti-Nuclear Ab Nuclear Dot Pattern TNP . [facility] Nuclear membrane pores nucle ar Ab pattern IF (S) [Titer]on 09-25-2023 DE Nuclear Membrane Pattern TNP . [facility] Nucleolar nuclear Ab pattern (S) [Titer]on 09-25-2023 Anti-Nuclear Ab Nucleolar Pattern 1:[address] [facility] Comment on above: ICAP nomenclature: A C-8,9,10 ICAP nomenclature: A C-8,9,10 PCNA extractable nuclear Ab IF (S) [Titer]on 09-25-2023 Anti-Nuclear Ab PCNA Pattern TNP . [facility] Platelet mean volume Auto (B ld) [Entitic vol]on 09-25-2023 Platelet mean volume (Bld) [Entitic vol] 11.9 fL 9.5-13.5 [facility] Platelets Auto (Bld) [#/Vol] on 09-25-2023 Platelets (Bld) [#/Vol] 215 10 3/uL 150-450 [facility] Protein [Mass/volume] in Ser um or Plasmaon 09-25-2023 Protein [Mass/Vol] 7.6 g/dL 6.0-8.5 [facility] Proteinase 3 Ab [Units/volum e] in Serum by Immunoassayon 09-25-2023 Proteinase 3 Ab IA Qn (S) <0.2 units 0.0-0.9 [facility] RBC Auto (Bld) [#/Vol]on RBC (Bld) [#/Vol] 4.26 10 6/uL 4.20-5.40 [facility] Serum classic neutrophil cyt oplasmic antibody titer by immunofluorescenceon 09-25-2023 Neutrophil cytoplasmic Ab.classic IF (S) [Titer] <1:20 titer Neg:<1:20 [facility] Serum globulin measurement ( mass/volume)on 09-25-2023 Globulin (S) [Mass/Vol] 3.8 g/dL 2.2-3.9 F [facility] Serum or plasma albumin/glob ulin mass ratioon 09-25-2023 Albumin/Globulin [Mass ratio] 1.1 {ratio} 0.7-1.7 [facility] Serum or plasma alpha 1 glob ulin measurement by electrophoresis (mass/volume)on 09-25-2023 Alpha 1 globulin Elph [Mass/Vol] 0.3 g/dL 0.0-0.4 [facility] Serum or plasma alpha 2 glob ulin measurement by electrophoresis (mass/volume)on 09-25-2023 Alpha 2 globulin Elph [Mass/Vol] 1.0 g/dL 0.4-1.0 [facility] Serum or plasma anion gap de terminationon 09-25-2023 Anion gap [Moles/Vol] 14.3 mmol/L Fi [facility] Serum or plasma beta globuli n measurement by electrophoresis (mass/volume)on 09-25-2023 Beta globulin Elph [Mass/Vol] 1.2 g/dL 0.7-1.3 [facility] Serum or plasma gamma globul in measurement by electrophoresis (mass/volume)on 09-25-2023 Gamma globulin Elph [Mass/Vol] 1.4 g/dL 0.4-1.8 [facility] Serum or plasma immunoelectr ophoresis interpretationon 09-25-2023 Interpretation IEP [Interp] Comment Abnormal . [facility] Comment on above: Immunofixation shows IgG monoclonal protein with lambdalight chain specificity. Speckled nuclear Ab pattern (S) [Titer]on 09-25-2023 Anti-Nuclear Ab Speckled Pattern 1:[address] [facility] Comment on above: ICAP nomenclature: A C-2,4,5,29 ICAP nomenclature: A C-2,4,5,29 Urine protein/creatinine rat ioon 09-25-2023 Protein/Creatinine (U) [Ratio] 0.39 [facility] GROUP A STREP CULTUREon 07-10 S. pyogenes Ag Ql (Unsp spec) Culture Observations: NEGATIVE FOR GROUP A STREPTOCOCCUS. Normal [facility] Comment on above: Performed By: #### S SCRN GRASTCX ####[facility] [id number] [address]Dr. Marbella Jeffery STREPT SCREENon 07-19-2022 STREP SCREEN A Negative Normal NEGATIVE [facility] Comment on above: Performed By: #### S SCRN, GRASTCX ####[facility] [address] [address]Dr. Marbella Jeffery XR CHEST 2 Von 07-19-2022 [...] above: Performed By: #### C BC #### [facility] [address] [address] [address] Marbella Jeffery Basophils/100 WBC (Bld) 0.7 % Normal 0.2-2.0 [facility] Comment on above: Performed By: #### C BC #### [facility] [address] [place] [address] Dr. Marbella Jeffery EO # 0.2 103/ul Normal 0.0-0.7 [facility] Comment on above: Performed By: #### C BC #### [facility] [address] [place] [address] Dr. Marbella Jeffery Eosinophils/100 WBC (Bld) 1.8 % Normal 0.9-7.0 [facility] Comment on above: Performed By: #### C BC #### [facility] [address] [place] [address] Dr. Marbella Jeffery Erythrocyte distribution width (RBC) [Ratio] 13.5 % Normal 11.0-15.0 [facility] Comment on above: Performed By: #### C BC #### [facility] [address] [place] [address] Dr. Marbella Jeffery Hematocrit (Bld) [Volume fraction] 35.2 % Critically low 36.0-48.0 [facility] Comment on above: Performed By: #### C BC #### [facility] [address] [place] [address] Dr. Marbella Jeffery Hemoglobin (Bld) [Mass/Vol] 11.8 g/dL Critically low 12.0-16.0 [facility] Comment on above: Performed By: #### C BC #### [facility] [address] [place] [address] Dr. Marbella Jeffery IG # 0.02 10e3/ul Normal 0.00-0.03 [facility] Comment on above: Performed By: #### C BC #### [facility] [address] [place] [address] Dr. Marbella Jeffery IG % 0.2 % Normal 0.0-0.5 [facility] Comment on above: Performed By: #### C BC #### [facility] [address] [place] [address] Dr. Marbella Jeffery LYMPH # 2.2 103/ul Normal 1.2-3.8 [facility] Comment on above: Performed By: #### C BC #### [facility] [address] [place] [address] Dr. Marbella Jeffery Lymphocytes/100 WBC (Bld) 25.2 % Normal 20.5-60.0 [facility] Comment on above: Performed By: #### C BC #### [facility] [address] [place] [address] Dr. Marbella Jeffery MANUAL DIFF REQ NO Normal [facility] Comment on above: Performed By: #### C BC #### [facility] [address] [place] [address] Dr. Marbella Jeffery MCH (RBC) [Entitic mass] 30.3 pg Normal 26.7-34.0 [facility] Comment on above: Performed By: #### C BC #### [facility] [address] [place] [address] Dr. Marbella Jeffery MCHC (RBC) [Mass/Vol] 33.5 g/dL Normal 29.9-35.2 [facility] Comment on above: Performed By: #### C BC #### [facility] [address] [place] [address] Dr. Marbella Jeffery MCV (RBC) [Entitic vol] 90.3 fL Normal 81.0-99.0 [facility] Comment on above: Performed By: #### C BC #### [facility] [address] [place] [address] Dr. Marbella Jeffery MONO # 0.8 103/ul Normal 0.3-0.8 [facility] Comment on above: Performed By: #### C BC #### [facility] [address] [place] [address] Dr. Marbella Jeffery Monocytes/100 WBC (Bld) 9.2 % Normal 1.7-12.0 [facility] Comment on above: Performed By: #### C BC #### [facility] [address] [place] [address] Dr. Marbella Jeffery NEUT # 5.5 103/ul Normal 1.4-6.5 [facility] Comment on above: Performed By: #### C BC #### [facility] [address] [place] [address] Dr. Marbella Jeffery Neutrophils/100 WBC (Bld) 62.9 % Normal 43.0-75.0 [facility] Comment on above: Performed By: #### C BC #### [facility] [address] [address] [address] Marbella Jeffery Platelet mean volume (Bld) [Entitic vol] 11.2 fL Normal 9.5-13.5 [facility] Comment on above: Performed By: #### C BC #### [facility] [address] [place] [address] Dr. Marbella Jeffery PLT 203 103/ul Normal 150-450 [facility] Comment on above: Performed By: #### C BC #### [facility] [address] [place] [address] Dr. Marbella Jeffery RBC 3.90 106/ul Critically low 4.20-5.40 [facility] Comment on above: Performed By: #### C BC #### [facility] [address] [place] [address] Dr. Marbella Jeffery WBC 8.7 103/ul Normal 4.0-11.0 [facility] Comment on above: Performed By: #### C BC #### [facility] [address] [place] [address] Dr. Marbella Jeffery FREE THYROXINE INDEX T7on FTI 5.09 Critically high 1.30-4.50 [facility] Comment on above: Performed By: #### T SH, LIPID, CMP, T7 #### [facility] [address] [place] [address] Dr. Marbella Jeffery T3U 38.0 % Normal 30.0-39.0 [facility] Comment on above: Performed By: #### T SH, LIPID, CMP, T7 #### [facility] [address] [place] [address] Dr. Marbella Jeffery T4 [Mass/Vol] 13.40 ug/dL Normal 4.80-13.90 [facility] Comment on above: Performed By: #### T SH, LIPID, CMP, T7 #### [facility] [address] [address] [address] Marbella Jeffery LIPID PROFILEon 06-28-2022 CHOL-HDL RATIO NORM SEE BELOW Normal [facility] Comment on above: Result Comment: 3.3 - 4.4 LOW RISK 4.4 - 7.1 AVERAGE RISK 7.1 - 11.0 MODERATE RISK >11.0 HIGH RISK Performed By: #### T SH, LIPID, CMP, T7 #### [facility] [address] [address] [address] Marbella Jeffery Cholesterol [Mass/Vol] 137 mg/dL Normal <=200 Th [facility] Comment on above: Performed By: #### T SH, LIPID, CMP, T7 #### [facility] [address] [address] [address] Marbella Jeffery Cholesterol in HDL [Mass/Vol] 44 mg/dL Normal 40-60 [facility] Comment on above: Performed By: #### T SH, LIPID, CMP, T7 #### [facility] [address] [address] [address] Marbella Jeffery Cholesterol in LDL [Mass/Vol] 67.2 mg/dL Normal [facility] Comment on above: Performed By: #### T SH, LIPID, CMP, T7 #### [facility] [address] [address] [address] Marbella Jeffery Cholesterol.total/Choles terol in HDL [Mass ratio] 3.1 {ratio} Normal [facility] Comment on above: Performed By: #### T SH, LIPID, CMP, T7 #### [facility] [address] [address] [address] Marbella Jeffery HDL NORMAL > or = 60 mg/dl - LO W CARDIOVASCULAR RISK <40 mg/dl - HIGH CARDIOVASCULAR RISK Normal [facility] Comment on above: Performed By: #### T SH, LIPID, CMP, T7 #### [facility] [address] [place] [address] Dr. Marbella Jeffery LDL CALC NORMAL SEE BELOW Normal [facility] Comment on above: Result Comment: <100 mg/dl OPTIMAL 100 - 129 mg/dl NEAR OR ABOVE OPTIMAL 130 - 159 mg/dl BORDERLINE HIGH 160 - 189 mg/dl HIGH >190 mg/dl VERY HIGH Performed By: #### T SH, LIPID, CMP, T7 #### [facility] [address] [address] [address] Marbella Jeffery Triglyceride [Mass/Vol] 129 mg/dL Normal <=150 [facility] Comment on above: Performed By: #### T SH, LIPID, CMP, T7 #### [facility] [address] [address] [address] Marbella Jeffery VLDL CALC 25.8 mg/dL Normal [facility] Comment on above: Performed By: #### T SH, LIPID, CMP, T7 #### [facility] [address] [address] [address] Marbella Jeffery PROF 14(COMP METB)on 023 Albumin [Mass/Vol] 3.1 g/dL Critically low 3.4-5.0 [facility] Comment on above: Performed By: #### T SH, LIPID, CMP, T7 #### [facility] [address] [place] [address] Dr. Marbella Jeffery Albumin/Globulin [Mass ratio] 0.7 {ratio} Normal [facility] Comment on above: Performed By: #### T SH, LIPID, CMP, T7 #### [facility] [address] [place] [address] Dr. Marbella Jeffery ALP [Catalytic activity/Vol] 168 U/L Critically high 46-116 [facility] Comment on above: Performed By: #### T SH, LIPID, CMP, T7 #### [facility] [address] [address] [address] Marbella Jeffery ALT [Catalytic activity/Vol] 14 U/L Normal 14-59 [facility] Comment on above: Performed By: #### T SH, LIPID, CMP, T7 #### [facility] [address] [address] [address] Marbella Jeffery Anion gap [Moles/Vol] 12.8 mmol/L Normal [facility] Comment on above: Performed By: #### T SH, LIPID, CMP, T7 #### [facility] [address] [address] [address] Marbella Jeffery AST [Catalytic activity/Vol] 13 U/L Critically low 15-37 [facility] Comment on above: Performed By: #### T SH, LIPID, CMP, T7 #### [facility] [address] [address] [address] Marbella Jeffery Bilirubin [Mass/Vol] 0.4 mg/dL Normal 0.2-1.0 [facility] Comment on above: Performed By: #### T SH, LIPID, CMP, T7 #### [facility] [address] [address] [address] Marbella Jeffery Calcium [Mass/Vol] 9.0 mg/dL Normal 8.5-10.1 [facility] Comment on above: Performed By: #### T SH, LIPID, CMP, T7 #### [facility] [address] [place] [address] Dr. Marbella Jeffery Chloride [Moles/Vol] 105 mmol/L Normal 98-107 [facility] Comment on above: Performed By: #### T SH, LIPID, CMP, T7 #### [facility] [address] [place] [address] Dr. Marbella Jeffery CO2 [Moles/Vol] 27.9 mmol/L Normal 21.0-32.0 [facility] Comment on above: Performed By: #### T SH, LIPID, CMP, T7 #### [facility] [address] [address] [address] Marbella Jeffery Creatinine [Mass/Vol] 1.17 mg/dL Critically high 0.55-1.02 [facility] Comment on above: Performed By: #### T SH, LIPID, CMP, T7 #### [facility] [address] [address] [address] Marbella Jeffery EGFR-AF POLISH 56 mL/min/1.73m2 Critically low >=60 [facility] Comment on above: Performed By: #### T SH, LIPID, CMP, T7 #### [facility] [address] [address] [address] Marbella Jeffery EGFR-NON AF POLISH 47 mL/min/1.73m2 Critically low >=60 [facility] Comment on above: Performed By: #### T SH, LIPID, CMP, T7 #### [facility] [address] [address] [address] Marbella Jeffery Globulin (S) [Mass/Vol] 4.5 g/dL Normal [facility] Comment on above: Performed By: #### T SH, LIPID, CMP, T7 #### [facility] [address] [address] [address] Marbella Jeffery Glucose [Mass/Vol] 105 mg/dL Normal 74-106 [facility] Comment on above: Performed By: #### T SH, LIPID, CMP, T7 #### [facility] [address] [place] [address] Dr. Marbella Jeffery Potassium [Moles/Vol] 3.7 mmol/L Normal 3.5-5.1 [facility] Comment on above: Performed By: #### T SH, LIPID, CMP, T7 #### [facility] [address] [place] [address] Dr. Marbella Jeffery Protein [Mass/Vol] 7.6 g/dL Normal 6.4-8.2 [facility] Comment on above: Performed By: #### T SH, LIPID, CMP, T7 #### [facility] [address] [place] [address] Dr. Marbella Jeffery Sodium [Moles/Vol] 142 mmol/L Normal 136-145 [facility] Comment on above: Performed By: #### T SH, LIPID, CMP, T7 #### [facility] [address] [place] [address] Dr. Marbella Jeffery Urea nitrogen [Mass/Vol] 14.0 mg/dL Normal 7.0-18.0 [facility] Comment on above: Performed By: #### T SH, LIPID, CMP, T7 #### [facility] [address] [place] [address] Dr. Marbella Jeffery Urea nitrogen/Creatinine [Mass ratio] 12.0 mg/mg Normal [facility] Comment on above: Performed By: #### T SH, LIPID, CMP, T7 #### [facility] [address] [address] [address] Marbella Jeffery TSHon 06-28-2022 TSH Qn m[IU]/L Critically low 0.358-3.740 [facility] Comment on above: Result Comment: TEST REPEATED FOR VERIFICATION Performed By: #### T SH, LIPID, CMP, T7 #### [facility] [address] [address] [address] Marbella Jeffery PROF CHEM 8 (BAS METB)on Anion gap [Moles/Vol] 11.2 mmol/L Normal [facility] Comment on above: Performed By: #### B MP ####[facility] [address] [address]DrNaomi Jeffery Calcium [Mass/Vol] 9.2 mg/dL Normal 8.5-10.1 [facility] Comment on above: Performed By: #### B MP ####[facility] [address] [address]DrNaomi Jeffery Chloride [Moles/Vol] 102 mmol/L Normal 98-107 [facility] Comment on above: Performed By: #### B MP ####[facility] [address] [address]Dr. Marbella Jeffery CO2 [Moles/Vol] 29.3 mmol/L Normal 21.0-32.0 [facility] Comment on above: Performed By: #### B MP ####[facility] [address] [address]DrNaomi Jeffery Creatinine [Mass/Vol] 1.32 mg/dL Critically high 0.55-1.02 [facility] Comment on above: Performed By: #### B MP ####[facility] [address] [address]DrNaomi Jeffery EGFR-AF POLISH 49 mL/min/1.73m2 Critically low >=60 [facility] Comment on above: Performed By: #### B MP ####[facility] [address] [address]DrNaomi Jeffery EGFR-NON AF POLISH 41 mL/min/1.73m2 Critically low >=60 [facility] Comment on above: Performed By: #### B MP ####[facility] [address] [id number]. Nalinijv Jose D Glucose [Mass/Vol] 127 mg/dL Critically high 74-106 [facility] Comment on above: Performed By: #### B MP ####[facility] [address] [id number]. Marbella Jeffery Potassium [Moles/Vol] 4.5 mmol/L Normal 3.5-5.1 [facility] Comment on above: Performed By: #### B MP ####[facility] [address] [address]Dr. Marbella Jeffery Sodium [Moles/Vol] 138 mmol/L Normal 136-145 [facility] Comment on above: Performed By: #### B MP ####[facility] [address] [id number]. Marbella Jose D Urea nitrogen [Mass/Vol] 20.0 mg/dL Critically high 7.0-18 .0 [facility] Comment on above: Performed By: #### B MP ####[facility] [address] [id number]. Marbella Jeffery Urea nitrogen/Creatinine [Mass ratio] 15.2 mg/mg Normal [facility] Comment on above: Performed By: #### B MP ####[facility] [address] [id number]. Nalinijv Jose D NM STRESS/REST MULTIon 03-15 NM STRESS/REST MULTI Patient: DEEPTHI PANTOJA Exam Date: 03/15/2022 : 1960 Gender:F Ordering : DR YONY TEAGUE . Admission #: [id number] Family : Order #: [id number] CLICK HERE TO VIEW EXAM RADIOLOGY REPORT [...] ALEX LEWIS Date: 2022-03-01 08:03 Normal [facility] MRI BRAIN WO W CONon 022 [...] above: Performed By: #### C SHILO #### [facility] [address] [place], [place] [address] Dr. Marbella Jeffery EGFR-AF POLISH 48 mL/min/1.73m2 Critically low >=60 [facility] Comment on above: Performed By: #### C SHILO #### [facility] [address] [place], [place] [address] Dr. Marbella Jeffery EGFR-NON AF POLISH 40 mL/min/1.73m2 Critically low >=60 [facility] Comment on above: Performed By: #### C SHILO #### [facility] [address] [place], [place] [address] Dr. Marbella Jeffery Vital Signs Date Time Vital Sign Value Performing Clinician Faci lity 09-11-2024 10:35-0400 Diastolic blood pressure 75 mm[Hg] Yony Teague MD Work Phone: [facility] 09-11-2024 10:35-0400 Systolic blood pressure 183 mm[Hg] Yony Teague MD Work Phone: [facility] 09-11-2024 10:28-0400 Body height 157.48 cm Yony Teague MD Work Phone: [facility] 09-11-2024 10:28-0400 Body mass index (BMI) [Ratio] 26.6 kg/m2 Yony Teague MD Work Phone: [facility] 09-11-2024 10:28-0400 Body temperature 96.7 [degF] Yony Teague MD Work Phone: [facility] 09-11-2024 10:28-0400 Body weight 66.22 kg Yony Teague MD Work Phone: [facility] 09-11-2024 10:28-0400 Heart rate 61 /min Yony Teague MD Work Phone: [facility] 09-11-2024 10:28-0400 Respiratory rate 18 /min Yony Teague MD Work Phone: [facility] 09-11-2024 10:28-0400 SaO2% (BldA) [Mass fraction] 98 % Yony Teague MD Work Phone: [facility] 10-04-2023 10:43-0400 Body height 157.48 cm [facility] 10-04-2023 10:43-0400 Body mass index (BMI) [Ratio] 26.5 kg/m2 [facility] 10-04-2023 10:43-0400 Body temperature 97.5 [degF] [facility] 10-04-2023 10:43-0400 Body weight 65.82 kg [facility] 10-04-2023 10:43-0400 Diastolic blood pressure 80 mm[Hg] [facility] 10-04-2023 10:43-0400 Heart rate 60 /min [facility] 10-04-2023 10:43-0400 Respiratory rate 16 /min [facility] 10-04-2023 10:43-0400 SaO2% (BldA) [Mass fraction] 97 % [facility] 10-04-2023 10:43-0400 Systolic blood pressure 140 mm[Hg] [facility] 08-30-2023 15:45-0400 Body height 157.48 cm [facility] 08-30-2023 15:45-0400 Body mass index (BMI) [Ratio] 26.2 kg/m2 [facility] 08-30-2023 15:45-0400 Body temperature 97.4 [degF] [facility] 08-30-2023 15:45-0400 Body weight 64.86 kg [facility] 08-30-2023 15:45-0400 Diastolic blood pressure 90 mm[Hg] [facility] 08-30-2023 15:45-0400 Heart rate 73 /min [facility] 08-30-2023 15:45-0400 Respiratory rate 16 /min [facility] 08-30-2023 15:45-0400 SaO2% (BldA) [Mass fraction] 97 % [facility] 08-30-2023 15:45-0400 Systolic blood pressure 204 mm[Hg] [facility] Encounters Encounter Date Encounter Type Care Provider Facility Start: 11-13-2024 End: 11-13-2024 ambulatory IVAN [facility] Start: 09-11-2024 End: 09-11-2024 ambulatory Yony Teague MD Work Phone: [facility] Work Phone: Start: 09-11-2024 End: 09-11-2024 Patient encounter procedure Kerwin Andrade MD [facility] Work Phone: Start: 12-03-2023 End: 12-03-2023 ambulatory [facility] Start: 10-04-2023 End: 10-04-2023 ambulatory [facility] Work Phone: Start: 10-04-2023 End: 10-04-2023 Patient encounter procedure [facility] Work Phone: Start: 09-25-2023 Non-patient / Non-visit [facility] Work Phone: Start: 08-30-2023 End: 08-30-2023 ambulatory [facility] Work Phone: Start: 08-30-2023 End: 08-30-2023 Patient encounter procedure [facility] Work Phone: Start: 07-19-2022 [...] 12-27-2017 End: 12-28-2017 Patient encounter DEFAULT PHYSICIAN Facility:[facility] Start: 12-03-2017 End: 12-04-2017 Patient encounter DEFAULT PHYSICIAN Facility:[facility] Plan of Treatment Date Care Activity Detail Author Immunofixation for Urine Fir [facility] Renal function 1999 panel - Serum or Plasma [facility] C enter Renal function 1999 panel - Serum or Plasma [facility] C enter Renal function 1999 panel - Serum or Plasma [facility] enter [facility] Payers Date Payer Category Payer Medicare [id number] 2017 Unknown [id number] 1961 Medicaid [id number] 1961 Medicare [id number] 1960 Unknown [id number] 2.16.84 [id number] 1960 Unknown [id number] 2.16.84 [id number] 1960 Unknown [id number] 2.16.84 [id number] 1960 Unknown [id number] 2.16.84 [id number] 1960 Unknown [id number] 2.16.84 [id number] 1960 Unknown [id number] 2.16.84 [id number] Medicare Medicare [id number] Unknown Social History Date Type Detail Facility Start: 08-30-2023 Tobacco smoking stat [facility] Smoker (finding) [facility] Start: 1960 Sex Assigned At Female F [facility] Start: 09-11-2024 [facility] Sex Female (finding) [facility] Progress note 11-13-2024 Note Date & Type Note Facility 11-13-2024 Note [facility] SUBJECTIVE Chief Complaint Patient presents with [...] This vessel garcia (more content not included)... [facility] Progress note 12-03-2023 Note Date & Type Note Facility 12-03-[address] [facility] Cardiology Clinic Note Chief Complaint: Patient here [...] and aVF. After (more content not included)... [facility] Evaluation note Note Date & Type Note Facility Evaluation note Diagnosis Onset Date CAD (coronary artery disease) acute CKD (chronic kidney disease) stage 3, GFR 30-59 ml/min acute Hyperlipidemia acute [id number] acute Secondary hyperparathyroidism acute [facility] Work Phone: Evaluation note Note Date & Type Note Facility Evaluation note Diagnosis Onset Date CAD (coronary artery disease) acute CKD (chronic kidney disease) stage 3, GFR 30-59 ml/min acute Hyperlipidemia acute [id number] acute Secondary hyperparathyroidism acute CAD (coronary artery disease) acute CKD (chronic kidney disease) stage 3, GFR 30-59 ml/min acute Hyperlipidemia acute [id number] acute Hyperuricemia acute Hypomagnesemia acute MGUS (monoclonal gammopathy of unknown significance) acute Secondary hyperparathyroidism acute [facility] Work Phone: Evaluation note Note Date & [...] 10:24am Secondary hyperparathyroidism acute September 11 10:24am [facility] Work Phone: Reason for referral (narrative) Note Date & Type Note Facility Reason for referral (narrative) No reason for referral information available [facility] Work Phone: Summary Purpose Family History No [...] disease) stage 3, GFR 30-59 ml/min Hyperlipidemia [id number] Secondary hyperparathyroidism Chief Complaint RENAL CKD / RENAL FA ILURE 6 week follow up Reason for Visit CAD (coronary artery disease) CKD (chronic kidney disease) stage 3, GFR 30-59 ml/min Hyperlipidemia [id number] Secondary hyperparathyroidism CAD (coronary artery disease) CKD (chronic kidney disease) stage 3, GFR 30-59 ml/min Hyperlipidemia [id number] Hyperuricemia Hypomagnesemia MGUS (monoclonal gammopathy of unknown [...] and content) DATE CREATED AUTHOR 01/01/2018 [facility] DATE CREATED AUTHOR AUTHOR'S ORGANIZ ATION 07/22/2022 [facility] DATE CREATED AUTHOR AUTHOR'S ORGANIZ ATION 11/15/2024 [facility] Care Teams (unrecognized sec tion and [...] BE BASED ON THE PRIMARY CLINICAL RECORDS. [facility] [employer] [facility]. provides no warranty or guarantee of the accuracy or completeness of information in this document.
[2024-12-16 11:34] LABS: Free T3 2.91 pg/mL (2.18-3.98); Thyroid Stimulating Hormone <0.007 uIU/mL (0.358-3.740)
== END 2024-12-16 09:59 | disposition home or self-care (01) ==
LOC: LAB 10:01
PROVIDERS: PCP Family Medicine; Visit Provider Family Medicine
DX: E03.9 Hypothyroidism, unspecified (principal)
CPT/HCPCS: 36415; 84436; 84443; 84481

== ENCOUNTER 2025-01-15 09:07 | Outpatient (OUT) | payer MEDICARE, SELFPAY ==
--- OUTSIDE RECORDS SUMMARY | 2024-08-19 06:30 | XMS_ITS ---
Author Organization The [facility] in [place] Address [address] [place] [address] Care Team Providers Care Print Cutter Name Role Phone Zaire Teague Primary Care Provider Romi Armijo Unavailable [phone] REASON FOR VISIT MD Encounters Encounter Location Date Provider Diagnosis [facility] [address] [place] [address] 08/19/2024 Romi Armijo Plan Of Treatment Next Appt Details Provider Name:ROMI ARMIJO , 02/17/2025 10:30:00 AM, [address] [place], [address], Progress Notes * Deepthi PANTOJADOB:1960 (64 yo F)Acc No.[id number]:08/19/2024 UNLOCKED PROGRESS NOTE Progress Notes Patient: Mich Deepthi IBANEZ :?Romi Armijo M.D.:1960???Age:64 Y ???Sex:FemaleDate:08/19/2024Phone:[phone]:[address] [place] [address]Pcp:Zaire Teague Subjective: * Chief Complaints: * 1 . MD. * Medical History: Objective: * Vitals: Assessment: Plan: * Treatment: * * Electronic signature of Romi Armijo MD, [id number] on 01/15/2025 at 09:14 AM ESTSign off status: PendingVisit Status:?VOICEMSG (Voice) * Provider: Rivka Armijo M.D. Date: 0 08/19/2024 Generated for Printing/Faxing/eTransmitting on:?01/15/2025 09:14 AM EST
--- OUTSIDE RECORDS SUMMARY | 2024-08-27 09:00 | XMS_ITS ---
Author Organization The [facility] in [place] Address [address] [place] [address] Care Team Providers Care Student Success Advisor Name Role Phone Zaire Teague Primary Care Provider Kailash Armijo Unavailable [phone] REASON FOR VISIT CL1 Encounters Encounter Location Date Provider Diagnosis [facility] On[facility] [address] [place] [address] 08/27/2024 Kailash Armijo Plan Of Treatment Next Appt Details Provider Name:KAILASH ARMIJO , 02/17/2025 10:30:00 AM, [address] [place], [address], Progress Notes * Deepthi PANTOJADOB:1960 (64 yo F)Acc No.[id number]:08/27/2024 UNLOCKED PROGRESS NOTE Progress Note Patient: Deepthi ZAVALA :?Kailash Armijo M.D.:1960???Age:64 Y ???Sex:FemaleDate:08/27/2024Phone:[phone]:[address] [place] [address]Pcp:Zaire Teague Subjective: * Chief Complaints: * 1 . CL1. * Medical History: Objective: * Vitals: Assessment: Plan: * Treatment: * * Electronic signature of Kailash Armijo MD, [id number] on 01/15/2025 at 09:13 AM ESTSign off status: PendingVisit Status:?PEN (Pending) * Provider: Rivka Armijo M.D. Date: 0 08/27/2024 Generated for Printing/Faxing/eTransmitting on:?01/15/2025 09:13 AM EST
--- OUTSIDE RECORDS SUMMARY | 2024-09-03 09:00 | XMS_ITS ---
Author Organization The [facility] in [place] Address [address] [place] [address] Care Team Providers Care Advertising Copywriter Name Role Phone Zaire Teague Primary Care Provider Kailash Armijo Unavailable [phone] REASON FOR VISIT CL1 Encounters Encounter Location Date Provider Diagnosis [facility] On[facility] [address] [place] [address] 09/03/2024 Kailash Armijo Plan Of Treatment Next Appt Details Provider Name:KAILASH ARMIJO , 02/17/2025 10:30:00 AM, [address] [place], [address], Progress Notes * Deepthi PANTOJADOB:1960 (64 yo F)Acc No.[id number]:09/03/2024 UNLOCKED PROGRESS NOTE Progress Note Patient: Deepthi ZAVALA :?Kailash Armijo M.D.:1960???Age:64 Y ???Sex:FemaleDate:09/03/2024Phone:[phone]:[address] [place] [address]Pcp:Zaire Teague Subjective: * Chief Complaints: * 1 . CL1. * Medical History: Objective: * Vitals: Assessment: Plan: * Treatment: * * Electronic signature of Kailash Armijo MD, [id number] on 01/15/2025 at 09:14 AM ESTSign off status: PendingVisit Status:?PEN (Pending) * Provider: Rivka Armijo M.D. Date: 0 09/03/2024 Generated for Printing/Faxing/eTransmitting on:?01/15/2025 09:14 AM EST
--- OUTSIDE RECORDS SUMMARY | 2024-11-18 06:30 | XMS_ITS ---
Author Organization [facility] [place] Address [address] [place] [address] Care Team Providers Care Fitter / Welder Name Role Phone Zaire Teague Primary Care Provider [phone] Kailash Armijo Unavailable [phone] REASON FOR VISIT MD Encounters Encounter Location Date Provider Diagnosis [facility] On[facility] [address] [place] [phone] 11/18/2024 Kailash Armijo Plan Of Treatment Next Appt Details Provider Name:KAILASH ARMIJO , 02/17/2025 10:30:00 AM, [address] [place], [address], Progress Notes * Deepthi PANTOJADOB:1960 (64 yo F)Acc No.[id number]:11/18/2024 UNLOCKED PROGRESS NOTE Progress Notes Patient: Mich Deepthi IBANEZ :?Kailash Armijo M.D.:1960???Age:64 Y ???Sex:FemaleDate:11/18/2024Phone:[phone]:[address] [place] [address]Pcp:Zaire Teague Subjective: * Chief Complaints: * 1 . MD. * Medical History: Objective: * Vitals: Assessment: Plan: * Treatment: * * Electronic signature of Kailash Armijo MD, [id number] on 01/15/2025 at 09:14 AM ESTSign off status: PendingVisit Status:?CONFPHONE (Voice) * Provider: Rivka Armijo M.D. Date: 0 11/18/2024 Generated for Printing/Faxing/eTransmitting on:?01/15/2025 09:14 AM EST
--- OUTSIDE RECORDS SUMMARY | 2025-01-15 09:13 | XMS_ITS | Clinical Summary ---
Author Organization [facility] Address [address] [place] [address] Care Team Providers Care Line Pilot Name Role Phone Jonatan Teague MD Primary Care Provider [phone] Allergies Active AllergyReactionsCriticalityNoted DateCommentsPropoxyphene N-Acetaminophen Other02/27/20147396WcahvekqbzzWordnPrqqsj52/19/2014 Medications MedicationSigDispense QuantityRefillsLast FilledStart DateEnd DateStatus levothyroxine (Synthroid, Levoxyl) 200 mcg tablet Take 175 mcg by mouth before breakfast.Active citalopram (CeleXA) 20 mg tablet Take 40 mg by mouth in the morning.Active aspirin 81 mg EC tablet Take 1 tablet every day by oral route.Active pantoprazole (ProtoNix) 40 mg EC tablet Take 40 mg by mouth in the morning.02/18/2022ctive carvedilol (Coreg) 25 mg tablet Indications:Essential hypertensionTake one tablet BID this replaces metoprolol 180 tablet ctive chlorthalidone (Hygroton) 25 mg tablet Indications:Essential hypertensionTake 1 tablet (25 mg) by mouth in the morning. 90 tablet ctive Additional Information Patient not taking.Reported on 11/13/2024 spironolactone (Aldactone) 25 mg tablet Indications:Essential hypertensionTake 1 tablet (25 mg) by mouth in the morning. 90 tablet ctive Additional Information Patient not taking.Reported on 11/13/2024 diclofenac (Voltaren) 75 mg EC tablet Take 75 mg by mouth in the morning and at bedtime. Do not crush, chew, or split. Active isosorbide mononitrate ER (Imdur) 30 mg 24 hr tablet Indications:Coronary arteriosclerosis in [place] artery,Atypical chest painTake 1 tablet (30 mg) by mouth in the morning. Do not crush or chew. 90 tablet ctive Additional Information Patient not taking.Reported on 11/13/2024 ergocalciferol (Vitamin D-2) 1.25 MG (73320 Units) capsule Take 1 capsule by mouth 1 (one) time per week.Active lisinopril 20 mg tablet Take 20 mg by mouth in the morning.5Active Trelegy Ellipta 200-62.5-25 mcg blister with device 11/12/2024tive ezetimibe (Zetia) 10 mg tablet Indications:Coronary arteriosclerosis in [place] artery,Mixed hyperlipidemiaTake 1 tablet (10 mg) by mouth at bedtime. 90 tablet tive hydrALAZINE (Apresoline) 25 mg tablet Indications:Essential hypertensionTake 1 tablet (25 mg) by mouth three times daily. 270 tablet 6Active simvastatin (Zocor) 20 mg tablet Indications:Coronary arteriosclerosis in [place] artery,Mixed hyperlipidemiaTake 1 tablet (20 mg) by mouth at bedtime. 90 tablet 5Active ezetimibe (Zetia) 10 mg tablet Indications:Coronary arteriosclerosis in [place] artery,Mixed hyperlipidemiaTake 1 tablet (10 mg) by mouth at bedtime. 90 tablet Discontinued(Reorder) simvastatin (Zocor) 20 mg tablet Indications:Coronary arteriosclerosis in [place] artery,Mixed hyperlipidemiaTake 1 tablet (20 mg) by mouth at bedtime. 90 tablet Discontinued(Reorder) hydrALAZINE (Apresoline) 25 mg tablet Indications:Essential hypertensionTake 1 tablet (25 mg) by mouth three times daily. 270 tablet Discontinued(Reorder) Active Problems ProblemNoted DateDiagnosed DateCKD (chronic kidney disease) stage 3, GFR 30-59 ml/min12/03/20236083Aqpttivbggxtx17/23/9902Dvxecucguprltt41/23/2024MGUS (monoclonal gammopathy of unknown significance)12/03/2023Secondary hyperparathyroidism 12/03/2023cute kidney injury superimposed on CKD04/12/2023 Assessment & Plan (05/11/2023 10:42 AM EST): [...] HTN is controlled. Impingement syndrome of shoulder hguwey57Mitral valve gawcmpyciivmu91/09/2023 Assessment & Plan (03/14/2023 4:23 PM EST): No concerning symptoms today Monitor with echocardiogram and F/u assessment of any concerning symptoms Assessment & Plan (10/31/2022 12:07 PM EDT): Stable Monitor with routine echocardiograms Essential saxlpmrkdenl02/11/2014 Assessment & Plan (05/11/2023 10:43 AM EST): [...] pt. Delfina Lawson NP Division of Cardiology, [facility]- [phone] Pager- [phone] Email- [email or web address] Assessment & Plan (03/14/2023 4:24 PM [...] pt to reach out community resources, her baptism, family and friends for assistance. IF any concerning symptoms she is to call office or 911 and she voiced understanding of red flag symptoms. Svqnnli7212/23/2012 Assessment & Plan (03/14/2023 4:26 PM EST): Will send script for meclizine for S/S of vertigo- pt to f/u with PCP for further evaluation and management Kxsdgxgcsnxu26/11/2013cquired eirtalvbmgfezd54/03/2013bnormal liver function tests02/05/2012Multiple vothcamon69/22/2012Coronary arteriosclerosis in [place] objxak5810/23/2011 Assessment & Plan (04/12/2023 12:07 PM EST): [...] tolerated and continue all medications. Atypical chest pain10/18/2011 Assessment & Plan (03/14/2023 4:25 PM EST): Will add imdur to med regime, d/w pt to call office for side effects- headache, hypotension or any concerns and she voiced understanding Assessment & Plan (10/31/2022 12:02 PM EDT): EKG today sinus rhythm and essentially unchanged from previous, no acute ST or T wave changes noted Most likely r/t emotional/family stress and uncontrolled b/p. Nisqpgnjxndvpn36/08/2012 Assessment & Plan (05/11/2023 10:44 AM EST): [...] turmoil in her life Type 1 diabetes sjvynnad32/08/2012 Encounters DateTypeDepartmentCare PlcjAxqplrgwtsf06/05/2025Refill [facility] [place] [address] [place] [address] Merry Layne MA Coronary arteriosclerosis in [place] artery; Mixed hyperlipidemia; Essential dqkwidaecpxs23/04/2025 10:20 AM EDTOffice Visit [facility] [address] [place] [address] Sophia Domingo CNP Uncontrolled hypertension (Primary Dx); Coronary arteriosclerosis in [place] artery; Mixed hyperlipidemia; Essential hypertension; Stage 3b chronic kidney disease (CMS/HCC)from Last 3 Months Immunizations ImmunizationAdministration DatesNext DueInfluenza, Nrlqndvxwru80/14/2017 Influenza, injectable, MDCK, preservative free, hcqjgyimuacd96/20/2021, 01/13/2020Influenza, seasonal, injectable, preservative free, 6 moonths & older 02/11/2015Moderna SARS-CoV-2 Mtiypklivqt42/27/2021,06/19/2020,05/22/2020 Family History Medical HistoryRelationNameCommentslung cancerFatherDementiaMotherDiabetesMother Heart failureMotherRelationNameStatusCommentsFatherMother Social History Tobacco UseTypesPacks/DayYears UsedDateSmoking Tobacco: Every DayCigarettes Smokeless Tobacco: Never Tobacco Cessation:Ready to Q uit: Not Asked; Counseling Given: Not Answered Alcohol UseStandard Drinks/WeekCommentsNot Currently0 (1 standard drink = 0.6 oz pure alcohol)DE Safety & EnvironmentAnswerDate RecordedFear of Current or Ex-PartnerNot on file05/03/2023Emotionally AbusedNot on file05/03/2023hysically AbusedNot on file05/03/2023Sexually AbusedNot on file05/03/2023hysically or Sexually AbusedNot on file05/03/2023CommentsUnknownSex and Gender InformationValueDate RecordedSex Assigned at WxylzTefvpn85/03/2025 11:20 AM EDT Legal JzdMkgzhf09/29/2022 9:14 PM EDTGender IcsaskjmCzvulo19/03/2025 11:20 AM EDTSexual OrientationHeterosexual or Tqfbpiva80/03/2025 11:20 AM EDT Last Filed Vital Signs Vital SignReadingTime TakenCommentsBlood Ewxjilvj953/8209 11:03 AM EDT Pnvoe4578/06/2024 10:35 AM EDTTemperature--Respiratory Rate--Oxygen Saturation 98%11/13/2024 10:35 AM EDTInhaled Oxygen Concentration--Kctjmg12.1 kg (148 lb) 11/13/2024 10:35 AM WVSOeufqn628.5 cm (5' 2 )11/13/2024 10:35 AM EDTBody Mass Index27.0711/13/2024 10:35 AM EDT Plan of Treatment DateTypeDepartmentCare Team (Latest Contact Info)Tferzfpitds78/09/2025 10:20 AM ESTOffice Visit [facility] [address] [place] [address] Sophia Domingo, NURSE OFFICE [address] [place] [address] Health MaintenanceDue DateLast DoneCommentsCT Qbyexbzlsuej98/27/1959Colonoscopy 1958Colorectal Cancer Hfwqdtqel33/27/1959Diabetes: Hemoglobin A1C 1958FIT-DNA1958FIT1958FOBT1958Medicare Annual Wellness (AWV)1960 6205Dkfmujfiugbtl84/27/1959Diabetes: Retinopathy Plyoqkyyt16/27/1969 Depression Winboqfsq30/27/1971Diabetes: Urine Protein Mwldykqtf59/27/1978 Pneumococcal Vaccine: 50+ Years (1 of 2 - PCV)1977Adult Hewxsar8304/07/1980 Xbvugesvb76/27/1999Zoster Vaccines (1 of 2)2008Fall Risk Screening 4COVID-19 Vaccine ( season), 03/07/2021, 06/19/2020, Additional history existsInfluenza Vaccine (#1)/, 01/13/2020, 01/23/2017, Additional history existsHIB VaccinesAged OutNo longer eligible based on patient's age to complete this topicHPV VaccinesAged OutNo longer eligible based on patient's age to complete this topicIPV VaccinesAged OutNo longer eligible based on patient's age to complete this topicMeningococcal B VaccineAged OutNo longer eligible based on patient's age to complete this topicMeningococcal VaccineAged OutNo longer eligible based on patient's age to complete this topicRotavirus VaccinesAged OutNo longer eligible based on patient's age to complete this topic Insurance Care Teams Team MemberRelationshipSpecialtyStart DateEnd Jonatan Teague MD [address] [place] [address] PCP - General03/20/22
--- OUTSIDE RECORDS SUMMARY | 2025-01-15 09:13 | XMS_ITS | Patient Health Record ---
Author Organization [facility] in [place] Address [address] [place] [address] Care Team Providers Care Regulatory Compliance Coordinator Name Role Phone Zaire Goode Primary Care Provider [phone] Romi Armijo Unavailable [phone] Allergies Allergen (clinical drug ingredient) Drug/Non Drug Allergy documented on EMR Reaction Allergy Type Onset Date Status rosuvastatin Crestor muscle aches Drug Allergy Activefluticasone / umeclidinium / vilanterolTrelegy ElliptatachycardiaDrug AllergyActivePenicillinhivesDrug AllergyActive Results Component Value Reference Range Notes COVID-19, Flu A+B IH (Not ye t reviewed by provider) Interpretation: Performing Lab: Notes/Report: COVID neg FLU AnegFLU BnegControlposURINE T PROTEIN CREAT RATIO Reviewed date:02/04/2024 02:16:42 PM Interpretation: Performing Lab: Notes/Report: [facility] ,Total Protein Urine Anfhju57.9<=11.9 mg/dLCreatinine Urine Devlyi098.3220.00- 300.00 mg/dLProtein Creatinine Ratio Urine0.27Performing Lab:see noteML - [facility] LBCBC no Diff (Hemogram) Reviewed date:02/04/2024 02:16:42 PM Interpretation: Performing Lab: Notes/Report: [facility] ,White Blood Count7.44.0-11.0 10 3/uLRed Blood Count3.894.20-5.40 10 6/uL Kytphofbjk22.112.0-16.0 g/vMEmafmeramk04.736.0-48.0 %Mean Corpuscular Bxeytl82.8 81.0-99.0 fLMean Corpuscular Pdltawfcar72.126.7-34.0 pgMean Corpuscular HGB Conc 33.929.9-35.2 g/dLRed Cell Distribution Width12.811.0-15.0 %Platelet Jgpbz339 150-450 10 3/uLMean Platelet Xgcrmq63.89.5-13.5 fLPerforming Lab:see noteML - [facility] LBCBC AUTO DIFF Reviewed date:09/11/2024 08:51:08 PM Interpretation: Performing Lab: Notes/Report: [facility] ,White Blood Count9.34.0-11.0 10 3/uLRed Blood Count4.074.20-5.40 10 6/uL Dsovwxiduq56.912.0-16.0 g/zVAojohvaats72.336.0-48.0 %Mean Corpuscular Jzumwp57.7 81.0-99.0 fLMean Corpuscular Reryjjnrsa25.226.7-34.0 pgMean Corpuscular HGB Conc 33.729.9-35.2 g/dLRed Cell Distribution Width14.011.0-15.0 %Platelet Abfur471 150-450 10 3/uLMean Platelet Jqzbln17.09.5-13.5 fLNeutrophils Percent Auto67.2 43.0-75.0 %Lymphocytes Percent Auto21.420.5-60.0 %Monocytes Percent Auto7.81.7- 12.0 %Eosinophils Percent Auto2.60.9-7.0 %Basophils Percent Auto0.60.2-2.0 % Immature Granulocytes Pct Auto0.40.0-0.5 %Neutrophils Absolute Auto6.21.4-6.5 10 3/uLLymphocytes Absolute Auto2.01.2-3.8 10 3/uLMonocytes Absolute Auto0.70.3-0.8 10 3/uLEosinophils Absolute Auto0.20.0-0.7 10 3/uLBasophils Absolute Auto0.10.0- 0.1 10 3/uLImmature Granulocytes Abs Auto0.040.00-0.03 10 3/uLPerforming Lab:see noteML - [facility] LBCRP Reviewed date:09/11/2024 08:51:08 PM Interpretation: Performing Lab: Notes/Report: [facility] ,C Reactive Protein1.89<=0.50 mg/dLPerforming Lab:see note - [facility] LBFERRITIN Reviewed date:09/11/2024 08:51:08 PM Interpretation: Performing Lab: Notes/Report: [facility] ,Tohiwuuo03.08.0-252.0 ng/mLPerforming Lab:see note - [facility] LB IMMUNOGLOBULIN E, TOTAL Reviewed date:09/11/2024 08:51:08 PM Interpretation: Performing Lab: Notes/Report: [facility] ,Immunoglobulin E, Wszlt611-245 IU/mL Performed at: [address] [id number] Medical Technologist Chemistry: Sam Tolbert MD, Phone: [phone] Performing Lab:[facility] LBIRON AND TIBC Reviewed date:09/11/2024 08:51:08 PM Interpretation: Performing Lab: Notes/Report: [facility] ,Iron70.050.0-170.0 ug/dLTotal Iron Binding Sfgbrlde169.0250.0-450.0 ug/dL Percent Iron Grtgjwmrjd14.2Performing Lab:see [facility] LB PROF 14(COMP METB) Reviewed date:09/11/2024 08:51:08 PM Interpretation: Performing Lab: Notes/Report: [facility] ,Yfizqv943102-910 mmol/LPotassium3.93.5-5.1 mmol/YQblnfnmb54484-147 mmol/LCarbon Utxvjju67.921.0-32.0 mmol/LAnion Gap11.3Zxxmwao4790-337 mg/dLBlood Urea Nitrogen 21.07.0-18.0 mg/dLCreatinine1.570.55-1.02 mg/dLEstimated GFR ( Hlcbyme79 >=60 mL/min/1.73m 2Estimated GFR (Non- Ame33>=60 mL/min/1.73m 2BUN Creatinine Ratio13.9Cqgypwk9.68.5-10.1 mg/dLBilirubin Total0.40.2-1.0 mg/dL Aspartate Amino Yzpyzopynaa8062-96 U/LAlanine Hkpupcrpviyafjxm5000-29 U/L Alkaline Fxkxrtonibt55229-799 U/LTotal Protein7.46.4-8.2 g/dLAlbumin Level3.0 3.4-5.0 g/dLGlobulin4.4Albumin Globulin Ratio0.7Performing Lab:see noteML - [facility] LBErythrocyte Sedimentation Rate Reviewed date:09/11/2024 08:51:08 PM Interpretation: Performing Lab: Notes/Report: [facility] ,Erythrocyte Sedimentation Rate71<=30 mm/hrPerforming Lab:see noteML - [facility] LBMAGNESIUM Reviewed date:09/11/2024 08:51:08 PM Interpretation: Performing Lab: Notes/Report: [facility] ,Magnesium1.81.8-2.4 mg/dLPerforming Lab:see noteML - [facility] LB RENAL FUNCTION PANEL Reviewed date:09/11/2024 08:51:08 PM Interpretation: Performing Lab: Notes/Report: [facility] ,Kshecm593001-365 mmol/LPotassium3.93.5-5.1 mmol/ABoisiqao46096-702 mmol/LCarbon Ejgtbwe62.921.0-32.0 mmol/LAnion Gap15.2Mzkzwgq5098-751 mg/dLBlood Urea Nitrogen 22.07.0-18.0 mg/dLCreatinine1.550.55-1.02 mg/dLEstimated GFR ( Mgdsxhi47 >=60 mL/min/1.73m 2Estimated GFR (Non- Ame33>=60 mL/min/1.73m 2BUN Creatinine Ratio14.6Oinwoou0.18.5-10.1 mg/dLPhosphorus4.12.6-4.7 mg/dLAlbumin Level3.13.4-5.0 g/dLPerforming Lab:see noteML - [facility] LBUA RANDOM W or MICROSCOPIC Reviewed date:09/11/2024 08:51:08 PM Interpretation: Performing Lab: Notes/Report: [facility] ,Color UrineLT. YELLOWYELLOWClarity UrineCLEARCLEARSpecific Dexter Urine1.020 1.005-1.025pH Urine6.05.0-9.0Protein Imysq61MJY/TRACE mg/dLGlucose Urine UA NEGATIVENEGATIVE mg/dLBilirubin UrineNEGATIVENEGATIVEKetones UrineNEGATIVE NEGATIVE mg/dLBlood UrineNEGATIVENEGATIVENitrite UrineNEGATIVENEGATIVE Urobilinogen Urine0.20.2-1.0 EU/dLLeukocyte Esterase UrineNEGATIVENEGATIVEWBC Urine0-2NONE SEEN #/HPFRBC Urine0-20-2 #/HPFBacteria UrineTRACENONE SEEN #/HPF Mucus UrineTRACENONE SEENSquamous Epithelial Cell UrineRARENONE/RARE #/LPF Crystals Seen?None SeenNone Seen #/HPFCast Seen?SEENNONE SEEN #/LPFHyaline Casts UrineRAREPerforming Lab:see noteML - [facility] LBURIC ACID SERUM Reviewed date:09/11/2024 08:51:08 PM Interpretation: Performing Lab: Notes/Report: [facility] ,Uric Acid7.22.6-6.0 mg/dLPerforming Lab:see note - [facility] LB URINE T PROTEIN CREAT RATIO Reviewed date:09/11/2024 08:51:08 PM Interpretation: Performing Lab: Notes/Report: [facility] ,Total Protein Urine Ybxipf78.4<=11.9 mg/dLCreatinine Urine Qsdasi094.4220.00- 300.00 mg/dLProtein Creatinine Ratio Urine0.56Performing Lab:see note - [facility] LBCBC no Diff (Hemogram) Reviewed date:09/11/2024 08:51:08 PM Interpretation: Performing Lab: Notes/Report: [facility] ,White Blood Count7.84.0-11.0 10 3/uLRed Blood Count4.204.20-5.40 10 6/uL Nvktuntisb40.812.0-16.0 g/jVHvkacdgekm06.936.0-48.0 %Mean Corpuscular Zqlyiv21.9 81.0-99.0 fLMean Corpuscular Uhmnyhfrek57.526.7-34.0 pgMean Corpuscular HGB Conc 34.729.9-35.2 g/dLRed Cell Distribution Width14.511.0-15.0 %Platelet Lmztg907 150-450 10 3/uLMean Platelet Sxzqwk35.89.5-13.5 fLPerforming Lab:see noteML - [facility] LBCBC AUTO DIFF (Not yet reviewed by provider) Interpretation: Performing Lab: Notes/Report: [facility] ,White Blood Count10.74.0-11.0 10 3/uLRed Blood Count4.314.20-5.40 10 6/uL Qzfdprhrnr48.312.0-16.0 g/sKBemzilvfpj90.736.0-48.0 %Mean Corpuscular Lkeyza77.8 81.0-99.0 fLMean Corpuscular Yxwawrivcn32.926.7-34.0 pgMean Corpuscular HGB Conc 34.429.9-35.2 g/dLRed Cell Distribution Width13.911.0-15.0 %Platelet Rbxnd083 150-450 10 3/uLMean Platelet Gciofn57.39.5-13.5 fLNeutrophils Percent Auto72.3 43.0-75.0 %Lymphocytes Percent Auto19.220.5-60.0 %Monocytes Percent Auto6.21.7- 12.0 %Eosinophils Percent Auto1.40.9-7.0 %Basophils Percent Auto0.70.2-2.0 % Immature Granulocytes Pct Auto0.20.0-0.5 %Neutrophils Absolute Auto7.81.4-6.5 10 3/uLLymphocytes Absolute Auto2.11.2-3.8 10 3/uLMonocytes Absolute Auto0.70.3-0.8 10 3/uLEosinophils Absolute Auto0.20.0-0.7 10 3/uLBasophils Absolute Auto0.10.0- 0.1 10 3/uLImmature Granulocytes Abs Auto0.020.00-0.03 10 3/uLPerforming Lab:see noteML - [facility] LBCRP (Not yet reviewed by provider) Interpretation: Performing Lab: Notes/Report: [facility] ,C Reactive Protein1.44<=0.50 mg/dLPerforming Lab:see noteML - [facility] LBFERRITIN (Not yet reviewed by provider) Interpretation: Performing Lab: Notes/Report: [facility] ,Smzepyyi780.08.0-252.0 ng/mLPerforming Lab:see note - [facility] LBIRON AND TIBC (Not yet reviewed by provider) Interpretation: Performing Lab: Notes/Report: [facility] ,Iron91.050.0-170.0 ug/dLTotal Iron Binding Hzbzilcw368.0250.0-450.0 ug/dL Percent Iron Ggycbtandy38.3Performing Lab:see noteML - [facility] LB PROF CHEM 8 (BAS METB) (Not yet reviewed by provider) Interpretation: Performing Lab: Notes/Report: [facility] ,Xnnbwg200731-233 mmol/LPotassium3.93.5-5.1 mmol/FNlwjknlo61232-828 mmol/LCarbon Lowfhsm33.121.0-32.0 mmol/LAnion Gap14.9Sdfflvv83424-477 mg/dLBlood Urea Ruafntph40.07.0-18.0 mg/dLCreatinine1.530.55-1.02 mg/dLEstimated GFR ( Xheckxk11>=60 mL/min/1.73m 2Estimated GFR (Non- Ame34>=60 mL/min/1.73m 2 BUN Creatinine Ratio10.2Uoyjnav2.98.5-10.1 mg/dLPerforming Lab:see noteML - [facility] LBErythrocyte Sedimentation Rate (Not yet reviewed by provider) Interpretation: Performing Lab: Notes/Report: [facility] ,Erythrocyte Sedimentation Rate36<=30 mm/hrPerforming Lab:see note - [facility] LBIFE, PE and FLC, Serum (Not yet reviewed by provider) Interpretation: Performing Lab: Notes/Report: [facility] ,Immunoglobulin G, Qn, Qpsyb4298898-9057 mg/dLImmunoglobulin A, Qn, Dzqef11472- 352 mg/dLImmunoglobulin M, Qn, Sygjq05015-806 mg/dLProtein, Total6.96.0-8.5 g/dL Albumin3.42.9-4.4 g/yTTdbye-9-Qfracaid6.30.0-0.4 g/bLRastx-2-Rwunmipp6.90.4-1.0 g/dLBeta Globulin1.10.7-1.3 g/dLGamma Globulin1.20.4-1.8 g/dLM-SpikeComment:Not Observed g/dL Monoclonal IgG lambda #1 = 0.3 g/dl Monoclonal IgG lambda #2 = 0.2 g/dl Globulin, Total3.52.2-3.9 g/dLA/G Ratio1.00.7-1.7Immunofixation Result, Serum Comment. Immunofixation shows a biclonal IgG protein with lambda specificity. Please note:Comment. Protein electrophoresis scan will follow via computer, mail, or molder sweep delivery. Free [place] Lt Chains,S49.13.3-19.4 mg/LFree Lambda Lt Chains,S48.75.7-26.3 mg/L [place]/Lambda Ratio,S1.010.26-1.65 Performed at: [place] [address] Medical Technologist Chemistry: Lex Munguia PhD, Phone: [facility] Performing Lab:see [facility] LBVitamin B12 (Not yet reviewed by provider) Interpretation: Performing Lab: Notes/Report: [facility] ,Vitamin C43927959-2153 pg/mL Performed at: [address] [id number] Medical Technologist Chemistry: Lex Munguia PhD, Phone: [phone] Performing Lab:see [facility] LBFREE T3 Reviewed date:11/19/2024 12:34:18 PM Interpretation: Performing Lab: Notes/Report: [facility] ,Free T31.982.18-3.98 pg/mLPerforming Lab:see noteML - [facility] LB T4 Reviewed date:11/19/2024 12:34:18 PM Interpretation: Performing Lab: Notes/Report: [facility] ,T4 Thyroxine8.504.80-13.90 ug/dLPerforming Lab:see note - [facility] LBTSH Reviewed date:11/19/2024 12:34:18 PM Interpretation: Performing Lab: Notes/Report: [facility] ,Thyroid Stimulating Hormone0.0120.358-3.740 uIU/mLPerforming Lab:see noteML - [facility] LBFREE T3 Reviewed date:12/16/2024 04:24:55 PM Interpretation: Performing Lab: Notes/Report: [facility] ,Free T32.912.18-3.98 pg/mLPerforming Lab:see noteML - [facility] LB T4 Reviewed date:12/16/2024 04:24:55 PM Interpretation: Performing Lab: Notes/Report: [facility] ,T4 Siqnmfizv55.504.80-13.90 ug/dLPerforming Lab:see noteML - [facility] LBTSH Reviewed date:12/16/2024 04:24:55 PM Interpretation: Performing Lab: Notes/Report: [facility] ,Thyroid Stimulating Hormone<0.0070.358-3.740 uIU/mLPerforming Lab:see note - [facility] LBIRON AND TIBC (Not yet reviewed by provider) Interpretation: Performing Lab: Notes/Report: [facility] ,Iron79.050.0-170.0 ug/dLTotal Iron Binding Xkjlsjtd895.0250.0-450.0 ug/dL Percent Iron Egwicotiij64.9Performing Lab:see note - [facility] LB PTH, Intact Reviewed date:09/14/2024 01:41:33 PM Interpretation: Performing Lab: Notes/Report: [facility] ,PTH, Zrexsf6698-01 pg/mL Performed at: - [facility] [address] [id number] Medical Technologist Chemistry: Lex Munguia PhD, Phone: [phone] Performing Lab:see note - [facility] LBVITAMIN D 25 [place] Reviewed date:09/11/2024 08:51:08 PM Interpretation: Performing Lab: Notes/Report: [facility] ,Vitamin D45.6 <20 ng/mL Vit D deficient 20-<30 ng/mL Vit D insufficient 30-100 ng/mL Vit D sufficient >100 ng/mL Potential Toxicity Performing Lab:see note - [facility] LBIFE, PE and FLC, Serum Reviewed date:09/11/2024 08:51:08 PM Interpretation: Performing Lab: Notes/Report: [facility] ,Immunoglobulin G, Qn, Kcxej6328396-9499 mg/dLImmunoglobulin A, Qn, Irtxi93936- 352 mg/dLImmunoglobulin M, Qn, Ugfie23512-110 mg/dLProtein, Total6.96.0-8.5 g/dL Albumin3.32.9-4.4 g/nUShrwz-1-Lwcufuku4.30.0-0.4 g/eFEgkth-9-Tdccyhyz7.00.4-1.0 g/dLBeta Globulin1.20.7-1.3 g/dLGamma Globulin1.10.4-1.8 g/dLM-Spike0.3Not Observed g/dLGlobulin, Total3.62.2-3.9 g/dLA/G Ratio1.00.7-1.7Immunofixation Result, SerumComment. Immunofixation shows IgG monoclonal protein with lambda light chain specificity. Please note:Comment. Protein electrophoresis scan will follow via computer, mail, or molder sweep delivery. Free [place] Lt Chains,S53.43.3-19.4 mg/LFree Lambda Lt Chains,S56.45.7-26.3 mg/L [place]/Lambda Ratio,S0.950.26-1.65 Performed at: [address] [id number] Medical Technologist Chemistry: Lex Munguia PhD, Phone: [phone] Performing Lab:see note - [facility] LBUS renal BI Reviewed date:07/04/2024 12:23:49 PM Interpretation: Performing Lab: Notes/Report: Source Facility: [place] [address] [place] [address] Ultrasound Report Signed Patient: MYRIAM PANTOJA MR#: [id number] : 1960 Acct:[id number] Age/Sex: 64 / F ADM Date: 07/04/24 Loc: US Attending Dr: Yony Goode M.D. Ordering Physician: Yony Goode M.D. Date of Service: 07/04/24 Procedure(s): US renal BI Accession Number(s): [id number] cc: Yony Goode M.D. The [place] [address] Patient Name: MYRIAM PANTOJA MRN: [id number] date: 1960 Sex: F Assigned Patient Location: [place] Current Patient Location: [place] Accession/Order Number: [id number] Exam Date: 07/04/2024 10:27 Report Date: 07/04/2024 [...] Jr., D.O. 07/04/2024 10:28 AM Dictation Location: [place] [address] Electronically authenticated by: [id number] Y Date: 07/04/2024 10:28 Dictated By: Olu Lam M.D. Signed By: 07/04/24 1030 DD/ 1028 TD/TT: Cis Coordinator:TSH Reviewed date:06/28/2024 11:53:33 AM Interpretation: Performing Lab: Notes/Report: [facility] ,Thyroid Stimulating Hormone0.0080.358-3.740 uIU/mLPerforming Lab:see noteML - [facility] LBT4 Reviewed date:06/28/2024 11:53:33 AM Interpretation: Performing Lab: Notes/Report: [facility] ,T4 Thyroxine7.904.80-13.90 ug/dLPerforming Lab:see noteML - [facility] LBPROF 14(COMP METB) Reviewed date:06/28/2024 11:53:33 AM Interpretation: Performing Lab: Notes/Report: [facility] ,Kppddw288745-271 mmol/LPotassium4.53.5-5.1 mmol/FHphnzgfi03059-855 mmol/LCarbon Byllqqg83.321.0-32.0 mmol/LAnion Gap12.8Cegyqfz58038-570 mg/dLBlood Urea Wxniaovp24.07.0-18.0 mg/dLCreatinine2.410.55-1.02 mg/dLEstimated GFR ( Xepones57>=60 mL/min/1.73m 2Estimated GFR (Non- Ame20>=60 mL/min/1.73m 2 BUN Creatinine Ratio13.1Xybnpiq7.58.5-10.1 mg/dLBilirubin Total0.60.2-1.0 mg/dL Aspartate Amino Ptcgfugunis1975-27 U/LAlanine Avvgwpblcqugbkyw7517-33 U/L Alkaline Llngvgiysoe21406-474 U/LTotal Protein6.76.4-8.2 g/dLAlbumin Level2.7 3.4-5.0 g/dLGlobulin4.0Albumin Globulin Ratio0.7Performing Lab:see note - [facility] LBLIPID PROFILE Reviewed date:06/28/2024 11:53:33 AM Interpretation: Performing Lab: Notes/Report: [facility] ,Lpkyfgulhkdor25<=150 mg/aTZstbtfpgphi553<=200 mg/dLHDL Rotfxpqyyio4534-01 mg/dL > or =60 mg/dl - LOW CARDIOVASCULAR RISK <40 mg/dl - HIGH CARDIOVASCULAR RISK LDL Cholesterol Jtchwskhxj18.8 <100 mg/dl OPTIMAL 100-129 mg/dl NEAR OR ABOVE OPTIMAL 130-159 mg/dl BORDERLINE HIGH 160-189 mg/dl HIGH >190 mg/dl VERY HIGH VLDL EGEMOKAMZVL21.2Chol HDL Ratio2.1 3.3 - 4.4 LOW RISK 4.4 - 7.1 AVERAGE RISK 7.1 - 11.0 MODERATE RISK >11.0 HIGH RISK Performing Lab:see noteML - [facility] LBIRON Reviewed date:06/28/2024 11:53:33 AM Interpretation: Performing Lab: Notes/Report: [facility] ,Iron19.050.0-170.0 ug/dLPerforming Lab:see note - [facility] LB GLYCOHEMOGLOBIN A1C Reviewed date:06/28/2024 11:53:33 AM Interpretation: Performing Lab: Notes/Report: [facility] ,Glycohemoglobin A1C6.04.5-6.2 % ADA RECOMMENDED LIMIT 4.0 - 6.0 ADA THERAPEUTIC TARGET < 7.0 ACTION SUGGESTED > 7.0 Estimated Average Ntzhzrz819Ucbnsxcgdr Lab:see noteML - [facility] LB FREE T3 Reviewed date:06/28/2024 11:53:33 AM Interpretation: Performing Lab: Notes/Report: [facility] ,Free T31.642.18-3.98 pg/mLPerforming Lab:see noteML - [facility] LB CBC AUTO DIFF Reviewed date:06/28/2024 11:53:33 AM Interpretation: Performing Lab: Notes/Report: [facility] ,White Blood Count12.74.0-11.0 10 3/uLRed Blood Count4.034.20-5.40 10 6/uL Rlnfzmzwmi79.812.0-16.0 g/eUOrtmymyfym69.836.0-48.0 %Mean Corpuscular Expinq56.8 81.0-99.0 fLMean Corpuscular Wkmtqchgjb21.326.7-34.0 pgMean Corpuscular HGB Conc 33.029.9-35.2 g/dLRed Cell Distribution Width12.811.0-15.0 %Platelet Fkjrj287 150-450 10 3/uLMean Platelet Jdkvzx04.09.5-13.5 fLNeutrophils Percent Auto72.8 43.0-75.0 %Lymphocytes Percent Auto16.120.5-60.0 %Monocytes Percent Auto9.31.7- 12.0 %Eosinophils Percent Auto1.20.9-7.0 %Basophils Percent Auto0.20.2-2.0 % Immature Granulocytes Pct Auto0.40.0-0.5 %Neutrophils Absolute Auto9.21.4-6.5 10 3/uLLymphocytes Absolute Auto2.01.2-3.8 10 3/uLMonocytes Absolute Auto1.20.3-0.8 10 3/uLEosinophils Absolute Auto0.20.0-0.7 10 3/uLBasophils Absolute Auto0.00.0- 0.1 10 3/uLImmature Granulocytes Abs Auto0.050.00-0.03 10 3/uLPerforming Lab:see noteML - [facility] LBIFE, PE and FLC, Serum Reviewed date:06/28/2024 11:53:33 AM Interpretation: Performing Lab: Notes/Report: [facility] ,Immunoglobulin G, Qn, Yaojp0793478-2909 mg/dLImmunoglobulin A, Qn, Jutva04900- 352 mg/dLImmunoglobulin M, Qn, Orwic19764-928 mg/dLProtein, Total7.06.0-8.5 g/dL Albumin3.52.9-4.4 g/bNCsqwj-3-Xmtswhey4.30.0-0.4 g/lSLcztg-4-Vdjhfsac4.90.4-1.0 g/dLBeta Globulin1.10.7-1.3 g/dLGamma Globulin1.20.4-1.8 g/dLM-SpikeComment:Not Observed g/dL Due to the small quantity of monoclonal protein, unable to quantitate the M-spike. Globulin, Total3.52.2-3.9 g/dLA/G Ratio1.10.7-1.7Immunofixation Result, Serum Comment. Immunofixation shows IgG monoclonal protein with lambda light chain specificity. Please note:Comment. Protein electrophoresis scan will follow via computer, mail, or molder sweep delivery. Free [place] Lt Chains,S61.63.3-19.4 mg/LFree Lambda Lt Chains,S52.55.7-26.3 mg/L [place]/Lambda Ratio,S1.170.26-1.65 Performed at: [facility] [address] [id number] Medical Technologist Chemistry: Lxe Munguia PhD, Phone: [phone] Performing Lab:see noteLC - [facility] LBPROF 14(COMP METB) Reviewed date:06/28/2024 11:53:34 AM Interpretation: Performing Lab: Notes/Report: [facility] ,Fnfhwl560129-796 mmol/LPotassium3.63.5-5.1 mmol/KXuocalzq20292-959 mmol/LCarbon Hrngnpa54.821.0-32.0 mmol/LAnion Gap12.9Wqsywom06181-171 mg/dLBlood Urea Vzsrjkmd32.07.0-18.0 mg/dLCreatinine1.520.55-1.02 mg/dLEstimated GFR ( Swvnonk31>=60 mL/min/1.73m 2Estimated GFR (Non- Ame34>=60 mL/min/1.73m 2 BUN Creatinine Ratio7.7Wvkwvfg6.98.5-10.1 mg/dLBilirubin Total0.30.2-1.0 mg/dL Aspartate Amino Nvsubkhsioo1907-43 U/LAlanine Onjxdaohkyyxiotq3305-78 U/L Alkaline Evoupbweedm05801-742 U/LTotal Protein7.56.4-8.2 g/dLAlbumin Level3.2 3.4-5.0 g/dLGlobulin4.3Albumin Globulin Ratio0.7Performing Lab:see noteML - [facility] LBCBC AUTO DIFF Reviewed date:06/28/2024 11:53:33 AM Interpretation: Performing Lab: Notes/Report: [facility] ,White Blood Count8.44.0-11.0 10 3/uLRed Blood Count4.134.20-5.40 10 6/uL Kyyrypstib56.312.0-16.0 g/dBGmppqsseku04.836.0-48.0 %Mean Corpuscular Yskals15.5 81.0-99.0 fLMean Corpuscular Vlothwaolh37.826.7-34.0 pgMean Corpuscular HGB Conc 32.529.9-35.2 g/dLRed Cell Distribution Width13.111.0-15.0 %Platelet Mytaf214 150-450 10 3/uLMean Platelet Ebvtbr33.39.5-13.5 fLNeutrophils Percent Auto71.1 43.0-75.0 %Lymphocytes Percent Auto20.420.5-60.0 %Monocytes Percent Auto6.31.7- 12.0 %Eosinophils Percent Auto1.30.9-7.0 %Basophils Percent Auto0.70.2-2.0 % Immature Granulocytes Pct Auto0.20.0-0.5 %Neutrophils Absolute Auto6.01.4-6.5 10 3/uLLymphocytes Absolute Auto1.71.2-3.8 10 3/uLMonocytes Absolute Auto0.50.3-0.8 10 3/uLEosinophils Absolute Auto0.10.0-0.7 10 3/uLBasophils Absolute Auto0.10.0- 0.1 10 3/uLImmature Granulocytes Abs Auto0.020.00-0.03 10 3/uLPerforming Lab:see noteML - [facility] LBPTH, Intact Reviewed date:02/05/2024 02:37:20 PM Interpretation: Performing Lab: Notes/Report: [facility] ,PTH, [id number] pg/mL Performed at: [facility] [address] [id number] Medical Technologist Chemistry: Lex Munguia PhD, Phone: [phone] Performing Lab:see noteLC - [facility] LBVITAMIN D 25 [place] Reviewed date:02/04/2024 02:16:42 PM Interpretation: Performing Lab: Notes/Report: [facility] ,Vitamin D41.1 <20 ng/mL Vit D deficient 20-<30 ng/mL Vit D insufficient 30-100 ng/mL Vit D sufficient >100 ng/mL Potential Toxicity Performing Lab:see noteML - [facility] LBURIC ACID SERUM Reviewed date:02/04/2024 02:16:42 PM Interpretation: Performing Lab: Notes/Report: [facility] ,Uric Acid6.92.6-6.0 mg/dLPerforming Lab:see noteML - [facility] LBUA RANDOM W or MICROSCOPIC Reviewed date:02/04/2024 02:16:42 PM Interpretation: Performing Lab: Notes/Report: [facility] ,Color UrineLT. YELLOWYELLOWClarity UrineCLEARCLEARSpecific Dexter Urine1.025 1.005-1.025pH Urine6.05.0-9.0Protein UrineTRACENEG/TRACE mg/dLGlucose Urine UA NEGATIVENEGATIVE mg/dLBilirubin UrineNEGATIVENEGATIVEKetones UrineNEGATIVE NEGATIVE mg/dLBlood UrineNEGATIVENEGATIVENitrite UrineNEGATIVENEGATIVE Urobilinogen Urine0.20.2-1.0 EU/dLLeukocyte Esterase UrineNEGATIVENEGATIVEWBC Urine0-2NONE SEEN #/HPFRBC Urine0-20-2 #/HPFBacteria UrineTRACENONE SEEN #/HPF Mucus UrineNONE SEENNONE SEENSquamous Epithelial Cell UrineRARENONE/RARE #/LPF Crystals Seen?None SeenNone Seen #/HPFCast Seen?NONE SEENNONE SEEN #/LPF Performing Lab:see noteML - [facility] LBRENAL FUNCTION PANEL Reviewed date:02/04/2024 02:16:42 PM Interpretation: Performing Lab: Notes/Report: [facility] ,Ydipwn211894-342 mmol/LPotassium4.13.5-5.1 mmol/QNhznncdi38451-441 mmol/LCarbon Nockonq24.021.0-32.0 mmol/LAnion Gap17.3Ntzwcgu27338-258 mg/dLBlood Urea Vfxtewvc33.07.0-18.0 mg/dLCreatinine1.750.55-1.02 mg/dLEstimated GFR ( Rvecjbw55>=60 mL/min/1.73m 2Estimated GFR (Non- Ame29>=60 mL/min/1.73m 2 BUN Creatinine Ratio14.2Bnxibma1.38.5-10.1 mg/dLPhosphorus3.82.6-4.7 mg/dL Albumin Level3.03.4-5.0 g/dLPerforming Lab:see noteML - [facility] LB MAGNESIUM Reviewed date:02/04/2024 02:16:42 PM Interpretation: Performing Lab: Notes/Report: [facility] ,Magnesium1.71.8-2.4 mg/dLPerforming Lab:see noteML - [facility] LB CBC AUTO DIFF (Not yet reviewed by provider) Interpretation: Performing Lab: Notes/Report: [facility] ,White Blood Count8.44.0-11.0 10 3/uLRed Blood Count4.294.20-5.40 10 6/uL Uaeaiygkvy55.312.0-16.0 g/zHHmqkpcegek54.636.0-48.0 %Mean Corpuscular Anqtdf23.0 81.0-99.0 fLMean Corpuscular Stzwvnfrsi24.026.7-34.0 pgMean Corpuscular HGB Conc 34.529.9-35.2 g/dLRed Cell Distribution Width13.111.0-15.0 %Platelet Nzgyb488 150-450 10 3/uLMean Platelet Wibvsf00.69.5-13.5 fLNeutrophils Percent Auto69.3 43.0-75.0 %Lymphocytes Percent Auto21.420.5-60.0 %Monocytes Percent Auto6.51.7- 12.0 %Eosinophils Percent Auto1.90.9-7.0 %Basophils Percent Auto0.70.2-2.0 % Immature Granulocytes Pct Auto0.20.0-0.5 %Neutrophils Absolute Auto5.81.4-6.5 10 3/uLLymphocytes Absolute Auto1.81.2-3.8 10 3/uLMonocytes Absolute Auto0.60.3-0.8 10 3/uLEosinophils Absolute Auto0.20.0-0.7 10 3/uLBasophils Absolute Auto0.10.0- 0.1 10 3/uLImmature Granulocytes Abs Auto0.020.00-0.03 10 3/uLPerforming Lab:see noteML - [facility] LB Reason For Referral No Information Medications Medication SIG (Take, Route, Frequency, Duration) Notes Start Date End Date Status Pantoprazole Sodium 40 mg TAKE 1 TABLET BY MOUTH ONCE DAILY; Duration: ActivepredniSONE 20 MG2 tablets Orally Once a day; Duration: 5 06/20/2024 ActiveCytomel 5 MCG1 tablet on an empty stomach Orally Once a day; Duration: 30 5ActiveLisinopril 20 MG1 tablet Orally Once a day; Duration: 30 days5ActiveCitalopram Hydrobromide 40 mgTAKE 1 TABLET BY MOUTH ONCE DAILY; Duration: 30ActiveCoreg 25 MG1 tablet with food Orally Twice a day; Duration: 30 daysActiveAspirin 81 81 MG1 tablet Orally Once a dayActiveBreztri Aerosphere 160/9/4.8 mcgas directed inhalation 2 puffs BID; Duration: 30 days 5ActiveVitamin D (Ergocalciferol) 1.25 MG (39949 UT)1 capsule Orally once weeklyActivepredniSONE 20 MG2 tablets Orally Once a day; Duration: 5 days 5ActiveSynthroid 150 MCG1 tablet in the morning on an empty stomach Orally Once a day; Duration: 30 daysActiveAzithromycin 250 MG2 tabs today then 1 tab Orally daily; Duration: 5 days5Active Immunizations Vaccine Route Administration Date Status Comme nts Flu, (85291) -historic- Whole Unknown 02/11/2015 Admini stered Flu, Flucelvax (2992-3839) (41461) 6 mos and older, single-dose syringeIM Gcuxckvoropfi49/07/2023AdministeredFlu, Flucelvax (43452) 2 yrs+, single-dose syringe (3000-7428)Yjmuyin3301/13/2020AdministeredFlu, Flucelvax (47428) 2 yrs+, single-dose syringe (2774-4306)Iclmjra54/20/9229KjecsebhqzneAVQQ-ANO-0 (COVID 19 Moderna - Booster 0.25mL)Dwagutm19/13/0052LmzoblgjntgpBCUC-YOK-7 (COVID 19 Moderna - Booster 0.25mL)Kcxzfjp49/10/7536HjkgbcwzazwfMBJJ-ZPF-1 (COVID 19 Moderna - Booster 0.25mL)Zshnjll55/27/2021Administered Social History Tobacco Use: Social History Observation Description Date Details (start date - stop date) Former Smoker 03/12/1974 - 07/14/2022 Tobacco Use/Smoking Question Answer Notes Patient is a former smoker When did you start smoking?03/12/1974When did you stop smoking?07/14/2022How long has it been since you last smoked?< 1 monthAlcohol Screen (Audit-C) Question Answer Notes Did you have a drink containing alcohol in the p ast year? No Doshqe6JjogkogbffzsisTdpgumpbYPDWN-R (Standard) Question Answer Notes Did you have a drink containing alcohol in the p ast year? 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 (I25.10) ActiveconfirmedProblemChronic ischemic heart disease (818408926)Chronic ischemic heart disease, unspecified (I25.9)ActiveconfirmedProblemAcute frontal sinusitis (68414206)Acute recurrent frontal sinusitis (J01.11)ActiveconfirmedProblem Lumbosacral spondylosis without myelopathy (11296794)Other spondylosis, lumbar region (M47.896)ActiveconfirmedProblemFibromyalgia (170762263)Fibromyalgia (M79.7)ActiveconfirmedProblemAcute renal failure syndrome (33315701)Acute kidney failure, unspecified (N17.9)ActiveconfirmedProblemAcute cystitis (86970210)Acute cystitis with hematuria (N30.01)ActiveconfirmedProblemChest pain (27000217)Chest pain (R07.9)ActiveconfirmedProblemHyperlipidemia (14723661)Hyperlipidemia (E78.5)ActiveconfirmedProblemChronic obstructive pulmonary disease (82640273) Chronic obstructive pulmonary disease (J44.9)ActiveconfirmedProblemHypertension (60875643)Hypertension (I10)ActiveconfirmedProblemOsteoarthritis (538361538) Osteoarthritis (M19.90)ActiveconfirmedProblemAngina pectoris (359462727)Angina pectoris (I20.9)ActiveconfirmedProblemCigarette smoker (07381262)Cigarette smoker (F17.210)ActiveconfirmedProblemAsthma (939843451)Asthma (J45.909)Active confirmedProblemMitral valve disorder (90447472)Moderate mitral regurgitation (I34.0)ActiveconfirmedProblemHypothyroidism (28565687)Hypothyroidism (E03.9) ActiveconfirmedProblemNeck pain (21636942)Neck pain (M54.2)Activeconfirmed ProblemOsteopenia (788599185)Osteopenia (M85.80)ActiveconfirmedProblemInsomnia (257414939)Insomnia (G47.00)ActiveconfirmedProblemEczema (60510520)Eczema (L30.9)ActiveconfirmedProblemChronic fatigue syndrome (79204093)Chronic fatigue (R53.82)ActiveconfirmedProblemLumbar radiculopathy (202891765)Lumbar radiculopathy (M54.16)ActiveconfirmedProblemAcute sinusitis (74192696)Acute sinusitis (J01.90)ActiveconfirmedProblemDisplacement of lumbar intervertebral disc without myelopathy (88054632)Lumbar herniated disc (M51.26)Activeconfirmed ProblemWell adult (838648140)Well adult (Z00.00)ActiveconfirmedProblemAcquired hypothyroidism (413180726)Acquired hypothyroidism (E03.9)ActiveconfirmedProblem Irritable bowel syndrome (15323547)Irritable bowel syndrome (K58.9)Active confirmedProblemDegenerative disc disease (97952822)DDD (degenerative disc disease), lumbar (M51.36)ActiveconfirmedProblemMultiple sclerosis (19546874) Multiple sclerosis (G35)ActiveconfirmedProblemImpingement syndrome of shoulder region (476761737)Shoulder impingement (M75.40)ActiveconfirmedProblemAcute systolic heart failure (942378668)Acute systolic heart failure (I50.21)Active confirmedProblemOverweight (964550842)Over weight (E66.3)ActiveconfirmedProblem Seasonal allergic rhinitis (122162268)Allergic rhinitis, seasonal (J30.2)Active confirmedProblemThoracic outlet syndrome (613949523)Thoracic outlet syndrome (G54.0)ActiveconfirmedProblemLeft lower quadrant pain (609738994)Abdominal pain, LLQ (R10.32)ActiveconfirmedProblemDiverticular disease of colon (375727769) Colon, diverticulosis (K57.30)ActiveconfirmedProblemFibrocystic breast changes (53562465)Fibrocystic breast disease (N60.19)ActiveconfirmedProblemTrigger finger of right hand (31505658471129637)Trigger finger of right hand (M65.30) ActiveconfirmedProblemRecurrent major depression (95870508)Depression, major, recurrent, in remission (F33.40)ActiveconfirmedProblemDiabetic peripheral neuropathy associated with type 2 diabetes mellitus (7748932806539)Type 2 diabetes, controlled, 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)ActiveconfirmedProblem Raynaud's disease (991162435)Raynaud's disease (I73.00)ActiveconfirmedProblem Peripheral vertigo (33875787)Vertigo, peripheral (H81.399)ActiveconfirmedProblem Bruising (641309708)Bruising (T14.8XXA)ActiveconfirmedProblemChronic kidney disease stage 3B (disorder) (424298244)Chronic kidney disease, stage 3b (N18.32) ActiveconfirmedProblemCough (finding) (22371078)Other cough (R05.8)Active confirmed Vital Signs Temperature 97.4 degrees Fahrenheit 12/23/2024 Ubwdiqbe61 %06/20/2024lood pressure mm Hg12/23/20245495Gvofuo34 in 12/23/2024lood pressure mldydbpu971 mm Hg12/23/20241163Wxkuso586.6 lbs1MI 27.18 kg/m212/23/2024 Encounters Encounter Location Date Provider Diagnosis [facility] [address] [place] [address] 08/14/2024 Zaire Hoy Acute bronchitis, unspecified organism J20.[address] [place] [address] 02/13/2024 Zaire Hoy Acute non-recurrent sinusitis, unspecified location J01.90 and Nasal congestion R09.81 [facility] [address] [place] [address] 06/20/2024 Zaire Hoy Chronic obstructive pulmonary disease J44.9 and Acute bronchitis, unspecified organism J20.9 [facility] [address] [place] [address] 12/23/2024 Zaire Hoy Body aches R52 ; Chronic kidney disease, stage 3b N18.32 and Acute bronchitis, unspecified organism J20.9 [facility] [address] [place] [address] 08/27/2024 Romi Armijo [facility] [address] [place] [address]/ [facility] [address] [place] [address]/[facility] [address] [place] [address]/[facility] [address] [place] [address]/[facility] [place] [place] [address]/Doug Hoy Acute kidney failure, unspecified N17.9[facility] [place] [address]/[facility] [place] [address]/[facility] [place] [address]/08/2024 Zaire HoyAcute bronchitis, unspecified organism J20.9[facility] [place] [address]/11/2024Doug Hoy Hypothyroidism [address] [place] [address] [place] [address]/12/2024Doug HoyChronic obstructive pulmonary disease J44.9 and Hypothyroidism E03.9[facility] [place] [address]/09/2024Doug HoyAcute bronchitis, unspecified organism J20.9 and Acquired hypothyroidism [address] [place] [address] [address] [place] [address]/Doug HoyHypertension I10 Assessments Encounter Date Diagnosis (ICD Code) Assessment Notes Treatment Notes Treatment Clinical Notes Section Notes 06/28/2024 Acute kidney failure, unspecifie d (ICD-10 - N17.9) 06/06/2025Acute bronchitis, unspecified organism (ICD-10 - J20.9)11/18/2024 Hypothyroidism (ICD-10 - E03.9)11/19/2024hronic obstructive pulmonary disease (ICD-10 - J44.9)07/07/2024Hypertension (ICD-10 - I10)5Acute bronchitis, unspecified organism (ICD-10 - J20.9)Rest and drink more liquids, especially water. You may use a humidifier or vaporizer to help keep the drainage moist. Sfka-rno-aakvidl Nasal Saline may help the stuffy and runny nose. Use Ibuprofen and or Tylenol as needed for fever, chills, body aches or pain. Children 5 years old should not be given zhig-fps-yzqhgnb cough and cold medications such as guaifenesin and dextromethorphan. If you're over age 5, you may try xqdd-wbm-pbsstwm cold medications such as guaifenesin and dextromethorphan, or multi-symptom cold reliever such as Dayquil to help reduce the symptoms. Antibiotics have been prescribed. You should take these until completed and follow the directions. Antibiotics can sometimescause upset stomach, and in rare cases, serious [...] chest pain you should [facility] to [facility] room or call [phone] aches (ICD-10 - R52)5Chronic kidney disease, stage 3b (ICD-10 - N18.32)5Acute bronchitis, unspecified organism (ICD-10 - J20.9)4Acute non-recurrent sinusitis, unspecified location (ICD-10 - J01.90)Rest and drink more liquids, especially water. You may use a humidifier or vaporizer to help keep the drainage moist. Rnyn-bht-vuyofxg Nasal Saline may help the stuffy and runny nose. Use Ibuprofen and or Tylenol as needed for fever, chills, body aches or pain. Children 5 years old should not be given xxig-zwh-bajaoeu cough and cold medications such as guaifenesin and dextromethorphan. If you're over age 5, you may try rhng-icd-hzizazg cold medications such as guaifenesin and dextromethorphan, or multi-symptom cold reliever such as Dayquil to help reduce the symptoms. Antibiotics have been prescribed. You should take these until completed and follow the directions. Antibiotics can sometimescause upset stomach, and in rare cases, serious allergic reactions or serious gastrointestinal problems. If you start having severe abdominal pain, severe vomiting, or bloody diarrhea, you should be reevaluated by your physician or urgent care immediately. Follow up with your Primary Care Provider or return to clinic if symptoms do not improve within 3-5 days5Chronic obstructive pulmonary disease (ICD-10 - J44.9) 5Acute bronchitis, unspecified organism (ICD-10 - J20.9)Rest and drink more liquids, especially water. You may use a humidifier or vaporizer to help keep the drainage moist. Gjqf-ral-knsbkhw Nasal Saline may help the stuffy and runny nose. Use Ibuprofen and or Tylenol as needed for fever, chills, body aches or pain. Children 5 years old should not be given yifu-sbk-olqxtnv cough and cold medications such as guaifenesin and dextromethorphan. If you're over age 5, you may try glht-yia-pqqzadv cold medications such as guaifenesin and dextromethorphan, or multi-symptom cold reliever such as Dayquil to help reduce the symptoms. Antibiotics have been prescribed. You should take these until completed and follow the directions. Antibiotics can sometimescause upset stomach, and in rare cases, serious [...] go to the emergency room or call [phone] congestion (ICD-10 - R09.81)5Acquired hypothyroidism (ICD-10 - E03.9) 11/19/2024Hypothyroidism (ICD-10 - E03.9)5Acute bronchitis, unspecified organism (ICD-10 - J20.9)Rest and drink more liquids, especially water. You may use a humidifier or vaporizer to help keep the drainage moist. Bney-ddu-btbelan Nasal Saline may help the stuffy and runny nose. Use Ibuprofen and or Tylenol as needed for fever, chills, body aches or pain. Children 5 years old should not be given pmkk-rci-qxveqdm cough and cold medications such as guaifenesin and dextromethorphan. If you're over age 5, you may try lsrs-str-edtmvma cold medications such as guaifenesin and dextromethorphan, or multi-symptom cold reliever such as Dayquil to help reduce the symptoms. Antibiotics have been pre scribed. You should take these until completed and follow the directions. Antibiotics can sometimescause upset stomach, and in rare cases, serious allergic reactions or serious gastrointestinal problems. If you start having severe abdominal pain, severe vomiting, or bloody diarrhea, you should be r eevaluated by your physician or urgent care immediately. Follow up with your Primary Care Provider or return to clinic if symptoms do not improve within 3-5 days. If you develop severe symptoms such as shortness of breath, repeated vomiting, coughing up blood, or chest pain you should go to the emergency room or call 911 Plan Of Treatment Pending Test Test Name Order Date Exercise Stress Nuclear Test 08/03/2022 HEMOGLOBIN A1C (GLYCO) 06/20/2024 IRON, TOTAL 06/20/2024 LIPID PANEL (CHOL/TRIG/HDL/LDL) 06/21/19 US Renal 05/01/2023 COMPREHENSIVE METABOLIC PROFILE WITH GFR 05/01/2023 CT Chest Low Dose for Screening* 023 STOOL OCCULT BLOOD 06/20/2024 COVID-19, Flu A+B IH 12/23/2024 CBC AUTO DIFF 09/27/2024 CBC AUTO DIFF 11/11/2024 CRP 11/11/2024 FERRITIN 11/11/2024 GLYCOHEMOGLOBIN A1C 06/27/2022 IRON AND TIBC 11/11/2024 IRON AND TIBC 09/27/2024 PROF CHEM 8 (BAS METB) 05/08/2023 PROF CHEM 8 (BAS METB) 05/19/2023 PROF CHEM 8 (BAS METB) 04/23/2023 PROF CHEM 8 (BAS METB) 11/11/2024 THYROID ANTIBODIES 12/16/2024 VITAMIN D 25 OH 06/27/2022 US KIDNEYS 06/28/2024 US KIDNEYS BLADDER 05/19/2023 THYROID PANEL (T4/TSH/FREE T3) 5 THYROID PANEL (T4/TSH/FREE T3) 5 THYROID PANEL (T4/TSH/FREE T3) 5 THYROID PANEL (T4/TSH/FREE T3) 5 THYROID PANEL (T4/TSH/FREE T3) 3 Erythrocyte Sedimentation Rate 5 SINGH, PE and FLC, Serum 11/11/2024 Vitamin B12 11/11/2024 CMP (COMP MET ZHAO) w/eGFR CKD-EPI 2024 CBC WITH DIFF 06/20/2024 Next Appt Details Provider Name:ROMI ARMIJO , 02/17/2025 10:30:00 AM, [address] [place], [address], Insurance Providers Payer Name Payer Address Payer Phone Subscriber Number Group Number Insured Name Patient Relationship to Insured Coverage Start Date Coverage End Date [employer] MEDICARE [address] [address] [place], [place] [id number] [phone] [id number] Myriam Pantoja Self - patient is the insured [...] bowel syndrome K58.9 Surgical History Surgery Date(Month/Year) back surgeyr left knee surgeryfull hysterectomyoutlet proceduregallbladderappendix Hospitalization History Reason Date(Month/Year) see above
--- OUTSIDE RECORDS SUMMARY | 2025-01-15 09:13 | XMS_ITS | Clinical Summary ---
Author Organization [email or web address] tem Address [id number] [place] [address] Care Team Providers Care Contract Sheltered Workshop Supervisor Name Role Phone Jonatan Teague MD Primary Care Provider [phone] Allergies Active AllergyReactionsCriticalityNoted DateCommentsPenicillin SSxuge6506/04/2018 Medications MedicationSigDispense QuantityRefillsLast FilledStart DateEnd DateStatus citalopram (CeleXA) 20 mg tablet Take 20 mg by mouth daily.Active lisinopril (PRINIVIL,ZESTRIL) 10 mg tablet Take 10 mg by mouth daily.Active levothyroxine (SYNTHROID, LEVOTHROID) 100 MCG tablet Take 100 mcg by mouth daily.Active aspirin 81 mg Take 81 mg by mouth daily.Active simvastatin (ZOCOR) 20 mg tablet Take 20 mg by mouth nightly.Active carvedilol (COREG) 12.5 mg tablet Take 12.5 mg by mouth 2 (two) times a day with meals.Active albuterol (PROAIR HFA) 90 mcg/actuation inhaler Inhale 1 puff as needed.Active Active Problems No known active problems Family History Medical HistoryRelationNameCommentsCancerFatherStrokeFatherDiabetesMotherHeart diseaseMotherHypertensionMotherRelationNameStatusCommentsFatherDeceasedMother Social History Tobacco UseTypesPacks/DayYears UsedDateSmoking Tobacco: Every DayCigarettes Smokeless Tobacco: NeverAlcohol UseStandard Drinks/WeekCommentsNo0 (1 standard drink = 0.6 oz pure alcohol)AUDIT-CAnswerDate RecordedFrequency of Alcohol LltdkwhhpgrZpgat66/26/2019Average Number of DrinksNot on file06/04/2018Frequency of Binge DrinkingNot on file06/04/2018ChildcareAnswerDate RecordedChildcare Xilwysf6308/21/2018EmploymentAnswerDate SlyiqvnvXqrqthdbqbKuvnhjk55/12/2019Purpose - LifeAnswerDate RecordedPurpose and direction in igbpHzldicc97/11/2021 CommentsNoSex and Gender InformationValueDate RecordedSex Assigned at BirthNot on fileLegal JfwZgwtzr22/06/2015 11:32 AM EDTGender IdentityNot on fileSexual OrientationNot on file Last Filed Vital Signs Vital SignReadingTime TakenCommentsBlood Yqgdzklh94/4602/20/2019 3:14 AM EST Qptcy142902/20/2019 3:29 AM NCRWlopjlcdcjc79.3 ??C (97.4 ??F)02/19/2019 10:30 PM ESTRespiratory Anlh311004/23/2018 3:29 AM ESTOxygen Zbtmesvxgm71%02/20/2019 3:29 AM ESTInhaled Oxygen Concentration--Nddbrf62 kg (150 lb)02/19/2019 10:30 PM EST Zehlaf593.5 cm (5' 2 )02/19/2019 10:30 PM ESTBody Mass Index27.44104/22/2018 10:30 PM EST Plan of Treatment Health MaintenanceDue DateLast DoneCommentsDepression Czsvyzhan88/27/1971Tobacco Vkwffmwom54/27/1971Adult BMI Hxhfrtbvh95/27/1977DTaP,Tdap and Td Vaccines (1 - Tdap)1977Zoster (Shingles) Vaccine (1 of 2)2008Fall Risk Screening 2023Influenza Eijmara8011/10/2024RSV ( or age 60+ yrs) (1 - 1-dose 75+ series)2033 Medical Devices ImplantedTypeAreaManufacturerDevice IdentifierShelf Expiration DateModel / Serial / LotLens Iol Ultrasert 20.5d - [id number] - [id number] Implanted:Qty[facility] 1 [facility]06[facility] [id number] 20.5 / [id number] / N/ALens Iol Ultrasert 20.5d - [id number] 20.5 - [id number] Implanted:Qty: 1 on 06/20/2018 [facility] [id number] 20.5 / [id number] 20.5 / [id number] Insurance Care Teams Team MemberRelationshipSpecialtyStart DateEnd Date Jonatan Teague MD PCP - GeneralFamily Medicine06/04/18
--- OUTSIDE RECORDS SUMMARY | 2025-01-15 09:14 | XMS_ITS | Encounter Summary ---
Author Organization [facility] Address [address] [place] [address] Care Team Providers Care Machine Or Machinery Mechanic Name Role Phone Jonatan Teague MD Primary Care Provider [phone] Reason for Visit * ReasonOnset DateCommentsMed Fekoab6101/14/2025 Encounter Details DateTypeDepartmentCare Team (Latest Contact Info)Hscycyctkqu50/05/2025Refill [facility] [address] [place] [address] Merry Layne MA Coronary arteriosclerosis in [place] artery; Mixed hyperlipidemia; Essential hypertension Social History Tobacco UseTypesPacks/DayYears UsedDateSmoking Tobacco: Every DayCigarettes Smokeless Tobacco: NeverAlcohol UseStandard Drinks/WeekCommentsNot Currently0 (1 standard drink = 0.6 oz pure alcohol)UT Safety & EnvironmentAnswerDate Recorded Fear of Current or Ex-PartnerNot on file05/03/2023Emotionally AbusedNot on file 05/03/2023hysically AbusedNot on file05/03/2023Sexually AbusedNot on file 4Physically or Sexually AbusedNot on file05/03/2023Comments UnknownSex and Gender InformationValueDate RecordedSex Assigned at BirthFemale 11/12/2024 11:20 AM EDTLegal YxzNjiuhx49/29/2022 9:14 PM EDTGender Identity Bknllk9611/12/2024 11:20 AM EDTSexual OrientationHeterosexual or Straight 11/12/2024 11:20 AM EDTdocumented as of this encounter Plan of Treatment DateTypeDepartmentCare Team (Latest Contact Info)Qqnwarnmhjd44/09/2025 10:20 AM ESTOffice Visit [facility] [address] [place] [address] Sophia Domingo, MEDICAL FACILITIES SECTION DIRECTOR [address] [place] [address] documented as of this encounter Visit Diagnoses Diagnosis Coronary arteriosclerosis in [place] artery Mixed hyperlipidemia Essential hypertension Unspecified essential hypertension documented in this encounter Care Teams Team MemberRelationshipSpecialtyStart DateEnd Jonatan Teague MD [address] [facility] [address] [address] PCP - General03/20/22documented as of this encounter
--- OUTSIDE RECORDS SUMMARY | 2025-01-15 09:14 | XMS_ITS | CCD ---
Author Organization [facility] CliniSyil Care Team Providers Care Driller And Reamer Name Role Phone PHYSICIAN, DEFAULT Unavailable Unavailable [...] Unavailable HOY ., DR BHAKTA Consulting Unavailable ORGAN, DR MICHAEL Turcios Consulting Unavailable HOY ., DR BHAKTA Admitting Unavailable HOY ., DR BHAKTA Attending Unavailable HOY ., DR BHAKTA Primary Care Unavailable HOY ., DR BHAKTA Consulting Unavailable ZIEBER, DR ALEX Palma Consulting Unavailable Yony Teague MD Primary Care Provider [phone] Kerwin Andrade MD Attending Provider IVAN MATA Attending Unavailable ELTAHAWY, LAURIE Attending Unavailable Allergies Allergy ClassificationReported Allergen(s)Allergy TypeDate of OnsetReaction(s) FacilityAcetaminophen (1 source)AcetaminophenDrug Kcbslmc36-73-4948JgfexuvlMvnoifcjcUK HealthcareOpioid Agonists (1 source)PropoxypheneDrug Hmsufpw31-76-2126GwifrslhRqknsktnoMedina HospitalPenicillins (antibiotic) (1 source)PenicillinsDrug Lqedanl07-36-3837KncqpXbgmvwahcHighland District Hospital (1 source)acetaminophen / propoxyphene; Translations: [Darvocet]Drug Allergy 81-06-4812Nab [facility] (5 sources)Penicillins; Translations: [PENICILLINS]Drug allergy (disorder) 00-02-3952ORP, HivesThe [facility] (1 source)Darvocet-N 100Drug allergy (disorder)34-78-2373ImmUniversity [facility] (2 sources)AcetaminophenDrug Dsbxqrv73-79-5873OwldxlurXyidyfnsbUK Healthcare (2 sources)PropoxypheneDrug Gdntbba12-14-7177LesuhyjaPmgtxnjcaUK Healthcare (1 source)PROPOXYPHENE N-ACETAMINOPHEN; Translations: [PROPOXYPHENE N-ACETAMINOPHEN]Propensity to adverse reactions to drug (disorder)02-27-2014 [facility] Medications Current Medications MedicationDrug Class(es)DatesSig (Normalized)Sig (Original)aspirin 81 mg delayed release oral tablet (3 sources)Platelet Aggregation Inhibitor, Nonsteroidal Anti-inflammatory Drug Start: 73-25-5125ddir 1 tablet by mouth once dailyAspirin 81 mg tablet,delayed release (DR/EC) Active 81 MG PO Daily August 30, 2023 12:00am Complieswith drug therapycarvedilol 25 mg oral tablet (3 sources)alpha-Adrenergic Carla, beta-Adrenergic BlockerStart: 08-30-2023 take 1 tablet by mouth twice dailyCarvedilol 25 mg tablet Active 25 MG PO Twice daily August 30, 2023 12:00am Complies with drug therapychlorthalidone 25 mg oral tablet (3 sources)Thiazide-like DiureticStart: 93-48-3869gsel 1 tablet by mouth once dailyChlorthalidone 25 mg tablet Active 25 MG PO Daily August 30, 2023 12:00am Complies with drug therapycitalopram 40 mg oral tablet (4 sources)Serotonin Reuptake InhibitorStart: 25-85-6290Nixqgwyqxo 40 mg tablet Active 40 MG PO February 14, 2024 1:00am Complies with drug therapyStart: 08-30-2023 End: 85-42-3770dclk 1 tablet by mouth once dailyCitalopram 20 mg tablet Discontinued 20 MG PO Daily August 30, 2023 12:00am February 14, 2024 1:05pm ergocalciferol 1.25 mg oral capsule (3 sources)Provitamin D2 CompoundStart: 61-06-9637xbtb 1 capsule by mouth every weekErgocalciferol (Vitamin D2) 1,250 mcg (50,000 unit) capsule Active 0 .ROUTE .COMPLEX February 12, 2024 3:39pm TAKE 1 CAPSULE BY MOUTH EVERY WEEK Complies with drug therapyStart: 10-04-2023 End: 38-07-5202vmgi 1 capsule by mouth every weekErgocalciferol (Vitamin D2) 1,250 mcg (50,000 unit) capsule Discontinued 1250 MCG PO every week October 04, 2023 12:00am February 12, 2024 3:39pmezetimibe 10 mg oral tablet (3 sources)Dietary Cholesterol Absorption InhibitorStart: 74-63-0192twob 1 tablet by mouth once dailyEzetimibe 10 mg tablet Active 10 MG PO Daily August 30, 2023 12:00am Complies with drug yduxuxe22 hr isosorbide mononitrate 30 mg extended release oral tablet (3 sources)Nitrate VasodilatorStart: 02-14-4875xqku 1 tablet by mouth once daily, then take 1 tablet by mouth every twenty-four hoursIsosorbide Mononitrate 30 mg tablet extended release 24 hr Active 30 MG PO Daily August 30, 2023 12: 00am Complies with drug therapylevothyroxine sodium 0.175 mg oral tablet (3 sources)l-ThyroxineStart: 94-71-3244ffsu 1 tablet by mouth once daily Levothyroxine 175 mcg tablet Active 175 MCG PO Daily August 30, 2023 12:00am Complies with drug therapypantoprazole 40 mg delayed release oral tablet (2 sources)Proton Pump InhibitorStart: 28-71-2975vgrh 1 tablet by mouth once Pantoprazole 40 mg tablet,delayed release (DR/EC) Active 40 MG PO Once September 11, 2024 10:31am Complies with drug therapyStart: 02-14-2024 End: 16-54-3774Xdsuatoptjcu 40 mg tablet,delayed release (DR/EC) Discontinued MG PO February 14, 2024 1:00am 2024 10:32amsimvastatin 20 mg oral tablet (4 sources)HMG-CoA Reductase InhibitorStart: 05-51-3432tnvv 1 tablet by mouth once dailySimvastatin 20 mg tablet Active 20 MG PO Daily February 14, 2024 1:00am Complies with drug therapyStart: 08-30-2023 End: 24-07-9154hplb 1 tablet by mouth once dailySimvastatin 40 mg tablet Discontinued 40 MG PO Daily August 30, 2023 12:00am February 14, 2024 1:06pm spironolactone 25 mg oral tablet (3 sources)Aldosterone AntagonistStart: 56-89-6362zjfr 1 tablet by mouth once dailySpironolactone 25 mg tablet Active 25 MG PO Daily August 30, 2023 12:00am Complies with drug therapy Completed/Discontinued Medications MedicationDrug Class(es)DatesSig (Normalized)Sig (Original)cefdinir 300 mg oral capsule (1 source)Cephalosporin AntibacterialStart: 02-14-2024 End: 77-24-8861kiik 2 capsules by mouth once dailyCefdinir 300 mg capsule Discontinued 600 MG PO Daily February 14, 2024 1:00am September 11, 2024 10:30am diclofenac sodium 75 mg delayed release oral tablet (3 sources)Nonsteroidal Anti-inflammatory DrugStart: 08-30-2023 End: 75-05-0849jeqg 1 tablet by mouth twice dailyDiclofenac Sodium 75 mg tablet,delayed release (DR/EC) Discontinued 75 MG PO Twice daily August 12:00am October 04, 2023 11:12amlisinopril 20 mg oral tablet (3 sources)Angiotensin Converting Enzyme InhibitorStart: 08-30-2023 End: 06-57-3442kyyt 1 tablet by mouth once dailyLisinopril 20 mg tablet Discontinued 20 MG PO Daily August 30, 2023 12:00am August 30, 2023 3:59pm magnesium oxide 400 mg oral tablet (3 sources)Start: 10-04-2023 End: 48-62-7937wyjv 1 tablet by mouth once dailyMagnesium Oxide 400 mg (241.3 mg magnesium) tablet Discontinued 400 MG PO Daily 90 February 14, 2024 1:00am September 11, 2024 10:31am Problems Active Problems Problem ClassificationProblemDateDocumented DateEpisodic/ChronicChronic kidney disease (7 sources)Chronic kidney disease stage 3; Translations: [Stage 3 chronic kidney disease]73-72-7959FrlgmuuTcskyhp kidney disease (2 sources)Chronic kidney disease; Translations: [Chronic kidney disease, stage 3b]Onset: 31-93-6817Ydeanmo obstructive pulmonary disease and bronchiectasis (1 source)Chronic obstructive pulmonary disease, unspecified; Translations: [COPD UNSPECIFIED]Onset: 76-73-3704DbbvzihLmhtzxmf atherosclerosis and other heart disease (9 sources)Coronary arteriosclerosis; Translations: [Atherosclerotic heart disease of council coronary artery without angina pectoris]Onset: 03-20-2022 57-20-7735MqyjbjrZcmnthak atherosclerosis and other heart disease (1 source)Presence of coronary angioplasty implant and graft; Translations: [PRESENCE COR ANGPLSTY IMPLANT AND GRAFT]Onset: 37-31-7406VsiinorjFfegoaga mellitus with complications (1 source)Type 2 diabetes mellitus with diabetic neuropathy, unspecified; Translations: [TYPE 2 DM W/DIABETICNEUROPATHY UNS]Onset: 14-00-5999Cwhxdpb Diabetes mellitus without complication (1 source)Type 2 diabetes mellitus without complications; Translations: [TYPE 2 DM WITHOUT COMPLICATIONS]Onset: 91-05-6937MedjnigFaftmrosc of lipid metabolism (9 sources)Hyperlipidemia; Translations: [Hyperlipidemia, unspecified]Onset: 170105-82-0482DyzeifkBhqouknkb hypertension (6 sources)Essential (primary) hypertension; Translations: [ESSENTIAL PRIMARY HYPERTENSION]Onset: 53-56-9021UeunwreTpdji valve disorders (2 sources)Nonrheumatic mitral (valve) insufficiency; Translations: [Nonrheumatic mitral (valve) insufficiency]Onset: 13-72-1103QipwpsqEboovmrlahcl with complications and secondary hypertension (7 sources)Chronic kidney disease due to hypertension; Translations: [Hypertensive chronic kidney disease withstage 1 through stage 4 chronic kidney disease, or unspecified chronic kidney disease]77-54-4014EcqclqbDjicmks and fatigue (1 source)Chronic fatigue, unspecified; Translations: [CHRONIC FATIGUE UNSPECIFIED]Onset: 16-15-5000ZwhqnktRalbqfctbu disorders (1 source)Hormone replacement therapy; Translations: [HORMONE REPLACEMENT THERAPY]Onset: 50-56-9681MoeasutcCdgsoxgm sclerosis (5 sources)Multiple sclerosis; Translations: [MULTIPLE SCLEROSIS]Onset: 44-02-3323DxrolqvJesakvzte of unspecified nature or uncertain behavior (4 sources)Monoclonal gammopathy of uncertain significance; Translations: [Monoclonal gammopathy]26-75-8059MupftduJoasi aftercare (1 source)penitentiary (current) use of aspirin; Translations: [CUSTODIAL CURRENT USE OF ASPIRIN]Onset: 79-20-7922GmzzejqlKcuod aftercare (1 source)Other terminologist (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; Translations: [OTH CUSTODIAL CURRENT DRUG THERAPY]Onset: 96-07-3284OasxihnvBgtmg diseases of kidney and ureters (4 sources)Secondary hyperparathyroidism; Translations: [Secondary hyperparathyroidism of renal origin]80-10-1013NbhdkgmCewal diseases of kidney and ureters (3 sources)Secondary hyperparathyroidism of renal origin; Translations: [Secondary hyperparathyroidism (of renal origin)]87-94-8100RbyivauUlnjd nutritional; endocrine; and metabolic disorders (1 source)Obesity, unspecified; Translations: [OBESITY UNSPECIFIED]Onset: 29-17-4072LmuaqukOftzl nutritional; endocrine; and metabolic disorders (3 sources)Hypomagnesemia; Translations: [Hypomagnesemia]47-01-2605SqzfjupJwkit nutritional; endocrine; and metabolic disorders (1 source)Hypomagnesemia; Translations: [Disorders of magnesium metabolism] 14-07-0172EauppbsCamip nutritional; endocrine; and metabolic disorders (1 source)Body mass index (BMI) 25.0-25.9, adult; Translations: [BODY MASS INDEX BMI 25.0-25.9 ADULT]Onset: 67-87-9992KcuvvheyXabby nutritional; endocrine; and metabolic disorders (3 sources)Hyperuricemia; Translations: [Hyperuricemia without signs of inflammatory arthritis and tophaceous disease]30-41-6114RhcndytzXfmuq nutritional; endocrine; and metabolic disorders (1 source)Hyperuricemia without signs of inflammatory arthritis and tophaceous disease; Translations: [Other abnormal blood chemistry]20-64-4004MouxqzbyIqtic upper respiratory infections (1 source)Acute upper respiratory infection, unspecified; Translations: [ACUTE UP RESPIRATORY INFECTION UNS]Onset: 41-69-8492CpulkbbeXiufgrfq codes; unclassified (1 source)Acquired absence of other specified parts of digestive tract; Translations: [ACQ ABSENCE OTH PART DIGESTV TRACT]Onset: 04-45-1977Yvrnfzqg Residual codes; unclassified (1 source)Acquired absence of both cervix and uterus; Translations: [ACQUIRED ABSENCE BOTH CERVIX AND UTERUS]Onset: 65-53-4897ZmsbhtrwDpzoezgue-related disorders (5 sources)Nicotine dependence, cigarettes, uncomplicated; Translations: [NICOTINE DEPEND CIGARETTES UNCOMP]Onset: 41-16-5406MugqjwwIdfzfpu disorders (5 sources)Hypothyroidism, unspecified; Translations: [HYPOTHYROIDISM UNSPECIFIED]Onset: 68-37-6276UxhacggGegduaaxsrkz (2 sources)COUGH, UNSPECIFIED; Translations: [COUGH, UNSPECIFIED]Onset: 07-20-2022 Past or Other Problems Problem ClassificationProblemDateDocumented DateEpisodic/ChronicNonspecific chest pain (4 sources)Chest pain, unspecified; Translations: [CHEST PAIN UNSPECIFIED]Onset: 57-19-6310YvcmhmrwLvfgwpcflnsh (1 source)COUGH, UNSPECIFIED; Translations: [COUGH, UNSPECIFIED]Onset: 07-19-2022 Results Test NameValueInterpretationReference RangeFacilityOffice Visiton 11-13-2024 Follow-up [id number] Deepthi Pantoja 1960 F Date Provider Department Center 11/13/2024 166-IVAN MATA CARD [facility] Family History Problem Relation Age of Onset Heart failure Mother Diabetes Mother Dementia Mother Other Father Family Status - Relation Status Age at Mother Father Level of Service:97883 [place] OFFICE/OUTPATIENT ESTABLISHED MOD MDM 30 MIN Reason for Visit and Comments: Coronary Artery Disease [187] - Denies chest pain but says she gets a poke every once in awhile. Hyperlipidemia [182] - Lipid panel drawn in June 2024. Hasn't been taking simvastatin and she doesn't know why. Hypertension [741056] - Renal US in June 2024, and routine labs drawn [address] Teague started her on lisinopril a few months ago. Valve Disorder [3372] - Had echo in Dec 2023 after last apt. Feels palpitations sometimes, doesn't last long . Shortness of Breath [716827] - With exerionNormalUniversity [facility] HospitalOffice [facility] 24-45-7440Gfuqjz-up [id number] Deepthi Pantoja 1960 F Date Provider Department Center 12/03/2023 271-LAURIE ROB CARD [facility] Family History Problem Relation Age of Onset Heart failure Mother Diabetes Mother Dementia Mother Other Father Family Status - Relation Status Age at Mother Father Level of Service:63511 ND OFFICE/OUTPATIENT ESTABLISHED MOD MDM 30 [facility] HospitalAlbumin [Mass/volume] in Serum or Plasmaon 69-11-7601Shwuzzk [Mass/Vol]3.8 g/dL2.9-4.4FMartin Memorial Hospital Centriole Ab IF (S) [Titer]on 85-09-9271Zesk-Nuclear Ab Centriole PatternTNP. [facility] CenterCentromere Ab IF (S) [Titer]on 39-74-1469Bypz- Nuclear Ab Centromere PatternTNP.[facility] CenterErythrocyte distribution width Auto (RBC) [Ratio]on 71-55-2801Ujehzpdhict distribution width (RBC) [Ratio]13.7 %11.0-15.0[facility] CenterEstimated glomerular filtration rate (GFR) non- Americanon 80-19-9627JQC/1.73 sq M.predicted among non-blacks MDRD (S/P/Bld) [Vol rate/Area]31 mL/min/{1.73_m2} Low>=60[facility] CenterHematocrit Auto (Bld) [Volume fraction] on 32-42-8170Wtbwximpzl (Bld) [Volume fraction]38.8 %36.0-48.0[facility] CenterHemoglobin [Mass/volume] in Bloodon 42-17-2982Rujjvmbvpy (Bld) [Mass/Vol]13.1 g/dL12.0-16.0[facility] CenterHomogenous nuclear Ab pattern (S) [Titer]on 41-41-1318Dmjg-Nuclear Ab Homogeneous PatternTNP. [facility] CenterIgA [Mass/volume] in Serum or Plasmaon 02-76-5666ItE [Mass/Vol]332 mg/jY65-677VrxpxnlhjKettering Health Behavioral Medical CenterIgG [Mass/volume] in Serum or Plasmaon 60-53-3113ObW [Mass/Vol]1291 mg/mK293-7459 [facility] CenterIgM [Mass/volume] in Serum or Plasmaon 47-66-7599NrJ [Mass/Vol]206 mg/kL73-151GdgiswqzlKettering Health Behavioral Medical Center Immunofixation for Urineon 70-00-7786Vxyjtfqgzhwerx Immunofixation (U) [Interp] Comment:.[facility] CenterComment on above:Presence of monoclonal protein is unclear at this time. Suggestrepeat in 3 to 6 months if clinically indicated.Performed at: [facility] [place], [place] [id number] Director: Lex Munguia PhD, Phone: [phone] light chains.kappa.free [Mass/volume] in Serumon 23-58-2526Lzmwyrvrwefkrm light chains.kappa.free (S) [Mass/Vol]54.2 mg/LAbnormal3.3-19.4FMartin Memorial HospitalImmunoglobulin light chains.kappa.free/Immunoglobulin light chains.lambda.free [Rayray 83-57-1848Nsyuqpzamhgdcj light chains.kappa.free/Immunoglobulin light chains.lambda.free (S) [Mass ratio]1.00 0.26-1.65[facility] CenterComment on above:Performed at: [employer] [place], [place] [id number] Director: Lex Munguia PhD, Phone: [phone] light chains.lambda.free [Mass/volume] in Serum or Plasmaon 80-79-2448Ztwpnhgborwlmd light chains.lambda.free [Mass/Vol]54.3 mg/LAbnormal5.7-26.3FMartin Memorial HospitalLaboratory - Chemistry and Chemistry - challengeon 29-84-5650Uymnfiq [Mass/Vol]3.6 g/dL3.4-5.0[facility] CenterCalcium [Mass/Vol]9.2 mg/dL8.5-10.1FMartin Memorial HospitalChloride [Moles/Vol]101 mmol/L 98-107[facility] Medical CenterCO2 [Moles/Vol]27.2 mmol/L21.0-32.0 [facility] CenterCreatinine [Mass/Vol]1.68 mg/dLHigh0.55-1.02 [facility] CenterGFR/1.73 sq M.predicted MDRD (S/P/Bld) [Vol rate/Area]37 mL/min/{1.73_m2}Low>=60[facility] CenterGlucose [Mass/Vol]125 mg/jGObkh78-940ZpzasskqaKettering Health Behavioral Medical CenterMagnesium [Mass/Vol]1.6 mg/dLLow1.8-2.4FMartin Memorial HospitalPotassium [Moles/Vol]4.5 mmol/L3.5-5.1FMartin Memorial HospitalProtein [Mass/Vol] 0.3 g/dLAbnormalNot ObservedCincinnati VA Medical Centerodium [Moles/Vol] 138 mmol/R919-587HegmuksbqKettering Health Behavioral Medical CenterUrate [Mass/Vol]6.5 mg/dLHigh 2.6-6.0[facility] CenterUrea nitrogen [Mass/Vol]21.0 mg/dLHigh 7.0-18.0[facility] CenterUrea nitrogen/Creatinine [Mass ratio] 12.5 mg/mgKettering Health Behavioral Medical CenterBilirubin Ql (U)NegativeNEGATIVE [facility] CenterGlucose (U) [Mass/Vol]NegativeNEGATIVEKettering Health Behavioral Medical CenterKetones Ql (U)NegativeNEGATIVEKettering Health Behavioral Medical CenterpH (U)6.0 [pH]5.0-9.0[facility] Medical Centerpecific gravity (U) [Rel density]1.0251.005-1.025[facility] Medical CenterUrobilinogen Qn (U)1.0 {Samira'U}/dL0.2-1.0[facility] CenterLaboratory - Specimen informationon 48-39-9806Epplkuujej (U)CLEARCLEARFMartin Memorial HospitalColor (U)LT. YELLOWYELLOWKettering Health Behavioral Medical Center Laboratory - Urinalysison 35-21-2342Nuawauaur esterase Test strip Ql (U)Negative NEGATIVEKettering Health Behavioral Medical CenterMucus Ql (Urine sed)TRACEAbnormalNONE SEENKettering Health Behavioral Medical CenterNitrite Ql (U)NegativeNEGATIVEKettering Health Behavioral Medical CenterProtein (U) [Mass/Vol]54.6 mg/dLHigh<=11.9[facility] CenterProtein Ql (U)30 mg/dLAbnormalNEG/TRACEKettering Health Behavioral Medical CenterLeukocytes [#/volume] corrected for nucleated erythrocytes in Blood by Automated counon 76-47-7486LZT corrected for nucl RBC Auto (Bld) [#/Vol]7.7 10 3/uL4.0-11.0[facility] HospitalH Auto (RBC) [Entitic mass]on 54-25-0598HTT (RBC) [Entitic mass]30.8 pg26.7-34.0[facility] Medical CenterMCHC Auto (RBC) [Mass/Vol]on 37-64-2797NWRF (RBC) [Mass/Vol]33.8 g/dL29.9-35.2FMercy Health – The Jewish HospitalV Auto (RBC) [Entitic vol]on 91-22-2137QIO (RBC) [Entitic vol]91.1 fL81.0-99.0[facility] CenterMidbody Ab IF (S) [Titer]on 10-21-5637Qiti-Nuclear Ab Midbody PatternTNP.[facility] Medical CenterMitotic spindle apparatus Ab IF [Titer]on 66-58-0753KPS Spindle Apparatus PatternTNP.[facility] Medical CenterMyeloperoxidase Ab [Units/volume] in Serum by Immunoassayon 47-51-7012Tspzufkvdubbqmb Ab IA Qn (S)<0.2 units0.0-0.9[facility] CenterNo Panel Informationon 48-66-096720443430-Vdbgwnt Vitamin D Total21.8 ng/mLKettering Health Behavioral Medical CenterComment on above:<20 ng/mL Vit D tichotsus44-<30 ng/mL Vit D xwbuoisdbjcp21-677 ng/mL Vit D sufficient>100 ng/mL Potential ToxicityAnti-Nuclear Antibody Comment 2Comment.[facility] CenterComment on above:Pattern Potential Disease Association Homo geneous Systemic Lupus Erythematosus, Drug Induced Systemic Lupus Erythematosus, Chronic Autoimmunehepatitis, Juvenile Idiopathic Arthritis Speckled Sjogren Syndrome, Systemic Lupus Erythematosus, Subacute Cutaneous Lupus, Lupus, Congenital Heart Block, Mixed Connective Tissue Disease, Scleroderma-diffuse, Scleroderma- Autoimmune Myositis Overlap Syndrome, Systemic Lupus Zxcszlaffursq-Duixflisfnw-Idtbwnniib Myositis Overlap Syndrome, Systemic Autoimmune Rheumatic Disease, Undifferentiated Connective Tissue Disease Nucleolar Systemic Sclerosis, Scleroderma-Autoimmune Myositis Overlap Syndrome, Sjogren Syndrome, Raynaud phenomenon, Pulmonary Arterial Hypertension, Systemic Autoimmune Rheumatic Disease, Cancer Centromere Scleroderma-CREST, Limited Cutaneous SSc, Raynaud's Phenomenon, Primary Biliary Cholangit is Nuclear Dot Primary Biliary Cholangitis Nuclear Primary Biliary Cholangitis, AutoimmuneMembrane Hepatitis/Liver disease, Systemic Autoimmune Rheumatic Disease, Autoimmune Cytopenias, Linear Scleroderma, Antiphospholipid Syndrome Performed at: - [facility] [id number] [place], [place] [id number] Director: Lex Munguia PhD, Phone: [phone] Potential Disease Association Homo geneous Systemic Lupus Erythematosus, Drug Induced Systemic Lupus Erythematosus, Chronic Autoimmunehepatitis, Juvenile Idiopathic Arthritis Speckled Sjogren Syndrome, Systemic Lupus Erythematosus, Subacute Cutaneous Lupus, Lupus, Congenital Heart Block, Mixed Connective Tissue Disease, Scleroderma-diffuse, Scleroderma- Autoimmune Myositis Overlap Syndrome, Systemic Lupus Exxmptbppwwwi-Fqnkvyxdiwl-Wqjuohvwwt Myositis Overlap Syndrome, Systemic Autoimmune Rheumatic Disease, Undifferentiated Connective Tissue Disease Nucleolar Systemic Sclerosis, Scleroderma-Autoimmune Myositis Overlap Syndrome, Sjogren Syndrome, Raynaud phenomenon, Pulmonary Arterial Hypertension, Systemic Autoimmune Rheumatic Disease, Cancer Centromere Scleroderma-CREST, Limited Cutaneous SSc, Raynaud's Phenomenon, Primary Biliary Cholangit is Nuclear Dot Primary Biliary Cholangitis Nuclear Primary Biliary Cholangitis, AutoimmuneMembrane Hepatitis/Liver disease, Systemic Autoimmune Rheumatic Disease, Autoimmune Cytopenias, Linear Scleroderma, Antiphospholipid Syndrome Performed at: [facility] CenterMn[address]vt[address] [place] [id number] Director: Lex Munguia PhD, Phone: [phone] p-ANCA<1:20 titerNeg:<1:20[facility] CenterComment on above:The atypical pANCA pattern has been observed in asignificant percentage of patients with ulcerativecolitis,primary sclerosing cholangitis and autoimmune hepatitis.Performed at: [facility] [address] [id number] Director: Sam Tolbert MD, Phone: [phone] at: [facility] CenterFonjuq[address] [place] [id number] Director: Lex Munguia PhD, Phone: [phone] Hormone (Intact)98 pg/yNSaboxyse66-66OxopjqnfyKettering Health Behavioral Medical CenterComment on above:Performed at: [employer] [id number] [place], [place] [id number] Director: Lex Munguia PhD, Phone: [phone] ANCA (p-ANCA) Antibody<1:20 titerNeg:<1:20[facility] CenterComment on above:The presence of positive fluorescence exhibiting P-ANCA orC-ANCA patterns alone is not specific forthe diagnosis ofWegener's Granulomatosis (WG) or microscopic polyangiitis.Decisions about treatmentshould not be based solely onANCA IFA results. The International ANCA Group Consensusrecommends follow up testing of positive sera with both ND-3 and MPO-ANCA enzyme immunoassays. As many as 5% serumsamples are positive only by EIA. Ref. AM J Clin Fikraz6127;111:507-513.Phosphorus Level3.9 mg/dL2.6-4.7FMartin Memorial HospitalProtein Electrophoresis NoteComment.[facility] CenterComment on above:Protein electrophoresis scan will follow via computer,mail, or rush seater delivery.Urine BacteriaTRACE #/HPFAbnormalNONE SEEN [facility] CenterUrine Culture ReflexedSumma Health Akron CampusUrine Occult BloodNegativeNEGATIVEKettering Health Behavioral Medical CenterUrine Other CastsNONE SEEN #/LPFNONE [facility] Urine Other CrystalsNone Seen #/HPFNone [facility] Urine Random Stnrqfftnp316.59 mg/dL20.00-300.00[facility] Urine RBC0-2 #/HPF0-2FMartin Memorial HospitalUrine Squamous Epithelial CellsFEW #/LPFAbnormalNONE/RAREKettering Health Behavioral Medical CenterUrine Transitional Epithelial CellsRARE #/LPFAbnormalNONE [facility] CenterUrine WBC0-2 #/HPFAbnormalNONE [facility] CenterNuclear Ab (S) [Titer]on 44-76-5788Qwsc-Nuclear Antibody ScreenPositive Abnormal.[facility] CenterComment on above:Negative <1:80 Borderline 1:80 Positive >1:80Negative <1:80 Borderline 1:80 Positive >1:80 Nuclear dots nuclear Ab pattern IF (S) [Titer]on 20-31-0502Xakn-Nuclear Ab Nuclear Dot PatternTNP.[facility] CenterNuclear membrane pores nuclear Ab pattern IF (S) [Titer]on 27-15-5734PBT Nuclear Membrane PatternTNP. [facility] CenterNucleolar nuclear Ab pattern (S) [Titer]on 54-61-3844Dshg-Nuclear Ab Nucleolar Pattern1:160Abnormal.[facility] CenterComment on above:ICAP nomenclature: AC-8,9,10ICAP nomenclature: AC-8,9,10PCNA extractable nuclear Ab IF (S) [Titer]on 32-10-1490Izfn-Nuclear Ab PCNA PatternTNP.[facility] Medical CenterPlatelet mean volume Auto (Bld) [Entitic vol]on 33-07-4051Tkakqaml mean volume (Bld) [Entitic vol]11.9 fL 9.5-13.5FMartin Memorial HospitalPlatelets Auto (Bld) [#/Vol]on 24-23-1867Rddleaach (Bld) [#/Vol]215 10 3/pF703-303WghlulxqzKettering Health Behavioral Medical CenterProtein [Mass/volume] in Serum or Plasmaon 16-25-6244Vprbcdy [Mass/Vol]7.6 g/dL6.0-8.5FMartin Memorial HospitalProteinase 3 Ab [Units/volume] in Serum by Immunoassayon 21-88-7174Vpscpclyxk 3 Ab IA Qn (S)<0.2 units0.0-0.9 [facility] CenterRBC Auto (Bld) [#/Vol]on 24-23-3372XVH (Bld) [#/Vol]4.26 10 6/uL4.20-5.40[facility] Centererum classic neutrophil cytoplasmic antibody titer by immunofluorescenceon 09-25-2023 Neutrophil cytoplasmic Ab.classic IF (S) [Titer]<1:20 titerNeg:<1:20[facility] Centererum globulin measurement (mass/volume)on 09-25-2023 Globulin (S) [Mass/Vol]3.8 g/dL2.2-3.9[facility] Centererum or plasma albumin/globulin mass ratioon 32-20-2263Qspykqp/Globulin [Mass ratio]1.1 {ratio}0.7-1.7FWooster Community Hospitalerum or plasma alpha 1 globulin measurement by electrophoresis (mass/volume)on 65-55-4705Jypls 1 globulin Elph [Mass/Vol]0.3 g/dL0.0-0.4FWooster Community Hospitalerum or plasma alpha 2 globulin measurement by electrophoresis (mass/volume)on 59-87-2263Elojq 2 globulin Elph [Mass/Vol]1.0 g/dL0.4-1.0[facility] Centererum or plasma anion gap determinationon 05-21-1807Zgmzr gap [Moles/Vol]14.3 mmol/L [facility] Centererum or plasma beta globulin measurement by electrophoresis (mass/volume)on 64-37-2705Lcfn globulin Elph [Mass/Vol]1.2 g/dL 0.7-1.3FWooster Community Hospitalerum or plasma gamma globulin measurement by electrophoresis (mass/volume)on 75-69-9506Abath globulin Elph [Mass/Vol]1.4 g/dL0.4-1.8[facility] Centererum or plasma immunoelectrophoresis interpretationon 11-83-1414Zqzzelzothekss IEP [Interp] CommentAbnormal.[facility] CenterComment on above:Immunofixation shows IgG monoclonal protein with lambdalight chain specificity.Speckled nuclear Ab pattern (S) [Titer]on 76-35-7164Vxpy-Nuclear Ab Speckled Pattern1:320 Abnormal.[facility] CenterComment on above:ICAP nomenclature: AC-2,4,5,29ICAP nomenclature: AC-2,4,5,29Urine protein/creatinine ratioon 14-67-3557Ckirtje/Creatinine (U) [Ratio]0.39[facility] GROUP A STREP CULTUREon 07-19-2022S. pyogenes Ag Ql (Unsp spec)Culture Observations: NEGATIVE FOR GROUP A STREPTOCOCCUS.NormalThe [facility] & Brentwood HospitalComment on above: Performed By: #### SSCRN, GRASTCX ####[facility] [address] [place], [place] [address]Go. Marbella ChangSTREPT SCREENon 16-39-5120QNIYB SCREEN ANegativeNormalNEGATIVEThe [facility] & [facility] HospitalComment on above:Performed By: #### SSCRN, GRASTCX ####[facility] [address] [address]Dr. Marbella JefferyXR CHEST 2 Von 88-44-0006VL CHEST 2 VEXAMINATION: XR CHEST 2 V HISTORY: COUGH , [...] Electronically authenticated by: ALEX LEWIS Date: 2022-07-19 10:18NoReg[facility] AUTO DIFFon 30-51-0430VTHM #0.1 103/ulNormal0.0-0.1[facility] Medical CenterComment on above:Performed By: #### CBC #### [facility] [address] [place] [address] Dr. Marbella JefferyBasophils/100 WBC (Bld)0.7 %Normal0.2-2.0[facility] Comment on above:Performed By: #### CBC #### [facility] [address] [place] [address] Dr. Marbella Smith #0.2 103/ulNormal0.0-0.7The [facility] HospitalComment on above: Performed By: #### CBC #### [facility] [address] [address] [address] Marbella Goosinophils/100 WBC (Bld)1.8 %Normal0.9-7.0[facility] Comment on above:Performed By: #### CBC #### [facility] [address] [address] [address] Marbella Gorythrocyte distribution width (RBC) [Ratio]13.5 %Idxqlm72.0-15.0 The [facility] Brent[facility] HospitalComment on above:Performed By: #### CBC #### [facility] [address] [place] [address] Dr. Yilan ChangHematocrit (Bld) [Volume fraction]35.2 %Critically low36.0-48.0 The [facility] HospitalComment on above:Performed By: #### CBC #### [facility] [address] [place] [address] Dr. Marbella JefferyHemoglobin (Bld) [Mass/Vol]11.8 g/dLCritically low12.0-16.0The [facility] HospitalComment on above:Performed By: #### CBC #### [facility] [address] [place] [address] Dr. Marbella JefferyIG #0.02 10e3/ulNormal0.00-0.03The [facility] HospitalComment on above:Performed By: #### CBC #### [facility] [address] [place] [address] Dr. Marbella JefferyIG %0.2 %Normal0.0-0.5The [facility] HospitalComment on above: Performed By: #### CBC #### [facility] [address] [place] [address] Dr. Marbella Murcia #2.2 103/ulNormal1.2-3.8The [facility] HospitalComment on above:Performed By: #### CBC #### [facility] [address] [place] [address] Dr. Marbella Donahuemphocytes/100 WBC (Bld)25.2 %Ylbhqq45.5-60.0The [facility] HospitalComment on above:Performed By: #### CBC #### [facility] [address] [place] [address] Dr. Marbella ContrerasUAL DIFF REQNONormalThe [facility] HospitalComment on above: Performed By: #### CBC #### [facility] [address] [place] [address] Dr. Marbella Eric (RBC) [Entitic mass]30.3 vzPamhhr17.7-34.0The [facility] HospitalComment on above:Performed By: #### CBC #### [facility] [address] [place] [address] Dr. Marbella Almaraz (RBC) [Mass/Vol]33.5 g/zOCwlpkg57.9-35.2The [facility] HospitalComment on above:Performed By: #### CBC #### [facility] [address] [address] [address] Marbella AlmarazV (RBC) [Entitic vol]90.3 dPGvoedn56.0-99.0The [facility] HospitalComment on above:Performed By: #### CBC #### [facility] [address] [place] [address] Dr. Marbella Rodriguez #0.8 103/ulNormal0.3-0.8The [facility] HospitalComment on above:Performed By: #### CBC #### [facility] [address] [place] [address] Dr. Marbella Solitarioocytes/100 WBC (Bld)9.2 %Normal1.7-12.0The [facility] Comment on above:Performed By: #### CBC #### [facility] [address] [place] [address] Dr. Marbella Hill #5.5 103/ulNormal1.4-6.5The [facility] HospitalComment on above:Performed By: #### CBC #### [facility] [address] [place] [address] Dr. Marbella Albertutrophils/100 WBC (Bld)62.9 %Kotruv89.0-75.0The [facility] HospitalComment on above:Performed By: #### CBC #### [facility] [address] [place] [address] Dr. Marbella Canaleslet mean volume (Bld) [Entitic vol]11.2 fLNormal9.5-13.5The [facility] HospitalComment on above:Performed By: #### CBC #### [facility] [address] [place] [address] Dr. Marbella JefferyPLT203 103/fqRwdljg664-594Ujq [facility] HospitalComment on above: Performed By: #### CBC #### [facility] [address] [address] [address] Marbella JefferyRBC3.90 106/ulCritically low4.20-5.40The [facility] HospitalComment on above:Performed By: #### CBC #### [facility] [address] [place] [address] Dr. Marbella JefferyWBC8.7 103/ulNormal4.0-11.0The [facility] HospitalComment on above: Performed By: #### CBC #### [facility] [address] [place] [address] Dr. Marbella Menchaca THYROXINE INDEX T7on 75-42-4250SUB5.09Critically high 1.30-4.50The [facility] on above:Performed By: #### TSH, LIPID, CMP, T7 #### [facility] [address] [place] [address] Dr. Marbella JefferyT3U38.0 %Bzxpbi65.0-39.0The [facility] HospitalComment on above: Performed By: #### TSH, LIPID, CMP, T7 #### [facility] [address] [place] [address] Dr. Marbella JefferyT4 [Mass/Vol]13.40 ug/dLNormal4.80-13.90[facility] Comment on above:Performed By: #### TSH, LIPID, CMP, T7 #### [facility] [address] [place] [address] Dr. Marbella JefferyLIPID PROFILEon 47-88-2812FVNC-HDL RATIO NORMSEE [facility] InstituteComment on above:Result Comment: 3.3 - 4.4 LOW RISK 4.4 - 7.1 AVERAGE RISK 7.1 - 11.0 MODERATE RISK >11.0 HIGH RISKPerformed By: #### TSH, LIPID, CMP, T7 #### [facility] [address] [place] [address] Dr. Marbella JefferyCholesterol [Mass/Vol]137 mg/dLNormal<=200The [facility] Comment on above:Performed By: #### TSH, LIPID, CMP, T7 #### [facility] [address] [address] [address] Marbella Galeanoesterol in HDL [Mass/Vol]44 mg/pBOetnfq16-69Rqx [facility] on above:Performed By: #### TSH, LIPID, CMP, T7 #### [facility] [address] [address] [address] Marbella Galeanoesterol in LDL [Mass/Vol]67.2 mg/dLNoMagruder HospitalComment on above:Performed By: #### TSH, LIPID, CMP, T7 #### [facility] [address] [address] [address] Marbella Cochran.total/Cholesterol in HDL [Mass ratio]3.1 {ratio} NormalThe [facility] & [facility] HospitalComment on above:Performed By: #### TSH, LIPID, CMP, T7 #### [facility] [address] [place] [address] Dr. Marbella Betancourt NORMAL> or = 60 mg/dl - LOW CARDIOVASCULAR RISK <40 mg/dl - HIGH CARDIOVASCULAR RISKNoMagruder HospitalComment on above:Performed By: #### TSH, LIPID, CMP, T7 #### [facility] [address] [place] [address] Dr. Marbella Nova CALC NORMALSEE BELOWSuburban Community Hospital & Brentwood HospitalComment on above:Result Comment: <100 mg/dl OPTIMAL 100 - 129 mg/dl NEAR OR ABOVE OPTIMAL 130 - 159 mg/dl BORDERLINE HIGH 160 - 189 mg/dl HIGH >190 mg/dl VERY HIGH Performed By: #### TSH, LIPID, CMP, T7 #### [facility] [address] [address] [address] Marbella JefferyTriglyceride [Mass/Vol]129 mg/dLNormal<=150[facility] Comment on above:Performed By: #### TSH, LIPID, CMP, T7 #### [facility] [address] [address] [address] Marbella Dela CruzLDL CALC25.8 mg/dLNoMagruder HospitalComment on above: Performed By: #### TSH, LIPID, CMP, T7 #### [facility] [address] [address] [address] Marbella Keating 14(COMP METB)on 17-69-5381Xfmjkny [Mass/Vol]3.1 g/dL Critically low3.4-5.0The [facility] HospitalComment on above:Performed By: #### TSH, LIPID, CMP, T7 #### [facility] [address] [address] [address] Marbella JefferyAlbumin/Globulin [Mass ratio]0.7 {ratio}NormalThe [facility] HospitalComment on above:Performed By: #### TSH, LIPID, CMP, T7 #### [facility] [address] [place] [address] Dr. Marbella Nash [Catalytic activity/Vol]168 U/LCritically ruyw19-451Iyq [facility] HospitalComment on above:Performed By: #### TSH, LIPID, CMP, T7 #### [facility] [address] [place] [address] Dr. Marbella Lewis [Catalytic activity/Vol]14 U/SMtsyux63-81Rye [facility] HospitalComment on above:Performed By: #### TSH, LIPID, CMP, T7 #### [facility] [address] [place] [address] Dr. Marbella Leung gap [Moles/Vol]12.8 mmol/LNormalThe [facility] Comment on above:Performed By: #### TSH, LIPID, CMP, T7 #### [facility] [address] [place] [address] Dr. Marbella Berrios [Catalytic activity/Vol]13 U/LCritically awc10-74Ojy [facility] HospitalComment on above:Performed By: #### TSH, LIPID, CMP, T7 #### [facility] [address] [place] [address] Dr. Marbella JefferyBilirubin [Mass/Vol]0.4 mg/dLNormal0.2-1.0The [facility] Comment on above:Performed By: #### TSH, LIPID, CMP, T7 #### [facility] [address] [place] [address] Dr. Marbella JefferyCalcium [Mass/Vol]9.0 mg/dLNormal8.5-10.1The [facility] Comment on above:Performed By: #### TSH, LIPID, CMP, T7 #### [facility] [address] [address] [address] Marbella JefferyChloride [Moles/Vol]105 mmol/MZuwolb95-378Zcs [facility] Comment on above:Performed By: #### TSH, LIPID, CMP, T7 #### [facility] [address] [address] [address] Marbella JefferyCO2 [Moles/Vol]27.9 mmol/IBmngfh35.0-32.0The [facility] Comment on above:Performed By: #### TSH, LIPID, CMP, T7 #### [facility] [address] [address] [address] Marbella JefferyCreatinine [Mass/Vol]1.17 mg/dLCritically high0.55-1.02The [facility] HospitalComment on above:Performed By: #### TSH, LIPID, CMP, T7 #### [facility] [address] [address] [address] Marbella GoGFR-AF SBUIGMBY50 mL/min/1.15o8Ikbmmuibli low>=60The [facility] HospitalComment on above:Performed By: #### TSH, LIPID, CMP, T7 #### [facility] [address] [address] [address] Marbella GoGFR-NON AF SMMHXXMT67 mL/min/1.75y9Vduieywrzt low>=60The [facility] HospitalComment on above:Performed By: #### TSH, LIPID, CMP, T7 #### [facility] [address] [address] [address] Marbella JefferyGlobulin (S) [Mass/Vol]4.5 g/dLNormalThe [facility] HospitalComment on above:Performed By: #### TSH, LIPID, CMP, T7 #### [facility] [address] [address] [address] Marbella JefferyGlucose [Mass/Vol]105 mg/dGGjrdum81-278TttUniversity Hospitals [facility] Center Comment on above:Performed By: #### TSH, LIPID, CMP, T7 #### [facility] [address] [address] [address] Marbella JefferyPotassium [Moles/Vol]3.7 mmol/LNormal3.5-5.1[facility] Comment on above:Performed By: #### TSH, LIPID, CMP, T7 #### [facility] [address] [place] [address] Dr. Marbella JefferyProtein [Mass/Vol]7.6 g/dLNormal6.4-8.2[facility] Comment on above:Performed By: #### TSH, LIPID, CMP, T7 #### [facility] [address] [place] [address] Dr. Marbella JefferySodium [Moles/Vol]142 mmol/UYudzrl193-340Qea [facility] Comment on above:Performed By: #### TSH, LIPID, CMP, T7 #### [facility] [address] [place] [address] Dr. Marbella JefferyUrea nitrogen [Mass/Vol]14.0 mg/dLNormal7.0-18.0[facility] CenterComment on above:Performed By: #### TSH, LIPID, CMP, T7 #### [facility] [address] [place] [address] Dr. Marbella JefferyUrea nitrogen/Creatinine [Mass ratio]12.0 mg/mgNormalThe [facility] HospitalComment on above:Performed By: #### TSH, LIPID, CMP, T7 #### [facility] [address] [place] [address] Dr. Marbella Rutledge 04-76-9534AGA Qnm[IU]/LCritically low0.358-3.740[facility] CenterComment on above:Result Comment: TEST REPEATED FOR VERIFICATION Performed By: #### TSH, LIPID, CMP, T7 #### [facility] [address] [place] [address] Dr. Marbella MarshF CHEM 8 (BAS METB)on 57-82-1586Wbtht gap [Moles/Vol]11.2 mmol/LNormalThe [facility] HospitalComment on above:Performed By: #### BMP ####[facility] [address] [place], [place] [address]Dr. Yijv ChangCalcium [Mass/Vol]9.2 mg/dLNormal8.5-10.1The [facility] HospitalComment on above:Performed By: #### BMP ####[facility] [address] [place], [place] [address]Dr.Yilan ChangChloride [Moles/Vol]102 mmol/LNormal 98-107The [facility] HospitalComment on above:Performed By: #### BMP ####[facility] [address] [place], [place] [address]Dr.Yilan ChangCO2 [Moles/Vol]29.3 mmol/DOmtqxb94.0-32.0The [facility] HospitalComment on above: Performed By: #### BMP ####[facility] [address] [place], [place] [address]Dr.Yilan ChangCreatinine [Mass/Vol]1.32 mg/dL Critically high0.55-1.02The [facility] HospitalComment on above:Performed By: #### BMP ####[facility] [address] [place], [place] [address]Dr.Yilan ChangEGFR-AF HOSRIZLA36 mL/min/1.27d7Ibginjcdth low>=60The [facility] HospitalComment on above:Performed By: #### BMP ####[facility] [address] [place], [place] [address]Dr.Yilan ChangEGFR-NON AF DPDQVECN73 mL/min/1.19x5Othybdiflr low>=60The [facility] HospitalComment on above: Performed By: #### BMP ####[facility] [address] [place], [place] [address]Dr.Yilan ChangGlucose [Mass/Vol]127 mg/dLCritically odvm51-248Ajr [facility] HospitalComment on above:Performed By: #### BMP ####[facility] [address] [place], [place] [address]Dr. Yilan ChangPotassium [Moles/Vol]4.5 mmol/LNormal3.5-5.1The [facility] Comment on above:Performed By: #### BMP ####[facility] [address] [address]Dr.Marbella ChangSodium [Moles/Vol]138 mmol/L Rgixbp450-151Ddn [facility] HospitalComment on above:Performed By: #### BMP ####[facility] [address] [address]Dr. Marbella ChangUrea nitrogen [Mass/Vol]20.0 mg/dLCritically high7.0-18.0The [facility] HospitalComment on above:Performed By: #### BMP ####[facility] [address] [address]Dr.Marbella ChangUrea nitrogen/Creatinine [Mass ratio]15.2 mg/mgNormalThe [facility] HospitalComment on above:Performed By: #### BMP ####[facility] [address] [address]Dr.Marbella JefferyNM STRESS/REST MULTIon 10-39-6260SA STRESS/REST MULTIPatient: DEEPTHI PANTOJA Exam Date: 03/15/2022 : 1960 Gender:F Ordering : DR YONY TEAGUE . Admission #: [id number] Family : Order #: [id number] CLICK HERE TO VIEW EXAM RADIOLOGY REPORT [...] by: Alex Lewis M.D. on 03/16/2022 at 07:23[facility] LUNG CANCER SCREENINGon [id number] LUNG CANCER SCREENING EXAMINATION: CT LUNG CANCER [...] Electronically authenticated by: ALEX LEWIS Date: 2022-03-01 08:03[facility] HospitalMRI BRAIN WO W CONon [id number] BRAIN WO W CONEXAMINATION: MRI BRAIN WO W CON HISTORY: Multiple [...] Electronically authenticated by: MICHAEL ELIZONDO Date: 2021-08-20 08:33[facility] HospitalCREATININEon 42-90-3012Zpzxfpqfjl [Mass/Vol]1.35 mg/dL Critically high0.55-1.02The [facility] HospitalComment on above:Performed By: #### CREA #### [facility] [address] [address] [address] Marbella GoGFR-AF UEMUZQIA26 mL/min/1.40s9Mlvazmqihx low>=60The [facility] HospitalComment on above:Performed By: #### CREA #### [facility] [address] [address] [address] Marbella GoGFR-NON AF RCCHLKWK52 mL/min/1.27s8Qwxjgzrccu low>=60The [facility] HospitalComment on above:Performed By: #### CREA #### [facility] [address] [address] [address] Marbella Jeffery Vital Signs Date TimeVital SignValuePerforming TpedyuqfzPongzmhu49-87-5134 10:35-0400 Diastolic blood mm[Hg]Yony Teague MD Work Phone: [phone]07-03-2025 10:35-0400 Systolic blood cmifaghy503 mm[Hg]Yony Teague MD Work Phone: [phone] [place], [place] 7690507-03-2025 10:28-0400 Body oktceb707.48 cmYony Teague MD Work Phone: [phone] [place], [place] [address]690507-03-2025 10:28-0400 Body mass index (BMI) [Ratio]26.6 kg/f7HovegudYony Teague MD Work Phone: [phone] [place], [place] [address]7-03-2025 10:28-0400 Body fswgxdubgml91.7 [degF]Yony Teague MD Work Phone: [phone] [place], [place] [address]0507-03-2025 10:28-0400 Body cnixus02.22 kgYony Teague MD Work Phone: [phone] [place], [place] [address]0507-03-2025 10:28-0400 Heart rate61 /Jeanie Teague MD Work Phone: [phone] [place], [place] 7690507-03-2025 10:28-0400 Respiratory rate18 /Jeanie Teague MD Work Phone: [phone] [place], [place] 7690507-03-2025 10:28-0400 SaO2% (BldA) [Mass fraction]98 %Yony Teague MD Work Phone: [phone] [place], [place] [address]0507-25-2024 10:43-0400 Body bngrye638.48 cm[facility]07[facility]-2024 10:43-0400Body mass index (BMI) [Ratio]26.5 kg/c5BtptforxaK[facility] Center07-25-2024 10:43-0400Body ozkvcjzjkln58.5 [degF][facility]07-25-2024 10:43-0400Body jlozwd99.82 kgK[facility]07-25-2024 10:43-0400Diastolic blood kseosyeb94 mm[Hg][facility] 10-04-2023 10:43-0400Heart rate60 /minK[facility] 10-04-2023 10:43-0400Respiratory rate16 /minK[facility] 10-04-2023 10:43-9531PuQ9% (BldA) [Mass fraction]97 %[facility]07-25-2024 10:43-0400Systolic blood xetdmlmq308 mm[Hg][facility]06-20-2024 15:45-0400Body .48 cmK[facility]06-20-2024 15:45-0400Body mass index (BMI) [Ratio]26.2 kg/m2 [facility]06-20-2024 15:45-0400Body yoekedvflvp84.4 [degF][facility]06-20-2024 15:45-0400Body .86 kg [facility]06-20-2024 15:45-0400Diastolic blood ofrfruzr75 mm[Hg][facility]06-20-2024 15:45-0400Heart rate73 /min [facility]06-20-2024 15:45-0400Respiratory rate16 /min [facility]06-20-2024 15:45-0051AnH2% (BldA) [Mass fraction]97 %[facility]06-20-2024 15:45-0400Systolic blood yajakref848 mm[Hg][facility] Encounters Encounter DateEncounter TypeCare ProviderFacilityStart: 11-13-2024 End: 08-45-7343fcarggzzftMVPICDO [facility]: 09-11-2024 End: 27-08-9791bxyqchfhmwGkzmugo M Hoy MD Work Phone: [facility] Work Phone: Start: 09-11-2024 End: 74-52-8264Gixosfk encounter procedureKerwin Andrade MD-[facility] Work Phone: Start: 12-03-2023 End: 87-73-2965plehaagvauEKMKZanesville City Hospitaltart: 10-04-2023 End: 57-82-3110xlajphxldyOmjsvbzdbSum[facility] Work Phone: Start: 10-04-2023 End: 53-04-9212Jxnhawx encounter procedureFormerly [facility] Dm Work Phone: Start: 96-90-2053Aiz-patient / Non-visitFormerly [facility] Work Phone: Start: 08-30-2023 End: 41-45-8552jzwytrovhxDianaiakhMartins Ferry Hospital Work Phone: Start: 08-30-2023 End: 16-91-4034Sroxoqd encounter procedureFormerly [facility] Dm Work Phone: Start: 07-19-2022 End: 11-06-4581lyrnmsbeitBM YONY HOY .Facility:X3Rxafx: 06-28-2022 End: 27-98-1515irsgepjzgySG YONY HOY .Facility:F7Ryjwf: 03-28-2022 End: 21-37-3783dbgaglnhktKK [facility]:P9Cawqy: 03-15-2022 End: 16-19-5254kzqvixwnuhGO YONY HOY .Facility:N2Ykxwa: 02-28-2022 End: 08-50-5967kghfdixrwcGJ YONY HOY .Facility:Y6Pxvoz: 08-19-2021 End: 35-62-3871anfdcfwokuLU YONY HOY .Facility:L5Kolhx: 12-27-2017 End: 56-24-6843Fwrharz encounterDEFAULT PHYSICIANFacility:UTMCStart: 12-03-2017 End: 95-24-5334Qqhegok encounterDEFAULT PHYSICIANFacility:[facility] Plan of Treatment DateCare ActivityDetailAuthorImmunofixation for UrineKettering Health Behavioral Medical CenterRenal function 1999 panel - Serum or [facility] 1999 panel - [facility] or [facility] HospitalRen[facility] function 1999 panel - Serum or [facility] Payers DatePayer CategoryPayerPolicy [id number] [id number] [id number] [id number] [id number] [id number] [id number] [id number] 2.0.[id number] 2.0.1.393210.3.5[id number] Social History DateTypeDetailFacilityStart: 61-05-8484Blhylha smoking status NHISSmoker (finding)[facility]: 03-97-4966Vid Assigned At FemaleCincinnati VA Medical Centertart: 77-86-9804Znvzozs smoking status NHISSmobob tobacco daily (finding)[facility] CenterexFemale (finding)[facility] Progress note 11-13-2024 Note Date & GqwyMitcFpxjmeeg50-87-7949 NoteCardiovascular Medicine [facility] SUBJECTIVE Chief Complaint Patient presents with [...] . Shortness of Breath With exerion Deepthi Kit is a 64 y.o. female here for [...] artery: This vessel garcia (more content not included)...[facility] Progress note 12-03-2023 Note Date & YlopUdqiMwxbmcox87-07-8719 [facility] Chief Complaint: Patient [...] III, and aVF. After (more content not included)...[facility] Evaluation note Note Date & TypeNoteFacilityEvaluation note* Diagnosis Onset Date Resolution Status CAD (coronary artery disease) acuteCKD (chronic kidney disease) stage 3, GFR 30-59 ml/minacuteHyperlipidemia evnxsDYI-YAZO-[id number] hyperparathyroidismWhite Hospital Work Phone: Evaluation note Note Date & TypeNoteFacilityEvaluation note* Diagnosis Onset Date Resolution Status CAD (coronary artery disease) acuteCKD (chronic kidney disease) stage 3, GFR 30-59 ml/minacuteHyperlipidemia ahzerYPT-OIDJ-[id number] hyperparathyroidismacuteCAD (coronary artery disease)acuteCKD (chronic kidney disease) stage 3, GFR 30-59 ml/minacute NhatuxnuqzlzsfxmpamICI-HMNU-[id number]Uijmsyrttaazmafzujk MGUS (monoclonal gammopathy of unknown significance)acuteSecondary hyperparathyroidismacute [facility] Work Phone: Evaluation note Note Date & TypeNoteFacilityEvaluation note* Diagnosis Onset Date Resolution Status Admit Date CAD (coronary artery disease) acuteJuly 2024 10:24amCKD (chronic kidney disease) stage 3, GFR 30-59 ml/minacuteJuly 2024 10:24amHyperlipidemiaacuteJuly 2024 10:24am Hypertensive chronic kidney disease with stage 1 through stage 4 chronic kiacute Vonnie 2024 10:24amHyperuricemiaacuteJuly 2024 10:24amHypomagnesemia acuteJuly 2024 10:24amMGUS (monoclonal gammopathy of unknown significance) acuteJuly 2024 10:24amSecondary hyperparathyroidismacuteJuly 2024 10:24am [facility] Work Phone: Reason for referral (narrative) Note Date & TypeNoteFacilityReason for referral (narrative)No reason for referral information availableCommunity Memorial Hospital Work Phone: Summary Purpose Family [...] disease) stage 3, GFR 30-59 ml/min Hyperlipidemia [id number] Secondary hyperparathyroidism Chief Complaint RENAL CKD / RENAL FA ILURE 6 week follow upReason for VisitCAD (coronary artery disease) CKD (chronic kidney disease) stage 3, GFR 30-59 ml/min Hyperlipidemia [id number] Secondary hyperparathyroidism CAD (coronary artery disease) CKD (chronic kidney disease) stage 3, GFR 30-59 ml/min Hyperlipidemia [id number] Hyperuricemia Hypomagnesemia MGUS (monoclonal gammopathy of unknown [...] and content) DATE CREATED AUTHOR 01/01/2018 [facility] DATE CREATED AUTHOR AUTHOR'S ORGANIZ ATION 07/22/2022 [facility] DATE CREATED AUTHOR AUTHOR'S ORGANIZ ATION 11/15/2024 [facility] Care Teams (unrecognized sec tion and content) Team Status: Active Member Role Status Dates Yony Teague MD Primary Care Provider Active Team Status: Inactive Member Role Status Katie Andrade MD Attending Provider Active Start : August 30, 2023 End: August 29Blake Rashid Care ProviderActiveStart: August 30, 2023 End: August 30, 2023 Team Status: Active Member Role Status Dates Yony Teague MD Primary Care Provider Active Start: September 25, 2023 Anand Townsend ProviderActiveStart: September 25, 2023 Team Status: Inactive Member Role Status Katie Teague MD Primary Care Provider Active Start: October 04, 2023 End: October 03Anand Armas ProviderActiveStart: October 04, 2023 End: October 04, 2023 Team Status: Inactive Member Role Status Katie Teague MD Primary Care Provider Active Start: September 11, 2024 End: September 11Anand Armas ProviderActiveStart: September 11, 2024 End: September 11, 2024 [...] BE BASED ON THE PRIMARY CLINICAL RECORDS. [employer] [facility]. provides no warranty or guarantee of the accuracy or completeness of information in this document.
--- OUTSIDE RECORDS SUMMARY | 2025-01-15 09:15 | XMS_ITS | Clinical Summary ---
Author Organization [facility] Address [address] [place] [address] Care Team Providers Care Warper Fixer Name Role Phone Unavailable Primary Care Provider Unavailabl e Social History Tobacco UseTypesPacks/DayYears UsedDateSmoking Tobacco: Never Assessed CommentsUnknownSex and Gender InformationValueDate RecordedSex Assigned at Not on fileLegal HrgIojtmd67/15/2023 7:08 PM EDTGender IdentityNot on fileSexual OrientationNot on file Plan of Treatment Not on file Insurance
[2025-01-15 10:46] LABS: Free T3 2.79 pg/mL (2.18-3.98); Thyroid Stimulating Hormone <0.007 uIU/mL (0.358-3.740)
== END 2025-01-15 09:08 | disposition home or self-care (01) ==
LOC: LAB 09:09
PROVIDERS: PCP Family Medicine; Visit Provider Family Medicine
DX: E03.9 Hypothyroidism, unspecified (principal)
CPT/HCPCS: 36415; 84436; 84443; 84481; 86376; 86800

== ENCOUNTER 2025-02-06 10:01 | Emergency (ER) | payer MEDICARE, MEDICAID, SELFPAY ==
--- OUTSIDE RECORDS SUMMARY | 2024-08-19 06:30 | XMS_ITS ---
Author Organization The [facility] in [place] Address [address] [place] [address] Care Team Providers Care Tour Production Supervisor Name Role Phone Zaire Teague Primary Care Provider [phone] Romi Armijo Unavailable [phone] REASON FOR VISIT MD Encounters Encounter Location Date Provider Diagnosis [facility] [address] [place] [address] 08/19/2024 Romi Armijo Plan Of Treatment Next Appt Details Provider Name:ROMI ARMIJO , 02/17/2025 10:30:00 AM, [address] [place], [address], Progress Notes * Deepthi PANTOJADOB:1960 (64 yo F)Acc No.[id number]:08/19/2024 UNLOCKED PROGRESS NOTE Progress Notes Patient: Mich Deepthi IBANEZ :?Romi Armijo M.D.:1960???Age:64 Y ???Sex:FemaleDate:08/19/2024Phone:[phone]:[address] [place] [address]Pcp:Zaire Teague Subjective: * Chief Complaints: * 1 . MD. * Medical History: Objective: * Vitals: Assessment: Plan: * Treatment: * * Electronic signature of Romi Armijo MD, [id number] on 02/06/2025 at 11:20 AM ESTSign off status: PendingVisit Status:?VOICEMSG (Voice) * Provider: Rivka Armijo M.D. Date: 0 08/19/2024 Generated for Printing/Faxing/eTransmitting on:?02/06/2025 11:20 AM EST
--- OUTSIDE RECORDS SUMMARY | 2024-08-27 09:00 | XMS_ITS ---
Author Organization The [facility] in [place] Address [address] [place] [address] Care Team Providers Care Metal Temperer Name Role Phone Zaire Teague Primary Care Provider [phone] Kailash Armijo Unavailable [phone] REASON FOR VISIT CL1 Encounters Encounter Location Date Provider Diagnosis [facility] On[facility] [address] [place] [address] 08/27/2024 Kailash Armijo Plan Of Treatment Next Appt Details Provider Name:KAILASH ARMIJO , 02/17/2025 10:30:00 AM, [address] [place], [address], Progress Notes * Deepthi PANTOJADOB:1960 (64 yo F)Acc No.[id number]:08/27/2024 UNLOCKED PROGRESS NOTE Progress Note Patient: Deepthi ZAVALA :?Kailash Armijo M.D.:1960???Age:64 Y ???Sex:FemaleDate:08/27/2024Phone:[phone]:[address] [place] [address]Pcp:Zaire Teague Subjective: * Chief Complaints: * 1 . CL1. * Medical History: Objective: * Vitals: Assessment: Plan: * Treatment: * * Electronic signature of Kailash Armijo MD, [id number] on 02/06/2025 at 11:20 AM ESTSign off status: PendingVisit Status:?PEN (Pending) * Provider: Rivka Armijo M.D. Date: 0 08/27/2024 Generated for Printing/Faxing/eTransmitting on:?02/06/2025 11:20 AM EST
--- OUTSIDE RECORDS SUMMARY | 2024-09-03 09:00 | XMS_ITS ---
Author Organization The [facility] in [place] Address [address] [place] [address] Care Team Providers Care Pump Rebuilder Name Role Phone Zaire Teague Primary Care Provider Kailash Armijo Unavailable [phone] REASON FOR VISIT CL1 Encounters Encounter Location Date Provider Diagnosis [facility] On[facility] [address] [place] [address] 09/03/2024 Kailash Armijo Plan Of Treatment Next Appt Details Provider Name:KAILASH ARMIJO , 02/17/2025 10:30:00 AM, [address] [place], [address], Progress Notes * Deepthi PANTOJADOB:1960 (64 yo F)Acc No.[id number]:09/03/2024 UNLOCKED PROGRESS NOTE Progress Note Patient: Deepthi ZAVALA :?Kailash Armijo M.D.:1960???Age:64 Y ???Sex:FemaleDate:09/03/2024Phone:[phone]:[address] [place] [address]Pcp:Zaire Teague Subjective: * Chief Complaints: * 1 . CL1. * Medical History: Objective: * Vitals: Assessment: Plan: * Treatment: * * Electronic signature of Kailash Armijo MD, [id number] on 02/06/2025 at 11:20 AM ESTSign off status: PendingVisit Status:?PEN (Pending) * Provider: Rivka Armijo M.D. Date: 0 09/03/2024 Generated for Printing/Faxing/eTransmitting on:?02/06/2025 11:20 AM EST
--- OUTSIDE RECORDS SUMMARY | 2024-11-18 06:30 | XMS_ITS ---
Author Organization [facility] in [place] Address [address] [place] [address] Care Team Providers Care Bellows Charger Assembler Name Role Phone Zaire Teague Primary Care Provider [phone] Romi Armijo Unavailable [phone] REASON FOR VISIT MD Encounters Encounter Location Date Provider Diagnosis [facility] On[facility] [address] [place] [phone] 11/18/2024 Romi Armijo Plan Of Treatment Next Appt Details Provider Name:ROMI ARMIJO , 02/17/2025 10:30:00 AM, [address] [place], [address], Progress Notes * Deepthi PANTOJADOB:1960 (64 yo F)Acc No.[id number]:11/18/2024 UNLOCKED PROGRESS NOTE Progress Notes Patient: Mich Deepthi IBANEZ :?Romi Armijo M.D.:1960???Age:64 Y ???Sex:FemaleDate:11/18/2024Phone:[phone]:[address] [place] [address]Pcp:Zaire Teague Subjective: * Chief Complaints: * 1 . MD. * Medical History: Objective: * Vitals: Assessment: Plan: * Treatment: * * Electronic signature of Romi Armijo MD, [id number] on 02/06/2025 at 11:20 AM ESTSign off status: PendingVisit Status:?CONFPHONE (Voice) * Provider: Rivka Armijo M.D. Date: 0 11/18/2024 Generated for Printing/Faxing/eTransmitting on:?02/06/2025 11:20 AM EST
[2025-02-06 10:07] VITALS: BP 228/113; PULSE 75; TEMP 36.5; O2SAT 98; BMI 25.6
--- NOTE | 2025-02-06 10:15 | CT_ITS ---
The [address] [address] Patient Name: MYRIAM GARCIA MRN: [id number] date: 1960 Sex: F Assigned Patient Location: ER Current Patient Location: .[facility] Accession/Order Number: [id number] Exam Date: 02/06/2025 11:03 Report Date: 02/06/2025 11:51 At the request of: SRINIVASA LATIF MD Procedure: CT lumbar spine wo con CT lumbar spine wo con 02/06/2025 11:23 AM History:Low back pain, fall TECHNIQUE: Multi detector CT axial slices of the lumbar spine were obtained without IV contrast. Volumetric acquisition sagittal, coronal, and 3-D reconstructions were performed and reviewed on a separate workstation. CT was performed with one or more of the following dose reduction techniques: Automated exposure control, adjustment of the mA and/or kV according to patient size, or use of iterative reconstruction technique. COMPARISON: None FINDINGS: There is preservation of the vertebral body heights. There is intervertebral fusion at L5-S1. The intervertebral discs are otherwise preserved. No fractures or dislocations are seen. The alignment of the lumbar spine is normal. Degenerative changes are noted in the sacroiliac joints. The paraspinous soft tissues are within normal limits. The visualized lung parenchyma is unremarkable. There is left-sided renal cortical atrophy similar to the prior exam. Atherosclerotic changes are noted in the abdominal aorta and its branches. The abdominal aorta is ectatic. CT/CT lumbar spine wo con IMPRESSION: No acute bony abnormality or malalignment. There is evidence of previous intervertebral fusion at L5-S1. Impression dictated by: Ruslan Casarez M.D. 02/06/2025 11:51 AM Dictation Location: [place] [address] Electronically authenticated by: [id number] Y Date: 02/06/2025 11:51
--- NOTE | 2025-02-06 10:15 | CT_ITS ---
The [address] [address] Patient Name: MYRIAM GARCIA MRN: [id number] date: 1960 Sex: F Assigned Patient Location: ER Current Patient Location: [facility] Accession/Order Number: [id number] Exam Date: 02/06/2025 11:03 Report Date: 02/06/2025 11:47 At the request of: SRINIVASA LATIF MD Procedure: CT cervical spine wo con CT head/brain wo con, CT cervical spine wo con 02/06/2025 11:24 AM SIGNS AND SYMPTOMS: Fall hitting back of head, neck pain ^fall TECHNIQUE:Multi-detector CT axial slices of the brain and cervical spine were obtained without IV contrast. Helical,sagittal, coronal, and 3-D reconstructions of the cervical spine were performed. CT was performed with one or more of the following dose reduction techniques: Automated exposure control, adjustment of the mA and/or kV according to patient size, or use of iterative reconstruction technique. COMPARISON: None. FINDINGS: Noncontrast head CT: There is no shift of the midline structures, acute intracranial bleeding, mass effects, or evidence of acute ischemia. There is age-related cortical atrophy. This periventricular white matter hypoattenuation. Atherosclerotic changes are noted in the intracranial segments of the internal carotid arteries and V4 segments of the arteries. Remote lacunar infarcts are noted in the right deep zarate nuclei and thalamus. The ventricular system is normal in size. The brainstem and the cerebellum are unremarkable. The visualized intraorbital contents, the visualized paranasal sinuses, and the infratemporal soft tissues show no acute abnormality. The osseous structures in the skull base and the calvarium show no abnormality. Cervical spine: There is preservation of the vertebral body heights. There is mild disc height loss at C4-C5 and C5-C6. Partially calcified central disc protrusions are noted at these levels. No fractures or dislocations are seen. The alignment of the cervical spine is normal. The craniocervical junction and atlantoaxial joint are within normal limits. The prevertebral soft tissues are within normal limits. Atherosclerotic changes are noted in the carotid bifurcations. Surgical clips are noted at the base of the neck on the right. The paraspinous soft tissues are within normal limits. There is pleural scarring in the right lung apex. CT/CT head/brain wo con IMPRESSION: No acute intracranial pathology. Chronic age-related neurodegenerative changes are noted as above with remote lacunar infarcts in the right deep zarate nuclei and thalamus. No acute cervical spine injury. Mild degenerative changes are noted in the cervical spine as above. Impression dictated by: Ruslan Casarez M.D. 02/06/2025 11:47 AM Dictation Location: [place] [address] Electronically authenticated by: [id number] Y Date: 02/06/2025 11:47
--- NOTE | 2025-02-06 10:15 | CT_ITS ---
The [address] [address] Patient Name: MYRIAM GARCIA MRN: [id number] date: 1960 Sex: F Assigned Patient Location: ER Current Patient Location: .[facility] Accession/Order Number: [id number] Exam Date: 02/06/2025 11:03 Report Date: 02/06/2025 11:59 At the request of: SRINIVASA LATIF MD Procedure: CT abdomen pelvis w con CT abdomen pelvis w con 02/06/2025 11:24 AM SIGNS AND SYMPTOMS: ^Upper abdominal pain, fall \S.br\ TECHNIQUE: Multidetector ct axial images of the abdomen and pelvis were obtained with IV contrast. Multiplanar reformats were performed and reviewed to further define anatomy and possible pathology. CT was performed with one or more of the following dose reduction techniques: Automated exposure control, adjustment of the mA and/or kV according to patient size, or use of iterative reconstruction technique. COMPARISON: None. FINDINGS: Lower Chest: There is linear scarring in the left lung base. Calcified and noncalcified plaque is noted in the descending thoracic aorta. ABDOMEN: Liver: Within normal limits. Bile Ducts: Normal caliber. Gallbladder: Previously removed Pancreas: Within normal limits. Spleen: There is hypoenhancement along the anterior aspect of the spleen suggesting a splenic infarct. Adrenals: Within normal limits. Kidneys: There is focal renal cortical atrophy medially on the left suggesting a remote infarct. Pelvis: Reproductive Organs: No pelvic masses. Ureters: Within normal limits. Bladder: Within normal limits. Bowel: Normal caliber. Mesenteric Lymph Nodes: No enlarged mesenteric lymph nodes. Peritoneum: No ascites or free air, no fluid collection. Vessels: Atherosclerotic changes are noted in the abdominal aorta and its branches. There is extensive atherosclerotic plaque within the splenic artery and renal arteries. Retroperitoneum: Within normal limits. Abdominal Wall: Within normal limits. Bones: Degenerative changes are noted in the lumbar spine and sacroiliac joints. CT/CT abdomen pelvis w con IMPRESSION: There is hypoenhancement along the anterior aspect of the spleen suggesting a splenic infarct. No acute traumatic injury. Additional chronic findings are noted as above. Impression dictated by: Ruslan Casarez M.D. 02/06/2025 11:59 AM Dictation Location: [place] [address] Electronically authenticated by: [id number] Y Date: 02/06/2025 11:59
--- NOTE | 2025-02-06 10:16 | CT_ITS ---
The [address] [address] Patient Name: MYRIAM GARCIA MRN: [id number] date: 1960 Sex: F Assigned Patient Location: ER Current Patient Location: .[facility] Accession/Order Number: [id number] Exam Date: 02/06/2025 11:03 Report Date: 02/06/2025 11:47 At the request of: SRINIVASA LATIF MD Procedure: CT cervical spine wo con CT head/brain wo con, CT cervical spine wo con 02/06/2025 11:24 AM SIGNS AND SYMPTOMS: Fall hitting back of head, neck pain ^fall TECHNIQUE:Multi-detector CT axial slices of the brain and cervical spine were obtained without IV contrast. Helical,sagittal, coronal, and 3-D reconstructions of the cervical spine were performed. CT was performed with one or more of the following dose reduction techniques: Automated exposure control, adjustment of the mA and/or kV according to patient size, or use of iterative reconstruction technique. COMPARISON: None. FINDINGS: Noncontrast head CT: There is no shift of the midline structures, acute intracranial bleeding, mass effects, or evidence of acute ischemia. There is age-related cortical atrophy. This periventricular white matter hypoattenuation. Atherosclerotic changes are noted in the intracranial segments of the internal carotid arteries and V4 segments of the arteries. Remote lacunar infarcts are noted in the right deep zarate nuclei and thalamus. The ventricular system is normal in size. The brainstem and the cerebellum are unremarkable. The visualized intraorbital contents, the visualized paranasal sinuses, and the infratemporal soft tissues show no acute abnormality. The osseous structures in the skull base and the calvarium show no abnormality. Cervical spine: There is preservation of the vertebral body heights. There is mild disc height loss at C4-C5 and C5-C6. Partially calcified central disc protrusions are noted at these levels. No fractures or dislocations are seen. The alignment of the cervical spine is normal. The craniocervical junction and atlantoaxial joint are within normal limits. The prevertebral soft tissues are within normal limits. Atherosclerotic changes are noted in the carotid bifurcations. Surgical clips are noted at the base of the neck on the right. The paraspinous soft tissues are within normal limits. There is pleural scarring in the right lung apex. CT/CT cervical spine wo con IMPRESSION: No acute intracranial pathology. Chronic age-related neurodegenerative changes are noted as above with remote lacunar infarcts in the right deep zarate nuclei and thalamus. No acute cervical spine injury. Mild degenerative changes are noted in the cervical spine as above. Impression dictated by: Ruslan Casarez M.D. 02/06/2025 11:47 AM Dictation Location: [place] [address] Electronically authenticated by: [id number] Y Date: 02/06/2025 11:47
--- NOTE | 2025-02-06 10:17 | ED.GENADUL1 ---
HPI HPI - General Adult General Chief complaint: Fall Stated complaint: FALL 02/03/2025; BACK & ABDOMINAL PAIN Time Seen by Provider: 02/06/25 10:12 Source: patient Mode of arrival: walk-in Limitations: no limitations History of Present Illness HPI narrative: 64-year-old female presents for head pain, neck pain, lower back pain, and abdominal pain. 3 days ago she slipped on mud and fell backwards and hit the back of her head. No LOC. Since then she has had pain in her lower back and her neck and her head. This morning she awoke with upper abdominal pain. She did not have pain in her abdomen until this morning. No constipation or diarrhea or injury to her abdomen. Related Data Home Medications ?Medication ?Instructions ?Recorded ?Confirmed budesonide 160 mcg-glycopyr 9 inh inhalation 02/06/25 mcg-formot 4.8 mcg/actuation HFA inhaler (Breztri Aerosphere) carvedilol 25 mg tablet mg 02/06/25 citalopram 40 mg tablet mg 02/06/25 ezetimibe 10 mg tablet mg 02/06/25 hydralazine 25 mg tablet mg 02/06/25 levothyroxine 137 mcg tablet mcg 02/06/25 levothyroxine 175 mcg tablet mcg 02/06/25 liothyronine 5 mcg tablet mcg 02/06/25 lisinopril 20 mg tablet mg 02/06/25 pantoprazole 40 mg tablet,delayed mg PO 02/06/25 release simvastatin 20 mg tablet mg 02/06/25 Allergies Allergy/AdvReac Type Severity Reaction Status Date / Time Penicillins Allergy Intermediate Anaphylaxis Verified 02/06/25 10:13 Opioid HPI Opioid Management Most Recent Opioid Data: Last Pain Scale 5 Today, 11:35 Last MAY Pain Assessment Today, 11:35 Review of Systems ROS Narrative A ten point review of systems is negative except as noted above. PFSH PFSH Social History Little interest or pleasure in doing things: not at all Feeling down, depressed, or hopeless: not at all Exam Narrative Exam Narrative: Nurses note and vital signs reviewed General:The patient appears well and in no apparent distress.Patient is resting comfortably on cart. Skin:Warm, dry, no pallor noted.There is no rash noted. Head:Normocephalic, atraumatic, no scalp hematoma or laceration. Cervical spine has no midline tenderness but some tenderness on the left side. Eye: Normal conjunctiva, no drainage Ears, Nose, Mouth, and Throat: oral mucosa is moist. Nares patent. Cardiovascular:Regular Rate and Rhythm Respiratory:Patient is in no distress, no accessory muscle use, lungs are clear to auscultation, no wheezing, rales or rhonchi Back: Diffuse tenderness in the lumbar area. No bruise or abrasion. No tenderness in the thoracic area GI: Tenderness across the upper abdomen without distention or mass or rebound or guarding. Musculoskeletal: The patient has no evidence of calf tenderness, no pitting edema, symmetrical pulses noted bilaterally Neurological:A&O, normal speech Psychiatric:Cooperative Constitutional Vital Signs, click to edit/add: Last Vital Signs Temp 97.7 F 02/06/25 10:07 Pulse 66 02/06/25 12:21 Resp 16 02/06/25 12:21 BP 212/85 H 02/06/25 13:32 Pulse Ox 97 02/06/25 12:21 Course Vital Signs Vital signs: Vital Signs Temperature 97.7 F 02/06/25 10:07 Pulse Rate 75 02/06/25 10:07 Respiratory Rate 18 02/06/25 10:07 Blood Pressure 228/113 H 02/06/25 10:07 Pulse Oximetry 98 02/06/25 10:07 Temperature 97.7 F 02/06/25 10:07 Pulse Rate 66 02/06/25 12:21 Respiratory Rate 16 02/06/25 12:21 Blood Pressure 212/85 H 02/06/25 13:32 Pulse Oximetry 97 02/06/25 12:21 Medical Decision Making [facility] Narrative Medical decision making narrative: Splenic infarction is identified. The cause is uncertain. This may or may not be related to the injury she had by falling onto her back 3 days ago. She has no history of thromboembolism and she did not have any abdominal trauma. I have spoken to the general surgeon at [facility] who requested the patient be transferred to tertiary care facility. Patient request [facility] and I have spoken to Dr. Mckinnon, general surgeon at [facility] who accepts the patient. I have also spoken to the emergency department physician Dr. Gomez. The patient is agreeable and stable for transfer. Findings are discussed thoroughly with the patient and her family. Differential Diagnosis Differential Diagnosis: Pancreatitis, hepatitis, gallbladder disease, intracranial hemorrhage Lab Data Lab results reviewed: Yes I reviewed the patient's lab results Labs: Lab Results 02/06/25 02/06/25 Range/Units 10:20 11:35 WBC 14.4 H (4.0-11.0) 10^3/uL RBC 4.26 (4.20-5.40) 10^6/uL Hgb 13.7 (12.0-16.0) g/dL Hct 39.5 (36.0-48.0) % MCV 92.7 (81.0-99.0) fL MCH 32.2 (26.7-34.0) pg MCHC 34.7 (29.9-35.2) g/dL RDW 12.8 (11.0-15.0) % Plt Count 189 (150-450) 10^3/uL MPV 11.8 (9.5-13.5) fL Neut % (Auto) 80.0 H (43.0-75.0) % Lymph % (Auto) 12.4 L (20.5-60.0) % [place] % (Auto) 6.5 (1.7-12.0) % Eos % (Auto) 0.3 L (0.9-7.0) % Baso % (Auto) 0.5 (0.2-2.0) % Neut # (Auto) 11.5 H (1.4-6.5) 10^3/uL Lymph # (Auto) 1.8 (1.2-3.8) 10^3/uL [place] # (Auto) 0.9 H (0.3-0.8) 10^3/uL Eos # (Auto) 0.1 (0.0-0.7) 10^3/uL Baso # (Auto) 0.1 (0.0-0.1) 10^3/uL Abs Immat Gran (auto) 0.05 H (0.00-0.03) 10^3/uL Imm/Tot Granulo (auto) 0.3 (0.0-0.5) % Sodium 136 (136-145) mmol/L Potassium 3.0 L (3.5-5.1) mmol/L Chloride 100 (98-107) mmol/L Carbon Dioxide 27.9 (21.0-32.0) mmol/L Anion Gap 11.1 BUN 15.0 (7.0-18.0) mg/dL Creatinine 1.50 H (0.55-1.02) mg/dL Est GFR ( Amer) 42 L (>=60 mL/min/1.73m^2) Est GFR (Non-Af Amer) 35 L (>=60 mL/min/1.73m^2) BUN/Creatinine Ratio 10.0 Glucose 149 H (74-106) mg/dL Calcium 9.1 (8.5-10.1) mg/dL Total Bilirubin 0.5 (0.2-1.0) mg/dL Direct Bilirubin 0.1 (0.0-0.2) mg/dL AST 15 (15-37) U/L ALT 16 (14-59) U/L Alkaline Phosphatase 157 H (46-116) U/L Total Protein 7.9 (6.4-8.2) g/dL Albumin 3.4 (3.4-5.0) g/dL Globulin 4.5 g/dL Albumin/Globulin Ratio 0.8 Amylase 91 (25-115) U/L Lipase 30.0 (16.0-77.0) U/L Urine Color Lt. yellow (YELLOW) Urine Clarity Clear (CLEAR) Urine pH 6.0 (5.0-9.0) Ur Specific [place] 1.020 (1.005-1.025) Urine Protein >=300 A (NEG/TRACE) mg/dL Urine Glucose (UA) Negative (NEGATIVE) mg/dL Urine Ketones Negative (NEGATIVE) mg/dL Urine Occult Blood Trace-i (NEGATIVE) Urine Nitrite Negative (NEGATIVE) Urine Bilirubin Negative (NEGATIVE) Urine Urobilinogen 0.2 (0.2-1.0) EU/dL Ur Leukocyte Esterase Negative (NEGATIVE) Urine RBC 0-2 (0-2) #/HPF Urine WBC 0-2 A (NONE SEEN) #/HPF Ur Squamous Epith Cells Rare (NONE/RARE) #/LPF Urine Crystals None seen (None Seen) #/HPF Urine Bacteria Trace A (NONE SEEN) #/HPF Urine Casts Seen A (NONE SEEN) #/LPF Hyaline Casts Rare Urine Mucus None seen (NONE SEEN) Ur Culture Indicated? No Imaging Data CT scan - abdomen: Radiologist's impression: ITS Impressions Abdomen/Pelvis CT 02/06/25 10:15 IMPRESSION: There is hypoenhancement along the anterior aspect of the spleen suggesting a splenic infarct. No acute traumatic injury. Additional chronic findings are noted as above. Impression dictated by: Ruslan Casarez M.D. 02/06/2025 11:59 AM Dictation Location: [facility]-24 Electronically authenticated by: [id number] Y Date: 02/06/2025 11:[address] 02/06/25 10:15 IMPRESSION: No acute intracranial pathology. Chronic age-related neurodegenerative changes are noted as above with remote lacunar infarcts in the right deep zarate nuclei and thalamus. No acute cervical spine injury. Mild degenerative changes are noted in the cervical spine as above. Impression dictated by: Ruslan Casarez M.D. 02/06/2025 11:47 AM Dictation Location: [facility]24 Electronically authenticated by: [id number] Y Date: 02/06/2025 11:[address] 02/06/25 10:15 IMPRESSION: No acute bony abnormality or malalignment. There is evidence of previous intervertebral fusion at L5-S1. Impression dictated by: Ruslan Casarez M.D. 02/06/2025 11:51 AM Dictation Location: [facility]24 Electronically authenticated by: [id number] Y Date: 02/06/2025 11:[address] 02/06/25 10:16 IMPRESSION: No acute intracranial pathology. Chronic age-related neurodegenerative changes are noted as above with remote lacunar infarcts in the right deep zarate nuclei and thalamus. No acute cervical spine injury. Mild degenerative changes are noted in the cervical spine as above. Impression dictated by: Ruslan Casarez M.D. 02/06/2025 11:47 AM Dictation Location: [facility]-24 Electronically authenticated by: [id number] Y Date: 02/06/2025 11:47 Discharge Plan Discharge Chief Complaint: Fall Clinical Impression: Splenic infarction Patient Disposition: [facility] Time of Disposition Decision: 14:01 Discharge Location: [facility] Mode of Transportation: EMS
[2025-02-06 10:40] LABS: Hematocrit 39.5 % (36.0-48.0); Hemoglobin 13.7 g/dL (12.0-16.0); Immature Granulocytes Abs Auto 0.05 10^3/uL (0.00-0.03); Immature Granulocytes Pct Auto 0.3 % (0.0-0.5); Lymphocytes Absolute Auto 1.8 10^3/uL (1.2-3.8); Mean Corpuscular HGB Conc 34.7 g/dL (29.9-35.2); Mean Corpuscular Hemoglobin 32.2 pg (26.7-34.0); Mean Corpuscular Volume 92.7 fL (81.0-99.0); Platelet Count 189 10^3/uL (150-450); Red Blood Count 4.26 10^6/uL (4.20-5.40); White Blood Count 14.4 10^3/uL (4.0-11.0)
[2025-02-06 10:53] LABS: Anion Gap 11.1; Blood Urea Nitrogen 15.0 mg/dL (7.0-18.0); Calcium 9.1 mg/dL (8.5-10.1); Carbon Dioxide 27.9 mmol/L (21.0-32.0); Chloride 100 mmol/L (98-107); Estimated GFR (African America 42 (>=60 mL/min/1.73m^2); Estimated GFR (Non-African Ame 35 (>=60 mL/min/1.73m^2); Glucose 149 mg/dL (74-106); Potassium 3.0 mmol/L (3.5-5.1); Sodium 136 mmol/L (136-145)
[2025-02-06 11:05] LABS: Alanine Aminotransferase 16 U/L (14-59); Albumin Globulin Ratio 0.8; Albumin Level 3.4 g/dL (3.4-5.0); Alkaline Phosphatase 157 U/L (46-116); Amylase 91 U/L (25-115); Aspartate Amino Transferase 15 U/L (15-37); Globulin 4.5 g/dL; Lipase 30.0 U/L (16.0-77.0); Total Protein 7.9 g/dL (6.4-8.2)
--- OUTSIDE RECORDS SUMMARY | 2025-02-06 11:19 | XMS_ITS | CCD ---
Author Organization [facility] Care Team Providers Care Cloth Laminating Supervisor Name Role Phone PHYSICIAN, DEFAULT Unavailable [...] Unavailable HOY ., DR BHAKTA Consulting Unavailable ADDISON, DR MICHAEL Turcios Consulting Unavailable HOY ., DR BHAKTA Admitting Unavailable HOY ., DR BHAKTA Attending Unavailable HOY ., DR BHAKTA Primary Care Unavailable HOY ., DR BHAKTA Consulting Unavailable ZIEBER, DR ALEX Palma Consulting Unavailable Yony Teague MD Primary Care Provider [phone] Kerwin Andrade MD Attending Provider [phone] IVAN MATA Attending Unavailable ELTAHAWY, LAURIE Attending Unavailable Allergies Allergy ClassificationReported Allergen(s)Allergy TypeDate of OnsetReaction(s) FacilityAcetaminophen (1 source)AcetaminophenDrug Cgtdslk81-24-8160PmyzkhyjBikplqyanMercy Health Kings Mills HospitalOpioid Agonists (1 source)PropoxypheneDrug Kpmjejr20-98-3045ZgjyrmniXeajtwozdNationwide Children's HospitalPenicillins (antibiotic) (1 source)PenicillinsDrug Fokgsno27-24-2342EhvdgGmzdgvubpOhioHealth Mansfield Hospital (1 source)acetaminophen / propoxyphene; Translations: [Darvocet]Drug Allergy 96-33-8530[facility] (5 sources)Penicillins; Translations: [PENICILLINS]Drug allergy (disorder) 16-22-3950P[facility], HivesThe [facility] (1 source)Darvocet-N 100Drug allergy (disorder)77-55-2734XegCommunity [facility] (2 sources)AcetaminophenDrug Iddmwaf64-70-6560IzwcuwfnLxdqpcczvMercy Health [facility] Hospital (2 sources)PropoxypheneDrug Nwkupqg99-70-1260NnaxnavhKmscogcbfMercy Health Kings Mills Hospital (1 source)PROPOXYPHENE N-ACETAMINOPHEN; Translations: [PROPOXYPHENE N-ACETAMINOPHEN]Propensity to adverse reactions to drug (disorder)02-27-2014 [facility] Medications Current Medications MedicationDrug Class(es)DatesSig (Normalized)Sig (Original)aspirin 81 mg delayed release oral tablet (3 sources)Platelet Aggregation Inhibitor, Nonsteroidal Anti-inflammatory Drug Start: 91-10-8668fteo 1 tablet by mouth once dailyAspirin 81 [...] 25 mg oral tablet (3 sources)Thiazide-like DiureticStart: 05-96-0923rcme 1 tablet by mouth once dailyChlorthalidone 25 mg tablet Active 25 MG PO Daily August 30, 2023 12:00am Complies with drug therapycitalopram 40 mg oral tablet (4 sources)Serotonin Reuptake InhibitorStart: 47-45-2501Dtgswswmwv 40 mg tablet Active 40 MG PO February 14, 2024 1:00am Complies with drug therapyStart: 08-30-2023 End: 14-15-8720xkfz 1 tablet by mouth once dailyCitalopram 20 mg tablet Discontinued 20 MG PO Daily August 30, 2023 12:00am February 14, 2024 1:05pm ergocalciferol 1.25 mg oral capsule (3 sources)Provitamin D2 CompoundStart: 68-14-6791oogo 1 capsule by mouth every weekErgocalciferol (Vitamin D2) 1,250 mcg (50,000 unit) capsule Active 0 .ROUTE .COMPLEX February 12, 2024 3:39pm TAKE 1 CAPSULE BY MOUTH EVERY WEEK Complies with drug therapyStart: 10-04-2023 End: 51-06-4286jcab 1 capsule by mouth every weekErgocalciferol (Vitamin D2) 1,250 mcg (50,000 unit) capsule Discontinued 1250 MCG PO every week October 04, 2023 12:00am February 12, 2024 3:39pmezetimibe 10 mg oral tablet (3 sources)Dietary Cholesterol Absorption InhibitorStart: 47-34-2572qjvz 1 tablet by mouth once dailyEzetimibe 10 mg tablet Active 10 MG PO Daily August 30, 2023 12:00am Complies with drug pboiyqv14 hr isosorbide mononitrate 30 mg extended release oral tablet (3 sources)Nitrate VasodilatorStart: 08-67-8513jgsf 1 tablet by mouth once daily, then take 1 tablet by mouth every twenty-four hoursIsosorbide Mononitrate 30 mg tablet extended release 24 hr Active 30 MG PO Daily August 30, 2023 12: 00am Complies with drug therapylevothyroxine sodium 0.175 mg oral tablet (3 sources)l-ThyroxineStart: 87-05-2565esev 1 tablet by mouth once daily Levothyroxine 175 mcg tablet Active 175 MCG PO Daily August 30, 2023 12:00am Complies with drug therapypantoprazole 40 mg delayed release oral tablet (2 sources)Proton Pump InhibitorStart: 70-96-8576jqqs 1 tablet by mouth once Pantoprazole 40 mg tablet,delayed release (DR/EC) Active 40 MG PO Once September 11, 2024 10:31am Complies with drug therapyStart: 02-14-2024 End: 48-26-4447Ebxutnwmvwkj 40 mg tablet,delayed release (DR/EC) Discontinued MG PO February 14, 2024 1:00am 2024 10:32amsimvastatin 20 mg oral tablet (4 sources)HMG-CoA Reductase InhibitorStart: 34-63-6429drqh 1 tablet by mouth once dailySimvastatin 20 mg tablet Active 20 MG PO Daily February 14, 2024 1:00am Complies with drug therapyStart: 08-30-2023 End: 25-36-6363wakn 1 tablet by mouth once dailySimvastatin 40 mg tablet Discontinued 40 MG PO Daily August 30, 2023 12:00am February 14, 2024 1:06pm spironolactone 25 mg oral tablet (3 sources)Aldosterone AntagonistStart: 71-02-5506udef 1 tablet by mouth once dailySpironolactone 25 mg tablet Active 25 MG PO Daily August 30, 2023 12:00am Complies with drug therapy Completed/Discontinued Medications MedicationDrug Class(es)DatesSig (Normalized)Sig (Original)cefdinir 300 mg oral capsule (1 source)Cephalosporin AntibacterialStart: 02-14-2024 End: 61-95-1684ebbz 2 capsules by mouth once dailyCefdinir 300 mg capsule Discontinued 600 MG PO Daily February 14, 2024 1:00am September 11, 2024 10:30am diclofenac sodium 75 mg delayed release oral tablet (3 sources)Nonsteroidal Anti-inflammatory DrugStart: 08-30-2023 End: 78-09-6498oqjf 1 tablet by mouth twice dailyDiclofenac Sodium 75 mg tablet,delayed release (DR/EC) Discontinued 75 MG PO Twice daily August 12:00am October 04, 2023 11:12amlisinopril 20 mg oral tablet (3 sources)Angiotensin Converting Enzyme InhibitorStart: 08-30-2023 End: 94-78-1791ezfd 1 tablet by mouth once dailyLisinopril 20 mg tablet Discontinued 20 MG PO Daily August 30, 2023 12:00am August 30, 2023 3:59pm magnesium oxide 400 mg oral tablet (3 sources)Start: 10-04-2023 End: 44-66-9422rzby 1 tablet by mouth once dailyMagnesium Oxide 400 mg (241.3 mg magnesium) tablet Discontinued 400 MG PO Daily 90 February 14, 2024 1:00am September 11, 2024 10:31am Problems Active Problems Problem ClassificationProblemDateDocumented DateEpisodic/ChronicChronic kidney disease (7 sources)Chronic kidney disease stage 3; Translations: [Stage 3 chronic kidney disease]99-37-1955WeksxqnNudfdtj kidney disease (2 sources)Chronic kidney disease; Translations: [Chronic kidney disease, stage 3b]Onset: 95-93-2569Yabeooj obstructive pulmonary disease and bronchiectasis (1 source)Chronic obstructive pulmonary disease, unspecified; Translations: [COPD UNSPECIFIED]Onset: 95-58-0593TbvunyvAroybulk atherosclerosis and other heart disease (9 sources)Coronary arteriosclerosis; Translations: [Atherosclerotic heart disease of [place] coronary artery without angina pectoris]Onset: 03-20-2022 95-56-9482LhzcxijZfamrcct atherosclerosis and other heart disease (1 source)Presence of coronary angioplasty implant and graft; Translations: [PRESENCE COR ANGPLSTY IMPLANT AND GRAFT]Onset: 41-67-2360YvzaotqhEgruipyo mellitus with complications (1 source)Type 2 diabetes mellitus with diabetic neuropathy, unspecified; Translations: [TYPE 2 DM W/DIABETICNEUROPATHY UNS]Onset: 10-96-6674Fyialdw Diabetes mellitus without complication (1 source)Type 2 diabetes mellitus without complications; Translations: [TYPE 2 DM WITHOUT COMPLICATIONS]Onset: 86-81-8098CniluaxHfznjynvh of lipid metabolism (9 sources)Hyperlipidemia; Translations: [Hyperlipidemia, unspecified]Onset: 657648-60-0473MnxunpmDgqtlahij hypertension (6 sources)Essential (primary) hypertension; Translations: [ESSENTIAL PRIMARY HYPERTENSION]Onset: 89-24-5312YsjvajnAjscc valve disorders (2 sources)Nonrheumatic mitral (valve) insufficiency; Translations: [Nonrheumatic mitral (valve) insufficiency]Onset: 85-90-8784ElphzniNicbdcmfvyki with complications and secondary hypertension (7 sources)Chronic kidney disease due to hypertension; Translations: [Hypertensive chronic kidney disease withstage 1 through stage 4 chronic kidney disease, or unspecified chronic kidney disease]50-52-9849BstcygaQcwqyst and fatigue (1 source)Chronic fatigue, unspecified; Translations: [CHRONIC FATIGUE UNSPECIFIED]Onset: 35-29-2895TstgixcTqoepjydrv disorders (1 source)Hormone replacement therapy; Translations: [HORMONE REPLACEMENT THERAPY]Onset: 00-71-0916YwoffvwoBygggylu sclerosis (5 sources)Multiple sclerosis; Translations: [MULTIPLE SCLEROSIS]Onset: 68-64-1479YjpuudtOmugbatmm of unspecified nature or uncertain behavior (4 sources)Monoclonal gammopathy of uncertain significance; Translations: [Monoclonal gammopathy]46-84-0165AtpxppkDkvdo aftercare (1 source)halfway (current) use of aspirin; Translations: [CHCF CURRENT USE OF ASPIRIN]Onset: 64-89-3136AdhkzdloQzmoh aftercare (1 source)Other terminal supervisor (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; Translations: [OTH FIELD SERVICE REPRESENTATIVE CURRENT DRUG THERAPY]Onset: 88-41-7299PzmoyrnoQjjxd diseases of kidney and ureters (4 sources)Secondary hyperparathyroidism; Translations: [Secondary hyperparathyroidism of renal origin]33-28-4136VoikuhkJxovk diseases of kidney and ureters (3 sources)Secondary hyperparathyroidism of renal origin; Translations: [Secondary hyperparathyroidism (of renal origin)]32-02-0190BjozmkxCrtxf nutritional; endocrine; and metabolic disorders (1 source)Obesity, unspecified; Translations: [OBESITY UNSPECIFIED]Onset: 26-04-6433WypgfgbWyssk nutritional; endocrine; and metabolic disorders (3 sources)Hypomagnesemia; Translations: [Hypomagnesemia]51-08-1963DagjmorXhgxh nutritional; endocrine; and metabolic disorders (1 source)Hypomagnesemia; Translations: [Disorders of magnesium metabolism] 88-90-4989WitmpegTuwqw nutritional; endocrine; and metabolic disorders (1 source)Body mass index (BMI) 25.0-25.9, adult; Translations: [BODY MASS INDEX BMI 25.0-25.9 ADULT]Onset: 77-86-9803QqopspesCjhpe nutritional; endocrine; and metabolic disorders (3 sources)Hyperuricemia; Translations: [Hyperuricemia without signs of inflammatory arthritis and tophaceous disease]64-21-8120GioutavgHtpwx nutritional; endocrine; and metabolic disorders (1 source)Hyperuricemia without signs of inflammatory arthritis and tophaceous disease; Translations: [Other abnormal blood chemistry]60-79-2735LtyrtzkkIuszr upper respiratory infections (1 source)Acute upper respiratory infection, unspecified; Translations: [ACUTE UP RESPIRATORY INFECTION UNS]Onset: 10-32-9720QwhsswvxSpjfjfdv codes; unclassified (1 source)Acquired absence of other specified parts of digestive tract; Translations: [ACQ ABSENCE OTH PART DIGESTV TRACT]Onset: 07-75-5633Bdgtqywk Residual codes; unclassified (1 source)Acquired absence of both cervix and uterus; Translations: [ACQUIRED ABSENCE BOTH CERVIX AND UTERUS]Onset: 38-72-9268VmhsnuwrCliqsizsl-related disorders (5 sources)Nicotine dependence, cigarettes, uncomplicated; Translations: [NICOTINE DEPEND CIGARETTES UNCOMP]Onset: 37-05-3333SgwjyvtIqahcoy disorders (5 sources)Hypothyroidism, unspecified; Translations: [HYPOTHYROIDISM UNSPECIFIED]Onset: 78-44-7007ZesetrnMvamyuzpotvl (2 sources)COUGH, UNSPECIFIED; Translations: [COUGH, UNSPECIFIED]Onset: 07-20-2022 Past or Other Problems Problem ClassificationProblemDateDocumented DateEpisodic/ChronicNonspecific chest pain (4 sources)Chest pain, unspecified; Translations: [CHEST PAIN UNSPECIFIED]Onset: 29-87-3843NppubtrbZvyezhyakkzj (1 source)COUGH, UNSPECIFIED; Translations: [COUGH, UNSPECIFIED]Onset: 07-19-2022 Results Test NameValueInterpretationReference RangeFacilityOffice Visiton 11-13-2024 Follow-up [id number] Deepthi Pantoja 1960 F Date Provider Department Center 11/13/2024 166-IVAN MATA CARD [facility] Family History Problem Relation Age of Onset Heart failure Mother Diabetes Mother Dementia Mother Other Father Family Status - Relation Status Age at Mother Father Level of Service:22651 [place] OFFICE/OUTPATIENT ESTABLISHED MOD MDM 30 MIN Reason for Visit and Comments: Coronary Artery Disease [187] - Denies chest pain but says she gets a poke every once in awhile. Hyperlipidemia [182] - Lipid panel drawn in June 2024. Hasn't been taking simvastatin and she doesn't know why. Hypertension [360900] - Renal US in June 2024, and routine labs drawn [address] Teague started her on lisinopril a few months ago. Valve Disorder [3372] - Had echo in Dec 2023 after last apt. Feels palpitations sometimes, doesn't last long . Shortness of Breath [483561] - With exerionNormalUniversity St. [facility] CampusOffice Visiton 68-22-4125Wjbchb-up [id number] Deepthi Pantoja 1960 F Date Provider Department Center 12/03/2023 271-LAURIE ROB CARD [facility] Family History Problem Relation Age of Onset Heart failure Mother Diabetes Mother Dementia Mother Other Father Family Status - Relation Status Age at Mother Father Level of Service:50823 [place] OFFICE/OUTPATIENT ESTABLISHED MOD MDM 30 [facility]Album[facility] [Mass/volume] in Serum or Plasmaon 37-21-2475Vypkbld [Mass/Vol]3.8 g/dL2.9-4.4FKettering Health Miamisburg Centriole Ab IF (S) [Titer]on 51-60-3478Fdmc-Nuclear Ab Centriole PatternTNP. [facility] CantonCentromere Ab IF (S) [Titer]on 04-88-1754Wtdx- Nuclear Ab Centromere PatternTNP.[facility] CantonErythrocyte distribution width Auto (RBC) [Ratio]on 18-79-1377Taoyvyeytxr distribution width (RBC) [Ratio]13.7 %11.0-15.0[facility] CantonEstimated glomerular filtration rate (GFR) non- Americanon 54-90-6808QJO/1.73 sq M.predicted among non-blacks MDRD (S/P/Bld) [Vol rate/Area]31 mL/min/{1.73_m2} Low>=60[facility] CantonHematocrit Auto (Bld) [Volume fraction] on 55-96-8012Blfqxhjvoa (Bld) [Volume fraction]38.8 %36.0-48.0[facility] CantonHemoglobin [Mass/volume] in Bloodon 90-78-6456Jbcgwzklvj (Bld) [Mass/Vol]13.1 g/dL12.0-16.0[facility] CantonHomogenous nuclear Ab pattern (S) [Titer]on 12-09-2755Rvzd-Nuclear Ab Homogeneous PatternTNP. [facility] CantonIgA [Mass/volume] in Serum or Plasmaon 80-69-7799CyT [Mass/Vol]332 mg/qS17-769XorreewvrSelect Medical Specialty Hospital - CantonIgG [Mass/volume] in Serum or Plasmaon 91-05-6590KsU [Mass/Vol]1291 mg/pQ570-9373 [facility] CantonIgM [Mass/volume] in Serum or Plasmaon 00-97-2891YgK [Mass/Vol]206 mg/gG25-445RngdvvjdrSelect Medical Specialty Hospital [facility] Canton Immunofixation for Urineon 80-31-7982Rpwuednfkftjwb Immunofixation (U) [Interp] Comment:.[facility] - CantonComment on above:Presence of monoclonal protein is unclear at this time. Suggestrepeat in 3 to 6 months if clinically indicated.Performed at: [facility] [place], [place] [id number] Director: Lex Munguia PhD, Phone: [phone] light chains.kappa.free [Mass/volume] in Serumon 99-56-5940Ltkikrtmmeuzox light chains.kappa.free (S) [Mass/Vol]54.2 mg/LAbnormal3.3-19.4FKettering Health MiamisburgImmunoglobulin light chains.kappa.free/Immunoglobulin light chains.lambda.free [Rayray 38-52-5664Xmkqtmcwlgkrog light chains.kappa.free/Immunoglobulin light chains.lambda.free (S) [Mass ratio]1.00 0.26-1.65[facility] CantonComment on above:Performed at: [facility] [place], [place] [id number] Director: Lex Munguia PhD, Phone: [phone] light chains.lambda.free [Mass/volume] in Serum or Plasmaon 39-11-5465Pzphjlasacnudk light chains.lambda.free [Mass/Vol]54.3 mg/LAbnormal5.7-26.3FKettering Health MiamisburgLaboratory - Chemistry and Chemistry - challengeon 75-45-6658Nqkhlst [Mass/Vol]3.6 g/dL3.4-5.0[facility] CantonCalcium [Mass/Vol]9.2 mg/dL8.5-10.1FKettering Health MiamisburgChloride [Moles/Vol]101 mmol/L 98-107[facility] CantonCO2 [Moles/Vol]27.2 mmol/L21.0-32.0 [facility] CantonCreatinine [Mass/Vol]1.68 mg/dLHigh0.55-1.02 [facility] CantonGFR/1.73 sq M.predicted MDRD (S/P/Bld) [Vol rate/Area]37 mL/min/{1.73_m2}Low>=60[facility] CantonGlucose [Mass/Vol]125 mg/eGMluh14-288NszfkkiixSelect Medical Specialty Hospital - CantonMagnesium [Mass/Vol]1.6 mg/dLLow1.8-2.4FKettering Health MiamisburgPotassium [Moles/Vol]4.5 mmol/L3.5-5.1FKettering Health MiamisburgProtein [Mass/Vol] 0.3 g/dLAbnormalNot ObservedWyandot Memorial Hospitalodium [Moles/Vol] 138 mmol/O357-027ZapxtewwxSelect Medical Specialty Hospital - CantonUrate [Mass/Vol]6.5 mg/dLHigh 2.6-6.0[facility] CantonUrea nitrogen [Mass/Vol]21.0 mg/dLHigh 7.0-18.0[facility] CantonUrea nitrogen/Creatinine [Mass ratio] 12.5 mg/mgSelect Medical Specialty Hospital - CantonBilirubin Ql (U)NegativeNEGATIVE [facility] CantonGlucose (U) [Mass/Vol]NegativeNEGATIVESelect Medical Specialty Hospital - CantonKetones Ql (U)NegativeNEGATIVESelect Medical Specialty Hospital - CantonpH (U)6.0 [pH]5.0-9.0Wyandot Memorial Hospitalpecific gravity (U) [Rel density]1.0251.005-1.025[facility] CantonUrobilinogen Qn (U)1.0 {Samira'U}/dL0.2-1.0[facility] CantonLaboratory - Specimen informationon 93-36-0399Gfwczudwvu (U)CLEARCLEARFKettering Health MiamisburgColor (U)LT. YELLOWYELLOWSelect Medical Specialty Hospital - Canton Laboratory - Urinalysison 90-80-7408Eewyhulez esterase Test strip Ql (U)Negative NEGATIVESelect Medical Specialty Hospital - CantonMucus Ql (Urine sed)TRACEAbnormalNONE SEENSelect Medical Specialty Hospital - CantonNitrite Ql (U)NegativeNEGATIVESelect Medical Specialty Hospital - CantonProtein (U) [Mass/Vol]54.6 mg/dLHigh<=11.9[facility] CantonProtein Ql (U)30 mg/dLAbnormalNEG/TRACESelect Medical Specialty Hospital - CantonLeukocytes [#/volume] corrected for nucleated erythrocytes in Blood by Automated counon 2073OUM corrected for nucl RBC Auto (Bld) [#/Vol]7.7 10 3/uL4.0-11.0Wyandot Memorial HospitalH Auto (RBC) [Entitic mass]on 31-81-3734HVH (RBC) [Entitic mass]30.8 pg26.7-34.0[facility] CantonMCHC Auto (RBC) [Mass/Vol]on 38-15-5028KJQM (RBC) [Mass/Vol]33.8 g/dL29.9-35.2FCleveland Clinic FoundationV Auto (RBC) [Entitic vol]on 28-96-8076FUX (RBC) [Entitic vol]91.1 fL81.0-99.0[facility] CantonMidbody Ab IF (S) [Titer]on 28-02-5268Mzdn-Nuclear Ab Midbody PatternTNP.[facility] CantonMitotic spindle apparatus Ab IF [Titer]on 07-31-9927LUG Spindle Apparatus PatternTNP.[facility] CantonMyeloperoxidase Ab [Units/volume] in Serum by Immunoassayon 65-13-9389Ygcevzzeauicowu Ab IA Qn (S)<0.2 units0.0-0.9[facility] CantonNo Panel Informationon 47-97-663122169710-Iutwioa Vitamin D Total21.8 ng/mLSelect Medical Specialty Hospital - CantonComment on above:<20 ng/mL Vit D ejaaugecs16-<30 ng/mL Vit D mpadkjimvajw20-572 ng/mL Vit D sufficient>100 ng/mL Potential ToxicityAnti-Nuclear Antibody Comment 2Comment.[facility] - CantonComment on above:Pattern Potential Disease Association Homo geneous Systemic Lupus Erythematosus, Drug Induced Systemic Lupus Erythematosus, Chronic Autoimmunehepatitis, Juvenile Idiopathic Arthritis Speckled Sjogren Syndrome, Systemic Lupus Erythematosus, Subacute Cutaneous Lupus, Lupus, Congenital Heart Block, Mixed Connective Tissue Disease, Scleroderma-diffuse, Scleroderma- Autoimmune Myositis Overlap Syndrome, Systemic Lupus Pvasdcuxatczq-Xlcuprekmdc-Koiqosirgr Myositis Overlap Syndrome, Systemic Autoimmune Rheumatic Disease, [...] Scleroderma, Antiphospholipid Syndrome Performed at: - [facility] [address] [place], [place] [id number] Director: Lex Munguia PhD, Phone: [phone] Potential Disease Association Homo geneous Systemic Lupus Erythematosus, Drug Induced Systemic Lupus Erythematosus, Chronic Autoimmunehepatitis, Juvenile Idiopathic Arthritis Speckled Sjogren Syndrome, Systemic Lupus Erythematosus, Subacute Cutaneous Lupus, Lupus, Congenital Heart Block, Mixed Connective Tissue Disease, Scleroderma-diffuse, Scleroderma- Autoimmune Myositis Overlap Syndrome, Systemic Lupus Bbezdnecrrnfm-Lsxplogqkbb-Nwysdphubz Myositis Overlap Syndrome, Systemic Autoimmune Rheumatic Disease, [...] Cytopenias, Linear Scleroderma, Antiphospholipid Syndrome Performed at: [facility]TubeNewton [facility] CenterLdoluu[address] [place] [id number] Director: Lex Munguia PhD, Phone: [phone] p-ANCA<1:20 titerNeg:<1:20[facility] CantonComment on above:The atypical pANCA pattern has been observed in asignificant percentage of patients with ulcerativecolitis,primary sclerosing cholangitis and autoimmune hepatitis.Performed at: [facility] [id number] Director: Sam Tolbert MD, Phone: [phone] at: [facility]ationTubeNewton Medical CenterQdbeyq[address] [place] [id number] Director: Lex Munguia PhD, Phone: [phone] Hormone (Intact)98 pg/tJLjccookk51-38VxknnejdlSelect Medical Specialty Hospital - CantonComment on above:Performed at: [employer] [address] [place], [place] [id number] Director: Lex Munguia PhD, Phone: [phone] ANCA (p-ANCA) Antibody<1:20 titerNeg:<1:20[facility] CantonComment on above:The presence of positive fluorescence exhibiting P-ANCA orC-ANCA patterns alone is not specific forthe diagnosis ofWegener's Granulomatosis (WG) or microscopic polyangiitis.Decisions about treatmentshould not be based solely onANCA IFA results. The International ANCA Group Consensusrecommends follow up testing of positive sera with both WA-3 and MPO-ANCA enzyme immunoassays. As many as 5% serumsamples are positive only by EIA. Ref. AM J Clin Yvjpqa5112;111:507-513.Phosphorus Level3.9 mg/dL2.6-4.7FKettering Health MiamisburgProtein Electrophoresis NoteComment.[facility] CantonComment on above:Protein electrophoresis scan will follow via computer,mail, or call or contact centre manager delivery.Urine BacteriaTRACE #/HPFAbnormalNONE SEEN [facility] CantonUrine Culture ReflexedBrecksville VA / Crille HospitalUrine Occult BloodNegativeNEGATIVESelect Medical Specialty Hospital - CantonUrine Other CastsNONE SEEN #/LPFNONE [facility] Urine Other CrystalsNone Seen #/HPFNone [facility] Urine Random Ewvceeywyc812.59 mg/dL20.00-300.00[facility] Urine RBC0-2 #/HPF0-2FKettering Health MiamisburgUrine Squamous Epithelial CellsFEW #/LPFAbnormalNONE/RARESelect Medical Specialty Hospital - CantonUrine Transitional Epithelial CellsRARE #/LPFAbnormalNONE [facility] HospitalUrine WBC0-2 #/HPFAbnormalNONE [facility] HospitalNuclear Ab (S) [Titer]on 80-88-1091Pqoj-Nuclear Antibody ScreenPositive Abnormal.[facility] CantonComment on above:Negative <1:80 Borderline 1:80 Positive >1:80Negative <1:80 Borderline 1:80 Positive >1:80 Nuclear dots nuclear Ab pattern IF (S) [Titer]on 71-52-7479Iqcg-Nuclear Ab Nuclear Dot PatternTNP.[facility] Medical CenterNuclear membrane pores nuclear Ab pattern IF (S) [Titer]on 77-26-8073RSP Nuclear Membrane PatternTNP. [facility] - CantonNucleolar nuclear Ab pattern (S) [Titer]on 53-22-3264Jsmc-Nuclear Ab Nucleolar Pattern1:160Abnormal.[facility] - CantonComment on above:ICAP nomenclature: AC-8,9,10ICAP nomenclature: AC-8,9,10PCNA extractable nuclear Ab IF (S) [Titer]on 52-61-5664Teuh-Nuclear Ab PCNA PatternTNP.[facility] Hospital - CantonPlatelet mean volume Auto (Bld) [Entitic vol]on 84-71-7771Yogqngto mean volume (Bld) [Entitic vol]11.9 fL 9.5-13.5FKettering Health MiamisburgPlatelets Auto (Bld) [#/Vol]on 91-64-2940Bvdgzvezh (Bld) [#/Vol]215 10 3/nJ767-381QkcjqubwfSelect Medical Specialty Hospital - CantonProtein [Mass/volume] in Serum or Plasmaon 93-44-4244Pboxiqr [Mass/Vol]7.6 g/dL6.0-8.5FKettering Health MiamisburgProteinase 3 Ab [Units/volume] in Serum by Immunoassayon 79-72-3529Caedawenyz 3 Ab IA Qn (S)<0.2 units0.0-0.9 [facility]onRBC Auto (Bld) [#/Vol]on 48-76-9756PDV (Bld) [#/Vol]4.26 10 6/uL4.20-5.40[facility] Hospitalerum classic neutrophil cytoplasmic antibody titer by immunofluorescenceon 09-25-2023 Neutrophil cytoplasmic Ab.classic IF (S) [Titer]<1:20 titerNeg:<1:20[facility] Hospitalerum globulin measurement (mass/volume)on 09-25-2023 Globulin (S) [Mass/Vol]3.8 g/dL2.2-3.9[facility] Hospitalerum or plasma albumin/globulin mass ratioon 10-01-1442Uoeajhj/Globulin [Mass ratio]1.1 {ratio}0.7-1.7FKeenan Private Hospitalerum or plasma alpha 1 globulin measurement by electrophoresis (mass/volume)on 08-49-4963Iwmzj 1 globulin Elph [Mass/Vol]0.3 g/dL0.0-0.4FKeenan Private Hospitalerum or plasma alpha 2 globulin measurement by electrophoresis (mass/volume)on 14-22-3021Hsypi 2 globulin Elph [Mass/Vol]1.0 g/dL0.4-1.0[facility] Hospitalerum or plasma anion gap determinationon 96-71-4733Axhjs gap [Moles/Vol]14.3 mmol/L [facility] Hospitalerum or plasma beta globulin measurement by electrophoresis (mass/volume)on 47-66-1256Fajw globulin Elph [Mass/Vol]1.2 g/dL 0.7-1.3FKeenan Private Hospitalerum or plasma gamma globulin measurement by electrophoresis (mass/volume)on 12-90-6941Kkvir globulin Elph [Mass/Vol]1.4 g/dL0.4-1.8[facility] Hospitalerum or plasma immunoelectrophoresis interpretationon 41-88-3132Qeezbnevkighmm IEP [Interp] CommentAbnormal.[facility] CantonComment on above:Immunofixation shows IgG monoclonal protein with lambdalight chain specificity.Speckled nuclear Ab pattern (S) [Titer]on 96-25-6750Ylqi-Nuclear Ab Speckled Pattern1:320 Abnormal.[facility] CantonComment on above:ICAP nomenclature: AC-2,4,5,29ICAP nomenclature: AC-2,4,5,29Urine protein/creatinine ratioon 87-55-8893Vsbhzpr/Creatinine (U) [Ratio]0.39[facility] GROUP A STREP CULTUREon 07-19-2022S. pyogenes Ag Ql (Unsp spec)Culture Observations: NEGATIVE FOR GROUP A STREPTOCOCCUS.NormalThe [facility] HospitalComment on above: Performed By: #### SSCRN, GRASTCX ####[facility] [address] [place], [place] [address]Ge. Marbella ChangSTREPT SCREENon 03-88-6996KMYKA SCREEN ANegativeNormalNEGATIVEThe [facility] HospitalComment on above:Performed By: #### SSCRN, GRASTCX ####[facility] [address] [address]Dr. Marbella JefferyXR CHEST 2 Von 61-01-6036VC CHEST 2 VEXAMINATION: XR CHEST 2 V [...] Electronically authenticated by: ALEX LEWIS Date: 2022-07-19 10:18NoG[facility] AUTO DIFFon 09-01-6317HIXR #0.1 103/ulNormal0.0-0.1[facility] HospitalComment on above:Performed By: #### CBC #### [facility] [address] [place] [address] Dr. Marbella JefferyBasophils/100 WBC (Bld)0.7 %Normal0.2-2.0[facility] Comment on above:Performed By: #### CBC #### [facility] [address] [place] [address] Dr. Marbella Smith #0.2 103/ulNormal0.0-0.7The [facility] HospitalComment on above: Performed By: #### CBC #### [facility] [address] [address] [address] Marbella Goosinophils/100 WBC (Bld)1.8 %Normal0.9-7.0[facility] Comment on above:Performed By: #### CBC #### [facility] [address] [address] [address] Marbella Gorythrocyte distribution width (RBC) [Ratio]13.5 %Briqjl36.0-15.0 The [facility] HospitalComment on above:Performed By: #### CBC #### [facility] [address] [place] [address] Dr. Yilan ChangHematocrit (Bld) [Volume fraction]35.2 %Critically low36.0-48.0 The [facility] HospitalComment on above:Performed By: #### CBC #### [facility] [address] [place] [address] Dr. Marbella JefferyHemoglobin (Bld) [Mass/Vol]11.8 g/dLCritically low12.0-16.0The [facility] HospitalComment on above:Performed By: #### CBC #### [facility] [address] [place] [address] Dr. Marbella JefferyIG #0.02 10e3/ulNormal0.00-0.03The [facility] HospitalComment on above:Performed By: #### CBC #### [facility] [address] [place] [address] Dr. Marbella JefferyIG %0.2 %Normal0.0-0.5The [facility] HospitalComment on above: Performed By: #### CBC #### [facility] [address] [place] [address] Dr. Marbella Murcia #2.2 103/ulNormal1.2-3.8The [facility] HospitalComment on above:Performed By: #### CBC #### [facility] [address] [place] [address] Dr. Marbella Donahuemphocytes/100 WBC (Bld)25.2 %Kstucy86.5-60.0The [facility] HospitalComment on above:Performed By: #### CBC #### [facility] [address] [place] [address] Dr. Marbella ContrerasUAL DIFF REQNONormalThe [facility] HospitalComment on above: Performed By: #### CBC #### [facility] [address] [place] [address] Dr. Marbella Eric (RBC) [Entitic mass]30.3 ndNhxizc66.7-34.0The [facility] HospitalComment on above:Performed By: #### CBC #### [facility] [address] [place] [address] Dr. Marbella Almaraz (RBC) [Mass/Vol]33.5 g/uFNemjoz00.9-35.2The [facility] HospitalComment on above:Performed By: #### CBC #### [facility] [address] [address] [address] Marbella AlmarazV (RBC) [Entitic vol]90.3 cEUbrutf45.0-99.0The [facility] HospitalComment on above:Performed By: #### CBC #### [facility] [address] [place] [address] Dr. Marbella Rodriguez #0.8 103/ulNormal0.3-0.8The [facility] HospitalComment on above:Performed By: #### CBC #### [facility] [address] [place] [address] Dr. Marbella Solitarioocytes/100 WBC (Bld)9.2 %Normal1.7-12.0The [facility] Comment on above:Performed By: #### CBC #### [facility] [address] [place] [address] Dr. Marbella Hill #5.5 103/ulNormal1.4-6.5The [facility] HospitalComment on above:Performed By: #### CBC #### [facility] [address] [place] [address] Dr. Marbella Albertutrophils/100 WBC (Bld)62.9 %Rzgrci58.0-75.0The [facility] HospitalComment on above:Performed By: #### CBC #### [facility] [address] [place] [address] Dr. Marbella Canaleslet mean volume (Bld) [Entitic vol]11.2 fLNormal9.5-13.5The [facility] HospitalComment on above:Performed By: #### CBC #### [facility] [address] [place] [address] Dr. Marbella JefferyPLT203 103/ynTnmomo055-011Nqa [facility] HospitalComment on above: Performed By: #### CBC #### [facility] [address] [address] [address] Marbella JefferyRBC3.90 106/ulCritically low4.20-5.40The [facility] HospitalComment on above:Performed By: #### CBC #### [facility] [address] [place] [address] Dr. Marbella JefferyWBC8.7 103/ulNormal4.0-11.0The [facility] HospitalComment on above: Performed By: #### CBC #### [facility] [address] [place] [address] Dr. Marbella Menchaca THYROXINE INDEX T7on 68-00-5157VJT8.09Critically high 1.30-4.50The [facility] on above:Performed By: #### TSH, LIPID, CMP, T7 #### [facility] [address] [place] [address] Dr. Marbella JefferyT3U38.0 %Tcwdbl54.0-39.0The [facility] HospitalComment on above: Performed By: #### TSH, LIPID, CMP, T7 #### [facility] [address] [place] [address] Dr. Marbella JefferyT4 [Mass/Vol]13.40 ug/dLNormal4.80-13.90[facility] Comment on above:Performed By: #### TSH, LIPID, CMP, T7 #### [facility] [address] [place] [address] Dr. Marbella JefferyLIPID PROFILEon 55-87-7315DXOC-HDL RATIO NORMSEE [facility] HospitalComment on above:Result Comment: 3.3 - 4.4 LOW RISK 4.4 - 7.1 AVERAGE RISK 7.1 - 11.0 MODERATE RISK >11.0 HIGH RISKPerformed By: #### TSH, LIPID, CMP, T7 #### [facility] [address] [place] [address] Dr. Marbella JefferyCholesterol [Mass/Vol]137 mg/dLNormal<=200The [facility] Comment on above:Performed By: #### TSH, LIPID, CMP, T7 #### [facility] [address] [address] [address] Marbella Galeanoesterol in HDL [Mass/Vol]44 mg/gHVjuueu16-78Jwi [facility] on above:Performed By: #### TSH, LIPID, CMP, T7 #### [facility] [address] [address] [address] Marbella Galeanoesterol in LDL [Mass/Vol]67.2 mg/dLNoCommunity Memorial HospitalComment on above:Performed By: #### TSH, LIPID, CMP, T7 #### [facility] [address] [address] [address] Marbella Cochran.total/Cholesterol in HDL [Mass ratio]3.1 {ratio} NormalThe [facility] HospitalComment on above:Performed By: #### TSH, LIPID, CMP, T7 #### [facility] [address] [place] [address] Dr. Marbella Betancourt NORMAL> or = 60 mg/dl - LOW CARDIOVASCULAR RISK <40 mg/dl - HIGH CARDIOVASCULAR RISKNoCommunity Memorial HospitalComment on above:Performed By: #### TSH, LIPID, CMP, T7 #### [facility] [address] [place] [address] Dr. Marbella Nova CALC NORMALSEE BELOWPremier Health Miami Valley Hospital NorthComment on above:Result Comment: <100 mg/dl OPTIMAL 100 - 129 mg/dl NEAR OR ABOVE OPTIMAL 130 - 159 mg/dl BORDERLINE HIGH 160 - 189 mg/dl HIGH >190 mg/dl VERY HIGH Performed By: #### TSH, LIPID, CMP, T7 #### [facility] [address] [address] [address] Marbella JefferyTriglyceride [Mass/Vol]129 mg/dLNormal<=150[facility] Comment on above:Performed By: #### TSH, LIPID, CMP, T7 #### [facility] [address] [address] [address] Marbella Dela CruzLDL CALC25.8 mg/dLNoCommunity Memorial HospitalComment on above: Performed By: #### TSH, LIPID, CMP, T7 #### [facility] [address] [address] [address] Marbella Keating 14(COMP METB)on 73-47-7279Gklzwwl [Mass/Vol]3.1 g/dL Critically low3.4-5.0The [facility] HospitalComment on above:Performed By: #### TSH, LIPID, CMP, T7 #### [facility] [address] [address] [address] Marbella JefferyAlbumin/Globulin [Mass ratio]0.7 {ratio}NormalThe [facility] HospitalComment on above:Performed By: #### TSH, LIPID, CMP, T7 #### [facility] [address] [place] [address] Dr. Marbella Nash [Catalytic activity/Vol]168 U/LCritically okoc65-929Exr [facility] HospitalComment on above:Performed By: #### TSH, LIPID, CMP, T7 #### [facility] [address] [place] [address] Dr. Marbella Lewis [Catalytic activity/Vol]14 U/JWzcyrz55-35Lgt [facility] HospitalComment on above:Performed By: #### TSH, LIPID, CMP, T7 #### [facility] [address] [place] [address] Dr. Marbella Leung gap [Moles/Vol]12.8 mmol/LNormalThe [facility] Comment on above:Performed By: #### TSH, LIPID, CMP, T7 #### [facility] [address] [place] [address] Dr. Marbella Berrios [Catalytic activity/Vol]13 U/LCritically fxy65-29Ikw [facility] HospitalComment on above:Performed By: #### TSH, LIPID, CMP, T7 #### [facility] [address] [place] [address] Dr. Marbella JefferyBilirubin [Mass/Vol]0.4 mg/dLNormal0.2-1.0The [facility] Comment on above:Performed By: #### TSH, LIPID, CMP, T7 #### [facility] [address] [place] [address] Dr. Marbella JefferyCalcium [Mass/Vol]9.0 mg/dLNormal8.5-10.1The [facility] Comment on above:Performed By: #### TSH, LIPID, CMP, T7 #### [facility] [address] [address] [address] Marbella JefferyChloride [Moles/Vol]105 mmol/ZZxmuon17-766Skq [facility] Comment on above:Performed By: #### TSH, LIPID, CMP, T7 #### [facility] [address] [address] [address] Marbella JefferyCO2 [Moles/Vol]27.9 mmol/KAjdsrc27.0-32.0The [facility] Comment on above:Performed By: #### TSH, LIPID, CMP, T7 #### [facility] [address] [address] [address] Marbella JefferyCreatinine [Mass/Vol]1.17 mg/dLCritically high0.55-1.02The [facility] HospitalComment on above:Performed By: #### TSH, LIPID, CMP, T7 #### [facility] [address] [address] [address] Marbella GoGFR-AF LPYVJXOY73 mL/min/1.39c4Ejtsfedyys low>=60The [facility] HospitalComment on above:Performed By: #### TSH, LIPID, CMP, T7 #### [facility] [address] [address] [address] Marbella GoGFR-NON AF KFUFRVFL39 mL/min/1.13z1Hvtkclmyll low>=60The [facility] HospitalComment on above:Performed By: #### TSH, LIPID, CMP, T7 #### [facility] [address] [address] [address] Marbella JefferyGlobulin (S) [Mass/Vol]4.5 g/dLNormalThe [facility] HospitalComment on above:Performed By: #### TSH, LIPID, CMP, T7 #### [facility] [address] [address] [address] Marbella JefferyGlucose [Mass/Vol]105 mg/bZUahlvv82-606DuxCommunity Memorial Hospital Comment on above:Performed By: #### TSH, LIPID, CMP, T7 #### [facility] [address] [address] [address] Marbella JefferyPotassium [Moles/Vol]3.7 mmol/LNormal3.5-5.1[facility] Comment on above:Performed By: #### TSH, LIPID, CMP, T7 #### [facility] [address] [place] [address] Dr. Marbella JefferyProtein [Mass/Vol]7.6 g/dLNormal6.4-8.2[facility] Comment on above:Performed By: #### TSH, LIPID, CMP, T7 #### [facility] [address] [place] [address] Dr. Marbella JefferySodium [Moles/Vol]142 mmol/BMfwswb225-667Vyf [facility] Comment on above:Performed By: #### TSH, LIPID, CMP, T7 #### [facility] [address] [place] [address] Dr. Marbella JefferyUrea nitrogen [Mass/Vol]14.0 mg/dLNormal7.0-18.0[facility] HospitalComment on above:Performed By: #### TSH, LIPID, CMP, T7 #### [facility] [address] [place] [address] Dr. Marbella JefferyUrea nitrogen/Creatinine [Mass ratio]12.0 mg/mgNormalThe [facility] HospitalComment on above:Performed By: #### TSH, LIPID, CMP, T7 #### [facility] [address] [place] [address] Dr. Marbella Rutledge 69-12-5233AJL Qnm[IU]/LCritically low0.358-3.740[facility] HospitalComment on above:Result Comment: TEST REPEATED FOR VERIFICATION Performed By: #### TSH, LIPID, CMP, T7 #### [facility] [address] [place] [address] Dr. Marbella MarshF CHEM 8 (BAS METB)on 52-21-6838Kcbdg gap [Moles/Vol]11.2 mmol/LNormalThe [facility] HospitalComment on above:Performed By: #### BMP ####[facility] [address] [place], [place] [address]Dr. Yijv ChangCalcium [Mass/Vol]9.2 mg/dLNormal8.5-10.1The [facility] HospitalComment on above:Performed By: #### BMP ####[facility] [address] [place], [place] [address]Dr.Yilan ChangChloride [Moles/Vol]102 mmol/LNormal 98-107The [facility] HospitalComment on above:Performed By: #### BMP ####[facility] [address] [place], [place] [address]Dr.Yilan ChangCO2 [Moles/Vol]29.3 mmol/LIhagnd37.0-32.0The [facility] HospitalComment on above: Performed By: #### BMP ####[facility] [address] [place], [place] [address]Dr.Yilan ChangCreatinine [Mass/Vol]1.32 mg/dL Critically high0.55-1.02The [facility] HospitalComment on above:Performed By: #### BMP ####[facility] [address] [place], [place] [address]Dr.Yilan ChangEGFR-AF QZIQHGEC22 mL/min/1.71r3Hqiaqxotkn low>=60The [facility] HospitalComment on above:Performed By: #### BMP ####[facility] [address] [place], [place] [address]Dr.Yilan ChangEGFR-NON AF UZLADOXJ99 mL/min/1.26q3Tkbtajelyh low>=60The [facility] HospitalComment on above: Performed By: #### BMP ####[facility] [address] [place], [place] [address]Dr.Yilan ChangGlucose [Mass/Vol]127 mg/dLCritically icwo40-083Ery [facility] HospitalComment on above:Performed By: #### BMP ####[facility] [address] [place], [place] [address]Dr. Yilan ChangPotassium [Moles/Vol]4.5 mmol/LNormal3.5-5.1The [facility] Comment on above:Performed By: #### BMP ####[facility] [address] [address]Dr.Marbella ChangSodium [Moles/Vol]138 mmol/L Baoiwz079-037Nva [facility] HospitalComment on above:Performed By: #### BMP ####[facility] [address] [address]Dr. Marbella ChangUrea nitrogen [Mass/Vol]20.0 mg/dLCritically high7.0-18.0The [facility] HospitalComment on above:Performed By: #### BMP ####[facility] [address] [address]Dr.Marbella ChangUrea nitrogen/Creatinine [Mass ratio]15.2 mg/mgNormalThe [facility] HospitalComment on above:Performed By: #### BMP ####[facility] [address] [address]Dr.Marbella JefferyNM STRESS/REST MULTIon 18-21-8845VL STRESS/REST MULTIPatient: DEEPTHI PANTOJA Exam Date: 03/15/2022 : 1960 Gender:F Ordering : DR YONY TEAGUE . Admission #: [id number] Family : Order #: [id number] CLICK HERE TO VIEW EXAM RADIOLOGY REPORT [...] by: Alex Lewis M.D. on 03/16/2022 at 07:23[facility] LUNG CANCER SCREENINGon 38-63-9401SA LUNG CANCER SCREENING EXAMINATION: CT LUNG CANCER [...] Electronically authenticated by: ALEX LEWIS Date: 2022-03-01 08:03[facility] NorthMRI BRAIN WO W CONon 84-45-5992LQR BRAIN WO W CONEXAMINATION: MRI BRAIN WO [...] Electronically authenticated by: MICHAEL ELIZONDO Date: 2021-08-20 08:33[facility] Hospital NorthCREATININEon 07-77-3989Toheygzuhh [Mass/Vol]1.35 mg/dL Critically high0.55-1.02The [facility] HospitalComment on above:Performed By: #### CREA #### [facility] [address] [address] [address] Marbella GoGFR-AF NUJBZMNA33 mL/min/1.74i0Edhtmsktjy low>=60The [facility] HospitalComment on above:Performed By: #### CREA #### [facility] [address] [address] [address] Marbella GoGFR-NON AF EBCEQNXM88 mL/min/1.96v6Ebhjrofyhv low>=60The [facility] HospitalComment on above:Performed By: #### CREA #### [facility] [address] [address] [address] Marbella Jeffery Vital Signs Date TimeVital SignValuePerforming WcqqnriyrRepimnrn54-93-1176 10:35-0400 Diastolic blood minjvbfd31 mm[Hg]Yony Teague MD Work Phone: [phone]07-03-2025 10:35-0400 Systolic blood xzchamed179 mm[Hg]Yony Teague MD Work Phone: [phone] [place], [place] 8805207-03-2025 10:28-0400 Body fvvrax927.48 cmYony Teague MD Work Phone: [phone] [place], [place] 8805207-03-2025 10:28-0400 Body mass index (BMI) [Ratio]26.6 kg/n8FrulmplYony Teague MD Work Phone: [phone] [place], [place] 8805207-03-2025 10:28-0400 Body fuwazxymqsj52.7 [degF]Yony Teague MD Work Phone: [phone] [place], [place] 8805207-03-2025 10:28-0400 Body huczzu21.22 kgYony Teague MD Work Phone: [phone] [place], [place] 8805207-03-2025 10:28-0400 Heart rate61 /Jeanie Teague MD Work Phone: [phone] [place], [place] 8805207-03-2025 10:28-0400 Respiratory rate18 /Jeanie Teague MD Work Phone: [phone] [place], [place] 8805207-03-2025 10:28-0400 SaO2% (BldA) [Mass fraction]98 %Yony Teague MD Work Phone: [phone] [place], [place] 8805207-25-2024 10:43-0400 Body vuvksu926.48 cmSelect [facility]07-25-2024 10:43-0400Body mass index (BMI) [Ratio]26.5 kg/a0LifsmgytfSelect Medical Specialty Hospital - Canton07-25-2024 10:43-0400Body ebctykcngws07.5 [degF][facility]07-25-2024 10:43-0400Body .82 kgSelect Medical Specialty Hospital - [facility]07-25-2024 10:43-0400Diastolic blood fqwlymzx54 mm[Hg][facility] 10-04-2023 10:43-0400Heart rate60 /minSelect Medical Specialty Hospital - [facility] 10-04-2023 10:43-0400Respiratory rate16 /minSelect Medical Specialty Hospital - [facility] 10-04-2023 10:43-6634PkX7% (BldA) [Mass fraction]97 %[facility]07-25-2024 10:43-0400Systolic blood rgdfymfu342 mm[Hg][facility]06-20-2024 15:45-0400Body .48 cmSelect [facility]ty [facility]06-20-2024 15:45-0400Body mass index (BMI) [Ratio]26.2 kg/m2 [facility]06-20-2024 15:45-0400Body cordfibatsz51.4 [degF][facility]06-20-2024 15:45-0400Body czzdri67.86 kg [facility]06-20-2024 15:45-0400Diastolic blood tgzbbpha20 mm[Hg][facility]06-20-2024 15:45-0400Heart rate73 /min [facility]06-20-2024 15:45-0400Respiratory rate16 /min [facility]06-20-2024 15:45-7038RgM5% (BldA) [Mass fraction]97 %[facility]06-20-2024 15:45-0400Systolic blood jougppgj565 mm[Hg][facility] Encounters Encounter DateEncounter TypeCare ProviderFacilityStart: 11-13-2024 End: 60-46-8092iwvuyomofyYHCOLKJ [facility] Systemtart: 09-11-2024 End: 89-35-0840aojelxriktOysnquf M Hoy MD Work Phone: [facility] [place] Work Phone: Start: 09-11-2024 End: 95-07-1694Pwsmlov encounter procedureKerwin Andrade MD-[facility] Work Phone: Start: 12-03-2023 End: 83-30-1345tiapfpokorNZOAWilson [address] Hospitaltart: 10-04-2023 End: 93-55-2183autbeukmshAofibiuqsOhioHealth [facility] Center Work Phone: Start: 10-04-2023 End: 41-32-0819Zbgdsiq encounter procedureHugh [facility] Work Phone: Start: 27-51-4610Hhy-patient / Non-visitH[facility] Work Phone: Start: 08-30-2023 End: 62-48-5085ipnkxgaapeUslheprgwSelect [facility] Work Phone: Start: 08-30-2023 End: 04-56-2528Whtgmwj encounter procedureHugh [facility] Work Phone: Start: 07-19-2022 End: 84-17-2864hubvebxzctTO YONY HOY .Facility:N6Eztra: 06-28-2022 End: 39-66-2885ssdtksrckxQA YONY HOY .Facility:F6Cclyl: 03-28-2022 End: 12-73-4434pmcjtzxvotYS [facility]Fac[facility]:V4Htpzi: 03-15-2022 End: 41-19-8933akapngkhrfRV YONY HOY .Facility:S5Pybwu: 02-28-2022 End: 70-45-3404hyzuertiwuQY YONY HOY .Facility:G1Ihjww: 08-19-2021 End: 70-27-6697xxaiedbwdrPM YONY HOY .Facility:I5Kacgl: 12-27-2017 End: 45-97-2598Mldjhmu encounterDEFAULT PHYSICIANFacility:UTMCStart: 12-03-2017 End: 23-59-8971Hkhqrqq encounterDEFAULT PHYSICIANFacility:[facility] Plan of Treatment DateCare ActivityDetailAuthorImmunofixation for UrineSelect Medical Specialty Hospital - CantonRenal function 1999 panel [facility] Serum [facility] - Serum or [facility] HospitalRen[facility] function 1999 panel - Serum or [facility] Payers DatePayer CategoryPayerPolicy [id number] [id number] [id number] [id number] [id number] 2.0.1.526617.3.5[id number] Social History DateTypeDetailFacilityStart: 71-24-4036Vjxotcl smoking status NHISSmoker (finding)[facility] 19-91-1125[place] Assigned At FemaleWyandot Memorial Hospitaltart: 13-01-8710Jknumyo smoking status NHISSmobob tobacco daily (finding)[facility] Hospitalex[facility] (finding)[facility] Progress note 11-13-2024 Note Date & [id number] [facility]Card[facility] SUBJECTIVE Chief Complaint Patient presents with [...] artery: This vessel garcia (more content not included)...[facility] Progress note 12-03-2023 Note Date & [id number] [facility] Chief Complaint: [...] III, and aVF. After (more content not included)...[facility] Evaluation note Note Date & TypeNoteFacilityEvaluation note* Diagnosis Onset Date Resolution Status CAD (coronary artery disease) acuteCKD (chronic kidney disease) stage 3, GFR 30-59 ml/minacuteHyperlipidemia [id number] hyperparathyroidismW[facility] Work Phone: Evaluation note Note Date & TypeNoteFacilityEvaluation note* Diagnosis Onset Date Resolution Status CAD (coronary artery disease) acuteCKD (chronic kidney disease) stage 3, GFR 30-59 ml/minacuteHyperlipidemia [id number] hyperparathyroidismacuteCAD (coronary artery disease)acuteCKD (chronic kidney disease) stage 3, GFR 30-59 ml/minacute QfyuplwxquqpdrhqvpxIIW-OEYI-[id number]sxamkxiftvidzwjeql MGUS (monoclonal gammopathy of unknown significance)acuteSecondary hyperparathyroidismacute [facility] Work Phone: Evaluation note Note Date & [...] significance) acuteJuly 2024 10:24amSecondary hyperparathyroidismacuteJuly 2024 10:24am [facility] Work Phone: Reason for referral (narrative) Note Date & TypeNoteFacilityReason for referral (narrative)No reason for referral information availableSelect [facility] [place] Work Phone: Summary Purpose Family History No [...] disease) stage 3, GFR 30-59 ml/min Hyperlipidemia [id number] Secondary hyperparathyroidism Chief Complaint RENAL CKD / RENAL FA ILURE 6 week follow upReason for VisitCAD (coronary artery disease) CKD (chronic kidney disease) stage 3, GFR 30-59 ml/min Hyperlipidemia [id number] Secondary hyperparathyroidism CAD (coronary artery disease) CKD (chronic kidney disease) stage 3, GFR 30-59 ml/min Hyperlipidemia [id number] Hyperuricemia Hypomagnesemia MGUS (monoclonal gammopathy of unknown [...] and content) DATE CREATED AUTHOR 01/01/2018 [facility] DATE CREATED AUTHOR AUTHOR'S ORGANIZ ATION 07/22/2022 [facility] DATE CREATED AUTHOR AUTHOR'S ORGANIZ ATION 11/15/2024 [facility] Care Teams (unrecognized sec tion and [...] BE BASED ON THE PRIMARY CLINICAL RECORDS. [employer] [facility]. provides no warranty or guarantee of the accuracy or completeness of information in this document.
--- OUTSIDE RECORDS SUMMARY | 2025-02-06 11:20 | XMS_ITS | Patient Health Record ---
Author Organization [facility] [place] in [place] Address [address] [place] [address] Care Team Providers Care Transmission Technician Name Role Phone Zaire Goode Primary Care Provider Romi Armijo Unavailable [phone] Allergies Allergen (clinical drug ingredient) Drug/Non Drug Allergy documented on EMR Reaction Allergy Type Onset Date Status rosuvastatin Crestor muscle aches Drug Allergy Activefluticasone / umeclidinium / vilanterolTrelegy ElliptatachycardiaDrug AllergyActivePenicillinhivesDrug AllergyActive Results Component Value Reference Range Notes COVID-19, Flu A+B IH Reviewed date:01/15/2025 12:47:11 PM Interpretation: Performing Lab: Notes/Report: COVID neg FLU AnegFLU BnegControlposMAGNESIUM Reviewed date:09/11/2024 08:51:08 PM Interpretation: Performing Lab: Notes/Report: [facility] ,Magnesium1.81.8-2.4 mg/dLPerforming Lab:see noteML - [facility] LB RENAL FUNCTION PANEL Reviewed date:09/11/2024 08:51:08 PM Interpretation: Performing Lab: Notes/Report: [facility] ,Cbhocz565818-132 mmol/LPotassium3.93.5-5.1 mmol/FQtgmnrcu34792-857 mmol/LCarbon Srrafiv71.921.0-32.0 mmol/LAnion Gap15.3Mibmnsm8528-178 mg/dLBlood Urea Nitrogen 22.07.0-18.0 mg/dLCreatinine1.550.55-1.02 mg/dLEstimated GFR ( Luhpjym66 >=60 mL/min/1.73m 2Estimated GFR (Non- Ame33>=60 mL/min/1.73m 2BUN Creatinine Ratio14.3Qflkoym7.18.5-10.1 mg/dLPhosphorus4.12.6-4.7 mg/dLAlbumin Level3.13.4-5.0 g/dLPerforming Lab:see note - [facility] LBURIC ACID SERUM Reviewed date:09/11/2024 08:51:08 PM Interpretation: Performing Lab: Notes/Report: [facility] ,Uric Acid7.22.6-6.0 mg/dLPerforming Lab:see note - [facility] LB PTH, Intact Reviewed date:09/14/2024 01:41:33 PM Interpretation: Performing Lab: Notes/Report: [facility] ,PTH, Rxpcot1277-84 pg/mL Performed at: - [facility] [address] [id number] Production Control Technologist: Lex Munguia PhD, Phone: [phone] Performing Lab:see note - [facility] LBIRON AND TIBC Reviewed date:01/15/2025 12:47:12 PM Interpretation: Performing Lab: Notes/Report: [facility] ,Iron79.050.0-170.0 ug/dLTotal Iron Binding Nwsvmpzo859.0250.0-450.0 ug/dL Percent Iron Dstkxcblvm30.9Performing Lab:see note - [facility] LB CBC AUTO DIFF Reviewed date:01/15/2025 12:47:11 PM Interpretation: Performing Lab: Notes/Report: [facility] ,White Blood Count8.44.0-11.0 10 3/uLRed Blood Count4.294.20-5.40 10 6/uL Ebcxrftpyb01.312.0-16.0 g/rJNrlolpxxoo30.636.0-48.0 %Mean Corpuscular Myjjkf31.0 81.0-99.0 fLMean Corpuscular Wclftrklpv89.026.7-34.0 pgMean Corpuscular HGB Conc 34.529.9-35.2 g/dLRed Cell Distribution Width13.111.0-15.0 %Platelet Mdgcp182 150-450 10 3/uLMean Platelet Uxmzzj10.69.5-13.5 fLNeutrophils Percent Auto69.3 43.0-75.0 %Lymphocytes Percent Auto21.420.5-60.0 %Monocytes Percent Auto6.51.7- 12.0 %Eosinophils Percent Auto1.90.9-7.0 %Basophils Percent Auto0.70.2-2.0 % Immature Granulocytes Pct Auto0.20.0-0.5 %Neutrophils Absolute Auto5.81.4-6.5 10 3/uLLymphocytes Absolute Auto1.81.2-3.8 10 3/uLMonocytes Absolute Auto0.60.3-0.8 10 3/uLEosinophils Absolute Auto0.20.0-0.7 10 3/uLBasophils Absolute Auto0.10.0- 0.1 10 3/uLImmature Granulocytes Abs Auto0.020.00-0.03 10 3/uLPerforming Lab:see noteML - [facility] LBCRP Reviewed date:01/15/2025 12:47:11 PM Interpretation: Performing Lab: Notes/Report: [facility] ,C Reactive Protein1.44<=0.50 mg/dLPerforming Lab:see [facility] LBIRON AND TIBC Reviewed date:01/15/2025 12:47:11 PM Interpretation: Performing Lab: Notes/Report: [facility] ,Iron91.050.0-170.0 ug/dLTotal Iron Binding Iruibeaq705.0250.0-450.0 ug/dL Percent Iron Vclonsthvh42.3Performing Lab:see note - [facility] LB Erythrocyte Sedimentation Rate Reviewed date:01/15/2025 12:47:11 PM Interpretation: Performing Lab: Notes/Report: [facility] ,Erythrocyte Sedimentation Rate36<=30 mm/hrPerforming Lab:see note - [facility] LBIFE, PE and FLC, Serum Reviewed date:01/15/2025 12:47:11 PM Interpretation: Performing Lab: Notes/Report: [facility] ,Immunoglobulin G, Qn, Wuoow4490417-6708 mg/dLImmunoglobulin A, Qn, Vyhhq99389- 352 mg/dLImmunoglobulin M, Qn, Eqbmt08966-657 mg/dLProtein, Total6.96.0-8.5 g/dL Albumin3.42.9-4.4 g/uSPktko-4-Kerphubq6.30.0-0.4 g/nIKxtzd-5-Ziepbbmd6.90.4-1.0 g/dLBeta Globulin1.10.7-1.3 g/dLGamma Globulin1.20.4-1.8 g/dLM-SpikeComment:Not Observed g/dL Monoclonal IgG lambda #1 = 0.3 g/dl Monoclonal IgG lambda #2 = 0.2 g/dl Globulin, Total3.52.2-3.9 g/dLA/G Ratio1.00.7-1.7Immunofixation Result, Serum Comment. Immunofixation shows a biclonal IgG protein with lambda specificity. Please note:Comment. Protein electrophoresis scan will follow via computer, mail, or continuous churn buttermaker delivery. Free [place] Lt Chains,S49.13.3-19.4 mg/LFree Lambda Lt Chains,S48.75.7-26.3 mg/L [place]/Lambda Ratio,S1.010.26-1.65 Performed at: [address] [id number] Production Control Technologist: Lex Munguia PhD, Phone: [phone] Performing [facility] LBVitamin B12 Reviewed date:01/15/2025 12:47:11 PM Interpretation: Performing Lab: Notes/Report: [facility] ,Vitamin B86334867-4420 pg/mL Performed at: [address] [id number] Production Control Technologist: Lex Munguia PhD, Phone: [phone] Performing Lab[facility] LBFREE T3 Reviewed date:11/19/2024 12:34:18 PM Interpretation: Performing Lab: Notes/Report: [facility] ,Free T31.982.18-3.98 pg/mLPerforming Lab:see indy - [facility] LB T4 Reviewed date:11/19/2024 12:34:18 PM Interpretation: Performing Lab: Notes/Report: [facility] ,T4 Thyroxine8.504.80-13.90 ug/dLPerforming Lab:see note - [facility] Reviewed date:11/19/2024 12:34:18 PM Interpretation: Performing Lab: Notes/Report: [facility] ,Thyroid Stimulating Hormone0.0120.358-3.740 uIU/mLPerforming Lab:see noteML - [facility] LBFREE T3 Reviewed date:12/16/2024 04:24:55 PM Interpretation: Performing Lab: Notes/Report: [facility] ,Free T32.912.18-3.98 pg/mLPerforming Lab:see noteML - [facility] LB T4 Reviewed date:12/16/2024 04:24:55 PM Interpretation: Performing Lab: Notes/Report: [facility] ,T4 Jnytqwhlk26.504.80-13.90 ug/dLPerforming Lab:see note - [facility] Reviewed date:12/16/2024 04:24:55 PM Interpretation: Performing Lab: Notes/Report: [facility] ,Thyroid Stimulating Hormone<0.0070.358-3.740 uIU/mLPerforming Lab:see note - [facility] LBAMYLASE (Not yet reviewed by provider) Interpretation: Performing Lab: Notes/Report: [facility] ,Vtflwhy7553-621 U/LPerforming Lab:see note - [facility] LBCBC AUTO DIFF (Not yet reviewed by provider) Interpretation: Performing Lab: Notes/Report: [facility] ,White Blood Count14.44.0-11.0 10 3/uLRed Blood Count4.264.20-5.40 10 6/uL Cfeoqdzasi83.712.0-16.0 g/fWEdntiokqos30.536.0-48.0 %Mean Corpuscular Snifol26.7 81.0-99.0 fLMean Corpuscular Mdgkdydlmf63.226.7-34.0 pgMean Corpuscular HGB Conc 34.729.9-35.2 g/dLRed Cell Distribution Width12.811.0-15.0 %Platelet Emnnd509 150-450 10 3/uLMean Platelet Abfgxf65.89.5-13.5 fLNeutrophils Percent Auto80.0 43.0-75.0 %Lymphocytes Percent Auto12.420.5-60.0 %Monocytes Percent Auto6.51.7- 12.0 %Eosinophils Percent Auto0.30.9-7.0 %Basophils Percent Auto0.50.2-2.0 % Immature Granulocytes Pct Auto0.30.0-0.5 %Neutrophils Absolute Auto11.51.4-6.5 10 3/uLLymphocytes Absolute Auto1.81.2-3.8 10 3/uLMonocytes Absolute Auto0.90.3- 0.8 10 3/uLEosinophils Absolute Auto0.10.0-0.7 10 3/uLBasophils Absolute Auto0.1 0.0-0.1 10 3/uLImmature Granulocytes Abs Auto0.050.00-0.03 10 3/uLPerforming Lab:see noteML - [facility] LBLIPASE (Not yet reviewed by provider) Interpretation: Performing Lab: Notes/Report: [facility] ,Wazgjc82.016.0-77.0 U/LPerforming Lab:see noteML - [facility] LB LIVER PROFILE (Not yet reviewed by provider) Interpretation: Performing Lab: Notes/Report: [facility] ,Bilirubin Total0.50.2-1.0 mg/dLBilirubin Direct0.10.0-0.2 mg/dLAspartate Amino Oaudlnwtpye0412-59 U/LAlanine Cvaaqvooqhpfxcmp7661-30 U/LAlkaline Rrbipvxdeft008 46-116 U/LTotal Protein7.96.4-8.2 g/dLAlbumin Level3.43.4-5.0 g/dLGlobulin4.5 Albumin Globulin Ratio0.8Performing Lab:see noteML - [facility] LB PROF CHEM 8 (BAS METB) (Not yet reviewed by provider) Interpretation: Performing Lab: Notes/Report: [facility] ,Orqdwu472614-717 mmol/LPotassium3.03.5-5.1 mmol/HUndnblxd94339-784 mmol/LCarbon Lqcdnuu50.921.0-32.0 mmol/LAnion Gap11.5Cmjadkn78866-118 mg/dLBlood Urea Gjlfqtiv30.07.0-18.0 mg/dLCreatinine1.500.55-1.02 mg/dLEstimated GFR ( Ssdzieo67>=60 mL/min/1.73m 2Estimated GFR (Non- Ame35>=60 mL/min/1.73m 2 BUN Creatinine Ratio10.6Varirsp6.18.5-10.1 mg/dLPerforming Lab:see note - [facility] Reviewed date:01/15/2025 12:47:11 PM Interpretation: Performing Lab: Notes/Report: [facility] ,Thyroid Stimulating Hormone<0.0070.358-3.740 uIU/mLPerforming Lab:[facility] LBTHYROID ANTIBODIES Reviewed date:01/17/2025 03:35:40 PM Interpretation: Performing Lab: Notes/Report: [facility] ,Thyroid Peroxidase (TPO) Uo7904-17 IU/mLThyroglobulin Antibody<1.00.0-0.9 IU/mL Thyroglobulin Antibody measured by Josue Dulce Methodology It should be noted that the presence of thyroglobulin antibodies may not be pathogenic nor diagnostic, especially at very low levels. The assay sexual assault response coordinator has found that four percent of individuals without evidence of thyroid disease or autoimmunity will have positive TgAb levels up to 4 IU/mL. Performed at: [address] [id number] Production Control Technologist: Lex Munguia PhD, Phone: [phone] Performing Lab:[facility] LBT4 Reviewed date:01/15/2025 12:47:11 PM Interpretation: Performing Lab: Notes/Report: [facility] ,T4 Rdqyhrkzf30.904.80-13.90 ug/dLPerforming Lab:see note - [facility]FREE T3 Reviewed date:01/15/2025 12:47:11 PM Interpretation: Performing Lab: Notes/Report: [facility] ,Free T32.792.18-3.98 pg/mLPerforming Lab:see note - [facility] LB PROF CHEM 8 (BAS METB) Reviewed date:01/15/2025 12:47:11 PM Interpretation: Performing Lab: Notes/Report: [facility] ,Nnuecz246167-956 mmol/LPotassium3.93.5-5.1 mmol/EDjbfgmfx67994-997 mmol/LCarbon Ccuhnij10.121.0-32.0 mmol/LAnion Gap14.9Dxegdtn62755-095 mg/dLBlood Urea Ypaebino65.07.0-18.0 mg/dLCreatinine1.530.55-1.02 mg/dLEstimated GFR ( Lzxspht23>=60 mL/min/1.73m 2Estimated GFR (Non- Ame34>=60 mL/min/1.73m 2 BUN Creatinine Ratio10.4Gmudfpj1.98.5-10.1 mg/dLPerforming Lab:see noteML - [facility] LBFERRITIN Reviewed date:01/15/2025 12:47:11 PM Interpretation: Performing Lab: Notes/Report: [facility] ,Qzelqxfq061.08.0-252.0 ng/mLPerforming Lab:see note - [facility] LBCBC AUTO DIFF Reviewed date:01/15/2025 12:47:11 PM Interpretation: Performing Lab: Notes/Report: [facility] ,White Blood Count10.74.0-11.0 10 3/uLRed Blood Count4.314.20-5.40 10 6/uL Yeedibmrqh99.312.0-16.0 g/iPHlehxeewfy00.736.0-48.0 %Mean Corpuscular Lhdrwy50.8 81.0-99.0 fLMean Corpuscular Evbavonvgb57.926.7-34.0 pgMean Corpuscular HGB Conc 34.429.9-35.2 g/dLRed Cell Distribution Width13.911.0-15.0 %Platelet Tbvkh422 150-450 10 3/uLMean Platelet Xdcnpb48.39.5-13.5 fLNeutrophils Percent Auto72.3 43.0-75.0 %Lymphocytes Percent Auto19.220.5-60.0 %Monocytes Percent Auto6.21.7- 12.0 %Eosinophils Percent Auto1.40.9-7.0 %Basophils Percent Auto0.70.2-2.0 % Immature Granulocytes Pct Auto0.20.0-0.5 %Neutrophils Absolute Auto7.81.4-6.5 10 3/uLLymphocytes Absolute Auto2.11.2-3.8 10 3/uLMonocytes Absolute Auto0.70.3-0.8 10 3/uLEosinophils Absolute Auto0.20.0-0.7 10 3/uLBasophils Absolute Auto0.10.0- 0.1 10 3/uLImmature Granulocytes Abs Auto0.020.00-0.03 10 3/uLPerforming Lab:see note - [facility] LBCBC no Diff (Hemogram) Reviewed date:09/11/2024 08:51:08 PM Interpretation: Performing Lab: Notes/Report: [facility] ,White Blood Count7.84.0-11.0 10 3/uLRed Blood Count4.204.20-5.40 10 6/uL Vyriqswlak40.812.0-16.0 g/kJItvgufirkf94.936.0-48.0 %Mean Corpuscular Bxxvck93.9 81.0-99.0 fLMean Corpuscular Btktcnsanr18.526.7-34.0 pgMean Corpuscular HGB Conc 34.729.9-35.2 g/dLRed Cell Distribution Width14.511.0-15.0 %Platelet Fhqml100 150-450 10 3/uLMean Platelet Gndvrr06.89.5-13.5 fLPerforming Lab:see note - [facility] LBVITAMIN D 25 [place] Reviewed date:09/11/2024 08:51:08 PM Interpretation: Performing Lab: Notes/Report: [facility] ,Vitamin D45.6 <20 ng/mL Vit D deficient 20-<30 ng/mL Vit D insufficient 30-100 ng/mL Vit D sufficient >100 ng/mL Potential Toxicity Performing Lab:see note - [facility] LBURINE T PROTEIN CREAT RATIO Reviewed date:09/11/2024 08:51:08 PM Interpretation: Performing Lab: Notes/Report: [facility] ,Total Protein Urine Fizqxf85.4<=11.9 mg/dLCreatinine Urine Oydalq449.4220.00- 300.00 mg/dLProtein Creatinine Ratio Urine0.56Performing Lab:see noteML - [facility] LBUA RANDOM W or MICROSCOPIC Reviewed date:09/11/2024 08:51:08 PM Interpretation: Performing Lab: Notes/Report: [facility] ,Color UrineLT. YELLOWYELLOWClarity UrineCLEARCLEARSpecific Hemlock Urine1.020 1.005-1.025pH Urine6.05.0-9.0Protein Rbqdt59QHO/TRACE mg/dLGlucose Urine UA NEGATIVENEGATIVE mg/dLBilirubin UrineNEGATIVENEGATIVEKetones UrineNEGATIVE NEGATIVE mg/dLBlood UrineNEGATIVENEGATIVENitrite UrineNEGATIVENEGATIVE Urobilinogen Urine0.20.2-1.0 EU/dLLeukocyte Esterase UrineNEGATIVENEGATIVEWBC Urine0-2NONE SEEN #/HPFRBC Urine0-20-2 #/HPFBacteria UrineTRACENONE SEEN #/HPF Mucus UrineTRACENONE SEENSquamous Epithelial Cell UrineRARENONE/RARE #/LPF Crystals Seen?None SeenNone Seen #/HPFCast Seen?SEENNONE SEEN #/LPFHyaline Casts UrineRAREPerforming Lab:see noteML - [facility] LBIFE, PE and FLC, Serum Reviewed date:09/11/2024 08:51:08 PM Interpretation: Performing Lab: Notes/Report: [facility] ,Immunoglobulin G, Qn, Kowzw9226118-4947 mg/dLImmunoglobulin A, Qn, Zxiyq60474- 352 mg/dLImmunoglobulin M, Qn, Sptwp61801-296 mg/dLProtein, Total6.96.0-8.5 g/dL Albumin3.32.9-4.4 g/cUDdtux-3-Lxohngej2.30.0-0.4 g/uJZpffl-5-Hemmyewf3.00.4-1.0 g/dLBeta Globulin1.20.7-1.3 g/dLGamma Globulin1.10.4-1.8 g/dLM-Spike0.3Not Observed g/dLGlobulin, Total3.62.2-3.9 g/dLA/G Ratio1.00.7-1.7Immunofixation Result, SerumComment. Immunofixation shows IgG monoclonal protein with lambda light chain specificity. Please note:Comment. Protein electrophoresis scan will follow via computer, mail, or continuous churn buttermaker delivery. Free [place] Lt Chains,S53.43.3-19.4 mg/LFree Lambda Lt Chains,S56.45.7-26.3 mg/L [place]/Lambda Ratio,S0.950.26-1.65 Performed at: [facility] Lab[address] [id number] Production Control Technologist: Lex Munguia PhD, Phone: [phone] Performing Lab:see note - [facility] LBErythrocyte Sedimentation Rate Reviewed date:09/11/2024 08:51:08 PM Interpretation: Performing Lab: Notes/Report: [facility] ,Erythrocyte Sedimentation Rate71<=30 mm/hrPerforming Lab:see noteML - [facility] LBPROF 14(COMP METB) Reviewed date:09/11/2024 08:51:08 PM Interpretation: Performing Lab: Notes/Report: [facility] ,Jecdpv354495-417 mmol/LPotassium3.93.5-5.1 mmol/TJwepqlhw18154-614 mmol/LCarbon Gldwtxt41.921.0-32.0 mmol/LAnion Gap11.8Uouhnqa0909-649 mg/dLBlood Urea Nitrogen 21.07.0-18.0 mg/dLCreatinine1.570.55-1.02 mg/dLEstimated GFR ( Ffyddqb00 >=60 mL/min/1.73m 2Estimated GFR (Non- Ame33>=60 mL/min/1.73m 2BUN Creatinine Ratio13.1Mnjsswz3.68.5-10.1 mg/dLBilirubin Total0.40.2-1.0 mg/dL Aspartate Amino Qjaufhxnhem8844-61 U/LAlanine Rroqekwpuncnuucu4226-71 U/L Alkaline Ngzxqkjthxx83361-766 U/LTotal Protein7.46.4-8.2 g/dLAlbumin Level3.0 3.4-5.0 g/dLGlobulin4.4Albumin Globulin Ratio0.7Performing Lab:see note - [facility] LBIRON AND TIBC Reviewed date:09/11/2024 08:51:08 PM Interpretation: Performing Lab: Notes/Report: [facility] ,Iron70.050.0-170.0 ug/dLTotal Iron Binding Wbxiximc331.0250.0-450.0 ug/dL Percent Iron Dkgtlftwzr97.2Performing Lab:see note - [facility] LB IMMUNOGLOBULIN E, TOTAL Reviewed date:09/11/2024 08:51:08 PM Interpretation: Performing Lab: Notes/Report: [facility] ,Immunoglobulin E, Ifygy141-504 IU/mL Performed at: [facility] Lab[address] [id number] Production Control Technologist: Sam Tolbert MD, Phone: [phone] Performing Lab:see note - [facility] LBFERRITIN Reviewed date:09/11/2024 08:51:08 PM Interpretation: Performing Lab: Notes/Report: [facility] ,Qsbwkdca76.08.0-252.0 ng/mLPerforming Lab:see note - [facility] LB CRP Reviewed date:09/11/2024 08:51:08 PM Interpretation: Performing Lab: Notes/Report: [facility] ,C Reactive Protein1.89<=0.50 mg/dLPerforming Lab:see note - [facility] LBCBC AUTO DIFF Reviewed date:09/11/2024 08:51:08 PM Interpretation: Performing Lab: Notes/Report: [facility] ,White Blood Count9.34.0-11.0 10 3/uLRed Blood Count4.074.20-5.40 10 6/uL Dokofofown81.912.0-16.0 g/qRXvnnhndrde95.336.0-48.0 %Mean Corpuscular Sjamyb08.7 81.0-99.0 fLMean Corpuscular Ndjarbxocw74.226.7-34.0 pgMean Corpuscular HGB Conc 33.729.9-35.2 g/dLRed Cell Distribution Width14.011.0-15.0 %Platelet Ycqjb034 150-450 10 3/uLMean Platelet Ostjvr62.09.5-13.5 fLNeutrophils Percent Auto67.2 43.0-75.0 %Lymphocytes Percent Auto21.420.5-60.0 %Monocytes Percent Auto7.81.7- 12.0 %Eosinophils Percent Auto2.60.9-7.0 %Basophils Percent Auto0.60.2-2.0 % Immature Granulocytes Pct Auto0.40.0-0.5 %Neutrophils Absolute Auto6.21.4-6.5 10 3/uLLymphocytes Absolute Auto2.01.2-3.8 10 3/uLMonocytes Absolute Auto0.70.3-0.8 10 3/uLEosinophils Absolute Auto0.20.0-0.7 10 3/uLBasophils Absolute Auto0.10.0- 0.1 10 3/uLImmature Granulocytes Abs Auto0.040.00-0.03 10 3/uLPerforming Lab:see noteML - [facility] LBUS renal BI Reviewed date:07/04/2024 12:23:49 PM Interpretation: Performing Lab: Notes/Report: Source Facility: [place] [address] Ultrasound Report Signed Patient: MYRIAM PANTOJA MR#: [id number] : 1960 Acct:[id number] Age/Sex: 64 / F ADM Date: 07/04/24 Loc: US Attending Dr: Jonatan Goode M.D. Ordering Physician: Jonatan Goode M.D. Date of Service: 07/04/24 Procedure(s): US renal BI Accession Number(s): [id number] cc: Jonatan Goode M.D. [place] [id number] Patient Name: MYRIAM PANTOJA MRN: [id number] date: 1960 Sex: F Assigned Patient Location: Current Patient Location: US Accession/Order Number: [id number] Exam Date: 07/04/2024 10:27 Report Date: 07/04/2024 10:28 At the request of: JONATAN GOODE MD Procedure: US renal BI BILATERAL [...] findings. Impression dictated by: Olu Lam Jr., DNaomiONaomi 07/04/2024 10:28 AM Dictation Location: [place] [address] Electronically authenticated by: [id number] Y Date: 07/04/2024 10:28 Dictated By: Olu Lam M.D. Signed By: 07/04/24 1030 DD/ 1028 TD/TT: Pickle Sorter:TSH Reviewed date:06/28/2024 11:53:33 AM Interpretation: Performing Lab: Notes/Report: [facility] ,Thyroid Stimulating Hormone0.0080.358-3.740 uIU/mLPerforming Lab:see noteML - [facility] LBT4 Reviewed date:06/28/2024 11:53:33 AM Interpretation: Performing Lab: Notes/Report: [facility] ,T4 Thyroxine7.904.80-13.90 ug/dLPerforming Lab:see noteML - [facility] LBPROF 14(COMP METB) Reviewed date:06/28/2024 11:53:33 AM Interpretation: Performing Lab: Notes/Report: [facility] ,Tvbsms502999-805 mmol/LPotassium4.53.5-5.1 mmol/QKmffuduv25234-154 mmol/LCarbon Dzlacjq32.321.0-32.0 mmol/LAnion Gap12.9Iocbpvd30672-235 mg/dLBlood Urea Rcyuwxgl73.07.0-18.0 mg/dLCreatinine2.410.55-1.02 mg/dLEstimated GFR ( Muakuoe66>=60 mL/min/1.73m 2Estimated GFR (Non- Ame20>=60 mL/min/1.73m 2 BUN Creatinine Ratio13.5Cqnksmn4.58.5-10.1 mg/dLBilirubin Total0.60.2-1.0 mg/dL Aspartate Amino Mnlbczszaho2016-97 U/LAlanine Yhyoqqmridcwmaxi4785-97 U/L Alkaline Vjukqiiusdn49267-161 U/LTotal Protein6.76.4-8.2 g/dLAlbumin Level2.7 3.4-5.0 g/dLGlobulin4.0Albumin Globulin Ratio0.7Performing Lab:see noteML - [facility] LBLIPID PROFILE Reviewed date:06/28/2024 11:53:33 AM Interpretation: Performing Lab: Notes/Report: [facility] ,Oqictvrlwiubl52<=150 mg/iYVwlnfdnxjkn333<=200 mg/dLHDL Rjjdtmttkfp5779-67 mg/dL > or =60 mg/dl - LOW CARDIOVASCULAR RISK <40 mg/dl - HIGH CARDIOVASCULAR RISK LDL Cholesterol Guxdpxmqsa51.8 <100 mg/dl OPTIMAL 100-129 mg/dl NEAR OR ABOVE OPTIMAL 130-159 mg/dl BORDERLINE HIGH 160-189 mg/dl HIGH >190 mg/dl VERY HIGH VLDL RAPPBNBNYGK91.2Chol HDL Ratio2.1 3.3 - 4.4 LOW RISK 4.4 - 7.1 AVERAGE RISK 7.1 - 11.0 MODERATE RISK >11.0 HIGH RISK Performing Lab:see noteML - [facility] LBIRON Reviewed date:06/28/2024 11:53:33 AM Interpretation: Performing Lab: Notes/Report: [facility] ,Iron19.050.0-170.0 ug/dLPerforming Lab:see noteML - [facility] LB GLYCOHEMOGLOBIN A1C Reviewed date:06/28/2024 11:53:33 AM Interpretation: Performing Lab: Notes/Report: [facility] ,Glycohemoglobin A1C6.04.5-6.2 % ADA RECOMMENDED LIMIT 4.0 - 6.0 ADA THERAPEUTIC TARGET < 7.0 ACTION SUGGESTED > 7.0 Estimated Average Ympdhmm327Puxzlnebyy Lab:see noteML - [facility] FREE T3 Reviewed date:06/28/2024 11:53:33 AM Interpretation: Performing Lab: Notes/Report: [facility] ,Free T31.642.18-3.98 pg/mLPerforming Lab:see noteML - [facility] LB CBC AUTO DIFF Reviewed date:06/28/2024 11:53:33 AM Interpretation: Performing Lab: Notes/Report: [facility] ,White Blood Count12.74.0-11.0 10 3/uLRed Blood Count4.034.20-5.40 10 6/uL Vtzsbyofgf95.812.0-16.0 g/rZAekxkobeev37.836.0-48.0 %Mean Corpuscular Wmmjeo18.8 81.0-99.0 fLMean Corpuscular Zxsasysjbx96.326.7-34.0 pgMean Corpuscular HGB Conc 33.029.9-35.2 g/dLRed Cell Distribution Width12.811.0-15.0 %Platelet Alhqd522 150-450 10 3/uLMean Platelet Xsfivy10.09.5-13.5 fLNeutrophils Percent Auto72.8 43.0-75.0 %Lymphocytes Percent Auto16.120.5-60.0 %Monocytes Percent Auto9.31.7- 12.0 %Eosinophils Percent Auto1.20.9-7.0 %Basophils Percent Auto0.20.2-2.0 % Immature Granulocytes Pct Auto0.40.0-0.5 %Neutrophils Absolute Auto9.21.4-6.5 10 3/uLLymphocytes Absolute Auto2.01.2-3.8 10 3/uLMonocytes Absolute Auto1.20.3-0.8 10 3/uLEosinophils Absolute Auto0.20.0-0.7 10 3/uLBasophils Absolute Auto0.00.0- 0.1 10 3/uLImmature Granulocytes Abs Auto0.050.00-0.03 10 3/uLPerforming Lab:see noteML - [facility] LBIFE, PE and FLC, Serum Reviewed date:06/28/2024 11:53:33 AM Interpretation: Performing Lab: Notes/Report: [facility] ,Immunoglobulin G, Qn, [id number] mg/dLImmunoglobulin A, Qn, Kfmew93748- 352 mg/dLImmunoglobulin M, Qn, Mpkpi62966-724 mg/dLProtein, Total7.06.0-8.5 g/dL Albumin3.52.9-4.4 g/bSAumsh-3-Rhxvdbub5.30.0-0.4 g/eKGlcaa-5-Aocbswho7.90.4-1.0 g/dLBeta Globulin1.10.7-1.3 g/dLGamma Globulin1.20.4-1.8 g/dLM-SpikeComment:Not Observed g/dL Due to the small quantity of monoclonal protein, unable to quantitate the M-spike. Globulin, Total3.52.2-3.9 g/dLA/G Ratio1.10.7-1.7Immunofixation Result, Serum Comment. Immunofixation shows IgG monoclonal protein with lambda light chain specificity. Please note:Comment. Protein electrophoresis scan will follow via computer, mail, or continuous churn buttermaker delivery. Free [place] Lt Chains,S61.63.3-19.4 mg/LFree Lambda Lt Chains,S52.55.7-26.3 mg/L [place]/Lambda Ratio,S1.170.26-1.65 Performed at: [facility] [address] [id number] Production Control Technologist: Lex Munguia PhD, Phone: [phone] Performing Lab:[facility] LBPROF 14(COMP METB) Reviewed date:06/28/2024 11:53:34 AM Interpretation: Performing Lab: Notes/Report: [facility] ,Rzmmff598720-044 mmol/LPotassium3.63.5-5.1 mmol/WTwgyfcqj21934-776 mmol/LCarbon Fwraaee50.821.0-32.0 mmol/LAnion Gap12.3Ospybqu36160-288 mg/dLBlood Urea Svczrjnz39.07.0-18.0 mg/dLCreatinine1.520.55-1.02 mg/dLEstimated GFR ( Edtvmam44>=60 mL/min/1.73m 2Estimated GFR (Non- Ame34>=60 mL/min/1.73m 2 BUN Creatinine Ratio7.0Jeakzjv6.98.5-10.1 mg/dLBilirubin Total0.30.2-1.0 mg/dL Aspartate Amino Agwlatgbdvb5970-56 U/LAlanine Sikwawdxvesubime4598-74 U/L Alkaline Yxherfqlama54599-467 U/LTotal Protein7.56.4-8.2 g/dLAlbumin Level3.2 3.4-5.0 g/dLGlobulin4.3Albumin Globulin Ratio0.7Performing Lab:see noteML - [facility] LBCBC AUTO DIFF Reviewed date:06/28/2024 11:53:33 AM Interpretation: Performing Lab: Notes/Report: [facility] ,White Blood Count8.44.0-11.0 10 3/uLRed Blood Count4.134.20-5.40 10 6/uL Qpovjnocqn47.312.0-16.0 g/hFDotbuzysbm18.836.0-48.0 %Mean Corpuscular Obpnqj66.5 81.0-99.0 fLMean Corpuscular Kzxtlohyuj17.826.7-34.0 pgMean Corpuscular HGB Conc 32.529.9-35.2 g/dLRed Cell Distribution Width13.111.0-15.0 %Platelet Gwgms113 150-450 10 3/uLMean Platelet Sgypzh46.39.5-13.5 fLNeutrophils Percent Auto71.1 43.0-75.0 %Lymphocytes Percent Auto20.420.5-60.0 %Monocytes Percent Auto6.31.7- 12.0 %Eosinophils Percent Auto1.30.9-7.0 %Basophils Percent Auto0.70.2-2.0 % Immature Granulocytes Pct Auto0.20.0-0.5 %Neutrophils Absolute Auto6.01.4-6.5 10 3/uLLymphocytes Absolute Auto1.71.2-3.8 10 3/uLMonocytes Absolute Auto0.50.3-0.8 10 3/uLEosinophils Absolute Auto0.10.0-0.7 10 3/uLBasophils Absolute Auto0.10.0- 0.1 10 3/uLImmature Granulocytes Abs Auto0.020.00-0.03 10 3/uLPerforming Lab:see noteML - [facility] LB Reason For Referral No Information Medications Medication SIG (Take, Route, Frequency, Duration) Notes Start Date End Date Status Cytomel 5 MCG 1 tablet on an empty stomach Ora lly Once a day; Duration: 90 days 5ActivepredniSONE 20 MG2 tablets Orally Once a day; Duration: 5 days 06/20/2024tiveSynthroid 137 MCG1 tablet in the morning on an empty stomach Orally Once a day; Duration: 90 days5ActiveCitalopram Hydrobromide 40 mgTAKE 1 TABLET BY MOUTH ONCE DAILY; Duration: 90 daysActiveCoreg 25 MG1 tablet with food Orally Twice a day; Duration: 30 daysActiveAspirin 81 81 MG1 tablet Orally Once a dayActiveVitamin D (Ergocalciferol) 1.25 MG (04799 UT)1 capsule Orally once weeklyActivepredniSONE 20 MG2 tablets Orally Once a day; Duration: 5 days12/23/2024tivePantoprazole Sodium 40 mgTAKE 1 TABLET BY MOUTH ONCE DAILY; Duration: 90ActiveBreztri Aerosphere 160/9/4.8 mcgas directed inhalation 2 puffs BID; Duration: 30 days12/16/2024tiveAzithromycin 250 MG2 tabs today then 1 tab Orally daily; Duration: 5 days12/23/2024tiveLisinopril 20 MG1 tablet Orally Once a day; Duration: 90 days5Active Immunizations Vaccine Route Administration Date Status Comme nts Flu, (40801) -historic- Whole Unknown 02/11/2015 Admini stered Flu, Flucelvax (8124-0525) (65566) 6 mos and older, single-dose syringeIM Zghpwnzufdgjx34/07/2023AdministeredFlu, Flucelvax (38682) 2 yrs+, single-dose syringe (7963-4581)Dlwiowy8001/13/2020AdministeredFlu, Flucelvax (10209) 2 yrs+, single-dose syringe (2770-4775)Caltrem91/20/3750MbuppidmbvyeKXDQ-WRG-7 (COVID 19 Moderna - Booster 0.25mL)Aemkfyc45/13/9047VmjpbeawlmmaYKJB-UGE-4 (COVID 19 Moderna - Booster 0.25mL)Etbbgfi97/10/8062MeqwfumrjpjeQOXV-GJY-0 (COVID 19 Moderna - Booster 0.25mL)Ooxyfsn57/27/2021Administered Social History Tobacco Use: Social History Observation [...] alcohol in the p ast year? No Vznzqi8MdzfdhidamjijvAvvwcxsbNZXVB-W (Standard) Question Answer Notes Did you have a drink containing alcohol in the p ast year? No Nxondt6XywhhxxynnekygLyspvqmz Problems Problem Type SNOMED Code ICD Code Onset Dates Problem Status W/U Status Risk Notes Problem Atherosclerotic hear t disease of [place] coronary artery without angina pectoris (977980971522242) Atherosclerotic heart disease of [place] coronary artery without angina pectoris (I25.10) ActiveconfirmedProblemChronic ischemic heart disease (219751039)Chronic ischemic heart disease, unspecified (I25.9)ActiveconfirmedProblemAcute frontal sinusitis (66676186)Acute recurrent frontal sinusitis (J01.11)ActiveconfirmedProblem Lumbosacral spondylosis without myelopathy (64023351)Other spondylosis, lumbar region (M47.896)ActiveconfirmedProblemFibromyalgia (901806196)Fibromyalgia (M79.7)ActiveconfirmedProblemAcute renal failure syndrome (40630408)Acute kidney failure, unspecified (N17.9)ActiveconfirmedProblemAcute cystitis (19792682)Acute cystitis with hematuria (N30.01)ActiveconfirmedProblemChest pain (21463577)Chest pain (R07.9)ActiveconfirmedProblemHyperlipidemia (59336524)Hyperlipidemia (E78.5)ActiveconfirmedProblemChronic obstructive pulmonary disease (92991122) Chronic obstructive pulmonary disease (J44.9)ActiveconfirmedProblemHypertension (37443820)Hypertension (I10)ActiveconfirmedProblemOsteoarthritis (939580249) Osteoarthritis (M19.90)ActiveconfirmedProblemAngina pectoris (483264841)Angina pectoris (I20.9)ActiveconfirmedProblemCigarette smoker (51264970)Cigarette smoker (F17.210)ActiveconfirmedProblemAsthma (414749154)Asthma (J45.909)Active confirmedProblemMitral valve disorder (05850926)Moderate mitral regurgitation (I34.0)ActiveconfirmedProblemHypothyroidism (23207642)Hypothyroidism (E03.9) ActiveconfirmedProblemNeck pain (40443024)Neck pain (M54.2)Activeconfirmed ProblemOsteopenia (554230032)Osteopenia (M85.80)ActiveconfirmedProblemInsomnia (740732664)Insomnia (G47.00)ActiveconfirmedProblemEczema (23144922)Eczema (L30.9)ActiveconfirmedProblemChronic fatigue syndrome (25593734)Chronic fatigue (R53.82)ActiveconfirmedProblemLumbar radiculopathy (025660878)Lumbar radiculopathy (M54.16)ActiveconfirmedProblemAcute sinusitis (79043150)Acute sinusitis (J01.90)ActiveconfirmedProblemDisplacement of lumbar intervertebral disc without myelopathy (20210984)Lumbar herniated disc (M51.26)Activeconfirmed ProblemWell adult (032801657)Well adult (Z00.00)ActiveconfirmedProblemAcquired hypothyroidism (875545850)Acquired hypothyroidism (E03.9)ActiveconfirmedProblem Irritable bowel syndrome (17290259)Irritable bowel syndrome (K58.9)Active confirmedProblemDegenerative disc disease (34974946)DDD (degenerative disc disease), lumbar (M51.36)ActiveconfirmedProblemMultiple sclerosis (90286199) Multiple sclerosis (G35)ActiveconfirmedProblemImpingement syndrome of shoulder region (659986217)Shoulder impingement (M75.40)ActiveconfirmedProblemAcute systolic heart failure (010936233)Acute systolic heart failure (I50.21)Active confirmedProblemOverweight (479717119)Over weight (E66.3)ActiveconfirmedProblem Seasonal allergic rhinitis (885854355)Allergic rhinitis, seasonal (J30.2)Active confirmedProblemThoracic outlet syndrome (688258075)Thoracic outlet syndrome (G54.0)ActiveconfirmedProblemLeft lower quadrant pain (792119735)Abdominal pain, LLQ (R10.32)ActiveconfirmedProblemHashimoto's disease (91220452)Saloni's disease (E06.3)ActiveconfirmedProblemDiverticular disease of colon (116390657) Colon, diverticulosis (K57.30)ActiveconfirmedProblemFibrocystic breast changes (68894078)Fibrocystic breast disease (N60.19)ActiveconfirmedProblemTrigger finger of right hand (93569629103907437)Trigger finger of right hand (M65.30) ActiveconfirmedProblemRecurrent major depression (48540313)Depression, major, recurrent, in remission (F33.40)ActiveconfirmedProblemDiabetic peripheral neuropathy associated with type 2 diabetes mellitus (9564794955587)Type 2 diabetes, controlled, 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)ActiveconfirmedProblem Raynaud's disease (770975286)Raynaud's disease (I73.00)ActiveconfirmedProblem Peripheral vertigo (41151659)Vertigo, peripheral (H81.399)ActiveconfirmedProblem Bruising (360847184)Bruising (T14.8XXA)ActiveconfirmedProblemChronic kidney disease stage 3B (disorder) (726983770)Chronic kidney disease, stage 3b (N18.32) ActiveconfirmedProblemCough (finding) (98569317)Other cough (R05.8)Active confirmed Vital Signs Temperature 97.4 degrees Fahrenheit 12/23/2024 Stkwsehx37 %06/20/2024lood pressure jkegcyjqy62 mm Hg12/23/20241943Agurod12 in 12/23/2024lood pressure mm Hg12/23/20246146Kxlfdy908.6 lbs1MI 27.18 kg/m212/23/2024 Encounters Encounter Location Date Provider Diagnosis [facility] [address] [place] [address] 08/14/2024 Zaire Hoy Acute bronchitis, unspecified organism J20.9 [facility] [address] [place] [place] [address] 02/13/2024 Zaire Hoy Acute non-recurrent sinusitis, unspecified location J01.90 and Nasal congestion R09.81 [facility] [address] [place] [place] [address] 06/20/2024 Zaire Hoy Chronic obstructive pulmonary disease J44.9 and Acute bronchitis, unspecified organism J20.9 [facility] [address] [place] [place] [address] 12/23/2024 Zaire Hoy Body aches R52 ; Chronic kidney disease, stage 3b N18.32 and Acute bronchitis, unspecified organism J20.9 [facility] [address] [place] [place] [address] 08/27/2024 [facility] [address] [place] [place] [address]/ [facility] [address] [place] [place] [address]/[facility] [address] [place] [place] [place] [address]/[facility] [address] [place] [place] [address]/[facility] [place] [place] [address]/Doug Hoy Acute kidney failure, unspecified N17.9[facility] [place] [place] [address]/Doug [facility] [place] [place] [address]/Doug [facility] [place] [place] [address]/08/2024 Zaire HoyAcute bronchitis, unspecified organism J20.9[place] [address] [place] [address]/11/2024Doug Hoy Hypothyroidism E03.9[place] [address] [place] [address]/12/2024Doug HoyChronic obstructive pulmonary disease J44.9 and Hypothyroidism E03.9[place] [address] [place] [address]/09/2024Doug HoyAcute bronchitis, unspecified organism J20.9 and Acquired hypothyroidism E03.9[facility] [address] [place] [place] [address]/08/2024Doug HoyChronic obstructive pulmonary disease J44.9 and Hypothyroidism E03.9[place] [address] [place] [address]/10/2024Doug [place] [address] [facility] [place] [address] 01/23/2025Doug HoyHypertension I10 and Acute bronchitis, unspecified organism J20.9[place] [address] [place] [address] 07/07/2024Doug HoyHypertension I10 Assessments Encounter Date Diagnosis (ICD Code) Assessment Notes Treatment Notes Treatment Clinical Notes Section Notes 06/28/2024 Acute kidney failure, unspecifie d (ICD-10 - N17.9) 5Acute bronchitis, unspecified organism (ICD-10 - J20.9)11/18/2024 Hypothyroidism (ICD-10 - E03.9)11/19/2024hronic obstructive pulmonary disease (ICD-10 - J44.9)07/07/2024Hypertension (ICD-10 - I10)5Acute bronchitis, unspecified organism (ICD-10 - J20.9)Rest and drink more liquids, especially water. You may use a humidifier or vaporizer to help keep the drainage moist. Trfv-eoq-znqguxq Nasal Saline may help the stuffy and runny nose. Use Ibuprofen and or Tylenol as needed for fever, chills, body aches or pain. Children 5 years old should not be given ruop-wmu-rylnear cough and cold medications such as guaifenesin and dextromethorphan. If you're over age 5, you may try kbhn-zhw-fudwnvs cold medications such as guaifenesin and dextromethorphan, [...] chest pain you should go to the [facility] or call [phone] aches (ICD-10 - R52)5Chronic kidney disease, stage 3b (ICD-10 - N18.32)5Acute bronchitis, unspecified organism (ICD-10 - J20.9)5Chronic obstructive pulmonary disease (ICD-10 - J44.9)4Acute non-recurrent sinusitis, unspecified location (ICD-10 - J01.90)Rest and drink more liquids, especially water. You may use a humidifier or vaporizer to help keep the drainage moist. Pdtx-zlu-haombwz Nasal Saline may help the stuffy and runny nose. Use Ibuprofen and or Tylenol as needed for fever, chills, body aches or pain. Children 5 years old should not be given iskh-kah-ffyuuau cough and cold medications such as guaifenesin and dextromethorphan. If you're over age 5, you may try zsgn-omy-hmxzepr cold medications such as guaifenesin and dextromethorphan, [...] if symptoms do not improve within 3-5 days06/20/2024hronic obstructive pulmonary disease (ICD-10 - J44.9)01/23/2025 Hypertension (ICD-10 - I10)5Acute bronchitis, unspecified organism (ICD-10 - J20.9)5Acute bronchitis, unspecified organism (ICD-10 - J20.9)Rest and drink more liquids, especially water. You may use a humidifier or vaporizer to help keep the drainage moist. Iaax-pso-wdrendg Nasal Saline may help the stuffy and runny nose. Use Ibuprofen and or Tylenol as needed for fever, chills, body aches or pain. Children 5 years old should not be given solw-axn-rkqnvqy cough and cold medications such as guaifenesin and dextromethorphan. If you're over age 5, you may try defg-bqs-hyptwxi cold medications such as guaifenesin and dextromethorphan, [...] go to the emergency room or call [phone] congestion (ICD-10 - R09.81)01/15/2025Hypothyroidism (ICD-10 - E03.9)5Acquired hypothyroidism (ICD-10 - E03.9)11/19/2024 Hypothyroidism (ICD-10 - E03.9)5Acute bronchitis, unspecified organism (ICD-10 - J20.9)Rest and drink more liquids, especially water. You may use a humidifier or vaporizer to help keep the drainage moist. Qxns-hsd-iqymhwd Nasal Saline may help the stuffy and runny nose. Use Ibuprofen and or Tylenol as needed for fever, chills, body aches or pain. Children 5 years old should not be given twtu-aud-dgnnupd cough and cold medications such as guaifenesin and dextromethorphan. If you're over age 5, you may try yufp-yjr-drbthtc cold medications such as guaifenesin and dextromethorphan, [...] for Screening* 023 STOOL OCCULT BLOOD 06/20/2024 AMYLASE 02/06/2025 CBC AUTO DIFF 02/06/2025 GLYCOHEMOGLOBIN A1C 06/27/2022 LIPASE 02/06/2025 LIVER PROFILE 02/06/2025 PROF CHEM 8 (BAS METB) 02/06/2025 PROF CHEM 8 (BAS METB) 05/08/2023 PROF CHEM 8 (BAS METB) 05/19/2023 PROF CHEM 8 (BAS METB) 04/23/2023 THYROID ANTIBODIES 12/16/2024 VITAMIN D 25 OH 06/27/2022 US KIDNEYS 06/28/2024 US KIDNEYS BLADDER 05/19/2023 THYROID PANEL (T4/TSH/FREE T3) 3 THYROID PANEL (T4/TSH/FREE T3) 5 THYROID PANEL (T4/TSH/FREE T3) 5 THYROID PANEL (T4/TSH/FREE T3) 5 THYROID PANEL (T4/TSH/FREE T3) 5 THYROID PANEL (T4/TSH/FREE T3) 5 CMP (COMP MET ZHAO) w/eGFR CKD-EPI 2024 CBC WITH DIFF 06/20/2024 Next Appt Details Provider Name:ROMI ARMIJO , 02/17/2025 10:30:00 AM, [address] [place], [address], Insurance Providers Payer Name Payer Address Payer Phone Subscriber Number Group Number Insured Name Patient Relationship to Insured Coverage Start Date Coverage End Date [employer] MEDICARE [address] [address] [place], [place] [id number] [phone] [id number] Myriam Pantoja Self - patient is the [...]
--- OUTSIDE RECORDS SUMMARY | 2025-02-06 11:20 | XMS_ITS | Clinical Summary ---
Author Organization [employer] Address [id number] [place] [address] Care Team Providers Care Video Game Engineer Name Role Phone Jonatan Teague MD Primary Care Provider [phone] Allergies Active AllergyReactionsCriticalityNoted DateCommentsPenicillin KXgfus9506/04/2018 Medications MedicationSigDispense QuantityRefillsLast FilledStart DateEnd DateStatus citalopram [...] 0.6 oz pure alcohol)AUDIT-CAnswerDate RecordedFrequency of Alcohol GchutasuehnGejwo29/26/2019Average Number of DrinksNot on file06/04/2018Frequency of Binge DrinkingNot on file06/04/2018ChildcareAnswerDate RecordedChildcare Zkefaiy0308/21/2018EmploymentAnswerDate MekxvlcbSthnrhouurKsjzhvr49/12/2019Purpose - LifeAnswerDate RecordedPurpose and direction in zefcFbvpvti66/11/2021 CommentsNoSex and Gender InformationValueDate RecordedSex Assigned at BirthNot on fileLegal XrdWwqosn95/06/2015 11:32 AM EDTGender IdentityNot on fileSexual OrientationNot on file Last Filed Vital Signs Vital SignReadingTime TakenCommentsBlood Xuwtvdpi47/4602/20/2019 3:14 AM EST Hdgnv364102/20/2019 3:29 AM AVGJfmljepaoue48.3 ??C (97.4 ??F)02/19/2019 10:30 PM ESTRespiratory Fvge441804/23/2018 3:29 AM ESTOxygen Uobaeohrsi63%02/20/2019 3:29 AM ESTInhaled Oxygen Concentration--Epbtyk35 kg (150 lb)02/19/2019 10:30 PM EST Zpdsae085.5 cm (5' 2 )02/19/2019 10:30 PM ESTBody Mass Index27.44104/22/2018 10:30 PM EST Plan of Treatment Health MaintenanceDue DateLast DoneCommentsDepression Btumonapa12/27/1971Tobacco Vkqyzveww93/27/1971Adult BMI Yfqkgjwsi04/27/1977DTaP,Tdap and Td Vaccines (1 - Tdap)1977Zoster (Shingles) Vaccine (1 of 2)2008Fall Risk Screening 2023Influenza Aipmaex0511/10/2024RSV ( or age 60+ yrs) (1 - 1-dose 75+ series)2033 Medical Devices ImplantedTypeAreaManufacturerDevice IdentifierShelf Expiration DateModel / Serial / LotLens Iol Ultrasert 20.5d - [id number] - [id number] Implanted:Qty: 1 on 06/06/2018 [facility] [id number] 20.5 / [id number] / N/ALens Iol Ultrasert 20.5d - [id number] 20.5 - [id number] Implanted:Qty: 1 on 06/20/2018 [facility] [id number] 20.5 / [id number] 20.5 / [id number] Insurance Care Teams Team MemberRelationshipSpecialtyStart DateEnd Date Jonatan Teague MD PCP - GeneralFamily Medicine06/04/18
--- OUTSIDE RECORDS SUMMARY | 2025-02-06 11:20 | XMS_ITS | Clinical Summary ---
Author Organization [facility] Address [address] [place] [address] Care Team Providers Care Political Science Chair Name Role Phone Jonatan Teague MD Primary Care Provider [phone] Allergies Active AllergyReactionsCriticalityNoted DateCommentsAcetaminophenNausea And Thugxeep75/02/2025Propoxyphene N-QhrxstootoonhAfbqf74/19/2014PenicillinsHives Xdkdnf7602/27/2014PropoxypheneNausea And Sanafgxe68/02/2025 Medications MedicationSigDispense QuantityRefillsLast FilledStart DateEnd DateStatus levothyroxine [...] mg 24 hr tablet Indications:Coronary arteriosclerosis in [place] artery,Atypical chest painTake 1 tablet (30 mg) by mouth in the morning. Do not crush or chew. 90 tablet 4Active Additional Information Patient not taking.Reported on 11/13/2024 ergocalciferol (Vitamin D-2) 1.25 MG (06638 Units) capsule Take 1 capsule by mouth 1 (one) time per week.Active lisinopril 20 mg tablet Take 20 mg by mouth in the morning.5Active Trelegy Ellipta 200-62.5-25 mcg blister with device 5Active ezetimibe (Zetia) 10 mg tablet Indications:Coronary arteriosclerosis in [place] artery,Mixed hyperlipidemiaTake 1 tablet (10 mg) by mouth at bedtime. 90 tablet 5Active hydrALAZINE (Apresoline) 25 mg tablet Indications:Essential hypertensionTake 1 tablet (25 mg) by mouth three times daily. 270 tablet 6Active simvastatin (Zocor) 20 mg tablet Indications:Coronary arteriosclerosis in [place] artery,Mixed hyperlipidemiaTake 1 tablet (20 mg) by mouth at bedtime. 90 tablet 5Active ezetimibe (Zetia) 10 mg tablet Indications:Coronary arteriosclerosis in [place] artery,Mixed hyperlipidemiaTake 1 tablet (10 mg) by mouth at bedtime. 90 tablet Discontinued(Reorder) simvastatin (Zocor) 20 mg tablet Indications:Coronary arteriosclerosis in [place] artery,Mixed hyperlipidemiaTake 1 tablet (20 mg) by mouth at bedtime. 90 tablet Discontinued(Reorder) hydrALAZINE (Apresoline) 25 mg tablet Indications:Essential hypertensionTake 1 tablet (25 mg) by mouth three times daily. 270 tablet Discontinued(Reorder) ezetimibe (Zetia) 10 mg tablet Indications:Coronary arteriosclerosis in [place] artery,Mixed hyperlipidemiaTake 1 tablet (10 mg) by mouth at bedtime. 90 tablet Discontinued(Reorder) hydrALAZINE (Apresoline) 25 mg tablet Indications:Essential hypertensionTake 1 tablet (25 mg) by mouth three times daily. 270 tablet /08/2024Discontinued(Reorder) simvastatin (Zocor) 20 mg tablet Indications:Coronary arteriosclerosis in [place] artery,Mixed hyperlipidemiaTake 1 tablet (20 mg) by mouth at bedtime. 90 tablet Discontinued(Reorder) Active Problems ProblemNoted DateDiagnosed DateCKD (chronic kidney disease) stage 3, GFR 30-59 ml/min12/03/20234856Tfpddqxgdpiqm21/23/1643Jupqjxoyuarccl86/23/2024MGUS (monoclonal gammopathy of unknown significance)12/03/2023Secondary hyperparathyroidism 12/03/2023cute [...] HTN is controlled. Impingement syndrome of shoulder ewmtje87Mitral valve dwfxsdhzthpis80/09/2023 Assessment & Plan (03/14/2023 4:23 PM EST): No concerning symptoms today Monitor with echocardiogram and F/u assessment of any concerning symptoms Assessment & Plan (10/31/2022 12:07 PM EDT): Stable Monitor with routine echocardiograms Essential iyqzebttirkw69/11/2014 Assessment & Plan (05/11/2023 10:43 AM EST): [...] to call and update pt. Delfina Lawson DRESSING MACHINE OPERATOR Division of Cardiology, [facility]- [phone] Pager- [phone] Email- [email or web address] Assessment & Plan (03/14/2023 4:24 PM [...] pt to reach out community resources, her protestant, family and friends for assistance. IF any concerning symptoms she is to call office or 911 and she voiced understanding of red flag symptoms. Darhjyk1812/23/2012 Assessment & Plan (03/14/2023 4:26 PM EST): Will send script for meclizine for S/S of vertigo- pt to f/u with PCP for further evaluation and management Extfhqygijwt58/11/2013cquired wmlcmhkwkruzwv30/03/2013bnormal liver function tests02/05/2012Multiple sbxkxhsyw24/22/2012Coronary arteriosclerosis in [place] ffunrf9310/23/2011 Assessment & Plan (04/12/2023 12:07 PM EST): [...] likely r/t emotional/family stress and uncontrolled b/p. Ivseiqtuqnrpjk64/08/2012 Assessment & Plan (05/11/2023 10:44 AM EST): [...] turmoil in her life Type 1 diabetes nmctkwee41/08/2012 Encounters DateTypeDepartmentCare CijmKncuhhdxfik21/06/2025[facility] [address] [place] [facility] [place] [address] eJnnifer Moe MA Coronary arteriosclerosis in [place] artery; Mixed hyperlipidemia; Essential phtxgnicxasr91/05/2025[facility] [address] [place] [facility] [place] [address] Merry Layne MA Coronary arteriosclerosis in [place] artery; Mixed hyperlipidemia; Essential ixbucitxnzba72/04/2025 10:20 AM EDTOffice Visit [facility] [place] [address] [place] [facility] [place] [address] Sophia Domingo CNP Uncontrolled hypertension (Primary Dx); Coronary arteriosclerosis in [place] artery; Mixed hyperlipidemia; Essential hypertension; Stage 3b chronic kidney disease (CMS/HCC)from Last 3 Months Immunizations ImmunizationAdministration DatesNext DueInfluenza, Xciqvswkncn46/14/2017 Influenza, injectable, MDCK, preservative free, ptguvhyewvvi71/20/2021, 01/13/2020Influenza, seasonal, injectable, preservative free, 6 moonths & older 02/11/2015Moderna SARS-CoV-2 Axtfwggjzmw67/27/2021,06/19/2020,05/22/2020 Family History Medical HistoryRelationNameCommentslung cancerFatherDementiaMotherDiabetesMother Heart failureMotherRelationNameStatusCommentsFatherMother Social History Tobacco UseTypesPacks/DayYears UsedDateSmoking Tobacco: Every DayCigarettes Smokeless Tobacco: Never Tobacco Cessation:Ready to Q uit: Not Asked; Counseling Given: Not Answered Alcohol UseStandard Drinks/WeekCommentsNot Currently0 (1 standard drink = 0.6 oz pure alcohol)UT Safety & EnvironmentAnswerDate RecordedFear of Current or Ex-PartnerNot on file05/03/2023Emotionally AbusedNot on file05/03/2023hysically AbusedNot on file05/03/2023Sexually AbusedNot on file05/03/2023hysically or Sexually AbusedNot on file05/03/2023CommentsUnknownSex and Gender InformationValueDate RecordedSex Assigned at QgoebUxrucv82/03/2025 11:20 AM EDT Legal QtoBpvkkh81/29/2022 9:14 PM EDTGender IzryzryuHpcnik05/03/2025 11:20 AM EDTSexual OrientationHeterosexual or Gffvgbau76/03/2025 11:20 AM EDT Last Filed Vital Signs Vital SignReadingTime TakenCommentsBlood Fwxabama919/8211/13/2024 11:03 AM EDT Nakye887911/13/2024 10:35 AM EDTTemperature--Respiratory Rate--Oxygen Saturation 98%11/13/2024 10:35 AM EDTInhaled Oxygen Concentration--Imrdar54.1 kg (148 lb) 11/13/2024 10:35 AM MGZHysrlv099.5 cm (5' 2 )11/13/2024 10:35 AM EDTBody Mass Index27.0711/13/2024 10:35 AM EDT Plan of Treatment DateTypeDepartmentCare Team (Latest Contact Info)Rpvsadpbadx51/09/2025 10:20 AM ESTOffice Visit [facility] [address] [place] [address] Sophia Domingo, SAFETY DEPOSIT SUPERVISOR [address] [place] [address] Health MaintenanceDue DateLast DoneCommentsCT Amarqoylpmcm52/27/1959Colonoscopy 1958Colorectal Cancer Yubanynqj73/27/1959Diabetes: Hemoglobin A1C 1958FIT-DNA1958FIT1958FOBT1958Medicare Annual Wellness (AWV)1958 0864Wczqvvwbtwfru03/27/1959Diabetes: Retinopathy Imhluabgm44/27/1969 Depression Fhgrcnorv26/27/1971Diabetes: Urine Protein Ilhgesvtn74/27/1978 Pneumococcal Vaccine: 50+ Years (1 of 2 - PCV)1977Adult Pgnqoag5904/07/1980 Llimztypw65/27/1999Zoster Vaccines (1 of 2)2008Fall Risk Screening 4COVID-19 Vaccine ( season), 03/07/2021, 06/19/2020, Additional history existsInfluenza Vaccine (#1), 01/13/2020, 01/23/2017, Additional history existsHIB VaccinesAged OutNo [...] topic Insurance Care Teams Team MemberRelationshipSpecialtyStart DateEnd Date Jonatan Teague MD [address] [facility] [address] [address] [facility] - General03/20/22
--- OUTSIDE RECORDS SUMMARY | 2025-02-06 11:21 | XMS_ITS | Clinical Summary ---
Author Organization [facility] Address [address] [place] [address] Care Team Providers Care Liquor Bridge Operator Name Role Phone Unavailable Primary Care Provider Unavailabl e Social History Tobacco UseTypesPacks/DayYears UsedDateSmoking Tobacco: Never Assessed CommentsUnknownSex and Gender InformationValueDate RecordedSex Assigned at Not on fileLegal ZhhDkhkrw25/15/2023 7:08 PM EDTGender IdentityNot on fileSexual OrientationNot on file Plan of Treatment Not on file Insurance
[2025-02-06] MEDS: KETOROLAC TROMETHAMINE 30 MG/ML VIAL IVP (11:35)
[2025-02-06 11:57] LABS: Glucose Urine UA NEGATIVE (NEGATIVE)
[2025-02-06 12:18] LABS: Cast Seen? SEEN #/LPF (NONE SEEN); Crystals Seen? None Seen #/HPF (None Seen); Urine Culture Indicated NO
[2025-02-06 12:21] VITALS: BP 247/130; PULSE 66; O2SAT 97
[2025-02-06] MEDS: HYDRALAZINE HCL 20 MG/ML VIAL 10 MG IVP (12:27)
[2025-02-06 13:32] VITALS: BP 212/85
[2025-02-06 14:31] VITALS: BP 203/97; PULSE 76; O2SAT 97
[2025-02-06] MEDS: HYDRALAZINE HCL 20 MG/ML VIAL IVP (14:50)
== END 2025-02-06 15:10 | disposition short-term general hospital (02) ==
PROVIDERS: Emergency Provider Emergency Medicine; PCP Family Medicine
DX: D73.5 Infarction of spleen (principal)
CPT/HCPCS: 36415; 70450; 72125; 72131; 74177; 76376; 80048; 80076; 81001; 82150; 83690; 85025; 96374; 96375; 96376; 99285; J0360; J1885; Q9967

== ENCOUNTER 2025-02-23 14:12 | Outpatient (REF) | payer MEDICARE, MEDICAID, SELFPAY ==
[2025-02-23 15:14] LABS: Hematocrit 25.4 % (36.0-48.0); Hemoglobin 7.9 g/dL (12.0-16.0); Mean Corpuscular HGB Conc 31.1 g/dL (29.9-35.2); Mean Corpuscular Hemoglobin 31.3 pg (26.7-34.0); Mean Corpuscular Volume 100.8 fL (81.0-99.0); Platelet Count 326 10^3/uL (150-450); Red Blood Count 2.52 10^6/uL (4.20-5.40); White Blood Count 15.9 10^3/uL (4.0-11.0)
[2025-02-23 15:15] LABS: Alanine Aminotransferase 24 U/L (14-59); Albumin Globulin Ratio 0.5; Albumin Level 2.2 g/dL (3.4-5.0); Alkaline Phosphatase 173 U/L (46-116); Anion Gap 15.8; Aspartate Amino Transferase 40 U/L (15-37); Blood Urea Nitrogen 24.0 mg/dL (7.0-18.0); Calcium 8.4 mg/dL (8.5-10.1); Carbon Dioxide 22.6 mmol/L (21.0-32.0); Chloride 97 mmol/L (98-107); Estimated GFR (African America 30 (>=60 mL/min/1.73m^2); Estimated GFR (Non-African Ame 25 (>=60 mL/min/1.73m^2); Globulin 4.3 g/dL; Glucose 153 mg/dL (74-106); Potassium 4.4 mmol/L (3.5-5.1); Sodium 131 mmol/L (136-145); Total Protein 6.5 g/dL (6.4-8.2)
== END 2025-02-23 14:13 | disposition home or self-care (01) ==
LOC: LAB 14:12
PROVIDERS: PCP Family Medicine; Visit Provider Family Medicine
DX: I10 Essential (primary) hypertension (principal)
CPT/HCPCS: 36415; 80053; 85027